=== PATIENT | female | born 1955 | race Caucasian/White ===

== ENCOUNTER 2017-10-12 14:17 | Emergency (ER) | payer MEDICAID ==
[~2017-10-12] VITALS: Ht 165.1 cm; Wt 101.4 kg
[~2017-10-12 14:17] MED LIST: ALBU18HF2 IH; ALLO100T PO; ASPI-611 PO; BUSP30TA2 PO; CLON0.5T23 PO; CLOP75TA33 PO; DULO-31 PO; GABA-532 PO; HYDR-565 PO; IPRA3AMP9 IH; LACT1CAP26 PO; LAMO200T PO; LANTUS SQ; LEVO750T46 PO; LISI10TA4 PO; METF1000 PO; NITR0.4T51 SL; PANT40TA4 PO; SITA50TA7 PO; TIOT18CA7 IH; TIZA-248 PO; TRIA15CR3 TOP; ZOLP10TA5 PO
[2017-10-12] MEDS ORDERED: methylPREDNISolone sod succ 125mg/2ml vial IV ONE (14:50)
[2017-10-12] MEDS ORDERED: ipratropium/albuterol 3ml nebule NEB ONE ×2 (14:50→18:45)
[2017-10-12 15:37] LABS: EOSINOPHILS % (AUTO) 4.8 % (0-6); HEMATOCRIT 38.3 % (35.0-45.0); HEMOGLOBIN 12.1 g/dl (12.0-16.0); LYMPHOCYTES % (AUTO) 27.1 % (21-51); MEAN CORPUSCULAR HEMOGLOBIN 25.1 PG (27.0-31.0); MEAN CORPUSCULAR HGB CONC 31.7 % (33.0-36.5); MEAN CORPUSCULAR VOLUME 79.4 FL (78-98); MEAN PLATELET VOLUME 6.9 FL (7.4-10.4); MONOCYTES % (AUTO) 7.4 % (2-12); NEUTROPHILS % (AUTO) 60.4 % (42-75); PLATELET COUNT 318 X10'3 (140-440); RED BLOOD COUNT 4.82 X10'6 (4.20-5.60); RED CELL DISTRIBUTION WIDTH 17.7 % (11.5-14.5); WHITE BLOOD COUNT 7.9 X10'3 (4.5-11.0)
[2017-10-12 15:38] LABS: BASOPHILS % (AUTO) 0.3 % (0-1); EOSINOPHILS # (AUTO) 0.4 X10'3 (0-0.9); LYMPHOCYTES # (AUTO) 2.1 X10'3 (1.1-4.8); MONOCYTES # (AUTO) 0.6 X10'3 (0-0.9); NEUTROPHILS # (AUTO) 4.8 X10'3 (1.8-7.7)
[2017-10-12 15:48] LABS: PARTIAL THROMBOPLASTIN TIME 25 SECONDS (22-32); PROTHROMBIN TIME 10.4 SECONDS (9.0-12.0)
[2017-10-12 15:54] LABS: ALANINE AMINOTRANSFERASE 218 U/L (12-78); ALBUMIN 3.3 G/DL (3.4-5.0); ALBUMIN/GLOBULIN RATIO 0.8 (1.1-1.5); ALKALINE PHOSPHATASE 119 IU/L (46-116); ANION GAP 9 (8-16); ASPARTATE AMINO TRANSFERASE 225 U/L (10-37); BILIRUBIN,TOTAL 0.3 MG/DL (0.1-1.0); BLOOD UREA NITROGEN 12 MG/DL (7-18); BUN/CREATININE RATIO 14.1 (6.6-38.0); CALCIUM 9.3 MG/DL (8.5-10.1); CHLORIDE 101 MMOL/L (99-107); CREATININE 0.85 MG/DL (0.40-0.90); GLUCOSE 129 MG/DL (70-104); POTASSIUM 4.2 MMOL/L (3.5-5.1); SODIUM 140 MMOL/L (135-145); TOTAL PROTEIN 7.2 G/DL (6.4-8.2); eGFR 68 ML/MIN
[2017-10-12 18:28] LABS: CLARITY,URINE Clear (Clear); COLOR,URINE Yellow (Yellow); GLUCOSE, URINE Negative (Neg); KETONES,URINE Negative (Neg); LEUKOCYTE ESTERASE ,URINE Negative (Neg); NITRITES, URINE Negative (Neg); OCCULT BLOOD,URINE Negative (Neg); PROTEIN,URINE Negative (Neg)
[2017-10-12 18:29] LABS: UA COLLECTION TYPE STRAIGHT CATH
[2017-10-12 19:09] VITALS: BP 132/63
[2017-10-22] MEDS ORDERED: PRED20TA PO (23:01)
[2017-10-22] MEDS ORDERED: AZIT250T2 PO (23:01)
== END 2017-10-12 19:11 | disposition home or self-care (01) ==
LOC: ER 14:18
DX: J44.1 Chronic obstructive pulmonary disease with (acute) exacerbation (principal); R74.0 Nonspecific elevation of levels of transaminase and lactic acid dehydrogenase [LDH]; I11.0 Hypertensive heart disease with heart failure; I50.9 Heart failure, unspecified; M19.90 Unspecified osteoarthritis, unspecified site; K21.9 Gastro-esophageal reflux disease without esophagitis; G89.29 Other chronic pain; G30.9 Alzheimer's disease, unspecified; F32.9 Major depressive disorder, single episode, unspecified; E78.00 Pure hypercholesterolemia, unspecified; E11.51 Type 2 diabetes mellitus with diabetic peripheral angiopathy without gangrene; F17.200 Nicotine dependence, unspecified, uncomplicated; F41.9 Anxiety disorder, unspecified; Z82.49 Family history of ischemic heart disease and other diseases of the circulatory system; Z95.1 Presence of aortocoronary bypass graft; Z90.710 Acquired absence of both cervix and uterus
CPT/HCPCS: 36415; 71010; 80053; 81003; 83880; 84484; 85025; 85610; 85730; 93005; 94640; 94760; 96374; 96375; 99285; A4353; J2930

== ENCOUNTER 2017-10-30 23:04 | Emergency (ER) | payer MEDICAID ==
[~2017-10-30] VITALS: Ht 165.1 cm; Wt 96.1 kg
[~2017-10-30 23:04] MED LIST changes: +AZIT250T2 PO; -LACT1CAP26 PO; -LEVO750T46 PO; +PRED20TA PO
[2017-10-31 00:11] LABS: CLARITY,URINE Clear (Clear); COLOR,URINE Yellow (Yellow); GLUCOSE, URINE >=1000 mg/dl (Neg); KETONES,URINE Negative (Neg); LEUKOCYTE ESTERASE ,URINE Negative (Neg); NITRITES, URINE Negative (Neg); OCCULT BLOOD,URINE Negative (Neg); PROTEIN,URINE Negative (Neg); UROBILINOGEN,URINE 0.2 E.U/dL (0.2-1.0)
[2017-10-31 00:47] LABS: UA COLLECTION TYPE VOIDED
[2017-10-31 01:12] LABS: BACTERIA,URINE FEW /HPF (Neg); MUCUS STRANDS NONE SEEN /LPF (Neg); RBC,URINE NONE SEEN /HPF (0-2); SQUAMOUS EPITHELIAL CELL,UR MODERATE /LPF (FEW); WBC,URINE NONE SEEN /HPF (0-4)
[2017-10-31 01:59] VITALS: BP 129/78
== END 2017-10-31 02:00 | disposition home or self-care (01) ==
LOC: ER 23:05
DX: E11.65 Type 2 diabetes mellitus with hyperglycemia (principal); G43.909 Migraine, unspecified, not intractable, without status migrainosus; I25.10 Atherosclerotic heart disease of native coronary artery without angina pectoris; I11.0 Hypertensive heart disease with heart failure; I50.9 Heart failure, unspecified; E78.00 Pure hypercholesterolemia, unspecified; J44.9 Chronic obstructive pulmonary disease, unspecified; K21.9 Gastro-esophageal reflux disease without esophagitis; M19.90 Unspecified osteoarthritis, unspecified site; G89.29 Other chronic pain; Z95.5 Presence of coronary angioplasty implant and graft; Z90.710 Acquired absence of both cervix and uterus; Z98.890 Other specified postprocedural states; Z88.7 Allergy status to serum and vaccine; Z88.6 Allergy status to analgesic agent; Z79.82 Long term (current) use of aspirin; Z79.899 Other long term (current) drug therapy; Z79.4 Long term (current) use of insulin
CPT/HCPCS: 81001; 81003; 82948; 99283; 99284

== ENCOUNTER 2017-12-24 17:31 | Inpatient (IN) | payer MEDICAID ==
[~2017-12-24] VITALS: Ht 165.1 cm; Wt 102.7 kg
[~2017-12-24 17:31] MED LIST changes: -AZIT250T2 PO; -PRED20TA PO
[2017-12-24] MEDS ORDERED: methylPREDNISolone sod succ 125mg/2ml vial IV ONE (18:50)
[2017-12-24] MEDS ORDERED: ipratropium/albuterol 3ml nebule NEB ONE (18:50)
[2017-12-24 19:15] LABS: BASOPHILS % (AUTO) 0.1 % (0-1); EOSINOPHILS # (AUTO) 0.1 X10'3 (0-0.9); EOSINOPHILS % (AUTO) 0.8 % (0-6); HEMATOCRIT 35.1 % (35.0-45.0); HEMOGLOBIN 11.6 g/dl (12.0-16.0); LYMPHOCYTES # (AUTO) 2.9 X10'3 (1.1-4.8); LYMPHOCYTES % (AUTO) 16.5 % (21-51); MEAN CORPUSCULAR HEMOGLOBIN 26.2 PG (27.0-31.0); MEAN CORPUSCULAR HGB CONC 33.1 % (33.0-36.5); MEAN CORPUSCULAR VOLUME 79.1 FL (78-98); MEAN PLATELET VOLUME 6.8 FL (7.4-10.4); MONOCYTES # (AUTO) 1.4 X10'3 (0-0.9); MONOCYTES % (AUTO) 7.8 % (2-12); NEUTROPHILS % (AUTO) 74.8 % (42-75); PLATELET COUNT 320 X10'3 (140-440); RED BLOOD COUNT 4.43 X10'6 (4.20-5.60); RED CELL DISTRIBUTION WIDTH 17.3 % (11.5-14.5); WHITE BLOOD COUNT 17.4 X10'3 (4.5-11.0)
[2017-12-24 19:49] LABS: CHLORIDE 94 MMOL/L (99-107); GLUCOSE 310 MG/DL (70-104); POTASSIUM 3.5 MMOL/L (3.5-5.1); SODIUM 134 MMOL/L (135-145)
[2017-12-24 19:50] LABS: ALANINE AMINOTRANSFERASE 22 U/L (12-78); ALBUMIN 2.9 G/DL (3.4-5.0); ALBUMIN/GLOBULIN RATIO 0.7 (1.1-1.5); ALKALINE PHOSPHATASE 103 IU/L (46-116); ANION GAP 13 (8-16); ASPARTATE AMINO TRANSFERASE 10 U/L (10-37); BILIRUBIN,TOTAL 0.5 MG/DL (0.1-1.0); BLOOD UREA NITROGEN 14 MG/DL (7-18); BUN/CREATININE RATIO 12.1 (6.6-38.0); CALCIUM 8.8 MG/DL (8.5-10.1); CREATININE 1.16 MG/DL (0.40-0.90); TOTAL CARBON DIOXIDE 26.6 MMOL/L (24-32); TOTAL PROTEIN 7.2 G/DL (6.4-8.2); eGFR 47 ML/MIN
[2017-12-24] MEDS ORDERED: levoFLOXACIN 750MG TABLET PO ONE (19:55)
[2017-12-24] MEDS ORDERED: ondansetron/PF 4mg/2ml inj IV ONE (20:00)
[2017-12-24] MEDS ORDERED: morphine 4 MG/ML inj SYRINge IV ONE ×2 (20:00→20:40)
[2017-12-24] MEDS ORDERED: LORazepam 2 mg/ml vial IV ONE (20:20)
[2017-12-24] MEDS ORDERED: albuterol 2.5 MG/3 ML nebule CONTNEB PRN (20:25)
[2017-12-24] MEDS ORDERED: normal saline 1000ml 1,000 ML IV ONE ×2 (20:25→21:00)
[2017-12-24] MEDS ORDERED: temazepam 15mg capsule PO PRN (21:00)
[2017-12-24] MEDS ORDERED: LIDOcaine 1.5% w/epinephrine 1:200,000 5ml ampul IJ ONE (21:05)
[2017-12-24] MEDS ORDERED: bisacodyl 10mg suppository rectal RC PRN (21:40)
[2017-12-24] MEDS ORDERED: HYDROcodone/acetaminophen 5mg/325mg tablet PO PRN (21:40)
[2017-12-24] MEDS ORDERED: non-formulary drug (Zolpidem Tartrate* (Ambien*) 1 TAB) PO PRN (21:40)
[2017-12-24] MEDS ORDERED: HYDROmorphone inj. 0.5 MG/0.5 ML DISP.SYRIN IV PRN (21:40)
[2017-12-24] MEDS ORDERED: HYDROcodone/acetaminophen 10/325mg tab PO PRN (21:40)
[2017-12-24] MEDS ORDERED: mag hydrox/Alum hydrox/simeth 30ml oral suspension PO PRN (21:40)
[2017-12-24] MEDS ORDERED: tizanidine 4mg tablet PO PRN (21:40)
[2017-12-24] MEDS ORDERED: acetaminophen 650mg rectal suppository RC PRN (21:40)
[2017-12-24] MEDS ORDERED: metoclopramide 5 mg/ml inj IV PRN (21:40)
[2017-12-24] MEDS ORDERED: ondansetron/PF 4mg/2ml inj IV PRN (21:40)
[2017-12-24] MEDS ORDERED: acetaminophen 325mg tablet PO PRN ×2 (21:40)
[2017-12-24] MEDS ORDERED: morphine 2 MG/ML inj. syringe IV PRN (21:40)
[2017-12-24] MEDS ORDERED: diphenhydrAMINE 50 mg/ml inj IV PRN (21:40)
[2017-12-24] MEDS ORDERED: zolpidem 5mg tablet PO PRN (21:45)
[2017-12-24] MEDS ORDERED: dextrose 50%-water 50ml dispensing syringe IV PRN ×2 (21:45)
[2017-12-24] MEDS ORDERED: dextrose ORAL solution 15 GM/59 ML bottle PO PRN ×2 (21:45)
[2017-12-24] MEDS ORDERED: glucagon, human recombinant 1mg kit SUBCUT PRN (21:45)
[2017-12-24] MEDS ORDERED: MESSAGE TO PHARMACY PO ONE (21:45)
[2017-12-24 22:10] LABS: HEMOGLOBIN A1C 9.8 % (4.5-6.2)
[2017-12-24 22:22] LABS: MAGNESIUM 1.8 MG/DL (1.5-2.4)
[2017-12-24 23:00] VITALS: BP 137/79
[2017-12-24] MEDS ORDERED: insulin Lispro (HumaLOG) vial - multi-dose SQ ONE (23:32)
[2017-12-24] MEDS: insulin Lispro (HumaLOG) vial - multi-dose SQ SCH (23:37)
[2017-12-24] MEDS: heparin, porcine 5000 units/ml vial SQ SCH (23:38)
[2017-12-24] MEDS: clonazePAM 0.5mg tablet PO SCH (23:38)
[2017-12-24] MEDS: morphine 2 MG/ML inj. syringe IV PRN (23:40)
[2017-12-24] MEDS: normal saline 1000ml 1,000 ML IV SCH (23:46)
[2017-12-25] MEDS ORDERED: non-formulary drug (Clonazepam 1 TAB) PO SCH
[2017-12-25] MEDS: HYDROcodone/acetaminophen 10/325mg tab PO PRN ×2 (02:48→08:28)
[2017-12-25] MEDS: morphine 2 MG/ML inj. syringe IV PRN (05:02)
[2017-12-25] MEDS: methylPREDNISolone sod succ 125mg/2ml vial IV SCH ×2 (07:16→19:08)
[2017-12-25] MEDS: HYDROmorphone inj. 0.5 MG/0.5 ML DISP.SYRIN IV PRN ×4 (07:16→23:30)
[2017-12-25] MEDS: levoFLOXACIN-Levaquin 500mg/D5 100 ML IV SCH (07:18)
[2017-12-25] MEDS: clopidogrel 75mg tablet PO SCH (07:18)
[2017-12-25] MEDS: busPIRone 15mg tablet PO SCH ×2 (07:18→19:10)
[2017-12-25] MEDS: lamoTRIgine 100mg tablet PO SCH (07:19)
[2017-12-25] MEDS: aspirin 81mg tablet.DR PO SCH (07:19)
[2017-12-25] MEDS: pantoprazole 40mg Tablet.DR PO SCH (07:19)
[2017-12-25] MEDS: allopurinol 100mg tablet PO SCH (07:19)
[2017-12-25] MEDS: docusate sod 100mg capsule PO SCH ×2 (07:19→19:09)
[2017-12-25] MEDS: heparin, porcine 5000 units/ml vial SQ SCH ×3 (07:20→23:29)
[2017-12-25] MEDS: gabapentin 300mg capsule PO SCH ×3 (07:20→21:45)
[2017-12-25] MEDS: duloxetine 30mg CAPSULE.DR PO SCH (07:20)
[2017-12-25] MEDS: clonazePAM 0.5mg tablet PO SCH ×3 (07:20→23:29)
[2017-12-25] MEDS: ipratropium/albuterol 3ml nebule NEB PRN ×2 (07:26→20:01)
[2017-12-25 07:30] LABS: BASOPHILS % (AUTO) 0 % (0-1); EOSINOPHILS # (AUTO) 0.2 X10'3 (0-0.9); EOSINOPHILS % (AUTO) 1.4 % (0-6); HEMATOCRIT 32.1 % (35.0-45.0); HEMOGLOBIN 10.4 g/dl (12.0-16.0); LYMPHOCYTES # (AUTO) 0.8 X10'3 (1.1-4.8); LYMPHOCYTES % (AUTO) 6.9 % (21-51); MEAN CORPUSCULAR HEMOGLOBIN 25.7 PG (27.0-31.0); MEAN CORPUSCULAR HGB CONC 32.5 % (33.0-36.5); MEAN CORPUSCULAR VOLUME 79.3 FL (78-98); MEAN PLATELET VOLUME 7.2 FL (7.4-10.4); MONOCYTES # (AUTO) 0.3 X10'3 (0-0.9); MONOCYTES % (AUTO) 2.3 % (2-12); NEUTROPHILS # (AUTO) 9.9 X10'3 (1.8-7.7); NEUTROPHILS % (AUTO) 89.4 % (42-75); PLATELET COUNT 284 X10'3 (140-440); RED BLOOD COUNT 4.05 X10'6 (4.20-5.60); WHITE BLOOD COUNT 11.1 X10'3 (4.5-11.0)
[2017-12-25 07:42] VITALS: BP 118/71
[2017-12-25 07:48] LABS: ALANINE AMINOTRANSFERASE 22 U/L (12-78); ALBUMIN 2.6 G/DL (3.4-5.0); ALBUMIN/GLOBULIN RATIO 0.6 (1.1-1.5); ALKALINE PHOSPHATASE 92 IU/L (46-116); ANION GAP 10 (8-16); ASPARTATE AMINO TRANSFERASE 9 U/L (10-37); BILIRUBIN,TOTAL 0.4 MG/DL (0.1-1.0); BLOOD UREA NITROGEN 16 MG/DL (7-18); BUN/CREATININE RATIO 20.8 (6.6-38.0); CALCIUM 8.4 MG/DL (8.5-10.1); CHLORIDE 100 MMOL/L (99-107); CREATININE 0.77 MG/DL (0.40-0.90); GLUCOSE 387 MG/DL (70-104); POTASSIUM 4.9 MMOL/L (3.5-5.1); SODIUM 136 MMOL/L (135-145); TOTAL CARBON DIOXIDE 25.6 MMOL/L (24-32); TOTAL PROTEIN 6.8 G/DL (6.4-8.2); eGFR 76 ML/MIN
[2017-12-25] MEDS ORDERED: non-formulary drug (Lamotrigine 1 TAB) PO SCH (08:00)
[2017-12-25] MEDS ORDERED: non-formulary drug (Aspirin (Aspir 81) 1 TAB) PO SCH (08:00)
[2017-12-25] MEDS ORDERED: non-formulary drug (Buspirone HCl 1 TAB) PO SCH (08:00)
[2017-12-25] MEDS: insulin Lispro (HumaLOG) vial - multi-dose SQ SCH ×3 (08:25→18:34)
[2017-12-25] MEDS ORDERED: HYDROmorphone 2mg/ml vial IV ONE (10:25)
[2017-12-25] MEDS ORDERED: HYDROmorphone inj. 0.5 MG/0.5 ML DISP.SYRIN IV ONE (10:35)
[2017-12-25] MEDS: normal saline 1000ml 1,000 ML IV SCH ×3 (10:42→23:30)
[2017-12-25 11:00] VITALS: BP 133/79
[2017-12-25] MEDS ORDERED: iohexol 350MG/ML 100ml bottle IV ONE (12:42)
[2017-12-25] MEDS: MESSAGE TO NURSING PO NR (13:21)
[2017-12-25] MEDS: metroNIDAZOLE-Flagyl 500mg/NS 100 ML IV SCH ×2 (19:08→23:29)
[2017-12-25] MEDS: diphenhydrAMINE 25mg capsule PO PRN (19:09)
[2017-12-25 19:30] VITALS: BP 113/77
[2017-12-25 23:41] VITALS: BP 117/75
[2017-12-26] MEDS: HYDROmorphone inj. 0.5 MG/0.5 ML DISP.SYRIN IV PRN ×5 (04:28→22:53)
[2017-12-26 06:00] LABS: BASOPHILS % (AUTO) 0.2 % (0-1); EOSINOPHILS # (AUTO) 0.1 X10'3 (0-0.9); EOSINOPHILS % (AUTO) 1.1 % (0-6); HEMATOCRIT 32.8 % (35.0-45.0); HEMOGLOBIN 10.5 g/dl (12.0-16.0); LYMPHOCYTES # (AUTO) 0.9 X10'3 (1.1-4.8); LYMPHOCYTES % (AUTO) 11.6 % (21-51); MEAN CORPUSCULAR HEMOGLOBIN 25.6 PG (27.0-31.0); MEAN PLATELET VOLUME 7.1 FL (7.4-10.4); MONOCYTES # (AUTO) 0.4 X10'3 (0-0.9); MONOCYTES % (AUTO) 4.4 % (2-12); NEUTROPHILS # (AUTO) 6.7 X10'3 (1.8-7.7); NEUTROPHILS % (AUTO) 82.7 % (42-75); PLATELET COUNT 330 X10'3 (140-440); RED CELL DISTRIBUTION WIDTH 16.9 % (11.5-14.5); WHITE BLOOD COUNT 8.1 X10'3 (4.5-11.0)
[2017-12-26 06:29] LABS: ALANINE AMINOTRANSFERASE 21 U/L (12-78); ALBUMIN 2.6 G/DL (3.4-5.0); ALBUMIN/GLOBULIN RATIO 0.6 (1.1-1.5); ALKALINE PHOSPHATASE 83 IU/L (46-116); ANION GAP 8 (8-16); ASPARTATE AMINO TRANSFERASE 11 U/L (10-37); BILIRUBIN,TOTAL 0.3 MG/DL (0.1-1.0); BLOOD UREA NITROGEN 19 MG/DL (7-18); BUN/CREATININE RATIO 25.7 (6.6-38.0); CALCIUM 8.9 MG/DL (8.5-10.1); CHLORIDE 103 MMOL/L (99-107); CREATININE 0.74 MG/DL (0.40-0.90); GLUCOSE 275 MG/DL (70-104); MAGNESIUM 2.4 MG/DL (1.5-2.4); PHOSPHORUS 4.1 MG/DL (2.3-4.5); POTASSIUM 4.7 MMOL/L (3.5-5.1); SODIUM 139 MMOL/L (135-145); TOTAL CARBON DIOXIDE 28.3 MMOL/L (24-32); TOTAL PROTEIN 6.7 G/DL (6.4-8.2); eGFR 80 ML/MIN
[2017-12-26] MEDS: levoFLOXACIN-Levaquin 500mg/D5 100 ML IV SCH (07:21)
[2017-12-26] MEDS: clopidogrel 75mg tablet PO SCH (07:22)
[2017-12-26] MEDS: pantoprazole 40mg Tablet.DR PO SCH (07:22)
[2017-12-26] MEDS: aspirin 81mg tablet.DR PO SCH (07:22)
[2017-12-26] MEDS: docusate sod 100mg capsule PO SCH ×2 (07:22→20:19)
[2017-12-26] MEDS: gabapentin 300mg capsule PO SCH ×3 (07:22→20:18)
[2017-12-26] MEDS: allopurinol 100mg tablet PO SCH (07:22)
[2017-12-26] MEDS: clonazePAM 0.5mg tablet PO SCH ×2 (07:23→17:17)
[2017-12-26] MEDS: duloxetine 30mg CAPSULE.DR PO SCH (07:23)
[2017-12-26] MEDS: lamoTRIgine 100mg tablet PO SCH (07:23)
[2017-12-26] MEDS: heparin, porcine 5000 units/ml vial SQ SCH ×2 (07:24→17:18)
[2017-12-26] MEDS: methylPREDNISolone sod succ 125mg/2ml vial IV SCH ×2 (07:32→20:19)
[2017-12-26] MEDS: busPIRone 15mg tablet PO SCH ×2 (07:35→20:18)
[2017-12-26 08:00] VITALS: BP 115/68
[2017-12-26] MEDS: insulin Lispro (HumaLOG) vial - multi-dose SQ SCH ×3 (08:15→20:18)
[2017-12-26] MEDS: metroNIDAZOLE-Flagyl 500mg/NS 100 ML IV SCH ×2 (09:35→17:17)
[2017-12-26] MEDS: MESSAGE TO NURSING PO NR (10:00)
[2017-12-26 12:00] VITALS: BP 126/76
[2017-12-26 18:00] VITALS: BP 126/76
[2017-12-26] MEDS: ipratropium/albuterol 3ml nebule NEB SCH ×2 (20:13→23:21)
[2017-12-26] MEDS: diphenhydrAMINE 25mg capsule PO PRN (20:19)
[2017-12-26] MEDS: magnesium hydroxide 30ml (MOM) UD suspension PO PRN (22:01)
[2017-12-27] VITALS: BP 126/72
[2017-12-27] MEDS: clonazePAM 0.5mg tablet PO SCH ×3 (00:19→15:51)
[2017-12-27] MEDS: metroNIDAZOLE-Flagyl 500mg/NS 100 ML IV SCH ×2 (00:19→08:32)
[2017-12-27] MEDS: heparin, porcine 5000 units/ml vial SQ SCH ×3 (00:19→15:51)
[2017-12-27] MEDS: HYDROmorphone inj. 0.5 MG/0.5 ML DISP.SYRIN IV PRN ×2 (02:53→06:59)
[2017-12-27] MEDS: ipratropium/albuterol 3ml nebule NEB SCH ×5 (03:20→19:19)
[2017-12-27 03:26] LABS: CLARITY,URINE CLEAR (Clear); COLOR,URINE YELLOW (Yellow); GLUCOSE, URINE >=1000 mg/dl (Neg); KETONES,URINE NEGATIVE (Neg); LEUKOCYTE ESTERASE ,URINE NEGATIVE (Neg); NITRITES, URINE NEGATIVE (Neg); OCCULT BLOOD,URINE NEGATIVE (Neg); PH,URINE 5.5 (4.8-8.0); PROTEIN,URINE NEGATIVE (Neg); UROBILINOGEN,URINE 0.2 E.U/dL (0.2-1.0)
[2017-12-27 03:28] LABS: UA COLLECTION TYPE CLN CATCH MIDSTREAM
[2017-12-27 03:32] LABS: BACTERIA,URINE FEW /HPF (Neg); RBC,URINE 0-2 /HPF (0-2); SQUAMOUS EPITHELIAL CELL,UR MODERATE /LPF (FEW); WBC,URINE 0-4 /HPF (0-4); YEAST FEW /HPF (NEGATIVE)
[2017-12-27 06:45] LABS: BASOPHILS % (AUTO) 0.3 % (0-1); EOSINOPHILS % (AUTO) 0 % (0-6); HEMATOCRIT 34.2 % (35.0-45.0); HEMOGLOBIN 11.3 g/dl (12.0-16.0); LYMPHOCYTES # (AUTO) 1.7 X10'3 (1.1-4.8); LYMPHOCYTES % (AUTO) 16.2 % (21-51); MEAN CORPUSCULAR HEMOGLOBIN 26.2 PG (27.0-31.0); MEAN CORPUSCULAR HGB CONC 32.9 % (33.0-36.5); MEAN CORPUSCULAR VOLUME 79.7 FL (78-98); MEAN PLATELET VOLUME 6.8 FL (7.4-10.4); MONOCYTES # (AUTO) 0.6 X10'3 (0-0.9); MONOCYTES % (AUTO) 5.8 % (2-12); NEUTROPHILS # (AUTO) 8.2 X10'3 (1.8-7.7); NEUTROPHILS % (AUTO) 77.7 % (42-75); PLATELET COUNT 382 X10'3 (140-440); RED BLOOD COUNT 4.29 X10'6 (4.20-5.60); RED CELL DISTRIBUTION WIDTH 17.1 % (11.5-14.5); WHITE BLOOD COUNT 10.5 X10'3 (4.5-11.0)
[2017-12-27 07:05] LABS: ALANINE AMINOTRANSFERASE 35 U/L (12-78); ALBUMIN 2.8 G/DL (3.4-5.0); ALBUMIN/GLOBULIN RATIO 0.7 (1.1-1.5); ALKALINE PHOSPHATASE 85 IU/L (46-116); ANION GAP 9 (8-16); ASPARTATE AMINO TRANSFERASE 32 U/L (10-37); BILIRUBIN,TOTAL 0.3 MG/DL (0.1-1.0); BLOOD UREA NITROGEN 22 MG/DL (7-18); BUN/CREATININE RATIO 23.9 (6.6-38.0); CALCIUM 8.6 MG/DL (8.5-10.1); CHLORIDE 98 MMOL/L (99-107); CREATININE 0.92 MG/DL (0.40-0.90); GLUCOSE 402 MG/DL (70-104); POTASSIUM 4.9 MMOL/L (3.5-5.1); SODIUM 135 MMOL/L (135-145); TOTAL CARBON DIOXIDE 28.3 MMOL/L (24-32); TOTAL PROTEIN 6.7 G/DL (6.4-8.2); eGFR 62 ML/MIN
[2017-12-27] MEDS: clopidogrel 75mg tablet PO SCH (07:22)
[2017-12-27] MEDS: aspirin 81mg tablet.DR PO SCH (07:23)
[2017-12-27] MEDS: pantoprazole 40mg Tablet.DR PO SCH (07:23)
[2017-12-27] MEDS: docusate sod 100mg capsule PO SCH (07:23)
[2017-12-27] MEDS: allopurinol 100mg tablet PO SCH (07:23)
[2017-12-27] MEDS: duloxetine 30mg CAPSULE.DR PO SCH (07:23)
[2017-12-27] MEDS: lamoTRIgine 100mg tablet PO SCH (07:23)
[2017-12-27] MEDS: gabapentin 300mg capsule PO SCH ×2 (07:23→13:48)
[2017-12-27] MEDS: methylPREDNISolone sod succ 125mg/2ml vial IV SCH ×2 (07:24→13:48)
[2017-12-27] MEDS: levoFLOXACIN-Levaquin 500mg/D5 100 ML IV SCH (07:29)
[2017-12-27 08:00] VITALS: BP 140/76
[2017-12-27] MEDS: busPIRone 15mg tablet PO SCH (08:25)
[2017-12-27] MEDS: insulin Lispro (HumaLOG) vial - multi-dose SQ SCH ×2 (08:25→12:45)
[2017-12-27] MEDS: diphenhydrAMINE 25mg capsule PO PRN (08:31)
[2017-12-27] MEDS: HYDROmorphone 2mg tablet PO PRN ×3 (10:15→15:51)
[2017-12-27 11:00] VITALS: BP 123/71
[2017-12-27] MEDS ORDERED: metroNIDAZOLE 500mg tablet PO SCH (16:00)
[2017-12-27] MEDS ORDERED: lactobacillus rhamnosus 10,000 MMU CELLS/CAPSULE PO SCH (17:30)
[2017-12-27] MEDS: magnesium hydroxide 30ml (MOM) UD suspension PO PRN (17:31)
[2017-12-27] MEDS ORDERED: AZIT500T PO (19:11)
[2017-12-28] MEDS ORDERED: levoFLOXACIN 500mg tablet PO SCH (11:00)
== END 2017-12-27 20:00 | disposition home or self-care (01) | DRG 139 ==
LOC: ER 17:32 → ED HOLD 21:39 → MED 3N 22:48
PROVIDERS: ADMIT Family Medicine; ATTEND Internal Medicine
PROC: 0H98XZZ Drainage of Buttock Skin, External Approach (ICD-10-PCS; 2017-12-24)
PROC: B32T1ZZ Computerized Tomography (CT Scan) of Left Pulmonary Artery using Low Osmolar Contrast (ICD-10-PCS; principal; 2017-12-25)
PROC: B3201ZZ Computerized Tomography (CT Scan) of Thoracic Aorta using Low Osmolar Contrast (ICD-10-PCS; 2017-12-25)
PROC: B32S1ZZ Computerized Tomography (CT Scan) of Right Pulmonary Artery using Low Osmolar Contrast (ICD-10-PCS; 2017-12-25)
DX: J18.9 Pneumonia, unspecified organism (principal); N17.9 Acute kidney failure, unspecified; E87.2 Acidosis; J44.0 Chronic obstructive pulmonary disease with (acute) lower respiratory infection; I50.9 Heart failure, unspecified; I11.0 Hypertensive heart disease with heart failure; L02.32 Furuncle of buttock; J44.1 Chronic obstructive pulmonary disease with (acute) exacerbation; L03.317 Cellulitis of buttock; E78.00 Pure hypercholesterolemia, unspecified; F15.11 Other stimulant abuse, in remission; F32.9 Major depressive disorder, single episode, unspecified; F41.9 Anxiety disorder, unspecified; G43.909 Migraine, unspecified, not intractable, without status migrainosus; M19.90 Unspecified osteoarthritis, unspecified site; M54.9 Dorsalgia, unspecified; F17.219 Nicotine dependence, cigarettes, with unspecified nicotine-induced disorders; G47.30 Sleep apnea, unspecified; E11.51 Type 2 diabetes mellitus with diabetic peripheral angiopathy without gangrene; E11.649 Type 2 diabetes mellitus with hypoglycemia without coma; G89.29 Other chronic pain; I25.10 Atherosclerotic heart disease of native coronary artery without angina pectoris; K21.9 Gastro-esophageal reflux disease without esophagitis; K31.9 Disease of stomach and duodenum, unspecified; K59.00 Constipation, unspecified; L02.31 Cutaneous abscess of buttock; R09.02 Hypoxemia; Z88.7 Allergy status to serum and vaccine; Z88.8 Allergy status to other drugs, medicaments and biological substances; Z79.02 Long term (current) use of antithrombotics/antiplatelets; Z79.4 Long term (current) use of insulin; Z79.82 Long term (current) use of aspirin; Z79.899 Other long term (current) drug therapy; Z82.49 Family history of ischemic heart disease and other diseases of the circulatory system; Z82.5 Family history of asthma and other chronic lower respiratory diseases; Z83.3 Family history of diabetes mellitus; Z86.73 Personal history of transient ischemic attack (TIA), and cerebral infarction without residual deficits; Z90.710 Acquired absence of both cervix and uterus; Z79.84 Long term (current) use of oral hypoglycemic drugs
CPT/HCPCS: 10060; 36415; 71045; 71275; 74021; 76775; 80053; 81001; 82948; 83036; 83605; 83735; 83880; 84100; 84484; 85025; 87040; 87070; 93005; 94640; 94667; 94668; 94760; 96361; 96374; 96375; 96376; 99285; A6212; A6449; J1170; J1644; J1956; J2060; J2270; J2405; J2930; J3490; J7030; Q0163; Q9967

== ENCOUNTER 2018-03-07 15:54 | Emergency (ER) | payer MEDICAID ==
[~2018-03-07] VITALS: Ht 165.1 cm; Wt 88.6 kg
[2018-03-07 16:41] LABS: BASOPHILS % (AUTO) 0.3 % (0-1); EOSINOPHILS # (AUTO) 0.7 X10'3 (0-0.9); EOSINOPHILS % (AUTO) 6.9 % (0-6); HEMOGLOBIN 11.9 g/dl (12.0-16.0); LYMPHOCYTES # (AUTO) 2.6 X10'3 (1.1-4.8); LYMPHOCYTES % (AUTO) 27.6 % (21-51); MEAN CORPUSCULAR HEMOGLOBIN 25.2 PG (27.0-31.0); MEAN CORPUSCULAR HGB CONC 32.2 % (33.0-36.5); MEAN CORPUSCULAR VOLUME 78.3 FL (78-98); MEAN PLATELET VOLUME 6.9 FL (7.4-10.4); MONOCYTES # (AUTO) 0.6 X10'3 (0-0.9); MONOCYTES % (AUTO) 6.1 % (2-12); NEUTROPHILS # (AUTO) 5.6 X10'3 (1.8-7.7); NEUTROPHILS % (AUTO) 59.1 % (42-75); PLATELET COUNT 355 X10'3 (140-440); RED BLOOD COUNT 4.73 X10'6 (4.20-5.60); RED CELL DISTRIBUTION WIDTH 17.3 % (11.5-14.5); WHITE BLOOD COUNT 9.4 X10'3 (4.5-11.0)
[2018-03-07 16:51] LABS: PARTIAL THROMBOPLASTIN TIME 25 SECONDS (22-32)
[2018-03-07 16:55] LABS: ALANINE AMINOTRANSFERASE 45 U/L (12-78); ALBUMIN 3.4 G/DL (3.4-5.0); ALBUMIN/GLOBULIN RATIO 0.9 (1.1-1.5); ALKALINE PHOSPHATASE 103 IU/L (46-116); ANION GAP 12 (8-16); ASPARTATE AMINO TRANSFERASE 35 U/L (10-37); BILIRUBIN,TOTAL 0.3 MG/DL (0.1-1.0); BLOOD UREA NITROGEN 8 MG/DL (7-18); CALCIUM 9.2 MG/DL (8.5-10.1); CHLORIDE 101 MMOL/L (99-107); CREATININE 0.73 MG/DL (0.40-0.90); GLUCOSE 234 MG/DL (70-104); POTASSIUM 4.1 MMOL/L (3.5-5.1); SODIUM 139 MMOL/L (135-145); TOTAL CARBON DIOXIDE 25.6 MMOL/L (24-32); TOTAL PROTEIN 7.3 G/DL (6.4-8.2); eGFR 81 ML/MIN
[2018-03-07] MEDS ORDERED: ondansetron 4mg rapidly disintigrating tab PO ONE (17:10)
[2018-03-07] MEDS ORDERED: ipratropium/albuterol 3ml nebule NEB ONE (17:10)
[2018-03-07] MEDS ORDERED: morphine 4 MG/ML inj SYRINge IV ONE (17:10)
[2018-03-07] MEDS ORDERED: methylPREDNISolone sod succ 125mg/2ml vial IV ONE (17:20)
[2018-03-07] MEDS ORDERED: nitroGLYCERIN 0.4mg/hour patch TD ONE (17:20)
[2018-03-07] MEDS ORDERED: azithromycin 250mg tablet PO ONE (17:55)
[2018-03-07] MEDS ORDERED: CefTRIAXone 2gm/D5W 50ml 50 ML IV ONE (17:55)
[2018-03-07] MEDS ORDERED: INSU100V9 SQ (18:40)
[2018-03-07] MEDS ORDERED: METF10002 PO (18:40)
[2018-03-07] MEDS ORDERED: CLON1TAB4 PO (18:40)
[2018-03-07] MEDS ORDERED: GABA-534 PO (18:40)
[2018-03-07] MEDS ORDERED: albuterol 2.5 MG/3 ML nebule NEB PRN (18:45)
[2018-03-07] MEDS ORDERED: HYDROcodone/acetaminophen 10/325mg tab PO PRN (18:45)
[2018-03-07] MEDS ORDERED: nitroGLYCERIN 0.4mg SUBLingual tab SL PRN (18:45)
[2018-03-07] MEDS ORDERED: zolpidem 5mg tablet PO PRN (19:00)
[2018-03-07] MEDS ORDERED: busPIRone 15mg tablet PO SCH (20:00)
[2018-03-07] MEDS ORDERED: clonazePAM 1mg tablet PO SCH (20:00)
[2018-03-07] MEDS ORDERED: ipratropium/albuterol 3ml nebule IH SCH (21:00)
[2018-03-07] MEDS ORDERED: gabapentin 400mg capsule PO SCH (21:00)
[2018-03-07] MEDS ORDERED: insulin glargine (Lantus) pen - multi-dose SQ SCH (21:00)
[2018-03-07 21:56] VITALS: BP 154/85
[2018-03-07] MEDS ORDERED: ipratropium 0.5 MG/2.5ML nebule IH SCH (23:00)
[2018-03-08] MEDS ORDERED: aspirin 81mg tablet.DR PO SCH (08:00)
[2018-03-08] MEDS ORDERED: lamoTRIgine 100mg tablet PO SCH (08:00)
[2018-03-08] MEDS ORDERED: allopurinol 100mg tablet PO SCH (08:00)
[2018-03-08] MEDS ORDERED: pantoprazole 40mg Tablet.DR PO SCH (08:00)
[2018-03-08] MEDS ORDERED: clopidogrel 75mg tablet PO SCH (08:00)
[2018-03-08] MEDS ORDERED: lisinopril 10 MG tablet PO SCH (08:00)
[2018-03-08] MEDS ORDERED: duloxetine 30mg CAPSULE.DR PO SCH (08:00)
== END 2018-03-07 23:15 | disposition home or self-care (01) ==
LOC: ER 15:55
DX: J44.1 Chronic obstructive pulmonary disease with (acute) exacerbation (principal); I11.0 Hypertensive heart disease with heart failure; I50.9 Heart failure, unspecified; I25.10 Atherosclerotic heart disease of native coronary artery without angina pectoris; K21.9 Gastro-esophageal reflux disease without esophagitis; M19.90 Unspecified osteoarthritis, unspecified site; G30.9 Alzheimer's disease, unspecified; E78.00 Pure hypercholesterolemia, unspecified; E11.9 Type 2 diabetes mellitus without complications; G43.909 Migraine, unspecified, not intractable, without status migrainosus; Z88.6 Allergy status to analgesic agent; Z88.7 Allergy status to serum and vaccine; Z79.82 Long term (current) use of aspirin; Z79.4 Long term (current) use of insulin; Z95.1 Presence of aortocoronary bypass graft
CPT/HCPCS: 36415; 71045; 80053; 82948; 83880; 84484; 85025; 85610; 85730; 94640; 94760; 96365; 96375; 99285; J0696; J1815; J2270; J2930

== ENCOUNTER 2018-03-20 16:16 | Inpatient (IN) | payer MEDICAID ==
[~2018-03-20] VITALS: Ht 165.1 cm; Wt 94.0 kg
[~2018-03-20 16:16] MED LIST changes: -CLON0.5T23 PO; +CLON1TAB4 PO; -GABA-532 PO; +GABA-534 PO; +INSU100V9 SQ; -LANTUS SQ; -METF1000 PO; +METF10004 PO; -SITA50TA7 PO
[2018-03-20] MEDS ORDERED: ondansetron/PF 4mg/2ml inj IV ONE ×2 (16:50→17:00)
[2018-03-20] MEDS ORDERED: CefTRIAXone 2gm/D5W 50ml 50 ML IV ONE (16:50)
[2018-03-20] MEDS ORDERED: levoFLOXACIN-Levaquin 750MG/D5 150 ML IV ONE (16:50)
[2018-03-20] MEDS ORDERED: morphine 4 MG/ML inj SYRINge IV ONE (16:50)
[2018-03-20] MEDS ORDERED: magnesium 2GM in 50ml NS 50 ML IV ONE (17:00)
[2018-03-20] MEDS ORDERED: normal saline 1000ML IV soln IVB ONE (17:00)
[2018-03-20 17:04] LABS: BASOPHILS % (AUTO) 0.1 % (0-1); EOSINOPHILS # (AUTO) 0.7 X10'3 (0-0.9); EOSINOPHILS % (AUTO) 7.4 % (0-6); HEMATOCRIT 36.4 % (35.0-45.0); HEMOGLOBIN 11.7 g/dl (12.0-16.0); LYMPHOCYTES # (AUTO) 2.9 X10'3 (1.1-4.8); LYMPHOCYTES % (AUTO) 30.8 % (21-51); MEAN CORPUSCULAR HEMOGLOBIN 25.6 PG (27.0-31.0); MEAN CORPUSCULAR HGB CONC 32.3 % (33.0-36.5); MEAN CORPUSCULAR VOLUME 79.2 FL (78-98); MEAN PLATELET VOLUME 6.9 FL (7.4-10.4); MONOCYTES # (AUTO) 0.5 X10'3 (0-0.9); NEUTROPHILS # (AUTO) 5.4 X10'3 (1.8-7.7); NEUTROPHILS % (AUTO) 56.7 % (42-75); PLATELET COUNT 312 X10'3 (140-440); RED BLOOD COUNT 4.59 X10'6 (4.20-5.60); WHITE BLOOD COUNT 9.5 X10'3 (4.5-11.0)
[2018-03-20 17:17] LABS: PARTIAL THROMBOPLASTIN TIME 25 SECONDS (22-32); PROTHROMBIN TIME 10.1 SECONDS (9.0-12.0)
[2018-03-20 17:23] LABS: ALANINE AMINOTRANSFERASE 40 U/L (12-78); ALBUMIN 3.4 G/DL (3.4-5.0); ALBUMIN/GLOBULIN RATIO 0.9 (1.1-1.5); ALKALINE PHOSPHATASE 111 IU/L (46-116); ANION GAP 9 (8-16); ASPARTATE AMINO TRANSFERASE 18 U/L (10-37); BILIRUBIN,TOTAL 0.4 MG/DL (0.1-1.0); BLOOD UREA NITROGEN 8 MG/DL (7-18); BUN/CREATININE RATIO 9.5 (6.6-38.0); CALCIUM 9.3 MG/DL (8.5-10.1); CHLORIDE 100 MMOL/L (99-107); CREATININE 0.84 MG/DL (0.40-0.90); GLUCOSE 273 MG/DL (70-104); SODIUM 137 MMOL/L (135-145); TOTAL CARBON DIOXIDE 27.8 MMOL/L (24-32); eGFR 69 ML/MIN
[2018-03-20] MEDS ORDERED: albuterol 2.5 MG/3 ML nebule NEB ONE (18:15)
[2018-03-20] MEDS: morphine 4 MG/ML inj SYRINge IV PRN ×2 (19:16→23:03)
[2018-03-20] MEDS ORDERED: mag hydrox/Alum hydrox/simeth 30ml oral suspension PO PRN (19:25)
[2018-03-20] MEDS ORDERED: acetaminophen 325mg tablet PO PRN (19:25)
[2018-03-20] MEDS ORDERED: magnesium hydroxide 30ml (MOM) UD suspension PO PRN (19:25)
[2018-03-20] MEDS ORDERED: ondansetron/PF 4mg/2ml inj IV PRN (19:25)
[2018-03-20] MEDS ORDERED: glucagon, human recombinant 1mg kit SUBCUT PRN (19:40)
[2018-03-20] MEDS ORDERED: albuterol 2.5 MG/3 ML nebule NEB PRN (19:40)
[2018-03-20] MEDS ORDERED: dextrose ORAL solution 15 GM/59 ML bottle PO PRN ×2 (19:40)
[2018-03-20] MEDS ORDERED: dextrose 50%-water 50ml dispensing syringe IV PRN ×2 (19:40)
[2018-03-20] MEDS ORDERED: MESSAGE TO PHARMACY PO ONE (19:40)
[2018-03-20] MEDS ORDERED: nitroGLYCERIN 0.4mg SUBLingual tab SL PRN (19:45)
[2018-03-20 20:05] LABS: HEMOGLOBIN A1C 9.1 % (4.5-6.2)
[2018-03-20] MEDS ORDERED: ipratropium 0.5 MG/2.5ML nebule IH PRN (20:25)
[2018-03-20 20:30] VITALS: BP 127/81
[2018-03-20] MEDS: clonazePAM 1mg tablet PO SCH (20:36)
[2018-03-20] MEDS ORDERED: busPIRone 15mg tablet PO SCH (21:00)
[2018-03-20] MEDS ORDERED: INSULIN GLARGINE HUM REC ANLOG 36 UNIT SQ SCH (21:00)
[2018-03-20] MEDS ORDERED: insulin glargine (Lantus) pen - multi-dose SQ SCH (21:00)
[2018-03-20] MEDS: gabapentin 400mg capsule PO SCH (21:17)
[2018-03-20] MEDS: methylPREDNISolone sod succ 125mg/2ml vial IV SCH (23:11)
[2018-03-20] MEDS ORDERED: zolpidem 5mg tablet PO PRN (23:35)
[2018-03-21] VITALS: BP 112/60
[2018-03-21] MEDS: morphine 4 MG/ML inj SYRINge IV PRN ×4 (03:08→21:48)
[2018-03-21 04:50] LABS: BASOPHILS % (AUTO) 0.1 % (0-1); EOSINOPHILS # (AUTO) 0.2 X10'3 (0-0.9); EOSINOPHILS % (AUTO) 2.8 % (0-6); HEMATOCRIT 35.6 % (35.0-45.0); HEMOGLOBIN 11.4 g/dl (12.0-16.0); LYMPHOCYTES # (AUTO) 0.9 X10'3 (1.1-4.8); LYMPHOCYTES % (AUTO) 13.7 % (21-51); MEAN CORPUSCULAR HEMOGLOBIN 25.6 PG (27.0-31.0); MEAN CORPUSCULAR VOLUME 79.8 FL (78-98); MEAN PLATELET VOLUME 7.5 FL (7.4-10.4); MONOCYTES # (AUTO) 0.1 X10'3 (0-0.9); MONOCYTES % (AUTO) 1.1 % (2-12); NEUTROPHILS # (AUTO) 5.6 X10'3 (1.8-7.7); NEUTROPHILS % (AUTO) 82.3 % (42-75); PLATELET COUNT 267 X10'3 (140-440); RED BLOOD COUNT 4.46 X10'6 (4.20-5.60); RED CELL DISTRIBUTION WIDTH 17.7 % (11.5-14.5); WHITE BLOOD COUNT 6.9 X10'3 (4.5-11.0)
[2018-03-21 05:20] LABS: ALANINE AMINOTRANSFERASE 34 U/L (12-78); ALBUMIN 3.1 G/DL (3.4-5.0); ALBUMIN/GLOBULIN RATIO 0.9 (1.1-1.5); ALKALINE PHOSPHATASE 102 IU/L (46-116); ANION GAP 9 (8-16); ASPARTATE AMINO TRANSFERASE 16 U/L (10-37); BILIRUBIN,TOTAL 0.3 MG/DL (0.1-1.0); BLOOD UREA NITROGEN 10 MG/DL (7-18); BUN/CREATININE RATIO 11.8 (6.6-38.0); CALCIUM 8.9 MG/DL (8.5-10.1); CHLORIDE 101 MMOL/L (99-107); CREATININE 0.85 MG/DL (0.40-0.90); GLUCOSE 319 MG/DL (70-104); POTASSIUM 4.6 MMOL/L (3.5-5.1); SODIUM 137 MMOL/L (135-145); TOTAL CARBON DIOXIDE 27.2 MMOL/L (24-32); TOTAL PROTEIN 6.7 G/DL (6.4-8.2); eGFR 68 ML/MIN
[2018-03-21] MEDS: lisinopril 10 MG tablet PO SCH (08:00)
[2018-03-21 08:12] VITALS: BP 97/61
[2018-03-21] MEDS: methylPREDNISolone sod succ 125mg/2ml vial IV SCH ×2 (08:44→15:53)
[2018-03-21] MEDS: clonazePAM 1mg tablet PO SCH ×2 (08:45→19:42)
[2018-03-21] MEDS: duloxetine 30mg CAPSULE.DR PO SCH (08:45)
[2018-03-21] MEDS: clopidogrel 75mg tablet PO SCH (08:47)
[2018-03-21] MEDS: lamoTRIgine 100mg tablet PO SCH (08:47)
[2018-03-21] MEDS: gabapentin 400mg capsule PO SCH ×3 (08:47→21:47)
[2018-03-21] MEDS: pantoprazole 40mg Tablet.DR PO SCH (08:48)
[2018-03-21] MEDS: allopurinol 100mg tablet PO SCH (08:49)
[2018-03-21] MEDS: enoxaparin 40mg/0.4ml syringe SUBCUT SCH (08:49)
[2018-03-21] MEDS: HYDROcodone/acetaminophen 10/325mg tab PO PRN (08:50)
[2018-03-21] MEDS: busPIRone 5mg tablet PO SCH ×2 (09:00→19:43)
[2018-03-21] MEDS: insulin Lispro (HumaLOG) vial - multi-dose SQ SCH ×4 (09:02→21:44)
[2018-03-21] MEDS: aspirin 81mg tab.chew PO SCH (09:05)
[2018-03-21 11:58] VITALS: BP 113/76
[2018-03-21] MEDS: ipratropium/albuterol 3ml nebule NEB SCH ×2 (16:35→22:13)
[2018-03-21 18:00] VITALS: BP 108/60
[2018-03-21] MEDS: insulin glargine (Lantus) pen - multi-dose SQ SCH (21:46)
[2018-03-21] MEDS: levoFLOXACIN-Levaquin 500mg/D5 100 ML IV SCH (22:06)
[2018-03-21] MEDS: methylPREDNISolone sod succ/PF 40mg inj. IV SCH (23:48)
[2018-03-22] VITALS: BP 107/55
[2018-03-22] MEDS: morphine 4 MG/ML inj SYRINge IV PRN ×6 (01:44→23:15)
[2018-03-22] MEDS: ipratropium/albuterol 3ml nebule NEB SCH ×4 (03:03→20:28)
[2018-03-22 06:00] LABS: BASOPHILS % (AUTO) 0.1 % (0-1); EOSINOPHILS # (AUTO) 0.1 X10'3 (0-0.9); EOSINOPHILS % (AUTO) 1.3 % (0-6); HEMATOCRIT 33.3 % (35.0-45.0); HEMOGLOBIN 10.6 g/dl (12.0-16.0); LYMPHOCYTES # (AUTO) 0.8 X10'3 (1.1-4.8); LYMPHOCYTES % (AUTO) 13.4 % (21-51); MEAN CORPUSCULAR HEMOGLOBIN 25.4 PG (27.0-31.0); MEAN CORPUSCULAR VOLUME 79.5 FL (78-98); MEAN PLATELET VOLUME 7.5 FL (7.4-10.4); MONOCYTES # (AUTO) 0.1 X10'3 (0-0.9); MONOCYTES % (AUTO) 2.1 % (2-12); NEUTROPHILS # (AUTO) 5.1 X10'3 (1.8-7.7); NEUTROPHILS % (AUTO) 83.1 % (42-75); PLATELET COUNT 271 X10'3 (140-440); RED BLOOD COUNT 4.19 X10'6 (4.20-5.60); RED CELL DISTRIBUTION WIDTH 17.9 % (11.5-14.5); WHITE BLOOD COUNT 6.2 X10'3 (4.5-11.0)
[2018-03-22 06:25] LABS: ALANINE AMINOTRANSFERASE 33 U/L (12-78); ALBUMIN 3.2 G/DL (3.4-5.0); ALBUMIN/GLOBULIN RATIO 0.9 (1.1-1.5); ALKALINE PHOSPHATASE 90 IU/L (46-116); ANION GAP 9 (8-16); ASPARTATE AMINO TRANSFERASE 13 U/L (10-37); BILIRUBIN,TOTAL 0.2 MG/DL (0.1-1.0); BLOOD UREA NITROGEN 13 MG/DL (7-18); BUN/CREATININE RATIO 15.1 (6.6-38.0); CALCIUM 9.5 MG/DL (8.5-10.1); CHLORIDE 100 MMOL/L (99-107); CREATININE 0.86 MG/DL (0.40-0.90); GLUCOSE 369 MG/DL (70-104); POTASSIUM 4.7 MMOL/L (3.5-5.1); SODIUM 139 MMOL/L (135-145); TOTAL CARBON DIOXIDE 29.9 MMOL/L (24-32); TOTAL PROTEIN 6.7 G/DL (6.4-8.2); eGFR 67 ML/MIN
[2018-03-22 07:30] VITALS: BP 107/53
[2018-03-22] MEDS: methylPREDNISolone sod succ/PF 40mg inj. IV SCH ×2 (08:00→16:00)
[2018-03-22] MEDS: gabapentin 400mg capsule PO SCH ×3 (08:00→21:17)
[2018-03-22] MEDS: clopidogrel 75mg tablet PO SCH (08:00)
[2018-03-22] MEDS: duloxetine 30mg CAPSULE.DR PO SCH (08:00)
[2018-03-22] MEDS: enoxaparin 40mg/0.4ml syringe SUBCUT SCH (08:00)
[2018-03-22] MEDS: busPIRone 5mg tablet PO SCH ×2 (08:00→19:02)
[2018-03-22] MEDS: levoFLOXACIN-Levaquin 500mg/D5 100 ML IV SCH (08:00)
[2018-03-22] MEDS: allopurinol 100mg tablet PO SCH (08:00)
[2018-03-22] MEDS: pantoprazole 40mg Tablet.DR PO SCH (08:00)
[2018-03-22] MEDS: lamoTRIgine 100mg tablet PO SCH (08:00)
[2018-03-22] MEDS: clonazePAM 1mg tablet PO SCH ×2 (08:00→19:03)
[2018-03-22] MEDS: aspirin 81mg tab.chew PO SCH (08:30)
[2018-03-22] MEDS: insulin Lispro (HumaLOG) vial - multi-dose SQ SCH ×3 (09:37→19:12)
[2018-03-22 12:23] VITALS: BP 125/77
[2018-03-22] MEDS: lisinopril 10 MG tablet PO SCH (12:38)
[2018-03-22 18:00] VITALS: BP 100/57
[2018-03-22] MEDS: lactobacillus rhamnosus 10,000 MMU CELLS/CAPSULE PO SCH (19:03)
[2018-03-22] MEDS: insulin glargine (Lantus) pen - multi-dose SQ SCH (21:23)
[2018-03-23] VITALS: BP 99/54
[2018-03-23] MEDS: ipratropium/albuterol 3ml nebule NEB SCH ×4 (02:49→20:22)
[2018-03-23] MEDS: morphine 4 MG/ML inj SYRINge IV PRN ×3 (03:05→11:47)
[2018-03-23 05:27] LABS: BASOPHILS % (AUTO) 0.2 % (0-1); EOSINOPHILS % (AUTO) 0.5 % (0-6); HEMATOCRIT 33.3 % (35.0-45.0); HEMOGLOBIN 10.6 g/dl (12.0-16.0); LYMPHOCYTES # (AUTO) 2.6 X10'3 (1.1-4.8); LYMPHOCYTES % (AUTO) 30.8 % (21-51); MEAN CORPUSCULAR HEMOGLOBIN 25.2 PG (27.0-31.0); MEAN CORPUSCULAR HGB CONC 31.7 % (33.0-36.5); MEAN CORPUSCULAR VOLUME 79.5 FL (78-98); MEAN PLATELET VOLUME 7.1 FL (7.4-10.4); MONOCYTES # (AUTO) 0.6 X10'3 (0-0.9); MONOCYTES % (AUTO) 6.5 % (2-12); NEUTROPHILS # (AUTO) 5.3 X10'3 (1.8-7.7); PLATELET COUNT 270 X10'3 (140-440); RED BLOOD COUNT 4.19 X10'6 (4.20-5.60); RED CELL DISTRIBUTION WIDTH 18.8 % (11.5-14.5); WHITE BLOOD COUNT 8.5 X10'3 (4.5-11.0)
[2018-03-23 05:47] LABS: ALANINE AMINOTRANSFERASE 38 U/L (12-78); ALBUMIN 3.2 G/DL (3.4-5.0); ALKALINE PHOSPHATASE 78 IU/L (46-116); ANION GAP 8 (8-16); ASPARTATE AMINO TRANSFERASE 32 U/L (10-37); BILIRUBIN,TOTAL 0.3 MG/DL (0.1-1.0); BLOOD UREA NITROGEN 19 MG/DL (7-18); BUN/CREATININE RATIO 22.4 (6.6-38.0); CHLORIDE 100 MMOL/L (99-107); CREATININE 0.85 MG/DL (0.40-0.90); GLUCOSE 230 MG/DL (70-104); POTASSIUM 3.7 MMOL/L (3.5-5.1); SODIUM 138 MMOL/L (135-145); TOTAL CARBON DIOXIDE 30.4 MMOL/L (24-32); TOTAL PROTEIN 6.4 G/DL (6.4-8.2); TROPONIN I < 0.04 NG/ML (0.0-0.05); eGFR 68 ML/MIN
[2018-03-23] MEDS: busPIRone 5mg tablet PO SCH ×2 (07:51→20:41)
[2018-03-23] MEDS: lamoTRIgine 100mg tablet PO SCH (07:52)
[2018-03-23] MEDS: predniSONE 20 mg tablet PO SCH (07:52)
[2018-03-23] MEDS: gabapentin 400mg capsule PO SCH ×3 (07:52→20:41)
[2018-03-23] MEDS: lactobacillus rhamnosus 10,000 MMU CELLS/CAPSULE PO SCH ×2 (07:53→20:41)
[2018-03-23] MEDS: duloxetine 30mg CAPSULE.DR PO SCH (07:53)
[2018-03-23] MEDS: lisinopril 10 MG tablet PO SCH (07:54)
[2018-03-23] MEDS: aspirin 81mg tab.chew PO SCH (07:54)
[2018-03-23] MEDS: allopurinol 100mg tablet PO SCH (07:54)
[2018-03-23] MEDS: clopidogrel 75mg tablet PO SCH (07:55)
[2018-03-23] MEDS: clonazePAM 1mg tablet PO SCH ×2 (07:55→20:41)
[2018-03-23] MEDS: pantoprazole 40mg Tablet.DR PO SCH (07:55)
[2018-03-23] MEDS: levoFLOXACIN-Levaquin 500mg/D5 100 ML IV SCH (07:56)
[2018-03-23] MEDS: enoxaparin 40mg/0.4ml syringe SUBCUT SCH (07:56)
[2018-03-23] MEDS: HYDROcodone/acetaminophen 10/325mg tab PO PRN ×3 (09:05→18:50)
[2018-03-23] MEDS: insulin Lispro (HumaLOG) vial - multi-dose SQ SCH ×3 (10:04→19:03)
[2018-03-23] MEDS ORDERED: HYDROcodone/acetaminophen 10/325mg tab PO PRN (13:55)
[2018-03-23] MEDS ORDERED: ipratropium/albuterol 3ml nebule NEB PRN (13:55)
[2018-03-23] MEDS: guaiFENesin/codeine phos 10ml UD oral syrup PO PRN ×2 (14:43→18:54)
[2018-03-23 20:00] VITALS: BP 95/58
[2018-03-23] MEDS: insulin glargine (Lantus) pen - multi-dose SQ SCH (22:05)
[2018-03-24] VITALS: BP 96/56
[2018-03-24] MEDS: guaiFENesin/codeine phos 10ml UD oral syrup PO PRN ×3 (00:19→10:00)
[2018-03-24] MEDS: HYDROcodone/acetaminophen 10/325mg tab PO PRN ×3 (00:19→09:00)
[2018-03-24] MEDS: ipratropium/albuterol 3ml nebule NEB SCH ×3 (02:49→15:58)
[2018-03-24] MEDS: pantoprazole 40mg Tablet.DR PO SCH (07:16)
[2018-03-24] MEDS: clopidogrel 75mg tablet PO SCH (07:16)
[2018-03-24] MEDS: lactobacillus rhamnosus 10,000 MMU CELLS/CAPSULE PO SCH (07:16)
[2018-03-24] MEDS: lisinopril 10 MG tablet PO SCH (07:16)
[2018-03-24] MEDS: clonazePAM 1mg tablet PO SCH (07:17)
[2018-03-24] MEDS: lamoTRIgine 100mg tablet PO SCH (07:18)
[2018-03-24] MEDS: busPIRone 5mg tablet PO SCH (07:18)
[2018-03-24] MEDS: gabapentin 400mg capsule PO SCH ×2 (07:20→13:06)
[2018-03-24] MEDS: duloxetine 30mg CAPSULE.DR PO SCH (07:20)
[2018-03-24] MEDS: predniSONE 20 mg tablet PO SCH (07:21)
[2018-03-24] MEDS: allopurinol 100mg tablet PO SCH (07:21)
[2018-03-24] MEDS: enoxaparin 40mg/0.4ml syringe SUBCUT SCH (07:21)
[2018-03-24 07:25] VITALS: BP 131/82
[2018-03-24] MEDS: insulin Lispro (HumaLOG) vial - multi-dose SQ SCH ×3 (08:58→19:50)
[2018-03-24] MEDS: aspirin 81mg tab.chew PO SCH (09:00)
[2018-03-24] MEDS ORDERED: levoFLOXACIN 500mg tablet PO SCH (11:00)
[2018-03-24 11:48] LABS: BASOPHILS % (AUTO) 0.3 % (0-1); EOSINOPHILS # (AUTO) 0.1 X10'3 (0-0.9); EOSINOPHILS % (AUTO) 1.3 % (0-6); HEMATOCRIT 35.2 % (35.0-45.0); HEMOGLOBIN 11.3 g/dl (12.0-16.0); LYMPHOCYTES # (AUTO) 1.3 X10'3 (1.1-4.8); LYMPHOCYTES % (AUTO) 19.8 % (21-51); MEAN CORPUSCULAR HEMOGLOBIN 25.4 PG (27.0-31.0); MEAN CORPUSCULAR VOLUME 79.3 FL (78-98); MEAN PLATELET VOLUME 7.1 FL (7.4-10.4); MONOCYTES # (AUTO) 0.3 X10'3 (0-0.9); MONOCYTES % (AUTO) 5.1 % (2-12); NEUTROPHILS # (AUTO) 4.7 X10'3 (1.8-7.7); NEUTROPHILS % (AUTO) 73.5 % (42-75); PLATELET COUNT 295 X10'3 (140-440); RED BLOOD COUNT 4.44 X10'6 (4.20-5.60); RED CELL DISTRIBUTION WIDTH 18.7 % (11.5-14.5); WHITE BLOOD COUNT 6.4 X10'3 (4.5-11.0)
[2018-03-24 12:00] VITALS: BP 106/70
[2018-03-24 12:04] LABS: ALANINE AMINOTRANSFERASE 84 U/L (12-78); ALBUMIN 3.4 G/DL (3.4-5.0); ALKALINE PHOSPHATASE 80 IU/L (46-116); ANION GAP 6 (8-16); ASPARTATE AMINO TRANSFERASE 75 U/L (10-37); BILIRUBIN,TOTAL 0.3 MG/DL (0.1-1.0); BLOOD UREA NITROGEN 16 MG/DL (7-18); BUN/CREATININE RATIO 19.5 (6.6-38.0); CALCIUM 9.1 MG/DL (8.5-10.1); CHLORIDE 101 MMOL/L (99-107); CREATININE 0.82 MG/DL (0.40-0.90); GLUCOSE 256 MG/DL (70-104); POTASSIUM 4.7 MMOL/L (3.5-5.1); SODIUM 139 MMOL/L (135-145); TOTAL CARBON DIOXIDE 31.9 MMOL/L (24-32); TOTAL PROTEIN 6.9 G/DL (6.4-8.2); eGFR 71 ML/MIN
[2018-03-24] MEDS: morphine 2 MG/ML inj. syringe IV PRN ×2 (13:06→19:56)
[2018-03-24] MEDS ORDERED: albuterol 2.5 MG/3 ML nebule NEB SCH (16:00)
[2018-03-24 20:00] VITALS: BP 131/62
[2018-03-24] MEDS ORDERED: predniSONE 20 mg tablet PO SCH (20:00)
== END 2018-03-24 20:45 | disposition left against medical advice (07) | DRG 140 ==
LOC: ER 16:16 → ED HOLD 19:22 → SUR 3N 20:40
PROVIDERS: ADMIT Internal Medicine; ATTEND Emergency Medicine
DX: J44.1 Chronic obstructive pulmonary disease with (acute) exacerbation (principal); J96.20 Acute and chronic respiratory failure, unspecified whether with hypoxia or hypercapnia; E11.51 Type 2 diabetes mellitus with diabetic peripheral angiopathy without gangrene; I11.0 Hypertensive heart disease with heart failure; E66.01 Morbid (severe) obesity due to excess calories; I50.9 Heart failure, unspecified; F17.200 Nicotine dependence, unspecified, uncomplicated; F32.9 Major depressive disorder, single episode, unspecified; F41.9 Anxiety disorder, unspecified; G43.909 Migraine, unspecified, not intractable, without status migrainosus; E11.65 Type 2 diabetes mellitus with hyperglycemia; G89.29 Other chronic pain; Z53.21 Procedure and treatment not carried out due to patient leaving prior to being seen by health care provider; M19.90 Unspecified osteoarthritis, unspecified site; M54.9 Dorsalgia, unspecified; E78.00 Pure hypercholesterolemia, unspecified; G47.30 Sleep apnea, unspecified; I25.10 Atherosclerotic heart disease of native coronary artery without angina pectoris; K21.9 Gastro-esophageal reflux disease without esophagitis; Z82.49 Family history of ischemic heart disease and other diseases of the circulatory system; Z82.5 Family history of asthma and other chronic lower respiratory diseases; Z90.710 Acquired absence of both cervix and uterus; Z88.7 Allergy status to serum and vaccine; Z88.8 Allergy status to other drugs, medicaments and biological substances; Z68.34 Body mass index [BMI] 34.0-34.9, adult; Z71.6 Tobacco abuse counseling
CPT/HCPCS: 36415; 71045; 80053; 82948; 83036; 83605; 83880; 84145; 84484; 85025; 85610; 85730; 87040; 87070; 93005; 94640; 94760; 96365; 96366; 96375; 96376; 99285; J0696; J1650; J1815; J1956; J2270; J2405; J2920; J2930; J3475; J7030; J7512

== ENCOUNTER 2018-05-29 11:17 | Inpatient (IN) | payer MEDICAID ==
[~2018-05-29 11:17] MED LIST changes: +CLON-514 PO; -CLON1TAB4 PO
[2018-05-29 11:45] LABS: BASOPHILS % (AUTO) 0.3 % (0-1); EOSINOPHILS # (AUTO) 0.6 X10'3 (0-0.9); EOSINOPHILS % (AUTO) 5.1 % (0-6); HEMATOCRIT 38.2 % (35.0-45.0); HEMOGLOBIN 12.4 g/dl (12.0-16.0); LYMPHOCYTES # (AUTO) 3.3 X10'3 (1.1-4.8); LYMPHOCYTES % (AUTO) 28.4 % (21-51); MEAN CORPUSCULAR HEMOGLOBIN 26.7 PG (27.0-31.0); MEAN CORPUSCULAR HGB CONC 32.4 % (33.0-36.5); MEAN CORPUSCULAR VOLUME 82.5 FL (78-98); MEAN PLATELET VOLUME 6.9 FL (7.4-10.4); MONOCYTES # (AUTO) 0.6 X10'3 (0-0.9); MONOCYTES % (AUTO) 5.4 % (2-12); NEUTROPHILS % (AUTO) 60.8 % (42-75); PLATELET COUNT 305 X10'3 (140-440); RED BLOOD COUNT 4.62 X10'6 (4.20-5.60); RED CELL DISTRIBUTION WIDTH 18.2 % (11.5-14.5); WHITE BLOOD COUNT 11.5 X10'3 (4.5-11.0)
[2018-05-29 11:56] LABS: PARTIAL THROMBOPLASTIN TIME 25 SECONDS (22-32); PROTHROMBIN TIME 10.3 SECONDS (9.0-12.0)
[2018-05-29 12:00] LABS: ALANINE AMINOTRANSFERASE 23 U/L (12-78); ALBUMIN 3.4 G/DL (3.4-5.0); ALBUMIN/GLOBULIN RATIO 0.9 (1.1-1.5); ALKALINE PHOSPHATASE 99 IU/L (46-116); ANION GAP 10 (8-16); ASPARTATE AMINO TRANSFERASE 22 U/L (10-37); BILIRUBIN,TOTAL 0.6 MG/DL (0.1-1.0); BLOOD UREA NITROGEN 8 MG/DL (7-18); BUN/CREATININE RATIO 9.4 (6.6-38.0); CALCIUM 9.1 MG/DL (8.5-10.1); CHLORIDE 102 MMOL/L (99-107); CREATININE 0.85 MG/DL (0.40-0.90); GLUCOSE 202 MG/DL (70-104); POTASSIUM 3.7 MMOL/L (3.5-5.1); SODIUM 140 MMOL/L (135-145); TOTAL CARBON DIOXIDE 28.4 MMOL/L (24-32); TOTAL PROTEIN 7.3 G/DL (6.4-8.2); eGFR 68 ML/MIN
[2018-05-29] MEDS ORDERED: nitroGLYCERIN 0.4mg/hour patch TD ONE (12:25)
[2018-05-29] MEDS ORDERED: aspirin 81mg tab.chew PO ONE (12:25)
[2018-05-29] MEDS ORDERED: normal saline 1000ML IV soln IVB ONE (12:35)
[2018-05-29] MEDS ORDERED: morphine 4 MG/ML inj SYRINge IV ONE (12:35)
[2018-05-29] MEDS ORDERED: LIRA0.6P2 SUBCUT (12:57)
[2018-05-29] MEDS ORDERED: HYDROcodone/acetaminophen 10/325mg tab PO PRN ×2 (13:10→13:35)
[2018-05-29] MEDS ORDERED: tizanidine 4mg tablet PO PRN (13:10)
[2018-05-29] MEDS ORDERED: nitroGLYCERIN 0.4mg SUBLingual tab SL PRN (13:10)
[2018-05-29] MEDS ORDERED: dextrose 50%-water 50ml dispensing syringe IV PRN ×2 (13:10)
[2018-05-29] MEDS ORDERED: non-formulary drug (Zolpidem Tartrate* (Ambien*) 1 TAB) PO PRN (13:10)
[2018-05-29] MEDS ORDERED: MESSAGE TO PHARMACY PO ONE (13:10)
[2018-05-29] MEDS ORDERED: non-formulary drug (Albuterol Sulfate (Ventolin Hfa) 2 PUFF) IH PRN (13:10)
[2018-05-29] MEDS ORDERED: dextrose ORAL solution 15 GM/59 ML bottle PO PRN ×2 (13:10)
[2018-05-29] MEDS ORDERED: insulin Lispro (HumaLOG) vial - multi-dose SQ SCH (13:10)
[2018-05-29] MEDS ORDERED: glucagon, human recombinant 1mg kit SUBCUT PRN (13:10)
[2018-05-29] MEDS ORDERED: methylPREDNISolone sod succ/PF 40mg inj. IV STA (13:21)
[2018-05-29] MEDS: furosemide 10 MG/1 ML 10ml inj IV ONE ×2 (13:25→14:13)
[2018-05-29] MEDS ORDERED: CefTRIAXone 2gm/D5W 50ml 50 ML IV ONE (13:25)
[2018-05-29] MEDS ORDERED: azithromycin/NS 500mg/250ml 250 ML IV ONE (13:25)
[2018-05-29] MEDS ORDERED: zolpidem 5mg tablet PO PRN (13:35)
[2018-05-29] MEDS ORDERED: diphenhydrAMINE 50 mg/ml inj IV PRN (13:35)
[2018-05-29] MEDS ORDERED: ondansetron/PF 4mg/2ml inj IV PRN (13:35)
[2018-05-29] MEDS ORDERED: magnesium hydroxide 30ml (MOM) UD suspension PO PRN (13:35)
[2018-05-29] MEDS ORDERED: acetaminophen 325mg tablet PO PRN ×2 (13:35)
[2018-05-29] MEDS ORDERED: bisacodyl 10mg suppository rectal RC PRN (13:35)
[2018-05-29] MEDS ORDERED: HYDROcodone/acetaminophen 5mg/325mg tablet PO PRN (13:35)
[2018-05-29] MEDS ORDERED: diphenhydrAMINE 25mg capsule PO PRN (13:35)
[2018-05-29] MEDS ORDERED: albuterol 2.5 MG/3 ML nebule NEB PRN (13:35)
[2018-05-29] MEDS ORDERED: mag hydrox/Alum hydrox/simeth 30ml oral suspension PO PRN (13:35)
[2018-05-29] MEDS ORDERED: metoclopramide 5 mg/ml inj IV PRN (13:35)
[2018-05-29] MEDS ORDERED: morphine 4 MG/ML inj SYRINge IV PRN ×2 (13:35)
[2018-05-29] MEDS ORDERED: nicotine 21mg patch - 24 hr TD SCH (13:40)
[2018-05-29] MEDS ORDERED: atorvastatin 10mg tablet PO SCH (13:40)
[2018-05-29 14:08] LABS: CLARITY,URINE SLIGHTLY CLOUDY (Clear); COLOR,URINE YELLOW (Yellow); GLUCOSE, URINE NEGATIVE (Neg); KETONES,URINE NEGATIVE (Neg); LEUKOCYTE ESTERASE ,URINE NEGATIVE (Neg); NITRITES, URINE NEGATIVE (Neg); OCCULT BLOOD,URINE NEGATIVE (Neg); PH,URINE 5.5 (4.8-8.0); PROTEIN,URINE NEGATIVE (Neg); URINE AMPHETAMINE SCREEN NEGATIVE (Neg); URINE BARBITUATE SCREEN NEGATIVE (Neg); URINE BENZODIAZEPINES SCREEN NEGATIVE (Neg); URINE CANNABINOID SCREEN NEGATIVE (Neg); URINE COCAINE SCREEN NEGATIVE (Neg); URINE METHADONE SCREEN NEGATIVE (Neg); URINE OPIATE SCREEN POSITIVE (Neg); URINE PHENCYCLIDINE SCREEN NEGATIVE (Neg); UROBILINOGEN,URINE 0.2 E.U/dL (0.2-1.0)
[2018-05-29 14:13] LABS: UA COLLECTION TYPE CLN CATCH MIDSTREAM
[2018-05-29 14:16] LABS: BACTERIA,URINE FEW /HPF (Neg); MUCUS STRANDS NONE SEEN /LPF (Neg); RBC,URINE NONE SEEN /HPF (0-2); SQUAMOUS EPITHELIAL CELL,UR MODERATE /LPF (FEW); WBC,URINE 0-4 /HPF (0-4)
[2018-05-29] MEDS ORDERED: ipratropium 0.5 MG/2.5ML nebule IH SCH (15:00)
[2018-05-29 15:47] LABS: HEMOGLOBIN A1C 8.3 % (4.5-6.2)
[2018-05-29 15:54] LABS: MAGNESIUM 1.6 MG/DL (1.5-2.4)
[2018-05-29 16:18] VITALS: BP 118/74
[2018-05-29] MEDS ORDERED: methylPREDNISolone sod succ 125mg/2ml vial IV SCH (20:00)
[2018-05-29] MEDS ORDERED: furosemide 10 MG/1 ML 10ml inj IV SCH (20:00)
[2018-05-29] MEDS ORDERED: non-formulary drug (Buspirone HCl 1 TAB) PO SCH (20:00)
[2018-05-29] MEDS ORDERED: clonazePAM 1mg tablet PO SCH (20:00)
[2018-05-29] MEDS ORDERED: busPIRone 15mg tablet PO SCH (20:00)
[2018-05-29] MEDS ORDERED: CefTRIAXone/D5W-Rocephin 1gm 50 ML IV SCH (20:00)
[2018-05-29] MEDS ORDERED: docusate sod 100mg capsule PO SCH (20:00)
[2018-05-29] MEDS ORDERED: temazepam 15mg capsule PO PRN (21:00)
[2018-05-29] MEDS ORDERED: gabapentin 400mg capsule PO SCH (21:00)
[2018-05-30] MEDS ORDERED: duloxetine 30mg CAPSULE.DR PO SCH (08:00)
[2018-05-30] MEDS ORDERED: non-formulary drug (Tiotropium Bromide* (Spiriva*) 18 MCG) IH SCH (08:00)
[2018-05-30] MEDS ORDERED: pantoprazole 40mg Tablet.DR PO SCH (08:00)
[2018-05-30] MEDS ORDERED: lamoTRIgine 100mg tablet PO SCH (08:00)
[2018-05-30] MEDS ORDERED: non-formulary drug (Lamotrigine 1 TAB) PO SCH (08:00)
[2018-05-30] MEDS ORDERED: clopidogrel 75mg tablet PO SCH (08:00)
[2018-05-30] MEDS ORDERED: allopurinol 100mg tablet PO SCH (08:00)
[2018-05-30] MEDS ORDERED: aspirin 81mg tablet.DR PO SCH (08:00)
[2018-05-30] MEDS ORDERED: azithromycin 250mg tablet PO SCH (08:00)
[2018-05-30] MEDS ORDERED: lisinopril 10 MG tablet PO SCH (08:00)
[2018-05-30] MEDS ORDERED: non-formulary drug (Aspirin (Aspir 81) 1 TAB) PO SCH (08:00)
== END 2018-05-29 16:18 | disposition left against medical advice (07) | DRG 140 ==
LOC: ER 11:17 → ED HOLD 13:32
PROVIDERS: ADMIT Family Medicine; ATTEND Family Medicine
DX: J44.1 Chronic obstructive pulmonary disease with (acute) exacerbation (principal); I50.33 Acute on chronic diastolic (congestive) heart failure; E11.51 Type 2 diabetes mellitus with diabetic peripheral angiopathy without gangrene; E11.65 Type 2 diabetes mellitus with hyperglycemia; Z99.81 Dependence on supplemental oxygen; I11.0 Hypertensive heart disease with heart failure; F17.210 Nicotine dependence, cigarettes, uncomplicated; G43.909 Migraine, unspecified, not intractable, without status migrainosus; I25.10 Atherosclerotic heart disease of native coronary artery without angina pectoris; E78.00 Pure hypercholesterolemia, unspecified; G47.30 Sleep apnea, unspecified; K21.9 Gastro-esophageal reflux disease without esophagitis; M19.90 Unspecified osteoarthritis, unspecified site; G89.29 Other chronic pain; M54.9 Dorsalgia, unspecified; F32.9 Major depressive disorder, single episode, unspecified; F41.9 Anxiety disorder, unspecified; R09.02 Hypoxemia; Z82.5 Family history of asthma and other chronic lower respiratory diseases; Z79.4 Long term (current) use of insulin; Z82.49 Family history of ischemic heart disease and other diseases of the circulatory system; Z88.7 Allergy status to serum and vaccine; Z88.8 Allergy status to other drugs, medicaments and biological substances; Z95.1 Presence of aortocoronary bypass graft; Z90.710 Acquired absence of both cervix and uterus; Z79.82 Long term (current) use of aspirin; Z79.899 Other long term (current) drug therapy; Z98.61 Coronary angioplasty status
CPT/HCPCS: 36415; 71045; 80053; 80305; 81001; 83036; 83735; 83880; 84484; 85025; 85610; 85730; 93005; 94640; 94760; 96361; 96374; 99285; J0456; J0696; J1940; J2270; J2405; J2920; J7030

== ENCOUNTER 2018-08-26 15:42 | Emergency (ER) | payer MEDICAID ==
[~2018-08-26] VITALS: Ht 167.6 cm; Wt 96.0 kg
[~2018-08-26 15:42] MED LIST changes: +HYDR-4353 PO; -HYDR-565 PO; +LIRA0.6P2 SUBCUT; +METF-438 PO; -METF10004 PO
[2018-08-26] MEDS ORDERED: albuterol 2.5 MG/3 ML nebule CONTNEB PRN (16:00)
[2018-08-26] MEDS ORDERED: prednisone 10mg tablet PO STA (16:00)
[2018-08-26 16:13] LABS: BASOPHILS % (AUTO) 0.4 % (0-1); EOSINOPHILS # (AUTO) 0.7 X10'3 (0-0.9); EOSINOPHILS % (AUTO) 8.1 % (0-6); HEMOGLOBIN 12.5 g/dl (12.0-16.0); LYMPHOCYTES # (AUTO) 2.5 X10'3 (1.1-4.8); LYMPHOCYTES % (AUTO) 27.6 % (21-51); MEAN CORPUSCULAR VOLUME 81.2 FL (78-98); MONOCYTES # (AUTO) 0.6 X10'3 (0-0.9); MONOCYTES % (AUTO) 6.7 % (2-12); NEUTROPHILS # (AUTO) 5.2 X10'3 (1.8-7.7); NEUTROPHILS % (AUTO) 57.2 % (42-75); PLATELET COUNT 334 X10'3 (140-440); RED BLOOD COUNT 4.79 X10'6 (4.20-5.60); RED CELL DISTRIBUTION WIDTH 17.4 % (11.5-14.5)
[2018-08-26 16:25] LABS: PROTHROMBIN TIME 10.2 SECONDS (9.0-12.0)
[2018-08-26 16:26] LABS: PARTIAL THROMBOPLASTIN TIME 29 SECONDS (22-32)
[2018-08-26 16:27] LABS: ALANINE AMINOTRANSFERASE 42 U/L (12-78); ALBUMIN 3.5 G/DL (3.4-5.0); ALBUMIN/GLOBULIN RATIO 0.9 (1.1-1.5); ALKALINE PHOSPHATASE 111 IU/L (46-116); ANION GAP 10 (8-16); ASPARTATE AMINO TRANSFERASE 35 U/L (10-37); BILIRUBIN,TOTAL 0.4 MG/DL (0.1-1.0); BLOOD UREA NITROGEN 9 MG/DL (7-18); BUN/CREATININE RATIO 10.5 (6.6-38.0); CHLORIDE 102 MMOL/L (99-107); CREATININE 0.86 MG/DL (0.40-0.90); GLUCOSE 183 MG/DL (70-104); POTASSIUM 4.2 MMOL/L (3.5-5.1); SODIUM 140 MMOL/L (135-145); TOTAL CARBON DIOXIDE 27.8 MMOL/L (24-32); TOTAL PROTEIN 7.4 G/DL (6.4-8.2); eGFR 67 ML/MIN
[2018-08-26] MEDS ORDERED: PRED20TA PO (17:01)
[2018-08-26 17:10] VITALS: BP 134/78
== END 2018-08-26 17:12 | disposition home or self-care (01) ==
LOC: ER 15:43
DX: J44.9 Chronic obstructive pulmonary disease, unspecified (principal); G43.909 Migraine, unspecified, not intractable, without status migrainosus; I25.10 Atherosclerotic heart disease of native coronary artery without angina pectoris; I11.0 Hypertensive heart disease with heart failure; I50.9 Heart failure, unspecified; E78.00 Pure hypercholesterolemia, unspecified; K21.9 Gastro-esophageal reflux disease without esophagitis; E11.9 Type 2 diabetes mellitus without complications; M19.90 Unspecified osteoarthritis, unspecified site; G89.29 Other chronic pain; F17.200 Nicotine dependence, unspecified, uncomplicated; Z95.5 Presence of coronary angioplasty implant and graft; Z90.710 Acquired absence of both cervix and uterus; Z98.890 Other specified postprocedural states; Z88.7 Allergy status to serum and vaccine; Z88.6 Allergy status to analgesic agent; Z79.82 Long term (current) use of aspirin; Z79.4 Long term (current) use of insulin; Z79.899 Other long term (current) drug therapy
CPT/HCPCS: 36415; 71045; 80053; 84484; 85025; 85610; 85730; 93005; 94644; 94760; 99285; J7512

== ENCOUNTER 2018-10-26 14:20 | Emergency (ER) | payer MEDICAID ==
[~2018-10-26] VITALS: Ht 165.1 cm; Wt 97.3 kg
[~2018-10-26 14:20] MED LIST changes: +ERTU5TAB PO; +INSU100I31 SQ; -LISI10TA4 PO; +MECL12.584 PO; -NITR0.4T51 SL; -PANT40TA4 PO; +PRED10TA23 PO; +SIMV20TA PO; -TIOT18CA7 IH; -TRIA15CR3 TOP
[2018-10-26 15:40] LABS: PARTIAL THROMBOPLASTIN TIME 25 SECONDS (22-32); PROTHROMBIN TIME 9.7 SECONDS (9.0-12.0)
[2018-10-26 15:41] LABS: ALANINE AMINOTRANSFERASE 52 U/L (12-78); ALBUMIN 3.4 G/DL (3.4-5.0); ALBUMIN/GLOBULIN RATIO 0.9 (1.1-1.5); ALKALINE PHOSPHATASE 112 IU/L (46-116); ANION GAP 14 (8-16); ASPARTATE AMINO TRANSFERASE 20 U/L (10-37); BILIRUBIN,TOTAL 0.3 MG/DL (0.1-1.0); BLOOD UREA NITROGEN 14 MG/DL (7-18); BUN/CREATININE RATIO 15.6 (6.6-38.0); CALCIUM 9.4 MG/DL (8.5-10.1); CHLORIDE 98 MMOL/L (99-107); GLUCOSE 359 MG/DL (70-104); SODIUM 135 MMOL/L (135-145); TOTAL CARBON DIOXIDE 22.6 MMOL/L (24-32); TOTAL PROTEIN 7.2 G/DL (6.4-8.2); eGFR 63 ML/MIN
[2018-10-26 15:42] LABS: POTASSIUM 4.9 MMOL/L (3.5-5.1)
[2018-10-26 16:45] LABS: BASOPHILS % (AUTO) 0.2 % (0-1); EOSINOPHILS # (AUTO) 0.3 X10'3 (0-0.9); EOSINOPHILS % (AUTO) 2.2 % (0-6); HEMATOCRIT 41.8 % (35.0-45.0); HEMOGLOBIN 13.1 g/dl (12.0-16.0); LYMPHOCYTES # (AUTO) 2.2 X10'3 (1.1-4.8); LYMPHOCYTES % (AUTO) 16.5 % (21-51); MEAN CORPUSCULAR HEMOGLOBIN 26.2 PG (27.0-31.0); MEAN CORPUSCULAR HGB CONC 31.5 % (33.0-36.5); MEAN CORPUSCULAR VOLUME 83.2 FL (78-98); MEAN PLATELET VOLUME 7.4 FL (7.4-10.4); MONOCYTES # (AUTO) 0.4 X10'3 (0-0.9); MONOCYTES % (AUTO) 2.8 % (2-12); NEUTROPHILS # (AUTO) 10.4 X10'3 (1.8-7.7); NEUTROPHILS % (AUTO) 78.3 % (42-75); PLATELET COUNT 346 X10'3 (140-440); RED BLOOD COUNT 5.02 X10'6 (4.20-5.60); RED CELL DISTRIBUTION WIDTH 17.1 % (11.5-14.5); WHITE BLOOD COUNT 13.3 X10'3 (4.5-11.0)
[2018-10-26] MEDS ORDERED: ipratropium/albuterol 3ml nebule NEB ONE (17:30)
[2018-10-26] MEDS ORDERED: normal saline 1000ML IV soln IVB ONE (17:30)
[2018-10-26] MEDS ORDERED: methylPREDNISolone sod succ 125mg/2ml vial IV ONE (17:30)
[2018-10-26] MEDS ORDERED: acetaminophen 325mg tablet PO ONE (17:30)
[2018-10-26] MEDS ORDERED: LORazepam 2 mg/ml vial IV ONE (17:30)
[2018-10-26 18:14] VITALS: BP 130/92
== END 2018-10-26 18:25 | disposition home or self-care (01) ==
LOC: ER 14:23
DX: R42 Dizziness and giddiness (principal); J44.1 Chronic obstructive pulmonary disease with (acute) exacerbation; G43.909 Migraine, unspecified, not intractable, without status migrainosus; I25.10 Atherosclerotic heart disease of native coronary artery without angina pectoris; I11.0 Hypertensive heart disease with heart failure; I50.9 Heart failure, unspecified; E78.00 Pure hypercholesterolemia, unspecified; K21.9 Gastro-esophageal reflux disease without esophagitis; E11.9 Type 2 diabetes mellitus without complications; M19.90 Unspecified osteoarthritis, unspecified site; G89.29 Other chronic pain; Z95.5 Presence of coronary angioplasty implant and graft; Z76.5 Malingerer [conscious simulation]; Z90.710 Acquired absence of both cervix and uterus; Z98.890 Other specified postprocedural states; Z88.7 Allergy status to serum and vaccine; Z88.6 Allergy status to analgesic agent; Z88.8 Allergy status to other drugs, medicaments and biological substances; Z79.82 Long term (current) use of aspirin; Z79.4 Long term (current) use of insulin; Z79.899 Other long term (current) drug therapy
CPT/HCPCS: 36415; 71045; 80053; 84484; 85025; 85610; 85730; 87502; 87503; 93005; 94640; 94760; 99284; J2060; J2930; J7030

== ENCOUNTER 2018-11-04 20:49 | Emergency (ER) | payer MEDICAID ==
[~2018-11-04] VITALS: Ht 165.1 cm; Wt 98.0 kg
[2018-11-04 20:53] VITALS: BP 147/90
[2018-11-04 21:46] LABS: CLARITY,URINE SLIGHTLY CLOUDY (Clear); COLOR,URINE RED (Yellow); GLUCOSE, URINE >=1000 mg/dl (Neg); KETONES,URINE NEGATIVE (Neg); LEUKOCYTE ESTERASE ,URINE NEGATIVE (Neg); NITRITES, URINE NEGATIVE (Neg); OCCULT BLOOD,URINE LARGE (Neg); PROTEIN,URINE NEGATIVE (Neg); UA COLLECTION TYPE CLN CATCH MIDSTREAM; UROBILINOGEN,URINE 0.2 E.U/dL (0.2-1.0)
[2018-11-04 21:53] LABS: BACTERIA,URINE NONE SEEN /HPF (Neg); MUCUS STRANDS NONE SEEN /LPF (Neg); RBC,URINE 50-100 /HPF (0-2); SQUAMOUS EPITHELIAL CELL,UR FEW /LPF (FEW); WBC,URINE NONE SEEN /HPF (0-4)
[2018-11-04] MEDS ORDERED: HYDROcodone/acetaminophen 10/325mg tab PO ONE (22:35)
== END 2018-11-04 22:47 | disposition home or self-care (01) ==
LOC: ER 20:49
DX: N93.8 Other specified abnormal uterine and vaginal bleeding (principal); I11.0 Hypertensive heart disease with heart failure; I50.9 Heart failure, unspecified; I25.810 Atherosclerosis of coronary artery bypass graft(s) without angina pectoris; G43.909 Migraine, unspecified, not intractable, without status migrainosus; K21.9 Gastro-esophageal reflux disease without esophagitis; Z95.1 Presence of aortocoronary bypass graft; Z88.6 Allergy status to analgesic agent
CPT/HCPCS: 81001; 99284

== ENCOUNTER 2019-03-29 14:14 | Inpatient (IN) | payer MEDICAID ==
[~2019-03-29] VITALS: Ht 165.1 cm; Wt 95.0 kg
[~2019-03-29 14:14] MED LIST changes: -PRED10TA23 PO
[2019-03-29] MEDS ORDERED: nitroGLYCERIN 1gm ointment UD TP ONE (15:10)
[2019-03-29] MEDS ORDERED: ipratropium/albuterol 3ml nebule NEB ONE ×2 (15:40→16:45)
[2019-03-29] MEDS ORDERED: albuterol 2.5 MG/3 ML nebule NEB ONE (15:40)
[2019-03-29] MEDS ORDERED: methylPREDNISolone sod succ 125mg/2ml vial IV ONE (15:40)
[2019-03-29] MEDS ORDERED: morphine 4 MG/ML inj SYRINge IV ONE (16:25)
[2019-03-29 16:34] LABS: BASOPHILS # (AUTO) 0.1 X10'3 (0-0.2); BASOPHILS % (AUTO) 0.4 % (0-1); EOSINOPHILS # (AUTO) 0.1 X10'3 (0-0.9); EOSINOPHILS % (AUTO) 0.5 % (0-6); HEMATOCRIT 39.9 % (35.0-45.0); HEMOGLOBIN 12.8 g/dl (12.0-16.0); LYMPHOCYTES # (AUTO) 2.7 X10'3 (1.1-4.8); LYMPHOCYTES % (AUTO) 20.3 % (21-51); MEAN CORPUSCULAR HEMOGLOBIN 26.6 PG (27.0-31.0); MEAN CORPUSCULAR VOLUME 83.1 FL (78-98); MONOCYTES # (AUTO) 0.3 X10'3 (0-0.9); MONOCYTES % (AUTO) 2.7 % (2-12); NEUTROPHILS # (AUTO) 9.9 X10'3 (1.8-7.7); NEUTROPHILS % (AUTO) 76.1 % (42-75); PLATELET COUNT 424 X10'3 (140-440); RED CELL DISTRIBUTION WIDTH 16.1 % (11.5-14.5); WHITE BLOOD COUNT 13.1 X10'3 (4.5-11.0)
[2019-03-29 16:44] LABS: ALANINE AMINOTRANSFERASE 68 U/L (12-78); ALBUMIN 3.4 G/DL (3.4-5.0); ALBUMIN/GLOBULIN RATIO 0.8 (1.1-1.5); ALKALINE PHOSPHATASE 106 IU/L (46-116); ANION GAP 7 (8-16); ASPARTATE AMINO TRANSFERASE 43 U/L (10-37); BILIRUBIN,TOTAL 0.4 MG/DL (0.1-1.0); BLOOD UREA NITROGEN 11 MG/DL (7-18); BUN/CREATININE RATIO 13.3 (6.6-38.0); CALCIUM 9.4 MG/DL (8.5-10.1); CHLORIDE 100 MMOL/L (99-107); CREATININE 0.83 MG/DL (0.40-0.90); GLUCOSE 207 MG/DL (70-104); POTASSIUM 4.7 MMOL/L (3.5-5.1); SODIUM 135 MMOL/L (135-145); TOTAL CARBON DIOXIDE 27.9 MMOL/L (24-32); TOTAL PROTEIN 7.5 G/DL (6.4-8.2); eGFR 70 ML/MIN
[2019-03-29 16:45] LABS: PARTIAL THROMBOPLASTIN TIME 27 SECONDS (22-32)
[2019-03-29] MEDS ORDERED: acetaminophen 325mg tablet PO PRN ×2 (17:00)
[2019-03-29] MEDS ORDERED: ondansetron/PF 4mg/2ml inj IV PRN (17:00)
[2019-03-29] MEDS ORDERED: HYDROcodone/acetaminophen 5mg/325mg tablet PO PRN (17:00)
[2019-03-29] MEDS: K and/or MAG REPLACEMENT MC SCH (17:00)
[2019-03-29] MEDS ORDERED: magnesium 2GM in 50ml NS 50 ML IV PRN (17:00)
[2019-03-29] MEDS ORDERED: potassium Cl 20 mEq SR tablet PO PRN ×2 (17:00)
[2019-03-29] MEDS ORDERED: mag hydrox/Alum hydrox/simeth 30ml oral suspension PO PRN (17:00)
[2019-03-29] MEDS ORDERED: magnesium Cl slow-release 64mg tablet PO PRN (17:00)
[2019-03-29] MEDS ORDERED: magnesium 4gm in 100ml NS 100 ML IV PRN (17:00)
[2019-03-29] MEDS ORDERED: magnesium hydroxide 30ml (MOM) UD suspension PO PRN (17:00)
[2019-03-29] MEDS ORDERED: potassium CL 10mEq/100ml bag 100 ML IV PRN (17:00)
[2019-03-29] MEDS ORDERED: potassium Cl 40MEQ/NS 500ml 500 ML IV PRN (17:00)
[2019-03-29] MEDS ORDERED: morphine 2 MG/ML inj. syringe IV PRN (17:00)
[2019-03-29] MEDS ORDERED: diphenhydrAMINE 25mg capsule PO PRN (17:00)
[2019-03-29] MEDS ORDERED: PANT40TA4 PO (17:19)
[2019-03-29] MEDS ORDERED: VARE1TAB22 PO (17:19)
[2019-03-29] MEDS ORDERED: IPRA3AMP31 NEB (17:19)
[2019-03-29] MEDS ORDERED: BUDE10.2 INH (17:19)
[2019-03-29] MEDS ORDERED: FLUT16SP20 (17:19)
[2019-03-29] MEDS ORDERED: ATOR40TA72 PO (17:19)
[2019-03-29] MEDS ORDERED: HUM100IN SQ (17:19)
[2019-03-29] MEDS ORDERED: non-formulary drug (Zolpidem Tartrate* (Ambien*) 1 TAB) PO PRN (17:25)
[2019-03-29] MEDS ORDERED: HYDROcodone/acetaminophen 10/325mg tab PO PRN (17:25)
[2019-03-29] MEDS ORDERED: dextrose ORAL solution 15 GM/59 ML bottle PO PRN ×2 (17:30)
[2019-03-29] MEDS ORDERED: glucagon, human recombinant 1mg kit SUBCUT PRN (17:30)
[2019-03-29] MEDS ORDERED: dextrose 50%-water 50ml dispensing syringe IV PRN ×2 (17:30)
[2019-03-29] MEDS ORDERED: MESSAGE TO PHARMACY PO ONE (17:30)
[2019-03-29] MEDS: morphine 2 MG/ML inj. syringe IV PRN ×2 (17:54→22:13)
[2019-03-29] MEDS ORDERED: albuterol 2.5 MG/3 ML nebule NEB PRN (17:55)
[2019-03-29] MEDS: levoFLOXACIN-Levaquin 750MG/D5 150 ML IV SCH (18:17)
[2019-03-29] MEDS: normal saline 1000ml 1,000 ML IV SCH (18:26)
--- NOTE | 2019-03-29 18:37 | NUR ---
PT CONSULTED WITH HOSPITALIST AND REPORTED THAT SHE DOES NOT WANT TO BE INTUBATED.
[2019-03-29] MEDS: budesonide 0.5mg/2ml UD nebule IH SCH (19:08)
[2019-03-29] MEDS: ipratropium/albuterol 3ml nebule NEB SCH ×2 (19:08→23:38)
[2019-03-29] MEDS: albuterol 2.5 MG/3 ML nebule NEB SCH (19:11)
[2019-03-29] MEDS: HYDROcodone/acetaminophen 10/325mg tab PO PRN (19:44)
[2019-03-29 20:15] VITALS: BP 150/99
--- NOTE | 2019-03-29 20:15 | NUR ---
Pt arrived to room 3012C from the ER via gurney and was able to ambulate to bed with a steady gait. Pt oriented to room, call light, plan of care and all questions answered. Tele monitor was put on. Will continue to monitor.
[2019-03-29] MEDS ORDERED: [UNRECOGNIZED DRUG - OTHER] SQ SCH (21:00)
[2019-03-29] MEDS ORDERED: VICTOZA SQ SCH (21:00)
[2019-03-29] MEDS ORDERED: insulin glargine (Lantus) pen - multi-dose SQ SCH (21:00)
[2019-03-29] MEDS ORDERED: temazepam 15mg capsule PO PRN (21:00)
[2019-03-29] MEDS: gabapentin 400mg capsule PO SCH (21:33)
[2019-03-29] MEDS: methylPREDNISolone sod succ 125mg/2ml vial IV SCH (21:33)
[2019-03-29] MEDS: clonazePAM 1mg tablet PO SCH (21:33)
[2019-03-29] MEDS: busPIRone 15mg tablet PO SCH (21:34)
[2019-03-29] MEDS: varenicline tartrate 0.5mg tablet PO SCH (22:13)
[2019-03-29] MEDS: insulin Lispro (HumaLOG) vial - multi-dose SQ SCH (22:23)
[2019-03-29 23:00] VITALS: BP 141/79
[2019-03-30] MEDS: HYDROcodone/acetaminophen 10/325mg tab PO PRN ×3 (00:01→10:13)
[2019-03-30] MEDS: methylPREDNISolone sod succ 125mg/2ml vial IV SCH ×2 (02:39→07:34)
[2019-03-30] MEDS: morphine 2 MG/ML inj. syringe IV PRN (02:40)
[2019-03-30 03:00] VITALS: BP 129/79
[2019-03-30 03:02] LABS: BASOPHILS % (AUTO) 0.4 % (0-1); EOSINOPHILS % (AUTO) 0 % (0-6); HEMATOCRIT 38.2 % (35.0-45.0); HEMOGLOBIN 12.3 g/dl (12.0-16.0); LYMPHOCYTES % (AUTO) 9.8 % (21-51); MEAN CORPUSCULAR HEMOGLOBIN 26.8 PG (27.0-31.0); MEAN CORPUSCULAR HGB CONC 32.3 g/dL (33.0-36.5); MEAN PLATELET VOLUME 6.9 FL (7.4-10.4); MONOCYTES # (AUTO) 0.1 X10'3 (0-0.9); MONOCYTES % (AUTO) 0.8 % (2-12); NEUTROPHILS # (AUTO) 9.4 X10'3 (1.8-7.7); PLATELET COUNT 356 X10'3 (140-440); RED CELL DISTRIBUTION WIDTH 16.2 % (11.5-14.5); WHITE BLOOD COUNT 10.6 X10'3 (4.5-11.0)
[2019-03-30 03:16] LABS: ALANINE AMINOTRANSFERASE 58 U/L (12-78); ALBUMIN 3.2 G/DL (3.4-5.0); ALBUMIN/GLOBULIN RATIO 0.8 (1.1-1.5); ALKALINE PHOSPHATASE 101 IU/L (46-116); ANION GAP 10 (8-16); ASPARTATE AMINO TRANSFERASE 23 U/L (10-37); BILIRUBIN,TOTAL 0.3 MG/DL (0.1-1.0); BLOOD UREA NITROGEN 19 MG/DL (7-18); BUN/CREATININE RATIO 21.6 (6.6-38.0); CHLORIDE 101 MMOL/L (99-107); CREATININE 0.88 MG/DL (0.40-0.90); GLUCOSE 253 MG/DL (70-104); POTASSIUM 4.5 MMOL/L (3.5-5.1); SODIUM 136 MMOL/L (135-145); TOTAL CARBON DIOXIDE 24.7 MMOL/L (24-32); TOTAL PROTEIN 7.2 G/DL (6.4-8.2); eGFR 65 ML/MIN
[2019-03-30 03:23] LABS: CHOL/HDL RATIO 3.7 (0.00-4.99); CHOLESTEROL 97 MG/DL (0-200); HDL CHOLESTEROL 26 MG/DL (35-60); LDL CHOLESTEROL 56 MG/DL (50-100); PHOSPHORUS 4.8 MG/DL (2.3-4.5); TRIGLYCERIDES 70 MG/DL (20-135)
[2019-03-30] MEDS: ipratropium/albuterol 3ml nebule NEB SCH ×3 (03:33→11:20)
[2019-03-30] MEDS: albuterol 2.5 MG/3 ML nebule NEB SCH ×2 (03:33→08:00)
--- NOTE | 2019-03-30 05:53 | NUR ---
Orientee documentation: I have reviewed and agree with all interventions, assessments performed and documented by Cecilia STAUFFER. Orientee Medication Administration: For this medication-pass time frame, all medication were reviewed, dispensed, administered and documented per hospital policy by Cecilia STAUFFER.
[2019-03-30 06:00] VITALS: BP_SYST 135; BP_SYST 99; BP_DIAS 58; BP_DIAS 87
--- NOTE | 2019-03-30 06:11 | NUR ---
Problems reprioritized. Patient report given, questions answered & plan of care reviewed with Katia STAUFFER & Kris STAUFFER.
--- NOTE | 2019-03-30 06:41 | NUR ---
Patient in room PCU 3012. I have received report from Che STAUFFER and had the opportunity to ask questions and assume patient care. Pt resting in no apparent distress, will continue to monitor.
[2019-03-30] MEDS: budesonide 0.5mg/2ml UD nebule IH SCH (07:23)
[2019-03-30] MEDS: clonazePAM 1mg tablet PO SCH (07:30)
[2019-03-30] MEDS: varenicline tartrate 0.5mg tablet PO SCH (07:30)
[2019-03-30] MEDS: busPIRone 15mg tablet PO SCH (07:31)
[2019-03-30] MEDS: heparin, porcine 5000 units/ml vial SQ SCH ×2 (07:36)
[2019-03-30] MEDS: levoFLOXACIN-Levaquin 750MG/D5 150 ML IV SCH (07:37)
[2019-03-30] MEDS: gabapentin 400mg capsule PO SCH (07:39)
[2019-03-30] MEDS: normal saline 1000ml 1,000 ML IV SCH (07:44)
[2019-03-30] MEDS ORDERED: duloxetine 30mg CAPSULE.DR PO SCH (08:00)
[2019-03-30] MEDS ORDERED: clopidogrel 75mg tablet PO SCH (08:00)
[2019-03-30] MEDS ORDERED: non-formulary drug (Simvastatin (Zocor) 1 TAB) PO SCH (08:00)
[2019-03-30] MEDS ORDERED: pantoprazole 40mg Tablet.DR PO SCH (08:00)
[2019-03-30] MEDS ORDERED: aspirin 81mg tablet.DR PO SCH (08:00)
[2019-03-30] MEDS ORDERED: lamoTRIgine 100mg tablet PO SCH (08:00)
[2019-03-30] MEDS ORDERED: ERTUGLIFLOZIN PO SCH (08:00)
[2019-03-30] MEDS ORDERED: allopurinol 100mg tablet PO SCH (08:00)
[2019-03-30] MEDS: K and/or MAG REPLACEMENT MC SCH (08:00)
[2019-03-30] MEDS: insulin Lispro (HumaLOG) vial - multi-dose SQ SCH (08:36)
[2019-03-30] MEDS ORDERED: PRED10TA23 PO (10:30)
[2019-03-30] MEDS ORDERED: LEVO500T89 PO (10:30)
[2019-03-30] MEDS ORDERED: morphine 2 MG/ML inj. syringe IV ONE (10:40)
[2019-03-30] MEDS ORDERED: METF-950 PO (10:45)
[2019-03-30] MEDS ORDERED: SAXA5TAB PO (10:45)
[2019-03-30] MEDS ORDERED: LIRA0.6P2 SUBCUT (10:45)
[2019-03-30 11:00] VITALS: BP 129/79
--- NOTE | 2019-03-30 15:19 | NUR ---
Reviewed discharge instruction and pt education with pt. Called in new prescriptions to the [facility] on [address] ([facility]) in [place]. IV discontinued with canula intact. Tele monitor removed. Pt has been stable on room air throughout night and entire day shift. Pt transported to [facility] via wheelchair. Pt alert and oriented X 4 and vital signs within normal limits. Pt picked up by [facility].
[2019-03-30] MEDS ORDERED: atorvastatin 20mg tablet PO SCH (21:00)
== END 2019-03-30 13:35 | disposition home or self-care (01) | DRG 140 ==
LOC: ER 14:14 → PCU 3S 20:06 → CMPBEDREQ 20:34
PROVIDERS: ADMIT Family Medicine; ATTEND Family Medicine
DX: J44.0 Chronic obstructive pulmonary disease with (acute) lower respiratory infection (principal); J96.90 Respiratory failure, unspecified, unspecified whether with hypoxia or hypercapnia; J44.1 Chronic obstructive pulmonary disease with (acute) exacerbation; I11.0 Hypertensive heart disease with heart failure; E11.65 Type 2 diabetes mellitus with hyperglycemia; I50.9 Heart failure, unspecified; Z99.81 Dependence on supplemental oxygen; D72.829 Elevated white blood cell count, unspecified; E66.01 Morbid (severe) obesity due to excess calories; E78.00 Pure hypercholesterolemia, unspecified; E78.5 Hyperlipidemia, unspecified; F32.9 Major depressive disorder, single episode, unspecified; J20.9 Acute bronchitis, unspecified; I25.10 Atherosclerotic heart disease of native coronary artery without angina pectoris; G43.909 Migraine, unspecified, not intractable, without status migrainosus; M19.90 Unspecified osteoarthritis, unspecified site; M54.9 Dorsalgia, unspecified; F41.9 Anxiety disorder, unspecified; F17.210 Nicotine dependence, cigarettes, uncomplicated; G47.30 Sleep apnea, unspecified; G89.4 Chronic pain syndrome; K21.9 Gastro-esophageal reflux disease without esophagitis; M10.9 Gout, unspecified; Z68.34 Body mass index [BMI] 34.0-34.9, adult; Z82.49 Family history of ischemic heart disease and other diseases of the circulatory system; Z82.5 Family history of asthma and other chronic lower respiratory diseases; Z90.710 Acquired absence of both cervix and uterus; Z88.7 Allergy status to serum and vaccine; Z88.8 Allergy status to other drugs, medicaments and biological substances; Z71.6 Tobacco abuse counseling
CPT/HCPCS: 36415; 71045; 80053; 80061; 82948; 83036; 83735; 84100; 84484; 85025; 85610; 85730; 87070; 93005; 94640; 94760; 96374; 96375; 99285; G0378; J1644; J1815; J1956; J2270; J2930; J7030; J7626

== ENCOUNTER 2019-05-22 22:39 | Emergency (ER) | payer MEDICAID ==
[~2019-05-22] VITALS: Ht 165.1 cm; Wt 100.0 kg
[~2019-05-22 22:39] MED LIST changes: +ATOR40TA72 PO; +BUDE10.2 INH; +FLUT16SP20; +HUM100IN SQ; -INSU100I31 SQ; -INSU100V9 SQ; +IPRA3AMP31 NEB; -IPRA3AMP9 IH; -MECL12.584 PO; -METF-438 PO; +PANT40TA4 PO; +SAXA5TAB PO; -SIMV20TA PO; -TIZA-248 PO; +VARE1TAB22 PO
[2019-05-22 23:10] VITALS: BP 137/77
[2019-05-23] MEDS ORDERED: HYDROcodone/acetaminophen 5mg/325mg tablet PO ONE (02:45)
== END 2019-05-23 04:32 | disposition home or self-care (01) ==
LOC: ER 22:40
DX: S60.212A Contusion of left wrist, initial encounter (principal); S60.211A Contusion of right wrist, initial encounter; S80.02XA Contusion of left knee, initial encounter; S80.01XA Contusion of right knee, initial encounter; G89.29 Other chronic pain; G43.909 Migraine, unspecified, not intractable, without status migrainosus; I25.10 Atherosclerotic heart disease of native coronary artery without angina pectoris; I11.0 Hypertensive heart disease with heart failure; I50.9 Heart failure, unspecified; E78.00 Pure hypercholesterolemia, unspecified; J44.9 Chronic obstructive pulmonary disease, unspecified; G47.30 Sleep apnea, unspecified; E11.9 Type 2 diabetes mellitus without complications; F41.9 Anxiety disorder, unspecified; F32.9 Major depressive disorder, single episode, unspecified; Z98.61 Coronary angioplasty status; Z90.710 Acquired absence of both cervix and uterus; Z98.890 Other specified postprocedural states; Z88.7 Allergy status to serum and vaccine; Z88.6 Allergy status to analgesic agent; Z88.8 Allergy status to other drugs, medicaments and biological substances; Z79.82 Long term (current) use of aspirin; Z79.4 Long term (current) use of insulin; Z79.899 Other long term (current) drug therapy; W18.39XA Other fall on same level, initial encounter; Y93.89 Activity, other specified; Y92.89 Other specified places as the place of occurrence of the external cause; Y99.8 Other external cause status
CPT/HCPCS: 73090; 73110; 73564; 99283

== ENCOUNTER 2019-09-10 17:51 | Emergency (ER) | payer MEDICAID ==
[~2019-09-10] VITALS: Ht 165.1 cm; Wt 97.0 kg
[~2019-09-10 17:51] MED LIST changes: -LAMO200T PO; +LAMO200T10 PO
[2019-09-10 18:20] LABS: BASOPHILS % (AUTO) 0.5 % (0-1); EOSINOPHILS # (AUTO) 0.3 X10'3 (0-0.9); EOSINOPHILS % (AUTO) 3.3 % (0-6); HEMATOCRIT 38.7 % (35.0-45.0); HEMOGLOBIN 12.4 g/dl (12.0-16.0); LYMPHOCYTES # (AUTO) 2.9 X10'3 (1.1-4.8); LYMPHOCYTES % (AUTO) 28.8 % (21-51); MEAN CORPUSCULAR HEMOGLOBIN 26.7 PG (27.0-31.0); MEAN CORPUSCULAR VOLUME 83.5 FL (78-98); MEAN PLATELET VOLUME 6.9 FL (7.4-10.4); MONOCYTES # (AUTO) 0.6 X10'3 (0-0.9); NEUTROPHILS # (AUTO) 6.3 X10'3 (1.8-7.7); NEUTROPHILS % (AUTO) 61.4 % (42-75); PLATELET COUNT 344 X10'3 (140-440); RED BLOOD COUNT 4.64 X10'6 (4.20-5.60); WHITE BLOOD COUNT 10.2 X10'3 (4.5-11.0)
[2019-09-10 18:30] LABS: ALANINE AMINOTRANSFERASE 16 U/L (12-78); ALBUMIN 3.5 G/DL (3.4-5.0); ALBUMIN/GLOBULIN RATIO 0.8 (1.1-1.5); ALKALINE PHOSPHATASE 119 IU/L (46-116); ANION GAP 8 (8-16); ASPARTATE AMINO TRANSFERASE 24 U/L (10-37); BILIRUBIN,TOTAL 0.2 MG/DL (0.1-1.0); BLOOD UREA NITROGEN 12 MG/DL (7-18); BUN/CREATININE RATIO 12.5 (6.6-38.0); CALCIUM 9.1 MG/DL (8.5-10.1); CHLORIDE 100 MMOL/L (99-107); CREATININE 0.96 MG/DL (0.40-0.90); GLUCOSE 232 MG/DL (70-104); SODIUM 137 MMOL/L (135-145); TOTAL CARBON DIOXIDE 28.7 MMOL/L (24-32); TOTAL PROTEIN 7.8 G/DL (6.4-8.2); eGFR 59 ML/MIN
[2019-09-10] MEDS ORDERED: albuterol 2.5 MG/3 ML nebule CONTNEB PRN (19:20)
[2019-09-10] MEDS ORDERED: predniSONE 20 mg tablet PO ONE (19:20)
[2019-09-10] MEDS ORDERED: morphine 4 MG/ML inj SYRINge IV ONE ×2 (19:20→21:30)
--- NOTE | 2019-09-10 20:58 | NUR ---
PT REPORTS "FEELS A LOT BETTER" AND "SHARP PAIN IN CHEST IS GONE" AFTER BREATHING TREATMENT
[2019-09-10] MEDS ORDERED: HYDR-4383 PO (21:35)
[2019-09-10 23:24] VITALS: BP 124/84
== END 2019-09-10 23:28 | disposition home or self-care (01) ==
LOC: ER 17:52
DX: J44.1 Chronic obstructive pulmonary disease with (acute) exacerbation (principal); G43.909 Migraine, unspecified, not intractable, without status migrainosus; I25.10 Atherosclerotic heart disease of native coronary artery without angina pectoris; I11.0 Hypertensive heart disease with heart failure; I50.9 Heart failure, unspecified; E78.00 Pure hypercholesterolemia, unspecified; K21.9 Gastro-esophageal reflux disease without esophagitis; E11.9 Type 2 diabetes mellitus without complications; M19.90 Unspecified osteoarthritis, unspecified site; G89.29 Other chronic pain; Z95.5 Presence of coronary angioplasty implant and graft; Z90.710 Acquired absence of both cervix and uterus; Z98.890 Other specified postprocedural states; Z88.7 Allergy status to serum and vaccine; Z88.6 Allergy status to analgesic agent; Z79.82 Long term (current) use of aspirin; Z79.899 Other long term (current) drug therapy; Z99.81 Dependence on supplemental oxygen
CPT/HCPCS: 36415; 71045; 80053; 84484; 85025; 93005; 94644; 94760; 96374; 96376; 99285; J2270; J7512; 94640

== ENCOUNTER 2019-09-16 11:04 | Emergency (ER) | payer MEDICAID ==
[~2019-09-16] VITALS: Ht 165.1 cm; Wt 99.5 kg
[~2019-09-16 11:04] MED LIST changes: +HYDR-4383 PO
[2019-09-16 12:04] LABS: BASOPHILS % (AUTO) 0.4 % (0-1); EOSINOPHILS # (AUTO) 0.1 X10'3 (0-0.9); EOSINOPHILS % (AUTO) 1.2 % (0-6); HEMATOCRIT 38.7 % (35.0-45.0); HEMOGLOBIN 12.5 g/dl (12.0-16.0); LYMPHOCYTES # (AUTO) 2.3 X10'3 (1.1-4.8); LYMPHOCYTES % (AUTO) 23.7 % (21-51); MEAN CORPUSCULAR HEMOGLOBIN 27.1 PG (27.0-31.0); MEAN CORPUSCULAR HGB CONC 32.2 g/dL (33.0-36.5); MEAN CORPUSCULAR VOLUME 83.9 FL (78-98); MEAN PLATELET VOLUME 6.9 FL (7.4-10.4); MONOCYTES # (AUTO) 0.5 X10'3 (0-0.9); NEUTROPHILS # (AUTO) 6.7 X10'3 (1.8-7.7); NEUTROPHILS % (AUTO) 69.7 % (42-75); PLATELET COUNT 307 X10'3 (140-440); RED BLOOD COUNT 4.61 X10'6 (4.20-5.60); WHITE BLOOD COUNT 9.7 X10'3 (4.5-11.0)
[2019-09-16 12:18] LABS: ALANINE AMINOTRANSFERASE 31 U/L (12-78); ALBUMIN 3.3 G/DL (3.4-5.0); ALBUMIN/GLOBULIN RATIO 0.8 (1.1-1.5); ALKALINE PHOSPHATASE 99 IU/L (46-116); ANION GAP 9 (8-16); ASPARTATE AMINO TRANSFERASE 22 U/L (10-37); BILIRUBIN,TOTAL 0.3 MG/DL (0.1-1.0); BLOOD UREA NITROGEN 12 MG/DL (7-18); BUN/CREATININE RATIO 17.6 (6.6-38.0); CALCIUM 8.5 MG/DL (8.5-10.1); CHLORIDE 106 MMOL/L (99-107); CREATININE 0.68 MG/DL (0.40-0.90); GLUCOSE 160 MG/DL (70-104); LIPASE 80 U/L (73-393); POTASSIUM 3.7 MMOL/L (3.5-5.1); SODIUM 143 MMOL/L (135-145); TOTAL CARBON DIOXIDE 27.6 MMOL/L (24-32); TOTAL PROTEIN 7.2 G/DL (6.4-8.2); eGFR 87 ML/MIN
[2019-09-16 12:49] LABS: CLARITY,URINE CLEAR (Clear); COLOR,URINE STRAW (Yellow); GLUCOSE, URINE >=1000 mg/dl (Neg); KETONES,URINE NEGATIVE (Neg); LEUKOCYTE ESTERASE ,URINE NEGATIVE (Neg); NITRITES, URINE NEGATIVE (Neg); OCCULT BLOOD,URINE NEGATIVE (Neg); PROTEIN,URINE NEGATIVE (Neg); UA COLLECTION TYPE CLN CATCH MIDSTREAM; UROBILINOGEN,URINE 0.2 E.U/dL (0.2-1.0)
[2019-09-16 12:54] LABS: BACTERIA,URINE 1+ /HPF (Neg); MUCUS STRANDS NONE SEEN /LPF (Neg); RBC,URINE NONE SEEN /HPF (0-2); SQUAMOUS EPITHELIAL CELL,UR FEW /LPF (FEW); WBC,URINE 0-4 /HPF (0-4)
[2019-09-16] MEDS ORDERED: ipratropium/albuterol 3ml nebule NEB ONE (13:00)
[2019-09-16] MEDS ORDERED: morphine 4 MG/ML inj SYRINge IV ONE ×2 (13:00→13:40)
[2019-09-16] MEDS ORDERED: ondansetron/PF 4mg/2ml inj IV ONE ×2 (13:00→13:40)
[2019-09-16] MEDS ORDERED: methylPREDNISolone sod succ 125mg/2ml vial IV ONE (13:00)
[2019-09-16 14:21] VITALS: BP 130/78
== END 2019-09-16 14:23 | disposition home or self-care (01) ==
LOC: ER 11:05
DX: M25.552 Pain in left hip (principal); M25.551 Pain in right hip; R06.02 Shortness of breath; G43.909 Migraine, unspecified, not intractable, without status migrainosus; I25.10 Atherosclerotic heart disease of native coronary artery without angina pectoris; E78.00 Pure hypercholesterolemia, unspecified; J44.9 Chronic obstructive pulmonary disease, unspecified; K21.9 Gastro-esophageal reflux disease without esophagitis; E11.9 Type 2 diabetes mellitus without complications; M19.90 Unspecified osteoarthritis, unspecified site; G89.29 Other chronic pain; I11.0 Hypertensive heart disease with heart failure; I50.9 Heart failure, unspecified; F17.210 Nicotine dependence, cigarettes, uncomplicated; Z95.5 Presence of coronary angioplasty implant and graft; Z90.710 Acquired absence of both cervix and uterus; Z98.890 Other specified postprocedural states; Z88.7 Allergy status to serum and vaccine; Z88.6 Allergy status to analgesic agent; Z79.82 Long term (current) use of aspirin; Z79.899 Other long term (current) drug therapy; Z99.81 Dependence on supplemental oxygen
CPT/HCPCS: 36415; 71045; 80053; 81001; 83690; 84484; 85025; 93005; 94640; 94760; 96374; 96375; 96376; 99284; J2270; J2405; J2930

== ENCOUNTER 2019-09-24 19:14 | Emergency (ER) | payer MEDICAID ==
[~2019-09-24] VITALS: Ht 195.6 cm; Wt 99.0 kg
[2019-09-24] MEDS ORDERED: methylPREDNISolone sod succ 125mg/2ml vial IV ONE (19:45)
[2019-09-24] MEDS ORDERED: morphine 4 MG/ML inj SYRINge IV ONE (19:45)
[2019-09-24] MEDS ORDERED: furosemide 40mg/4ml inj IV ONE (19:45)
[2019-09-24] MEDS ORDERED: ondansetron/PF 4mg/2ml inj IV ONE (19:45)
[2019-09-24] MEDS ORDERED: ipratropium/albuterol 3ml nebule NEB ONE (19:45)
[2019-09-24 19:55] LABS: BASOPHILS % (AUTO) 0.4 % (0-1); EOSINOPHILS # (AUTO) 0.2 X10'3 (0-0.9); EOSINOPHILS % (AUTO) 2.6 % (0-6); HEMATOCRIT 35.7 % (35.0-45.0); HEMOGLOBIN 11.6 g/dl (12.0-16.0); LYMPHOCYTES # (AUTO) 1.8 X10'3 (1.1-4.8); LYMPHOCYTES % (AUTO) 20.5 % (21-51); MEAN CORPUSCULAR HEMOGLOBIN 27.6 PG (27.0-31.0); MEAN CORPUSCULAR HGB CONC 32.5 g/dL (33.0-36.5); MEAN CORPUSCULAR VOLUME 84.9 FL (78-98); MONOCYTES # (AUTO) 0.7 X10'3 (0-0.9); MONOCYTES % (AUTO) 7.8 % (2-12); NEUTROPHILS # (AUTO) 6.1 X10'3 (1.8-7.7); NEUTROPHILS % (AUTO) 68.7 % (42-75); PLATELET COUNT 261 X10'3 (140-440); RED BLOOD COUNT 4.21 X10'6 (4.20-5.60); RED CELL DISTRIBUTION WIDTH 18.1 % (11.5-14.5); WHITE BLOOD COUNT 8.8 X10'3 (4.5-11.0)
[2019-09-24 20:03] LABS: ALANINE AMINOTRANSFERASE 26 U/L (12-78); ALBUMIN 2.8 G/DL (3.4-5.0); ALBUMIN/GLOBULIN RATIO 0.8 (1.1-1.5); ALKALINE PHOSPHATASE 100 IU/L (46-116); ANION GAP 9 (8-16); ASPARTATE AMINO TRANSFERASE 13 U/L (10-37); BILIRUBIN,TOTAL 0.2 MG/DL (0.1-1.0); BLOOD UREA NITROGEN 11 MG/DL (7-18); BUN/CREATININE RATIO 13.6 (6.6-38.0); CALCIUM 8.4 MG/DL (8.5-10.1); CHLORIDE 105 MMOL/L (99-107); CREATININE 0.81 MG/DL (0.40-0.90); GLUCOSE 147 MG/DL (70-104); LIPASE < 50 U/L (73-393); POTASSIUM 3.6 MMOL/L (3.5-5.1); SODIUM 143 MMOL/L (135-145); TOTAL CARBON DIOXIDE 29.3 MMOL/L (24-32); TOTAL PROTEIN 6.4 G/DL (6.4-8.2); eGFR 71 ML/MIN
[2019-09-24 20:22] LABS: PARTIAL THROMBOPLASTIN TIME 26 SECONDS (22-32)
[2019-09-24] MEDS ORDERED: fentaNYL/PF 50MCG/1 ML 2ML syringe IV ONE (20:40)
[2019-09-24] MEDS ORDERED: PRED20TA PO (20:41)
[2019-09-24 21:25] VITALS: BP 131/81
== END 2019-09-24 21:33 | disposition home or self-care (01) ==
LOC: ER 19:15
DX: J44.1 Chronic obstructive pulmonary disease with (acute) exacerbation (principal); R10.11 Right upper quadrant pain; R10.12 Left upper quadrant pain; G43.909 Migraine, unspecified, not intractable, without status migrainosus; I25.10 Atherosclerotic heart disease of native coronary artery without angina pectoris; I11.0 Hypertensive heart disease with heart failure; I50.9 Heart failure, unspecified; E78.00 Pure hypercholesterolemia, unspecified; G47.30 Sleep apnea, unspecified; K21.9 Gastro-esophageal reflux disease without esophagitis; E11.9 Type 2 diabetes mellitus without complications; M19.90 Unspecified osteoarthritis, unspecified site; G89.29 Other chronic pain; F41.9 Anxiety disorder, unspecified; Z90.710 Acquired absence of both cervix and uterus; Z98.61 Coronary angioplasty status; Z88.7 Allergy status to serum and vaccine; Z88.6 Allergy status to analgesic agent; Z79.82 Long term (current) use of aspirin; Z79.899 Other long term (current) drug therapy
CPT/HCPCS: 36415; 71045; 74176; 80053; 83605; 83690; 83880; 84484; 85025; 85610; 85730; 87040; 93005; 94640; 96374; 96375; 99284; J1940; J2270; J2405; J2930; J3010; 94760

== ENCOUNTER 2019-10-03 10:57 | Inpatient (IN) | payer MEDICAID ==
[~2019-10-03] VITALS: Ht 165.1 cm; Wt 102.3 kg
[2019-10-03] MEDS ORDERED: dexamethasone sod phosphate 10mg/ml inj IV STA (11:23)
[2019-10-03] MEDS ORDERED: magnesium 2GM in 50ml NS 50 ML IV ONE (11:25)
[2019-10-03] MEDS ORDERED: albuterol 2.5 MG/3 ML nebule CONTNEB PRN (11:25)
[2019-10-03] MEDS ORDERED: ipratropium 0.5 MG/2.5ML nebule IH ONE (11:25)
--- NOTE | 2019-10-03 11:39 | NUR ---
PT WAS BROUGHT IN BY EMS BY PREET R/T BEING SHORT OF BREATH
[2019-10-03 11:44] LABS: BASOPHILS % (AUTO) 0.1 % (0-1); EOSINOPHILS % (AUTO) 0.1 % (0-6); HEMATOCRIT 36.5 % (35.0-45.0); HEMOGLOBIN 11.8 g/dl (12.0-16.0); LYMPHOCYTES # (AUTO) 0.8 X10'3 (1.1-4.8); LYMPHOCYTES % (AUTO) 6.9 % (21-51); MEAN CORPUSCULAR HEMOGLOBIN 27.2 PG (27.0-31.0); MEAN CORPUSCULAR HGB CONC 32.3 g/dL (33.0-36.5); MEAN CORPUSCULAR VOLUME 84.1 FL (78-98); MEAN PLATELET VOLUME 6.6 FL (7.4-10.4); MONOCYTES # (AUTO) 0.3 X10'3 (0-0.9); MONOCYTES % (AUTO) 2.9 % (2-12); NEUTROPHILS # (AUTO) 10.9 X10'3 (1.8-7.7); PLATELET COUNT 327 X10'3 (140-440); RED BLOOD COUNT 4.35 X10'6 (4.20-5.60); RED CELL DISTRIBUTION WIDTH 18.1 % (11.5-14.5); WHITE BLOOD COUNT 12.1 X10'3 (4.5-11.0)
[2019-10-03 11:46] LABS: CLARITY,URINE SLIGHTLY CLOUDY (Clear); COLOR,URINE STRAW (Yellow); GLUCOSE, URINE >=1000 mg/dl (Neg); KETONES,URINE NEGATIVE (Neg); LEUKOCYTE ESTERASE ,URINE NEGATIVE (Neg); NITRITES, URINE NEGATIVE (Neg); OCCULT BLOOD,URINE NEGATIVE (Neg); PH,URINE 5.5 (4.8-8.0); PROTEIN,URINE NEGATIVE (Neg); UROBILINOGEN,URINE 0.2 E.U/dL (0.2-1.0)
[2019-10-03 11:56] LABS: UA COLLECTION TYPE CLN CATCH MIDSTREAM
[2019-10-03 11:57] LABS: PARTIAL THROMBOPLASTIN TIME 22 SECONDS (22-32)
[2019-10-03] MEDS ORDERED: CefTRIAXone inj 1,000 MG in normal saline 50ml IV soln 50 ML IV ONE (12:05)
[2019-10-03 12:07] LABS: ALANINE AMINOTRANSFERASE 73 U/L (12-78); ALBUMIN 3.2 G/DL (3.4-5.0); ALBUMIN/GLOBULIN RATIO 0.9 (1.1-1.5); ALKALINE PHOSPHATASE 97 IU/L (46-116); ANION GAP 10 (8-16); ASPARTATE AMINO TRANSFERASE 47 U/L (10-37); BILIRUBIN,TOTAL 0.5 MG/DL (0.1-1.0); BLOOD UREA NITROGEN 16 MG/DL (7-18); BUN/CREATININE RATIO 17.6 (6.6-38.0); CALCIUM 8.8 MG/DL (8.5-10.1); CHLORIDE 103 MMOL/L (99-107); CREATININE 0.91 MG/DL (0.40-0.90); GLUCOSE 255 MG/DL (70-104); POTASSIUM 4.1 MMOL/L (3.5-5.1); SODIUM 141 MMOL/L (135-145); TOTAL CARBON DIOXIDE 27.6 MMOL/L (24-32); TOTAL PROTEIN 6.8 G/DL (6.4-8.2); eGFR 62 ML/MIN
[2019-10-03 12:15] LABS: SQUAMOUS EPITHELIAL CELL,UR FEW /LPF (FEW)
[2019-10-03] MEDS ORDERED: CefTRIAXone/D5W-Rocephin 1gm 50 ML IV ONE (12:15)
[2019-10-03 12:16] LABS: BACTERIA,URINE FEW /HPF (Neg); RBC,URINE 0-2 /HPF (0-2); WBC,URINE 0-4 /HPF (0-4); YEAST MODERATE /HPF (NEGATIVE)
[2019-10-03] MEDS ORDERED: LORazepam 2 mg/ml vial IV ONE (12:25)
[2019-10-03] MEDS ORDERED: TIZA4TAB5 PO (12:35)
[2019-10-03] MEDS ORDERED: TIOT18CA3 INH (12:35)
[2019-10-03] MEDS ORDERED: SIMV-42 PO (12:35)
[2019-10-03] MEDS ORDERED: ISOS60TA4 PO (12:35)
[2019-10-03] MEDS ORDERED: LIRA0.6P2 SUBCUT (12:37)
--- NOTE | 2019-10-03 13:12 | NUR ---
PATIENT REPORTS "BAD PAIN" IN HER CHEST, UPPER LEFT. UNABLE TO FIND DR SALGUERO. DR ARSHAD STATED : WAIT TILL HE GETS BACK". NO ORDERS FROM DR ARSHAD RECEIVED
[2019-10-03] MEDS ORDERED: morphine 2 MG/ML inj. syringe IV ONE ×2 (13:25→14:20)
[2019-10-03] MEDS ORDERED: HUM100IN SQ (13:33)
[2019-10-03] MEDS ORDERED: NITR0.4T48 SL (13:34)
[2019-10-03] MEDS ORDERED: magnesium 4gm in 100ml NS 100 ML IV PRN (13:35)
[2019-10-03] MEDS ORDERED: magnesium 2GM in 50ml NS 50 ML IV PRN (13:35)
[2019-10-03] MEDS ORDERED: ondansetron/PF 4mg/2ml inj IV PRN (13:35)
[2019-10-03] MEDS ORDERED: acetaminophen 325mg tablet PO PRN (13:35)
[2019-10-03] MEDS ORDERED: potassium Cl 20 mEq SR tablet PO PRN ×2 (13:35)
[2019-10-03] MEDS ORDERED: magnesium Cl slow-release 64mg tablet PO PRN (13:35)
[2019-10-03] MEDS ORDERED: potassium CL 10mEq/100ml bag 100 ML IV PRN ×2 (13:35)
[2019-10-03] MEDS ORDERED: ipratropium/albuterol 3ml nebule NEB PRN (13:35)
[2019-10-03] MEDS ORDERED: HYDROcodone/acetaminophen 5mg/325mg tablet PO PRN (13:35)
[2019-10-03] MEDS: clopidogrel 75mg tablet PO SCH (15:05)
[2019-10-03] MEDS: allopurinol 100mg tablet PO SCH (15:05)
[2019-10-03] MEDS ORDERED: nitroGLYCERIN 0.4mg SUBLingual tab SL PRN (15:05)
[2019-10-03] MEDS ORDERED: tizanidine 4mg tablet PO PRN (15:05)
[2019-10-03] MEDS ORDERED: ipratropium 0.5 MG/2.5ML nebule IH PRN (15:30)
--- NOTE | 2019-10-03 15:46 | NUR ---
Patient in room ED 9. I have received report from EH Gomez and had the opportunity to ask questions and assume patient care.
--- NOTE | 2019-10-03 16:00 | NUR ---
Pt arrived on unit
[2019-10-03] MEDS: levoFLOXACIN-Levaquin 500mg/D5 100 ML IV SCH (16:06)
[2019-10-03 16:15] VITALS: BP 142/80
[2019-10-03] MEDS ORDERED: ipratropium/albuterol 3ml nebule NEB SCH (17:00)
[2019-10-03] MEDS ORDERED: ERTU15TA PO (17:17)
--- NOTE | 2019-10-03 18:43 | NUR ---
Problems reprioritized. Patient report given, questions answered & plan of care reviewed with EH Suarez.
[2019-10-03 19:00] VITALS: BP 127/76
--- NOTE | 2019-10-03 19:10 | NUR ---
Patient in room PCU 3010. I have received report from Jennifer STAUFFER and had the opportunity to ask questions and assume patient care. Pt laying in bed eating dinner. No signs of distress. Will continue to monitor.
--- NOTE | 2019-10-03 19:14 | NUR ---
Patient in room PCU 3010. I have received report from Jennifer STAUFFER and had the opportunity to ask questions and assume patient care.
[2019-10-03] MEDS: heparin, porcine 5000 units/ml vial SQ SCH (19:33)
[2019-10-03] MEDS: HYDROcodone/acetaminophen 10/325mg tab PO PRN (19:35)
[2019-10-03] MEDS: methylPREDNISolone sod succ 125mg/2ml vial IV SCH (19:38)
[2019-10-03] MEDS: ipratropium/albuterol 3ml nebule NEB PRN (20:06)
[2019-10-03] MEDS ORDERED: INSULIN LISPRO PROTAMINE SQ SCH (21:00)
[2019-10-03] MEDS ORDERED: INSULIN LISPRO SQ SCH (21:00)
[2019-10-03] MEDS ORDERED: [UNRECOGNIZED DRUG - OTHER] SQ SCH (21:00)
[2019-10-03] MEDS: gabapentin 400mg capsule PO SCH (22:01)
[2019-10-03] MEDS: morphine 2 MG/ML inj. syringe IV PRN (22:02)
[2019-10-03 23:00] VITALS: BP 148/83
[2019-10-03] MEDS ORDERED: glucagon, human recombinant 1mg kit SUBCUT PRN (23:00)
[2019-10-03] MEDS ORDERED: dextrose 50%-water 50ml dispensing syringe IV PRN ×2 (23:00)
[2019-10-03] MEDS ORDERED: dextrose ORAL solution 15 GM/59 ML bottle PO PRN ×2 (23:00)
[2019-10-03] MEDS ORDERED: MESSAGE TO PHARMACY PO ONE (23:00)
[2019-10-03] MEDS: duloxetine 30mg CAPSULE.DR PO SCH (23:33)
[2019-10-03] MEDS: clonazePAM 1mg tablet PO PRN (23:34)
[2019-10-03 23:47] LABS: HEMOGLOBIN A1C 7.7 % (4.5-6.2)
[2019-10-04] MEDS: HYDROcodone/acetaminophen 10/325mg tab PO PRN ×5 (00:45→22:17)
[2019-10-04] MEDS: ipratropium/albuterol 3ml nebule NEB PRN ×4 (00:55→20:28)
[2019-10-04 02:00] VITALS: BP 143/83
[2019-10-04] MEDS: morphine 2 MG/ML inj. syringe IV PRN ×5 (02:15→20:12)
[2019-10-04 06:00] VITALS: BP 151/89
[2019-10-04 06:05] LABS: BASOPHILS % (AUTO) 0.1 % (0-1); EOSINOPHILS % (AUTO) 0 % (0-6); HEMATOCRIT 37.9 % (35.0-45.0); HEMOGLOBIN 12.2 g/dl (12.0-16.0); LYMPHOCYTES # (AUTO) 1.5 X10'3 (1.1-4.8); LYMPHOCYTES % (AUTO) 12.5 % (21-51); MEAN CORPUSCULAR HEMOGLOBIN 27.2 PG (27.0-31.0); MEAN CORPUSCULAR HGB CONC 32.1 g/dL (33.0-36.5); MEAN CORPUSCULAR VOLUME 84.8 FL (78-98); MEAN PLATELET VOLUME 6.9 FL (7.4-10.4); MONOCYTES # (AUTO) 0.5 X10'3 (0-0.9); NEUTROPHILS # (AUTO) 10.1 X10'3 (1.8-7.7); NEUTROPHILS % (AUTO) 83.4 % (42-75); PLATELET COUNT 337 X10'3 (140-440); RED BLOOD COUNT 4.47 X10'6 (4.20-5.60); RED CELL DISTRIBUTION WIDTH 18.5 % (11.5-14.5); WHITE BLOOD COUNT 12.1 X10'3 (4.5-11.0)
--- NOTE | 2019-10-04 06:15 | NUR ---
Problems reprioritized. Patient report given, questions answered & plan of care reviewed with Odalys STAUFFER.
[2019-10-04 06:16] LABS: ALBUMIN 3.1 G/DL (3.4-5.0); ANION GAP 8 (8-16); BLOOD UREA NITROGEN 18 MG/DL (7-18); BUN/CREATININE RATIO 22.2 (6.6-38.0); CALCIUM 8.6 MG/DL (8.5-10.1); CHLORIDE 101 MMOL/L (99-107); CREATININE 0.81 MG/DL (0.40-0.90); GLUCOSE 236 MG/DL (70-104); MAGNESIUM 2.2 MG/DL (1.5-2.4); POTASSIUM 4.6 MMOL/L (3.5-5.1); SODIUM 138 MMOL/L (135-145); TOTAL CARBON DIOXIDE 29.1 MMOL/L (24-32); eGFR 71 ML/MIN
--- NOTE | 2019-10-04 06:17 | NUR ---
Problems reprioritized. Patient report given, questions answered & plan of care reviewed with Odalys STAUFFER.
--- NOTE | 2019-10-04 06:31 | NUR ---
Patient in room PCU 3010. I have received report from Daniela STAUFFER and had the opportunity to ask questions and assume patient care.
[2019-10-04] MEDS: CefTRIAXone/D5W-Rocephin 1gm 50 ML IV SCH (07:40)
[2019-10-04] MEDS: heparin, porcine 5000 units/ml vial SQ SCH ×2 (07:41→20:19)
[2019-10-04] MEDS: clopidogrel 75mg tablet PO SCH (07:41)
[2019-10-04] MEDS: methylPREDNISolone sod succ 125mg/2ml vial IV SCH ×2 (07:41→20:11)
[2019-10-04] MEDS: gabapentin 400mg capsule PO SCH ×3 (07:42→20:17)
[2019-10-04] MEDS: isosorbide mononitrate 30mg tab.SR.24H PO SCH (07:42)
[2019-10-04] MEDS: pantoprazole 40mg Tablet.DR PO SCH (07:43)
[2019-10-04] MEDS: atorvastatin 10mg tablet PO SCH (07:43)
[2019-10-04] MEDS: allopurinol 100mg tablet PO SCH (07:43)
[2019-10-04] MEDS: insulin Lispro (HumaLOG) vial - multi-dose SQ SCH ×3 (07:56→20:28)
[2019-10-04] MEDS ORDERED: aspirin 81mg tablet.DR PO SCH (08:00)
[2019-10-04] MEDS ORDERED: INSULIN LISPRO PROTAMINE SQ SCH (08:00)
[2019-10-04] MEDS: K and/or MAG REPLACEMENT MC SCH (08:00)
[2019-10-04] MEDS ORDERED: INSULIN LISPRO SQ SCH (08:00)
[2019-10-04] MEDS ORDERED: [UNRECOGNIZED DRUG - OTHER] SQ SCH (08:00)
[2019-10-04] MEDS ORDERED: duloxetine 30mg CAPSULE.DR PO SCH (08:00)
[2019-10-04] MEDS ORDERED: azithromycin/NS 500mg/250ml 250 ML IV SCH (08:00)
--- NOTE | 2019-10-04 09:49 | NUR ---
Page Dr. Quarles PAGER ID: [phone] MESSAGE: Room 3010 Tamie Kapoor: Patient's Aspirin shows 1mg, did you want that to be 81mg Aspirin instead? Thank you, ext [phone]
[2019-10-04 11:00] VITALS: BP 139/83
[2019-10-04] MEDS: levoFLOXACIN-Levaquin 500mg/D5 100 ML IV SCH (11:35)
[2019-10-04 15:00] VITALS: BP 125/78
[2019-10-04] MEDS: aspirin 81mg tablet.DR PO SCH (16:38)
--- NOTE | 2019-10-04 16:52 | NUR ---
DM consult A1c is 7.7, patient met at bedside and written DM education handout with verbal review and referral to outpatient DM education class on Wednesday. Addendum: 10/04/19 at [address] Amended: Links added.
[2019-10-04 18:00] VITALS: BP 144/86
--- NOTE | 2019-10-04 18:11 | NUR ---
Problems reprioritized. Patient report given, questions answered & plan of care reviewed with Shelby RN. Patient stable at time of transfer of care.
[2019-10-04] MEDS: duloxetine 30mg CAPSULE.DR PO SCH (20:18)
[2019-10-04] MEDS: lactobacillus rhamnosus 10,000 MMU CELLS/CAPSULE PO SCH (20:19)
[2019-10-04 22:00] VITALS: BP 160/90
[2019-10-04] MEDS: insulin glargine (Lantus) pen - multi-dose SQ SCH (22:24)
[2019-10-05] MEDS: morphine 2 MG/ML inj. syringe IV PRN ×5 (00:30→19:06)
[2019-10-05 02:00] VITALS: BP 144/87
[2019-10-05] MEDS: HYDROcodone/acetaminophen 10/325mg tab PO PRN ×5 (02:33→21:11)
--- NOTE | 2019-10-05 05:07 | NUR ---
Patient in room PCU 3010. I have received report from Minal Nayak RN and had the opportunity to ask questions and assume patient care.
[2019-10-05] MEDS: ipratropium/albuterol 3ml nebule NEB PRN ×3 (05:40→23:47)
[2019-10-05 06:00] VITALS: BP 168/93
[2019-10-05 06:19] LABS: BASOPHILS % (AUTO) 0.1 % (0-1); EOSINOPHILS % (AUTO) 0 % (0-6); HEMATOCRIT 37.8 % (35.0-45.0); HEMOGLOBIN 12.1 g/dl (12.0-16.0); LYMPHOCYTES # (AUTO) 1.6 X10'3 (1.1-4.8); LYMPHOCYTES % (AUTO) 15.8 % (21-51); MEAN CORPUSCULAR HEMOGLOBIN 27.1 PG (27.0-31.0); MEAN CORPUSCULAR HGB CONC 31.9 g/dL (33.0-36.5); MEAN CORPUSCULAR VOLUME 84.9 FL (78-98); MEAN PLATELET VOLUME 6.7 FL (7.4-10.4); MONOCYTES # (AUTO) 0.3 X10'3 (0-0.9); MONOCYTES % (AUTO) 3.3 % (2-12); NEUTROPHILS # (AUTO) 8.2 X10'3 (1.8-7.7); NEUTROPHILS % (AUTO) 80.8 % (42-75); PLATELET COUNT 343 X10'3 (140-440); RED BLOOD COUNT 4.46 X10'6 (4.20-5.60); RED CELL DISTRIBUTION WIDTH 17.7 % (11.5-14.5); WHITE BLOOD COUNT 10.2 X10'3 (4.5-11.0)
--- NOTE | 2019-10-05 06:21 | NUR ---
Patient in room PCU 3010. I have received report from Shelby STAUFFER and had the opportunity to ask questions and assume patient care.
--- NOTE | 2019-10-05 06:27 | NUR ---
Problems reprioritized. Patient report given, questions answered & plan of care reviewed with EH Fontaine.
[2019-10-05 06:37] LABS: ALBUMIN 3.1 G/DL (3.4-5.0); ANION GAP 9 (8-16); BLOOD UREA NITROGEN 23 MG/DL (7-18); BUN/CREATININE RATIO 28.8 (6.6-38.0); CALCIUM 8.9 MG/DL (8.5-10.1); CHLORIDE 99 MMOL/L (99-107); GLUCOSE 171 MG/DL (70-104); MAGNESIUM 2.2 MG/DL (1.5-2.4); POTASSIUM 4.7 MMOL/L (3.5-5.1); SODIUM 137 MMOL/L (135-145); TOTAL CARBON DIOXIDE 29.2 MMOL/L (24-32); eGFR 72 ML/MIN
[2019-10-05 07:33] LABS: ANISOCYTOSIS 1+; HYPOCHROMASIA 1+; PLATELET ESTIMATE NORMAL; POLYCHROMASIA FEW; STOMATOCYTES 2+
[2019-10-05] MEDS: insulin Lispro (HumaLOG) vial - multi-dose SQ SCH ×3 (07:47→19:31)
[2019-10-05] MEDS: heparin, porcine 5000 units/ml vial SQ SCH ×2 (07:49→19:10)
[2019-10-05] MEDS: lactobacillus rhamnosus 10,000 MMU CELLS/CAPSULE PO SCH ×2 (07:49→19:11)
[2019-10-05] MEDS: isosorbide mononitrate 30mg tab.SR.24H PO SCH (07:49)
[2019-10-05] MEDS: clopidogrel 75mg tablet PO SCH (07:50)
[2019-10-05] MEDS: aspirin 81mg tablet.DR PO SCH (07:50)
[2019-10-05] MEDS: allopurinol 100mg tablet PO SCH (07:50)
[2019-10-05] MEDS: azithromycin 250mg tablet PO SCH (07:50)
[2019-10-05] MEDS: atorvastatin 10mg tablet PO SCH (07:51)
[2019-10-05] MEDS: pantoprazole 40mg Tablet.DR PO SCH (07:51)
[2019-10-05] MEDS: methylPREDNISolone sod succ 125mg/2ml vial IV SCH ×2 (07:51→19:10)
[2019-10-05] MEDS: gabapentin 400mg capsule PO SCH ×3 (07:51→21:10)
[2019-10-05] MEDS: CefTRIAXone/D5W-Rocephin 1gm 50 ML IV SCH (07:56)
[2019-10-05] MEDS: K and/or MAG REPLACEMENT MC SCH (08:00)
[2019-10-05] MEDS: levoFLOXACIN 500mg tablet PO SCH (10:07)
[2019-10-05 11:00] VITALS: BP 142/90
[2019-10-05 15:00] VITALS: BP 120/75
[2019-10-05 18:00] VITALS: BP 138/79
--- NOTE | 2019-10-05 18:08 | NUR ---
Problems reprioritized. Patient report given, questions answered & plan of care reviewed with Shelby RN. Patient stable at time of transfer of care.
--- NOTE | 2019-10-05 18:31 | NUR ---
Patient in room PCU 3010. I have received report from EH Fontaine and had the opportunity to ask questions and assume patient care.
[2019-10-05] MEDS: duloxetine 30mg CAPSULE.DR PO SCH (21:10)
[2019-10-05] MEDS: insulin glargine (Lantus) pen - multi-dose SQ SCH (21:17)
[2019-10-05 22:45] VITALS: BP 161/90
[2019-10-06] MEDS: morphine 2 MG/ML inj. syringe IV PRN ×3 (01:04→13:04)
[2019-10-06] MEDS: HYDROcodone/acetaminophen 10/325mg tab PO PRN ×3 (01:05→09:34)
[2019-10-06 02:00] VITALS: BP 141/88
[2019-10-06 06:24] LABS: BASOPHILS % (AUTO) 0.2 % (0-1); EOSINOPHILS % (AUTO) 0 % (0-6); HEMOGLOBIN 13.6 g/dl (12.0-16.0); LYMPHOCYTES # (AUTO) 2.3 X10'3 (1.1-4.8); LYMPHOCYTES % (AUTO) 20.4 % (21-51); MEAN CORPUSCULAR HEMOGLOBIN 27.1 PG (27.0-31.0); MEAN CORPUSCULAR HGB CONC 32.3 g/dL (33.0-36.5); MEAN CORPUSCULAR VOLUME 83.7 FL (78-98); MONOCYTES # (AUTO) 0.5 X10'3 (0-0.9); MONOCYTES % (AUTO) 4.2 % (2-12); NEUTROPHILS # (AUTO) 8.5 X10'3 (1.8-7.7); NEUTROPHILS % (AUTO) 75.2 % (42-75); PLATELET COUNT 395 X10'3 (140-440); RED BLOOD COUNT 5.02 X10'6 (4.20-5.60); RED CELL DISTRIBUTION WIDTH 18.2 % (11.5-14.5); WHITE BLOOD COUNT 11.3 X10'3 (4.5-11.0)
--- NOTE | 2019-10-06 06:25 | NUR ---
Patient in room PCU 3010. I have received report from Shelby STAUFFER and had the opportunity to ask questions and assume patient care.
--- NOTE | 2019-10-06 06:25 | NUR ---
Problems reprioritized. Patient report given, questions answered & plan of care reviewed with Eulalio STAUFFER and Barbie student.
[2019-10-06 06:46] LABS: ALBUMIN 3.6 G/DL (3.4-5.0); ANION GAP 12 (8-16); BLOOD UREA NITROGEN 28 MG/DL (7-18); BUN/CREATININE RATIO 35.4 (6.6-38.0); CALCIUM 9.7 MG/DL (8.5-10.1); CHLORIDE 98 MMOL/L (99-107); CREATININE 0.79 MG/DL (0.40-0.90); GLUCOSE 176 MG/DL (70-104); MAGNESIUM 2.2 MG/DL (1.5-2.4); POTASSIUM 4.5 MMOL/L (3.5-5.1); SODIUM 137 MMOL/L (135-145); TOTAL CARBON DIOXIDE 27.1 MMOL/L (24-32); eGFR 74 ML/MIN
[2019-10-06 07:00] VITALS: BP 179/98
[2019-10-06] MEDS: clonazePAM 1mg tablet PO PRN (07:20)
[2019-10-06] MEDS: CefTRIAXone/D5W-Rocephin 1gm 50 ML IV SCH (07:21)
[2019-10-06] MEDS: methylPREDNISolone sod succ 125mg/2ml vial IV SCH (07:22)
[2019-10-06] MEDS: gabapentin 400mg capsule PO SCH ×2 (07:22→12:59)
[2019-10-06] MEDS: azithromycin 250mg tablet PO SCH (07:22)
[2019-10-06] MEDS: allopurinol 100mg tablet PO SCH (07:22)
[2019-10-06] MEDS: atorvastatin 10mg tablet PO SCH (07:22)
[2019-10-06] MEDS: isosorbide mononitrate 30mg tab.SR.24H PO SCH (07:22)
[2019-10-06] MEDS: lactobacillus rhamnosus 10,000 MMU CELLS/CAPSULE PO SCH (07:23)
[2019-10-06] MEDS: aspirin 81mg tablet.DR PO SCH (07:23)
[2019-10-06] MEDS: clopidogrel 75mg tablet PO SCH (07:23)
[2019-10-06] MEDS: pantoprazole 40mg Tablet.DR PO SCH (07:23)
[2019-10-06] MEDS: heparin, porcine 5000 units/ml vial SQ SCH (07:32)
[2019-10-06] MEDS: K and/or MAG REPLACEMENT MC SCH (08:00)
[2019-10-06] MEDS: ipratropium/albuterol 3ml nebule NEB PRN (08:36)
[2019-10-06] MEDS: insulin Lispro (HumaLOG) vial - multi-dose SQ SCH ×2 (09:33→13:03)
[2019-10-06 11:00] VITALS: BP 151/91
[2019-10-06] MEDS: levoFLOXACIN 500mg tablet PO SCH (11:48)
[2019-10-06] MEDS ORDERED: LEVO500T89 PO (12:09)
[2019-10-06] MEDS ORDERED: PRED10TA23 PO (12:09)
[2019-10-06] MEDS ORDERED: FURO-150 PO (12:15)
[2019-10-06] MEDS ORDERED: POTA10TA36 PO (12:16)
--- NOTE | 2019-10-06 12:40 | NUR ---
Orientee documentation: I have reviewed and agree with all interventions, assessments performed and documented by EH Coon.
--- NOTE | 2019-10-06 13:45 | NUR ---
Stable to discharge per MD, discharge packet reviewed w the pt and all questions answered, new prescriptions sent by Dr. Quarles to [facility], PIV discontinued, tele monitor discontinued, pt home medications picked up from [facility] pharmacy and in the pts possession, belongings collected and sent with the patient, left the unit in a wheelchair w/ nurses aide.
[2019-10-06 13:46] LABS: ABG BASE EXCESS 3.3 mmol/L (-2.0-3.0); ABG HCO3 28.5 mmol/L (22.0-26.0); ABG OXYGEN SATURATION 92.4 % (95-98); ABG PCO2 (T) 45.4 mmHg (35.0-45.0); ABG PH (T) 7.416 (7.350-7.450); ABG PO2 (T) 66.7 mmHg (83-108); ALLEN'S TEST Positive; FCOHb 1.4 % (0.5-1.5); FMetHb 0.1 % (0.3-1.12); RESPIRATORY RATE (OBSERVED) 18 b/min; TOTAL HEMOGLOBIN 14.3 G/dl (12.0-16.0)
--- NOTE | 2019-10-06 14:50 | NUR ---
Orientee Medication Administration: For this medication-pass time frame, all medication were reviewed, dispensed, administered and documented per hospital policy by EH Coon.
== END 2019-10-06 15:04 | disposition home or self-care (01) | DRG 140 ==
LOC: ER 10:57 → ED HOLD 14:01 → EDBEDREQ 15:11 → PCU 3S 16:00
PROVIDERS: ADMIT Internal Medicine; ATTEND Internal Medicine
DX: J44.1 Chronic obstructive pulmonary disease with (acute) exacerbation (principal); J96.20 Acute and chronic respiratory failure, unspecified whether with hypoxia or hypercapnia; E11.42 Type 2 diabetes mellitus with diabetic polyneuropathy; I11.0 Hypertensive heart disease with heart failure; I50.9 Heart failure, unspecified; Z99.81 Dependence on supplemental oxygen; E78.00 Pure hypercholesterolemia, unspecified; E78.5 Hyperlipidemia, unspecified; F40.240 Claustrophobia; I25.10 Atherosclerotic heart disease of native coronary artery without angina pectoris; F32.9 Major depressive disorder, single episode, unspecified; G43.909 Migraine, unspecified, not intractable, without status migrainosus; G47.30 Sleep apnea, unspecified; E66.01 Morbid (severe) obesity due to excess calories; G89.29 Other chronic pain; K21.9 Gastro-esophageal reflux disease without esophagitis; M10.9 Gout, unspecified; M19.90 Unspecified osteoarthritis, unspecified site; M54.9 Dorsalgia, unspecified; F17.200 Nicotine dependence, unspecified, uncomplicated; Z79.02 Long term (current) use of antithrombotics/antiplatelets; Z79.4 Long term (current) use of insulin; Z79.51 Long term (current) use of inhaled steroids; Z79.82 Long term (current) use of aspirin; Z79.899 Other long term (current) drug therapy; Z82.49 Family history of ischemic heart disease and other diseases of the circulatory system; Z83.3 Family history of diabetes mellitus; Z90.710 Acquired absence of both cervix and uterus; Z95.5 Presence of coronary angioplasty implant and graft; Z88.8 Allergy status to other drugs, medicaments and biological substances; Z68.37 Body mass index [BMI] 37.0-37.9, adult
CPT/HCPCS: 36415; 36600; 71045; 80048; 80053; 81001; 82803; 82948; 83036; 83605; 83735; 83880; 84145; 84484; 85018; 85025; 85610; 85730; 87040; 87081; 93005; 93306; 94640; 94760; 96365; 96368; 96375; 97110; 97116; 97161; 97530; 99285; G0378; J0456; J0696; J1100; J1644; J1815; J1956; J2060; J2270; J2930; J3475

== ENCOUNTER 2020-01-05 19:15 | Emergency (ER) | payer MEDICAID ==
[~2020-01-05] VITALS: Ht 165.1 cm; Wt 96.8 kg
[~2020-01-05 19:15] MED LIST changes: -ATOR40TA72 PO; -BUSP30TA2 PO; +ERTU15TA PO; -ERTU5TAB PO; +FURO-150 PO; -HYDR-4383 PO; +ISOS60TA4 PO; -LAMO200T10 PO; +LEVO500T89 PO; +NITR0.4T48 SL; +POTA10TA36 PO; -SAXA5TAB PO; +SIMV-42 PO; +TIOT18CA3 INH; +TIZA4TAB5 PO; -VARE1TAB22 PO; -ZOLP10TA5 PO
[2020-01-05 19:32] VITALS: BP 126/71
--- NOTE | 2020-01-05 20:18 | NUR ---
DERIK Montgomery at bedside.
[2020-01-05] MEDS ORDERED: ibuprofen 200mg tablet PO ONE (20:40)
[2020-01-05] MEDS ORDERED: ipratropium/albuterol 3ml nebule NEB ONE (20:40)
[2020-01-05] MEDS ORDERED: IBUP-1985 PO (21:34)
[2020-01-05] MEDS ORDERED: PRED20TA PO (21:34)
== END 2020-01-05 22:15 | disposition home or self-care (01) ==
LOC: ER 19:15
DX: J44.1 Chronic obstructive pulmonary disease with (acute) exacerbation (principal); M25.562 Pain in left knee; G43.909 Migraine, unspecified, not intractable, without status migrainosus; I25.10 Atherosclerotic heart disease of native coronary artery without angina pectoris; I11.0 Hypertensive heart disease with heart failure; I50.9 Heart failure, unspecified; G47.30 Sleep apnea, unspecified; E11.9 Type 2 diabetes mellitus without complications; K21.9 Gastro-esophageal reflux disease without esophagitis; G89.29 Other chronic pain; M19.90 Unspecified osteoarthritis, unspecified site; F41.9 Anxiety disorder, unspecified; F32.9 Major depressive disorder, single episode, unspecified; Z90.710 Acquired absence of both cervix and uterus; Z98.890 Other specified postprocedural states; Z98.61 Coronary angioplasty status; Z88.7 Allergy status to serum and vaccine; Z88.6 Allergy status to analgesic agent; Z88.8 Allergy status to other drugs, medicaments and biological substances; Z79.82 Long term (current) use of aspirin; Z79.899 Other long term (current) drug therapy; Z79.4 Long term (current) use of insulin; W18.39XA Other fall on same level, initial encounter; Y93.89 Activity, other specified; Y92.89 Other specified places as the place of occurrence of the external cause; Y99.8 Other external cause status
CPT/HCPCS: 73564; 94640; 94760; 99284

== ENCOUNTER 2020-01-11 20:08 | Emergency (ER) | payer MEDICAID ==
[~2020-01-11] VITALS: Ht 165.1 cm; Wt 100.0 kg
[~2020-01-11 20:08] MED LIST changes: +IBUP-1985 PO; +PRED20TA PO
[2020-01-11] MEDS ORDERED: aspirin 81mg tab.chew PO ONE ×2 (20:20→21:00)
[2020-01-11] MEDS ORDERED: ondansetron 4mg rapidly disintigrating tab PO ONE (20:20)
[2020-01-11] MEDS ORDERED: morphine 4 MG/ML inj SYRINge IM ONE (20:20)
[2020-01-11] MEDS ORDERED: morphine 4 MG/ML inj SYRINge IV ONE (20:30)
[2020-01-11] MEDS ORDERED: ondansetron/PF 4mg/2ml inj IV ONE (20:30)
[2020-01-11 20:34] LABS: BASOPHILS # (AUTO) 0.1 X10'3 (0-0.2); BASOPHILS % (AUTO) 0.9 % (0-1); EOSINOPHILS # (AUTO) 0.2 X10'3 (0-0.9); EOSINOPHILS % (AUTO) 1.9 % (0-6); HEMATOCRIT 41.1 % (35.0-45.0); HEMOGLOBIN 13.4 g/dl (12.0-16.0); LYMPHOCYTES # (AUTO) 3.3 X10'3 (1.1-4.8); LYMPHOCYTES % (AUTO) 31.8 % (21-51); MEAN CORPUSCULAR HEMOGLOBIN 28.2 PG (27.0-31.0); MEAN CORPUSCULAR HGB CONC 32.6 g/dL (33.0-36.5); MEAN CORPUSCULAR VOLUME 86.3 FL (78-98); MEAN PLATELET VOLUME 6.8 FL (7.4-10.4); MONOCYTES # (AUTO) 0.6 X10'3 (0-0.9); MONOCYTES % (AUTO) 5.4 % (2-12); NEUTROPHILS # (AUTO) 6.3 X10'3 (1.8-7.7); PLATELET COUNT 348 X10'3 (140-440); RED BLOOD COUNT 4.76 X10'6 (4.20-5.60); RED CELL DISTRIBUTION WIDTH 16.9 % (11.5-14.5); WHITE BLOOD COUNT 10.5 X10'3 (4.5-11.0)
[2020-01-11 20:44] LABS: PARTIAL THROMBOPLASTIN TIME 25 SECONDS (22-32)
[2020-01-11] MEDS ORDERED: aspirin 325mg tablet PO ONE (20:50)
[2020-01-11 20:52] LABS: ALANINE AMINOTRANSFERASE 13 U/L (12-78); ALBUMIN 3.6 G/DL (3.4-5.0); ALBUMIN/GLOBULIN RATIO 0.9 (1.1-1.5); ALKALINE PHOSPHATASE 109 IU/L (46-116); ANION GAP 8 (8-16); ASPARTATE AMINO TRANSFERASE 15 U/L (10-37); BILIRUBIN,TOTAL 0.4 MG/DL (0.1-1.0); BLOOD UREA NITROGEN 10 MG/DL (7-18); CALCIUM 9.1 MG/DL (8.5-10.1); CHLORIDE 102 MMOL/L (99-107); CREATININE 0.77 MG/DL (0.40-0.90); GLUCOSE 191 MG/DL (70-104); POTASSIUM 3.2 MMOL/L (3.5-5.1); SODIUM 140 MMOL/L (135-145); TOTAL CARBON DIOXIDE 30.4 MMOL/L (24-32); TOTAL PROTEIN 7.6 G/DL (6.4-8.2); eGFR 76 ML/MIN
[2020-01-11 20:53] LABS: MAGNESIUM 2.3 MG/DL (1.5-2.4)
[2020-01-11] MEDS ORDERED: dexamethasone sod phosphate 10mg/ml inj IV STA (21:18)
[2020-01-11] MEDS ORDERED: ipratropium/albuterol 3ml nebule NEB ONE (21:20)
[2020-01-11] MEDS ORDERED: HYDROcodone/acetaminophen 5mg/325mg tablet PO ONE (21:40)
[2020-01-11] MEDS ORDERED: DOXY100C43 PO (21:42)
[2020-01-11] MEDS ORDERED: ALBU8HFA PO (21:42)
[2020-01-11] MEDS ORDERED: HYDR-3965 PO (21:42)
[2020-01-11] MEDS ORDERED: ONDA4TAB6 PO (21:42)
[2020-01-11] MEDS ORDERED: PRED20TA PO (21:42)
[2020-01-11 22:53] VITALS: BP 148/98
[2020-01-13] MEDS ORDERED: FLUO15OI2 TOP (21:00)
[2020-01-13] MEDS ORDERED: PRED20TA PO (21:00)
[2020-01-13] MEDS ORDERED: DOXY100C76 PO (21:00)
[2020-01-13] MEDS ORDERED: ONDA4TAB6 PO (21:00)
[2020-01-14] MEDS ORDERED: PRED10TA23 PO (12:28)
[2020-01-14] MEDS ORDERED: LEVO750T46 PO (12:28)
== END 2020-01-11 22:50 | disposition home or self-care (01) ==
LOC: ER 20:08
DX: J44.1 Chronic obstructive pulmonary disease with (acute) exacerbation (principal); R07.89 Other chest pain; I25.10 Atherosclerotic heart disease of native coronary artery without angina pectoris; I50.9 Heart failure, unspecified; E78.00 Pure hypercholesterolemia, unspecified; I11.0 Hypertensive heart disease with heart failure; G47.30 Sleep apnea, unspecified; K21.9 Gastro-esophageal reflux disease without esophagitis; E11.9 Type 2 diabetes mellitus without complications; M19.90 Unspecified osteoarthritis, unspecified site; G89.29 Other chronic pain; F41.9 Anxiety disorder, unspecified; F32.9 Major depressive disorder, single episode, unspecified; Z98.61 Coronary angioplasty status; Z90.710 Acquired absence of both cervix and uterus; Z98.890 Other specified postprocedural states; Z88.5 Allergy status to narcotic agent; Z88.8 Allergy status to other drugs, medicaments and biological substances; Z88.7 Allergy status to serum and vaccine; Z79.82 Long term (current) use of aspirin; Z79.4 Long term (current) use of insulin; Z79.899 Other long term (current) drug therapy
CPT/HCPCS: 36415; 71045; 80053; 83735; 83880; 84484; 85025; 85379; 85610; 85730; 93005; 94640; 96374; 96375; 99285; J1100; J2270; J2405; 94760

== ENCOUNTER 2020-02-17 15:04 | Emergency (ER) | payer MEDICAID ==
[~2020-02-17] VITALS: Ht 165.1 cm; Wt 112.3 kg
[~2020-02-17 15:04] MED LIST changes: +FLUO15OI2 TOP; -FLUT16SP20; -FURO-150 PO; -HYDR-4353 PO; -IBUP-1985 PO; -IPRA3AMP31 NEB; -LEVO500T89 PO; +LEVO750T46 PO; -NITR0.4T48 SL; +ONDA4TAB6 PO; -POTA10TA36 PO; -PRED20TA PO; -TIZA4TAB5 PO
[2020-02-17] MEDS ORDERED: ipratropium/albuterol 3ml nebule NEB ONE (15:30)
[2020-02-17] MEDS ORDERED: morphine 4 MG/ML inj SYRINge IV ONE ×2 (15:30→16:35)
[2020-02-17] MEDS ORDERED: LORazepam 2 mg/ml vial IV ONE ×2 (15:30→16:40)
[2020-02-17 15:45] LABS: BASOPHILS % (AUTO) 0.4 % (0-1); EOSINOPHILS # (AUTO) 0.1 X10'3 (0-0.9); EOSINOPHILS % (AUTO) 1.2 % (0-6); HEMATOCRIT 38.3 % (35.0-45.0); HEMOGLOBIN 12.1 g/dl (12.0-16.0); LYMPHOCYTES % (AUTO) 27.1 % (21-51); MEAN CORPUSCULAR HEMOGLOBIN 26.2 PG (27.0-31.0); MEAN CORPUSCULAR HGB CONC 31.7 g/dL (33.0-36.5); MEAN CORPUSCULAR VOLUME 82.9 FL (78-98); MEAN PLATELET VOLUME 6.6 FL (7.4-10.4); MONOCYTES # (AUTO) 0.7 X10'3 (0-0.9); MONOCYTES % (AUTO) 6.1 % (2-12); NEUTROPHILS # (AUTO) 7.1 X10'3 (1.8-7.7); NEUTROPHILS % (AUTO) 65.2 % (42-75); PLATELET COUNT 353 X10'3 (140-440); RED BLOOD COUNT 4.62 X10'6 (4.20-5.60); RED CELL DISTRIBUTION WIDTH 15.8 % (11.5-14.5); WHITE BLOOD COUNT 10.9 X10'3 (4.5-11.0)
[2020-02-17 15:50] LABS: D-DIMER 0.39 MG/L FEU (0-0.50)
[2020-02-17 15:51] LABS: ALANINE AMINOTRANSFERASE 16 U/L (12-78); ALBUMIN 3.1 G/DL (3.4-5.0); ALBUMIN/GLOBULIN RATIO 0.9 (1.1-1.5); ALKALINE PHOSPHATASE 91 IU/L (46-116); ANION GAP 8 (8-16); ASPARTATE AMINO TRANSFERASE 14 U/L (10-37); BILIRUBIN,TOTAL 0.2 MG/DL (0.1-1.0); BLOOD UREA NITROGEN 7 MG/DL (7-18); BUN/CREATININE RATIO 8.5 (6.6-38.0); CALCIUM 8.7 MG/DL (8.5-10.1); CHLORIDE 104 MMOL/L (99-107); CREATININE 0.82 MG/DL (0.40-0.90); GLUCOSE 244 MG/DL (70-104); POTASSIUM 3.6 MMOL/L (3.5-5.1); SODIUM 140 MMOL/L (135-145); TOTAL CARBON DIOXIDE 28.3 MMOL/L (24-32); TOTAL PROTEIN 6.5 G/DL (6.4-8.2); eGFR 70 ML/MIN
[2020-02-17 15:59] LABS: MAGNESIUM 2.1 MG/DL (1.5-2.4)
[2020-02-17] MEDS ORDERED: ondansetron/PF 4mg/2ml inj IV ONE (16:40)
[2020-02-17 17:52] VITALS: BP 148/80
== END 2020-02-17 17:53 | disposition home or self-care (01) ==
LOC: ER 15:04
DX: R07.89 Other chest pain (principal); J20.9 Acute bronchitis, unspecified; R06.02 Shortness of breath; R05 Cough; G43.909 Migraine, unspecified, not intractable, without status migrainosus; I25.10 Atherosclerotic heart disease of native coronary artery without angina pectoris; I50.9 Heart failure, unspecified; I11.0 Hypertensive heart disease with heart failure; E78.00 Pure hypercholesterolemia, unspecified; J44.9 Chronic obstructive pulmonary disease, unspecified; K21.9 Gastro-esophageal reflux disease without esophagitis; E11.9 Type 2 diabetes mellitus without complications; M19.90 Unspecified osteoarthritis, unspecified site; G89.29 Other chronic pain; F41.9 Anxiety disorder, unspecified; F32.9 Major depressive disorder, single episode, unspecified; F17.210 Nicotine dependence, cigarettes, uncomplicated; Z87.01 Personal history of pneumonia (recurrent); Z88.6 Allergy status to analgesic agent; Z88.7 Allergy status to serum and vaccine; Z88.8 Allergy status to other drugs, medicaments and biological substances; Z79.2 Long term (current) use of antibiotics; Z79.82 Long term (current) use of aspirin; Z79.4 Long term (current) use of insulin
CPT/HCPCS: 36415; 71045; 80053; 83735; 83880; 84484; 85025; 85379; 93005; 94640; 96374; 96375; 96376; 99285; J2060; J2270; J2405; 94760

== ENCOUNTER 2020-03-31 12:46 | Emergency (ER) | payer MEDICAID ==
[~2020-03-31] VITALS: Ht 160 cm; Wt 99.1 kg
[2020-03-31 13:09] LABS: BASOPHILS % (AUTO) 0.3 % (0-1); EOSINOPHILS # (AUTO) 0.3 X10'3 (0-0.9); EOSINOPHILS % (AUTO) 3.9 % (0-6); HEMATOCRIT 36.7 % (35.0-45.0); HEMOGLOBIN 11.3 g/dl (12.0-16.0); LYMPHOCYTES # (AUTO) 2.1 X10'3 (1.1-4.8); LYMPHOCYTES % (AUTO) 26.6 % (21-51); MEAN CORPUSCULAR HGB CONC 30.8 g/dL (33.0-36.5); MEAN CORPUSCULAR VOLUME 81.1 FL (78-98); MONOCYTES # (AUTO) 0.5 X10'3 (0-0.9); MONOCYTES % (AUTO) 6.3 % (2-12); NEUTROPHILS # (AUTO) 4.9 X10'3 (1.8-7.7); NEUTROPHILS % (AUTO) 62.9 % (42-75); PLATELET COUNT 296 X10'3 (140-440); RED BLOOD COUNT 4.52 X10'6 (4.20-5.60); RED CELL DISTRIBUTION WIDTH 17.6 % (11.5-14.5); WHITE BLOOD COUNT 7.8 X10'3 (4.5-11.0)
[2020-03-31 13:20] LABS: ALANINE AMINOTRANSFERASE 17 U/L (12-78); ALBUMIN 2.8 G/DL (3.4-5.0); ALBUMIN/GLOBULIN RATIO 0.8 (1.1-1.5); ALKALINE PHOSPHATASE 98 IU/L (46-116); ANION GAP 6 (8-16); ASPARTATE AMINO TRANSFERASE 14 U/L (10-37); BILIRUBIN,TOTAL 0.4 MG/DL (0.1-1.0); BLOOD UREA NITROGEN 5 MG/DL (7-18); CALCIUM 8.2 MG/DL (8.5-10.1); CHLORIDE 106 MMOL/L (99-107); CREATININE 0.84 MG/DL (0.40-0.90); GLUCOSE 207 MG/DL (70-104); POTASSIUM 3.9 MMOL/L (3.5-5.1); SODIUM 139 MMOL/L (135-145); TOTAL PROTEIN 6.3 G/DL (6.4-8.2); eGFR 68 ML/MIN
[2020-03-31] MEDS ORDERED: ipratropium/albuterol 3ml nebule NEB ONE (13:45)
[2020-03-31] MEDS ORDERED: morphine 4 MG/ML inj SYRINge IV ONE ×2 (13:45→14:45)
[2020-03-31] MEDS ORDERED: ondansetron/PF 4mg/2ml inj IV ONE (14:40)
[2020-03-31] MEDS ORDERED: LORazepam 2 mg/ml vial IV ONE (14:45)
--- NOTE | 2020-03-31 15:36 | NUR ---
when i walked in to room pt was breathing even and calm with no wheezing asked how she was donig she stated only a little bit better and she incressed her breathing and started to have wheezing sound when she is breathing
[2020-03-31 16:27] VITALS: BP 113/58
== END 2020-03-31 16:39 | disposition home or self-care (01) ==
LOC: ER 12:47
DX: J44.1 Chronic obstructive pulmonary disease with (acute) exacerbation (principal); G43.909 Migraine, unspecified, not intractable, without status migrainosus; I25.10 Atherosclerotic heart disease of native coronary artery without angina pectoris; I11.0 Hypertensive heart disease with heart failure; I50.9 Heart failure, unspecified; G47.30 Sleep apnea, unspecified; K21.9 Gastro-esophageal reflux disease without esophagitis; E11.9 Type 2 diabetes mellitus without complications; M19.90 Unspecified osteoarthritis, unspecified site; F17.210 Nicotine dependence, cigarettes, uncomplicated; G89.29 Other chronic pain; Z90.710 Acquired absence of both cervix and uterus; Z98.61 Coronary angioplasty status; Z88.7 Allergy status to serum and vaccine; Z88.8 Allergy status to other drugs, medicaments and biological substances; Z79.82 Long term (current) use of aspirin; Z79.899 Other long term (current) drug therapy
CPT/HCPCS: 36415; 71045; 80053; 84484; 85025; 93005; 94640; 96374; 96375; 96376; 99285; J2060; J2270; J2405; 94760

== ENCOUNTER 2020-04-17 15:31 | Emergency (ER) | payer MEDICAID ==
[~2020-04-17] VITALS: Ht 160 cm; Wt 102.0 kg
[2020-04-17] MEDS ORDERED: albuterol 2.5 MG/3 ML nebule CONTNEB PRN (15:40)
[2020-04-17] MEDS ORDERED: morphine 4 MG/ML inj SYRINge IV ONE ×2 (15:40→17:30)
[2020-04-17] MEDS ORDERED: methylPREDNISolone sod succ 125mg/2ml vial IV ONE (15:40)
[2020-04-17 16:18] LABS: ALANINE AMINOTRANSFERASE 24 U/L (12-78); ALBUMIN 3.4 G/DL (3.4-5.0); ALBUMIN/GLOBULIN RATIO 0.9 (1.1-1.5); ALKALINE PHOSPHATASE 113 IU/L (46-116); ANION GAP 5 (8-16); ASPARTATE AMINO TRANSFERASE 17 U/L (10-37); BILIRUBIN,TOTAL 0.2 MG/DL (0.1-1.0); BLOOD UREA NITROGEN 8 MG/DL (7-18); BUN/CREATININE RATIO 9.9 (6.6-38.0); CALCIUM 8.9 MG/DL (8.5-10.1); CHLORIDE 104 MMOL/L (99-107); CREATININE 0.81 MG/DL (0.40-0.90); GLUCOSE 140 MG/DL (70-104); POTASSIUM 4.3 MMOL/L (3.5-5.1); SODIUM 141 MMOL/L (135-145); TOTAL CARBON DIOXIDE 32.4 MMOL/L (24-32); TOTAL PROTEIN 7.1 G/DL (6.4-8.2); eGFR 71 ML/MIN
[2020-04-17 16:32] LABS: BASOPHILS % (AUTO) 0.4 % (0-1); EOSINOPHILS # (AUTO) 0.3 X10'3 (0-0.9); EOSINOPHILS % (AUTO) 3.3 % (0-6); HEMATOCRIT 40.9 % (35.0-45.0); HEMOGLOBIN 12.6 g/dl (12.0-16.0); LYMPHOCYTES # (AUTO) 3.1 X10'3 (1.1-4.8); LYMPHOCYTES % (AUTO) 32.8 % (21-51); MEAN CORPUSCULAR HEMOGLOBIN 24.9 PG (27.0-31.0); MEAN CORPUSCULAR HGB CONC 30.9 g/dL (33.0-36.5); MEAN CORPUSCULAR VOLUME 80.5 FL (78-98); MEAN PLATELET VOLUME 7.6 FL (7.4-10.4); MONOCYTES # (AUTO) 0.6 X10'3 (0-0.9); MONOCYTES % (AUTO) 6.6 % (2-12); NEUTROPHILS # (AUTO) 5.3 X10'3 (1.8-7.7); NEUTROPHILS % (AUTO) 56.9 % (42-75); PLATELET COUNT 275 X10'3 (140-440); RED BLOOD COUNT 5.08 X10'6 (4.20-5.60); RED CELL DISTRIBUTION WIDTH 17.5 % (11.5-14.5); WHITE BLOOD COUNT 9.4 X10'3 (4.5-11.0)
[2020-04-17] MEDS ORDERED: CefTRIAXone 2gm/D5W 50ml 50 ML IV ONE (16:45)
[2020-04-17] MEDS ORDERED: ipratropium/albuterol 3ml nebule NEB ONE (17:30)
[2020-04-17] MEDS ORDERED: AMOX-422 PO (18:24)
[2020-04-17] MEDS ORDERED: PRED20TA PO (18:24)
[2020-04-17 19:08] VITALS: BP 101/64
[2020-04-18] MEDS ORDERED: HYDR-3972 PO (17:04)
[2020-04-18] MEDS ORDERED: FLUT16SP20 NAS (17:04)
[2020-04-18] MEDS ORDERED: NYST60PO2 TP (17:04)
[2020-04-18] MEDS ORDERED: TIZA4TAB5 PO (17:04)
== END 2020-04-17 19:11 | disposition home or self-care (01) ==
LOC: ER 15:32
DX: J44.1 Chronic obstructive pulmonary disease with (acute) exacerbation (principal); J40 Bronchitis, not specified as acute or chronic; R07.9 Chest pain, unspecified; R06.02 Shortness of breath; R05 Cough; G43.909 Migraine, unspecified, not intractable, without status migrainosus; I25.10 Atherosclerotic heart disease of native coronary artery without angina pectoris; I11.0 Hypertensive heart disease with heart failure; I50.9 Heart failure, unspecified; E78.00 Pure hypercholesterolemia, unspecified; E11.9 Type 2 diabetes mellitus without complications; M19.90 Unspecified osteoarthritis, unspecified site; G89.29 Other chronic pain; F41.9 Anxiety disorder, unspecified; F32.9 Major depressive disorder, single episode, unspecified; Z87.01 Personal history of pneumonia (recurrent); Z90.710 Acquired absence of both cervix and uterus; Z98.890 Other specified postprocedural states; Z88.6 Allergy status to analgesic agent; Z88.7 Allergy status to serum and vaccine; Z88.8 Allergy status to other drugs, medicaments and biological substances; Z79.2 Long term (current) use of antibiotics; Z79.82 Long term (current) use of aspirin; Z79.4 Long term (current) use of insulin; Z79.899 Other long term (current) drug therapy
CPT/HCPCS: 36415; 71045; 80053; 83880; 84484; 85025; 85610; 93005; 94640; 96365; 96375; 96376; 99285; J0696; J2270; J2930; 94760

== ENCOUNTER 2020-04-18 12:07 | Inpatient (IN) | payer MEDICAID ==
[~2020-04-18] VITALS: Ht 160 cm; Wt 98.6 kg
[~2020-04-18 12:07] MED LIST changes: +AMOX-422 PO; +PRED20TA PO
[2020-04-18] MEDS ORDERED: methylPREDNISolone sod succ 125mg/2ml vial IV ONE (12:45)
[2020-04-18] MEDS ORDERED: albuterol 2.5 MG/3 ML nebule CONTNEB PRN (12:45)
[2020-04-18] MEDS ORDERED: ondansetron/PF 4mg/2ml inj IV ONE (13:25)
[2020-04-18] MEDS ORDERED: benzonatate 100mg capsule PO ONE (13:25)
[2020-04-18 13:32] LABS: ALANINE AMINOTRANSFERASE 26 U/L (12-78); ALBUMIN 3.9 G/DL (3.4-5.0); ALBUMIN/GLOBULIN RATIO 0.9 (1.1-1.5); ALKALINE PHOSPHATASE 121 IU/L (46-116); ANION GAP 10 (8-16); ASPARTATE AMINO TRANSFERASE 21 U/L (10-37); BILIRUBIN,TOTAL 0.3 MG/DL (0.1-1.0); BLOOD UREA NITROGEN 17 MG/DL (7-18); BUN/CREATININE RATIO 18.7 (6.6-38.0); CALCIUM 10.1 MG/DL (8.5-10.1); CHLORIDE 102 MMOL/L (99-107); CREATININE 0.91 MG/DL (0.40-0.90); GLUCOSE 126 MG/DL (70-104); POTASSIUM 4.3 MMOL/L (3.5-5.1); SODIUM 140 MMOL/L (135-145); TOTAL CARBON DIOXIDE 27.6 MMOL/L (24-32); TOTAL PROTEIN 8.4 G/DL (6.4-8.2); eGFR 62 ML/MIN
[2020-04-18] MEDS ORDERED: morphine 4 MG/ML inj SYRINge IV ONE ×2 (14:00→15:25)
[2020-04-18 14:27] LABS: BASOPHILS % (AUTO) 0.2 % (0-1); EOSINOPHILS % (AUTO) 0.1 % (0-6); HEMOGLOBIN 14.1 g/dl (12.0-16.0); LYMPHOCYTES # (AUTO) 2.2 X10'3 (1.1-4.8); LYMPHOCYTES % (AUTO) 9.9 % (21-51); MEAN CORPUSCULAR HEMOGLOBIN 25.2 PG (27.0-31.0); MEAN CORPUSCULAR HGB CONC 31.3 g/dL (33.0-36.5); MEAN CORPUSCULAR VOLUME 80.6 FL (78-98); MEAN PLATELET VOLUME 7.6 FL (7.4-10.4); MONOCYTES # (AUTO) 1.4 X10'3 (0-0.9); MONOCYTES % (AUTO) 6.3 % (2-12); NEUTROPHILS # (AUTO) 18.4 X10'3 (1.8-7.7); NEUTROPHILS % (AUTO) 83.5 % (42-75); PLATELET COUNT 378 X10'3 (140-440); RED BLOOD COUNT 5.58 X10'6 (4.20-5.60); RED CELL DISTRIBUTION WIDTH 17.3 % (11.5-14.5)
[2020-04-18 14:33] LABS: PARTIAL THROMBOPLASTIN TIME 26 SECONDS (22-32)
[2020-04-18] MEDS ORDERED: azithromycin/NS 500mg/250ml 250 ML IV ONE (14:45)
[2020-04-18] MEDS ORDERED: CefTRIAXone/D5W-Rocephin 1gm 50 ML IV ONE (14:45)
[2020-04-18] MEDS ORDERED: normal saline 1000ML IV soln IVB ONE (16:45)
[2020-04-18] MEDS ORDERED: NYST60PO2 TP (17:04)
[2020-04-18] MEDS ORDERED: HYDR-3972 PO (17:04)
[2020-04-18] MEDS ORDERED: TIZA4TAB5 PO (17:04)
[2020-04-18] MEDS ORDERED: FLUT16SP20 NAS (17:04)
[2020-04-18] MEDS ORDERED: iohexol 350MG/ML 100ml bottle IV ONE (17:33)
--- NOTE | 2020-04-18 17:43 | NUR ---
pt out to ct via ana with machine tool electrician
[2020-04-18] MEDS ORDERED: tizanidine 4mg tablet PO PRN (18:15)
[2020-04-18] MEDS: normal saline 1000ml 1,000 ML IV SCH (18:16)
[2020-04-18] MEDS ORDERED: acetaminophen 650mg rectal suppository RC PRN (18:20)
[2020-04-18] MEDS ORDERED: magnesium hydroxide 30ml (MOM) UD suspension PO PRN (18:20)
[2020-04-18] MEDS ORDERED: bisacodyl 10mg suppository rectal RC PRN (18:20)
[2020-04-18] MEDS ORDERED: ondansetron/PF 4mg/2ml inj IV PRN (18:20)
[2020-04-18] MEDS ORDERED: mag hydrox/Alum hydrox/simeth 30ml oral suspension PO PRN (18:20)
[2020-04-18] MEDS ORDERED: MESSAGE TO PHARMACY PO ONE (18:20)
[2020-04-18] MEDS ORDERED: dextrose ORAL solution 15 GM/59 ML bottle PO PRN ×2 (18:20)
[2020-04-18] MEDS ORDERED: potassium Cl 20 mEq SR tablet PO PRN ×2 (18:20)
[2020-04-18] MEDS ORDERED: diphenhydrAMINE 25mg capsule PO PRN (18:20)
[2020-04-18] MEDS ORDERED: magnesium 4gm in 100ml NS 100 ML IV PRN (18:20)
[2020-04-18] MEDS ORDERED: glucagon, human recombinant 1mg kit SUBCUT PRN (18:20)
[2020-04-18] MEDS ORDERED: magnesium Cl slow-release 64mg tablet PO PRN (18:20)
[2020-04-18] MEDS ORDERED: potassium CL 10mEq/100ml bag 100 ML IV PRN ×2 (18:20)
[2020-04-18] MEDS ORDERED: dextrose 50%-water 50ml dispensing syringe IV PRN ×2 (18:20)
[2020-04-18] MEDS ORDERED: acetaminophen 325mg tablet PO PRN ×2 (18:20)
[2020-04-18] MEDS ORDERED: HYDROcodone/acetaminophen 5mg/325mg tablet PO PRN (18:20)
[2020-04-18] MEDS ORDERED: magnesium 2GM in 50ml NS 50 ML IV PRN (18:20)
[2020-04-18] MEDS ORDERED: ipratropium 0.5 MG/2.5ML nebule IH PRN (18:35)
[2020-04-18] MEDS: morphine 2 MG/ML inj. syringe IV PRN ×2 (18:57→23:10)
[2020-04-18] MEDS: levoFLOXACIN-Levaquin 750MG/D5 150 ML IV SCH (18:57)
--- NOTE | 2020-04-18 19:29 | NUR ---
Dr. Ojeda made aware of lactic acid. V/s stable. Pt afebrile. No new orders at this time.
[2020-04-18] MEDS: ipratropium/albuterol 3ml nebule NEB SCH ×2 (19:40→23:25)
[2020-04-18] MEDS: FLUOCINOLONE ACETONIDE TP SCH (20:00)
[2020-04-18] MEDS: K and/or MAG REPLACEMENT MC SCH (20:00)
--- NOTE | 2020-04-18 20:24 | NUR ---
Attempted to give report for pt who will be going to room 3020P. Nurse unavailable at this time.
[2020-04-18 21:10] VITALS: BP 121/69
[2020-04-18] MEDS: atorvastatin 10mg tablet PO SCH (21:31)
[2020-04-18] MEDS: gabapentin 400mg capsule PO SCH (21:31)
[2020-04-18] MEDS: heparin, porcine 5000 units/ml vial SQ SCH (21:32)
[2020-04-18] MEDS: methylPREDNISolone sod succ 125mg/2ml vial IV SCH (21:32)
[2020-04-18] MEDS: nystatin 15 GM powder TP SCH (21:32)
[2020-04-18] MEDS: clonazePAM 0.5mg tablet PO PRN (21:40)
[2020-04-18] MEDS: HYDROcodone/acetaminophen 10/325mg tab PO PRN (22:07)
[2020-04-18] MEDS: insulin glargine (Lantus) pen - multi-dose SQ SCH (22:31)
[2020-04-19] MEDS: methylPREDNISolone sod succ 125mg/2ml vial IV SCH ×4 (01:26→19:33)
[2020-04-19 02:00] VITALS: BP 120/67
[2020-04-19] MEDS: ipratropium/albuterol 3ml nebule NEB SCH ×6 (03:12→23:12)
[2020-04-19] MEDS: morphine 2 MG/ML inj. syringe IV PRN ×5 (03:55→21:09)
[2020-04-19 05:47] LABS: BASOPHILS % (AUTO) 0 % (0-1); EOSINOPHILS % (AUTO) 0 % (0-6); HEMATOCRIT 37.5 % (35.0-45.0); HEMOGLOBIN 11.6 g/dl (12.0-16.0); LYMPHOCYTES # (AUTO) 0.7 X10'3 (1.1-4.8); LYMPHOCYTES % (AUTO) 8.1 % (21-51); MEAN CORPUSCULAR HEMOGLOBIN 25.1 PG (27.0-31.0); MEAN CORPUSCULAR HGB CONC 30.8 g/dL (33.0-36.5); MEAN CORPUSCULAR VOLUME 81.4 FL (78-98); MEAN PLATELET VOLUME 7.5 FL (7.4-10.4); MONOCYTES # (AUTO) 0.1 X10'3 (0-0.9); MONOCYTES % (AUTO) 1.1 % (2-12); NEUTROPHILS # (AUTO) 8.3 X10'3 (1.8-7.7); NEUTROPHILS % (AUTO) 90.8 % (42-75); PLATELET COUNT 277 X10'3 (140-440); RED CELL DISTRIBUTION WIDTH 17.3 % (11.5-14.5); WHITE BLOOD COUNT 9.2 X10'3 (4.5-11.0)
[2020-04-19 06:00] VITALS: BP 121/73
[2020-04-19 06:04] LABS: ALANINE AMINOTRANSFERASE 23 U/L (12-78); ALBUMIN 3.3 G/DL (3.4-5.0); ALBUMIN/GLOBULIN RATIO 0.9 (1.1-1.5); ALKALINE PHOSPHATASE 93 IU/L (46-116); ANION GAP 8 (8-16); ASPARTATE AMINO TRANSFERASE 11 U/L (10-37); BILIRUBIN,TOTAL 0.2 MG/DL (0.1-1.0); BLOOD UREA NITROGEN 18 MG/DL (7-18); BUN/CREATININE RATIO 18.4 (6.6-38.0); CALCIUM 8.9 MG/DL (8.5-10.1); CHLORIDE 105 MMOL/L (99-107); CHOL/HDL RATIO 4.8 (0.00-4.99); CHOLESTEROL 135 MG/DL (0-200); CREATININE 0.98 MG/DL (0.40-0.90); GLUCOSE 191 MG/DL (70-104); HDL CHOLESTEROL 28 MG/DL (35-60); LDL CHOLESTEROL 74 MG/DL (50-100); PHOSPHORUS 4.2 MG/DL (2.3-4.5); POTASSIUM 4.5 MMOL/L (3.5-5.1); SODIUM 140 MMOL/L (135-145); TOTAL CARBON DIOXIDE 27.1 MMOL/L (24-32); TOTAL PROTEIN 6.9 G/DL (6.4-8.2); TRIGLYCERIDES 143 MG/DL (20-135); eGFR 57 ML/MIN
--- NOTE | 2020-04-19 06:15 | NUR ---
Problems reprioritized. Patient report given, questions answered & plan of care reviewed with Mavis STAUFFER.
[2020-04-19] MEDS: K and/or MAG REPLACEMENT MC SCH ×2 (07:06→20:00)
[2020-04-19] MEDS: heparin, porcine 5000 units/ml vial SQ SCH ×2 (07:31→19:34)
[2020-04-19] MEDS: levoFLOXACIN-Levaquin 750MG/D5 150 ML IV SCH (07:31)
[2020-04-19] MEDS: nystatin 15 GM powder TP SCH ×2 (07:31→21:07)
[2020-04-19] MEDS: allopurinol 100mg tablet PO SCH (07:32)
[2020-04-19] MEDS: pantoprazole 40mg Tablet.DR PO SCH (07:32)
[2020-04-19] MEDS: duloxetine 30mg CAPSULE.DR PO SCH (07:32)
[2020-04-19] MEDS: aspirin 81mg tablet.DR PO SCH (07:32)
[2020-04-19] MEDS: gabapentin 400mg capsule PO SCH ×2 (07:33→19:34)
[2020-04-19] MEDS: isosorbide mononitrate 30mg tab.SR.24H PO SCH (07:33)
[2020-04-19] MEDS: clopidogrel 75mg tablet PO SCH (07:34)
[2020-04-19] MEDS: normal saline 1000ml 1,000 ML IV SCH (07:36)
[2020-04-19] MEDS: FLUOCINOLONE ACETONIDE TP SCH ×2 (08:02→20:00)
[2020-04-19] MEDS: insulin Lispro (HumaLOG) vial - multi-dose SQ SCH ×3 (09:01→19:25)
--- NOTE | 2020-04-19 10:24 | NUR ---
DM consult, A1c 6.8, was 7.7 last october. DM education not needed at this time. Will follow. Addendum: 04/19/20 at [address] Amended: Links added.
[2020-04-19 11:00] VITALS: BP 114/68
[2020-04-19] MEDS: HYDROcodone/acetaminophen 10/325mg tab PO PRN ×3 (12:11→23:37)
--- NOTE | 2020-04-19 14:05 | NUR ---
Patient in room PCU 3023. I have received report from EH Gamble and had the opportunity to ask questions and assume patient care.
[2020-04-19 15:00] VITALS: BP 119/62
[2020-04-19 18:00] VITALS: BP 110/56
--- NOTE | 2020-04-19 18:15 | NUR ---
Problems reprioritized. Patient report given, questions answered & plan of care reviewed with EH Villalpando.
--- NOTE | 2020-04-19 18:42 | NUR ---
Patient in room PCU 3023. I have received report from Valeria STAUFFER and had the opportunity to ask questions and assume patient care.
[2020-04-19] MEDS: clonazePAM 0.5mg tablet PO PRN (19:33)
[2020-04-19] MEDS: lactobacillus rhamnosus 10,000 MMU CELLS/CAPSULE PO SCH (19:35)
[2020-04-19] MEDS: atorvastatin 10mg tablet PO SCH (21:07)
[2020-04-19] MEDS: insulin glargine (Lantus) pen - multi-dose SQ SCH (21:26)
[2020-04-19 22:00] VITALS: BP 119/71
[2020-04-20] MEDS: methylPREDNISolone sod succ 125mg/2ml vial IV SCH ×3 (01:23→13:10)
[2020-04-20] MEDS: morphine 2 MG/ML inj. syringe IV PRN ×3 (01:24→09:41)
[2020-04-20] MEDS: normal saline 1000ml 1,000 ML IV SCH (01:25)
[2020-04-20 02:00] VITALS: BP 128/74
[2020-04-20] MEDS: ipratropium/albuterol 3ml nebule NEB SCH ×3 (03:23→10:47)
[2020-04-20] MEDS: HYDROcodone/acetaminophen 10/325mg tab PO PRN ×3 (03:40→12:54)
[2020-04-20 06:10] LABS: ALANINE AMINOTRANSFERASE 17 U/L (12-78); ALBUMIN 3.1 G/DL (3.4-5.0); ALBUMIN/GLOBULIN RATIO 0.9 (1.1-1.5); ALKALINE PHOSPHATASE 79 IU/L (46-116); ANION GAP 5 (8-16); ASPARTATE AMINO TRANSFERASE 9 U/L (10-37); BILIRUBIN,TOTAL 0.2 MG/DL (0.1-1.0); BLOOD UREA NITROGEN 21 MG/DL (7-18); BUN/CREATININE RATIO 26.3 (6.6-38.0); CALCIUM 8.9 MG/DL (8.5-10.1); CHLORIDE 107 MMOL/L (99-107); GLUCOSE 192 MG/DL (70-104); MAGNESIUM 2.3 MG/DL (1.5-2.4); POTASSIUM 4.4 MMOL/L (3.5-5.1); SODIUM 142 MMOL/L (135-145); TOTAL CARBON DIOXIDE 30.5 MMOL/L (24-32); TOTAL PROTEIN 6.5 G/DL (6.4-8.2); eGFR 72 ML/MIN
--- NOTE | 2020-04-20 06:11 | NUR ---
Patient in room PCU 3023. I have received report from EH Villalpando and had the opportunity to ask questions and assume patient care.
[2020-04-20 06:12] LABS: BASOPHILS % (AUTO) 0 % (0-1); EOSINOPHILS % (AUTO) 0 % (0-6); HEMATOCRIT 37.6 % (35.0-45.0); HEMOGLOBIN 11.5 g/dl (12.0-16.0); LYMPHOCYTES # (AUTO) 0.7 X10'3 (1.1-4.8); LYMPHOCYTES % (AUTO) 12.3 % (21-51); MEAN CORPUSCULAR HEMOGLOBIN 25.1 PG (27.0-31.0); MEAN CORPUSCULAR HGB CONC 30.7 g/dL (33.0-36.5); MEAN CORPUSCULAR VOLUME 81.8 FL (78-98); MEAN PLATELET VOLUME 7.5 FL (7.4-10.4); MONOCYTES # (AUTO) 0.1 X10'3 (0-0.9); MONOCYTES % (AUTO) 1.7 % (2-12); NEUTROPHILS # (AUTO) 5.2 X10'3 (1.8-7.7); PLATELET COUNT 273 X10'3 (140-440); RED BLOOD COUNT 4.59 X10'6 (4.20-5.60); RED CELL DISTRIBUTION WIDTH 17.4 % (11.5-14.5)
[2020-04-20 07:00] VITALS: BP 148/85
--- NOTE | 2020-04-20 07:43 | NUR ---
Problems reprioritized. Patient report given, questions answered & plan of care reviewed with Valeria STAUFFER.
[2020-04-20] MEDS: FLUOCINOLONE ACETONIDE TP SCH (08:00)
[2020-04-20] MEDS: isosorbide mononitrate 30mg tab.SR.24H PO SCH (08:17)
[2020-04-20] MEDS: aspirin 81mg tablet.DR PO SCH (08:17)
[2020-04-20] MEDS: duloxetine 30mg CAPSULE.DR PO SCH (08:17)
[2020-04-20] MEDS: lactobacillus rhamnosus 10,000 MMU CELLS/CAPSULE PO SCH (08:17)
[2020-04-20] MEDS: gabapentin 400mg capsule PO SCH (08:18)
[2020-04-20] MEDS: clopidogrel 75mg tablet PO SCH (08:18)
[2020-04-20] MEDS: pantoprazole 40mg Tablet.DR PO SCH (08:18)
[2020-04-20] MEDS: allopurinol 100mg tablet PO SCH (08:18)
[2020-04-20] MEDS: heparin, porcine 5000 units/ml vial SQ SCH (08:19)
[2020-04-20] MEDS: K and/or MAG REPLACEMENT MC SCH (08:20)
[2020-04-20] MEDS: insulin Lispro (HumaLOG) vial - multi-dose SQ SCH ×2 (08:22→12:53)
[2020-04-20] MEDS: nystatin 15 GM powder TP SCH (08:28)
[2020-04-20 11:00] VITALS: BP 131/80
[2020-04-20] MEDS ORDERED: levoFLOXACIN 750MG TABLET PO SCH (11:00)
[2020-04-20] MEDS ORDERED: morphine 2 MG/ML inj. syringe IV ONE (14:00)
--- NOTE | 2020-04-20 14:42 | NUR ---
Maried Troy PAGER ID: [phone] MESSAGE: [id number] Milady Parks Pt is leaving AMA and signed formed -dalia [phone]
--- NOTE | 2020-04-20 15:04 | NUR ---
Pt left AMA, signed paperwork. Explained the risk and benefits of leaving against medical advice. Chelita notified. Tele monitor removed. PIV removed, cannula intact. Belongings sent with patient. Pt walked downstairs to wait for cab with aide.
== END 2020-04-20 15:04 | disposition left against medical advice (07) | DRG 139 ==
LOC: ER 12:08 → ED HOLD 18:16 → UNDOADMIN 18:22 → ED HOLD 18:22 → PCU 3S 20:52
PROVIDERS: ADMIT Family Medicine; ATTEND Family Medicine
DX: J18.9 Pneumonia, unspecified organism (principal); J96.20 Acute and chronic respiratory failure, unspecified whether with hypoxia or hypercapnia; E87.2 Acidosis; I50.9 Heart failure, unspecified; I11.0 Hypertensive heart disease with heart failure; J44.0 Chronic obstructive pulmonary disease with (acute) lower respiratory infection; J44.1 Chronic obstructive pulmonary disease with (acute) exacerbation; I10 Essential (primary) hypertension; E78.00 Pure hypercholesterolemia, unspecified; E78.5 Hyperlipidemia, unspecified; F32.9 Major depressive disorder, single episode, unspecified; Z53.29 Procedure and treatment not carried out because of patient's decision for other reasons; F41.9 Anxiety disorder, unspecified; K21.9 Gastro-esophageal reflux disease without esophagitis; I25.10 Atherosclerotic heart disease of native coronary artery without angina pectoris; I25.2 Old myocardial infarction; Z79.4 Long term (current) use of insulin; Z79.82 Long term (current) use of aspirin; Z79.899 Other long term (current) drug therapy; Z82.49 Family history of ischemic heart disease and other diseases of the circulatory system; Z82.5 Family history of asthma and other chronic lower respiratory diseases; Z86.73 Personal history of transient ischemic attack (TIA), and cerebral infarction without residual deficits; Z90.710 Acquired absence of both cervix and uterus; Z95.1 Presence of aortocoronary bypass graft; Z95.5 Presence of coronary angioplasty implant and graft
CPT/HCPCS: 36415; 71045; 71275; 80053; 80061; 82948; 83036; 83605; 83735; 84100; 84145; 85025; 85610; 85730; 87040; 87081; 87635; 93005; 93306; 94640; 94760; 99285; G0378; J0456; J0696; J1644; J1815; J1956; J2270; J2405; J2930; J7030; Q9967

== ENCOUNTER 2020-05-30 14:55 | Emergency (ER) | payer MEDICAID ==
[~2020-05-30] VITALS: Ht 160 cm; Wt 99.0 kg
[~2020-05-30 14:55] MED LIST changes: -AMOX-422 PO; +FLUT16SP20 NAS; +HYDR-3972 PO; -LEVO750T46 PO; +NYST60PO2 TP; -PRED20TA PO; +TIZA4TAB5 PO
[2020-05-30 15:07] VITALS: BP 117/80
[2020-05-30] MEDS ORDERED: morphine 4 MG/ML inj SYRINge IM ONE ×2 (17:20→18:25)
--- NOTE | 2020-05-30 17:56 | NUR ---
ASKED THE PA IS SHE WANTS ANY TESTS TO BE DONE STILL AND OVI STATES SHE SAID WE ONLY NEED A URINE SAMPLE. THIS HAS BEEN RECEIVED AND SENT TO THE LAB. BLOOD WORK IS NOT GOING TO BE RUN AT THIS TIME SINCE SHE STATES SHE ONLY WANTS A URINE SAMPLE. PT AWARE.
[2020-05-30 18:01] LABS: CLARITY,URINE SLIGHTLY CLOUDY (Clear); COLOR,URINE YELLOW (Yellow); GLUCOSE, URINE >=1000 mg/dl (Neg); KETONES,URINE NEGATIVE (Neg); LEUKOCYTE ESTERASE ,URINE NEGATIVE (Neg); NITRITES, URINE NEGATIVE (Neg); OCCULT BLOOD,URINE NEGATIVE (Neg); PH,URINE 5.5 (4.8-8.0); PROTEIN,URINE NEGATIVE (Neg); UROBILINOGEN,URINE 0.2 E.U/dL (0.2-1.0)
[2020-05-30 18:12] LABS: UA COLLECTION TYPE CLN CATCH MIDSTREAM
[2020-05-30 18:13] LABS: BACTERIA,URINE 3+ /HPF (Neg); RBC,URINE NONE SEEN /HPF (0-2); SQUAMOUS EPITHELIAL CELL,UR MODERATE /LPF (FEW); WBC CLUMPS,URINE MODERATE /HPF (NEGATIVE)
== END 2020-05-30 19:00 | disposition home or self-care (01) ==
LOC: ER 14:56
DX: G89.29 Other chronic pain (principal); M54.5 Low back pain; G43.909 Migraine, unspecified, not intractable, without status migrainosus; I25.10 Atherosclerotic heart disease of native coronary artery without angina pectoris; I11.0 Hypertensive heart disease with heart failure; I50.9 Heart failure, unspecified; E78.00 Pure hypercholesterolemia, unspecified; I25.2 Old myocardial infarction; J44.9 Chronic obstructive pulmonary disease, unspecified; K21.9 Gastro-esophageal reflux disease without esophagitis; E11.9 Type 2 diabetes mellitus without complications; M19.90 Unspecified osteoarthritis, unspecified site; F41.9 Anxiety disorder, unspecified; F32.9 Major depressive disorder, single episode, unspecified; Z87.01 Personal history of pneumonia (recurrent); Z90.710 Acquired absence of both cervix and uterus; Z98.890 Other specified postprocedural states; Z88.6 Allergy status to analgesic agent; Z88.8 Allergy status to other drugs, medicaments and biological substances; Z88.7 Allergy status to serum and vaccine; Z79.82 Long term (current) use of aspirin; Z79.4 Long term (current) use of insulin; Z79.899 Other long term (current) drug therapy
CPT/HCPCS: 81001; 96372; 99284; J2270

== ENCOUNTER 2020-06-04 11:21 | Inpatient (IN) | payer MEDICAID ==
[~2020-06-04] VITALS: Ht 167.6 cm; Wt 90.0 kg
[2020-06-04] MEDS ORDERED: morphine 4 MG/ML inj SYRINge IV ONE ×2 (11:30→15:20)
[2020-06-04 12:02] LABS: BASOPHILS # (AUTO) 0.1 X10'3 (0-0.2); BASOPHILS % (AUTO) 0.6 % (0-1); EOSINOPHILS # (AUTO) 0.3 X10'3 (0-0.9); HEMATOCRIT 38.6 % (35.0-45.0); HEMOGLOBIN 12.1 g/dl (12.0-16.0); LYMPHOCYTES # (AUTO) 2.1 X10'3 (1.1-4.8); LYMPHOCYTES % (AUTO) 22.3 % (21-51); MEAN CORPUSCULAR HEMOGLOBIN 25.3 PG (27.0-31.0); MEAN CORPUSCULAR HGB CONC 31.4 g/dL (33.0-36.5); MEAN CORPUSCULAR VOLUME 80.6 FL (78-98); MEAN PLATELET VOLUME 7.3 FL (7.4-10.4); MONOCYTES # (AUTO) 0.6 X10'3 (0-0.9); MONOCYTES % (AUTO) 5.9 % (2-12); NEUTROPHILS # (AUTO) 6.4 X10'3 (1.8-7.7); NEUTROPHILS % (AUTO) 68.2 % (42-75); PLATELET COUNT 300 X10'3 (140-440); RED BLOOD COUNT 4.78 X10'6 (4.20-5.60); RED CELL DISTRIBUTION WIDTH 19.3 % (11.5-14.5); WHITE BLOOD COUNT 9.3 X10'3 (4.5-11.0)
[2020-06-04] MEDS ORDERED: ondansetron/PF 4mg/2ml inj IV ONE (12:10)
[2020-06-04 12:18] LABS: ALANINE AMINOTRANSFERASE 20 U/L (12-78); ALBUMIN 3.2 G/DL (3.4-5.0); ALBUMIN/GLOBULIN RATIO 0.9 (1.1-1.5); ALKALINE PHOSPHATASE 91 IU/L (46-116); ANION GAP 8 (8-16); ASPARTATE AMINO TRANSFERASE 13 U/L (10-37); BILIRUBIN,TOTAL 0.4 MG/DL (0.1-1.0); BLOOD UREA NITROGEN 9 MG/DL (7-18); BUN/CREATININE RATIO 11.5 (6.6-38.0); CALCIUM 8.4 MG/DL (8.5-10.1); CHLORIDE 106 MMOL/L (99-107); CREATININE 0.78 MG/DL (0.40-0.90); GLUCOSE 174 MG/DL (70-104); POTASSIUM 4.2 MMOL/L (3.5-5.1); SODIUM 141 MMOL/L (135-145); TOTAL CARBON DIOXIDE 26.8 MMOL/L (24-32); TOTAL PROTEIN 6.8 G/DL (6.4-8.2); eGFR 74 ML/MIN
[2020-06-04 12:21] LABS: ANISOCYTOSIS 1+; PLATELET ESTIMATE NORMAL
[2020-06-04] MEDS ORDERED: glucagon, human recombinant 1mg kit SUBCUT PRN (13:20)
[2020-06-04] MEDS ORDERED: acetaminophen 325mg tablet PO PRN ×2 (13:20)
[2020-06-04] MEDS ORDERED: insulin Lispro (HumaLOG) vial - multi-dose SQ SCH (13:20)
[2020-06-04] MEDS ORDERED: morphine 2 MG/ML inj. syringe IV PRN ×2 (13:20)
[2020-06-04] MEDS ORDERED: nitroGLYCERIN 0.4mg SUBLingual tab SL PRN (13:20)
[2020-06-04] MEDS ORDERED: mag hydrox/Alum hydrox/simeth 30ml oral suspension PO PRN (13:20)
[2020-06-04] MEDS ORDERED: MESSAGE TO PHARMACY PO ONE (13:20)
[2020-06-04] MEDS ORDERED: magnesium hydroxide 30ml (MOM) UD suspension PO PRN (13:20)
[2020-06-04] MEDS ORDERED: ondansetron/PF 4mg/2ml inj IV PRN (13:20)
[2020-06-04] MEDS ORDERED: dextrose ORAL solution 15 GM/59 ML bottle PO PRN ×2 (13:20)
[2020-06-04] MEDS ORDERED: dextrose 50%-water 50ml dispensing syringe IV PRN ×2 (13:20)
[2020-06-04] MEDS ORDERED: methylPREDNISolone sod succ 125mg/2ml vial IV ONE (13:20)
[2020-06-04] MEDS ORDERED: HYDROcodone/acetaminophen 10/325mg tab PO PRN (13:20)
[2020-06-04] MEDS ORDERED: HYDROcodone/acetaminophen 5mg/325mg tablet PO PRN (13:20)
[2020-06-04] MEDS ORDERED: BUDE10.26 PO (13:37)
[2020-06-04] MEDS ORDERED: METO25TA6 PO (13:38)
[2020-06-04] MEDS ORDERED: ASPI-611 PO (13:38)
--- NOTE | 2020-06-04 15:00 | NUR ---
Patient in room ED 14. I have received report from Zachariah and had the opportunity to ask questions and assume patient care.
[2020-06-04 15:53] VITALS: BP 139/82
[2020-06-04 18:00] VITALS: BP 129/86
--- NOTE | 2020-06-04 18:22 | NUR ---
Problems reprioritized. Patient report given, questions answered & plan of care reviewed with alyse STAUFFER.
--- NOTE | 2020-06-04 18:33 | NUR ---
Patient in room PCU 3016. I have received report from Sabrina STAUFFER and had the opportunity to ask questions and assume patient care.
--- NOTE | 2020-06-04 19:05 | NUR ---
Day shift missed 1700 blood sugar. Patient has not yet met protocol. Will monitor closely and check nighttime blood sugar. Discussed plan with patient and patient in agreement and is aware of signs and symptoms of hyper and hypoglycemia.
--- NOTE | 2020-06-04 20:14 | NUR ---
Patient has chosen to leave AMA. Dr Mcdonald notified and aware. Patient unhappy with not receiving the medications that she had thought she was supposed to get. Stated ' I just want to be home in my bed where i can take my medications when i need to and want to."
--- NOTE | 2020-06-04 20:16 | NUR ---
PAGER ID: [phone] MESSAGE: [id number] Milady Kapoor patient wants to leave AMA. Frieda STAUFFER ext [phone]
[2020-06-04] MEDS ORDERED: insulin glargine (Lantus) pen - multi-dose SQ SCH (21:00)
[2020-06-05] MEDS ORDERED: aspirin 81mg tablet.DR PO SCH (08:00)
== END 2020-06-04 20:15 | disposition left against medical advice (07) | DRG 198 ==
LOC: ER 11:22 → ED HOLD 13:19 → PCU 3S 13:30 → OBSVTOIN 15:50
PROVIDERS: ADMIT Internal Medicine; ATTEND Internal Medicine
DX: R07.89 Other chest pain (principal); J44.9 Chronic obstructive pulmonary disease, unspecified; I25.10 Atherosclerotic heart disease of native coronary artery without angina pectoris; E78.00 Pure hypercholesterolemia, unspecified; E78.5 Hyperlipidemia, unspecified; I11.0 Hypertensive heart disease with heart failure; I25.2 Old myocardial infarction; I50.9 Heart failure, unspecified; Z79.4 Long term (current) use of insulin; Z82.49 Family history of ischemic heart disease and other diseases of the circulatory system; Z82.5 Family history of asthma and other chronic lower respiratory diseases; Z86.73 Personal history of transient ischemic attack (TIA), and cerebral infarction without residual deficits; Z90.710 Acquired absence of both cervix and uterus; Z95.1 Presence of aortocoronary bypass graft; Z95.5 Presence of coronary angioplasty implant and graft
CPT/HCPCS: 36415; 71045; 80053; 83735; 83880; 84484; 85025; 87081; 93005; 96374; 96375; 96376; 99285; G0378; J1815; J2270; J2405; J2930

== ENCOUNTER 2020-06-13 13:36 | Emergency (ER) | payer MEDICAID ==
[~2020-06-13] VITALS: Ht 160 cm; Wt 98.2 kg
[~2020-06-13 13:36] MED LIST changes: -BUDE10.2 INH; +BUDE10.26 PO; -FLUO15OI2 TOP; -GABA-534 PO; +METO25TA6 PO; -NYST60PO2 TP; -TIOT18CA3 INH
[2020-06-13 13:39] VITALS: BP 127/78
[2020-06-13 14:16] LABS: BASOPHILS % (AUTO) 0.4 % (0-1); EOSINOPHILS # (AUTO) 0.3 X10'3 (0-0.9); EOSINOPHILS % (AUTO) 3.9 % (0-6); HEMATOCRIT 38.3 % (35.0-45.0); LYMPHOCYTES # (AUTO) 2.2 X10'3 (1.1-4.8); LYMPHOCYTES % (AUTO) 29.2 % (21-51); MEAN CORPUSCULAR HEMOGLOBIN 25.2 PG (27.0-31.0); MEAN CORPUSCULAR HGB CONC 31.4 g/dL (33.0-36.5); MEAN CORPUSCULAR VOLUME 80.4 FL (78-98); MEAN PLATELET VOLUME 7.1 FL (7.4-10.4); MONOCYTES # (AUTO) 0.6 X10'3 (0-0.9); MONOCYTES % (AUTO) 7.6 % (2-12); NEUTROPHILS # (AUTO) 4.5 X10'3 (1.8-7.7); NEUTROPHILS % (AUTO) 58.9 % (42-75); PLATELET COUNT 288 X10'3 (140-440); RED BLOOD COUNT 4.76 X10'6 (4.20-5.60); RED CELL DISTRIBUTION WIDTH 18.8 % (11.5-14.5); WHITE BLOOD COUNT 7.7 X10'3 (4.5-11.0)
[2020-06-13 14:30] LABS: ALANINE AMINOTRANSFERASE 19 U/L (12-78); ALBUMIN 3.4 G/DL (3.4-5.0); ALBUMIN/GLOBULIN RATIO 0.9 (1.1-1.5); ALKALINE PHOSPHATASE 81 IU/L (46-116); ANION GAP 7 (8-16); ASPARTATE AMINO TRANSFERASE 18 U/L (10-37); BILIRUBIN,TOTAL 0.4 MG/DL (0.1-1.0); BLOOD UREA NITROGEN 12 MG/DL (7-18); BUN/CREATININE RATIO 13.5 (6.6-38.0); CALCIUM 8.9 MG/DL (8.5-10.1); CHLORIDE 103 MMOL/L (99-107); CREATININE 0.89 MG/DL (0.40-0.90); GLUCOSE 211 MG/DL (70-104); POTASSIUM 3.9 MMOL/L (3.5-5.1); SODIUM 138 MMOL/L (135-145); TOTAL CARBON DIOXIDE 27.7 MMOL/L (24-32); eGFR 64 ML/MIN
[2020-06-13 15:01] LABS: PLATELET ESTIMATE NORMAL
[2020-06-13 15:02] LABS: ANISOCYTOSIS 2+
[2020-06-13 15:03] LABS: HYPOCHROMASIA 1+; STOMATOCYTES FEW
== END 2020-06-13 16:58 | disposition left against medical advice (07) ==
LOC: ER 13:36
DX: R07.9 Chest pain, unspecified (principal); Z53.21 Procedure and treatment not carried out due to patient leaving prior to being seen by health care provider
CPT/HCPCS: 36415; 71045; 80053; 84484; 85025; 93005

== ENCOUNTER 2020-06-13 22:27 | Emergency (ER) | payer MEDICAID ==
[~2020-06-13] VITALS: Ht 160 cm; Wt 100.0 kg
[2020-06-13 22:46] LABS: BASOPHILS # (AUTO) 0.1 X10'3 (0-0.2); BASOPHILS % (AUTO) 0.8 % (0-1); EOSINOPHILS # (AUTO) 0.3 X10'3 (0-0.9); EOSINOPHILS % (AUTO) 3.2 % (0-6); HEMATOCRIT 38.7 % (35.0-45.0); HEMOGLOBIN 12.1 g/dl (12.0-16.0); LYMPHOCYTES # (AUTO) 2.3 X10'3 (1.1-4.8); LYMPHOCYTES % (AUTO) 23.4 % (21-51); MEAN CORPUSCULAR HEMOGLOBIN 24.9 PG (27.0-31.0); MEAN CORPUSCULAR HGB CONC 31.3 g/dL (33.0-36.5); MEAN CORPUSCULAR VOLUME 79.4 FL (78-98); MEAN PLATELET VOLUME 7.1 FL (7.4-10.4); MONOCYTES # (AUTO) 0.7 X10'3 (0-0.9); MONOCYTES % (AUTO) 6.9 % (2-12); NEUTROPHILS # (AUTO) 6.4 X10'3 (1.8-7.7); NEUTROPHILS % (AUTO) 65.7 % (42-75); PLATELET COUNT 312 X10'3 (140-440); RED BLOOD COUNT 4.88 X10'6 (4.20-5.60); RED CELL DISTRIBUTION WIDTH 18.7 % (11.5-14.5); WHITE BLOOD COUNT 9.7 X10'3 (4.5-11.0)
[2020-06-13 22:58] LABS: ALANINE AMINOTRANSFERASE 17 U/L (12-78); ALBUMIN 3.6 G/DL (3.4-5.0); ALKALINE PHOSPHATASE 82 IU/L (46-116); ANION GAP 12 (8-16); ASPARTATE AMINO TRANSFERASE 13 U/L (10-37); BILIRUBIN,TOTAL 0.4 MG/DL (0.1-1.0); BLOOD UREA NITROGEN 12 MG/DL (7-18); BUN/CREATININE RATIO 12.2 (6.6-38.0); CALCIUM 9.3 MG/DL (8.5-10.1); CHLORIDE 102 MMOL/L (99-107); CREATININE 0.98 MG/DL (0.40-0.90); GLUCOSE 185 MG/DL (70-104); POTASSIUM 3.9 MMOL/L (3.5-5.1); SODIUM 140 MMOL/L (135-145); TOTAL CARBON DIOXIDE 26.4 MMOL/L (24-32); TOTAL PROTEIN 7.3 G/DL (6.4-8.2); eGFR 57 ML/MIN
[2020-06-13] MEDS ORDERED: dexamethasone sod phosphate 10mg/ml inj IV STA (22:58)
[2020-06-13] MEDS ORDERED: morphine 4 MG/ML inj SYRINge IV ONE (23:00)
[2020-06-13] MEDS ORDERED: nitroGLYCERIN 0.4mg SUBLingual tab SL PRN (23:00)
[2020-06-13] MEDS ORDERED: ondansetron/PF 4mg/2ml inj IV ONE (23:00)
[2020-06-13] MEDS ORDERED: ipratropium/albuterol 3ml nebule NEB ONE (23:00)
[2020-06-14 00:11] LABS: ABG BASE EXCESS 1.6 mmol/L (-2.0-2.0); ABG HCO3 25.9 mmol/L (22.0-26.0); ABG OXYGEN SATURATION 95.9 % (94-97); ABG PCO2 (T) 39.3 mmHg (32.0-45.0); ABG PO2 (T) 78.1 mmHg (75.0-100.0); ALLEN'S TEST POSITIVE; FCOHb 7.7 % (0.0-3.9); FMetHb 0.1 % (0.0-1.5); FO2Hb 88.4 % (94-97); PATIENT TEMPERATURE 36.9; TOTAL HEMOGLOBIN 13.1 G/dl (12.0-16.0)
[2020-06-14 01:58] VITALS: BP 128/80
== END 2020-06-14 01:59 | disposition home or self-care (01) ==
LOC: ER 22:28
DX: I24.9 Acute ischemic heart disease, unspecified (principal); J44.1 Chronic obstructive pulmonary disease with (acute) exacerbation; I25.10 Atherosclerotic heart disease of native coronary artery without angina pectoris; E11.65 Type 2 diabetes mellitus with hyperglycemia; E11.22 Type 2 diabetes mellitus with diabetic chronic kidney disease; N18.9 Chronic kidney disease, unspecified; I13.0 Hypertensive heart and chronic kidney disease with heart failure and stage 1 through stage 4 chronic kidney disease, or unspecified chronic kidney disease; I50.9 Heart failure, unspecified; E78.00 Pure hypercholesterolemia, unspecified; I25.2 Old myocardial infarction; G47.30 Sleep apnea, unspecified; K21.9 Gastro-esophageal reflux disease without esophagitis; G89.29 Other chronic pain; F41.9 Anxiety disorder, unspecified; F32.9 Major depressive disorder, single episode, unspecified; F17.200 Nicotine dependence, unspecified, uncomplicated; Z90.49 Acquired absence of other specified parts of digestive tract; Z98.61 Coronary angioplasty status; Z98.890 Other specified postprocedural states; Z88.8 Allergy status to other drugs, medicaments and biological substances; Z79.82 Long term (current) use of aspirin; Z79.4 Long term (current) use of insulin; Z79.899 Other long term (current) drug therapy
CPT/HCPCS: 36415; 36600; 80053; 82803; 83880; 84484; 85018; 85025; 85379; 93005; 94640; 96374; 96375; 99284; J1100; J2270; J2405; 94760

== ENCOUNTER 2020-06-17 11:30 | Emergency (ER) | payer MEDICAID ==
[~2020-06-17] VITALS: Ht 160 cm; Wt 98.2 kg
[~2020-06-17 11:30] MED LIST changes: -ONDA4TAB6 PO
[2020-06-17 12:14] LABS: BASOPHILS % (AUTO) 0.4 % (0-1); EOSINOPHILS # (AUTO) 0.2 X10'3 (0-0.9); HEMOGLOBIN 12.2 g/dl (12.0-16.0); LYMPHOCYTES # (AUTO) 2.5 X10'3 (1.1-4.8); LYMPHOCYTES % (AUTO) 25.5 % (21-51); MEAN CORPUSCULAR HGB CONC 31.4 g/dL (33.0-36.5); MEAN CORPUSCULAR VOLUME 79.8 FL (78-98); MONOCYTES # (AUTO) 0.7 X10'3 (0-0.9); MONOCYTES % (AUTO) 6.6 % (2-12); NEUTROPHILS # (AUTO) 6.5 X10'3 (1.8-7.7); NEUTROPHILS % (AUTO) 65.5 % (42-75); PLATELET COUNT 313 X10'3 (140-440); RED BLOOD COUNT 4.89 X10'6 (4.20-5.60); RED CELL DISTRIBUTION WIDTH 18.8 % (11.5-14.5); WHITE BLOOD COUNT 9.9 X10'3 (4.5-11.0)
[2020-06-17 12:30] LABS: ALANINE AMINOTRANSFERASE 19 U/L (12-78); ALBUMIN 3.3 G/DL (3.4-5.0); ALBUMIN/GLOBULIN RATIO 0.9 (1.1-1.5); ALKALINE PHOSPHATASE 88 IU/L (46-116); ANION GAP 8 (8-16); ASPARTATE AMINO TRANSFERASE 12 U/L (10-37); BILIRUBIN,TOTAL 0.4 MG/DL (0.1-1.0); BLOOD UREA NITROGEN 11 MG/DL (7-18); BUN/CREATININE RATIO 15.1 (6.6-38.0); CALCIUM 8.8 MG/DL (8.5-10.1); CHLORIDE 103 MMOL/L (99-107); CREATININE 0.73 MG/DL (0.40-0.90); GLUCOSE 157 MG/DL (70-104); POTASSIUM 4.3 MMOL/L (3.5-5.1); SODIUM 138 MMOL/L (135-145); TOTAL CARBON DIOXIDE 26.8 MMOL/L (24-32); TOTAL PROTEIN 6.9 G/DL (6.4-8.2); eGFR 80 ML/MIN
[2020-06-17 12:53] LABS: ANISOCYTOSIS 2+; MICROCYTOSIS 1+; PLATELET ESTIMATE NORMAL
[2020-06-17] MEDS ORDERED: ipratropium/albuterol 3ml nebule NEB ONE (12:55)
[2020-06-17] MEDS ORDERED: albuterol 2.5 MG/3 ML nebule NEB ONE (12:55)
[2020-06-17] MEDS ORDERED: methylPREDNISolone sod succ 125mg/2ml vial IV ONE (12:55)
[2020-06-17] MEDS ORDERED: oxyCODONE/APAP 5-325mg tablet PO ONE (13:30)
[2020-06-17] MEDS ORDERED: azithromycin 250mg tablet PO ONE (14:15)
[2020-06-17] MEDS ORDERED: AZIT-31 PO (14:16)
[2020-06-17] MEDS ORDERED: PRED20TA PO (14:16)
[2020-06-17 15:30] VITALS: BP 123/76
== END 2020-06-17 14:55 | disposition home or self-care (01) ==
LOC: ER 11:30
DX: J44.1 Chronic obstructive pulmonary disease with (acute) exacerbation (principal); G43.909 Migraine, unspecified, not intractable, without status migrainosus; I25.10 Atherosclerotic heart disease of native coronary artery without angina pectoris; I11.0 Hypertensive heart disease with heart failure; I50.9 Heart failure, unspecified; E78.00 Pure hypercholesterolemia, unspecified; I25.2 Old myocardial infarction; K21.9 Gastro-esophageal reflux disease without esophagitis; E11.9 Type 2 diabetes mellitus without complications; M19.90 Unspecified osteoarthritis, unspecified site; G47.30 Sleep apnea, unspecified; Z90.710 Acquired absence of both cervix and uterus; Z98.890 Other specified postprocedural states; Z95.5 Presence of coronary angioplasty implant and graft; Z88.7 Allergy status to serum and vaccine; Z88.8 Allergy status to other drugs, medicaments and biological substances; Z79.82 Long term (current) use of aspirin; Z79.4 Long term (current) use of insulin; Z79.899 Other long term (current) drug therapy
CPT/HCPCS: 36415; 71045; 80053; 83605; 83880; 84484; 85025; 87040; 93005; 94640; 96374; 99285; J2930; 94760

== ENCOUNTER 2020-07-14 12:14 | Inpatient (IN) | payer MEDICAID ==
[~2020-07-14] VITALS: Ht 160 cm; Wt 98.2 kg
[~2020-07-14 12:14] MED LIST changes: -PANT40TA4 PO; +PANT40TA54 PO
[2020-07-14] MEDS ORDERED: methylPREDNISolone sod succ 125mg/2ml vial IV ONE (12:30)
[2020-07-14] MEDS ORDERED: albuterol 2.5 MG/3 ML nebule NEB ONE (12:30)
[2020-07-14] MEDS ORDERED: ipratropium/albuterol 3ml nebule NEB ONE (12:30)
[2020-07-14 12:59] LABS: BASOPHILS % (AUTO) 0.4 % (0-1); EOSINOPHILS # (AUTO) 0.2 X10'3 (0-0.9); EOSINOPHILS % (AUTO) 1.5 % (0-6); HEMATOCRIT 37.4 % (35.0-45.0); HEMOGLOBIN 11.6 g/dl (12.0-16.0); LYMPHOCYTES # (AUTO) 1.8 X10'3 (1.1-4.8); LYMPHOCYTES % (AUTO) 16.2 % (21-51); MEAN CORPUSCULAR HEMOGLOBIN 25.2 PG (27.0-31.0); MEAN CORPUSCULAR HGB CONC 30.9 g/dL (33.0-36.5); MEAN CORPUSCULAR VOLUME 81.6 FL (78-98); MONOCYTES # (AUTO) 0.8 X10'3 (0-0.9); MONOCYTES % (AUTO) 7.5 % (2-12); NEUTROPHILS # (AUTO) 8.1 X10'3 (1.8-7.7); NEUTROPHILS % (AUTO) 74.4 % (42-75); PLATELET COUNT 292 X10'3 (140-440); RED BLOOD COUNT 4.58 X10'6 (4.20-5.60); RED CELL DISTRIBUTION WIDTH 19.1 % (11.5-14.5); WHITE BLOOD COUNT 10.9 X10'3 (4.5-11.0)
[2020-07-14 13:25] LABS: ALANINE AMINOTRANSFERASE 23 U/L (12-78); ALBUMIN 3.1 G/DL (3.4-5.0); ALBUMIN/GLOBULIN RATIO 0.9 (1.1-1.5); ALKALINE PHOSPHATASE 91 IU/L (46-116); ANION GAP 7 (8-16); ASPARTATE AMINO TRANSFERASE 13 U/L (10-37); BILIRUBIN,TOTAL 0.4 MG/DL (0.1-1.0); BLOOD UREA NITROGEN 9 MG/DL (7-18); CALCIUM 8.8 MG/DL (8.5-10.1); CHLORIDE 106 MMOL/L (99-107); CREATININE 0.75 MG/DL (0.40-0.90); GLUCOSE 204 MG/DL (70-104); POTASSIUM 4.4 MMOL/L (3.5-5.1); SODIUM 140 MMOL/L (135-145); TOTAL CARBON DIOXIDE 27.1 MMOL/L (24-32); TOTAL PROTEIN 6.7 G/DL (6.4-8.2); eGFR 78 ML/MIN
[2020-07-14] MEDS ORDERED: ondansetron/PF 4mg/2ml inj IV ONE (13:25)
[2020-07-14] MEDS: morphine 4 MG/ML inj SYRINge IV PRN ×4 (13:32→23:16)
[2020-07-14 13:38] LABS: PLATELET ESTIMATE NORMAL
[2020-07-14 13:39] LABS: ANISOCYTOSIS 2+; POLYCHROMASIA 1+; STOMATOCYTES 1+
[2020-07-14] MEDS ORDERED: levoFLOXACIN-Levaquin 500mg/D5 100 ML IV ONE (13:40)
[2020-07-14] MEDS ORDERED: NITR1PAT68 TD (14:04)
[2020-07-14] MEDS ORDERED: GABA-534 PO (14:04)
[2020-07-14] MEDS ORDERED: normal saline 1000ml 1,000 ML IV SCH (14:48)
[2020-07-14] MEDS ORDERED: acetaminophen 325mg tablet PO PRN (14:50)
[2020-07-14] MEDS ORDERED: ondansetron/PF 4mg/2ml inj IV PRN (14:50)
[2020-07-14] MEDS ORDERED: levoFLOXACIN-Levaquin 500mg/D5 100 ML IV SCH (14:50)
[2020-07-14] MEDS ORDERED: magnesium 2GM in 50ml NS 50 ML IV PRN (14:50)
[2020-07-14] MEDS ORDERED: magnesium Cl slow-release 64mg tablet PO PRN (14:50)
[2020-07-14] MEDS ORDERED: magnesium 4gm in 100ml NS 100 ML IV PRN (14:50)
[2020-07-14] MEDS ORDERED: potassium Cl 20 mEq SR tablet PO PRN ×2 (14:50)
[2020-07-14] MEDS ORDERED: potassium CL 10mEq/100ml bag 100 ML IV PRN ×2 (14:50)
--- NOTE | 2020-07-14 16:46 | NUR ---
TRIED TO CALL REPORT AND RN WAS UNAVALIABLE
--- NOTE | 2020-07-14 17:57 | NUR ---
promotional table spacer PAGER ID: [phone] MESSAGE: Emelia Ibrahim. Could you please clarify that you want the patient on hyperglycemic protocol. Martha [phone]
[2020-07-14 18:00] VITALS: BP 118/57
--- NOTE | 2020-07-14 18:28 | NUR ---
Problems reprioritized. Patient report given, questions answered & plan of care reviewed with Farnaz STAUFFER.
--- NOTE | 2020-07-14 18:30 | NUR ---
Patient wishes to be a full code and will discuss further options with MD and family tomorrow.
--- NOTE | 2020-07-14 18:39 | NUR ---
Patient in room PCU 3012. I have received report from Martha STAUFFER and had the opportunity to ask questions and assume patient care. Patient had just arrived from the ER and was resting comfortably during report.
--- NOTE | 2020-07-14 19:39 | NUR ---
Sent page to Dr. Cavazos- [id number] Milady Kapoor. Patient is asking for pain medication. Morphine isn't lasting long enough. She takes [place] 10 at home normally. Thank you. Nataliia STAUFFER ext. [phone]
[2020-07-14] MEDS: docusate sod 100mg capsule PO SCH (19:57)
[2020-07-14] MEDS: heparin, porcine 5000 units/ml vial SQ SCH (19:58)
[2020-07-14] MEDS: K and/or MAG REPLACEMENT MC SCH (20:00)
--- NOTE | 2020-07-14 21:56 | NUR ---
Page to Dr Cavazos- [id number] Milady Kapoor. Patient is experiencing SOB. No RT treatments are active. Nataliia STAUFFER ext. [phone]
[2020-07-14 22:00] VITALS: BP 133/84
[2020-07-14] MEDS ORDERED: LORazepam 0.5 MG tablet PO PRN (22:45)
[2020-07-14] MEDS ORDERED: LORazepam 2 mg/ml vial IV PRN (22:45)
[2020-07-14] MEDS: albuterol 2.5 MG/3 ML nebule NEB SCH (23:05)
[2020-07-14] MEDS: pantoprazole 40mg Tablet.DR PO SCH (23:15)
[2020-07-15 02:00] VITALS: BP 112/62
[2020-07-15] MEDS: morphine 4 MG/ML inj SYRINge IV PRN ×3 (02:11→08:29)
[2020-07-15] MEDS: albuterol 2.5 MG/3 ML nebule NEB SCH ×2 (03:23→07:02)
[2020-07-15 05:19] LABS: ALBUMIN 3.3 G/DL (3.4-5.0); ANION GAP 9 (8-16); BLOOD UREA NITROGEN 15 MG/DL (7-18); BUN/CREATININE RATIO 14.9 (6.6-38.0); CALCIUM 9.5 MG/DL (8.5-10.1); CHLORIDE 100 MMOL/L (99-107); CREATININE 1.01 MG/DL (0.40-0.90); GLUCOSE 149 MG/DL (70-104); MAGNESIUM 2.4 MG/DL (1.5-2.4); POTASSIUM 4.6 MMOL/L (3.5-5.1); SODIUM 139 MMOL/L (135-145); TOTAL CARBON DIOXIDE 30.2 MMOL/L (24-32); eGFR 55 ML/MIN
--- NOTE | 2020-07-15 05:25 | NUR ---
Sent page to Dr Cavazos- [id number] Milady Kapoor. Patient was asleep for 0400 RT treatment but would like one now because she is SOB. Can she have a PRN RT treatment? Nataliia STAUFFER ext. [phone]
[2020-07-15] MEDS ORDERED: albuterol 2.5 MG/3 ML nebule NEB ONE (05:30)
[2020-07-15 05:46] LABS: HEMOGLOBIN 12.3 g/dl (12.0-16.0); MONOCYTES # (AUTO) 0.3 X10'3 (0-0.9)
[2020-07-15 05:47] LABS: BASOPHILS % (AUTO) 0.3 % (0-1); EOSINOPHILS % (AUTO) 0 % (0-6); HEMATOCRIT 39.8 % (35.0-45.0); LYMPHOCYTES # (AUTO) 1.4 X10'3 (1.1-4.8); MEAN CORPUSCULAR HEMOGLOBIN 25.7 PG (27.0-31.0); MEAN CORPUSCULAR HGB CONC 30.9 g/dL (33.0-36.5); MEAN PLATELET VOLUME 7.4 FL (7.4-10.4); NEUTROPHILS # (AUTO) 8.3 X10'3 (1.8-7.7); NEUTROPHILS % (AUTO) 82.7 % (42-75); PLATELET COUNT 318 X10'3 (140-440); RED CELL DISTRIBUTION WIDTH 19.2 % (11.5-14.5); WHITE BLOOD COUNT 10.1 X10'3 (4.5-11.0)
[2020-07-15] MEDS ORDERED: insulin Lispro (HumaLOG) vial - multi-dose SQ SCH (05:50)
[2020-07-15] MEDS ORDERED: dextrose ORAL solution 15 GM/59 ML bottle PO PRN ×2 (05:50)
[2020-07-15] MEDS ORDERED: glucagon, human recombinant 1mg kit SUBCUT PRN (05:50)
[2020-07-15] MEDS ORDERED: MESSAGE TO PHARMACY PO ONE (05:50)
[2020-07-15] MEDS ORDERED: dextrose 50%-water 50ml dispensing syringe IV PRN ×2 (05:50)
--- NOTE | 2020-07-15 06:00 | NUR ---
Patient in room PCU 3012. I have received report from Farnaz STAUFFER and had the opportunity to ask questions and assume patient care.
[2020-07-15 07:00] VITALS: BP 145/79
[2020-07-15 07:47] LABS: ANISOCYTOSIS 2+; PLATELET ESTIMATE NORMAL
[2020-07-15 07:48] LABS: LARGE PLATELETS FEW
[2020-07-15] MEDS: K and/or MAG REPLACEMENT MC SCH (08:00)
[2020-07-15] MEDS ORDERED: levoFLOXACIN-Levaquin 500mg/D5 100 ML IV SCH (08:00)
[2020-07-15] MEDS: pantoprazole 40mg Tablet.DR PO SCH (08:28)
[2020-07-15] MEDS: heparin, porcine 5000 units/ml vial SQ SCH (08:28)
[2020-07-15] MEDS: docusate sod 100mg capsule PO SCH (08:28)
--- NOTE | 2020-07-15 08:43 | NUR ---
Page Sent promotional table spacer PAGER ID: [phone] MESSAGE: [id number] Emelia. Patient leaving AMA States she is done being here. She cannot take it anymore
--- NOTE | 2020-07-15 08:57 | NUR ---
Patient is leaving AMA. She did not really give me a good excuse. She said she just didn't want to be here anymore. Dr. Quarles was notified via page.
[2020-07-15] MEDS ORDERED: insulin glargine (Lantus) pen - multi-dose SQ SCH (21:00)
== END 2020-07-15 09:00 | disposition left against medical advice (07) | DRG 140 ==
LOC: ER 12:14 → ED HOLD 14:48 → EDBEDREQ 16:13 → PCU 3S 18:09
PROVIDERS: ADMIT Internal Medicine; ATTEND Internal Medicine
DX: J44.1 Chronic obstructive pulmonary disease with (acute) exacerbation (principal); E78.00 Pure hypercholesterolemia, unspecified; E78.5 Hyperlipidemia, unspecified; F17.210 Nicotine dependence, cigarettes, uncomplicated; G89.29 Other chronic pain; J96.01 Acute respiratory failure with hypoxia; F41.8 Other specified anxiety disorders; G43.909 Migraine, unspecified, not intractable, without status migrainosus; G47.30 Sleep apnea, unspecified; K21.9 Gastro-esophageal reflux disease without esophagitis; M10.9 Gout, unspecified; M19.90 Unspecified osteoarthritis, unspecified site; M54.9 Dorsalgia, unspecified; I11.0 Hypertensive heart disease with heart failure; I25.10 Atherosclerotic heart disease of native coronary artery without angina pectoris; I50.9 Heart failure, unspecified; E11.9 Type 2 diabetes mellitus without complications; Z53.29 Procedure and treatment not carried out because of patient's decision for other reasons; Z66 Do not resuscitate; Z79.02 Long term (current) use of antithrombotics/antiplatelets; Z79.4 Long term (current) use of insulin; Z79.82 Long term (current) use of aspirin; Z82.49 Family history of ischemic heart disease and other diseases of the circulatory system; I25.2 Old myocardial infarction; Z82.5 Family history of asthma and other chronic lower respiratory diseases; Z90.710 Acquired absence of both cervix and uterus; Z95.5 Presence of coronary angioplasty implant and graft; Z88.7 Allergy status to serum and vaccine; Z79.899 Other long term (current) drug therapy
CPT/HCPCS: 36415; 71045; 80048; 80053; 82948; 83036; 83735; 83880; 84484; 85008; 85025; 87070; 87081; 93005; 94640; 94760; 96361; 96374; 96375; 99285; G0378; J1644; J1815; J1956; J2270; J2405; J2930; J7030

== ENCOUNTER 2021-03-16 14:16 | Emergency (ER) | payer MEDICAID ==
[~2021-03-16] VITALS: Ht 162.6 cm; Wt 100.0 kg
[~2021-03-16 14:16] MED LIST changes: -CLON-514 PO; +CLON1TAB96 PO; +GABA-534 PO; -ISOS60TA4 PO; +ISOS60TA71 PO; +LOP25T PO; -METO25TA6 PO; +NITR1PAT68 TD
[2021-03-16 14:46] LABS: BASOPHILS # (AUTO) 0.1 X10'3 (0-0.2); BASOPHILS % (AUTO) 0.6 % (0-1); EOSINOPHILS # (AUTO) 0.2 X10'3 (0-0.9); EOSINOPHILS % (AUTO) 1.5 % (0-6); HEMATOCRIT 38.9 % (35.0-45.0); HEMOGLOBIN 12.3 g/dl (12.0-16.0); LYMPHOCYTES # (AUTO) 1.7 X10'3 (1.1-4.8); LYMPHOCYTES % (AUTO) 15.8 % (21-51); MEAN CORPUSCULAR HEMOGLOBIN 26.1 PG (27.0-31.0); MEAN CORPUSCULAR HGB CONC 31.5 g/dL (33.0-36.5); MEAN CORPUSCULAR VOLUME 82.7 FL (78-98); MEAN PLATELET VOLUME 6.8 FL (7.4-10.4); MONOCYTES # (AUTO) 0.6 X10'3 (0-0.9); MONOCYTES % (AUTO) 5.4 % (2-12); NEUTROPHILS # (AUTO) 8.1 X10'3 (1.8-7.7); NEUTROPHILS % (AUTO) 76.7 % (42-75); PLATELET COUNT 311 X10'3 (140-440); RED BLOOD COUNT 4.71 X10'6 (4.20-5.60); RED CELL DISTRIBUTION WIDTH 18.8 % (11.5-14.5); WHITE BLOOD COUNT 10.6 X10'3 (4.5-11.0)
[2021-03-16] MEDS ORDERED: HYDROcodone/acetaminophen 10/325mg tab PO ONE (14:50)
[2021-03-16 14:54] LABS: ALANINE AMINOTRANSFERASE 18 U/L (12-78); ALBUMIN 3.1 G/DL (3.4-5.0); ALBUMIN/GLOBULIN RATIO 0.8 (1.1-1.5); ALKALINE PHOSPHATASE 92 IU/L (46-116); ANION GAP 8 (8-16); ASPARTATE AMINO TRANSFERASE 16 U/L (10-37); BILIRUBIN,TOTAL 0.4 MG/DL (0.1-1.0); BLOOD UREA NITROGEN 7 MG/DL (7-18); BUN/CREATININE RATIO 10.6 (6.6-38.0); CALCIUM 8.6 MG/DL (8.5-10.1); CHLORIDE 103 MMOL/L (99-107); CREATININE 0.66 MG/DL (0.40-0.90); GLUCOSE 159 MG/DL (70-104); POTASSIUM 3.8 MMOL/L (3.5-5.1); SODIUM 141 MMOL/L (135-145); TOTAL CARBON DIOXIDE 30.5 MMOL/L (24-32); TOTAL PROTEIN 7.1 G/DL (6.4-8.2); eGFR 90 ML/MIN
[2021-03-16 15:37] LABS: ANISOCYTOSIS 2+; MICROCYTOSIS 1+; PLATELET ESTIMATE NORMAL; POLYCHROMASIA 1+
[2021-03-16 15:38] LABS: D-DIMER 0.64 MG/L FEU (0-0.50)
[2021-03-16] MEDS ORDERED: morphine 4 MG/ML inj SYRINge IM ONE (16:40)
[2021-03-16 18:21] VITALS: BP 113/79
== END 2021-03-16 18:23 | disposition home or self-care (01) ==
LOC: ER 14:17
DX: R07.89 Other chest pain (principal); R05 Cough; R22.41 Localized swelling, mass and lump, right lower limb; G43.909 Migraine, unspecified, not intractable, without status migrainosus; I25.10 Atherosclerotic heart disease of native coronary artery without angina pectoris; E78.00 Pure hypercholesterolemia, unspecified; I11.0 Hypertensive heart disease with heart failure; I50.9 Heart failure, unspecified; I25.2 Old myocardial infarction; J44.9 Chronic obstructive pulmonary disease, unspecified; G47.30 Sleep apnea, unspecified; K21.9 Gastro-esophageal reflux disease without esophagitis; E11.9 Type 2 diabetes mellitus without complications; M19.90 Unspecified osteoarthritis, unspecified site; G89.29 Other chronic pain; F41.9 Anxiety disorder, unspecified; F32.9 Major depressive disorder, single episode, unspecified; Z90.710 Acquired absence of both cervix and uterus; Z98.61 Coronary angioplasty status; Z98.890 Other specified postprocedural states; Z87.891 Personal history of nicotine dependence; Z88.7 Allergy status to serum and vaccine; Z88.6 Allergy status to analgesic agent; Z79.899 Other long term (current) drug therapy
CPT/HCPCS: 36415; 71046; 80053; 83880; 84484; 85008; 85025; 85379; 93005; 96372; 99285; J2270

== ENCOUNTER 2021-04-09 13:34 | Inpatient (IN) | payer MEDICAID ==
[~2021-04-09] VITALS: Ht 162.6 cm; Wt 100.0 kg
[2021-04-09] MEDS ORDERED: normal saline 1000ML IV soln IVB ONE (14:10)
[2021-04-09 14:15] LABS: BASOPHILS % (AUTO) 0.5 % (0-1); EOSINOPHILS # (AUTO) 0.1 X10'3 (0-0.9); EOSINOPHILS % (AUTO) 0.7 % (0-6); HEMATOCRIT 38.3 % (35.0-45.0); HEMOGLOBIN 11.9 g/dl (12.0-16.0); MEAN CORPUSCULAR HEMOGLOBIN 25.7 PG (27.0-31.0); MEAN CORPUSCULAR VOLUME 82.9 FL (78-98); MEAN PLATELET VOLUME 6.6 FL (7.4-10.4); MONOCYTES # (AUTO) 0.5 X10'3 (0-0.9); MONOCYTES % (AUTO) 5.8 % (2-12); NEUTROPHILS # (AUTO) 6.8 X10'3 (1.8-7.7); PLATELET COUNT 318 X10'3 (140-440); RED BLOOD COUNT 4.63 X10'6 (4.20-5.60); RED CELL DISTRIBUTION WIDTH 18.1 % (11.5-14.5); WHITE BLOOD COUNT 8.3 X10'3 (4.5-11.0)
[2021-04-09 14:32] LABS: ALANINE AMINOTRANSFERASE 15 U/L (12-78); ALBUMIN 2.9 G/DL (3.4-5.0); ALBUMIN/GLOBULIN RATIO 0.7 (1.1-1.5); ALKALINE PHOSPHATASE 82 IU/L (46-116); ANION GAP 9 (8-16); ASPARTATE AMINO TRANSFERASE 12 U/L (10-37); BILIRUBIN,TOTAL 0.4 MG/DL (0.1-1.0); BLOOD UREA NITROGEN 9 MG/DL (7-18); BUN/CREATININE RATIO 11.1 (6.6-38.0); CALCIUM 8.5 MG/DL (8.5-10.1); CHLORIDE 105 MMOL/L (99-107); CREATININE 0.81 MG/DL (0.40-0.90); GLUCOSE 180 MG/DL (70-104); SODIUM 141 MMOL/L (135-145); TOTAL CARBON DIOXIDE 26.8 MMOL/L (24-32); eGFR 71 ML/MIN
[2021-04-09] MEDS ORDERED: ipratropium/albuterol 3ml nebule NEB ONE (14:45)
[2021-04-09] MEDS ORDERED: albuterol 2.5 MG/3 ML nebule CONTNEB PRN (15:15)
[2021-04-09] MEDS ORDERED: HYDROcodone/acetaminophen 5mg/325mg tablet PO ONE ×2 (15:15→17:20)
[2021-04-09 15:22] LABS: PARTIAL THROMBOPLASTIN TIME 28 SECONDS (22-32)
--- NOTE | 2021-04-09 16:50 | NUR ---
breaking primary nurse at this time.rt at bedside.
[2021-04-09 16:59] LABS: ABG BASE EXCESS 2.3 mmol/L (-2.0-2.0); ABG HCO3 27.2 mmol/L (22.0-26.0); ABG OXYGEN SATURATION 94.6 % (94-97); ABG PCO2 (T) 43.5 mmHg (32.0-45.0); ABG PO2 (T) 76.2 mmHg (75.0-100.0); ALLEN'S TEST POSITIVE; FCOHb 4.1 % (0.0-3.9); FLOW 3 L/min; FMetHb 0.1 % (0.0-1.5); FO2Hb 90.6 % (94-97); TOTAL HEMOGLOBIN 12.1 G/dl (12.0-16.0)
--- NOTE | 2021-04-09 16:59 | NUR ---
pt c/o chest pressure,pt stated that she has recevied norco 5 mg 90 mins ago. " It doesn't work for me i usually take 10 mg of norco but rgt now i need something stronger than norco".as per aileen donohue whe will ask jeremy chinchilla to talk to the pt.
--- NOTE | 2021-04-09 17:02 | NUR ---
dr chinchilla at bedside.
[2021-04-09] MEDS ORDERED: LORazepam 2 mg/ml vial IV ONE (17:45)
[2021-04-09] MEDS ORDERED: GABA600T13 PO (17:49)
[2021-04-09] MEDS ORDERED: TIOT18CA3 INH (17:49)
[2021-04-09] MEDS ORDERED: MELO-102 PO (17:49)
[2021-04-09] MEDS ORDERED: CARB-226 EACHEYE (17:49)
[2021-04-09] MEDS ORDERED: BUDE10.7 PO (17:49)
[2021-04-09] MEDS ORDERED: CLON-369 PO (17:49)
[2021-04-09] MEDS ORDERED: IPRA3AMP31 (17:49)
--- NOTE | 2021-04-09 17:53 | NUR ---
PT REFUSED BIPAP
[2021-04-09] MEDS ORDERED: MESSAGE TO PHARMACY PO ONE (20:35)
[2021-04-09] MEDS ORDERED: dextrose ORAL solution 15 GM/59 ML bottle PO PRN ×2 (20:35)
[2021-04-09] MEDS ORDERED: glucagon, human recombinant 1mg kit SUBCUT PRN (20:35)
[2021-04-09] MEDS ORDERED: dextrose 50%-water 50ml dispensing syringe IV PRN ×2 (20:35)
[2021-04-09] MEDS ORDERED: CefTRIAXone/D5W-Rocephin 1gm 50 ML IV SCH (20:50)
[2021-04-09] MEDS: insulin glargine (Lantus) pen - multi-dose SQ SCH (21:00)
[2021-04-09] MEDS ORDERED: temazepam 15mg capsule PO PRN (21:00)
[2021-04-09] MEDS: gabapentin 300mg capsule PO SCH (21:04)
[2021-04-09] MEDS: azithromycin/NS 500mg/250ml 250 ML IV SCH (21:04)
[2021-04-09] MEDS ORDERED: bisacodyl 10mg suppository rectal RC PRN (21:10)
[2021-04-09] MEDS ORDERED: mag hydrox/Alum hydrox/simeth 30ml oral suspension PO PRN (21:10)
[2021-04-09] MEDS ORDERED: magnesium hydroxide 30ml (MOM) UD suspension PO PRN (21:10)
[2021-04-09] MEDS ORDERED: ondansetron/PF 4mg/2ml inj IV PRN (21:10)
[2021-04-09] MEDS ORDERED: HYDROcodone/acetaminophen 5mg/325mg tablet PO PRN (21:10)
[2021-04-09] MEDS ORDERED: diphenhydrAMINE 50 mg/ml inj IV PRN (21:10)
[2021-04-09] MEDS ORDERED: acetaminophen 325mg tablet PO PRN ×2 (21:10)
[2021-04-09] MEDS ORDERED: acetaminophen 650mg rectal suppository RC PRN (21:10)
[2021-04-09] MEDS ORDERED: HYDROcodone/acetaminophen 10/325mg tab PO PRN (21:10)
[2021-04-09] MEDS ORDERED: HYDROmorphone inj. 0.5 MG/0.5 ML DISP.SYRIN IV PRN (21:10)
[2021-04-09] MEDS ORDERED: diphenhydrAMINE 25mg capsule PO PRN (21:10)
[2021-04-09] MEDS ORDERED: morphine 2 MG/ML inj. syringe IV PRN (21:10)
[2021-04-09 21:31] LABS: LIPASE < 50 U/L (73-393); MAGNESIUM 2.1 MG/DL (1.5-2.4); PHOSPHORUS 3.8 MG/DL (2.3-4.5)
[2021-04-09 22:09] LABS: D-DIMER 0.79 MG/L FEU (0-0.50)
--- NOTE | 2021-04-09 22:10 | NUR ---
Pt arrrived in the unit via ana. Pt is SOB and is wheezing. Respiratory therapist notified for breathing tx. Pt oriented in the room, call rollins & water pitcher within reach. Placed Tele monitor. Nasal swab for MRSA collected & blood sugar checked. Snacks given to pt.
[2021-04-09 22:20] VITALS: BP 144/63
--- NOTE | 2021-04-09 22:29 | NUR ---
Paged RT. Pt in 1126G [place] 65 F is having SOB and is wheezing. O2 sat is 92% at 4 L of O2 via NC. Can she have a breathing tx? Thanks!..Luz Maria x [phone]
[2021-04-09] MEDS: HYDROcodone/acetaminophen 10/325mg tab PO PRN (22:38)
[2021-04-09] MEDS: ipratropium/albuterol 3ml nebule NEB SCH (23:10)
[2021-04-09] MEDS: albuterol 2.5 MG/3 ML nebule NEB SCH (23:10)
[2021-04-10] MEDS: heparin, porcine 5000 units/ml vial SQ SCH ×4 (00:31→23:47)
[2021-04-10] MEDS: morphine 2 MG/ML inj. syringe IV PRN ×5 (01:48→20:35)
[2021-04-10 02:00] VITALS: BP 138/62
--- NOTE | 2021-04-10 02:07 | NUR ---
Paged RT. Pt in 0869H Milady Kapoor 65 F is requesting for breathing tx. Thanks ! Luz Maria x [phone]
[2021-04-10] MEDS: ipratropium/albuterol 3ml nebule NEB SCH ×6 (02:26→23:09)
[2021-04-10] MEDS: albuterol 2.5 MG/3 ML nebule NEB SCH ×2 (03:10→07:20)
[2021-04-10 04:56] LABS: BASOPHILS % (AUTO) 0.4 % (0-1); EOSINOPHILS # (AUTO) 0.2 X10'3 (0-0.9); EOSINOPHILS % (AUTO) 2.9 % (0-6); HEMOGLOBIN 11.1 g/dl (12.0-16.0); LYMPHOCYTES # (AUTO) 1.6 X10'3 (1.1-4.8); LYMPHOCYTES % (AUTO) 19.9 % (21-51); MEAN CORPUSCULAR HEMOGLOBIN 25.7 PG (27.0-31.0); MEAN CORPUSCULAR VOLUME 82.9 FL (78-98); MEAN PLATELET VOLUME 6.8 FL (7.4-10.4); MONOCYTES # (AUTO) 0.7 X10'3 (0-0.9); NEUTROPHILS # (AUTO) 5.7 X10'3 (1.8-7.7); NEUTROPHILS % (AUTO) 68.8 % (42-75); PLATELET COUNT 290 X10'3 (140-440); RED BLOOD COUNT 4.34 X10'6 (4.20-5.60); RED CELL DISTRIBUTION WIDTH 17.9 % (11.5-14.5); WHITE BLOOD COUNT 8.3 X10'3 (4.5-11.0)
[2021-04-10 05:12] LABS: ALANINE AMINOTRANSFERASE 18 U/L (12-78); ALBUMIN 2.7 G/DL (3.4-5.0); ALBUMIN/GLOBULIN RATIO 0.7 (1.1-1.5); ALKALINE PHOSPHATASE 69 IU/L (46-116); ANION GAP 5 (8-16); ASPARTATE AMINO TRANSFERASE 12 U/L (10-37); BILIRUBIN,TOTAL 0.3 MG/DL (0.1-1.0); BLOOD UREA NITROGEN 10 MG/DL (7-18); BUN/CREATININE RATIO 15.9 (6.6-38.0); CALCIUM 8.3 MG/DL (8.5-10.1); CHLORIDE 107 MMOL/L (99-107); CREATININE 0.63 MG/DL (0.40-0.90); GLUCOSE 121 MG/DL (70-104); SODIUM 142 MMOL/L (135-145); TOTAL PROTEIN 6.5 G/DL (6.4-8.2); eGFR > 90 ML/MIN
[2021-04-10 05:14] LABS: CHOL/HDL RATIO 4.8 (0.00-4.99); CHOLESTEROL 114 MG/DL (0-200); HDL CHOLESTEROL 24 MG/DL (35-60); LDL CHOLESTEROL 65 MG/DL (50-100); TRIGLYCERIDES 114 MG/DL (20-135)
[2021-04-10 06:00] VITALS: BP 134/66
--- NOTE | 2021-04-10 06:18 | NUR ---
Problems reprioritized. Patient report given, questions answered & plan of care reviewed with EH Flanagan.
[2021-04-10] MEDS: gabapentin 300mg capsule PO SCH ×3 (07:48→20:35)
[2021-04-10] MEDS: docusate sod 100mg capsule PO SCH ×2 (07:49→08:00)
[2021-04-10] MEDS: metoprolol tartrate 25mg tablet PO SCH ×2 (07:49→19:20)
[2021-04-10] MEDS: allopurinol 100mg tablet PO SCH (07:53)
[2021-04-10] MEDS: aspirin 81mg tablet.DR PO SCH (07:54)
[2021-04-10] MEDS: lisinopril 10 MG tablet PO SCH (07:54)
[2021-04-10] MEDS: pantoprazole 40mg Tablet.DR PO SCH (07:54)
[2021-04-10] MEDS: isosorbide mononitrate 30mg tab.SR.24H PO SCH (07:55)
[2021-04-10] MEDS: nicotine 21mg patch - 24 hr TD SCH (07:55)
[2021-04-10] MEDS: atorvastatin 10mg tablet PO SCH (07:55)
[2021-04-10] MEDS: clopidogrel 75mg tablet PO SCH (07:55)
[2021-04-10] MEDS: methylPREDNISolone sod succ 125mg/2ml vial IV SCH ×2 (08:00→19:20)
[2021-04-10] MEDS ORDERED: furosemide 20 MG/2 ML vial IV SCH (08:00)
[2021-04-10] MEDS ORDERED: duloxetine 30mg CAPSULE.DR PO SCH (08:00)
[2021-04-10] MEDS ORDERED: nitroGLYCERIN 0.4mg SUBLingual tab SL PRN (09:15)
[2021-04-10] MEDS ORDERED: aminophylline 250mg/10ml inj. IV PRN (09:15)
[2021-04-10] MEDS ORDERED: metoprolol tartrate 1mg/ml inj IV PRN (09:15)
[2021-04-10] MEDS ORDERED: regadenoson 0.4mg/5ml syringe IV ONE (09:15)
[2021-04-10] MEDS: nitroGLYCERIN 0.2mg/hour patch TD SCH (10:11)
[2021-04-10 11:00] VITALS: BP 133/77
--- NOTE | 2021-04-10 12:00 | NUR ---
DM consult: Pt with A1c 7.0%, down from 7.5% in July of last year per records. DM education with RD contact information placed in patient's chart. Will continue to follow. Addendum: 04/10/21 at [address] Amended: Links added.
[2021-04-10] MEDS: clonazePAM 0.5mg tablet PO PRN (14:23)
[2021-04-10 15:00] VITALS: BP 97/58
[2021-04-10 18:00] VITALS: BP 107/64
--- NOTE | 2021-04-10 18:23 | NUR ---
Problems reprioritized. Patient report given, questions answered & plan of care reviewed with EH Loera.
[2021-04-10] MEDS: lactobacillus rhamnosus 10,000 MMU CELLS/CAPSULE PO SCH (19:20)
[2021-04-10] MEDS: insulin Lispro (HumaLOG) vial - multi-dose SQ SCH (19:30)
[2021-04-10] MEDS: azithromycin/NS 500mg/250ml 250 ML IV SCH (20:34)
[2021-04-10] MEDS: insulin glargine (Lantus) pen - multi-dose SQ SCH (21:54)
[2021-04-10 22:00] VITALS: BP 123/55
[2021-04-11] VITALS (16 sets, daily range): BP systolic 114–147; BP diastolic 65–96
[2021-04-11] MEDS: morphine 2 MG/ML inj. syringe IV PRN ×5 (00:50→19:56)
[2021-04-11] MEDS: ipratropium/albuterol 3ml nebule NEB SCH ×6 (02:55→23:16)
--- NOTE | 2021-04-11 06:16 | NUR ---
Problems reprioritized. Patient report given, questions answered & plan of care reviewed with EH Flanagan.
--- NOTE | 2021-04-11 06:38 | NUR ---
Patient in room PCU 3023. I have received report from EH Loera and had the opportunity to ask questions and assume patient care.
[2021-04-11 06:50] LABS: BASOPHILS % (AUTO) 0.1 % (0-1); EOSINOPHILS % (AUTO) 0 % (0-6); HEMATOCRIT 38.3 % (35.0-45.0); LYMPHOCYTES # (AUTO) 0.8 X10'3 (1.1-4.8); LYMPHOCYTES % (AUTO) 11.9 % (21-51); MEAN CORPUSCULAR HEMOGLOBIN 25.8 PG (27.0-31.0); MEAN CORPUSCULAR HGB CONC 31.3 g/dL (33.0-36.5); MEAN CORPUSCULAR VOLUME 82.2 FL (78-98); MONOCYTES # (AUTO) 0.1 X10'3 (0-0.9); MONOCYTES % (AUTO) 1.9 % (2-12); NEUTROPHILS # (AUTO) 5.4 X10'3 (1.8-7.7); NEUTROPHILS % (AUTO) 86.1 % (42-75); PLATELET COUNT 313 X10'3 (140-440); RED BLOOD COUNT 4.65 X10'6 (4.20-5.60); RED CELL DISTRIBUTION WIDTH 17.5 % (11.5-14.5); WHITE BLOOD COUNT 6.3 X10'3 (4.5-11.0)
[2021-04-11 07:17] LABS: ALANINE AMINOTRANSFERASE 17 U/L (12-78); ALBUMIN/GLOBULIN RATIO 0.7 (1.1-1.5); ALKALINE PHOSPHATASE 72 IU/L (46-116); ANION GAP 6 (8-16); ASPARTATE AMINO TRANSFERASE 11 U/L (10-37); BILIRUBIN,TOTAL 0.4 MG/DL (0.1-1.0); BLOOD UREA NITROGEN 24 MG/DL (7-18); BUN/CREATININE RATIO 34.8 (6.6-38.0); CALCIUM 9.3 MG/DL (8.5-10.1); CHLORIDE 105 MMOL/L (99-107); CREATININE 0.69 MG/DL (0.40-0.90); GLUCOSE 162 MG/DL (70-104); POTASSIUM 4.5 MMOL/L (3.5-5.1); SODIUM 141 MMOL/L (135-145); TOTAL CARBON DIOXIDE 29.9 MMOL/L (24-32); TOTAL PROTEIN 7.3 G/DL (6.4-8.2); eGFR 86 ML/MIN
[2021-04-11] MEDS: isosorbide mononitrate 30mg tab.SR.24H PO SCH (08:31)
[2021-04-11] MEDS: heparin, porcine 5000 units/ml vial SQ SCH ×2 (08:31→16:00)
[2021-04-11] MEDS: metoprolol tartrate 25mg tablet PO SCH ×2 (08:31→20:56)
[2021-04-11] MEDS: pantoprazole 40mg Tablet.DR PO SCH (11:01)
[2021-04-11] MEDS: allopurinol 100mg tablet PO SCH (11:02)
[2021-04-11] MEDS: clopidogrel 75mg tablet PO SCH (11:02)
[2021-04-11] MEDS: lisinopril 10 MG tablet PO SCH (11:02)
[2021-04-11] MEDS: gabapentin 300mg capsule PO SCH ×3 (11:02→20:56)
[2021-04-11] MEDS: duloxetine 30mg CAPSULE.DR PO SCH (11:02)
[2021-04-11] MEDS: atorvastatin 10mg tablet PO SCH (11:03)
[2021-04-11] MEDS: aspirin 81mg tablet.DR PO SCH (11:03)
[2021-04-11] MEDS: lactobacillus rhamnosus 10,000 MMU CELLS/CAPSULE PO SCH ×2 (11:03→20:56)
[2021-04-11] MEDS: methylPREDNISolone sod succ 125mg/2ml vial IV SCH ×2 (11:04→20:56)
[2021-04-11] MEDS: nicotine 21mg patch - 24 hr TD SCH (11:18)
[2021-04-11] MEDS: nitroGLYCERIN 0.2mg/hour patch TD SCH (11:18)
--- NOTE | 2021-04-11 11:21 | NUR ---
notified. PAGER ID: [phone] MESSAGE: Re: Milady Kapoor. [id number]. Abnormal stress test resulted. Thanks. Masha. [phone].
--- NOTE | 2021-04-11 16:24 | NUR ---
2MG OF MORPHINE IV ADMINISTERED BY MILAN HENNESSY TO PT AT 1100. MEDICATION WAS SCANNED BUT NOT SAVED BY THE COMPUTER. ADMINISTRATION HAS BEEN REVIEWED BY MYSELF, MONTY MA CHARGE NURSE, AND I AGREE WITH MILAN HENNESSY'S ADMINISTRATION NOTE/PROCESS.
--- NOTE | 2021-04-11 16:24 | NUR ---
Morphine 2mg was given by RN at 1100. Scanned but did not save. Reviewed by Yang Plunkett RN.
--- NOTE | 2021-04-11 17:40 | NUR ---
notified. PAGER ID: [phone] MESSAGE: Re: Milady Kapoor. [phone]. Patient feels and wants to be DC'd tonight. Cardiology has already consulted. Pt. requests steroids and abx's. Thanks. Masha. [phone].
[2021-04-11] MEDS: clonazePAM 0.5mg tablet PO PRN (17:51)
--- NOTE | 2021-04-11 18:11 | NUR ---
Problems reprioritized. Patient report given, questions answered & plan of care reviewed with EH Roberts.
--- NOTE | 2021-04-11 18:15 | NUR ---
Patient in room PCU 3023. I have received report from Masha STAUFFER and had the opportunity to ask questions and assume patient care.
[2021-04-11] MEDS: insulin Lispro (HumaLOG) vial - multi-dose SQ SCH ×2 (19:55→23:18)
[2021-04-11] MEDS: azithromycin/NS 500mg/250ml 250 ML IV SCH (20:55)
[2021-04-11] MEDS: insulin glargine (Lantus) pen - multi-dose SQ SCH (23:20)
[2021-04-12] MEDS: morphine 2 MG/ML inj. syringe IV PRN (00:03)
[2021-04-12 02:00] VITALS: BP 128/87
[2021-04-12] MEDS: ipratropium/albuterol 3ml nebule NEB SCH (02:51)
--- NOTE | 2021-04-12 04:54 | NUR ---
Orientee Medication Administration: For this medication-pass time frame, all medication were reviewed, dispensed, administered and documented per hospital policy by Michell STAUFFER under my supervision.
--- NOTE | 2021-04-12 04:54 | NUR ---
Student documentation: I have reviewed and agree with all interventions, assessments performed and documented by Michell STAUFFER.
[2021-04-12] MEDS: HYDROcodone/acetaminophen 10/325mg tab PO PRN ×2 (05:03→09:23)
[2021-04-12 06:00] VITALS: BP 139/79
--- NOTE | 2021-04-12 06:36 | NUR ---
Problems reprioritized. Patient report given, questions answered & plan of care reviewed with Masha STAUFFER.
[2021-04-12 07:12] LABS: BASOPHILS % (AUTO) 0.1 % (0-1); EOSINOPHILS % (AUTO) 0.1 % (0-6); HEMATOCRIT 36.8 % (35.0-45.0); HEMOGLOBIN 11.5 g/dl (12.0-16.0); LYMPHOCYTES # (AUTO) 0.7 X10'3 (1.1-4.8); LYMPHOCYTES % (AUTO) 14.2 % (21-51); MEAN CORPUSCULAR HEMOGLOBIN 25.5 PG (27.0-31.0); MEAN CORPUSCULAR HGB CONC 31.2 g/dL (33.0-36.5); MEAN CORPUSCULAR VOLUME 81.7 FL (78-98); MONOCYTES # (AUTO) 0.1 X10'3 (0-0.9); MONOCYTES % (AUTO) 2.4 % (2-12); NEUTROPHILS # (AUTO) 4.2 X10'3 (1.8-7.7); NEUTROPHILS % (AUTO) 83.2 % (42-75); PLATELET COUNT 325 X10'3 (140-440); RED CELL DISTRIBUTION WIDTH 17.6 % (11.5-14.5)
[2021-04-12 07:20] LABS: ALANINE AMINOTRANSFERASE 18 U/L (12-78); ALBUMIN/GLOBULIN RATIO 0.8 (1.1-1.5); ALKALINE PHOSPHATASE 64 IU/L (46-116); ANION GAP 7 (8-16); ASPARTATE AMINO TRANSFERASE 11 U/L (10-37); BILIRUBIN,TOTAL 0.3 MG/DL (0.1-1.0); BLOOD UREA NITROGEN 25 MG/DL (7-18); CHLORIDE 103 MMOL/L (99-107); CREATININE 0.61 MG/DL (0.40-0.90); GLUCOSE 173 MG/DL (70-104); POTASSIUM 4.2 MMOL/L (3.5-5.1); SODIUM 139 MMOL/L (135-145); TOTAL CARBON DIOXIDE 29.4 MMOL/L (24-32); eGFR > 90 ML/MIN
[2021-04-12] MEDS: lactobacillus rhamnosus 10,000 MMU CELLS/CAPSULE PO SCH (07:42)
[2021-04-12] MEDS: isosorbide mononitrate 30mg tab.SR.24H PO SCH (07:42)
[2021-04-12] MEDS: metoprolol tartrate 25mg tablet PO SCH (07:42)
[2021-04-12] MEDS: clopidogrel 75mg tablet PO SCH (07:42)
[2021-04-12 07:43] VITALS: BP_SYST 139
[2021-04-12] MEDS: duloxetine 30mg CAPSULE.DR PO SCH (07:43)
[2021-04-12] MEDS: lisinopril 10 MG tablet PO SCH (07:43)
[2021-04-12] MEDS: gabapentin 300mg capsule PO SCH (07:43)
[2021-04-12] MEDS: pantoprazole 40mg Tablet.DR PO SCH (07:43)
[2021-04-12] MEDS: allopurinol 100mg tablet PO SCH (07:44)
[2021-04-12] MEDS: atorvastatin 10mg tablet PO SCH (07:44)
[2021-04-12] MEDS: aspirin 81mg tablet.DR PO SCH (07:44)
[2021-04-12] MEDS: nitroGLYCERIN 0.2mg/hour patch TD SCH (07:45)
[2021-04-12] MEDS: nicotine 21mg patch - 24 hr TD SCH (07:45)
[2021-04-12] MEDS: heparin, porcine 5000 units/ml vial SQ SCH ×2 (07:50)
[2021-04-12] MEDS: methylPREDNISolone sod succ 125mg/2ml vial IV SCH (08:00)
[2021-04-12] MEDS ORDERED: NICO-687 TD (08:44)
[2021-04-12] MEDS ORDERED: ATOR10TA PO (08:44)
--- NOTE | 2021-04-12 10:00 | NUR ---
Patient stable for discharge per md orders. NO iv access. Personal belongings gathered up and given to patient. Patient dressed self. Strict return precautions, education, and follow up given. Prescriptions called in [facility] [address]. Patient assisted into wheelchair and taken down to lobby by Jeremy FAJARDO. Patient seen leaving premises in private vehicle.
== END 2021-04-12 10:15 | disposition home or self-care (01) | DRG 140 ==
LOC: ER 13:34 → ED HOLD 21:10 → PCU 3S 22:10
PROVIDERS: ADMIT Family Medicine; ATTEND Internal Medicine
PROC: 4A02XM4 Measurement of Cardiac Total Activity, External Approach (ICD-10-PCS; principal; 2021-04-11)
PROC: 3E073KZ Introduction of Other Diagnostic Substance into Coronary Artery, Percutaneous Approach (ICD-10-PCS; 2021-04-11)
DX: J44.1 Chronic obstructive pulmonary disease with (acute) exacerbation (principal); I50.33 Acute on chronic diastolic (congestive) heart failure; E11.51 Type 2 diabetes mellitus with diabetic peripheral angiopathy without gangrene; E11.65 Type 2 diabetes mellitus with hyperglycemia; I11.0 Hypertensive heart disease with heart failure; E78.00 Pure hypercholesterolemia, unspecified; E78.5 Hyperlipidemia, unspecified; L02.92 Furuncle, unspecified; F17.210 Nicotine dependence, cigarettes, uncomplicated; G89.4 Chronic pain syndrome; I25.10 Atherosclerotic heart disease of native coronary artery without angina pectoris; K21.9 Gastro-esophageal reflux disease without esophagitis; L03.317 Cellulitis of buttock; M1A.9XX0 Chronic gout, unspecified, without tophus (tophi); G43.909 Migraine, unspecified, not intractable, without status migrainosus; M94.0 Chondrocostal junction syndrome [Tietze]; F32.9 Major depressive disorder, single episode, unspecified; F41.9 Anxiety disorder, unspecified; L02.31 Cutaneous abscess of buttock; G47.33 Obstructive sleep apnea (adult) (pediatric); M19.90 Unspecified osteoarthritis, unspecified site; R94.39 Abnormal result of other cardiovascular function study; M54.9 Dorsalgia, unspecified; R06.03 Acute respiratory distress; I25.2 Old myocardial infarction; Z79.891 Long term (current) use of opiate analgesic; Z79.899 Other long term (current) drug therapy; Z82.49 Family history of ischemic heart disease and other diseases of the circulatory system; Z82.5 Family history of asthma and other chronic lower respiratory diseases; Z83.3 Family history of diabetes mellitus; Z90.710 Acquired absence of both cervix and uterus; Z95.5 Presence of coronary angioplasty implant and graft; Z88.8 Allergy status to other drugs, medicaments and biological substances; Z71.6 Tobacco abuse counseling
CPT/HCPCS: 36415; 36600; 71046; 78452; 80053; 80061; 82803; 82948; 83036; 83605; 83690; 83735; 83880; 84100; 84145; 84443; 84484; 85018; 85025; 85379; 85610; 85730; 87040; 87081; 93005; 93017; 93306; 93971; 94640; 94760; 96361; 96365; 96375; 99285; A7015; A9500; G0378; J0280; J0456; J0696; J1644; J1815; J1940; J2060; J2270; J2785; J2930; J7030

== ENCOUNTER 2021-06-04 16:13 | Emergency (ER) | payer MEDICAID ==
[~2021-06-04] VITALS: Ht 160 cm; Wt 100.0 kg
[~2021-06-04 16:13] MED LIST changes: +ATOR10TA PO; -BUDE10.26 PO; +BUDE10.7 PO; +CARB-226 EACHEYE; +CLON-369 PO; -CLON1TAB96 PO; -GABA-534 PO; +GABA600T13 PO; +IPRA3AMP31; +LIDOcaine 1% W/epiNEPHrine 1:100,000 20ml vial ONE; +NICO-687 TD; -NITR1PAT68 TD; -SIMV-42 PO; +TIOT18CA3 INH; -TIZA4TAB5 PO
[2021-06-04 16:20] VITALS: BP 131/91
[2021-06-04] MEDS ORDERED: LIDOcaine 1% W/epiNEPHrine 1:200,000 10ml vial IJ ONE (17:20)
[2021-06-04] MEDS ORDERED: HYDROcodone/acetaminophen 5mg/325mg tablet PO ONE (18:30)
[2021-06-04] MEDS ORDERED: ondansetron 4mg rapidly disintigrating tab PO ONE (18:30)
[2021-06-04] MEDS ORDERED: CEPH250T PO (18:30)
[2021-06-04] MEDS ORDERED: SULF1TAB45 PO (18:30)
== END 2021-06-04 18:43 | disposition home or self-care (01) ==
LOC: ER 16:14
DX: L02.214 Cutaneous abscess of groin (principal); R10.31 Right lower quadrant pain; G89.29 Other chronic pain; G43.909 Migraine, unspecified, not intractable, without status migrainosus; I25.10 Atherosclerotic heart disease of native coronary artery without angina pectoris; I11.0 Hypertensive heart disease with heart failure; I50.9 Heart failure, unspecified; I25.2 Old myocardial infarction; J44.9 Chronic obstructive pulmonary disease, unspecified; K21.9 Gastro-esophageal reflux disease without esophagitis; M19.90 Unspecified osteoarthritis, unspecified site; F41.9 Anxiety disorder, unspecified; F32.9 Major depressive disorder, single episode, unspecified; Z87.01 Personal history of pneumonia (recurrent); Z90.710 Acquired absence of both cervix and uterus; Z98.890 Other specified postprocedural states; Z95.1 Presence of aortocoronary bypass graft; Z88.7 Allergy status to serum and vaccine; Z88.6 Allergy status to analgesic agent; Z88.8 Allergy status to other drugs, medicaments and biological substances; Z79.82 Long term (current) use of aspirin; Z79.2 Long term (current) use of antibiotics; Z79.4 Long term (current) use of insulin; Z79.899 Other long term (current) drug therapy
CPT/HCPCS: 10060; 99283

== ENCOUNTER 2021-07-10 13:56 | Emergency (ER) | payer MEDICAID ==
[~2021-07-10] VITALS: Ht 162.6 cm; Wt 97.7 kg
[~2021-07-10 13:56] MED LIST changes: -LIDOcaine 1% W/epiNEPHrine 1:100,000 20ml vial ONE
[2021-07-10] MEDS ORDERED: HYDROcodone/acetaminophen 10/325mg tab PO ONE (15:50)
[2021-07-10] MEDS ORDERED: proCHLORperazine 10mg tablet PO ONE (15:50)
[2021-07-10] MEDS ORDERED: diphenhydrAMINE 25mg capsule PO ONE (15:50)
[2021-07-10 16:19] LABS: BASOPHILS % (AUTO) 0.6 % (0-1); EOSINOPHILS # (AUTO) 0.2 X10'3 (0-0.9); EOSINOPHILS % (AUTO) 3.1 % (0-6); HEMATOCRIT 43.6 % (35.0-45.0); HEMOGLOBIN 13.8 g/dl (12.0-16.0); LYMPHOCYTES # (AUTO) 1.7 X10'3 (1.1-4.8); LYMPHOCYTES % (AUTO) 24.9 % (21-51); MEAN CORPUSCULAR HEMOGLOBIN 27.7 PG (27.0-31.0); MEAN CORPUSCULAR HGB CONC 31.6 g/dL (33.0-36.5); MEAN CORPUSCULAR VOLUME 87.4 FL (78-98); MONOCYTES # (AUTO) 0.5 X10'3 (0-0.9); MONOCYTES % (AUTO) 7.9 % (2-12); NEUTROPHILS # (AUTO) 4.3 X10'3 (1.8-7.7); NEUTROPHILS % (AUTO) 63.5 % (42-75); PLATELET COUNT 266 X10'3 (140-440); RED BLOOD COUNT 4.98 X10'6 (4.20-5.60); RED CELL DISTRIBUTION WIDTH 19.6 % (11.5-14.5); WHITE BLOOD COUNT 6.7 X10'3 (4.5-11.0)
--- NOTE | 2021-07-10 16:29 | NUR ---
dr Lim notified of decreased oxygen saturation, orders received
[2021-07-10] MEDS ORDERED: ipratropium/albuterol 3ml nebule NEB ONE (16:30)
[2021-07-10] MEDS ORDERED: predniSONE 20 mg tablet PO ONE (16:30)
[2021-07-10 16:37] LABS: ALANINE AMINOTRANSFERASE 18 U/L (12-78); ALBUMIN 3.2 G/DL (3.4-5.0); ALBUMIN/GLOBULIN RATIO 0.8 (1.1-1.5); ALKALINE PHOSPHATASE 104 IU/L (46-116); ANION GAP 9 (8-16); ASPARTATE AMINO TRANSFERASE 13 U/L (10-37); BILIRUBIN,TOTAL 0.5 MG/DL (0.1-1.0); BLOOD UREA NITROGEN 16 MG/DL (7-18); BUN/CREATININE RATIO 19.8 (6.6-38.0); CALCIUM 8.5 MG/DL (8.5-10.1); CHLORIDE 105 MMOL/L (99-107); CREATININE 0.81 MG/DL (0.40-0.90); GLUCOSE 86 MG/DL (70-104); POTASSIUM 4.2 MMOL/L (3.5-5.1); SODIUM 141 MMOL/L (135-145); TOTAL PROTEIN 7.3 G/DL (6.4-8.2); eGFR 71 ML/MIN
[2021-07-10 16:40] LABS: TROPONIN I < 0.04 NG/ML (0.0-0.05)
[2021-07-10 16:51] LABS: ANISOCYTOSIS 2+; PLATELET ESTIMATE NORMAL
[2021-07-10] MEDS ORDERED: PRED20TA PO (17:07)
[2021-07-10 17:23] VITALS: BP 115/84
== END 2021-07-10 17:32 | disposition home or self-care (01) ==
LOC: ER 13:56
DX: J44.1 Chronic obstructive pulmonary disease with (acute) exacerbation (principal); R07.89 Other chest pain; R11.0 Nausea; G43.909 Migraine, unspecified, not intractable, without status migrainosus; I25.10 Atherosclerotic heart disease of native coronary artery without angina pectoris; I11.0 Hypertensive heart disease with heart failure; I50.9 Heart failure, unspecified; E78.00 Pure hypercholesterolemia, unspecified; I25.2 Old myocardial infarction; J44.9 Chronic obstructive pulmonary disease, unspecified; K21.9 Gastro-esophageal reflux disease without esophagitis; M19.90 Unspecified osteoarthritis, unspecified site; E11.9 Type 2 diabetes mellitus without complications; G89.29 Other chronic pain; F41.9 Anxiety disorder, unspecified; F32.9 Major depressive disorder, single episode, unspecified; Z87.01 Personal history of pneumonia (recurrent); Z90.710 Acquired absence of both cervix and uterus; Z98.890 Other specified postprocedural states; Z88.7 Allergy status to serum and vaccine; Z88.6 Allergy status to analgesic agent; Z88.8 Allergy status to other drugs, medicaments and biological substances; Z79.82 Long term (current) use of aspirin; Z79.899 Other long term (current) drug therapy
CPT/HCPCS: 36415; 70450; 71045; 72125; 80053; 84484; 85008; 85025; 85610; 85651; 93005; 94640; 99285; J7512; Q0163; 94760; Q0164

== ENCOUNTER 2021-08-21 18:26 | Inpatient (IN) | payer MEDICAID ==
[~2021-08-21] VITALS: Ht 160 cm; Wt 102.3 kg
[2021-08-21] MEDS ORDERED: methylPREDNISolone sod succ 125mg/2ml vial IV ONE (20:10)
[2021-08-21] MEDS ORDERED: normal saline 1000ml 1,000 ML IV ONE (20:10)
[2021-08-21 20:56] LABS: BASOPHILS % (AUTO) 0.4 % (0-1); EOSINOPHILS % (AUTO) 0.1 % (0-6); HEMATOCRIT 43.7 % (35.0-45.0); LYMPHOCYTES # (AUTO) 0.7 X10'3 (1.1-4.8); LYMPHOCYTES % (AUTO) 8.9 % (21-51); MEAN CORPUSCULAR HEMOGLOBIN 28.7 PG (27.0-31.0); MEAN CORPUSCULAR HGB CONC 32.2 g/dL (33.0-36.5); MEAN CORPUSCULAR VOLUME 89.4 FL (78-98); MEAN PLATELET VOLUME 6.7 FL (7.4-10.4); MONOCYTES # (AUTO) 0.8 X10'3 (0-0.9); NEUTROPHILS # (AUTO) 6.8 X10'3 (1.8-7.7); NEUTROPHILS % (AUTO) 80.6 % (42-75); PLATELET COUNT 252 X10'3 (140-440); RED BLOOD COUNT 4.89 X10'6 (4.20-5.60); RED CELL DISTRIBUTION WIDTH 18.5 % (11.5-14.5); WHITE BLOOD COUNT 8.4 X10'3 (4.5-11.0)
[2021-08-21 21:22] LABS: ALBUMIN 3.2 G/DL (3.4-5.0); ANION GAP 13 (8-16); BLOOD UREA NITROGEN 18 MG/DL (7-18); BUN/CREATININE RATIO 16.7 (6.6-38.0); CALCIUM 8.9 MG/DL (8.5-10.1); CHLORIDE 98 MMOL/L (99-107); CREATININE 1.08 MG/DL (0.40-0.90); GLUCOSE 139 MG/DL (70-104); POTASSIUM 4.1 MMOL/L (3.5-5.1); SODIUM 137 MMOL/L (135-145); TOTAL CARBON DIOXIDE 26.1 MMOL/L (24-32); eGFR 51 ML/MIN
[2021-08-21] MEDS ORDERED: aspirin 81mg tab.chew PO ONE (21:35)
[2021-08-21] MEDS ORDERED: heparin 10,000 units/1 ML INJ IV PRN ×2 (21:35→22:35)
[2021-08-21] MEDS ORDERED: heparin 25,000 UNIT/250ml bag 250 ML IV SCH ×2 (21:35→22:35)
[2021-08-21] MEDS ORDERED: nitroGLYCERIN 0.4mg SUBLingual tab SL PRN (21:35)
[2021-08-21] MEDS ORDERED: heparin 10,000 units/1 ML INJ IV ONE ×3 (21:35→22:35)
[2021-08-21] MEDS ORDERED: albuterol 2.5 MG/3 ML nebule CONTNEB PRN (21:40)
[2021-08-21] MEDS ORDERED: iohexol 350MG/ML 100ml bottle IV ONE (21:42)
[2021-08-21] MEDS ORDERED: CefTRIAXone/D5W-Rocephin 1gm 50 ML IV ONE (22:20)
[2021-08-21] MEDS ORDERED: azithromycin/NS 500mg/250ml 250 ML IV ONE (22:20)
[2021-08-21] MEDS ORDERED: GABA800T11 PO (23:32)
[2021-08-21] MEDS ORDERED: SIMV-42 PO (23:40)
[2021-08-21] MEDS ORDERED: HYDROcodone/acetaminophen 10/325mg tab PO ONE (23:50)
[2021-08-22] MEDS ORDERED: furosemide 10 MG/1 ML 10ml inj IV ONE
--- NOTE | 2021-08-22 00:45 | NUR ---
ASSUMED CARE OF PT. PT RESTING COMFORTABLY IN BED. FAN IS ON PER PT PREFERENCE
--- NOTE | 2021-08-22 00:54 | NUR ---
SPOKE TO ROOMMATE, PT'S CLOSE CONTACT, OVER THE PHONE.
[2021-08-22 00:58] LABS: BASOPHILS % (AUTO) 0.2 % (0-1); EOSINOPHILS % (AUTO) 0 % (0-6); HEMATOCRIT 42.4 % (35.0-45.0); HEMOGLOBIN 13.7 g/dl (12.0-16.0); LYMPHOCYTES # (AUTO) 0.5 X10'3 (1.1-4.8); LYMPHOCYTES % (AUTO) 5.3 % (21-51); MEAN CORPUSCULAR HEMOGLOBIN 28.9 PG (27.0-31.0); MEAN CORPUSCULAR HGB CONC 32.4 g/dL (33.0-36.5); MEAN CORPUSCULAR VOLUME 89.1 FL (78-98); MEAN PLATELET VOLUME 6.7 FL (7.4-10.4); MONOCYTES # (AUTO) 0.3 X10'3 (0-0.9); MONOCYTES % (AUTO) 3.1 % (2-12); NEUTROPHILS # (AUTO) 8.4 X10'3 (1.8-7.7); NEUTROPHILS % (AUTO) 91.4 % (42-75); PLATELET COUNT 227 X10'3 (140-440); RED BLOOD COUNT 4.76 X10'6 (4.20-5.60); RED CELL DISTRIBUTION WIDTH 18.8 % (11.5-14.5); WHITE BLOOD COUNT 9.2 X10'3 (4.5-11.0)
[2021-08-22] MEDS ORDERED: magnesium hydroxide 30ml (MOM) UD suspension PO PRN (01:30)
[2021-08-22] MEDS ORDERED: diphenhydrAMINE 50 mg/ml inj IV PRN (01:30)
[2021-08-22] MEDS ORDERED: diphenhydrAMINE 25mg capsule PO PRN (01:30)
[2021-08-22] MEDS ORDERED: ondansetron/PF 4mg/2ml inj IV PRN (01:30)
[2021-08-22] MEDS ORDERED: ondansetron 4mg rapidly disintigrating tab PO PRN (01:30)
[2021-08-22] MEDS ORDERED: HYDROcodone/acetaminophen 5mg/325mg tablet PO PRN (01:30)
[2021-08-22] MEDS ORDERED: mag hydrox/Alum hydrox/simeth 30ml oral suspension PO PRN (01:30)
[2021-08-22] MEDS ORDERED: acetaminophen 325mg tablet PO PRN ×2 (01:30)
[2021-08-22] MEDS ORDERED: acetaminophen 650mg rectal suppository RC PRN (01:30)
[2021-08-22] MEDS ORDERED: bisacodyl 10mg suppository rectal RC PRN (01:30)
[2021-08-22] MEDS ORDERED: dextrose 50%-water 50ml dispensing syringe IV PRN ×2 (01:35)
[2021-08-22] MEDS ORDERED: dextrose ORAL solution 15 GM/59 ML bottle PO PRN ×2 (01:35)
[2021-08-22] MEDS ORDERED: glucagon, human recombinant 1mg kit SUBCUT PRN (01:35)
[2021-08-22] MEDS ORDERED: MESSAGE TO PHARMACY PO ONE (01:35)
[2021-08-22 01:47] LABS: ANISOCYTOSIS 2+; PLATELET ESTIMATE NORMAL
[2021-08-22 01:52] LABS: TEAR DROP CELLS FEW
[2021-08-22] MEDS: normal saline 1000ml 1,000 ML IV SCH (02:18)
[2021-08-22 03:40] LABS: HEMOGLOBIN A1C 7.7 % (4.5-6.2)
[2021-08-22 03:47] LABS: MAGNESIUM 2.5 MG/DL (1.5-2.4); PHOSPHORUS 4.2 MG/DL (2.3-4.5)
--- NOTE | 2021-08-22 06:30 | NUR ---
ASSUMED PT CARE. PT SHOWS NO S/S OF ACUTE DISTRESS. AUDILBE WHEEZING NOTED.
[2021-08-22] MEDS ORDERED: methylPREDNISolone sod succ/PF 40mg inj. IV SCH (08:00)
[2021-08-22] MEDS: ipratropium/albuterol 3ml nebule IH SCH ×4 (08:16→20:01)
--- NOTE | 2021-08-22 08:27 | NUR ---
IV INFILTRATED WHILE HEPARIN WAS RUNNING. DRIP TEMP DC'D. NEW IV PLACED.
[2021-08-22] MEDS: duloxetine 30mg CAPSULE.DR PO SCH (08:39)
[2021-08-22] MEDS: clopidogrel 75mg tablet PO SCH (08:39)
[2021-08-22] MEDS: gabapentin 400mg capsule PO SCH ×3 (08:39→21:46)
[2021-08-22] MEDS: allopurinol 100mg tablet PO SCH (08:40)
[2021-08-22] MEDS: aspirin 81mg, enteric-coated 1 TAB TABLET.DR PO SCH (08:40)
[2021-08-22] MEDS: HYDROcodone/acetaminophen 10/325mg tab PO PRN ×2 (08:41→19:22)
[2021-08-22] MEDS: isosorbide mononitrate 30mg tab.SR.24H PO SCH (08:52)
--- NOTE | 2021-08-22 08:53 | NUR ---
Rebecca from GI lab called regarding if patient has started a GI prep of Golytely. Patient had not started at this time. I stated that I would page and notify and get an order for it from Dr. Cavazos. Spoke with Dr. Cavazos regarding order for golytely at which she gave verbal order for standard Golytely prep to start now once. Maryjane STAUFFER aware of new order.
[2021-08-22] MEDS: metoprolol tartrate 25mg tablet PO SCH ×2 (08:55→20:21)
[2021-08-22] MEDS: pantoprazole 40mg Tablet.DR PO SCH (08:55)
[2021-08-22] MEDS: docusate sod 100mg capsule PO SCH ×3 (08:56→19:28)
[2021-08-22] MEDS: heparin, porcine 5000 units/ml vial SQ SCH (08:56)
--- NOTE | 2021-08-22 08:56 | NUR ---
Paged and spoke with Dr. Quinn regarding diet order for patient. Dr. Quinn gave verbal order for carb control/heart healthy. No procedures pending at this time.
--- NOTE | 2021-08-22 09:00 | NUR ---
ultrasound guided iv placed in right forearm
--- NOTE | 2021-08-22 09:10 | NUR ---
FOREARM IV INFILTRATED. HEPARIN DC'D UNTIL NEW IV PLACEMENT
[2021-08-22] MEDS: methylPREDNISolone sod succ/PF 40mg inj. IV SCH ×3 (09:30→20:19)
[2021-08-22] MEDS: CefTRIAXone/D5W-Rocephin 1gm 50 ML IV SCH (09:30)
--- NOTE | 2021-08-22 10:04 | NUR ---
ULTRASOUND GUIDED IV PLACED IN LEFT AC BY PROVIDER WOOD.
--- NOTE | 2021-08-22 11:00 | NUR ---
Pt has audible wheezes. On 2L NC.
[2021-08-22] MEDS: azithromycin/NS 500mg/250ml 250 ML IV SCH (11:25)
[2021-08-22] MEDS: morphine 2 MG/ML inj. syringe IV PRN ×2 (13:58→20:39)
--- NOTE | 2021-08-22 14:45 | NUR ---
Pt requested a breathing treatment. Given medication for pain relief. Pain is in her chest and is constant.
--- NOTE | 2021-08-22 17:37 | NUR ---
Report given to EH Almanzar in PCU.
[2021-08-22 18:00] VITALS: BP 121/79
--- NOTE | 2021-08-22 19:04 | NUR ---
Notified MD of D/C heparin drip orders. MD states to follow orders and administer subQ heparin per order. D/C infusing heparin drip. will continue to monitor.
[2021-08-22] MEDS: lactobacillus rhamnosus 10,000 MMU CELLS/CAPSULE PO SCH (20:20)
[2021-08-22] MEDS ORDERED: temazepam 15mg capsule PO PRN (21:00)
[2021-08-22] MEDS: insulin glargine (Lantus) pen - multi-dose SQ SCH (21:00)
[2021-08-22] MEDS: atorvastatin 10mg tablet PO SCH (21:46)
[2021-08-22 22:00] VITALS: BP 138/89
--- NOTE | 2021-08-22 22:01 | NUR ---
Patient AM blood glucose check documented at 139. Evening blood glucose documented as 199. Patient has not yet met parameters for insulin per protocol. Will hold evening dose of Lantus.
[2021-08-23] MEDS: heparin, porcine 5000 units/ml vial SQ SCH ×3 (00:35→16:59)
[2021-08-23 02:00] VITALS: BP 117/71
[2021-08-23] MEDS: methylPREDNISolone sod succ/PF 40mg inj. IV SCH ×4 (03:15→19:51)
[2021-08-23] MEDS: HYDROcodone/acetaminophen 10/325mg tab PO PRN ×2 (03:33→07:56)
[2021-08-23 06:00] VITALS: BP 138/76
--- NOTE | 2021-08-23 06:31 | NUR ---
Patient in room resting at this time. No signs of distress noted. call light placed within reach. Patient aware of plan of care. patient C/O intermittent pain throughout night. pain medication administered per order. instructed patient to call for assistance.
[2021-08-23 06:50] LABS: BASOPHILS % (AUTO) 0.1 % (0-1); EOSINOPHILS % (AUTO) 0 % (0-6); HEMATOCRIT 40.5 % (35.0-45.0); HEMOGLOBIN 13.2 g/dl (12.0-16.0); LYMPHOCYTES # (AUTO) 0.7 X10'3 (1.1-4.8); LYMPHOCYTES % (AUTO) 9.9 % (21-51); MEAN CORPUSCULAR HEMOGLOBIN 28.9 PG (27.0-31.0); MEAN CORPUSCULAR HGB CONC 32.7 g/dL (33.0-36.5); MEAN CORPUSCULAR VOLUME 88.5 FL (78-98); MEAN PLATELET VOLUME 6.7 FL (7.4-10.4); MONOCYTES # (AUTO) 0.4 X10'3 (0-0.9); MONOCYTES % (AUTO) 6.1 % (2-12); NEUTROPHILS # (AUTO) 5.9 X10'3 (1.8-7.7); NEUTROPHILS % (AUTO) 83.9 % (42-75); PLATELET COUNT 269 X10'3 (140-440); RED BLOOD COUNT 4.57 X10'6 (4.20-5.60); RED CELL DISTRIBUTION WIDTH 18.4 % (11.5-14.5)
[2021-08-23 07:15] LABS: ALANINE AMINOTRANSFERASE 23 U/L (12-78); ALBUMIN 2.8 G/DL (3.4-5.0); ALBUMIN/GLOBULIN RATIO 0.7 (1.1-1.5); ALKALINE PHOSPHATASE 60 IU/L (46-116); ANION GAP 10 (8-16); ASPARTATE AMINO TRANSFERASE 28 U/L (10-37); BILIRUBIN,TOTAL 0.3 MG/DL (0.1-1.0); BLOOD UREA NITROGEN 31 MG/DL (7-18); BUN/CREATININE RATIO 41.3 (6.6-38.0); CALCIUM 8.4 MG/DL (8.5-10.1); CHLORIDE 101 MMOL/L (99-107); CHOL/HDL RATIO 8.2 (0.00-4.99); CHOLESTEROL 139 MG/DL (0-200); CREATININE 0.75 MG/DL (0.40-0.90); GLUCOSE 151 MG/DL (70-104); HDL CHOLESTEROL 17 MG/DL (35-60); LDL CHOLESTEROL 90 MG/DL (50-100); POTASSIUM 4.8 MMOL/L (3.5-5.1); SODIUM 141 MMOL/L (135-145); TOTAL CARBON DIOXIDE 30.3 MMOL/L (24-32); TOTAL PROTEIN 6.9 G/DL (6.4-8.2); TRIGLYCERIDES 189 MG/DL (20-135); eGFR 78 ML/MIN
[2021-08-23] MEDS: ipratropium/albuterol 3ml nebule IH SCH ×4 (07:24→20:02)
[2021-08-23] MEDS: CefTRIAXone/D5W-Rocephin 1gm 50 ML IV SCH (08:22)
[2021-08-23] MEDS: azithromycin/NS 500mg/250ml 250 ML IV SCH (08:22)
[2021-08-23] MEDS: morphine 2 MG/ML inj. syringe IV PRN ×4 (08:23→22:19)
[2021-08-23] MEDS: gabapentin 400mg capsule PO SCH ×3 (08:24→21:10)
[2021-08-23] MEDS: aspirin 81mg, enteric-coated 1 TAB TABLET.DR PO SCH (08:24)
[2021-08-23] MEDS: lactobacillus rhamnosus 10,000 MMU CELLS/CAPSULE PO SCH ×2 (08:24→19:50)
[2021-08-23] MEDS: docusate sod 100mg capsule PO SCH ×2 (08:24→19:51)
[2021-08-23] MEDS: duloxetine 30mg CAPSULE.DR PO SCH (08:25)
[2021-08-23] MEDS: pantoprazole 40mg Tablet.DR PO SCH (08:25)
[2021-08-23] MEDS: isosorbide mononitrate 30mg tab.SR.24H PO SCH (08:25)
[2021-08-23] MEDS: clopidogrel 75mg tablet PO SCH (08:25)
[2021-08-23] MEDS: metoprolol tartrate 25mg tablet PO SCH ×2 (08:26→19:51)
[2021-08-23] MEDS: allopurinol 100mg tablet PO SCH (08:26)
[2021-08-23 11:00] VITALS: BP 122/77
--- NOTE | 2021-08-23 14:34 | NUR ---
Calorie count consult: Pt denied wt loss or decreased appetite per malnutrition risk screen with RN. Currently on a heart healthy CHO controlled diet and eating well, documented with 75-100% PO intake. No documented edema or decrease in muscle strength. Calorie count not indicated at this time. Noted pt with T2DM, fairly well controlled with A1c 7.7%. Written DM education with RD contact information placed in patient's chart. Will remain available. Addendum: 08/23/21 at [address] Amended: Links added.
[2021-08-23 15:00] VITALS: BP 130/70
[2021-08-23 18:00] VITALS: BP 119/69
[2021-08-23] MEDS: atorvastatin 10mg tablet PO SCH (21:11)
[2021-08-23] MEDS: insulin glargine (Lantus) pen - multi-dose SQ SCH (21:14)
[2021-08-23 22:00] VITALS: BP 127/80
--- NOTE | 2021-08-23 23:16 | NUR ---
IV medication administered for pain over PO first. Patient states oral medication is not as effective and IV works better. Refused to take oral pain medication first. Will continue to monitor.
[2021-08-24] MEDS: ipratropium/albuterol 3ml nebule NEB PRN ×2 (00:14→07:01)
[2021-08-24] MEDS: heparin, porcine 5000 units/ml vial SQ SCH ×3 (00:24→15:43)
[2021-08-24] MEDS: normal saline 1000ml 1,000 ML IV SCH (01:54)
[2021-08-24] MEDS: methylPREDNISolone sod succ/PF 40mg inj. IV SCH ×4 (01:54→20:01)
[2021-08-24 02:00] VITALS: BP 124/81
[2021-08-24] MEDS: ipratropium/albuterol 3ml nebule IH SCH ×4 (04:03→19:41)
[2021-08-24] MEDS: HYDROcodone/acetaminophen 10/325mg tab PO PRN (04:10)
--- NOTE | 2021-08-24 05:24 | NUR ---
Patient in bed resting at this time. No signs of distress. VSS throughout shift. Slight intermittent pain noted. Pain medication administered per order. Patient aware of plan of care. Call light and personal belongings placed within reach of patient. Instructed to call for assistance.
[2021-08-24 07:13] LABS: BASOPHILS % (AUTO) 0.1 % (0-1); EOSINOPHILS % (AUTO) 0 % (0-6); HEMATOCRIT 41.5 % (35.0-45.0); HEMOGLOBIN 13.1 g/dl (12.0-16.0); LYMPHOCYTES % (AUTO) 21.5 % (21-51); MEAN CORPUSCULAR HEMOGLOBIN 28.3 PG (27.0-31.0); MEAN CORPUSCULAR HGB CONC 31.6 g/dL (33.0-36.5); MEAN CORPUSCULAR VOLUME 89.7 FL (78-98); MEAN PLATELET VOLUME 6.8 FL (7.4-10.4); MONOCYTES # (AUTO) 0.5 X10'3 (0-0.9); MONOCYTES % (AUTO) 10.1 % (2-12); NEUTROPHILS # (AUTO) 3.2 X10'3 (1.8-7.7); NEUTROPHILS % (AUTO) 68.3 % (42-75); PLATELET COUNT 254 X10'3 (140-440); RED BLOOD COUNT 4.62 X10'6 (4.20-5.60); RED CELL DISTRIBUTION WIDTH 18.2 % (11.5-14.5); WHITE BLOOD COUNT 4.7 X10'3 (4.5-11.0)
[2021-08-24] MEDS: aspirin 81mg, enteric-coated 1 TAB TABLET.DR PO SCH (07:15)
[2021-08-24] MEDS: morphine 2 MG/ML inj. syringe IV PRN ×4 (07:15→20:07)
[2021-08-24] MEDS: metoprolol tartrate 25mg tablet PO SCH ×2 (07:16→20:05)
[2021-08-24] MEDS: clopidogrel 75mg tablet PO SCH (07:16)
[2021-08-24] MEDS: lactobacillus rhamnosus 10,000 MMU CELLS/CAPSULE PO SCH ×2 (07:17→20:05)
[2021-08-24] MEDS: docusate sod 100mg capsule PO SCH ×2 (07:17→20:00)
[2021-08-24] MEDS: gabapentin 400mg capsule PO SCH ×3 (07:18→21:38)
[2021-08-24] MEDS: pantoprazole 40mg Tablet.DR PO SCH (07:18)
[2021-08-24] MEDS: duloxetine 30mg CAPSULE.DR PO SCH (07:18)
[2021-08-24] MEDS: isosorbide mononitrate 30mg tab.SR.24H PO SCH (07:18)
[2021-08-24] MEDS: allopurinol 100mg tablet PO SCH (07:23)
[2021-08-24 07:31] LABS: ALANINE AMINOTRANSFERASE 24 U/L (12-78); ALBUMIN/GLOBULIN RATIO 0.7 (1.1-1.5); ALKALINE PHOSPHATASE 57 IU/L (46-116); ANION GAP 9 (8-16); ASPARTATE AMINO TRANSFERASE 23 U/L (10-37); BILIRUBIN,TOTAL 0.5 MG/DL (0.1-1.0); BLOOD UREA NITROGEN 29 MG/DL (7-18); BUN/CREATININE RATIO 34.9 (6.6-38.0); CHLORIDE 100 MMOL/L (99-107); CREATININE 0.83 MG/DL (0.40-0.90); GLUCOSE 165 MG/DL (70-104); SODIUM 141 MMOL/L (135-145); TOTAL CARBON DIOXIDE 32.3 MMOL/L (24-32); TOTAL PROTEIN 7.3 G/DL (6.4-8.2); eGFR 69 ML/MIN
[2021-08-24] MEDS: azithromycin/NS 500mg/250ml 250 ML IV SCH (08:43)
[2021-08-24] MEDS: CefTRIAXone/D5W-Rocephin 1gm 50 ML IV SCH (08:44)
[2021-08-24] MEDS: insulin Lispro (HumaLOG) vial - multi-dose SQ SCH ×2 (08:47→13:28)
[2021-08-24 09:04] VITALS: BP 156/86
[2021-08-24 11:24] VITALS: BP 134/67
[2021-08-24 18:00] VITALS: BP 120/61
[2021-08-24] MEDS: atorvastatin 10mg tablet PO SCH (21:38)
[2021-08-24] MEDS: insulin glargine (Lantus) pen - multi-dose SQ SCH (21:49)
[2021-08-24 22:00] VITALS: BP 158/90
[2021-08-24] MEDS: clonazePAM 0.5mg tablet PO PRN (23:00)
[2021-08-25] MEDS: heparin, porcine 5000 units/ml vial SQ SCH ×3 (00:37→15:41)
[2021-08-25 02:00] VITALS: BP 156/84
[2021-08-25] MEDS: ipratropium/albuterol 3ml nebule NEB PRN (02:14)
[2021-08-25] MEDS: methylPREDNISolone sod succ/PF 40mg inj. IV SCH ×4 (02:46→19:39)
[2021-08-25] MEDS: morphine 2 MG/ML inj. syringe IV PRN ×5 (02:47→20:50)
[2021-08-25 06:00] VITALS: BP 175/96
--- NOTE | 2021-08-25 06:12 | NUR ---
No signs of distress noted at this time. patient has intermittent pain throughout night. Pain medication administered per order. patient aware of plan of care. VSS throughout shift. call light and personal belongings placed within reach. instructed to call for assistance.
[2021-08-25 06:23] LABS: BASOPHILS % (AUTO) 0.1 % (0-1); EOSINOPHILS % (AUTO) 0 % (0-6); HEMATOCRIT 39.6 % (35.0-45.0); HEMOGLOBIN 12.8 g/dl (12.0-16.0); LYMPHOCYTES # (AUTO) 0.9 X10'3 (1.1-4.8); LYMPHOCYTES % (AUTO) 21.4 % (21-51); MEAN CORPUSCULAR HEMOGLOBIN 28.9 PG (27.0-31.0); MEAN CORPUSCULAR HGB CONC 32.4 g/dL (33.0-36.5); MEAN PLATELET VOLUME 6.8 FL (7.4-10.4); MONOCYTES # (AUTO) 0.5 X10'3 (0-0.9); NEUTROPHILS # (AUTO) 2.9 X10'3 (1.8-7.7); NEUTROPHILS % (AUTO) 66.5 % (42-75); PLATELET COUNT 252 X10'3 (140-440); RED BLOOD COUNT 4.44 X10'6 (4.20-5.60); RED CELL DISTRIBUTION WIDTH 18.1 % (11.5-14.5); WHITE BLOOD COUNT 4.4 X10'3 (4.5-11.0)
--- NOTE | 2021-08-25 06:28 | NUR ---
Report given toAleyda.
[2021-08-25 06:54] LABS: ALANINE AMINOTRANSFERASE 26 U/L (12-78); ALBUMIN 3.1 G/DL (3.4-5.0); ALBUMIN/GLOBULIN RATIO 0.8 (1.1-1.5); ALKALINE PHOSPHATASE 55 IU/L (46-116); ANION GAP 6 (8-16); ASPARTATE AMINO TRANSFERASE 18 U/L (10-37); BILIRUBIN,TOTAL 0.4 MG/DL (0.1-1.0); BLOOD UREA NITROGEN 26 MG/DL (7-18); BUN/CREATININE RATIO 33.3 (6.6-38.0); CHLORIDE 103 MMOL/L (99-107); CREATININE 0.78 MG/DL (0.40-0.90); GLUCOSE 162 MG/DL (70-104); POTASSIUM 4.6 MMOL/L (3.5-5.1); SODIUM 141 MMOL/L (135-145); TOTAL CARBON DIOXIDE 32.1 MMOL/L (24-32); TOTAL PROTEIN 7.1 G/DL (6.4-8.2); eGFR 74 ML/MIN
[2021-08-25] MEDS: ipratropium/albuterol 3ml nebule IH SCH ×4 (07:16→19:49)
[2021-08-25] MEDS: lactobacillus rhamnosus 10,000 MMU CELLS/CAPSULE PO SCH ×2 (07:53→19:39)
[2021-08-25] MEDS: aspirin 81mg, enteric-coated 1 TAB TABLET.DR PO SCH (07:53)
[2021-08-25] MEDS: docusate sod 100mg capsule PO SCH ×2 (07:53→19:38)
[2021-08-25] MEDS: gabapentin 400mg capsule PO SCH ×3 (07:54→22:13)
[2021-08-25] MEDS: clopidogrel 75mg tablet PO SCH (07:54)
[2021-08-25] MEDS: duloxetine 30mg CAPSULE.DR PO SCH (07:54)
[2021-08-25] MEDS: pantoprazole 40mg Tablet.DR PO SCH (07:54)
[2021-08-25] MEDS: isosorbide mononitrate 30mg tab.SR.24H PO SCH (07:54)
[2021-08-25] MEDS: CefTRIAXone/D5W-Rocephin 1gm 50 ML IV SCH (07:55)
[2021-08-25] MEDS: allopurinol 100mg tablet PO SCH (07:55)
[2021-08-25] MEDS: metoprolol tartrate 25mg tablet PO SCH ×2 (07:55→19:39)
[2021-08-25] MEDS: azithromycin/NS 500mg/250ml 250 ML IV SCH (07:56)
[2021-08-25] MEDS: insulin Lispro (HumaLOG) vial - multi-dose SQ SCH ×2 (09:54→14:19)
[2021-08-25] MEDS: clonazePAM 0.5mg tablet PO PRN (09:56)
[2021-08-25 11:00] VITALS: BP 144/74
[2021-08-25 18:00] VITALS: BP 119/70
--- NOTE | 2021-08-25 20:00 | NUR ---
Patient still refusing oral pain medication. States that IV medication works better for her. Educated patient on the side effects of pain medication. patient verbalized understanding.
[2021-08-25] MEDS: atorvastatin 10mg tablet PO SCH (20:49)
[2021-08-25 22:00] VITALS: BP 144/85
[2021-08-25] MEDS: insulin glargine (Lantus) pen - multi-dose SQ SCH (22:04)
[2021-08-26] MEDS: heparin, porcine 5000 units/ml vial SQ SCH ×2 (01:11→07:54)
[2021-08-26] MEDS: morphine 2 MG/ML inj. syringe IV PRN ×3 (01:12→09:38)
[2021-08-26] MEDS: normal saline 1000ml 1,000 ML IV SCH (02:45)
[2021-08-26] MEDS: methylPREDNISolone sod succ/PF 40mg inj. IV SCH ×2 (02:45→07:54)
[2021-08-26] MEDS: ipratropium/albuterol 3ml nebule NEB PRN (03:27)
--- NOTE | 2021-08-26 05:19 | NUR ---
Patient in room resting at this time. No signs of distress noted. C/O intermittent pain. Pain medication administered per order. Call light and personal belongings placed within reach. Assessment and vital signs charted in interventions.
[2021-08-26 06:00] VITALS: BP 180/98
[2021-08-26 06:02] LABS: BASOPHILS % (AUTO) 0.7 % (0-1); EOSINOPHILS % (AUTO) 0 % (0-6); HEMATOCRIT 42.3 % (35.0-45.0); HEMOGLOBIN 13.5 g/dl (12.0-16.0); LYMPHOCYTES # (AUTO) 0.9 X10'3 (1.1-4.8); LYMPHOCYTES % (AUTO) 17.9 % (21-51); MEAN CORPUSCULAR HEMOGLOBIN 28.6 PG (27.0-31.0); MEAN CORPUSCULAR HGB CONC 31.9 g/dL (33.0-36.5); MEAN CORPUSCULAR VOLUME 89.6 FL (78-98); MEAN PLATELET VOLUME 6.5 FL (7.4-10.4); MONOCYTES # (AUTO) 0.6 X10'3 (0-0.9); MONOCYTES % (AUTO) 11.6 % (2-12); NEUTROPHILS # (AUTO) 3.3 X10'3 (1.8-7.7); NEUTROPHILS % (AUTO) 69.8 % (42-75); PLATELET COUNT 221 X10'3 (140-440); RED BLOOD COUNT 4.72 X10'6 (4.20-5.60); RED CELL DISTRIBUTION WIDTH 17.8 % (11.5-14.5); WHITE BLOOD COUNT 4.7 X10'3 (4.5-11.0)
[2021-08-26 06:20] LABS: ALANINE AMINOTRANSFERASE 26 U/L (12-78); ALBUMIN/GLOBULIN RATIO 0.8 (1.1-1.5); ALKALINE PHOSPHATASE 52 IU/L (46-116); ANION GAP 1 (8-16); ASPARTATE AMINO TRANSFERASE 22 U/L (10-37); BILIRUBIN,TOTAL 0.5 MG/DL (0.1-1.0); BLOOD UREA NITROGEN 22 MG/DL (7-18); BUN/CREATININE RATIO 28.6 (6.6-38.0); CALCIUM 9.2 MG/DL (8.5-10.1); CHLORIDE 102 MMOL/L (99-107); CREATININE 0.77 MG/DL (0.40-0.90); GLUCOSE 168 MG/DL (70-104); SODIUM 136 MMOL/L (135-145); TOTAL CARBON DIOXIDE 32.6 MMOL/L (24-32); eGFR 75 ML/MIN
[2021-08-26 06:25] LABS: POTASSIUM 4.9 MMOL/L (3.5-5.1)
[2021-08-26] MEDS: ipratropium/albuterol 3ml nebule IH SCH ×2 (07:30→12:21)
[2021-08-26] MEDS: gabapentin 400mg capsule PO SCH (07:51)
[2021-08-26] MEDS: lactobacillus rhamnosus 10,000 MMU CELLS/CAPSULE PO SCH (07:51)
[2021-08-26] MEDS: duloxetine 30mg CAPSULE.DR PO SCH (07:51)
[2021-08-26] MEDS: isosorbide mononitrate 30mg tab.SR.24H PO SCH (07:52)
[2021-08-26] MEDS: pantoprazole 40mg Tablet.DR PO SCH (07:52)
[2021-08-26] MEDS: aspirin 81mg, enteric-coated 1 TAB TABLET.DR PO SCH (07:52)
[2021-08-26] MEDS: docusate sod 100mg capsule PO SCH (07:52)
[2021-08-26] MEDS: allopurinol 100mg tablet PO SCH (07:52)
[2021-08-26] MEDS: clopidogrel 75mg tablet PO SCH (07:53)
[2021-08-26] MEDS: metoprolol tartrate 25mg tablet PO SCH (07:53)
[2021-08-26] MEDS: CefTRIAXone/D5W-Rocephin 1gm 50 ML IV SCH (07:55)
[2021-08-26] MEDS: azithromycin/NS 500mg/250ml 250 ML IV SCH (07:55)
[2021-08-26] MEDS: clonazePAM 0.5mg tablet PO PRN (08:47)
--- NOTE | 2021-08-26 09:46 | NUR ---
Initial: Pt admit for acute on chronic respiratory failure, COPD exacerbation, and PNA. Pt overall eating well documented with mostly 75-100% PO intake on a heart healthy CHO controlled diet. Noted pt documented to have refused meals starting dinner 08/24 to lunch 08/25, though back up to 100% PO intake at dinner 08/25. Documentation of PO intake for today pending. LBM 08/24 per I&O, receiving routine bowel care with PRN bowel care available. No nutrition intervention implemented at this time. Will continue to follow. Recommendations: 1) Continue heart healthy CHO controlled diet 2) Monitor need for additional protein for satiety 3) Routine bowel care 4) Scaled weight this admit; weekly scaled weights thereafter Addendum: 08/26/21 at [address] Amended: Links added.
[2021-08-26] MEDS: insulin Lispro (HumaLOG) vial - multi-dose SQ SCH (09:47)
--- NOTE | 2021-08-26 11:38 | NUR ---
O2 Sat at rest on room air:88% If below 89%: Recovery O2 Sat at rest on 3LPM at 96% via nasal cannula No further documentation is necessary.
[2021-08-26] MEDS ORDERED: METH4TAB81 PO (11:51)
[2021-08-26] MEDS ORDERED: AZIT500T9 PO (11:51)
[2021-08-26 13:00] VITALS: BP 143/70
--- NOTE | 2021-08-26 14:27 | NUR ---
patient discharged home with family member on a private vehicle. pt escorted off the unit accompanied by staff member. pt was alert and oriented with stable vital signs. patient's PIV on left hand discontinued with catheter tip intact , patient was on oxygen 3L upon discharge. patient given discharge instruction . e- prescription sent to pt preferred pharmacy. patient mention reportable symptom and when to see a doctor . pt is aware of making her own appointment.
== END 2021-08-26 13:30 | disposition home or self-care (01) | DRG 139 ==
LOC: ER 18:26 → UNDOADMIN 08-22 01:28 → ED HOLD 08-22 01:28 → PCU 3S 08-22 18:09
PROVIDERS: ADMIT Family Medicine; ATTEND Family Medicine
PROC: B32T1ZZ Computerized Tomography (CT Scan) of Left Pulmonary Artery using Low Osmolar Contrast (ICD-10-PCS; principal; 2021-08-21)
PROC: B3201ZZ Computerized Tomography (CT Scan) of Thoracic Aorta using Low Osmolar Contrast (ICD-10-PCS; 2021-08-21)
PROC: B32S1ZZ Computerized Tomography (CT Scan) of Right Pulmonary Artery using Low Osmolar Contrast (ICD-10-PCS; 2021-08-21)
DX: J18.9 Pneumonia, unspecified organism (principal); J96.21 Acute and chronic respiratory failure with hypoxia; I21.A1 Myocardial infarction type 2; E66.01 Morbid (severe) obesity due to excess calories; I11.0 Hypertensive heart disease with heart failure; I50.32 Chronic diastolic (congestive) heart failure; E78.00 Pure hypercholesterolemia, unspecified; E78.5 Hyperlipidemia, unspecified; F17.210 Nicotine dependence, cigarettes, uncomplicated; G47.33 Obstructive sleep apnea (adult) (pediatric); I25.10 Atherosclerotic heart disease of native coronary artery without angina pectoris; K21.9 Gastro-esophageal reflux disease without esophagitis; F41.9 Anxiety disorder, unspecified; Z20.822 Contact with and (suspected) exposure to COVID-19; F32.A Depression, unspecified; J44.1 Chronic obstructive pulmonary disease with (acute) exacerbation; E11.51 Type 2 diabetes mellitus with diabetic peripheral angiopathy without gangrene; E11.65 Type 2 diabetes mellitus with hyperglycemia; J44.0 Chronic obstructive pulmonary disease with (acute) lower respiratory infection; G43.909 Migraine, unspecified, not intractable, without status migrainosus; M19.90 Unspecified osteoarthritis, unspecified site; M10.9 Gout, unspecified; Z82.49 Family history of ischemic heart disease and other diseases of the circulatory system; Z83.3 Family history of diabetes mellitus; I25.2 Old myocardial infarction; Z82.61 Family history of arthritis; Z82.5 Family history of asthma and other chronic lower respiratory diseases; Z95.5 Presence of coronary angioplasty implant and graft; Z68.39 Body mass index [BMI] 39.0-39.9, adult; Z90.710 Acquired absence of both cervix and uterus; Z88.6 Allergy status to analgesic agent; Z88.7 Allergy status to serum and vaccine; Z79.899 Other long term (current) drug therapy; Z87.01 Personal history of pneumonia (recurrent); Z99.81 Dependence on supplemental oxygen
CPT/HCPCS: 36415; 71045; 71275; 80048; 80053; 80061; 82948; 83036; 83735; 83880; 84100; 84484; 85008; 85025; 85610; 85730; 87635; 93005; 94640; 94760; 96365; 96366; 96368; 96375; 99285; A7015; C9803; G0378; J0456; J0696; J1644; J1815; J1940; J2270; J2405; J2920; J2930; J7030; Q9967

== ENCOUNTER 2021-11-22 15:01 | Emergency (ER) | payer MEDICAID ==
[~2021-11-22] VITALS: Ht 162.6 cm; Wt 220.0 kg
[~2021-11-22 15:01] MED LIST changes: -ATOR10TA PO; +AZIT500T9 PO; -CARB-226 EACHEYE; -GABA600T13 PO; +GABA800T11 PO; +METH4TAB81 PO; -NICO-687 TD; +SIMV-42 PO
[2021-11-22 15:34] VITALS: BP 121/80
[2021-11-23] MEDS ORDERED: CEPH250T PO (14:59)
== END 2021-11-23 02:40 | disposition left against medical advice (07) ==
LOC: ER 15:02
DX: N76.4 Abscess of vulva (principal); G43.909 Migraine, unspecified, not intractable, without status migrainosus; I25.10 Atherosclerotic heart disease of native coronary artery without angina pectoris; E78.00 Pure hypercholesterolemia, unspecified; I11.0 Hypertensive heart disease with heart failure; I50.9 Heart failure, unspecified; I25.2 Old myocardial infarction; J44.9 Chronic obstructive pulmonary disease, unspecified; G47.30 Sleep apnea, unspecified; K21.9 Gastro-esophageal reflux disease without esophagitis; E11.9 Type 2 diabetes mellitus without complications; M19.90 Unspecified osteoarthritis, unspecified site; G89.29 Other chronic pain; Z87.01 Personal history of pneumonia (recurrent); Z86.718 Personal history of other venous thrombosis and embolism; Z88.6 Allergy status to analgesic agent; Z88.7 Allergy status to serum and vaccine; Z79.82 Long term (current) use of aspirin; Z79.2 Long term (current) use of antibiotics; Z79.4 Long term (current) use of insulin; Z79.899 Other long term (current) drug therapy
CPT/HCPCS: 99281

== ENCOUNTER 2021-11-23 12:03 | Emergency (ER) | payer MEDICAID ==
[~2021-11-23] VITALS: Ht 167.6 cm; Wt 110.0 kg
[2021-11-23 12:10] VITALS: BP 166/84
[2021-11-23] MEDS ORDERED: LIDOcaine 1% W/epiNEPHrine 1:200,000 10ml vial IJ ONE (13:55)
[2021-11-23] MEDS ORDERED: LIDOcaine 1% W/epiNEPHrine 1:100,000 20ml vial IJ ONE (14:05)
[2021-11-23] MEDS ORDERED: CEPH250T PO (14:59)
--- NOTE | 2021-11-23 15:04 | NUR ---
PT SEEN, TREATED AND DC FROM TRIAGE
== END 2021-11-23 15:05 | disposition home or self-care (01) ==
LOC: ER 12:04
DX: N76.4 Abscess of vulva (principal); G43.909 Migraine, unspecified, not intractable, without status migrainosus; I25.10 Atherosclerotic heart disease of native coronary artery without angina pectoris; I11.0 Hypertensive heart disease with heart failure; I50.9 Heart failure, unspecified; E78.00 Pure hypercholesterolemia, unspecified; I25.2 Old myocardial infarction; J44.9 Chronic obstructive pulmonary disease, unspecified; K21.9 Gastro-esophageal reflux disease without esophagitis; G89.29 Other chronic pain; M19.90 Unspecified osteoarthritis, unspecified site; Z86.61 Personal history of infections of the central nervous system; Z87.01 Personal history of pneumonia (recurrent); Z87.891 Personal history of nicotine dependence; Z88.7 Allergy status to serum and vaccine; Z88.6 Allergy status to analgesic agent; Z79.82 Long term (current) use of aspirin; Z79.899 Other long term (current) drug therapy; Z79.2 Long term (current) use of antibiotics; Z79.4 Long term (current) use of insulin
CPT/HCPCS: 56405; 99284

== ENCOUNTER 2021-12-13 14:33 | Emergency (ER) | payer MEDICAID ==
[~2021-12-13] VITALS: Ht 162.6 cm; Wt 99.1 kg
[2021-12-13 14:35] VITALS: BP 149/96
--- NOTE | 2021-12-13 15:45 | NUR ---
Pt left before formal d/c.
== END 2021-12-13 15:45 | disposition home or self-care (01) ==
LOC: ER 14:34
DX: J96.11 Chronic respiratory failure with hypoxia (principal); R42 Dizziness and giddiness; R53.83 Other fatigue; G43.909 Migraine, unspecified, not intractable, without status migrainosus; I11.0 Hypertensive heart disease with heart failure; E78.00 Pure hypercholesterolemia, unspecified; E11.9 Type 2 diabetes mellitus without complications; F41.9 Anxiety disorder, unspecified; G89.29 Other chronic pain; F32.9 Major depressive disorder, single episode, unspecified; Z88.6 Allergy status to analgesic agent; Z91.09 Other allergy status, other than to drugs and biological substances; Z20.822 Contact with and (suspected) exposure to COVID-19
CPT/HCPCS: 71045; 87635; 99284; C9803

== ENCOUNTER 2022-08-18 11:59 | Inpatient (IN) | payer MEDICAID ==
[~2022-08-18] VITALS: Ht 165.1 cm; Wt 81.0 kg
[~2022-08-18 11:59] MED LIST changes: +BUDE10.7 IH; -BUDE10.7 PO
[2022-08-18 13:49] LABS: BASOPHILS % (AUTO) 0.1 % (0-1); EOSINOPHILS % (AUTO) 0 % (0-6); HEMATOCRIT 45.4 % (35.0-45.0); HEMOGLOBIN 14.3 g/dl (12.0-16.0); LYMPHOCYTES # (AUTO) 0.8 X10'3 (1.1-4.8); LYMPHOCYTES % (AUTO) 5.7 % (21-51); MEAN CORPUSCULAR HEMOGLOBIN 29.7 PG (27.0-31.0); MEAN CORPUSCULAR HGB CONC 31.5 g/dL (33.0-36.5); MEAN CORPUSCULAR VOLUME 94.5 FL (78-98); MEAN PLATELET VOLUME 6.5 FL (7.4-10.4); MONOCYTES # (AUTO) 1.1 X10'3 (0-0.9); MONOCYTES % (AUTO) 7.1 % (2-12); NEUTROPHILS % (AUTO) 87.1 % (42-75); PLATELET COUNT 254 X10'3 (140-440); RED BLOOD COUNT 4.81 X10'6 (4.20-5.60); RED CELL DISTRIBUTION WIDTH 15.8 % (11.5-14.5); WHITE BLOOD COUNT 14.9 X10'3 (4.5-11.0)
[2022-08-18 13:57] LABS: ALANINE AMINOTRANSFERASE 12 U/L (12-78); ALBUMIN 2.9 G/DL (3.4-5.0); ALBUMIN/GLOBULIN RATIO 0.8 (1.1-1.5); ALKALINE PHOSPHATASE 90 IU/L (46-116); ANION GAP 11 (8-16); ASPARTATE AMINO TRANSFERASE 11 U/L (10-37); BILIRUBIN,TOTAL 0.4 MG/DL (0.1-1.0); BLOOD UREA NITROGEN 9 MG/DL (7-18); BUN/CREATININE RATIO 11.4 (6.6-38.0); CHLORIDE 102 MMOL/L (99-107); CREATININE 0.79 MG/DL (0.40-0.90); GLUCOSE 177 MG/DL (70-104); POTASSIUM 4.6 MMOL/L (3.5-5.1); SODIUM 137 MMOL/L (135-145); TOTAL CARBON DIOXIDE 24.3 MMOL/L (24-32); TOTAL PROTEIN 6.5 G/DL (6.4-8.2); eGFR 73 ML/MIN
[2022-08-18] MEDS ORDERED: azithromycin/NS 500mg/250ml 250 ML IV ONE (14:20)
[2022-08-18] MEDS ORDERED: magnesium 2GM in 50ml NS 50 ML IV ONE (14:20)
[2022-08-18] MEDS ORDERED: albuterol 2.5 MG/3 ML nebule CONTNEB PRN (14:20)
[2022-08-18] MEDS ORDERED: methylPREDNISolone sod succ 125mg/2ml vial IV ONE (14:20)
[2022-08-18] MEDS ORDERED: CefTRIAXone 2gm/D5W 50ml BAG 50 ML IV ONE (14:20)
[2022-08-18] MEDS ORDERED: normal saline 1000ML IV soln IV ONE (14:20)
[2022-08-18] MEDS ORDERED: ondansetron/PF 4mg/2ml inj IV ONE (15:05)
[2022-08-18] MEDS: morphine 4 MG/ML inj SYRINge IV PRN ×2 (15:11→19:09)
[2022-08-18] MEDS ORDERED: iohexol 350MG/ML 100ml bottle IV ONE (16:13)
[2022-08-18] MEDS ORDERED: magnesium Cl slow-release 64mg tablet PO PRN (16:25)
[2022-08-18] MEDS ORDERED: ASPI-1397 PO (16:25)
[2022-08-18] MEDS ORDERED: acetaminophen 325mg tablet PO PRN ×2 (16:25)
[2022-08-18] MEDS ORDERED: PRIM50TA5 PO (16:25)
[2022-08-18] MEDS ORDERED: ROFL500T7 PO (16:25)
[2022-08-18] MEDS ORDERED: FLUT16SP11 NS (16:25)
[2022-08-18] MEDS ORDERED: potassium CL 10mEq/100ml bag 100 ML IV PRN (16:25)
[2022-08-18] MEDS ORDERED: HYDROcodone/acetaminophen 5mg/325mg tablet PO PRN (16:25)
[2022-08-18] MEDS ORDERED: POTASSIUM BICARB 20meq eff tab 20 MEQ TABLET.EFF PO PRN ×2 (16:25)
[2022-08-18] MEDS ORDERED: ondansetron/PF 4mg/2ml inj IV PRN (16:25)
[2022-08-18] MEDS ORDERED: FLUO15OI2 (16:25)
[2022-08-18] MEDS ORDERED: CLOP75TA34 PO (16:25)
[2022-08-18] MEDS ORDERED: TIOT4MIS2 INH (16:25)
[2022-08-18] MEDS ORDERED: PRED20TA (16:25)
[2022-08-18] MEDS ORDERED: magnesium 4gm in 100ml NS 100 ML IV PRN (16:25)
[2022-08-18] MEDS ORDERED: magnesium 2GM in 50ml NS 50 ML IV PRN (16:25)
[2022-08-18] MEDS ORDERED: METO25TA6 PO (16:25)
[2022-08-18] MEDS ORDERED: BUDE10.26 IH (16:25)
[2022-08-18] MEDS ORDERED: HYDR-3686 PO (16:25)
[2022-08-18] MEDS ORDERED: DULO60CA65 PO (16:25)
[2022-08-18] MEDS ORDERED: morphine 2 MG/ML inj. syringe IV PRN (16:25)
[2022-08-18] MEDS ORDERED: NITR0.4T48 SL (16:25)
[2022-08-18] MEDS ORDERED: LORA10TA7 PO (16:25)
[2022-08-18] MEDS ORDERED: TOPI50TA24 PO (16:25)
[2022-08-18 16:56] LABS: ABG HCO3 22.5 mmol/L (22.0-26.0); ABG PCO2 (T) 37.8 mmHg (32.0-45.0); ABG PO2 (T) 77.2 mmHg (75.0-100.0); ALLEN'S TEST POSITIVE; FCOHb 0.6 % (0.0-3.9); FLOW 3 L/min; FMetHb 0.3 % (0.0-1.5); FO2Hb 95.1 % (94-97); TOTAL HEMOGLOBIN 14.7 G/dl (12.0-16.0)
[2022-08-18 19:17] VITALS: BP 104/68
--- NOTE | 2022-08-18 19:17 | NUR ---
assisting RN with pt care, pt is resting quietly on gurney, eating dinner, no n/v, medicated for chest pain with prn pain med,
[2022-08-18 19:53] LABS: HEMOGLOBIN A1C 5.7 % (4.5-6.2)
[2022-08-18] MEDS ORDERED: K and/or MAG REPLACEMENT MC SCH (20:00)
[2022-08-18] MEDS ORDERED: albuterol 2.5 MG/3 ML nebule NEB SCH (20:00)
[2022-08-18] MEDS ORDERED: heparin, porcine 5000 units/ml vial SQ SCH (20:00)
[2022-08-18] MEDS ORDERED: methylPREDNISolone sod succ 125mg/2ml vial IV SCH (20:00)
[2022-08-18] MEDS ORDERED: temazepam 15mg capsule PO PRN (21:00)
--- NOTE | 2022-08-18 21:28 | NUR ---
PT EDUCATED ON NEED FOR OXYGEN USE. PT VERBALIZED UNDERSTANDING BEFORE LEAVING AMA
[2022-08-19] MEDS ORDERED: CefTRIAXone 2gm/D5W 50ml BAG 50 ML IV SCH (08:00)
[2022-08-19] MEDS ORDERED: azithromycin/NS 500mg/250ml 250 ML IV SCH (08:00)
== END 2022-08-18 21:34 | disposition left against medical advice (07) | DRG 139 ==
LOC: ER 12:00 → ED HOLD 16:29
PROVIDERS: ADMIT Internal Medicine; ATTEND Internal Medicine
PROC: B32T1ZZ Computerized Tomography (CT Scan) of Left Pulmonary Artery using Low Osmolar Contrast (ICD-10-PCS; principal; 2022-08-18)
PROC: B3201ZZ Computerized Tomography (CT Scan) of Thoracic Aorta using Low Osmolar Contrast (ICD-10-PCS; 2022-08-18)
PROC: B32S1ZZ Computerized Tomography (CT Scan) of Right Pulmonary Artery using Low Osmolar Contrast (ICD-10-PCS; 2022-08-18)
DX: J18.9 Pneumonia, unspecified organism (principal); J96.20 Acute and chronic respiratory failure, unspecified whether with hypoxia or hypercapnia; I50.43 Acute on chronic combined systolic (congestive) and diastolic (congestive) heart failure; E78.00 Pure hypercholesterolemia, unspecified; I11.0 Hypertensive heart disease with heart failure; J44.0 Chronic obstructive pulmonary disease with (acute) lower respiratory infection; F17.200 Nicotine dependence, unspecified, uncomplicated; G43.909 Migraine, unspecified, not intractable, without status migrainosus; Z20.822 Contact with and (suspected) exposure to COVID-19; G47.30 Sleep apnea, unspecified; K21.9 Gastro-esophageal reflux disease without esophagitis; Z53.29 Procedure and treatment not carried out because of patient's decision for other reasons; M19.90 Unspecified osteoarthritis, unspecified site; M54.9 Dorsalgia, unspecified; F32.A Depression, unspecified; G89.29 Other chronic pain; E11.51 Type 2 diabetes mellitus with diabetic peripheral angiopathy without gangrene; J44.1 Chronic obstructive pulmonary disease with (acute) exacerbation; I25.10 Atherosclerotic heart disease of native coronary artery without angina pectoris; I25.2 Old myocardial infarction; Z82.49 Family history of ischemic heart disease and other diseases of the circulatory system; Z82.5 Family history of asthma and other chronic lower respiratory diseases; Z90.710 Acquired absence of both cervix and uterus; Z95.5 Presence of coronary angioplasty implant and graft; Z79.52 Long term (current) use of systemic steroids; Z88.7 Allergy status to serum and vaccine; Z88.8 Allergy status to other drugs, medicaments and biological substances; Z71.6 Tobacco abuse counseling
CPT/HCPCS: 36415; 36600; 71046; 71275; 80053; 82803; 83036; 83605; 83880; 84145; 84484; 85018; 85025; 87040; 87081; 87502; 87503; 87635; 94640; 94760; 96361; 96365; 96368; 96375; 99285; G0378; J0456; J0696; J2270; J2405; J2930; J3475; J3490; J7030; Q9967

== ENCOUNTER 2022-08-24 04:05 | Inpatient (IN) | payer MEDICAID ==
[~2022-08-24] VITALS: Ht 165.1 cm; Wt 81.0 kg
[~2022-08-24 04:05] MED LIST changes: -AZIT500T9 PO; +BUDE10.26 IH; -CLOP75TA33 PO; +CLOP75TA34 PO; -DULO-31 PO; +DULO60CA65 PO; +FLUT16SP11 NS; -FLUT16SP20 NAS; +HYDR-3686 PO; -ISOS60TA71 PO; -LOP25T PO; +LORA10TA7 PO; -METH4TAB81 PO; +METO25TA6 PO; +NITR0.4T48 SL; -SIMV-42 PO; -TIOT18CA3 INH; +TIOT4MIS2 INH; +TOPI50TA24 PO
[2022-08-24] MEDS ORDERED: ipratropium 0.5 MG/2.5ML nebule IH ONE (04:15)
[2022-08-24] MEDS ORDERED: albuterol 2.5 MG/3 ML nebule CONTNEB PRN (04:15)
[2022-08-24] MEDS ORDERED: methylPREDNISolone sod succ 125mg/2ml vial IV ONE (04:15)
[2022-08-24 04:23] LABS: ABG HCO3 28.8 mmol/L (22.0-26.0); ABG PCO2 (T) 64.8 mmHg (32.0-45.0); ABG PO2 (T) 90.5 mmHg (75.0-100.0); ALLEN'S TEST POSITIVE; FCOHb 1.4 % (0.0-3.9); FLOW 15 L/min; FMetHb 0.4 % (0.0-1.5); FO2Hb 94.3 % (94-97); TOTAL HEMOGLOBIN 15.3 G/dl (12.0-16.0)
[2022-08-24] MEDS ORDERED: diazepam inj 5 MG/ML inj. IV ONE (04:25)
[2022-08-24 04:54] LABS: ALANINE AMINOTRANSFERASE 21 U/L (12-78); ALBUMIN 3.2 G/DL (3.4-5.0); ALBUMIN/GLOBULIN RATIO 0.7 (1.1-1.5); ALKALINE PHOSPHATASE 98 IU/L (46-116); ANION GAP 8 (8-16); ASPARTATE AMINO TRANSFERASE 17 U/L (10-37); BILIRUBIN,TOTAL 0.4 MG/DL (0.1-1.0); BLOOD UREA NITROGEN 13 MG/DL (7-18); BUN/CREATININE RATIO 14.1 (6.6-38.0); CALCIUM 9.4 MG/DL (8.5-10.1); CHLORIDE 100 MMOL/L (99-107); CREATININE 0.92 MG/DL (0.40-0.90); GLUCOSE 109 MG/DL (70-104); POTASSIUM 3.7 MMOL/L (3.5-5.1); SODIUM 137 MMOL/L (135-145); TOTAL CARBON DIOXIDE 28.7 MMOL/L (24-32); TOTAL PROTEIN 7.7 G/DL (6.4-8.2); eGFR 61 ML/MIN
[2022-08-24 04:56] LABS: MAGNESIUM 2.5 MG/DL (1.5-2.4)
[2022-08-24 05:00] LABS: BASOPHILS # (AUTO) 0.1 X10'3 (0-0.2); BASOPHILS % (AUTO) 0.7 % (0-1); EOSINOPHILS % (AUTO) 0.1 % (0-6); HEMOGLOBIN 14.9 g/dl (12.0-16.0); LYMPHOCYTES # (AUTO) 1.9 X10'3 (1.1-4.8); LYMPHOCYTES % (AUTO) 9.2 % (21-51); MEAN CORPUSCULAR HEMOGLOBIN 30.3 PG (27.0-31.0); MEAN CORPUSCULAR HGB CONC 31.8 g/dL (33.0-36.5); MEAN CORPUSCULAR VOLUME 95.3 FL (78-98); MEAN PLATELET VOLUME 6.7 FL (7.4-10.4); MONOCYTES # (AUTO) 0.9 X10'3 (0-0.9); MONOCYTES % (AUTO) 4.6 % (2-12); NEUTROPHILS # (AUTO) 17.7 X10'3 (1.8-7.7); NEUTROPHILS % (AUTO) 85.4 % (42-75); PLATELET COUNT 317 X10'3 (140-440); RED BLOOD COUNT 4.93 X10'6 (4.20-5.60); RED CELL DISTRIBUTION WIDTH 15.7 % (11.5-14.5); WHITE BLOOD COUNT 20.7 X10'3 (4.5-11.0)
[2022-08-24] MEDS ORDERED: levoFLOXACIN-Levaquin 750MG/D5 150 ML IV ONE (05:10)
[2022-08-24 05:50] LABS: ABG BASE EXCESS -3.1 mmol/L (-2.0-2.0); ABG HCO3 23.9 mmol/L (22.0-26.0); ABG OXYGEN SATURATION 99.6 % (94-97); ABG PCO2 (T) 50.9 mmHg (32.0-45.0); ABG PO2 (T) 253.8 mmHg (75.0-100.0); ALLEN'S TEST POSITIVE; FCOHb 1.2 % (0.0-3.9); FMetHb 0.4 % (0.0-1.5); PATIENT TEMPERATURE 37.3; RESPIRATORY RATE 12 b/min; TOTAL HEMOGLOBIN 14.8 G/dl (12.0-16.0)
--- NOTE | 2022-08-24 06:53 | NUR ---
Patient is pulling off CPAP stating that she can't breathe. Patient was saturating fine before she started to pull off the mask. Educated patient to keep the mask on and she refused. Paged respiratory to troubleshoot respiratory settings.
[2022-08-24] MEDS ORDERED: magnesium 2GM in 50ml NS 50 ML IV PRN (07:40)
[2022-08-24] MEDS ORDERED: acetaminophen 325mg tablet PO PRN (07:40)
[2022-08-24] MEDS ORDERED: PERFLUTREN PROTEIN-A MICROSPHR (Optison) 0.22 MG/ML 3ML VIAL IV PRN (07:40)
[2022-08-24] MEDS ORDERED: ondansetron/PF 4mg/2ml inj IV PRN (07:40)
[2022-08-24] MEDS ORDERED: magnesium 4gm in 100ml NS 100 ML IV PRN (07:40)
[2022-08-24] MEDS ORDERED: ipratropium/albuterol 3ml nebule NEB PRN (07:40)
[2022-08-24] MEDS ORDERED: potassium Cl 40MEQ/1/2NS 520ml 520 ML IV PRN (07:40)
[2022-08-24] MEDS ORDERED: magnesium Cl slow-release 64mg tablet PO PRN ×2 (07:40)
[2022-08-24] MEDS ORDERED: potassium Cl 20 mEq SR tablet PO PRN ×2 (07:40)
[2022-08-24 07:52] LABS: CLARITY,URINE CLOUDY (Clear); COLOR,URINE YELLOW (Yellow); GLUCOSE, URINE >=1000 mg/dl (Neg); KETONES,URINE NEGATIVE (Neg); LEUKOCYTE ESTERASE ,URINE NEGATIVE (Neg); NITRITES, URINE NEGATIVE (Neg); OCCULT BLOOD,URINE TRACE-INTACT (Neg); PROTEIN,URINE TRACE mg/dl (Neg); UROBILINOGEN,URINE 0.2 E.U/dL (0.2-1.0)
[2022-08-24 08:00] LABS: UA COLLECTION TYPE CLN CATCH MIDSTREAM
[2022-08-24] MEDS ORDERED: K and/or MAG REPLACEMENT MC SCH (08:00)
[2022-08-24] MEDS ORDERED: CefTRIAXone/D5W-Rocephin 1gm 50 ML IV SCH (08:00)
[2022-08-24] MEDS ORDERED: morphine 4 MG/ML inj SYRINge IV ONE (08:00)
[2022-08-24] MEDS ORDERED: heparin, porcine 5000 units/ml vial SQ SCH (08:00)
[2022-08-24] MEDS ORDERED: azithromycin/NS 500mg/250ml 250 ML IV SCH (08:00)
[2022-08-24 08:13] LABS: MUCUS STRANDS FEW /LPF (Neg); SQUAMOUS EPITHELIAL CELL,UR MANY /LPF (FEW)
[2022-08-24 08:15] LABS: HYALINE CASTS 0-3 /LPF (NEGATIVE)
[2022-08-24 08:17] LABS: YEAST MANY /HPF (NEGATIVE)
[2022-08-24 08:18] LABS: BACTERIA,URINE FEW /HPF (Neg); RBC,URINE 0-2 /HPF (0-2); WBC,URINE 0-4 /HPF (0-4)
[2022-08-24] MEDS: ipratropium/albuterol 3ml nebule NEB PRN ×2 (08:18→12:37)
[2022-08-24] MEDS ORDERED: ROFL500T7 PO (10:19)
[2022-08-24] MEDS ORDERED: PRIM50TA27 PO (10:19)
[2022-08-24] MEDS ORDERED: CLOT12CR TOP (10:19)
[2022-08-24] MEDS ORDERED: HYDROcodone/acetaminophen 5mg/325mg tablet PO ONE (12:50)
[2022-08-24 14:00] VITALS: BP_DIAS 75
[2022-08-24] MEDS ORDERED: loratadine 10mg tablet PO SCH (15:35)
[2022-08-24] MEDS ORDERED: HYDROcodone/acetaminophen 10/325mg tab PO PRN (15:35)
[2022-08-24] MEDS ORDERED: clonazePAM 0.5mg tablet PO PRN (15:35)
[2022-08-24] MEDS ORDERED: clopidogrel 75mg tablet PO SCH (15:35)
[2022-08-24] MEDS ORDERED: morphine 4 MG/ML inj SYRINge IV PRN (15:35)
[2022-08-24] MEDS ORDERED: nitroGLYCERIN 0.4mg SUBLingual tab SL PRN (15:35)
[2022-08-24] MEDS ORDERED: hydrOXYzine 25 MG tablet PO PRN (15:35)
--- NOTE | 2022-08-24 16:07 | NUR ---
Patient was agitated and stated that she didnt want the norco because "it only took the pain away for little while." She stated "she needs something that helps her back pain alot more than norco" . She also stated that she was gonna leave AMA if it didnt get resolved. Hospitalist was paged with concerns attached.
[2022-08-24] MEDS ORDERED: allopurinol 100mg tablet PO SCH (16:39)
[2022-08-24] MEDS: ipratropium/albuterol 3ml nebule NEB SCH ×2 (17:16→19:43)
[2022-08-24] MEDS ORDERED: metoprolol tartrate 25mg tablet PO SCH (17:30)
[2022-08-24 17:34] VITALS: BP_SYST 108
--- NOTE | 2022-08-24 18:30 | NUR ---
PT STATED SHE WANTS TO GO HOME, AND THAT SHE DOES NOT LIKE BEING IN THE HOSPITAL. STAFF TOLD HER THEY WOULD MAKE HER MORE COMFORTABLE WITH A HOSPITAL BED AND SHE SEEMED TO CALM DOWN AND REMAINED SITTING AT THE BEDSIDE. PT WAS GIVEN DINNER TRAY
[2022-08-24] MEDS ORDERED: topiramate 25mg tablet PO SCH (20:00)
[2022-08-24] MEDS ORDERED: clotrimazole topical cream 15gm tube TP SCH (20:00)
[2022-08-24] MEDS ORDERED: ipratropium 0.5 MG/2.5ML nebule IH SCH (21:00)
[2022-08-24] MEDS ORDERED: temazepam 15mg capsule PO PRN (21:00)
[2022-08-24] MEDS ORDERED: primidone 50mg tablet PO SCH (21:00)
[2022-08-24] MEDS ORDERED: gabapentin 400mg capsule PO SCH (21:00)
--- NOTE | 2022-08-24 22:08 | NUR ---
PT REFUSED BIPAP AND CONTINUALLY REQUESTED TO LEAVE AMA. SHE WAS AWARE THAT IT WAS NOT SAFE TO LEAVE THE HOSPITAL AND SIGNED THE AMA DOCUMENT. SHE REQUESTED A TAXI TO TAKE HER BACK TO HER HOME ADDRESS. NOTIFIED THAT PT WAS LEAVING AMA
[2022-08-25] MEDS ORDERED: ROFLUMILAST 500 MCG PO SCH (08:00)
[2022-08-25] MEDS ORDERED: aspirin 81mg, enteric-coated 1 TAB TABLET.DR PO SCH (08:00)
[2022-08-25] MEDS ORDERED: duloxetine 30mg CAPSULE.DR PO SCH (08:00)
[2022-08-25] MEDS ORDERED: STEGLATRO 15 MG PO SCH (08:00)
== END 2022-08-24 22:12 | disposition left against medical advice (07) | DRG 139 ==
LOC: ER 04:06 → ED HOLD 07:49
PROVIDERS: ADMIT Internal Medicine; ATTEND Internal Medicine
PROC: 5A09357 Assistance with Respiratory Ventilation, Less than 24 Consecutive Hours, Continuous Positive Airway Pressure (ICD-10-PCS; principal; 2022-08-24)
DX: J18.9 Pneumonia, unspecified organism (principal); J96.21 Acute and chronic respiratory failure with hypoxia; I50.9 Heart failure, unspecified; I11.0 Hypertensive heart disease with heart failure; E78.00 Pure hypercholesterolemia, unspecified; F17.200 Nicotine dependence, unspecified, uncomplicated; Z20.822 Contact with and (suspected) exposure to COVID-19; I25.10 Atherosclerotic heart disease of native coronary artery without angina pectoris; F32.A Depression, unspecified; F41.9 Anxiety disorder, unspecified; G43.909 Migraine, unspecified, not intractable, without status migrainosus; G47.30 Sleep apnea, unspecified; Z53.29 Procedure and treatment not carried out because of patient's decision for other reasons; G89.29 Other chronic pain; K21.9 Gastro-esophageal reflux disease without esophagitis; M10.9 Gout, unspecified; M19.90 Unspecified osteoarthritis, unspecified site; M54.9 Dorsalgia, unspecified; J44.0 Chronic obstructive pulmonary disease with (acute) lower respiratory infection; J44.1 Chronic obstructive pulmonary disease with (acute) exacerbation; I25.2 Old myocardial infarction; Z79.52 Long term (current) use of systemic steroids; Z82.49 Family history of ischemic heart disease and other diseases of the circulatory system; Z82.5 Family history of asthma and other chronic lower respiratory diseases; Z83.3 Family history of diabetes mellitus; Z90.710 Acquired absence of both cervix and uterus; Z95.5 Presence of coronary angioplasty implant and graft; Z79.84 Long term (current) use of oral hypoglycemic drugs; Z88.7 Allergy status to serum and vaccine; Z88.8 Allergy status to other drugs, medicaments and biological substances; Z79.899 Other long term (current) drug therapy
CPT/HCPCS: 36415; 36600; 71045; 80053; 81001; 82803; 83605; 83735; 84484; 85018; 85025; 87040; 87502; 87503; 87635; 93005; 93306; 94640; 94660; 94760; 96374; 96375; 99291; A7015; C9803; G0378; J0456; J0696; J1644; J1956; J2270; J2930; J3360; J7040

== ENCOUNTER 2022-09-06 09:14 | Emergency (ER) | payer MEDICAID ==
[~2022-09-06] VITALS: Ht 162.6 cm; Wt 83.6 kg
[~2022-09-06 09:14] MED LIST changes: +CLOT12CR TOP; -FLUT16SP11 NS; -PANT40TA54 PO; +PRIM50TA27 PO; +ROFL500T7 PO
[2022-09-06] MEDS ORDERED: oxyCODONE/APAP 10/325mg tablet PO ONE (09:55)
[2022-09-06] MEDS ORDERED: ipratropium/albuterol 3ml nebule NEB ONE (09:55)
[2022-09-06 10:26] LABS: BASOPHILS % (AUTO) 0.3 % (0-1); EOSINOPHILS % (AUTO) 0.5 % (0-6); HEMATOCRIT 40.5 % (35.0-45.0); HEMOGLOBIN 13.3 g/dl (12.0-16.0); LYMPHOCYTES % (AUTO) 11.3 % (21-51); MEAN CORPUSCULAR HGB CONC 32.7 g/dL (33.0-36.5); MEAN CORPUSCULAR VOLUME 94.7 FL (78-98); MONOCYTES # (AUTO) 0.3 X10'3 (0-0.9); MONOCYTES % (AUTO) 3.8 % (2-12); NEUTROPHILS # (AUTO) 7.6 X10'3 (1.8-7.7); NEUTROPHILS % (AUTO) 84.1 % (42-75); PLATELET COUNT 333 X10'3 (140-440); RED BLOOD COUNT 4.28 X10'6 (4.20-5.60); RED CELL DISTRIBUTION WIDTH 15.6 % (11.5-14.5)
[2022-09-06 10:42] LABS: ALANINE AMINOTRANSFERASE 21 U/L (12-78); ALBUMIN 2.7 G/DL (3.4-5.0); ALBUMIN/GLOBULIN RATIO 0.8 (1.1-1.5); ALKALINE PHOSPHATASE 101 IU/L (46-116); ANION GAP 8 (8-16); ASPARTATE AMINO TRANSFERASE 16 U/L (10-37); BILIRUBIN,TOTAL 0.4 MG/DL (0.1-1.0); BLOOD UREA NITROGEN 8 MG/DL (7-18); BUN/CREATININE RATIO 11.1 (6.6-38.0); CALCIUM 8.7 MG/DL (8.5-10.1); CHLORIDE 107 MMOL/L (99-107); CREATININE 0.72 MG/DL (0.40-0.90); GLUCOSE 105 MG/DL (70-104); POTASSIUM 3.9 MMOL/L (3.5-5.1); SODIUM 141 MMOL/L (135-145); TOTAL PROTEIN 6.2 G/DL (6.4-8.2); eGFR 81 ML/MIN
[2022-09-06] MEDS ORDERED: furosemide 20MG tablet PO ONE (11:00)
[2022-09-06] MEDS ORDERED: HYDROcodone/acetaminophen 10/325mg tab PO ONE (11:00)
[2022-09-06] MEDS ORDERED: PRED20TA PO (11:01)
[2022-09-06] MEDS ORDERED: FURO-150 PO (11:01)
[2022-09-06 11:18] VITALS: BP 127/85
== END 2022-09-06 11:19 | disposition home or self-care (01) ==
LOC: ER 09:14
DX: I11.0 Hypertensive heart disease with heart failure (principal); I50.9 Heart failure, unspecified; J44.9 Chronic obstructive pulmonary disease, unspecified; G43.909 Migraine, unspecified, not intractable, without status migrainosus; K21.9 Gastro-esophageal reflux disease without esophagitis; M19.90 Unspecified osteoarthritis, unspecified site; G89.29 Other chronic pain; M54.50 Low back pain, unspecified; Z88.7 Allergy status to serum and vaccine; Z88.5 Allergy status to narcotic agent; Z88.6 Allergy status to analgesic agent; Z90.710 Acquired absence of both cervix and uterus
CPT/HCPCS: 36415; 71045; 80053; 83880; 84145; 84484; 85025; 93005; 94640; 94760; 99285

== ENCOUNTER 2022-09-06 17:10 | Emergency (ER) | payer MEDICAID ==
[~2022-09-06] VITALS: Ht 162.6 cm; Wt 83.6 kg
[~2022-09-06 17:10] MED LIST changes: +FURO-150 PO; +PRED20TA PO
[2022-09-06 17:21] VITALS: BP 104/66
[2022-09-06] MEDS ORDERED: orphenadrine citrate 60mg/2ml inj. IM ONE (17:45)
[2022-09-06] MEDS ORDERED: oxyCODONE/APAP 10/325mg tablet PO ONE (17:50)
--- NOTE | 2022-09-06 17:56 | NUR ---
im given po refused
== END 2022-09-06 18:13 | disposition home or self-care (01) ==
LOC: ER 17:11
DX: M54.9 Dorsalgia, unspecified (principal); I11.0 Hypertensive heart disease with heart failure; E78.00 Pure hypercholesterolemia, unspecified; J44.9 Chronic obstructive pulmonary disease, unspecified; K21.9 Gastro-esophageal reflux disease without esophagitis; E11.9 Type 2 diabetes mellitus without complications; G89.29 Other chronic pain; Z88.6 Allergy status to analgesic agent; Z79.899 Other long term (current) drug therapy; Z79.82 Long term (current) use of aspirin; Z79.1 Long term (current) use of non-steroidal anti-inflammatories (NSAID); Z79.2 Long term (current) use of antibiotics
CPT/HCPCS: 96372; 99283; J2360

== ENCOUNTER 2022-09-20 16:12 | Emergency (ER) | payer MEDICAID ==
[~2022-09-20] VITALS: Ht 152.4 cm; Wt 79.5 kg
[~2022-09-20 16:12] MED LIST changes: -FURO-150 PO
[2022-09-20 16:19] VITALS: BP 172/107
[2022-09-20] MEDS ORDERED: cyclobenzaprine 10mg tablet PO ONE (17:45)
[2022-09-20] MEDS ORDERED: ketorolac tromethamine 15mg/ml inj. IM ONE (17:45)
== END 2022-09-20 18:02 | disposition home or self-care (01) ==
LOC: ER 16:12
DX: Z00.00 Encounter for general adult medical examination without abnormal findings (principal); G89.29 Other chronic pain; M54.50 Low back pain, unspecified; G43.909 Migraine, unspecified, not intractable, without status migrainosus; I11.0 Hypertensive heart disease with heart failure; I50.9 Heart failure, unspecified; E78.00 Pure hypercholesterolemia, unspecified; J44.9 Chronic obstructive pulmonary disease, unspecified; K21.9 Gastro-esophageal reflux disease without esophagitis; Z88.7 Allergy status to serum and vaccine; Z88.5 Allergy status to narcotic agent; Z90.710 Acquired absence of both cervix and uterus
CPT/HCPCS: 99283

== ENCOUNTER 2022-09-25 20:50 | Inpatient (IN) | payer MEDICAID ==
[~2022-09-25] VITALS: Ht 167.6 cm; Wt 88.3 kg
[~2022-09-25 20:50] MED LIST changes: +etomidate 2mg/ml inj. ONE; +rocuronium 10mg/ml inj IV ONE
[2022-09-25 21:20] LABS: ABG BASE EXCESS 0.6 mmol/L (-2.0-2.0); ABG HCO3 24.6 mmol/L (22.0-26.0); ABG OXYGEN SATURATION 97.1 % (94-97); ABG PCO2 (T) 37.9 mmHg (32.0-45.0); ABG PO2 (T) 90.7 mmHg (75.0-100.0); ALLEN'S TEST POSITIVE; FCOHb 1.1 % (0.0-3.9); FMetHb 0.3 % (0.0-1.5); FO2Hb 95.7 % (94-97)
[2022-09-25] MEDS ORDERED: methylPREDNISolone sod succ 125mg/2ml vial IV ONE (21:40)
[2022-09-25 21:42] LABS: EOSINOPHILS % (AUTO) 0 % (0-6); HEMATOCRIT 39.6 % (35.0-45.0); HEMOGLOBIN 12.9 g/dl (12.0-16.0); LYMPHOCYTES # (AUTO) 1.4 X10'3 (1.1-4.8); MONOCYTES # (AUTO) 1.1 X10'3 (0-0.9)
[2022-09-25 21:46] LABS: BASOPHILS % (AUTO) 0.2 % (0-1); LYMPHOCYTES % (AUTO) 8.2 % (21-51); MEAN CORPUSCULAR HEMOGLOBIN 31.2 PG (27.0-31.0); MEAN CORPUSCULAR HGB CONC 32.6 g/dL (33.0-36.5); MEAN CORPUSCULAR VOLUME 95.8 FL (78-98); MEAN PLATELET VOLUME 7.4 FL (7.4-10.4); MONOCYTES % (AUTO) 6.9 % (2-12); NEUTROPHILS % (AUTO) 84.7 % (42-75); PLATELET COUNT 205 X10'3 (140-440); RED BLOOD COUNT 4.13 X10'6 (4.20-5.60); RED CELL DISTRIBUTION WIDTH 16.5 % (11.5-14.5); WHITE BLOOD COUNT 16.6 X10'3 (4.5-11.0)
[2022-09-25 22:00] LABS: ALANINE AMINOTRANSFERASE 17 U/L (12-78); ALBUMIN 2.8 G/DL (3.4-5.0); ALBUMIN/GLOBULIN RATIO 0.7 (1.1-1.5); ALKALINE PHOSPHATASE 128 IU/L (46-116); ANION GAP 9 (8-16); ASPARTATE AMINO TRANSFERASE 22 U/L (10-37); BILIRUBIN,TOTAL 0.8 MG/DL (0.1-1.0); BLOOD UREA NITROGEN 16 MG/DL (7-18); BUN/CREATININE RATIO 25.4 (6.6-38.0); CALCIUM 8.8 MG/DL (8.5-10.1); CHLORIDE 104 MMOL/L (99-107); CREATININE 0.63 MG/DL (0.40-0.90); GLUCOSE 206 MG/DL (70-104); POTASSIUM 3.7 MMOL/L (3.5-5.1); SODIUM 138 MMOL/L (135-145); TOTAL CARBON DIOXIDE 24.9 MMOL/L (24-32); TOTAL PROTEIN 6.6 G/DL (6.4-8.2); eGFR > 90 ML/MIN
[2022-09-25 22:01] LABS: D-DIMER 2.94 MG/L FEU (0-0.50)
[2022-09-25] MEDS ORDERED: LORazepam 2 mg/ml vial IV ONE (22:10)
[2022-09-25] MEDS ORDERED: succinylcholine 20mg/ml inj IV ONE (22:19)
[2022-09-25] MEDS ORDERED: midazolam 100mg in NS 100ml 100 ML IV PRN (22:35)
--- NOTE | 2022-09-25 22:35 | NUR ---
2230 pt given 30mg of Etomdate and 100mg Succ via IVP, pt intubated with 7.5 ETT at 24 cm at lips on 1st attempt w/o difficulty, good color change, bilat. breathsounds noted and no air aucultated in epigastic area, RT x2, RN x2 and MD at bedside during intubation.
[2022-09-25] MEDS ORDERED: midazolam 1 mg/ML 2ml injection ONE (22:45)
[2022-09-25] MEDS ORDERED: LIDOcaine 2% 10ml TOPICAL JELLY (Urojet) TP ONE (22:45)
[2022-09-25] MEDS ORDERED: POTASSIUM BICARB 20meq eff tab 20 MEQ TABLET.EFF PO PRN ×2 (22:45)
[2022-09-25] MEDS ORDERED: morphine 2 MG/ML inj. syringe IV PRN (22:45)
[2022-09-25] MEDS ORDERED: MIDAZolam 5mg/ml 2ml vial IV ONE (22:45)
[2022-09-25] MEDS ORDERED: morphine 4 MG/ML inj SYRINge IV PRN (22:45)
[2022-09-25] MEDS ORDERED: acetaminophen 325mg tablet PO PRN (22:45)
[2022-09-25] MEDS ORDERED: magnesium hydroxide 30ml (MOM) UD suspension PO PRN (22:45)
[2022-09-25] MEDS ORDERED: midazolam 1 mg/ML 2ml injection IV ONE (22:55)
[2022-09-25 22:59] VITALS: BP 100/69
[2022-09-25] MEDS ORDERED: FENTANYL-0.9 % NACL/PF 100 ML IV SCH (23:00)
[2022-09-25] MEDS: FENTANYL-0.9 % NACL/PF 100 ML IV PRN (23:03)
[2022-09-25] MEDS: normal saline 1000ml 1,000 ML IV SCH (23:35)
[2022-09-25 23:46] LABS: ABG BASE EXCESS 0.5 mmol/L (-2.0-2.0); ABG HCO3 24.6 mmol/L (22.0-26.0); ABG OXYGEN SATURATION 97.6 % (94-97); ABG PCO2 (T) 42.2 mmHg (32.0-45.0); ABG PO2 (T) 115.2 mmHg (75.0-100.0); FMetHb 0.4 % (0.0-1.5); FO2Hb 96.2 % (94-97); PATIENT TEMPERATURE 39.7; PEEP 5 cm H2O; RESPIRATORY RATE 24 b/min; TIDAL VOLUME 350 mL; TOTAL HEMOGLOBIN 12.9 G/dl (12.0-16.0)
[2022-09-26] VITALS (30 sets, daily range): BP systolic 78–134; BP diastolic 48–95
[2022-09-26] MEDS: piperacillin/tazo 3.375gm/50ml 50 ML IV SCH ×3 (00:13→16:49)
[2022-09-26] MEDS: acetaminophen 325mg tablet PO PRN ×4 (00:14→19:25)
[2022-09-26 01:00] LABS: HEMOGLOBIN 11.8 g/dl (12.0-16.0)
[2022-09-26 01:05] LABS: BASOPHILS % (AUTO) 0.1 % (0-1); EOSINOPHILS % (AUTO) 0 % (0-6); HEMATOCRIT 36.4 % (35.0-45.0); LYMPHOCYTES # (AUTO) 0.9 X10'3 (1.1-4.8); LYMPHOCYTES % (AUTO) 6.3 % (21-51); MEAN CORPUSCULAR HEMOGLOBIN 30.7 PG (27.0-31.0); MEAN CORPUSCULAR HGB CONC 32.5 g/dL (33.0-36.5); MEAN CORPUSCULAR VOLUME 94.6 FL (78-98); MEAN PLATELET VOLUME 7.2 FL (7.4-10.4); MONOCYTES # (AUTO) 0.8 X10'3 (0-0.9); MONOCYTES % (AUTO) 5.6 % (2-12); NEUTROPHILS # (AUTO) 13.1 X10'3 (1.8-7.7); PLATELET COUNT 196 X10'3 (140-440); RED BLOOD COUNT 3.85 X10'6 (4.20-5.60); RED CELL DISTRIBUTION WIDTH 16.3 % (11.5-14.5); WHITE BLOOD COUNT 14.9 X10'3 (4.5-11.0)
[2022-09-26] MEDS ORDERED: NORepinephrine inj. 32 MG in normal saline 250ml IV soln 218 ML IV SCH (01:35)
[2022-09-26 02:11] LABS: ALBUMIN 2.5 G/DL (3.4-5.0); ANION GAP 11 (8-16); BLOOD UREA NITROGEN 19 MG/DL (7-18); BUN/CREATININE RATIO 25.7 (6.6-38.0); CALCIUM 8.6 MG/DL (8.5-10.1); CHLORIDE 103 MMOL/L (99-107); CREATININE 0.74 MG/DL (0.40-0.90); GLUCOSE 244 MG/DL (70-104); MAGNESIUM 1.6 MG/DL (1.5-2.4); PHOSPHORUS 2.3 MG/DL (2.3-4.5); POTASSIUM 3.4 MMOL/L (3.5-5.1); SODIUM 138 MMOL/L (135-145); TOTAL CARBON DIOXIDE 23.7 MMOL/L (24-32); eGFR 79 ML/MIN
--- NOTE | 2022-09-26 03:10 | NUR ---
Report called to ICU Addendum: 09/26/22 at 0427 by ISMAEL 0330 report called to ICU Addendum: 09/26/22 at 0428 by ISMAEL report called to ICU at 0330
--- NOTE | 2022-09-26 03:15 | NUR ---
pt started on Levo gtt at this time Addendum: 09/26/22 at 0426 by ISMAEL [id number] pt started on Levo gtt at this time
--- NOTE | 2022-09-26 03:25 | NUR ---
0300 Central line ok to use per Dr Marr after she reviewed chest xay.
[2022-09-26] MEDS ORDERED: iohexol 350MG/ML 100ml bottle IV ONE (03:26)
--- NOTE | 2022-09-26 04:20 | NUR ---
[address] scan then ICU with RT x1, RN x1 Addendum: 09/26/22 at 2010 by ISMAEL pt transported to CT scan and then ICU at [id number]
[2022-09-26] MEDS ORDERED: DULO30CA52 PO (04:37)
[2022-09-26] MEDS ORDERED: CYCL-1 PO (04:37)
[2022-09-26 04:39] LABS: OXYGEN SATURATION (MIXED VEN) 85.4 % (60-80)
[2022-09-26 04:39] LABS: ABG BASE EXCESS -1.6 mmol/L (-2.0-2.0); ABG HCO3 23.7 mmol/L (22.0-26.0); ABG OXYGEN SATURATION 97.3 % (94-97); ABG PCO2 (T) 43.7 mmHg (32.0-45.0); ABG PO2 (T) 103.6 mmHg (75.0-100.0); ALLEN'S TEST Modified; FCOHb 0.7 % (0.0-3.9); FMetHb 0.4 % (0.0-1.5); FO2Hb 96.2 % (94-97); PATIENT TEMPERATURE 37.8; PEEP 5 cm H2O; RESPIRATORY RATE 24 b/min; TIDAL VOLUME 350 mL; TOTAL HEMOGLOBIN 13.1 G/dl (12.0-16.0)
--- NOTE | 2022-09-26 05:01 | NUR ---
Patient admitted to room 2007 on ventilator. Patient on levophed, fentanyl, and versed. HR in sinus tachycardia with HR in 110s. Patient home medications listed and sent down to pharmacy, $420 dollars in purse and will be sent down to [facility].
[2022-09-26] MEDS ORDERED: magnesium 4gm in 100ml NS 100 ML IV PRN (05:45)
[2022-09-26] MEDS ORDERED: sodium phosphate inj. 15 MMOL in dextrose 5%-water 250 ML IV PRN (05:45)
[2022-09-26] MEDS ORDERED: magnesium 2GM in 50ml NS 50 ML IV PRN (05:45)
[2022-09-26] MEDS ORDERED: sodium phosphate inj. 30 MMOL in dextrose 5%-water 250 ML IV PRN (05:45)
--- NOTE | 2022-09-26 06:20 | NUR ---
Problems reprioritized. Patient report given, questions answered & plan of care reviewed with Casey.
[2022-09-26] MEDS ORDERED: glucagon, human recombinant 1mg kit SUBCUT PRN (06:30)
[2022-09-26] MEDS ORDERED: MESSAGE TO PHARMACY PO ONE (06:30)
[2022-09-26] MEDS ORDERED: dextrose 50%-water 50ml dispensing syringe IV PRN ×2 (06:30)
[2022-09-26] MEDS ORDERED: DEXTROSE 15 GM of carb/4 tabs (each vial/BOTTLE has 4 tablets) PO PRN ×2 (06:30)
[2022-09-26 06:31] LABS: BASOPHILS % (AUTO) 0.1 % (0-1); EOSINOPHILS % (AUTO) 0 % (0-6); HEMATOCRIT 35.4 % (35.0-45.0); HEMOGLOBIN 11.5 g/dl (12.0-16.0); LYMPHOCYTES # (AUTO) 1.2 X10'3 (1.1-4.8); LYMPHOCYTES % (AUTO) 7.1 % (21-51); MEAN CORPUSCULAR HGB CONC 32.5 g/dL (33.0-36.5); MEAN CORPUSCULAR VOLUME 95.3 FL (78-98); MEAN PLATELET VOLUME 7.1 FL (7.4-10.4); MONOCYTES # (AUTO) 0.9 X10'3 (0-0.9); MONOCYTES % (AUTO) 5.1 % (2-12); NEUTROPHILS # (AUTO) 15.1 X10'3 (1.8-7.7); NEUTROPHILS % (AUTO) 87.7 % (42-75); PLATELET COUNT 206 X10'3 (140-440); RED BLOOD COUNT 3.72 X10'6 (4.20-5.60); RED CELL DISTRIBUTION WIDTH 16.5 % (11.5-14.5); WHITE BLOOD COUNT 17.3 X10'3 (4.5-11.0)
[2022-09-26 06:38] LABS: ALBUMIN 2.3 G/DL (3.4-5.0); BLOOD UREA NITROGEN 19 MG/DL (7-18); BUN/CREATININE RATIO 27.1 (6.6-38.0); CALCIUM 8.2 MG/DL (8.5-10.1); GLUCOSE 226 MG/DL (70-104); MAGNESIUM 1.8 MG/DL (1.5-2.4); PHOSPHORUS 2.8 MG/DL (2.3-4.5); TOTAL CARBON DIOXIDE 27.3 MMOL/L (24-32); eGFR 84 ML/MIN
[2022-09-26 06:44] LABS: ANION GAP 9 (8-16); CHLORIDE 105 MMOL/L (99-107); POTASSIUM 3.3 MMOL/L (3.5-5.1); SODIUM 141 MMOL/L (135-145)
[2022-09-26] MEDS: enoxaparin 40mg/0.4ml syringe SUBCUT SCH (07:10)
[2022-09-26] MEDS: famotidine/PF 10 mg/ml inj IV SCH ×2 (07:11→20:28)
[2022-09-26] MEDS: insulin Lispro (HumaLOG) vial - multi-dose SQ SCH ×2 (07:45→15:18)
[2022-09-26] MEDS: K and/or MAG REPLACEMENT MC SCH (08:00)
[2022-09-26] MEDS ORDERED: K and/or MAG REPLACEMENT MC SCH (08:00)
[2022-09-26 08:22] LABS: HEMOGLOBIN A1C 5.6 % (4.5-6.2)
[2022-09-26] MEDS: potassium Cl 20mEq/100mL bag 100 ML IV PRN ×2 (09:53→11:12)
[2022-09-26] MEDS: vancomycin/NS 1 GM ADD-VANTAGE 250 ML X 1 DOSE IV SCH ×3 (11:00→22:01)
[2022-09-26] MEDS: propofol 1000mg/100ml bottle 100 ML IV SCH (11:52)
--- NOTE | 2022-09-26 12:06 | NUR ---
TF/Yordy Consults: Pt intubated admit DX septic shock and acute respiratory failure related to HCAP, T2DM A1C 5.6%, and PAD per EMR. Pt hx T2DM though recent A1C's remain in 5's down from 7's last year per EMR. Yordy 12 w/ skin intact per EMR. Pt NPO MAP 78 this AM w/ OG in place and bed scaled wt 85.4kg visualized during RD rounds this AM. Current bed scaled wt first scaled wt this admit making BMI 30.4. LBM 09/25. TF to start today per mechanical maintenance technician; recs below will monitor for TF tolerance and wt changes for further EN adjustment needs this admit. Rec: 1. Continuous TF per MD using Vital HP at 65ml/hr goal; to provide 1560ml volume/day, 1560 kcals, 1304ml water, and 136g protein 2. additional water flush 100ml Q4H; monitor serum Na 3. PALB Q /; daily scaled wts 4. routine bowel care 5. upon extubation; advance diet as medically indicated to heart healthy Addendum: 09/26/22 at [address] Amended: Links added.
[2022-09-26] MEDS: FENTANYL-0.9 % NACL/PF 100 ML IV PRN ×2 (12:13→19:25)
[2022-09-26 16:34] LABS: ABG HCO3 26.2 mmol/L (22.0-26.0); ABG OXYGEN SATURATION 93.6 % (94-97); ABG PCO2 (T) 46.6 mmHg (32.0-45.0); ABG PO2 (T) 75.5 mmHg (75.0-100.0); ALLEN'S TEST POSITIVE; FCOHb 0.5 % (0.0-3.9); FMetHb 0.3 % (0.0-1.5); FO2Hb 92.9 % (94-97); PATIENT TEMPERATURE 38.2; PEEP 5 cm H2O; RESPIRATORY RATE 24 b/min; TIDAL VOLUME 350 mL
--- NOTE | 2022-09-26 18:15 | NUR ---
Patient in room CICU 2007. I have received report from Casey STAUFFER and had the opportunity to ask questions and assume patient care.
[2022-09-26] MEDS: ipratropium/albuterol 3ml nebule NEB PRN (19:23)
[2022-09-26] MEDS: normal saline 1000ml 1,000 ML IV SCH (19:26)
[2022-09-26] MEDS: methylPREDNISolone sod succ 125mg/2ml vial IV SCH (20:28)
[2022-09-26] MEDS ORDERED: sennosides/docusate sodium tablet PO SCH (21:00)
[2022-09-26] MEDS: insulin regular, human U-100 3ml vial - multi-dose SQ SCH (21:54)
[2022-09-26] MEDS: insulin glargine (Lantus) pen - multi-dose SQ SCH (21:55)
[2022-09-26] MEDS: fentaNYL 50mcg/ml PF inj. 2,500 MCG in normal saline 250ml IV soln 200 ML IV PRN (22:38)
[2022-09-26 22:47] LABS: CLARITY,URINE SLIGHTLY CLOUDY (Clear); COLOR,URINE YELLOW (Yellow); GLUCOSE, URINE NEGATIVE (Neg); KETONES,URINE TRACE mg/dl (Neg); LEUKOCYTE ESTERASE ,URINE NEGATIVE (Neg); NITRITES, URINE NEGATIVE (Neg); OCCULT BLOOD,URINE MODERATE (Neg); PROTEIN,URINE 30 mg/dl (Neg); UROBILINOGEN,URINE 0.2 E.U/dL (0.2-1.0)
[2022-09-26 22:49] LABS: UA COLLECTION TYPE FOLEY CATH
[2022-09-26 23:17] LABS: BACTERIA,URINE NONE SEEN /HPF (Neg); MUCUS STRANDS NONE SEEN /LPF (Neg); SQUAMOUS EPITHELIAL CELL,UR MODERATE /LPF (FEW); WBC,URINE 0-4 /HPF (0-4)
[2022-09-27] VITALS (30 sets, daily range): BP systolic 66–133; BP diastolic 57–87
[2022-09-27] MEDS: piperacillin/tazo 3.375gm/50ml 50 ML IV SCH ×3 (00:08→16:07)
[2022-09-27] MEDS: normal saline 1000ml 1,000 ML IV SCH (01:16)
[2022-09-27] MEDS: mineral oil/petrolatum ophthal oint EACHEYE SCH ×4 (01:17→20:31)
[2022-09-27] MEDS: insulin regular, human U-100 3ml vial - multi-dose SQ SCH ×4 (01:20→20:44)
[2022-09-27 01:53] LABS: BASOPHILS % (AUTO) 0.1 % (0-1); EOSINOPHILS % (AUTO) 0 % (0-6); HEMATOCRIT 36.1 % (35.0-45.0); HEMOGLOBIN 11.6 g/dl (12.0-16.0); LYMPHOCYTES # (AUTO) 0.7 X10'3 (1.1-4.8); LYMPHOCYTES % (AUTO) 5.8 % (21-51); MEAN CORPUSCULAR HEMOGLOBIN 30.7 PG (27.0-31.0); MEAN CORPUSCULAR HGB CONC 32.2 g/dL (33.0-36.5); MEAN CORPUSCULAR VOLUME 95.3 FL (78-98); MEAN PLATELET VOLUME 7.6 FL (7.4-10.4); MONOCYTES # (AUTO) 0.5 X10'3 (0-0.9); MONOCYTES % (AUTO) 3.9 % (2-12); NEUTROPHILS # (AUTO) 11.2 X10'3 (1.8-7.7); NEUTROPHILS % (AUTO) 90.2 % (42-75); PLATELET COUNT 179 X10'3 (140-440); RED BLOOD COUNT 3.79 X10'6 (4.20-5.60); RED CELL DISTRIBUTION WIDTH 16.6 % (11.5-14.5); WHITE BLOOD COUNT 12.4 X10'3 (4.5-11.0)
[2022-09-27 01:55] LABS: ALBUMIN 2.1 G/DL (3.4-5.0); ANION GAP 9 (8-16); BLOOD UREA NITROGEN 14 MG/DL (7-18); BUN/CREATININE RATIO 24.6 (6.6-38.0); CALCIUM 8.8 MG/DL (8.5-10.1); CHLORIDE 104 MMOL/L (99-107); CREATININE 0.57 MG/DL (0.40-0.90); GLUCOSE 229 MG/DL (70-104); MAGNESIUM 1.9 MG/DL (1.5-2.4); PHOSPHORUS 2.5 MG/DL (2.3-4.5); POTASSIUM 3.9 MMOL/L (3.5-5.1); SODIUM 139 MMOL/L (135-145); TOTAL CARBON DIOXIDE 26.4 MMOL/L (24-32); eGFR > 90 ML/MIN
[2022-09-27] MEDS: ipratropium/albuterol 3ml nebule NEB PRN ×3 (02:50→11:07)
[2022-09-27] MEDS: propofol 1000mg/100ml bottle 100 ML IV SCH ×2 (03:06→11:37)
[2022-09-27 03:23] LABS: ABG BASE EXCESS 0.6 mmol/L (-2.0-2.0); ABG HCO3 26.1 mmol/L (22.0-26.0); ABG OXYGEN SATURATION 91.4 % (94-97); ABG PCO2 (T) 45.9 mmHg (32.0-45.0); ABG PO2 (T) 61.3 mmHg (75.0-100.0); FCOHb 0.5 % (0.0-3.9); FMetHb 0.2 % (0.0-1.5); FO2Hb 90.8 % (94-97); PATIENT TEMPERATURE 37.3; PEEP 5 cm H2O; RESPIRATORY RATE 24 b/min; TIDAL VOLUME 350 mL; TOTAL HEMOGLOBIN 12.8 G/dl (12.0-16.0)
--- NOTE | 2022-09-27 06:16 | NUR ---
Problems reprioritized. Patient report given, questions answered & plan of care reviewed with Xin STAUFFER.
[2022-09-27] MEDS ORDERED: acetaminophen 325mg tablet OGT PRN (07:32)
[2022-09-27] MEDS ORDERED: DEXTROSE 15 GM of carb/4 tabs (each vial/BOTTLE has 4 tablets) OGT PRN (07:32)
[2022-09-27] MEDS ORDERED: POTASSIUM BICARB 20meq eff tab 20 MEQ TABLET.EFF OGT PRN (07:34)
[2022-09-27] MEDS: K and/or MAG REPLACEMENT MC SCH (08:00)
[2022-09-27] MEDS: magnesium hydroxide 30ml (MOM) UD suspension OGT PRN (09:14)
[2022-09-27] MEDS: methylPREDNISolone sod succ 125mg/2ml vial IV SCH ×3 (09:14→20:31)
[2022-09-27] MEDS: famotidine/PF 10 mg/ml inj IV SCH ×2 (09:15→20:31)
[2022-09-27] MEDS: enoxaparin 40mg/0.4ml syringe SUBCUT SCH (09:16)
[2022-09-27] MEDS ORDERED: FENTANYL-0.9 % NACL/PF 250 ML IV PRN (09:45)
[2022-09-27] MEDS: vancomycin/NS 1 GM ADD-VANTAGE 250 ML X 1 DOSE IV SCH ×2 (11:37→22:26)
[2022-09-27] MEDS: fentaNYL 50mcg/ml PF inj. 2,500 MCG in normal saline 250ml IV soln 200 ML IV PRN (11:38)
[2022-09-27] MEDS: acetaminophen 325mg tablet OGT PRN ×2 (12:00→22:26)
[2022-09-27] MEDS ORDERED: HYDR-3973 PO (12:35)
[2022-09-27] MEDS ORDERED: TIOT4MIS2 INH (12:50)
[2022-09-27] MEDS ORDERED: ALBU18HF2 IH (12:50)
[2022-09-27] MEDS ORDERED: BUDE10.2 INH (12:54)
[2022-09-27] MEDS ORDERED: LIRA0.6P2 SUBCUT (12:54)
[2022-09-27] MEDS ORDERED: BUDE10.7 IH (12:54)
[2022-09-27] MEDS ORDERED: HUM100IN SQ (12:56)
[2022-09-27] MEDS ORDERED: NITR0.4T48 SL (12:56)
[2022-09-27] MEDS: NORepinephrine 8mg/ 250ml NS 250 ML IV SCH (13:00)
--- NOTE | 2022-09-27 16:26 | NUR ---
0700- pt wakes easily, very anxious, follows commands, HR up to the 150'2 with stimulation. decreased sedation. attempting to titrate down levo 1000- Dr Canales rounds, up fentanyl to 200, not a candidate for extubation today, increase solumedrol dose to 60 q 6, albuterol tx q 4 ATC, d/c IVF. Echo completed, no official report, tech stated EF of 70 %
[2022-09-27] MEDS: ipratropium/albuterol 3ml nebule NEB SCH ×3 (16:52→23:18)
--- NOTE | 2022-09-27 18:05 | NUR ---
Problems reprioritized. Patient report given, questions answered & plan of care reviewed with Xin STAUFFER.
[2022-09-27] MEDS: sennosides/docusate sodium tablet OGT SCH (20:31)
[2022-09-27] MEDS: insulin glargine (Lantus) pen - multi-dose SQ SCH (20:45)
[2022-09-27] MEDS ORDERED: VANCOMYCIN LEVEL IV ONE (22:30)
[2022-09-28] VITALS (32 sets, daily range): BP systolic 83–129; BP diastolic 52–83
[2022-09-28] MEDS: fentaNYL 50mcg/ml PF inj. 2,500 MCG in normal saline 250ml IV soln 200 ML IV PRN ×3 (00:10→23:13)
[2022-09-28] MEDS: piperacillin/tazo 3.375gm/50ml 50 ML IV SCH ×3 (00:10→16:33)
[2022-09-28] MEDS: methylPREDNISolone sod succ 125mg/2ml vial IV SCH ×4 (02:15→20:04)
[2022-09-28] MEDS: insulin regular, human U-100 3ml vial - multi-dose SQ SCH ×4 (02:16→20:08)
[2022-09-28] MEDS: mineral oil/petrolatum ophthal oint EACHEYE SCH ×4 (02:18→20:06)
[2022-09-28 03:07] LABS: ALBUMIN 1.8 G/DL (3.4-5.0); ANION GAP 10 (8-16); BASOPHILS % (AUTO) 0.1 % (0-1); BLOOD UREA NITROGEN 16 MG/DL (7-18); BUN/CREATININE RATIO 28.6 (6.6-38.0); CALCIUM 8.9 MG/DL (8.5-10.1); CHLORIDE 105 MMOL/L (99-107); CREATININE 0.56 MG/DL (0.40-0.90); EOSINOPHILS % (AUTO) 0 % (0-6); GLUCOSE 245 MG/DL (70-104); HEMATOCRIT 32.6 % (35.0-45.0); HEMOGLOBIN 10.7 g/dl (12.0-16.0); LYMPHOCYTES # (AUTO) 0.4 X10'3 (1.1-4.8); LYMPHOCYTES % (AUTO) 4.2 % (21-51); MAGNESIUM 2.3 MG/DL (1.5-2.4); MEAN CORPUSCULAR HEMOGLOBIN 31.1 PG (27.0-31.0); MEAN CORPUSCULAR HGB CONC 32.7 g/dL (33.0-36.5); MEAN CORPUSCULAR VOLUME 95.3 FL (78-98); MEAN PLATELET VOLUME 7.5 FL (7.4-10.4); MONOCYTES # (AUTO) 0.4 X10'3 (0-0.9); MONOCYTES % (AUTO) 3.7 % (2-12); NEUTROPHILS # (AUTO) 9.3 X10'3 (1.8-7.7); PHOSPHORUS 2.5 MG/DL (2.3-4.5); PLATELET COUNT 214 X10'3 (140-440); POTASSIUM 3.9 MMOL/L (3.5-5.1); PREALBUMIN 7.1 MG/DL (19-36); RED BLOOD COUNT 3.42 X10'6 (4.20-5.60); RED CELL DISTRIBUTION WIDTH 16.4 % (11.5-14.5); SODIUM 144 MMOL/L (135-145); TOTAL CARBON DIOXIDE 28.8 MMOL/L (24-32); WHITE BLOOD COUNT 10.1 X10'3 (4.5-11.0); eGFR > 90 ML/MIN
[2022-09-28] MEDS: ipratropium/albuterol 3ml nebule NEB SCH ×6 (03:13→23:18)
[2022-09-28 03:54] LABS: ABG BASE EXCESS 3.6 mmol/L (-2.0-2.0); ABG HCO3 28.9 mmol/L (22.0-26.0); ABG OXYGEN SATURATION 95.5 % (94-97); ABG PCO2 (T) 46.1 mmHg (32.0-45.0); ABG PO2 (T) 73.8 mmHg (75.0-100.0); ALLEN'S TEST Modified; FCOHb 0.3 % (0.0-3.9); FMetHb 0.1 % (0.0-1.5); FO2Hb 95.1 % (94-97); PATIENT TEMPERATURE 36.7; PEEP 5 cm H2O; RESPIRATORY RATE 24 b/min; TIDAL VOLUME 350 mL
[2022-09-28] MEDS: propofol 1000mg/100ml bottle 100 ML IV SCH ×2 (04:04→14:43)
[2022-09-28] MEDS: normal saline 1000ml 1,000 ML IV SCH (06:14)
--- NOTE | 2022-09-28 06:14 | NUR ---
Problems reprioritized. Patient report given, questions answered & plan of care reviewed with Xin STAUFFER.
[2022-09-28] MEDS: K and/or MAG REPLACEMENT MC SCH (08:00)
[2022-09-28] MEDS: enoxaparin 40mg/0.4ml syringe SUBCUT SCH (08:12)
[2022-09-28] MEDS: famotidine/PF 10 mg/ml inj IV SCH ×2 (08:13→20:04)
[2022-09-28] MEDS: polyethylene glycol 3350 17gm powd pack OGT PRN (08:13)
[2022-09-28] MEDS: NORepinephrine 8mg/ 250ml NS 250 ML IV SCH (11:49)
[2022-09-28] MEDS ORDERED: ringers solution, lacted 1,000 ML IV ONE (12:50)
[2022-09-28] MEDS: VANCOmycin 1250MG/NS 250ml Bag 250 ML IV SCH ×2 (12:52→22:08)
[2022-09-28] MEDS ORDERED: metoprolol tartrate 1mg/ml inj IV STA (13:02)
[2022-09-28] MEDS: gabapentin 400mg capsule PO SCH ×2 (13:11→20:04)
[2022-09-28] MEDS: cyclobenzaprine 10mg tablet PO SCH ×2 (13:12→20:04)
[2022-09-28] MEDS ORDERED: metoprolol tartrate 1mg/ml inj IV ONE (14:25)
--- NOTE | 2022-09-28 14:33 | NUR ---
0700- Levo off, patient wakes, anxious with any interaction/ care provided, nods appropriately. 1000- critical care rounds- no new orders 1242- Pt in SVT highest rate noted 190, SBP as low as 82, Dr Olsen notified, 1 lt LR. 1350- Liter infused, HR 140-160, SBP > 100, push 2.5 mg of metoprolol. 1415- Notified MD, repeat 2.5 mg metoprolol when SBP >100 and still in SVT. Son aware of changes in patient HR, he was at bedside to visit.
--- NOTE | 2022-09-28 14:59 | NUR ---
1500- 12 lead EKG revealed rapid afib, confirmed by Dr Olsen, Amiodarone gtt set ordered.
[2022-09-28] MEDS ORDERED: albuterol 2.5 MG/3 ML nebule NEB SCH (15:00)
[2022-09-28] MEDS ORDERED: amiodarone 150mg/dext, iso-os 100 ML IV ONE (15:00)
[2022-09-28] MEDS: amiodarone/D5 360MG/200ML BAG 200 ML IV SCH ×2 (15:17→21:18)
[2022-09-28] MEDS: metoprolol tartrate 25mg tablet PO SCH (16:33)
--- NOTE | 2022-09-28 18:16 | NUR ---
Patient in room CICU 2007. I have received report from Xin STAUFFER and had the opportunity to ask questions and assume patient care.
[2022-09-28] MEDS: budesonide 0.5mg/2ml UD nebule IH SCH (19:48)
[2022-09-28] MEDS: topiramate 25mg tablet PO SCH (20:04)
[2022-09-28] MEDS: primidone 50mg tablet PO SCH (20:04)
[2022-09-28] MEDS: sennosides/docusate sodium tablet OGT SCH (20:05)
[2022-09-28] MEDS: acetaminophen 325mg tablet OGT PRN (20:05)
[2022-09-28] MEDS: insulin glargine (Lantus) pen - multi-dose SQ SCH (20:09)
[2022-09-28] MEDS: clotrimazole topical cream 15gm tube TP SCH (21:02)
[2022-09-29] VITALS (35 sets, daily range): BP systolic 86–118; BP diastolic 56–85
[2022-09-29] MEDS: piperacillin/tazo 3.375gm/50ml 50 ML IV SCH ×4 (00:05→23:57)
[2022-09-29] MEDS: fentaNYL 50mcg/ml PF inj. 2,500 MCG in normal saline 250ml IV soln 200 ML IV PRN ×2 (00:06→11:16)
[2022-09-29] MEDS: insulin regular, human U-100 3ml vial - multi-dose SQ SCH ×4 (02:08→21:10)
[2022-09-29] MEDS: methylPREDNISolone sod succ 125mg/2ml vial IV SCH ×4 (02:09→20:18)
[2022-09-29] MEDS: mineral oil/petrolatum ophthal oint EACHEYE SCH ×4 (02:10→20:08)
[2022-09-29 02:32] LABS: BASOPHILS % (AUTO) 0.1 % (0-1); EOSINOPHILS % (AUTO) 0 % (0-6); HEMATOCRIT 30.3 % (35.0-45.0); HEMOGLOBIN 9.9 g/dl (12.0-16.0); LYMPHOCYTES # (AUTO) 0.5 X10'3 (1.1-4.8); LYMPHOCYTES % (AUTO) 9.7 % (21-51); MEAN CORPUSCULAR HEMOGLOBIN 31.3 PG (27.0-31.0); MEAN CORPUSCULAR HGB CONC 32.6 g/dL (33.0-36.5); MEAN CORPUSCULAR VOLUME 95.9 FL (78-98); MEAN PLATELET VOLUME 7.5 FL (7.4-10.4); MONOCYTES # (AUTO) 0.3 X10'3 (0-0.9); MONOCYTES % (AUTO) 5.7 % (2-12); NEUTROPHILS # (AUTO) 4.6 X10'3 (1.8-7.7); NEUTROPHILS % (AUTO) 84.5 % (42-75); PLATELET COUNT 209 X10'3 (140-440); RED BLOOD COUNT 3.16 X10'6 (4.20-5.60); RED CELL DISTRIBUTION WIDTH 16.4 % (11.5-14.5); WHITE BLOOD COUNT 5.4 X10'3 (4.5-11.0)
[2022-09-29 02:46] LABS: ALBUMIN 1.7 G/DL (3.4-5.0); ANION GAP 5 (8-16); BLOOD UREA NITROGEN 21 MG/DL (7-18); BUN/CREATININE RATIO 40.4 (6.6-38.0); CALCIUM 8.9 MG/DL (8.5-10.1); CHLORIDE 104 MMOL/L (99-107); CREATININE 0.52 MG/DL (0.40-0.90); GLUCOSE 232 MG/DL (70-104); MAGNESIUM 2.2 MG/DL (1.5-2.4); SODIUM 141 MMOL/L (135-145); TOTAL CARBON DIOXIDE 32.4 MMOL/L (24-32); eGFR > 90 ML/MIN
[2022-09-29] MEDS: ipratropium/albuterol 3ml nebule NEB SCH ×6 (03:11→22:40)
[2022-09-29 04:16] LABS: ABG BASE EXCESS 5.5 mmol/L (-2.0-2.0); ABG HCO3 30.6 mmol/L (22.0-26.0); ABG PCO2 (T) 47.4 mmHg (32.0-45.0); FCOHb 0.3 % (0.0-3.9); FMetHb 0.2 % (0.0-1.5); FO2Hb 95.5 % (94-97); PATIENT TEMPERATURE 37.2; PEEP 5 cm H2O; RESPIRATORY RATE 24 b/min; TIDAL VOLUME 350 mL; TOTAL HEMOGLOBIN 11.2 G/dl (12.0-16.0)
[2022-09-29] MEDS: propofol 1000mg/100ml bottle 100 ML IV SCH (05:17)
--- NOTE | 2022-09-29 06:00 | NUR ---
Patient in room CICU 2007. I have received report from Effie STAUFFER and had the opportunity to ask questions and assume patient care.
--- NOTE | 2022-09-29 06:19 | NUR ---
Problems reprioritized. Patient report given, questions answered & plan of care reviewed with Herlinda and John RNs.
[2022-09-29] MEDS: amiodarone/D5 360MG/200ML BAG 200 ML IV SCH ×4 (06:56→20:22)
[2022-09-29] MEDS: metoprolol tartrate 25mg tablet PO SCH ×2 (07:30→16:42)
[2022-09-29] MEDS: LIRAGLUTIDE 0.6 MG/0.1 ML PEN.INJCTR SQ SCH (07:39)
[2022-09-29] MEDS: aspirin 81mg, enteric-coated 1 TAB TABLET.DR PO SCH (07:39)
[2022-09-29] MEDS: ERTUGLIFLOZIN PIDOLATE 15 MG PO SCH (07:41)
[2022-09-29] MEDS: ROFLUMILAST 500 MCG PO SCH (07:42)
[2022-09-29] MEDS: enoxaparin 40mg/0.4ml syringe SUBCUT SCH (07:54)
[2022-09-29] MEDS: duloxetine 30mg CAPSULE.DR PO SCH ×3 (07:56→20:16)
[2022-09-29] MEDS: topiramate 25mg tablet PO SCH ×2 (07:57→20:17)
[2022-09-29] MEDS: cyclobenzaprine 10mg tablet PO SCH ×3 (07:57→20:16)
[2022-09-29] MEDS: clopidogrel 75mg tablet PO SCH (07:57)
[2022-09-29] MEDS: gabapentin 400mg capsule PO SCH ×3 (07:57→20:16)
[2022-09-29] MEDS: allopurinol 100mg tablet PO SCH (07:58)
[2022-09-29] MEDS: famotidine/PF 10 mg/ml inj IV SCH ×2 (07:58→20:17)
[2022-09-29] MEDS: loratadine 10mg tablet PO SCH (07:58)
[2022-09-29] MEDS: clotrimazole topical cream 15gm tube TP SCH ×2 (08:00→20:19)
[2022-09-29] MEDS: budesonide 0.5mg/2ml UD nebule IH SCH ×2 (09:00→19:18)
--- NOTE | 2022-09-29 11:01 | NUR ---
Daughter Lilliam taking purse with 2 phones inside home, stating needs to pay patients bills. Confirmed that daughter is on list, informed charge nurse as well.
--- NOTE | 2022-09-29 11:05 | NUR ---
Reassessment: Pt remains intubated and tolerating TF at goal rate with GRV WNL. Propofol visualized at bedside to be running at 4.74 mL/hr providing 125 kcal/day. Current Propofol and TF rate combined is providing an additional 60 kcal/day (103% of patient's maximum estimated energy needs). MD nicholas NEELY adjusting TF goal rate based on Propofol rate however states Propofol likely to be tapered at this time. Recommend continuing with current TF recs and RD will adjust as appropriate/needed. LBM 09/25, receiving routine and PRN bowel care. Noted MST screen was completed with reports of wt loss and decreased appetite. Unable to interview pt d/t intubation with sedation. Current scaled wt is higher than documented wt hx in EMR from August-September of this year. Pt visualized at bedside with no fat or muscle wasting appreciated. Estimated nutrient needs are being met with TF and pt with minimal edema at this time. Pt currently lacks a minimum of two criteria for malnutrition. Will continue to follow closely. Recommendations: 1. Continuous TF via OGT using Vital HP at 65 ml/hr; to provide 1560 ml volume/day, 1560 kcal, 1304 ml water, and 136 g protein 2. Monitor Propofol rate and adjust TF recs as appropriate; TF rate will need to be adjusted if Propofol rate increases from 4.74 mL/hr 3. Additional 100 mL water flush Q4H; monitor serum Na 4. PALB q Wednesday/ 5. Daily scaled wts 6. Routine bowel care, utilize PRN bowel care given no BM x 4 days 7. Upon extubation advance diet as medically indicated to heart healthy with BSS with ST Addendum: 09/29/22 at [address] Amended: Links added.
[2022-09-29] MEDS: dexmedetomidin/NS 400mcg/100ml 100 ML IV SCH ×2 (11:17→20:19)
[2022-09-29] MEDS: VANCOmycin 1250MG/NS 250ml Bag 250 ML IV SCH (11:20)
--- NOTE | 2022-09-29 18:18 | NUR ---
Problems reprioritized. Patient report given, questions answered & plan of care reviewed with Maryjane STAUFFER.
[2022-09-29] MEDS: sennosides/docusate sodium tablet OGT SCH (20:17)
[2022-09-29] MEDS: primidone 50mg tablet PO SCH (20:17)
[2022-09-29] MEDS: insulin glargine (Lantus) pen - multi-dose SQ SCH (21:12)
[2022-09-29] MEDS ORDERED: VANCOMYCIN LEVEL IV ONE (22:30)
[2022-09-30] VITALS (35 sets, daily range): BP systolic 87–131; BP diastolic 52–91
[2022-09-30] MEDS: mineral oil/petrolatum ophthal oint EACHEYE SCH ×4 (02:03→20:00)
[2022-09-30] MEDS: fentaNYL 50mcg/ml PF inj. 2,500 MCG in normal saline 250ml IV soln 200 ML IV PRN (02:05)
[2022-09-30] MEDS: insulin regular, human U-100 3ml vial - multi-dose SQ SCH ×4 (02:07→21:17)
[2022-09-30] MEDS: methylPREDNISolone sod succ 125mg/2ml vial IV SCH ×4 (02:10→21:00)
[2022-09-30 02:44] LABS: BASOPHILS % (AUTO) 0.1 % (0-1); EOSINOPHILS % (AUTO) 0 % (0-6); HEMATOCRIT 31.5 % (35.0-45.0); HEMOGLOBIN 10.1 g/dl (12.0-16.0); LYMPHOCYTES # (AUTO) 0.5 X10'3 (1.1-4.8); LYMPHOCYTES % (AUTO) 9.6 % (21-51); MEAN CORPUSCULAR HEMOGLOBIN 30.5 PG (27.0-31.0); MEAN CORPUSCULAR HGB CONC 31.9 g/dL (33.0-36.5); MEAN CORPUSCULAR VOLUME 95.5 FL (78-98); MEAN PLATELET VOLUME 7.8 FL (7.4-10.4); MONOCYTES # (AUTO) 0.5 X10'3 (0-0.9); MONOCYTES % (AUTO) 9.4 % (2-12); NEUTROPHILS # (AUTO) 4.1 X10'3 (1.8-7.7); NEUTROPHILS % (AUTO) 80.9 % (42-75); PLATELET COUNT 245 X10'3 (140-440); RED CELL DISTRIBUTION WIDTH 16.6 % (11.5-14.5)
[2022-09-30] MEDS: ipratropium/albuterol 3ml nebule NEB SCH ×6 (03:08→23:39)
[2022-09-30 03:09] LABS: ALBUMIN 1.8 G/DL (3.4-5.0); ANION GAP 8 (8-16); BLOOD UREA NITROGEN 22 MG/DL (7-18); BUN/CREATININE RATIO 36.7 (6.6-38.0); CHLORIDE 103 MMOL/L (99-107); GLUCOSE 200 MG/DL (70-104); MAGNESIUM 2.3 MG/DL (1.5-2.4); SODIUM 143 MMOL/L (135-145); TOTAL CARBON DIOXIDE 31.7 MMOL/L (24-32); eGFR > 90 ML/MIN
[2022-09-30 03:38] LABS: ANISOCYTOSIS 1+; GIANT PLATELET FEW; LARGE PLATELETS FEW; PLATELET ESTIMATE NORMAL; STOMATOCYTES FEW; TOTAL CELLS COUNTED 100
[2022-09-30 03:51] LABS: ABG BASE EXCESS 4.8 mmol/L (-2.0-2.0); ABG OXYGEN SATURATION 95.2 % (94-97); ABG PCO2 (T) 47.8 mmHg (32.0-45.0); FCOHb 0.3 % (0.0-3.9); FMetHb 0.2 % (0.0-1.5); FO2Hb 94.7 % (94-97); PATIENT TEMPERATURE 37.3; PEEP 5 cm H2O; TOTAL HEMOGLOBIN 11.2 G/dl (12.0-16.0)
[2022-09-30] MEDS: dexmedetomidin/NS 400mcg/100ml 100 ML IV SCH ×4 (05:11→22:55)
[2022-09-30] MEDS: amiodarone/D5 360MG/200ML BAG 200 ML IV SCH ×4 (06:31→20:06)
[2022-09-30] MEDS: budesonide 0.5mg/2ml UD nebule IH SCH ×2 (07:12→19:15)
[2022-09-30] MEDS: metoprolol tartrate 25mg tablet PO SCH ×2 (07:30→16:21)
[2022-09-30] MEDS: normal saline 1000ml 1,000 ML IV SCH (07:32)
[2022-09-30] MEDS: gabapentin 400mg capsule PO SCH ×3 (07:53→21:03)
[2022-09-30] MEDS: enoxaparin 40mg/0.4ml syringe SUBCUT SCH (07:53)
[2022-09-30] MEDS: famotidine/PF 10 mg/ml inj IV SCH ×2 (07:54→20:59)
[2022-09-30] MEDS: aspirin 81mg, enteric-coated 1 TAB TABLET.DR PO SCH (07:54)
[2022-09-30] MEDS: loratadine 10mg tablet PO SCH (07:54)
[2022-09-30] MEDS: duloxetine 30mg CAPSULE.DR PO SCH ×2 (07:54→21:00)
[2022-09-30] MEDS: allopurinol 100mg tablet PO SCH (07:54)
[2022-09-30] MEDS: clopidogrel 75mg tablet PO SCH (07:57)
[2022-09-30] MEDS: cyclobenzaprine 10mg tablet PO SCH ×3 (07:57→21:07)
[2022-09-30] MEDS: piperacillin/tazo 3.375gm/50ml 50 ML IV SCH ×2 (07:58→16:19)
[2022-09-30] MEDS: ROFLUMILAST 500 MCG PO SCH (07:59)
[2022-09-30] MEDS: ERTUGLIFLOZIN PIDOLATE 15 MG PO SCH (07:59)
[2022-09-30] MEDS: LIRAGLUTIDE 0.6 MG/0.1 ML PEN.INJCTR SQ SCH (08:00)
[2022-09-30] MEDS: clotrimazole topical cream 15gm tube TP SCH ×2 (08:01→20:00)
[2022-09-30] MEDS: topiramate 25mg tablet PO SCH ×2 (08:07→21:01)
[2022-09-30] MEDS ORDERED: bisacodyl 10mg suppository rectal RC PRN (11:00)
[2022-09-30] MEDS ORDERED: bisacodyl 10mg suppository rectal RC ONE (11:00)
[2022-09-30] MEDS: furosemide 20 MG/2 ML vial IV SCH ×2 (11:53→20:59)
--- NOTE | 2022-09-30 17:47 | NUR ---
Neuro:Lightly sedated. Able to follow commands. intermittently agitated. Remains on Dex and Fent Resp: On 30/03 most of shift. continues to have low RR and large volumes Cardiac: NS/ST. Metoprolol held for low BP. Remains on amino gtt. GI/:TF set to goal. FWF q4hr. Lasix given x1 with great UOP. Suppository given. No BM this shift. Skin:Some bruising on UE. LE in boots protection. Turn q2hr.
[2022-09-30] MEDS: primidone 50mg tablet PO SCH (21:02)
[2022-09-30] MEDS: sennosides/docusate sodium tablet OGT SCH (21:02)
[2022-09-30] MEDS: insulin glargine (Lantus) pen - multi-dose SQ SCH (21:19)
[2022-10-01] VITALS (31 sets, daily range): BP systolic 93–136; BP diastolic 46–81
[2022-10-01] MEDS: piperacillin/tazo 3.375gm/50ml 50 ML IV SCH ×3 (00:10→16:22)
[2022-10-01] MEDS: mineral oil/petrolatum ophthal oint EACHEYE SCH ×4 (01:45→20:00)
[2022-10-01] MEDS: dexmedetomidin/NS 400mcg/100ml 100 ML IV SCH ×7 (01:45→23:06)
[2022-10-01] MEDS: methylPREDNISolone sod succ 125mg/2ml vial IV SCH ×4 (01:51→19:42)
[2022-10-01] MEDS: insulin regular, human U-100 3ml vial - multi-dose SQ SCH ×2 (02:29→08:26)
[2022-10-01 02:38] LABS: BASOPHILS % (AUTO) 0.1 % (0-1); EOSINOPHILS % (AUTO) 0 % (0-6); HEMATOCRIT 33.3 % (35.0-45.0); HEMOGLOBIN 10.5 g/dl (12.0-16.0); LYMPHOCYTES # (AUTO) 0.6 X10'3 (1.1-4.8); LYMPHOCYTES % (AUTO) 7.7 % (21-51); MEAN CORPUSCULAR HEMOGLOBIN 30.1 PG (27.0-31.0); MEAN CORPUSCULAR HGB CONC 31.5 g/dL (33.0-36.5); MEAN CORPUSCULAR VOLUME 95.8 FL (78-98); MEAN PLATELET VOLUME 7.9 FL (7.4-10.4); MONOCYTES # (AUTO) 0.8 X10'3 (0-0.9); MONOCYTES % (AUTO) 9.6 % (2-12); NEUTROPHILS # (AUTO) 6.5 X10'3 (1.8-7.7); NEUTROPHILS % (AUTO) 82.6 % (42-75); PLATELET COUNT 295 X10'3 (140-440); RED BLOOD COUNT 3.47 X10'6 (4.20-5.60); RED CELL DISTRIBUTION WIDTH 16.6 % (11.5-14.5); WHITE BLOOD COUNT 7.9 X10'3 (4.5-11.0)
[2022-10-01 02:53] LABS: ALBUMIN 1.9 G/DL (3.4-5.0); ANION GAP 9 (8-16); BLOOD UREA NITROGEN 30 MG/DL (7-18); BUN/CREATININE RATIO 44.8 (6.6-38.0); CALCIUM 8.7 MG/DL (8.5-10.1); CHLORIDE 100 MMOL/L (99-107); CREATININE 0.67 MG/DL (0.40-0.90); GLUCOSE 260 MG/DL (70-104); MAGNESIUM 2.2 MG/DL (1.5-2.4); PHOSPHORUS 3.5 MG/DL (2.3-4.5); SODIUM 142 MMOL/L (135-145); TOTAL CARBON DIOXIDE 33.2 MMOL/L (24-32); eGFR 88 ML/MIN
[2022-10-01] MEDS: ipratropium/albuterol 3ml nebule NEB SCH ×6 (03:07→23:12)
[2022-10-01 03:20] LABS: ABG BASE EXCESS 7.5 mmol/L (-2.0-2.0); ABG HCO3 32.4 mmol/L (22.0-26.0); ABG OXYGEN SATURATION 93.7 % (94-97); ABG PCO2 (T) 48.2 mmHg (32.0-45.0); ABG PO2 (T) 72.4 mmHg (75.0-100.0); ALLEN'S TEST POSITIVE; FCOHb 0.3 % (0.0-3.9); FMetHb 0.2 % (0.0-1.5); FO2Hb 93.2 % (94-97); PATIENT TEMPERATURE 37.7; PEEP 5 cm H2O; RESPIRATORY RATE 24 b/min; TIDAL VOLUME 350 mL; TOTAL HEMOGLOBIN 11.9 G/dl (12.0-16.0)
[2022-10-01] MEDS: amiodarone/D5 360MG/200ML BAG 200 ML IV SCH ×2 (06:31→08:14)
[2022-10-01] MEDS: propofol 1000mg/100ml bottle 100 ML IV SCH (06:32)
[2022-10-01] MEDS: LIRAGLUTIDE 0.6 MG/0.1 ML PEN.INJCTR SQ SCH (06:33)
[2022-10-01] MEDS: budesonide 0.5mg/2ml UD nebule IH SCH ×2 (07:16→20:07)
[2022-10-01] MEDS: metoprolol tartrate 25mg tablet PO SCH ×2 (07:30→17:30)
[2022-10-01] MEDS: ROFLUMILAST 500 MCG PO SCH (08:00)
[2022-10-01] MEDS: ERTUGLIFLOZIN PIDOLATE 15 MG PO SCH (08:00)
[2022-10-01] MEDS: famotidine/PF 10 mg/ml inj IV SCH ×2 (08:07→19:42)
[2022-10-01] MEDS: enoxaparin 40mg/0.4ml syringe SUBCUT SCH (08:07)
[2022-10-01] MEDS: furosemide 20 MG/2 ML vial IV SCH ×2 (08:08→19:42)
[2022-10-01] MEDS: gabapentin 400mg capsule PO SCH ×3 (08:08→14:25)
[2022-10-01] MEDS: cyclobenzaprine 10mg tablet PO SCH ×3 (08:09→21:00)
[2022-10-01] MEDS: clopidogrel 75mg tablet PO SCH (08:09)
[2022-10-01] MEDS: loratadine 10mg tablet PO SCH (08:09)
[2022-10-01] MEDS: aspirin 81mg, enteric-coated 1 TAB TABLET.DR PO SCH (08:09)
[2022-10-01] MEDS: duloxetine 30mg CAPSULE.DR PO SCH ×2 (08:10→21:00)
[2022-10-01] MEDS: clotrimazole topical cream 15gm tube TP SCH ×2 (08:11→22:17)
[2022-10-01] MEDS: topiramate 25mg tablet PO SCH ×2 (08:13→20:00)
[2022-10-01] MEDS: allopurinol 100mg tablet PO SCH (08:14)
[2022-10-01] MEDS: albuterol 2.5 MG/3 ML nebule NEB PRN (10:47)
[2022-10-01] MEDS ORDERED: amiodarone 200mg tablet PO SCH (11:08)
[2022-10-01] MEDS ORDERED: furosemide 40mg/4ml inj IV ONE (11:15)
[2022-10-01] MEDS: amiodarone 200mg tablet OGT SCH ×2 (12:05→22:01)
[2022-10-01] MEDS: acetaminophen 325mg tablet OGT PRN (12:17)
[2022-10-01] MEDS ORDERED: dextrose 50%-water 50ml dispensing syringe IV PRN ×2 (14:20)
[2022-10-01] MEDS ORDERED: DEXTROSE 15 GM of carb/4 tabs (each vial/BOTTLE has 4 tablets) PO PRN ×2 (14:20)
[2022-10-01] MEDS ORDERED: glucagon, human recombinant 1mg kit SUBCUT PRN (14:20)
[2022-10-01] MEDS: insulin Lispro (HumaLOG) vial - multi-dose SQ SCH (14:33)
[2022-10-01 15:43] LABS: PREALBUMIN 23.6 MG/DL (19-36)
[2022-10-01 17:39] LABS: ABG BASE EXCESS 8.6 mmol/L (-2.0-2.0); ABG HCO3 32.8 mmol/L (22.0-26.0); ABG OXYGEN SATURATION 96.1 % (94-97); ABG PCO2 (T) 45.7 mmHg (32.0-45.0); ABG PO2 (T) 83.8 mmHg (75.0-100.0); ALLEN'S TEST POSITIVE; FCOHb 0.3 % (0.0-3.9); FLOW 5 L/min; FMetHb 0.2 % (0.0-1.5); FO2Hb 95.6 % (94-97); PATIENT TEMPERATURE 38.2; TOTAL HEMOGLOBIN 12.6 G/dl (12.0-16.0)
[2022-10-01] MEDS: sennosides/docusate sodium tablet OGT SCH (21:00)
[2022-10-01] MEDS: insulin glargine (Lantus) pen - multi-dose SQ SCH ×2 (21:00→22:16)
--- NOTE | 2022-10-01 22:00 | NUR ---
Pt. is mildly sedated drowsy on Precedex 1.4, opens eyes follows commands answers yes to being in the hospital confused as to purpose. Pt. has bilateral soft wrist restraints attempts to pull on gown and equipment when fully awake. Pt. is on 02 5L NC and mouth breathing. able to take ice chips swallow without coughing. Meds given crushed in thickened juice. C-line and peripheral Sl intact. Both arms with old purple ecchymosis. Rosales with large amt yellow clear urine on diuretic. bilateral SCD intact. Spoke with family member Clarice updated as needed.
[2022-10-01] MEDS: primidone 50mg tablet PO SCH (22:02)
[2022-10-02] VITALS (24 sets, daily range): BP systolic 99–149; BP diastolic 65–95
[2022-10-02] MEDS: methylPREDNISolone sod succ 125mg/2ml vial IV SCH ×3 (01:40→20:06)
[2022-10-02] MEDS: piperacillin/tazo 3.375gm/50ml 50 ML IV SCH ×4 (01:41→23:56)
[2022-10-02] MEDS: mineral oil/petrolatum ophthal oint EACHEYE SCH ×2 (01:46→08:00)
[2022-10-02] MEDS: dexmedetomidin/NS 400mcg/100ml 100 ML IV SCH ×2 (02:22→06:03)
[2022-10-02] MEDS: ipratropium/albuterol 3ml nebule NEB SCH ×6 (03:07→23:26)
[2022-10-02 03:21] LABS: BASOPHILS % (AUTO) 0.1 % (0-1); EOSINOPHILS % (AUTO) 0.2 % (0-6); HEMATOCRIT 35.5 % (35.0-45.0); HEMOGLOBIN 11.7 g/dl (12.0-16.0); LYMPHOCYTES # (AUTO) 0.9 X10'3 (1.1-4.8); LYMPHOCYTES % (AUTO) 11.2 % (21-51); MEAN CORPUSCULAR HEMOGLOBIN 31.3 PG (27.0-31.0); MEAN CORPUSCULAR VOLUME 94.8 FL (78-98); MEAN PLATELET VOLUME 7.6 FL (7.4-10.4); MONOCYTES # (AUTO) 0.7 X10'3 (0-0.9); MONOCYTES % (AUTO) 8.5 % (2-12); NEUTROPHILS # (AUTO) 6.5 X10'3 (1.8-7.7); PLATELET COUNT 320 X10'3 (140-440); RED BLOOD COUNT 3.74 X10'6 (4.20-5.60); RED CELL DISTRIBUTION WIDTH 16.2 % (11.5-14.5); WHITE BLOOD COUNT 8.1 X10'3 (4.5-11.0)
[2022-10-02 03:34] LABS: ALBUMIN 1.9 G/DL (3.4-5.0); ANION GAP 8 (8-16); BLOOD UREA NITROGEN 30 MG/DL (7-18); BUN/CREATININE RATIO 47.6 (6.6-38.0); CALCIUM 8.8 MG/DL (8.5-10.1); CHLORIDE 100 MMOL/L (99-107); CREATININE 0.63 MG/DL (0.40-0.90); GLUCOSE 200 MG/DL (70-104); MAGNESIUM 2.4 MG/DL (1.5-2.4); PHOSPHORUS 3.5 MG/DL (2.3-4.5); POTASSIUM 3.5 MMOL/L (3.5-5.1); SODIUM 141 MMOL/L (135-145); eGFR > 90 ML/MIN
[2022-10-02 04:41] LABS: NUCLEATED RED BLOOD CELLS 1 /100WBC (0-0); TOTAL CELLS COUNTED 100
[2022-10-02 04:42] LABS: ANISOCYTOSIS 1+; PLATELET ESTIMATE NORMAL; SMUDGE CELLS 1+
[2022-10-02 04:43] LABS: LARGE PLATELETS FEW; POLYCHROMASIA FEW; STOMATOCYTES FEW
--- NOTE | 2022-10-02 05:00 | NUR ---
Pt. has been on Precedex all night on02 5L NC.weaned off Precedex for po meds pt. became belligerent using profane language and pulling on devices. Bilateral soft restraints intact. Will slowly wean off Precedex and restraints if cooperative. Plan for SP therapy for swallow exam.
[2022-10-02] MEDS: budesonide 0.5mg/2ml UD nebule IH SCH ×2 (07:29→19:09)
[2022-10-02] MEDS: clotrimazole topical cream 15gm tube TP SCH ×2 (08:00→20:08)
[2022-10-02] MEDS: topiramate 25mg tablet PO SCH ×2 (08:00→20:07)
[2022-10-02] MEDS: ERTUGLIFLOZIN PIDOLATE 15 MG PO SCH (08:00)
[2022-10-02] MEDS: LIRAGLUTIDE 0.6 MG/0.1 ML PEN.INJCTR SQ SCH (08:00)
[2022-10-02] MEDS: enoxaparin 40mg/0.4ml syringe SUBCUT SCH (08:53)
[2022-10-02] MEDS: ROFLUMILAST 500 MCG PO SCH (08:54)
[2022-10-02] MEDS: duloxetine 30mg CAPSULE.DR PO SCH ×2 (08:54→20:07)
[2022-10-02] MEDS: amiodarone 200mg tablet OGT SCH ×2 (08:55→20:07)
[2022-10-02] MEDS: metoprolol tartrate 25mg tablet PO SCH ×2 (08:55→09:13)
[2022-10-02] MEDS: cyclobenzaprine 10mg tablet PO SCH ×3 (08:58→20:05)
[2022-10-02] MEDS: gabapentin 400mg capsule PO SCH ×2 (08:58→13:11)
[2022-10-02] MEDS: clopidogrel 75mg tablet OGT SCH (08:59)
[2022-10-02] MEDS: furosemide 20 MG/2 ML vial IV SCH ×2 (08:59→20:05)
[2022-10-02] MEDS: allopurinol 100mg tablet OGT SCH (08:59)
[2022-10-02] MEDS: aspirin 81mg tab.chew OGT SCH (09:00)
[2022-10-02] MEDS: loratadine 10mg tablet PO SCH (09:00)
[2022-10-02] MEDS: insulin Lispro (HumaLOG) vial - multi-dose SQ SCH ×3 (09:30→18:42)
--- NOTE | 2022-10-02 10:43 | NUR ---
Reassessment: Pt extubated 10/01, no longer receiving nutrition support. Per RN pt tolerated ice chips, sips, and applesauce however choked when chugging liquids. Recommend BSS with ST to assess need for texture modification, d/w multidisciplinary team at [facility]. LBM 09/25, receiving routine bowel care with PRN bowel care available, last given 09/30. Will continue to follow closely and monitor need for nutrition intervention pending diet advancement from NPO. Recommendations: 1. Advance to heart healthy diet as medically indicated pending BSS with ST 2. Monitor need for ONS/additional protein with diet advancement 3. Routine bowel care, utilize PRN bowel care given no BM x 7 days Addendum: 10/02/22 at [address] Amended: Links added.
[2022-10-02] MEDS ORDERED: metoprolol tartrate 1mg/ml inj IV ONE (14:35)
[2022-10-02] MEDS ORDERED: metoprolol tartrate 25mg tablet PO SCH (17:30)
--- NOTE | 2022-10-02 18:30 | NUR ---
Patient in room CICU 2007. I have received report from Casey STAUFFER and had the opportunity to ask questions and assume patient care.
[2022-10-02] MEDS: sennosides/docusate sodium tablet OGT SCH (20:07)
[2022-10-02] MEDS: primidone 50mg tablet PO SCH (20:07)
[2022-10-02] MEDS: insulin glargine (Lantus) pen - multi-dose SQ SCH (20:21)
[2022-10-02] MEDS ORDERED: LIDOcaine 2% 10ml TOPICAL JELLY (Urojet) TP ONE (23:45)
[2022-10-03] VITALS (14 sets, daily range): BP systolic 111–145; BP diastolic 67–97
--- NOTE | 2022-10-03 02:30 | NUR ---
pt heart rate between 130-160. Called MD , new orders received.
[2022-10-03] MEDS: metoprolol tartrate 1mg/ml inj IV PRN ×3 (02:51→14:49)
--- NOTE | 2022-10-03 03:04 | NUR ---
patient refusing to be turned.
[2022-10-03] MEDS: ipratropium/albuterol 3ml nebule NEB SCH ×6 (03:32→23:56)
--- NOTE | 2022-10-03 06:10 | NUR ---
Problems reprioritized. Patient report given, questions answered & plan of care reviewed with Herlinda STAUFFER.
[2022-10-03 06:36] LABS: BASOPHILS % (AUTO) 0.2 % (0-1); EOSINOPHILS % (AUTO) 0 % (0-6); HEMOGLOBIN 12.8 g/dl (12.0-16.0); LYMPHOCYTES # (AUTO) 1.3 X10'3 (1.1-4.8); LYMPHOCYTES % (AUTO) 11.8 % (21-51); MEAN CORPUSCULAR HGB CONC 32.9 g/dL (33.0-36.5); MEAN CORPUSCULAR VOLUME 94.3 FL (78-98); MEAN PLATELET VOLUME 7.6 FL (7.4-10.4); MONOCYTES # (AUTO) 0.9 X10'3 (0-0.9); MONOCYTES % (AUTO) 8.5 % (2-12); NEUTROPHILS # (AUTO) 8.5 X10'3 (1.8-7.7); NEUTROPHILS % (AUTO) 79.5 % (42-75); PLATELET COUNT 404 X10'3 (140-440); RED BLOOD COUNT 4.14 X10'6 (4.20-5.60); RED CELL DISTRIBUTION WIDTH 16.4 % (11.5-14.5); WHITE BLOOD COUNT 10.7 X10'3 (4.5-11.0)
[2022-10-03 06:45] LABS: ANION GAP 9 (8-16); BLOOD UREA NITROGEN 36 MG/DL (7-18); BUN/CREATININE RATIO 56.3 (6.6-38.0); CALCIUM 8.9 MG/DL (8.5-10.1); CHLORIDE 100 MMOL/L (99-107); CREATININE 0.64 MG/DL (0.40-0.90); GLUCOSE 121 MG/DL (70-104); MAGNESIUM 2.5 MG/DL (1.5-2.4); PHOSPHORUS 3.3 MG/DL (2.3-4.5); POTASSIUM 3.1 MMOL/L (3.5-5.1); SODIUM 141 MMOL/L (135-145); TOTAL CARBON DIOXIDE 31.8 MMOL/L (24-32); eGFR > 90 ML/MIN
--- NOTE | 2022-10-03 06:47 | NUR ---
Patient in room CICU 2007. I have received report from Yandy STAUFFER and had the opportunity to ask questions and assume patient care.
[2022-10-03 07:07] LABS: TOTAL CELLS COUNTED 100
[2022-10-03 07:08] LABS: ANISOCYTOSIS 1+; PLATELET ESTIMATE NORMAL; POLYCHROMASIA 1+
[2022-10-03] MEDS: ERTUGLIFLOZIN PIDOLATE 15 MG PO SCH (08:00)
[2022-10-03] MEDS: LIRAGLUTIDE 0.6 MG/0.1 ML PEN.INJCTR SQ SCH (08:00)
[2022-10-03] MEDS: piperacillin/tazo 3.375gm/50ml 50 ML IV SCH ×2 (08:18→16:03)
[2022-10-03] MEDS: aspirin 81mg tab.chew OGT SCH (08:19)
[2022-10-03] MEDS: enoxaparin 40mg/0.4ml syringe SUBCUT SCH (08:19)
[2022-10-03] MEDS: ROFLUMILAST 500 MCG PO SCH (08:19)
[2022-10-03] MEDS: methylPREDNISolone sod succ 125mg/2ml vial IV SCH ×2 (08:20→20:11)
[2022-10-03] MEDS: furosemide 20 MG/2 ML vial IV SCH (08:21)
[2022-10-03] MEDS: cyclobenzaprine 10mg tablet PO SCH ×4 (08:21→20:11)
[2022-10-03] MEDS: allopurinol 100mg tablet OGT SCH (08:21)
[2022-10-03] MEDS: amiodarone 200mg tablet OGT SCH ×2 (08:22→20:14)
[2022-10-03] MEDS: topiramate 25mg tablet PO SCH ×2 (08:22→20:14)
[2022-10-03] MEDS: loratadine 10mg tablet PO SCH (08:22)
[2022-10-03] MEDS: POTASSIUM BICARB 20meq eff tab 20 MEQ TABLET.EFF OGT PRN ×3 (08:22→20:29)
[2022-10-03] MEDS: clopidogrel 75mg tablet OGT SCH (08:22)
[2022-10-03] MEDS: duloxetine 30mg CAPSULE.DR PO SCH ×2 (08:23→20:11)
[2022-10-03] MEDS: clotrimazole topical cream 15gm tube TP SCH ×2 (08:23→20:00)
[2022-10-03] MEDS: ondansetron/PF 4mg/2ml inj IV PRN ×2 (08:44→15:05)
[2022-10-03] MEDS: budesonide 0.5mg/2ml UD nebule IH SCH ×2 (08:57→19:53)
--- NOTE | 2022-10-03 09:31 | NUR ---
Patient in room CICU 2008. I have received report from EH Pate and had the opportunity to ask questions and assume patient care.
--- NOTE | 2022-10-03 09:31 | NUR ---
Patient report given to tele nurse Esau STAUFFER. Patient going to room 3021I.
--- NOTE | 2022-10-03 10:17 | NUR ---
Daughter Emili updated over the phone and informed that pt was transferred to room 3020O.
--- NOTE | 2022-10-03 10:22 | NUR ---
Patient transferred to room 3027B with all belongings. Nurse Esau RN at bedside to receive pt.
--- NOTE | 2022-10-03 12:20 | NUR ---
paged Dr. Quarles re: Pt is complaining of a lot of lower back pain. states she takes norco at home. only has tylenol ordered.
[2022-10-03] MEDS: gabapentin 400mg capsule PO SCH ×2 (12:33→20:14)
[2022-10-03] MEDS: HYDROcodone/acetaminophen 5mg/325mg tablet PO PRN (12:34)
[2022-10-03] MEDS: insulin Lispro (HumaLOG) vial - multi-dose SQ SCH ×2 (14:25→19:22)
[2022-10-03] MEDS: sennosides/docusate sodium tablet OGT SCH (20:10)
[2022-10-03] MEDS: primidone 50mg tablet PO SCH (20:12)
[2022-10-03] MEDS: metoprolol tartrate 50mg tablet PO SCH (20:13)
[2022-10-03] MEDS: polyethylene glycol 3350 17gm powd pack OGT PRN (20:30)
[2022-10-03] MEDS: insulin glargine (Lantus) pen - multi-dose SQ SCH (21:00)
--- NOTE | 2022-10-03 23:54 | NUR ---
Per Dr. Cavazos hold the night time insulin tonight and have the day doctor address the pt's need for insulin.
--- NOTE | 2022-10-04 01:21 | NUR ---
MD order hold lantus 12 units tonight related to pt refused dinner.
[2022-10-04] MEDS: piperacillin/tazo 3.375gm/50ml 50 ML IV SCH ×4 (01:52→23:30)
[2022-10-04 02:00] VITALS: BP 104/53
[2022-10-04] MEDS: ipratropium/albuterol 3ml nebule NEB SCH ×6 (02:29→23:23)
--- NOTE | 2022-10-04 05:19 | NUR ---
Pt refused to go to bed multiple times, said no multiple times even staff try to multiple times to put her to bed, still refused, stated in the recline chair more comfort and I don't want to go to bed. leave me alone.
--- NOTE | 2022-10-04 05:51 | NUR ---
Pt is on bowel care, drank 1/2 miralax with 240 ml water, refused the rest of it x 3
--- NOTE | 2022-10-04 05:57 | NUR ---
Pt refused to get up for weight x 3.
--- NOTE | 2022-10-04 06:50 | NUR ---
Patient in room PCU 3027. I have received report from FLOR STAUFFER and had the opportunity to ask questions and assume patient care. NOTIFIED PATIENT NOT GIVEN LANTUS ON NOC SHIFT BUT IS AWARE. PATIENT IS ON LEVEL SIX OF THE PROTOCOL.
[2022-10-04 07:00] VITALS: BP 131/79
[2022-10-04] MEDS: budesonide 0.5mg/2ml UD nebule IH SCH ×2 (07:18→20:04)
[2022-10-04 07:20] LABS: BASOPHILS % (AUTO) 0.4 % (0-1); EOSINOPHILS % (AUTO) 0 % (0-6); HEMATOCRIT 40.9 % (35.0-45.0); HEMOGLOBIN 12.9 g/dl (12.0-16.0); LYMPHOCYTES # (AUTO) 1.3 X10'3 (1.1-4.8); LYMPHOCYTES % (AUTO) 13.1 % (21-51); MEAN CORPUSCULAR HEMOGLOBIN 30.1 PG (27.0-31.0); MEAN CORPUSCULAR HGB CONC 31.6 g/dL (33.0-36.5); MEAN CORPUSCULAR VOLUME 95.5 FL (78-98); MEAN PLATELET VOLUME 7.6 FL (7.4-10.4); MONOCYTES # (AUTO) 0.6 X10'3 (0-0.9); MONOCYTES % (AUTO) 5.7 % (2-12); NEUTROPHILS # (AUTO) 8.2 X10'3 (1.8-7.7); NEUTROPHILS % (AUTO) 80.8 % (42-75); PLATELET COUNT 398 X10'3 (140-440); RED BLOOD COUNT 4.28 X10'6 (4.20-5.60); RED CELL DISTRIBUTION WIDTH 16.5 % (11.5-14.5); WHITE BLOOD COUNT 10.1 X10'3 (4.5-11.0)
[2022-10-04 07:37] LABS: ALBUMIN 2.2 G/DL (3.4-5.0); ANION GAP 7 (8-16); BLOOD UREA NITROGEN 40 MG/DL (7-18); BUN/CREATININE RATIO 48.8 (6.6-38.0); CALCIUM 8.8 MG/DL (8.5-10.1); CHLORIDE 98 MMOL/L (99-107); CREATININE 0.82 MG/DL (0.40-0.90); GLUCOSE 166 MG/DL (70-104); MAGNESIUM 2.7 MG/DL (1.5-2.4); PHOSPHORUS 3.9 MG/DL (2.3-4.5); POTASSIUM 3.6 MMOL/L (3.5-5.1); SODIUM 136 MMOL/L (135-145); TOTAL CARBON DIOXIDE 30.7 MMOL/L (24-32); eGFR 70 ML/MIN
[2022-10-04] MEDS: LIRAGLUTIDE 0.6 MG/0.1 ML PEN.INJCTR SQ SCH (08:00)
[2022-10-04] MEDS: enoxaparin 40mg/0.4ml syringe SUBCUT SCH (08:01)
[2022-10-04] MEDS: duloxetine 30mg CAPSULE.DR PO SCH ×2 (08:02→21:56)
[2022-10-04] MEDS: cyclobenzaprine 10mg tablet PO SCH ×3 (08:02→21:59)
[2022-10-04] MEDS: aspirin 81mg tab.chew OGT SCH (08:02)
[2022-10-04] MEDS: gabapentin 400mg capsule PO SCH ×3 (08:02→21:56)
[2022-10-04] MEDS: loratadine 10mg tablet PO SCH (08:03)
[2022-10-04] MEDS: allopurinol 100mg tablet OGT SCH (08:03)
[2022-10-04] MEDS: amiodarone 200mg tablet OGT SCH ×2 (08:03→20:00)
[2022-10-04] MEDS: metoprolol tartrate 50mg tablet PO SCH ×2 (08:04→22:00)
[2022-10-04] MEDS: topiramate 25mg tablet PO SCH ×2 (08:05→21:58)
[2022-10-04] MEDS: clopidogrel 75mg tablet OGT SCH (08:05)
[2022-10-04] MEDS: ROFLUMILAST 500 MCG PO SCH (08:06)
[2022-10-04] MEDS: ERTUGLIFLOZIN PIDOLATE 15 MG PO SCH (08:06)
[2022-10-04] MEDS: methylPREDNISolone sod succ 125mg/2ml vial IV SCH ×2 (08:07→21:57)
[2022-10-04] MEDS: clotrimazole topical cream 15gm tube TP SCH ×2 (08:07→21:58)
[2022-10-04] MEDS: ondansetron/PF 4mg/2ml inj IV PRN (10:28)
[2022-10-04] MEDS: HYDROcodone/acetaminophen 5mg/325mg tablet PO PRN ×2 (10:29→17:45)
--- NOTE | 2022-10-04 15:40 | NUR ---
SPOKE WITH VIVIEN, REGARD POST RAPID. PATIENT HR AND BP DECREASE SHE THINKS THE BP MEDICATIONS GIVEN EARLIER HAVE TO CLEAR HIS SYSTEM. Addendum: 10/04/22 at 1812 by Martha Howard RN WRONG PATIENT
[2022-10-04] MEDS ORDERED: ondansetron 4mg rapidly disintigrating tab PO PRN (16:55)
[2022-10-04 18:00] VITALS: BP 113/77
--- NOTE | 2022-10-04 18:11 | NUR ---
Problems reprioritized. Patient report given, questions answered & plan of care reviewed with FLOR STAUFFER.
[2022-10-04] MEDS: insulin Lispro (HumaLOG) vial - multi-dose SQ SCH (19:18)
[2022-10-04] MEDS: insulin glargine (Lantus) pen - multi-dose SQ SCH (21:00)
[2022-10-04] MEDS: primidone 50mg tablet PO SCH (21:57)
[2022-10-04] MEDS: sennosides/docusate sodium tablet OGT SCH (21:57)
[2022-10-04 22:00] VITALS: BP 111/74
--- NOTE | 2022-10-04 22:37 | NUR ---
Pt refused HS Lantus. Pt also did not eat 3 meal today, only drank milk 1 service box milk for each meal.
[2022-10-05 02:00] VITALS: BP 98/65
[2022-10-05] MEDS: ipratropium/albuterol 3ml nebule NEB SCH ×6 (03:26→22:55)
[2022-10-05] MEDS: magnesium hydroxide 30ml (MOM) UD suspension OGT PRN (04:45)
--- NOTE | 2022-10-05 05:08 | NUR ---
Pt is on bowel care, primary nurse asked her would you like to drink MOM, pt said yes, when this nurse handed it to her, patient did not take it until 15 minutes finally drank, said you can leave med at bedside table I will drink it late, this nurse told her it is hospital policy nurses cannot leave med at bedside table, then patient said shut up your mouth, Pt is 2 persons javier chemical processing supervisor, refused to use bed nails for number 2, meantime Pt stated she does not want to go to rehabilitation, continue to monitor if pt have number 2 or not.
[2022-10-05 05:58] LABS: BASOPHILS % (AUTO) 0.1 % (0-1); EOSINOPHILS % (AUTO) 0 % (0-6); HEMATOCRIT 37.7 % (35.0-45.0); HEMOGLOBIN 12.3 g/dl (12.0-16.0); LYMPHOCYTES # (AUTO) 1.2 X10'3 (1.1-4.8); LYMPHOCYTES % (AUTO) 13.1 % (21-51); MEAN CORPUSCULAR HEMOGLOBIN 30.8 PG (27.0-31.0); MEAN CORPUSCULAR HGB CONC 32.8 g/dL (33.0-36.5); MEAN PLATELET VOLUME 7.5 FL (7.4-10.4); MONOCYTES # (AUTO) 0.3 X10'3 (0-0.9); NEUTROPHILS # (AUTO) 7.8 X10'3 (1.8-7.7); NEUTROPHILS % (AUTO) 83.8 % (42-75); PLATELET COUNT 323 X10'3 (140-440); RED BLOOD COUNT 4.01 X10'6 (4.20-5.60); RED CELL DISTRIBUTION WIDTH 16.3 % (11.5-14.5); WHITE BLOOD COUNT 9.3 X10'3 (4.5-11.0)
[2022-10-05 06:00] VITALS: BP 99/76
[2022-10-05 06:15] LABS: ALBUMIN 2.2 G/DL (3.4-5.0); ANION GAP 5 (8-16); BLOOD UREA NITROGEN 38 MG/DL (7-18); BUN/CREATININE RATIO 45.8 (6.6-38.0); CALCIUM 8.9 MG/DL (8.5-10.1); CHLORIDE 100 MMOL/L (99-107); CREATININE 0.83 MG/DL (0.40-0.90); GLUCOSE 170 MG/DL (70-104); MAGNESIUM 2.7 MG/DL (1.5-2.4); POTASSIUM 4.6 MMOL/L (3.5-5.1); PREALBUMIN 23.5 MG/DL (19-36); SODIUM 138 MMOL/L (135-145); eGFR 69 ML/MIN
[2022-10-05] MEDS: budesonide 0.5mg/2ml UD nebule IH SCH ×2 (07:23→19:22)
[2022-10-05] MEDS: LIRAGLUTIDE 0.6 MG/0.1 ML PEN.INJCTR SQ SCH (08:00)
[2022-10-05] MEDS: piperacillin/tazo 3.375gm/50ml 50 ML IV SCH ×2 (09:27→20:54)
[2022-10-05] MEDS: methylPREDNISolone sod succ 125mg/2ml vial IV SCH ×2 (09:27→20:54)
[2022-10-05] MEDS: clotrimazole topical cream 15gm tube TP SCH ×2 (09:27→22:34)
[2022-10-05] MEDS: clopidogrel 75mg tablet OGT SCH (09:28)
[2022-10-05] MEDS: loratadine 10mg tablet PO SCH (09:29)
[2022-10-05] MEDS: cyclobenzaprine 10mg tablet PO SCH ×3 (09:29→20:56)
[2022-10-05] MEDS: gabapentin 400mg capsule PO SCH ×3 (09:34→21:10)
[2022-10-05] MEDS: aspirin 81mg tab.chew OGT SCH (09:35)
[2022-10-05] MEDS: duloxetine 30mg CAPSULE.DR PO SCH ×2 (09:35→20:57)
[2022-10-05] MEDS: topiramate 25mg tablet PO SCH ×2 (09:35→20:57)
[2022-10-05] MEDS: ROFLUMILAST 500 MCG PO SCH (09:36)
[2022-10-05] MEDS: allopurinol 100mg tablet OGT SCH (09:36)
[2022-10-05] MEDS: ERTUGLIFLOZIN PIDOLATE 15 MG PO SCH (09:36)
[2022-10-05] MEDS: enoxaparin 40mg/0.4ml syringe SUBCUT SCH (09:42)
[2022-10-05 09:43] VITALS: BP 104/77
--- NOTE | 2022-10-05 09:43 | NUR ---
blood pressure medications held, at this time. Addendum: 10/05/22 at 0944 by Martha Howard RN Amended: Links added.
[2022-10-05] MEDS: polyethylene glycol 3350 17gm powd pack OGT PRN (14:02)
[2022-10-05] MEDS: HYDROcodone/acetaminophen 5mg/325mg tablet PO PRN ×2 (14:05→20:57)
[2022-10-05] MEDS: metoprolol tartrate 50mg tablet PO SCH ×2 (14:09→20:00)
[2022-10-05] MEDS: amiodarone 200mg tablet OGT SCH ×2 (14:10→20:00)
[2022-10-05 18:00] VITALS: BP 94/57
--- NOTE | 2022-10-05 18:15 | NUR ---
Assumed care of pt at this time report from Martha sears
--- NOTE | 2022-10-05 19:57 | NUR ---
Dr. Quarles stated ok to restart pt on Level 2 blood sugar protocol.
--- NOTE | 2022-10-05 20:05 | NUR ---
226 blood sugar taken after pt ate shake.
[2022-10-05] MEDS: sennosides/docusate sodium tablet OGT SCH (20:57)
[2022-10-05] MEDS: primidone 50mg tablet PO SCH (21:10)
[2022-10-05 21:30] VITALS: BP 88/62
[2022-10-05] MEDS: insulin glargine (Lantus) pen - multi-dose SQ SCH (22:32)
[2022-10-06] MEDS: piperacillin/tazo 3.375gm/50ml 50 ML IV SCH ×3 (01:58→16:00)
[2022-10-06 02:15] VITALS: BP 89/61
[2022-10-06] MEDS: ipratropium/albuterol 3ml nebule NEB SCH ×6 (02:34→22:00)
[2022-10-06 06:02] LABS: BASOPHILS % (AUTO) 0.2 % (0-1); EOSINOPHILS % (AUTO) 0 % (0-6); HEMATOCRIT 36.1 % (35.0-45.0); HEMOGLOBIN 11.6 g/dl (12.0-16.0); LYMPHOCYTES % (AUTO) 13.9 % (21-51); MEAN CORPUSCULAR HEMOGLOBIN 30.4 PG (27.0-31.0); MEAN CORPUSCULAR HGB CONC 32.1 g/dL (33.0-36.5); MEAN CORPUSCULAR VOLUME 94.8 FL (78-98); MEAN PLATELET VOLUME 7.9 FL (7.4-10.4); MONOCYTES # (AUTO) 0.3 X10'3 (0-0.9); MONOCYTES % (AUTO) 4.6 % (2-12); NEUTROPHILS # (AUTO) 5.8 X10'3 (1.8-7.7); NEUTROPHILS % (AUTO) 81.3 % (42-75); PLATELET COUNT 286 X10'3 (140-440); RED BLOOD COUNT 3.81 X10'6 (4.20-5.60); RED CELL DISTRIBUTION WIDTH 16.2 % (11.5-14.5); WHITE BLOOD COUNT 7.1 X10'3 (4.5-11.0)
[2022-10-06 06:15] LABS: ALBUMIN 2.3 G/DL (3.4-5.0); ANION GAP 3 (8-16); BLOOD UREA NITROGEN 33 MG/DL (7-18); BUN/CREATININE RATIO 41.3 (6.6-38.0); CHLORIDE 101 MMOL/L (99-107); GLUCOSE 190 MG/DL (70-104); MAGNESIUM 2.7 MG/DL (1.5-2.4); PHOSPHORUS 3.9 MG/DL (2.3-4.5); POTASSIUM 4.9 MMOL/L (3.5-5.1); SODIUM 136 MMOL/L (135-145); TOTAL CARBON DIOXIDE 31.6 MMOL/L (24-32); eGFR 72 ML/MIN
--- NOTE | 2022-10-06 06:28 | NUR ---
Report given to Martha STAUFFER.
[2022-10-06 07:00] VITALS: BP 118/68
[2022-10-06] MEDS: budesonide 0.5mg/2ml UD nebule IH SCH ×2 (07:28→19:16)
[2022-10-06] MEDS: clotrimazole topical cream 15gm tube TP SCH ×2 (08:00→19:44)
[2022-10-06] MEDS: insulin Lispro (HumaLOG) vial - multi-dose SQ SCH ×2 (09:24→19:55)
[2022-10-06] MEDS: enoxaparin 40mg/0.4ml syringe SUBCUT SCH (09:27)
[2022-10-06] MEDS: metoprolol tartrate 50mg tablet PO SCH ×2 (09:28→19:43)
[2022-10-06] MEDS: gabapentin 400mg capsule PO SCH ×3 (09:28→21:23)
[2022-10-06] MEDS: clopidogrel 75mg tablet OGT SCH (09:29)
[2022-10-06] MEDS: amiodarone 200mg tablet OGT SCH ×2 (09:29→19:41)
[2022-10-06] MEDS: topiramate 25mg tablet PO SCH ×2 (09:29→19:44)
[2022-10-06] MEDS: cyclobenzaprine 10mg tablet PO SCH ×3 (09:29→21:24)
[2022-10-06] MEDS: methylPREDNISolone sod succ 125mg/2ml vial IV SCH ×2 (09:30→19:34)
[2022-10-06] MEDS: aspirin 81mg tab.chew OGT SCH (09:30)
[2022-10-06] MEDS: loratadine 10mg tablet PO SCH (09:30)
[2022-10-06] MEDS: allopurinol 100mg tablet OGT SCH (09:30)
[2022-10-06] MEDS: ROFLUMILAST 500 MCG PO SCH (09:31)
[2022-10-06] MEDS: ERTUGLIFLOZIN PIDOLATE 15 MG PO SCH (09:31)
[2022-10-06] MEDS: duloxetine 30mg CAPSULE.DR PO SCH ×2 (09:34→21:58)
[2022-10-06] MEDS: HYDROcodone/acetaminophen 5mg/325mg tablet PO PRN (09:34)
--- NOTE | 2022-10-06 13:42 | NUR ---
PAGER ID: [phone] MESSAGE: [id number] Milady Kapoor She is requesting to get her Norcos changed to 10's like she takes at home. She says the norco5 doesn't touch her. [email or web address] [id number]
--- NOTE | 2022-10-06 15:05 | NUR ---
CALLED ADMITTING REGARDING THE PATIENTS WALLET, THE PATIENT WOULD LIKE HER WALLET TO VERIFY A CARD IS IN HER WALLET. ADMITTING CALLED BACK SPOKE WITH Stephani SOTO, PER BRITTANY IN ADMITTING AND THERE PROTOCOL, THE BELONGING CANNOT BE GIVEN TO THE PATIENT UNTIL DISCHARGE AND THEY COME DOWN TO SIGN FOR THEM.
[2022-10-06] MEDS: HYDROcodone/acetaminophen 10/325mg tab PO PRN ×2 (15:31→19:58)
--- NOTE | 2022-10-06 16:25 | NUR ---
promotional table spacer PAGER ID: [phone] MESSAGE: [id number] Milady Kapoor No insulin given at lunch time, BS was 142. Martha [id number]
[2022-10-06 18:00] VITALS: BP 102/55
--- NOTE | 2022-10-06 18:41 | NUR ---
Problems reprioritized. Patient report given, questions answered & plan of care reviewed with Ezra STAUFFER.
[2022-10-06] MEDS: insulin glargine (Lantus) pen - multi-dose SQ SCH (21:00)
[2022-10-06] MEDS: sennosides/docusate sodium tablet OGT SCH (21:24)
[2022-10-06] MEDS: primidone 50mg tablet PO SCH (21:58)
[2022-10-06 22:00] VITALS: BP 107/77
[2022-10-07] MEDS: piperacillin/tazo 3.375gm/50ml 50 ML IV SCH ×3 (00:16→16:00)
[2022-10-07 02:00] VITALS: BP 117/77
[2022-10-07] MEDS: ipratropium/albuterol 3ml nebule NEB SCH ×6 (03:44→23:13)
[2022-10-07 06:21] LABS: BASOPHILS % (AUTO) 0 % (0-1); EOSINOPHILS % (AUTO) 0 % (0-6); HEMATOCRIT 34.1 % (35.0-45.0); HEMOGLOBIN 11.3 g/dl (12.0-16.0); LYMPHOCYTES # (AUTO) 1.2 X10'3 (1.1-4.8); LYMPHOCYTES % (AUTO) 17.6 % (21-51); MEAN CORPUSCULAR HEMOGLOBIN 31.2 PG (27.0-31.0); MEAN CORPUSCULAR HGB CONC 33.1 g/dL (33.0-36.5); MEAN CORPUSCULAR VOLUME 94.3 FL (78-98); MEAN PLATELET VOLUME 7.7 FL (7.4-10.4); MONOCYTES # (AUTO) 0.3 X10'3 (0-0.9); MONOCYTES % (AUTO) 4.8 % (2-12); NEUTROPHILS # (AUTO) 5.4 X10'3 (1.8-7.7); NEUTROPHILS % (AUTO) 77.6 % (42-75); PLATELET COUNT 279 X10'3 (140-440); RED BLOOD COUNT 3.62 X10'6 (4.20-5.60)
[2022-10-07 06:50] LABS: ALBUMIN 2.4 G/DL (3.4-5.0); ANION GAP 9 (8-16); BLOOD UREA NITROGEN 25 MG/DL (7-18); BUN/CREATININE RATIO 30.9 (6.6-38.0); CALCIUM 8.8 MG/DL (8.5-10.1); CHLORIDE 100 MMOL/L (99-107); CREATININE 0.81 MG/DL (0.40-0.90); GLUCOSE 180 MG/DL (70-104); MAGNESIUM 2.4 MG/DL (1.5-2.4); PHOSPHORUS 3.3 MG/DL (2.3-4.5); POTASSIUM 4.2 MMOL/L (3.5-5.1); SODIUM 137 MMOL/L (135-145); TOTAL CARBON DIOXIDE 28.4 MMOL/L (24-32); eGFR 71 ML/MIN
[2022-10-07 07:00] VITALS: BP 98/68
[2022-10-07] MEDS: budesonide 0.5mg/2ml UD nebule IH SCH ×2 (07:49→19:03)
[2022-10-07] MEDS: metoprolol tartrate 50mg tablet PO SCH ×2 (08:00→20:43)
[2022-10-07] MEDS: methylPREDNISolone sod succ 125mg/2ml vial IV SCH (08:37)
[2022-10-07] MEDS: allopurinol 100mg tablet OGT SCH (08:38)
[2022-10-07] MEDS: enoxaparin 40mg/0.4ml syringe SUBCUT SCH (08:38)
[2022-10-07] MEDS: amiodarone 200mg tablet OGT SCH ×2 (08:38→20:42)
[2022-10-07] MEDS: topiramate 25mg tablet PO SCH ×2 (08:39→20:42)
[2022-10-07] MEDS: loratadine 10mg tablet PO SCH (08:39)
[2022-10-07] MEDS: aspirin 81mg tab.chew OGT SCH (08:39)
[2022-10-07] MEDS: clopidogrel 75mg tablet OGT SCH (08:39)
[2022-10-07] MEDS: cyclobenzaprine 10mg tablet PO SCH ×3 (08:39→20:39)
[2022-10-07] MEDS: duloxetine 30mg CAPSULE.DR PO SCH ×2 (08:40→20:39)
[2022-10-07] MEDS: gabapentin 400mg capsule PO SCH ×3 (08:40→20:41)
[2022-10-07] MEDS: ROFLUMILAST 500 MCG PO SCH (08:41)
[2022-10-07] MEDS: ERTUGLIFLOZIN PIDOLATE 15 MG PO SCH (08:41)
[2022-10-07] MEDS: clotrimazole topical cream 15gm tube TP SCH ×2 (08:46→20:43)
[2022-10-07] MEDS: HYDROcodone/acetaminophen 10/325mg tab PO PRN ×3 (09:00→20:32)
--- NOTE | 2022-10-07 10:28 | NUR ---
am INSULIN NOT GIVEN: PT ONLY HAD MILK FOR BREAKFAST.
[2022-10-07 13:00] VITALS: BP 105/68
[2022-10-07 18:00] VITALS: BP 110/74
--- NOTE | 2022-10-07 18:00 | NUR ---
Patient in room PCU 3027. I have received report from Danuta STAUFFER and had the opportunity to ask questions and assume patient care.
--- NOTE | 2022-10-07 18:00 | NUR ---
Patient in room PCU 3027. I have received report from Danuta STAUFFER and had the opportunity to ask questions and assume patient care.
[2022-10-07] MEDS: insulin Lispro (HumaLOG) vial - multi-dose SQ SCH (20:37)
[2022-10-07] MEDS: primidone 50mg tablet PO SCH (20:40)
[2022-10-07] MEDS: sennosides/docusate sodium tablet OGT SCH (20:46)
[2022-10-07] MEDS: insulin glargine (Lantus) pen - multi-dose SQ SCH (21:52)
[2022-10-07 22:00] VITALS: BP 101/55
[2022-10-08 02:00] VITALS: BP 104/60
--- NOTE | 2022-10-08 03:03 | NUR ---
Patient in room U 3027. I have received report from ASIF STAUFFER and had the opportunity to ask questions and assume patient care.UNKNOWN SOURCE OF BLEED PER RN, O+/IRRADIATED. WILL CONTACT [facility] FOR FURTHER INSTRUCTIONS. Addendum: 10/08/22 at 0312 by Jessy Farias RN JANETTE PATIENT, AMEND. JAGUAR STAUFFER
[2022-10-08] MEDS: ipratropium/albuterol 3ml nebule NEB SCH ×6 (03:19→22:42)
[2022-10-08 06:00] VITALS: BP 108/46
[2022-10-08 06:33] LABS: BASOPHILS % (AUTO) 0.2 % (0-1); EOSINOPHILS % (AUTO) 0.3 % (0-6); HEMOGLOBIN 11.1 g/dl (12.0-16.0); LYMPHOCYTES # (AUTO) 1.7 X10'3 (1.1-4.8); LYMPHOCYTES % (AUTO) 19.3 % (21-51); MEAN CORPUSCULAR HEMOGLOBIN 30.7 PG (27.0-31.0); MEAN CORPUSCULAR HGB CONC 32.6 g/dL (33.0-36.5); MEAN CORPUSCULAR VOLUME 94.2 FL (78-98); MEAN PLATELET VOLUME 7.7 FL (7.4-10.4); MONOCYTES # (AUTO) 0.6 X10'3 (0-0.9); MONOCYTES % (AUTO) 7.2 % (2-12); NEUTROPHILS # (AUTO) 6.3 X10'3 (1.8-7.7); PLATELET COUNT 290 X10'3 (140-440); RED BLOOD COUNT 3.61 X10'6 (4.20-5.60); WHITE BLOOD COUNT 8.7 X10'3 (4.5-11.0)
[2022-10-08 06:39] LABS: ALBUMIN 2.3 G/DL (3.4-5.0); ANION GAP 5 (8-16); BLOOD UREA NITROGEN 18 MG/DL (7-18); BUN/CREATININE RATIO 25.4 (6.6-38.0); CALCIUM 9.1 MG/DL (8.5-10.1); CHLORIDE 102 MMOL/L (99-107); CREATININE 0.71 MG/DL (0.40-0.90); GLUCOSE 133 MG/DL (70-104); MAGNESIUM 2.3 MG/DL (1.5-2.4); PHOSPHORUS 3.2 MG/DL (2.3-4.5); POTASSIUM 3.8 MMOL/L (3.5-5.1); PREALBUMIN 25.7 MG/DL (19-36); SODIUM 135 MMOL/L (135-145); TOTAL CARBON DIOXIDE 27.8 MMOL/L (24-32); eGFR 82 ML/MIN
--- NOTE | 2022-10-08 06:46 | NUR ---
Patient in room PCU 3027. I have received report from EH Jiménez and had the opportunity to ask questions and assume patient care.
--- NOTE | 2022-10-08 06:47 | NUR ---
Problems reprioritized. Patient report given, questions answered & plan of care reviewed with BEAU STAUFFER.
[2022-10-08] MEDS: albuterol 2.5 MG/3 ML nebule NEB PRN (07:36)
[2022-10-08] MEDS: budesonide 0.5mg/2ml UD nebule IH SCH ×2 (07:36→20:54)
[2022-10-08] MEDS: topiramate 25mg tablet PO SCH ×2 (07:53→19:42)
[2022-10-08] MEDS: gabapentin 400mg capsule PO SCH ×3 (07:54→19:33)
[2022-10-08] MEDS: cyclobenzaprine 10mg tablet PO SCH ×3 (07:54→19:32)
[2022-10-08] MEDS: duloxetine 30mg CAPSULE.DR PO SCH ×2 (07:54→19:33)
[2022-10-08] MEDS: allopurinol 100mg tablet OGT SCH (07:54)
[2022-10-08] MEDS: loratadine 10mg tablet PO SCH (07:55)
[2022-10-08] MEDS: metoprolol tartrate 50mg tablet PO SCH ×2 (07:55→19:38)
[2022-10-08] MEDS: clopidogrel 75mg tablet OGT SCH (07:55)
[2022-10-08] MEDS: amiodarone 200mg tablet OGT SCH ×2 (07:56→19:41)
[2022-10-08] MEDS: ROFLUMILAST 500 MCG PO SCH (07:56)
[2022-10-08] MEDS: aspirin 81mg tab.chew OGT SCH (07:56)
[2022-10-08] MEDS: enoxaparin 40mg/0.4ml syringe SUBCUT SCH (07:57)
[2022-10-08] MEDS: ERTUGLIFLOZIN PIDOLATE 15 MG PO SCH (07:57)
[2022-10-08] MEDS: HYDROcodone/acetaminophen 10/325mg tab PO PRN ×3 (07:59→22:01)
[2022-10-08] MEDS: clotrimazole topical cream 15gm tube TP SCH ×2 (08:00→20:00)
[2022-10-08] MEDS ORDERED: prednisone 10mg tablet PO SCH (08:30)
[2022-10-08] MEDS: insulin Lispro (HumaLOG) vial - multi-dose SQ SCH ×3 (09:19→19:31)
--- NOTE | 2022-10-08 10:26 | NUR ---
F/u 10/08: Pt remains on pureed/thin diet per MANHOLE STRIPPER recs PO ~23% avg meals not meeting needs. Pt seen by FLORINDA at bedside; confirms that she does not like pureed foods but is drinking juices/milkshakes and all liquid oral intake. Pt is agreeable to Ensure Plus High Protein TIDWM. FLORINDA d/w DO who is agreeable to ONS; pending physician verification in EMR. Sepsis now resolved per DO note; updated estimated nutrient needs. LBM 10/07 now having BM's following initial 11 days constipation per EMR. Will monitor for ONS Acceptance and further nutrition intervention needs this admit. Recommendations: 1. continue pureed/thin diet; advance to regular per MANHOLE STRIPPER/MD recs given poor intake hx; encourage PO 2. milkshakes TIDWM since accepting of liquids intake 3. Ensure Plus High Protein TIDWM; pending physician verification in EMR 4. Routine bowel care 5. weekly wts Addendum: 10/08/22 at [address] Amended: Links added.
[2022-10-08 11:00] VITALS: BP 90/53
[2022-10-08] MEDS: LIDOcaine Viscous 15ml cup MM SCH ×4 (11:00→23:00)
[2022-10-08] MEDS: LACTOSE-REDUCED FOOD (ENSURE PLUS-HP) VANILLA 237 ML BOTTLE PO SCH ×2 (13:00→18:00)
[2022-10-08 15:00] VITALS: BP 95/52
[2022-10-08 18:00] VITALS: BP 97/49
--- NOTE | 2022-10-08 18:08 | NUR ---
Patient in room PCU 3027. I have received report from Danuta STAUFFER and had the opportunity to ask questions and assume patient care.
--- NOTE | 2022-10-08 18:19 | NUR ---
Problems reprioritized. Patient report given, questions answered & plan of care reviewed with EH Jiménez.
[2022-10-08] MEDS: primidone 50mg tablet PO SCH (19:34)
[2022-10-08] MEDS: valacyclovir 500mg tablet PO SCH (19:35)
[2022-10-08] MEDS: sennosides/docusate sodium tablet OGT SCH (21:00)
[2022-10-08 22:00] VITALS: BP 94/55
[2022-10-08] MEDS: insulin glargine (Lantus) pen - multi-dose SQ SCH (22:11)
[2022-10-09] VITALS (40 sets, daily range): BP systolic 50–166; BP diastolic 32–94
--- NOTE | 2022-10-09 00:29 | NUR ---
GOT PATIENT UP WITH SIT TO STAND-RETOOK VITAL SIGNS-O2 SATS DROPPED TO 60'S-PUT ON NON-REBREATHER, SUCTIONED, PAGED RT TO FURTHER ASSESS. ON 15L , PAGING MD FOR ONE TIME ORDER OF LASIX. WILL MONITOR FOR S/S OF HYPOXIA, RESPIRATORY DISTRESS. JAGUAR sears.
[2022-10-09] MEDS ORDERED: furosemide 40mg/4ml inj IV ONE ×2 (00:40→01:30)
--- NOTE | 2022-10-09 01:00 | NUR ---
RAPID RESPONSE CALLED
--- NOTE | 2022-10-09 01:03 | NUR ---
IV BAD, REORDERING LASIX ORAL. PT HARD STICK, NEEDS US
[2022-10-09] MEDS ORDERED: furosemide 40mg tablet PO ONE (01:05)
[2022-10-09 01:35] LABS: ABG BASE EXCESS 1.1 mmol/L (-2.0-2.0); ABG HCO3 26.2 mmol/L (22.0-26.0); ABG OXYGEN SATURATION 99.2 % (94-97); ABG PCO2 (T) 43.2 mmHg (32.0-45.0); ALLEN'S TEST POSITIVE; FCOHb 0.4 % (0.0-3.9); FLOW 15 L/min; FMetHb 0.6 % (0.0-1.5); FO2Hb 98.2 % (94-97); TOTAL HEMOGLOBIN 13.7 G/dl (12.0-16.0)
[2022-10-09] MEDS ORDERED: LIDOcaine 2% 10ml TOPICAL JELLY (Urojet) TP ONE (01:35)
--- NOTE | 2022-10-09 02:03 | NUR ---
Rapid Response: [id number] A rapid response was called on this patient. On arrival to bedside, the patient was having labored respirations, on a non rebreather, sats 100%, opening eyes weakly to painful stimuli. COLLECTION SYSTEMS FOREMAN at bedside attempting to place IV access. Interventions: Rapid response outcome: [Lasix given via IO. Patient maintaining sats at 96% on 6L, placed on CPAP. Rosales placed by Tele zinc furnace charger. Answering questions to voice. Dr. Solo updated on patient's status, no need to draw follow-up ABG unless patient's condition deteriorates per MD. Relayed to primary RN, Tele zinc furnace charger and RT. ]
[2022-10-09] MEDS: ipratropium/albuterol 3ml nebule NEB SCH ×6 (02:18→23:11)
[2022-10-09] MEDS ORDERED: diltiazem-NS 100mg/100ml 100 ML IV SCH (03:30)
--- NOTE | 2022-10-09 04:40 | NUR ---
Called back up to see patient by primary RN and Tele discharge rn. Patient hypotensive, HR not controlled by Cardizem, Afib w/RVR in the 140s to 160s, drip stopped. Dr. Solo notified, states that he will contact the supervisor garage to transfer patient to ICU. Nursing district supervisor notified. Preparing patient to transport on security monitor with RT.
--- NOTE | 2022-10-09 04:45 | NUR ---
STOPPED CARDIZEM GTT, NOT TOLERATING BP WOODS-CALLED ICU CHARGE DOTTIE. PATIENTS RR 35, HR AFIB 140'S-170'S, BP 88/35, 51/50/34. ORDERS TO TRANSFER TO ICU PER DR. YOUNGBLOOD. REPORT GIVEN TO RAJ TECHNICAL OPERATIONS SPECIALIST, PATIENT GOING TO 2007. JAGUAR STAUFFER
--- NOTE | 2022-10-09 04:51 | NUR ---
CALLED POA TO INFORM OF STATUS/ROOM CHANGE. JAGUAR STAUFFER
[2022-10-09] MEDS ORDERED: amiodarone 150mg/dext, iso-os 100 ML IV ONE (05:05)
[2022-10-09] MEDS: amiodarone/D5 360MG/200ML BAG 200 ML IV SCH ×2 (05:24→23:17)
[2022-10-09] MEDS: LIDOcaine Viscous 15ml cup MM SCH ×3 (07:00→15:00)
[2022-10-09] MEDS: budesonide 0.5mg/2ml UD nebule IH SCH ×2 (07:15→19:17)
--- NOTE | 2022-10-09 07:15 | NUR ---
Pt's albuterol svn tx held due to rapid afib. Pulmicort svn being held due to Dr stating pt has sores in her mouth in progress notes. Pt unable to rinse mouth out after steroid tx.
--- NOTE | 2022-10-09 07:49 | NUR ---
ATTEMPTS TO PHONE HALLIE MCKAY THIS AM FOR LINE PLACEMENT.X2
[2022-10-09] MEDS: loratadine 10mg tablet PO SCH (08:00)
[2022-10-09] MEDS: clotrimazole topical cream 15gm tube TP SCH ×2 (08:00→20:00)
[2022-10-09] MEDS: ROFLUMILAST 500 MCG PO SCH (08:00)
[2022-10-09] MEDS: LACTOSE-REDUCED FOOD (ENSURE PLUS-HP) VANILLA 237 ML BOTTLE PO SCH ×3 (08:00→18:00)
[2022-10-09] MEDS: clopidogrel 75mg tablet OGT SCH (08:00)
[2022-10-09] MEDS: ERTUGLIFLOZIN PIDOLATE 15 MG PO SCH (08:00)
[2022-10-09 08:17] LABS: BASOPHILS # (AUTO) 0.1 X10'3 (0-0.2); BASOPHILS % (AUTO) 0.3 % (0-1); EOSINOPHILS % (AUTO) 0 % (0-6); HEMATOCRIT 39.7 % (35.0-45.0); HEMOGLOBIN 12.8 g/dl (12.0-16.0); LYMPHOCYTES # (AUTO) 1.1 X10'3 (1.1-4.8); LYMPHOCYTES % (AUTO) 3.5 % (21-51); MEAN CORPUSCULAR HEMOGLOBIN 30.8 PG (27.0-31.0); MEAN CORPUSCULAR HGB CONC 32.3 g/dL (33.0-36.5); MEAN CORPUSCULAR VOLUME 95.4 FL (78-98); MEAN PLATELET VOLUME 7.9 FL (7.4-10.4); MONOCYTES # (AUTO) 0.9 X10'3 (0-0.9); MONOCYTES % (AUTO) 2.8 % (2-12); NEUTROPHILS # (AUTO) 29.4 X10'3 (1.8-7.7); NEUTROPHILS % (AUTO) 93.4 % (42-75); PLATELET COUNT 361 X10'3 (140-440); RED BLOOD COUNT 4.16 X10'6 (4.20-5.60); RED CELL DISTRIBUTION WIDTH 16.5 % (11.5-14.5)
[2022-10-09 08:19] LABS: WHITE BLOOD COUNT 31.5 X10'3 (4.5-11.0)
[2022-10-09] MEDS ORDERED: normal saline 1000ml 1,000 ML IVB ONE (08:55)
[2022-10-09] MEDS: normal saline 1000ml 1,000 ML IV SCH (09:00)
[2022-10-09 09:13] LABS: TOTAL CELLS COUNTED 100
[2022-10-09 09:14] LABS: ANISOCYTOSIS 1+; PLATELET ESTIMATE NORMAL
[2022-10-09] MEDS ORDERED: vancomycin 1,750 MG in NS 350ml IV soln IV ONE (09:45)
[2022-10-09 09:54] LABS: ALBUMIN 2.5 G/DL (3.4-5.0); ANION GAP 10 (8-16); BLOOD UREA NITROGEN 23 MG/DL (7-18); BUN/CREATININE RATIO 21.1 (6.6-38.0); CALCIUM 9.1 MG/DL (8.5-10.1); CHLORIDE 98 MMOL/L (99-107); CREATININE 1.09 MG/DL (0.40-0.90); GLUCOSE 142 MG/DL (70-104); PHOSPHORUS 3.3 MG/DL (2.3-4.5); POTASSIUM 3.9 MMOL/L (3.5-5.1); SODIUM 136 MMOL/L (135-145); TOTAL CARBON DIOXIDE 28.2 MMOL/L (24-32); eGFR 50 ML/MIN
[2022-10-09] MEDS: cefepime 2g/NS 100ml ADVANTAGE 100 ML IV SCH ×2 (10:08→18:30)
--- NOTE | 2022-10-09 11:00 | NUR ---
Pt on non-rebreather mask at 10 lpm, which is the minimum for this mask. vitals charting will not allow me to enter NBRM at 10 lpm Addendum: 10/09/22 at [address] Amended: Links added.
--- NOTE | 2022-10-09 11:02 | NUR ---
F/u 10/09: Pt s/p rapid response, transferred to critical care early this morning. Pt continues on a pureed diet with thin liquids per ST recs d/t pt being edentulous. Pt also continues with a CHO controlled restriction despite no PMH DM with A1c 5.6%. D/w recommendation for diet liberalization to MM5 with removal of CHO restriction as pt continually states she isn't eating the food d/t disliking the pureed texture and per ST note pt with difficulty chewing and no difficulty swallowing. MD agrees to diet liberalization. Physician has signed off on ONS, lunch today to be the first time pt receives it. Will continue to follow closely. Addendum: 10/09/22 at [address] Amended: Links added.
[2022-10-09] MEDS: cyclobenzaprine 10mg tablet PO SCH ×4 (11:26→22:30)
[2022-10-09] MEDS: duloxetine 30mg CAPSULE.DR PO SCH ×3 (11:26→22:19)
[2022-10-09] MEDS: metoprolol tartrate 50mg tablet PO SCH ×4 (11:27→22:31)
[2022-10-09] MEDS: topiramate 25mg tablet PO SCH ×3 (11:27→22:32)
[2022-10-09] MEDS: allopurinol 100mg tablet OGT SCH (11:28)
[2022-10-09] MEDS: amiodarone 200mg tablet OGT SCH (11:28)
[2022-10-09] MEDS: predniSONE 20 mg tablet PO SCH (11:28)
[2022-10-09] MEDS: aspirin 81mg tab.chew OGT SCH (11:29)
[2022-10-09] MEDS: valacyclovir 500mg tablet PO SCH ×3 (11:29→22:26)
[2022-10-09] MEDS: gabapentin 400mg capsule PO SCH ×4 (11:37→22:32)
[2022-10-09] MEDS: HYDROcodone/acetaminophen 10/325mg tab PO PRN ×2 (11:38→22:28)
[2022-10-09] MEDS: enoxaparin 40mg/0.4ml syringe SUBCUT SCH (11:39)
[2022-10-09] MEDS: famotidine/PF 10 mg/ml inj IV SCH ×2 (12:15→22:29)
[2022-10-09] MEDS ORDERED: NORepinephrine 8mg/ 250ml NS 250 ML IV ONE (14:33)
[2022-10-09 16:02] LABS: ABG BASE EXCESS -0.6 mmol/L (-2.0-2.0); ABG HCO3 25.5 mmol/L (22.0-26.0); ABG OXYGEN SATURATION 98.9 % (94-97); ABG PCO2 (T) 48.5 mmHg (32.0-45.0); ABG PO2 (T) 153.7 mmHg (75.0-100.0); FCOHb 0.3 % (0.0-3.9); FMetHb 0.5 % (0.0-1.5); FO2Hb 98.1 % (94-97); PATIENT TEMPERATURE 37.1; TOTAL HEMOGLOBIN 12.1 G/dl (12.0-16.0)
[2022-10-09] MEDS: NORepinephrine 8mg/ 250ml NS 250 ML IV SCH (17:50)
[2022-10-09] MEDS: primidone 50mg tablet PO SCH ×2 (20:18→22:34)
[2022-10-09] MEDS: sennosides/docusate sodium tablet OGT SCH (20:18)
[2022-10-09] MEDS: vancomycin/NS 1 GM ADD-VANTAGE 250 ML IV SCH (21:28)
[2022-10-09] MEDS: insulin glargine (Lantus) pen - multi-dose SQ SCH (21:31)
[2022-10-09] MEDS: insulin Lispro (HumaLOG) vial - multi-dose SQ SCH (21:33)
--- NOTE | 2022-10-09 23:19 | NUR ---
pt awake with moist cough producing small/moderate amount thick hameed sputum. placed on n/c at 3lpm to allow for efective sputum expectoration and will monitor. SVN given with BAN neb via mask
[2022-10-10] VITALS (43 sets, daily range): BP systolic 71–158; BP diastolic 37–92
[2022-10-10] MEDS: cefepime 2g/NS 100ml ADVANTAGE 100 ML IV SCH ×3 (00:26→20:00)
--- NOTE | 2022-10-10 01:32 | NUR ---
pt awake.alert and oriented x 3 on 3L O2 via nasal cannula. Pt refuses ng insertion at this time.
[2022-10-10] MEDS: amiodarone/D5 360MG/200ML BAG 200 ML IV SCH ×6 (01:57→23:33)
[2022-10-10 02:16] LABS: BASOPHILS # (AUTO) 0.1 X10'3 (0-0.2); BASOPHILS % (AUTO) 0.4 % (0-1); EOSINOPHILS % (AUTO) 0.1 % (0-6); HEMATOCRIT 32.1 % (35.0-45.0); HEMOGLOBIN 10.3 g/dl (12.0-16.0); LYMPHOCYTES % (AUTO) 4.3 % (21-51); MEAN CORPUSCULAR HEMOGLOBIN 30.5 PG (27.0-31.0); MEAN CORPUSCULAR HGB CONC 32.2 g/dL (33.0-36.5); MEAN CORPUSCULAR VOLUME 94.6 FL (78-98); MEAN PLATELET VOLUME 7.7 FL (7.4-10.4); MONOCYTES # (AUTO) 0.6 X10'3 (0-0.9); MONOCYTES % (AUTO) 2.5 % (2-12); NEUTROPHILS # (AUTO) 21.1 X10'3 (1.8-7.7); NEUTROPHILS % (AUTO) 92.7 % (42-75); PLATELET COUNT 320 X10'3 (140-440); RED BLOOD COUNT 3.39 X10'6 (4.20-5.60); RED CELL DISTRIBUTION WIDTH 16.7 % (11.5-14.5); WHITE BLOOD COUNT 22.8 X10'3 (4.5-11.0)
[2022-10-10 02:35] LABS: ALANINE AMINOTRANSFERASE 37 U/L (12-78); ALBUMIN 2.1 G/DL (3.4-5.0); ALBUMIN/GLOBULIN RATIO 0.6 (1.1-1.5); ALKALINE PHOSPHATASE 77 IU/L (46-116); ANION GAP 8 (8-16); ASPARTATE AMINO TRANSFERASE 13 U/L (10-37); BILIRUBIN,TOTAL 0.5 MG/DL (0.1-1.0); BLOOD UREA NITROGEN 23 MG/DL (7-18); BUN/CREATININE RATIO 31.1 (6.6-38.0); CALCIUM 8.4 MG/DL (8.5-10.1); CHLORIDE 103 MMOL/L (99-107); CREATININE 0.74 MG/DL (0.40-0.90); GLUCOSE 148 MG/DL (70-104); POTASSIUM 3.5 MMOL/L (3.5-5.1); SODIUM 136 MMOL/L (135-145); TOTAL CARBON DIOXIDE 25.3 MMOL/L (24-32); TOTAL PROTEIN 5.4 G/DL (6.4-8.2); eGFR 79 ML/MIN
[2022-10-10] MEDS: ipratropium/albuterol 3ml nebule NEB SCH ×6 (03:01→23:23)
[2022-10-10] MEDS: HYDROcodone/acetaminophen 10/325mg tab PO PRN ×4 (03:12→17:10)
[2022-10-10] MEDS: NORepinephrine 8mg/ 250ml NS 250 ML IV SCH ×2 (03:12→17:50)
[2022-10-10] MEDS: enoxaparin 40mg/0.4ml syringe SUBCUT SCH (07:28)
[2022-10-10] MEDS: gabapentin 400mg capsule PO SCH ×2 (07:31→20:42)
[2022-10-10] MEDS: allopurinol 100mg tablet OGT SCH (07:31)
[2022-10-10] MEDS: metoprolol tartrate 50mg tablet PO SCH ×3 (07:31→20:41)
[2022-10-10] MEDS: loratadine 10mg tablet PO SCH (07:31)
[2022-10-10] MEDS: valacyclovir 500mg tablet PO SCH ×2 (07:31→20:42)
[2022-10-10] MEDS: topiramate 25mg tablet PO SCH ×2 (07:32→20:43)
[2022-10-10] MEDS: duloxetine 30mg CAPSULE.DR PO SCH ×2 (07:32→20:43)
[2022-10-10] MEDS: cyclobenzaprine 10mg tablet PO SCH ×3 (07:32→20:42)
[2022-10-10] MEDS: famotidine/PF 10 mg/ml inj IV SCH ×2 (07:33→20:44)
[2022-10-10] MEDS: aspirin 81mg tab.chew OGT SCH (07:33)
[2022-10-10] MEDS: ROFLUMILAST 500 MCG PO SCH (08:00)
[2022-10-10] MEDS: clotrimazole topical cream 15gm tube TP SCH ×2 (08:00→20:00)
[2022-10-10] MEDS: ERTUGLIFLOZIN PIDOLATE 15 MG PO SCH (08:00)
[2022-10-10] MEDS: vancomycin/NS 1 GM ADD-VANTAGE 250 ML IV SCH ×2 (10:05→22:32)
[2022-10-10] MEDS: LACTOSE-REDUCED FOOD (ENSURE PLUS-HP) VANILLA 237 ML BOTTLE PO SCH ×2 (13:00→18:06)
[2022-10-10] MEDS: insulin Lispro (HumaLOG) vial - multi-dose SQ SCH ×2 (14:26→20:47)
[2022-10-10] MEDS ORDERED: albumin (human) 25% 100 ML IV solution IV ONE (14:45)
[2022-10-10] MEDS ORDERED: midodrine tablet 2.5 MG TABLET PO SCH (16:00)
[2022-10-10] MEDS ORDERED: midodrine 5mg tablet OGT SCH (16:42)
[2022-10-10] MEDS ORDERED: LIDOcaine Viscous 15ml cup MM SCH (18:45)
[2022-10-10] MEDS: budesonide 0.5mg/2ml UD nebule IH SCH (19:52)
[2022-10-10] MEDS: sennosides/docusate sodium tablet OGT SCH (20:42)
[2022-10-10] MEDS: primidone 50mg tablet PO SCH (20:43)
[2022-10-10] MEDS: insulin glargine (Lantus) pen - multi-dose SQ SCH (20:57)
[2022-10-10] MEDS ORDERED: VANCOMYCIN LEVEL IV ONE (21:30)
[2022-10-11] VITALS (24 sets, daily range): BP systolic 76–154; BP diastolic 51–91
[2022-10-11] MEDS: amiodarone/D5 360MG/200ML BAG 200 ML IV SCH ×6 (02:05→23:49)
[2022-10-11] MEDS: midodrine 5mg tablet OGT SCH ×3 (02:13→17:15)
[2022-10-11] MEDS: ipratropium/albuterol 3ml nebule NEB SCH ×7 (02:58→22:50)
[2022-10-11 02:59] LABS: BASOPHILS # (AUTO) 0.1 X10'3 (0-0.2); BASOPHILS % (AUTO) 0.4 % (0-1); EOSINOPHILS # (AUTO) 0.2 X10'3 (0-0.9); EOSINOPHILS % (AUTO) 1.3 % (0-6); HEMATOCRIT 28.1 % (35.0-45.0); LYMPHOCYTES # (AUTO) 1.2 X10'3 (1.1-4.8); LYMPHOCYTES % (AUTO) 8.7 % (21-51); MEAN CORPUSCULAR HEMOGLOBIN 30.7 PG (27.0-31.0); MEAN CORPUSCULAR VOLUME 96.1 FL (78-98); MEAN PLATELET VOLUME 8.1 FL (7.4-10.4); MONOCYTES # (AUTO) 0.6 X10'3 (0-0.9); MONOCYTES % (AUTO) 4.5 % (2-12); NEUTROPHILS # (AUTO) 11.7 X10'3 (1.8-7.7); NEUTROPHILS % (AUTO) 85.1 % (42-75); PLATELET COUNT 280 X10'3 (140-440); RED BLOOD COUNT 2.92 X10'6 (4.20-5.60); RED CELL DISTRIBUTION WIDTH 17.1 % (11.5-14.5); WHITE BLOOD COUNT 13.8 X10'3 (4.5-11.0)
[2022-10-11 03:10] LABS: ALANINE AMINOTRANSFERASE 29 U/L (12-78); ALBUMIN 2.2 G/DL (3.4-5.0); ALBUMIN/GLOBULIN RATIO 0.7 (1.1-1.5); ALKALINE PHOSPHATASE 80 IU/L (46-116); ANION GAP 9 (8-16); ASPARTATE AMINO TRANSFERASE 12 U/L (10-37); BILIRUBIN,TOTAL 0.5 MG/DL (0.1-1.0); BLOOD UREA NITROGEN 12 MG/DL (7-18); CALCIUM 8.8 MG/DL (8.5-10.1); CHLORIDE 103 MMOL/L (99-107); CREATININE 0.63 MG/DL (0.40-0.90); GLUCOSE 169 MG/DL (70-104); POTASSIUM 3.5 MMOL/L (3.5-5.1); SODIUM 138 MMOL/L (135-145); TOTAL CARBON DIOXIDE 26.5 MMOL/L (24-32); TOTAL PROTEIN 5.5 G/DL (6.4-8.2); eGFR > 90 ML/MIN
--- NOTE | 2022-10-11 06:30 | NUR ---
Patient in room CICU 2007. I have received report and had the opportunity to ask questions and assume patient care.
[2022-10-11] MEDS: budesonide 0.5mg/2ml UD nebule IH SCH ×2 (07:02→19:23)
[2022-10-11] MEDS: NORepinephrine 8mg/ 250ml NS 250 ML IV SCH ×2 (07:17→18:43)
[2022-10-11] MEDS: cefepime 2g/NS 100ml ADVANTAGE 100 ML IV SCH ×2 (07:30→19:18)
[2022-10-11] MEDS: duloxetine 30mg CAPSULE.DR PO SCH ×2 (07:33→20:18)
[2022-10-11] MEDS: gabapentin 400mg capsule PO SCH (07:33)
[2022-10-11] MEDS: metoprolol tartrate 50mg tablet PO SCH (07:33)
[2022-10-11] MEDS: valacyclovir 500mg tablet PO SCH ×2 (07:34→19:36)
[2022-10-11] MEDS: loratadine 10mg tablet PO SCH (07:34)
[2022-10-11] MEDS: topiramate 25mg tablet PO SCH ×2 (07:35→19:36)
[2022-10-11] MEDS: cyclobenzaprine 10mg tablet PO SCH ×3 (07:35→20:17)
[2022-10-11] MEDS: aspirin 81mg tab.chew OGT SCH (07:35)
[2022-10-11] MEDS: allopurinol 100mg tablet OGT SCH (07:36)
[2022-10-11] MEDS: famotidine/PF 10 mg/ml inj IV SCH ×2 (07:38→19:22)
[2022-10-11] MEDS: ERTUGLIFLOZIN PIDOLATE 15 MG PO SCH (08:00)
[2022-10-11] MEDS: ROFLUMILAST 500 MCG PO SCH (08:00)
[2022-10-11] MEDS: clotrimazole topical cream 15gm tube TP SCH ×2 (08:00→20:00)
[2022-10-11] MEDS: LACTOSE-REDUCED FOOD (ENSURE PLUS-HP) VANILLA 237 ML BOTTLE PO SCH ×3 (08:00→18:00)
[2022-10-11] MEDS: normal saline 1000ml 1,000 ML IV SCH (09:00)
[2022-10-11] MEDS: predniSONE 20 mg tablet PO SCH (09:12)
[2022-10-11] MEDS: insulin Lispro (HumaLOG) vial - multi-dose SQ SCH ×4 (09:18→21:05)
[2022-10-11] MEDS ORDERED: ringers solution, lacted 1,000 ML IV ONE (09:40)
--- NOTE | 2022-10-11 09:50 | NUR ---
Pt complaining of chest pain, 12 lead obtained, Dr Olsen to bedside to assess, Lasix and morphine IVP ordered.
[2022-10-11] MEDS: morphine 2 MG/ML inj. syringe IV PRN (10:05)
[2022-10-11] MEDS: furosemide 20 MG/2 ML vial IV SCH (10:05)
[2022-10-11] MEDS: vancomycin/NS 1 GM ADD-VANTAGE 250 ML IV SCH ×2 (12:53→22:54)
[2022-10-11] MEDS ORDERED: LORazepam 2 mg/ml vial IV ONE (13:25)
[2022-10-11] MEDS ORDERED: DEXMEDETOMIDINE IN 0.9 % NACL 50 ML IV SCH (13:25)
--- NOTE | 2022-10-11 13:30 | NUR ---
Pt placed on BiPAP
[2022-10-11 13:42] LABS: ABG BASE EXCESS 1.2 mmol/L (-2.0-2.0); ABG HCO3 24.8 mmol/L (22.0-26.0); ABG OXYGEN SATURATION 89.3 % (94-97); ABG PCO2 (T) 35.9 mmHg (32.0-45.0); FCOHb 0.3 % (0.0-3.9); FLOW 4 L/min; FMetHb 0.3 % (0.0-1.5); FO2Hb 88.8 % (94-97); PATIENT TEMPERATURE 37.3; TOTAL HEMOGLOBIN 10.6 G/dl (12.0-16.0)
[2022-10-11] MEDS: albuterol 2.5 MG/3 ML nebule NEB PRN (17:14)
[2022-10-11] MEDS: dexmedetomidine inj. 400 MCG in normal saline 100ml IV soln 96 ML IV SCH (18:16)
--- NOTE | 2022-10-11 18:30 | NUR ---
Problems reprioritized. Patient report given, questions answered & plan of care reviewed with EH Mccartney.
[2022-10-11] MEDS: apixaban 2.5mg tablet PO SCH (19:35)
[2022-10-11] MEDS: sennosides/docusate sodium tablet OGT SCH (21:00)
[2022-10-11] MEDS: insulin glargine (Lantus) pen - multi-dose SQ SCH (21:07)
[2022-10-11] MEDS: primidone 50mg tablet PO SCH (21:18)
[2022-10-12] VITALS (23 sets, daily range): BP systolic 88–160; BP diastolic 42–97
[2022-10-12] MEDS: midodrine 5mg tablet OGT SCH ×3 (00:11→17:37)
[2022-10-12] MEDS: dexmedetomidine inj. 400 MCG in normal saline 100ml IV soln 96 ML IV SCH ×2 (00:50→02:57)
[2022-10-12] MEDS: morphine 2 MG/ML inj. syringe IV PRN ×2 (01:18→18:53)
[2022-10-12] MEDS: ipratropium/albuterol 3ml nebule NEB SCH ×6 (03:07→23:10)
[2022-10-12] MEDS: NORepinephrine 8mg/ 250ml NS 250 ML IV SCH ×2 (03:18→18:54)
[2022-10-12 04:23] LABS: BASOPHILS # (AUTO) 0.1 X10'3 (0-0.2); BASOPHILS % (AUTO) 0.6 % (0-1); EOSINOPHILS % (AUTO) 0.2 % (0-6); HEMATOCRIT 26.9 % (35.0-45.0); HEMOGLOBIN 8.9 g/dl (12.0-16.0); MEAN CORPUSCULAR HEMOGLOBIN 31.3 PG (27.0-31.0); MEAN CORPUSCULAR HGB CONC 33.3 g/dL (33.0-36.5); MEAN CORPUSCULAR VOLUME 94.3 FL (78-98); MONOCYTES # (AUTO) 0.4 X10'3 (0-0.9); MONOCYTES % (AUTO) 5.2 % (2-12); NEUTROPHILS # (AUTO) 6.7 X10'3 (1.8-7.7); PLATELET COUNT 278 X10'3 (140-440); RED BLOOD COUNT 2.85 X10'6 (4.20-5.60); RED CELL DISTRIBUTION WIDTH 17.1 % (11.5-14.5); WHITE BLOOD COUNT 8.1 X10'3 (4.5-11.0)
[2022-10-12 04:30] LABS: ALANINE AMINOTRANSFERASE 25 U/L (12-78); ALBUMIN/GLOBULIN RATIO 0.5 (1.1-1.5); ALKALINE PHOSPHATASE 77 IU/L (46-116); ANION GAP 8 (8-16); BILIRUBIN,TOTAL 0.5 MG/DL (0.1-1.0); BLOOD UREA NITROGEN 15 MG/DL (7-18); BUN/CREATININE RATIO 31.9 (6.6-38.0); CALCIUM 8.9 MG/DL (8.5-10.1); CHLORIDE 105 MMOL/L (99-107); CREATININE 0.47 MG/DL (0.40-0.90); GLUCOSE 133 MG/DL (70-104); SODIUM 140 MMOL/L (135-145); TOTAL CARBON DIOXIDE 27.3 MMOL/L (24-32); TOTAL PROTEIN 5.7 G/DL (6.4-8.2); eGFR > 90 ML/MIN
[2022-10-12 04:32] LABS: ASPARTATE AMINO TRANSFERASE 19 U/L (10-37); POTASSIUM 3.7 MMOL/L (3.5-5.1)
--- NOTE | 2022-10-12 06:30 | NUR ---
Patient in room CICU 2008. I have received report from EH Pelletier and had the opportunity to ask questions and assume patient care.
[2022-10-12] MEDS: budesonide 0.5mg/2ml UD nebule IH SCH ×2 (07:08→19:20)
[2022-10-12 07:23] LABS: ABG BASE EXCESS 2.7 mmol/L (-2.0-2.0); ABG HCO3 26.5 mmol/L (22.0-26.0); ABG OXYGEN SATURATION 95.8 % (94-97); ABG PCO2 (T) 37.7 mmHg (32.0-45.0); FCOHb 0.4 % (0.0-3.9); FLOW 3 L/min; FMetHb 0.3 % (0.0-1.5); FO2Hb 95.1 % (94-97)
[2022-10-12] MEDS: cefepime 2g/NS 100ml ADVANTAGE 100 ML IV SCH ×2 (07:29→20:25)
[2022-10-12] MEDS: cyclobenzaprine 10mg tablet PO SCH ×3 (07:30→20:26)
[2022-10-12] MEDS: aspirin 81mg tab.chew OGT SCH (07:30)
[2022-10-12] MEDS: loratadine 10mg tablet PO SCH (07:30)
[2022-10-12] MEDS: duloxetine 30mg CAPSULE.DR PO SCH ×2 (07:30→20:27)
[2022-10-12] MEDS: topiramate 25mg tablet PO SCH ×2 (07:31→20:25)
[2022-10-12] MEDS: valacyclovir 500mg tablet PO SCH ×2 (07:31→20:26)
[2022-10-12] MEDS: apixaban 2.5mg tablet PO SCH ×2 (07:31→20:28)
[2022-10-12] MEDS: allopurinol 100mg tablet OGT SCH (07:31)
[2022-10-12] MEDS: furosemide 20 MG/2 ML vial IV SCH (07:32)
[2022-10-12] MEDS: famotidine/PF 10 mg/ml inj IV SCH ×2 (07:32→20:26)
[2022-10-12] MEDS: ERTUGLIFLOZIN PIDOLATE 15 MG PO SCH (07:32)
[2022-10-12] MEDS: ROFLUMILAST 500 MCG PO SCH (07:32)
[2022-10-12] MEDS: clotrimazole topical cream 15gm tube TP SCH ×2 (08:00→20:29)
[2022-10-12] MEDS: predniSONE 20 mg tablet PO SCH (08:53)
[2022-10-12] MEDS: LACTOSE-REDUCED FOOD (ENSURE PLUS-HP) VANILLA 237 ML BOTTLE PO SCH ×3 (08:54→18:34)
[2022-10-12] MEDS: insulin Lispro (HumaLOG) vial - multi-dose SQ SCH ×2 (08:58→15:01)
[2022-10-12] MEDS: vancomycin/NS 1 GM ADD-VANTAGE 250 ML IV SCH ×2 (10:01→22:40)
[2022-10-12] MEDS: HYDROcodone/acetaminophen 10/325mg tab PO PRN ×2 (11:23→17:37)
--- NOTE | 2022-10-12 11:45 | NUR ---
Dr Canales at bedside to discuss plan of care and code status with pt and her daughters and son-in-law. Pt wishes to remain a full code at this time despite likely need for tracheostomy if she requires intubation again.
--- NOTE | 2022-10-12 12:14 | NUR ---
F/u 10/12: Pt tolerating MM5/thin diet PO continues to fluctuate though ~50% recent documented meals w/ occasional 0% at nights. % ONS intake not documented; per RN this AM pt drank 100% ONS yesterday and today in addition to shakes TIDWM. Given these PO trends pt meeting estimated needs. LBM 10/08 w/ senna held last night for "not needed" in EMR; unsure accuracy but would benefit from utilization of PRN bowel care meds. Will monitor for further PO trends and nutrition intervention needst his admit. Recommendations: 1. continue MM5/thin diet; goal is regular texture, to liberalize per ST; encourage PO 2. milkshakes TIDWM since accepting of liquids intake 3. Ensure Plus High Protein TIDW 4. Routine bowel care; utilize bowel regimen w/ 4 days constipation 5. weekly wts Addendum: 10/12/22 at [address] Amended: Links added.
--- NOTE | 2022-10-12 12:30 | NUR ---
Left radial arterial line discontinued.
[2022-10-12] MEDS ORDERED: amiodarone 200mg tablet PO ONE (13:29)
--- NOTE | 2022-10-12 13:38 | NUR ---
Pt being prepped for PICC line insertion.
--- NOTE | 2022-10-12 14:31 | NUR ---
Pt pulled her arm back during PICC placement an PICC RN was unable to place PICC line. Pressure dressing was placed by PICC RN to right upper extremity. PICC RN stated that another attempt at PICC placement will be made tomorrow. Pt sat up for lunch.
--- NOTE | 2022-10-12 18:35 | NUR ---
Problems reprioritized. Patient report given, questions answered & plan of care reviewed with EH Velasco.
--- NOTE | 2022-10-12 18:35 | NUR ---
I have received report and assumed care on pt admitted to ICU 09/25 with acute hypoxemia respiratory failure, Pt is currently on 4 liters N/C noted relevant history includes CVA, Heart failure, COPD, asthma, DM2, smoking, chronic pain, GERD and psychiatric disorders. Pt is pleasantly confused, speaks in full sentences without difficulties. Generalized weeping skin noted. Levophed being titrated to keep map greater then 65 via CVL. Assessment complete.
[2022-10-12] MEDS: sennosides/docusate sodium tablet OGT SCH (20:27)
[2022-10-12] MEDS: amiodarone 200mg tablet PO SCH (20:27)
[2022-10-12] MEDS: primidone 50mg tablet PO SCH (20:28)
[2022-10-12] MEDS: insulin glargine (Lantus) pen - multi-dose SQ SCH (22:41)
[2022-10-13] VITALS (31 sets, daily range): BP systolic 90–149; BP diastolic 48–114
[2022-10-13] MEDS: midodrine 5mg tablet OGT SCH ×3 (01:01→16:09)
[2022-10-13 03:00] LABS: CHLORIDE 105 MMOL/L (99-107); GLUCOSE 126 MG/DL (70-104); POTASSIUM 3.3 MMOL/L (3.5-5.1); SODIUM 140 MMOL/L (135-145)
[2022-10-13 03:01] LABS: ALANINE AMINOTRANSFERASE 18 U/L (12-78); ALBUMIN/GLOBULIN RATIO 0.6 (1.1-1.5); ALKALINE PHOSPHATASE 74 IU/L (46-116); ANION GAP 7 (8-16); ASPARTATE AMINO TRANSFERASE 13 U/L (10-37); BILIRUBIN,TOTAL 0.4 MG/DL (0.1-1.0); BLOOD UREA NITROGEN 17 MG/DL (7-18); BUN/CREATININE RATIO 29.3 (6.6-38.0); CALCIUM 9.1 MG/DL (8.5-10.1); CREATININE 0.58 MG/DL (0.40-0.90); TOTAL PROTEIN 5.6 G/DL (6.4-8.2); eGFR > 90 ML/MIN
[2022-10-13 03:04] LABS: HEMATOCRIT 26.9 % (35.0-45.0); HEMOGLOBIN 8.6 g/dl (12.0-16.0); RED BLOOD COUNT 2.83 X10'6 (4.20-5.60); WHITE BLOOD COUNT 8.2 X10'3 (4.5-11.0)
[2022-10-13 03:05] LABS: LYMPHOCYTES % (AUTO) 18.1 % (21-51); MEAN CORPUSCULAR HEMOGLOBIN 30.4 PG (27.0-31.0); MEAN CORPUSCULAR VOLUME 94.9 FL (78-98); MEAN PLATELET VOLUME 7.5 FL (7.4-10.4); NEUTROPHILS % (AUTO) 72.8 % (42-75); PLATELET COUNT 274 X10'3 (140-440); RED CELL DISTRIBUTION WIDTH 17.3 % (11.5-14.5)
[2022-10-13 03:06] LABS: BASOPHILS % (AUTO) 0.3 % (0-1); EOSINOPHILS # (AUTO) 0.1 X10'3 (0-0.9); EOSINOPHILS % (AUTO) 0.8 % (0-6); LYMPHOCYTES # (AUTO) 1.5 X10'3 (1.1-4.8); MONOCYTES # (AUTO) 0.7 X10'3 (0-0.9)
[2022-10-13] MEDS: ipratropium/albuterol 3ml nebule NEB SCH ×6 (03:29→23:35)
[2022-10-13] MEDS: potassium Cl 20mEq/100mL bag 100 ML IV PRN ×2 (04:14→08:42)
[2022-10-13] MEDS: morphine 2 MG/ML inj. syringe IV PRN (04:14)
--- NOTE | 2022-10-13 06:08 | NUR ---
report given to receiving rn plan of care reviewed
[2022-10-13] MEDS: budesonide 0.5mg/2ml UD nebule IH SCH ×2 (07:07→19:18)
[2022-10-13 07:28] LABS: MAGNESIUM 2.1 MG/DL (1.5-2.4); PHOSPHORUS 2.4 MG/DL (2.3-4.5)
[2022-10-13] MEDS: apixaban 2.5mg tablet PO SCH ×2 (07:46→20:12)
[2022-10-13] MEDS: duloxetine 30mg CAPSULE.DR PO SCH ×2 (07:46→20:10)
[2022-10-13] MEDS: allopurinol 100mg tablet OGT SCH (07:46)
[2022-10-13] MEDS: valacyclovir 500mg tablet PO SCH ×2 (07:47→20:12)
[2022-10-13] MEDS: aspirin 81mg tab.chew OGT SCH (07:47)
[2022-10-13] MEDS: topiramate 25mg tablet PO SCH ×2 (07:47→20:12)
[2022-10-13] MEDS: loratadine 10mg tablet PO SCH (07:48)
[2022-10-13] MEDS: cyclobenzaprine 10mg tablet PO SCH ×3 (07:48→20:11)
[2022-10-13] MEDS: amiodarone 200mg tablet PO SCH ×2 (07:48→20:09)
[2022-10-13] MEDS: ERTUGLIFLOZIN PIDOLATE 15 MG PO SCH (07:48)
[2022-10-13] MEDS: ROFLUMILAST 500 MCG PO SCH (07:49)
[2022-10-13] MEDS: cefepime 2g/NS 100ml ADVANTAGE 100 ML IV SCH ×2 (07:49→20:30)
[2022-10-13] MEDS: famotidine/PF 10 mg/ml inj IV SCH ×2 (07:49→20:14)
[2022-10-13] MEDS ORDERED: etomidate 2mg/ml inj. ONE (08:00)
[2022-10-13] MEDS ORDERED: rocuronium 10mg/ml inj IV ONE ×2 (08:00→10:50)
[2022-10-13] MEDS: LACTOSE-REDUCED FOOD (ENSURE PLUS-HP) VANILLA 237 ML BOTTLE PO SCH ×3 (08:39→18:00)
[2022-10-13] MEDS: clotrimazole topical cream 15gm tube TP SCH ×2 (08:40→20:14)
[2022-10-13] MEDS: predniSONE 20 mg tablet PO SCH (08:41)
[2022-10-13] MEDS: normal saline 1000ml 1,000 ML IV SCH (09:00)
[2022-10-13] MEDS: NORepinephrine 8mg/ 250ml NS 250 ML IV SCH (09:32)
[2022-10-13] MEDS: vancomycin/NS 1 GM ADD-VANTAGE 250 ML IV SCH ×2 (10:04→22:07)
[2022-10-13] MEDS ORDERED: digoxin 250mcg/ml 2ml ampule IV ONE ×3 (10:50→23:00)
[2022-10-13] MEDS ORDERED: etomidate 2mg/ml inj. IV ONE (10:50)
[2022-10-13] MEDS ORDERED: FENTANYL-0.9 % NACL/PF 100 ML IV PRN (11:15)
--- NOTE | 2022-10-13 11:32 | NUR ---
Pt intubated with 7.[address] Canales. 23 cm at teeth.
[2022-10-13] MEDS: FENTANYL-0.9 % NACL/PF 100 ML IV PRN ×2 (11:37→22:45)
[2022-10-13] MEDS: propofol 1000mg/100ml bottle 100 ML IV SCH ×2 (11:39→19:54)
--- NOTE | 2022-10-13 12:03 | NUR ---
F/u 10/13: Pt intubated after rounds this AM likely to have trach/PEG placement tomorrow per synthetic department supervisor. TF to start following PEG placement per synthetic department supervisor; recs below. Propofol started at 2.676ml/hr providing 71 kcals/day; will need to monitor for TF rec adjustment needs w/ Propofol rates. Recommendations: 1. Once TF per MD; Vital HP at 65ml/hr goal would provide 1560ml volume/day, 1560 kcals, 1304ml water, and 136g protein 2. Once TF; additional water flush 100ml Q4H; monitor serum Na 3. Once TF; PALB Q /; daily scaled wts 4. Routine bowel care; utilize bowel regimen w/ 5 days constipation Addendum: 10/13/22 at [address] Amended: Links added.
[2022-10-13 13:44] LABS: ABG BASE EXCESS 0.6 mmol/L (-2.0-2.0); ABG HCO3 26.4 mmol/L (22.0-26.0); ABG OXYGEN SATURATION 98.6 % (94-97); ABG PO2 (T) 141.3 mmHg (75.0-100.0); ALLEN'S TEST POSITIVE; FCOHb 0.3 % (0.0-3.9); FMetHb 0.3 % (0.0-1.5); PEEP 5 cm H2O; RESPIRATORY RATE 16 b/min; TIDAL VOLUME 450 mL; TOTAL HEMOGLOBIN 10.2 G/dl (12.0-16.0)
[2022-10-13 14:59] LABS: TRIGLYCERIDES 139 MG/DL (20-135)
[2022-10-13] MEDS: insulin Lispro (HumaLOG) vial - multi-dose SQ SCH ×2 (15:29→20:23)
--- NOTE | 2022-10-13 15:30 | NUR ---
Right fem central line discontinued
--- NOTE | 2022-10-13 18:28 | NUR ---
Problems reprioritized. Patient report given, questions answered & plan of care reviewed with EH Kebede.
--- NOTE | 2022-10-13 18:30 | NUR ---
Patient in room CICU 2007. I have received report from Casey STAUFFER and had the opportunity to ask questions and assume patient care.
[2022-10-13] MEDS: sennosides/docusate sodium tablet OGT SCH (20:11)
[2022-10-13] MEDS: primidone 50mg tablet PO SCH (20:11)
[2022-10-13] MEDS: insulin glargine (Lantus) pen - multi-dose SQ SCH (20:22)
[2022-10-14] VITALS (36 sets, daily range): BP systolic 83–135; BP diastolic 46–87
[2022-10-14] MEDS: midodrine 5mg tablet OGT SCH ×3 (00:10→16:25)
[2022-10-14] MEDS: NORepinephrine 8mg/ 250ml NS 250 ML IV SCH ×2 (00:39→09:34)
[2022-10-14] MEDS: insulin Lispro (HumaLOG) vial - multi-dose SQ SCH ×3 (02:03→20:47)
[2022-10-14 02:28] LABS: BASOPHILS % (AUTO) 0.4 % (0-1); EOSINOPHILS % (AUTO) 0.4 % (0-6); HEMATOCRIT 26.5 % (35.0-45.0); HEMOGLOBIN 8.6 g/dl (12.0-16.0); LYMPHOCYTES # (AUTO) 0.6 X10'3 (1.1-4.8); LYMPHOCYTES % (AUTO) 9.7 % (21-51); MEAN CORPUSCULAR HGB CONC 32.3 g/dL (33.0-36.5); MEAN PLATELET VOLUME 7.9 FL (7.4-10.4); MONOCYTES # (AUTO) 0.5 X10'3 (0-0.9); MONOCYTES % (AUTO) 7.3 % (2-12); NEUTROPHILS # (AUTO) 5.3 X10'3 (1.8-7.7); NEUTROPHILS % (AUTO) 82.2 % (42-75); PLATELET COUNT 252 X10'3 (140-440); RED BLOOD COUNT 2.76 X10'6 (4.20-5.60); RED CELL DISTRIBUTION WIDTH 17.5 % (11.5-14.5); WHITE BLOOD COUNT 6.5 X10'3 (4.5-11.0)
[2022-10-14 02:40] LABS: ALANINE AMINOTRANSFERASE 21 U/L (12-78); ALBUMIN 1.9 G/DL (3.4-5.0); ALBUMIN/GLOBULIN RATIO 0.5 (1.1-1.5); ALKALINE PHOSPHATASE 128 IU/L (46-116); ANION GAP 5 (8-16); ASPARTATE AMINO TRANSFERASE 13 U/L (10-37); BILIRUBIN,TOTAL 0.5 MG/DL (0.1-1.0); BLOOD UREA NITROGEN 14 MG/DL (7-18); BUN/CREATININE RATIO 29.8 (6.6-38.0); CALCIUM 8.6 MG/DL (8.5-10.1); CHLORIDE 106 MMOL/L (99-107); CREATININE 0.47 MG/DL (0.40-0.90); GLUCOSE 141 MG/DL (70-104); MAGNESIUM 2.1 MG/DL (1.5-2.4); POTASSIUM 4.3 MMOL/L (3.5-5.1); SODIUM 139 MMOL/L (135-145); TOTAL CARBON DIOXIDE 27.7 MMOL/L (24-32); TOTAL PROTEIN 5.6 G/DL (6.4-8.2); TRIGLYCERIDES 293 MG/DL (20-135); eGFR > 90 ML/MIN
[2022-10-14 02:58] LABS: ANISOCYTOSIS 1+; PLATELET ESTIMATE NORMAL
[2022-10-14 02:59] LABS: POLYCHROMASIA FEW; TEAR DROP CELLS 1+
[2022-10-14] MEDS: ipratropium/albuterol 3ml nebule NEB SCH ×6 (03:15→23:35)
[2022-10-14] MEDS: FENTANYL-0.9 % NACL/PF 100 ML IV PRN ×2 (03:39→09:34)
[2022-10-14 03:49] LABS: ABG BASE EXCESS -0.6 mmol/L (-2.0-2.0); ABG OXYGEN SATURATION 98.3 % (94-97); ABG PCO2 (T) 37.4 mmHg (32.0-45.0); ABG PO2 (T) 118.9 mmHg (75.0-100.0); FCOHb 0.3 % (0.0-3.9); FMetHb 0.5 % (0.0-1.5); FO2Hb 97.5 % (94-97); PATIENT TEMPERATURE 36.1; PEEP 5 cm H2O; RESPIRATORY RATE 16 b/min; TIDAL VOLUME 450 mL; TOTAL HEMOGLOBIN 9.2 G/dl (12.0-16.0)
--- NOTE | 2022-10-14 06:30 | NUR ---
Patient in room CICU 2008. I have received report from Marlyn and had the opportunity to ask questions and assume patient care.
[2022-10-14] MEDS: budesonide 0.5mg/2ml UD nebule IH SCH ×2 (07:08→21:00)
--- NOTE | 2022-10-14 07:10 | NUR ---
0700 propofol pulled bottle dropped on floor and shattered, second bottle pulled
--- NOTE | 2022-10-14 07:19 | NUR ---
Upon initial ventilator check, documentation was incorrect for intubation date and time. Pt was intubated 10/13/22 at unknown time. No documentation found in chart by patients care team on the day patient was intubated. Addendum: 10/14/22 at 0723 by Brenda Lombardo RT Amended: Links added.
[2022-10-14] MEDS: LACTOSE-REDUCED FOOD (ENSURE PLUS-HP) VANILLA 237 ML BOTTLE PO SCH ×3 (08:00→17:30)
[2022-10-14] MEDS: clotrimazole topical cream 15gm tube TP SCH ×2 (08:00→20:43)
[2022-10-14] MEDS: famotidine/PF 10 mg/ml inj IV SCH ×2 (09:35→20:14)
[2022-10-14] MEDS: cefepime 2g/NS 100ml ADVANTAGE 100 ML IV SCH ×2 (09:35→22:12)
[2022-10-14] MEDS: amiodarone 200mg tablet PO SCH (09:36)
[2022-10-14] MEDS: loratadine 10mg tablet PO SCH (09:36)
[2022-10-14] MEDS: valacyclovir 500mg tablet PO SCH (09:36)
[2022-10-14] MEDS: topiramate 25mg tablet PO SCH (09:37)
[2022-10-14] MEDS: aspirin 81mg tab.chew OGT SCH (09:37)
[2022-10-14] MEDS: allopurinol 100mg tablet OGT SCH (09:37)
[2022-10-14] MEDS: cyclobenzaprine 10mg tablet PO SCH (09:37)
[2022-10-14] MEDS: predniSONE 20 mg tablet PO SCH (09:37)
[2022-10-14] MEDS: duloxetine 30mg CAPSULE.DR PO SCH (09:38)
[2022-10-14] MEDS: ERTUGLIFLOZIN PIDOLATE 15 MG PO SCH (09:38)
[2022-10-14] MEDS: ROFLUMILAST 500 MCG PO SCH (09:39)
[2022-10-14] MEDS: vancomycin/NS 1 GM ADD-VANTAGE 250 ML IV SCH ×2 (10:40→22:12)
[2022-10-14] MEDS ORDERED: DEXTROSE 15 GM of carb/4 tabs (each vial/BOTTLE has 4 tablets) OGT PRN (11:08)
[2022-10-14] MEDS ORDERED: ondansetron 4mg/5ml UD cup OGT PRN (11:12)
[2022-10-14] MEDS: fentaNYL/NS/PF 2,500 mcg/250mL 250 ML IV PRN (13:39)
[2022-10-14] MEDS: cyclobenzaprine 10mg tablet OGT SCH ×2 (13:40→20:12)
--- NOTE | 2022-10-14 18:18 | NUR ---
Problems reprioritized. Patient report given, questions answered & plan of care reviewed with Liudmila STAUFFER.
--- NOTE | 2022-10-14 18:20 | NUR ---
Patient in room CICU 2007. I have received report from Margoth STAUFFER and had the opportunity to ask questions and assume patient care.
[2022-10-14] MEDS: propofol 1000mg/100ml bottle 100 ML IV SCH (18:43)
[2022-10-14] MEDS: duloxetine 30mg CAPSULE.DR OGT SCH (20:11)
[2022-10-14] MEDS: amiodarone 200mg tablet OGT SCH (20:12)
[2022-10-14] MEDS: primidone 50mg tablet OGT SCH (20:12)
[2022-10-14] MEDS: valacyclovir 500mg tablet OGT SCH (20:13)
[2022-10-14] MEDS: sennosides/docusate sodium tablet OGT SCH (20:13)
[2022-10-14] MEDS: topiramate 25mg tablet OGT SCH (20:13)
[2022-10-14] MEDS: insulin glargine (Lantus) pen - multi-dose SQ SCH (20:53)
[2022-10-15] VITALS (33 sets, daily range): BP systolic 83–132; BP diastolic 41–77
[2022-10-15] MEDS: midodrine 5mg tablet OGT SCH ×3 (00:20→15:42)
[2022-10-15] MEDS: fentaNYL/NS/PF 2,500 mcg/250mL 250 ML IV PRN ×3 (01:57→14:04)
[2022-10-15 02:26] LABS: BASOPHILS % (AUTO) 0.4 % (0-1); EOSINOPHILS % (AUTO) 0.6 % (0-6); HEMATOCRIT 27.8 % (35.0-45.0); HEMOGLOBIN 8.8 g/dl (12.0-16.0); LYMPHOCYTES # (AUTO) 1.5 X10'3 (1.1-4.8); LYMPHOCYTES % (AUTO) 19.1 % (21-51); MEAN CORPUSCULAR HEMOGLOBIN 30.7 PG (27.0-31.0); MEAN CORPUSCULAR HGB CONC 31.6 g/dL (33.0-36.5); MEAN CORPUSCULAR VOLUME 97.3 FL (78-98); MEAN PLATELET VOLUME 8.1 FL (7.4-10.4); MONOCYTES # (AUTO) 0.6 X10'3 (0-0.9); MONOCYTES % (AUTO) 7.5 % (2-12); NEUTROPHILS # (AUTO) 5.6 X10'3 (1.8-7.7); NEUTROPHILS % (AUTO) 72.4 % (42-75); PLATELET COUNT 282 X10'3 (140-440); RED BLOOD COUNT 2.86 X10'6 (4.20-5.60); WHITE BLOOD COUNT 7.7 X10'3 (4.5-11.0)
[2022-10-15 02:31] LABS: ANION GAP 7 (8-16); BLOOD UREA NITROGEN 13 MG/DL (7-18); BUN/CREATININE RATIO 28.3 (6.6-38.0); CALCIUM 8.4 MG/DL (8.5-10.1); CHLORIDE 105 MMOL/L (99-107); CREATININE 0.46 MG/DL (0.40-0.90); GLUCOSE 110 MG/DL (70-104); MAGNESIUM 2.1 MG/DL (1.5-2.4); POTASSIUM 3.8 MMOL/L (3.5-5.1); SODIUM 140 MMOL/L (135-145); eGFR > 90 ML/MIN
[2022-10-15] MEDS: ipratropium/albuterol 3ml nebule NEB SCH ×6 (03:13→23:07)
[2022-10-15 03:32] LABS: NUCLEATED RED BLOOD CELLS 2 /100WBC (0-0); TOTAL CELLS COUNTED 100
[2022-10-15 03:33] LABS: ANISOCYTOSIS 1+; PLATELET ESTIMATE NORMAL; SMUDGE CELLS 2+
[2022-10-15 03:34] LABS: POIKILOCYTOSIS FEW; POLYCHROMASIA FEW; TEAR DROP CELLS FEW
[2022-10-15 03:37] LABS: ABG BASE EXCESS 2.1 mmol/L (-2.0-2.0); ABG HCO3 26.8 mmol/L (22.0-26.0); ABG OXYGEN SATURATION 91.9 % (94-97); ABG PCO2 (T) 41.2 mmHg (32.0-45.0); ABG PO2 (T) 62.6 mmHg (75.0-100.0); ALLEN'S TEST POSITIVE; FCOHb 0.5 % (0.0-3.9); FMetHb 0.4 % (0.0-1.5); FO2Hb 91.1 % (94-97); PATIENT TEMPERATURE 36.4; PEEP 5 cm H2O; RESPIRATORY RATE 16 b/min; TIDAL VOLUME 450 mL; TOTAL HEMOGLOBIN 10.4 G/dl (12.0-16.0)
[2022-10-15] MEDS: propofol 1000mg/100ml bottle 100 ML IV SCH (04:23)
[2022-10-15] MEDS: NORepinephrine 8mg/ 250ml NS 250 ML IV SCH (06:53)
[2022-10-15] MEDS: ERTUGLIFLOZIN PIDOLATE 15 MG OGT SCH (06:59)
[2022-10-15] MEDS: LACTOSE-REDUCED FOOD (ENSURE PLUS-HP) VANILLA 237 ML BOTTLE PO SCH ×3 (07:00→15:43)
[2022-10-15] MEDS: budesonide 0.5mg/2ml UD nebule IH SCH ×2 (07:14→19:52)
[2022-10-15] MEDS: cefepime 2g/NS 100ml ADVANTAGE 100 ML IV SCH ×2 (08:01→20:08)
[2022-10-15] MEDS: ROFLUMILAST 500 MCG OGT SCH (08:03)
[2022-10-15] MEDS: famotidine/PF 10 mg/ml inj IV SCH ×2 (08:03→20:08)
[2022-10-15] MEDS: loratadine 10mg tablet OGT SCH (08:04)
[2022-10-15] MEDS: aspirin 81mg tab.chew OGT SCH (08:04)
[2022-10-15] MEDS: topiramate 25mg tablet OGT SCH ×2 (08:04→19:58)
[2022-10-15] MEDS: duloxetine 30mg CAPSULE.DR OGT SCH ×2 (08:05→20:01)
[2022-10-15] MEDS: cyclobenzaprine 10mg tablet OGT SCH ×3 (08:05→20:01)
[2022-10-15] MEDS: valacyclovir 500mg tablet OGT SCH (08:06)
[2022-10-15] MEDS: allopurinol 100mg tablet OGT SCH (08:06)
[2022-10-15] MEDS: amiodarone 200mg tablet OGT SCH ×2 (08:06→19:58)
[2022-10-15] MEDS: predniSONE 20 mg tablet OGT SCH (08:06)
[2022-10-15] MEDS: clotrimazole topical cream 15gm tube TP SCH ×2 (08:07→20:09)
[2022-10-15] MEDS: normal saline 1000ml 1,000 ML IV SCH (08:07)
[2022-10-15] MEDS: dextrose 5%-normal saline 1,000 ML IV SCH ×2 (09:12→22:00)
[2022-10-15] MEDS: vancomycin/NS 1 GM ADD-VANTAGE 250 ML IV SCH ×2 (11:20→22:00)
--- NOTE | 2022-10-15 11:29 | NUR ---
Reassessment: Pt remains intubated, currently not receiving TF at this time pending to go to OR today for trach and G-tube placement. Pt started on D5NS at 75 mL/hr today which provides 306 kcal/day. Per RN Propofol running at 8 mcg/kg/min which provides 113 kcal/day. Per EMR no BM since 10/08 while receiving Senna-S HS, d/w multidisciplinary team at [facility]. Pt to receive PRN bowel care post-op per set up and charger. Will continue to follow closely. Recommendations: 1. Once TF per MD; continuous Vital HP via G-tube with 65 ml/hr goal to provide 1560 ml volume/day, 1560 kcal, 1304 ml water, and 136 g protein 2. Once TF; monitor Propofol rate and adjust TF recs as appropriate 3. Once TF; additional 100 mL water flush Q4H; monitor serum Na 4. Once TF; PALB q Wednesday/; daily scaled wts 5. Routine bowel care; utilize bowel regimen given constipation Addendum: 10/15/22 at [address] Amended: Links added.
[2022-10-15] MEDS ORDERED: MIDAZolam 1 MG/ML 5ML VIAL ONE (13:15)
[2022-10-15] MEDS ORDERED: sevoflurane 250ml liquid IH ONE (13:15)
[2022-10-15] MEDS ORDERED: fentaNYL /PF 50mcg/ml 5ml ampule ONE (13:15)
[2022-10-15] MEDS ORDERED: NORepinephrine 8 MG in NS 250 ML BAG (32 mcg/ml) IV ONE (13:15)
[2022-10-15] MEDS ORDERED: rocuronium 10mg/ml inj IV ONE (14:54)
[2022-10-15] MEDS: insulin regular, human U-100 3ml vial - multi-dose SQ SCH (15:52)
[2022-10-15 16:36] LABS: ABG BASE EXCESS 1.7 mmol/L (-2.0-2.0); ABG HCO3 26.5 mmol/L (22.0-26.0); ABG OXYGEN SATURATION 94.7 % (94-97); ABG PCO2 (T) 42.9 mmHg (32.0-45.0); ABG PO2 (T) 75.2 mmHg (75.0-100.0); ALLEN'S TEST POSITIVE; FCOHb 0.4 % (0.0-3.9); FMetHb 0.3 % (0.0-1.5); PEEP 5 cm H2O; RESPIRATORY RATE 16 b/min; TIDAL VOLUME 450 mL; TOTAL HEMOGLOBIN 9.9 G/dl (12.0-16.0)
--- NOTE | 2022-10-15 17:47 | NUR ---
Neuro:AAOx3. continues to wean sedation Cardiac:Narinder Rangel held for procedure today Resp:Trach performed in OR today. Vent settings 450/50/16/5 GI/:PEG performed today. Currently set to gravity drainage. To remain NPO till tomorrow per provider. Rosales intact with good UOP. No BM today. Bowel meds on DEC to be given tonight and tomorrow per provider. Skin:Trach incision clean. PEG incision covered in dressing. CDI.
[2022-10-15] MEDS: primidone 50mg tablet OGT SCH (20:01)
[2022-10-15] MEDS: sennosides/docusate sodium tablet OGT SCH (20:01)
[2022-10-15] MEDS: insulin glargine (Lantus) pen - multi-dose SQ SCH (21:00)
--- NOTE | 2022-10-15 22:05 | NUR ---
Spoke to Dr. Weir regarding pt's BG's. Pt on D5NS d/t hypoglycemia this morning. Orders to give 6units lantus per instead of ordered 12units.
[2022-10-16] VITALS (34 sets, daily range): BP systolic 79–119; BP diastolic 49–71
[2022-10-16] MEDS: ipratropium/albuterol 3ml nebule NEB SCH ×6 (02:35→23:04)
[2022-10-16 03:15] LABS: ABG BASE EXCESS 3.2 mmol/L (-2.0-2.0); ABG HCO3 26.9 mmol/L (22.0-26.0); ABG OXYGEN SATURATION 96.9 % (94-97); ABG PCO2 (T) 36.5 mmHg (32.0-45.0); ABG PO2 (T) 84.4 mmHg (75.0-100.0); ALLEN'S TEST POSITIVE; FCOHb 0.3 % (0.0-3.9); FMetHb 0.2 % (0.0-1.5); FO2Hb 96.4 % (94-97); PATIENT TEMPERATURE 36.3; PEEP 5 cm H2O; RESPIRATORY RATE 16 b/min; TIDAL VOLUME 450 mL; TOTAL HEMOGLOBIN 10.3 G/dl (12.0-16.0)
[2022-10-16 03:34] LABS: BASOPHILS % (AUTO) 0.3 % (0-1); EOSINOPHILS % (AUTO) 0.3 % (0-6); HEMATOCRIT 25.4 % (35.0-45.0); HEMOGLOBIN 8.2 g/dl (12.0-16.0); LYMPHOCYTES % (AUTO) 13.8 % (21-51); MEAN CORPUSCULAR HEMOGLOBIN 31.4 PG (27.0-31.0); MEAN CORPUSCULAR HGB CONC 32.2 g/dL (33.0-36.5); MEAN CORPUSCULAR VOLUME 97.6 FL (78-98); MEAN PLATELET VOLUME 7.6 FL (7.4-10.4); MONOCYTES # (AUTO) 0.5 X10'3 (0-0.9); MONOCYTES % (AUTO) 6.3 % (2-12); NEUTROPHILS # (AUTO) 5.9 X10'3 (1.8-7.7); NEUTROPHILS % (AUTO) 79.3 % (42-75); PLATELET COUNT 241 X10'3 (140-440); RED CELL DISTRIBUTION WIDTH 18.8 % (11.5-14.5); WHITE BLOOD COUNT 7.5 X10'3 (4.5-11.0)
[2022-10-16 03:49] LABS: ALBUMIN 1.8 G/DL (3.4-5.0); ANION GAP 6 (8-16); BLOOD UREA NITROGEN 11 MG/DL (7-18); BUN/CREATININE RATIO 26.2 (6.6-38.0); CALCIUM 7.5 MG/DL (8.5-10.1); CHLORIDE 110 MMOL/L (99-107); CREATININE 0.42 MG/DL (0.40-0.90); GLUCOSE 94 MG/DL (70-104); MAGNESIUM 2.1 MG/DL (1.5-2.4); POTASSIUM 3.2 MMOL/L (3.5-5.1); SODIUM 142 MMOL/L (135-145); TOTAL CARBON DIOXIDE 26.1 MMOL/L (24-32); eGFR > 90 ML/MIN
[2022-10-16] MEDS: dexmedetomidin/NS 400mcg/100ml 100 ML IV SCH ×2 (04:14→16:05)
[2022-10-16 04:24] LABS: TRIGLYCERIDES 217 MG/DL (20-135)
--- NOTE | 2022-10-16 04:34 | NUR ---
Spoke to Dr. Weir regarding pt's heart rate consistently afib in the 130s. Pt has not received po amiodarone dose d/t NPO statusx2 days. Order to give amio bolus at this time.
[2022-10-16] MEDS ORDERED: amiodarone 150mg/dext, iso-os 100 ML IV ONE (04:35)
[2022-10-16] MEDS: potassium Cl 20mEq/100mL bag 100 ML IV PRN (04:45)
[2022-10-16] MEDS: budesonide 0.5mg/2ml UD nebule IH SCH ×2 (07:15→19:11)
[2022-10-16] MEDS: famotidine/PF 10 mg/ml inj IV SCH ×2 (08:00→20:24)
[2022-10-16] MEDS: cyclobenzaprine 10mg tablet OGT SCH ×2 (08:00→20:28)
[2022-10-16] MEDS: loratadine 10mg tablet OGT SCH (08:00)
[2022-10-16] MEDS: apixaban 2.5mg tablet OGT SCH ×2 (08:00→20:26)
[2022-10-16] MEDS: cefepime 2g/NS 100ml ADVANTAGE 100 ML IV SCH ×2 (08:00→20:27)
[2022-10-16] MEDS: amiodarone 200mg tablet OGT SCH ×2 (08:00→20:24)
[2022-10-16] MEDS: midodrine 5mg tablet OGT SCH ×3 (08:00→23:39)
[2022-10-16] MEDS: topiramate 25mg tablet OGT SCH ×2 (08:00→20:24)
[2022-10-16] MEDS: clotrimazole topical cream 15gm tube TP SCH ×2 (08:00→20:27)
[2022-10-16] MEDS: allopurinol 100mg tablet OGT SCH (08:00)
[2022-10-16] MEDS: duloxetine 30mg CAPSULE.DR OGT SCH ×2 (08:00→20:26)
[2022-10-16] MEDS: ERTUGLIFLOZIN PIDOLATE 15 MG OGT SCH (08:00)
[2022-10-16] MEDS: aspirin 81mg tab.chew OGT SCH (08:00)
[2022-10-16] MEDS: ROFLUMILAST 500 MCG OGT SCH (08:00)
[2022-10-16] MEDS: predniSONE 20 mg tablet OGT SCH (08:30)
--- NOTE | 2022-10-16 09:00 | NUR ---
Patient in room CICU 2007. I have received report from Maryjane STAUFFER and had the opportunity to ask questions and assume patient care. Family to see pt during rounds. PT to see pt and sat pt on bedside.
[2022-10-16] MEDS ORDERED: risperiDONE 2mg tablet PO ONE (10:48)
[2022-10-16] MEDS: dextrose 5%-normal saline 1,000 ML IV SCH (11:20)
--- NOTE | 2022-10-16 11:22 | NUR ---
TF consult: Pt to begin TF via G-tube today per MD. Noted Propofol has been turned off and likely not to be resumed per bedside RN. D5NS to be discontinued with initiation of TF per MD. D/w clinical pharmacist recommendation to discontinue Ensure Plus HP TID as pt NPO and intubated. Pt still with no BM since 10/08 though bowel care unable to be administered 10/15 d/t NPO status. RN states will admin routine and PRN bowel care today. Will continue to follow closely. Recommendations: 1. Continuous Vital HP via G-tube with 65 ml/hr goal to provide 1560 ml volume/day, 1560 kcal, 1304 ml water, and 136 g protein 2. Additional 100 mL water flush Q4H; monitor serum Na 3. PALB q Wednesday/ 4. Daily scaled wts 5. Routine bowel care; utilize bowel regimen given constipation Addendum: 10/16/22 at [address] Amended: Links added.
[2022-10-16] MEDS: vancomycin/NS 1 GM ADD-VANTAGE 250 ML IV SCH ×2 (13:22→22:19)
[2022-10-16] MEDS: DOPamine 400mg/D5W 250ml 250 ML IV SCH ×2 (13:22→23:38)
[2022-10-16] MEDS: insulin regular, human U-100 3ml vial - multi-dose SQ SCH ×2 (14:21→20:33)
--- NOTE | 2022-10-16 15:00 | NUR ---
Behavior note Pt rests comfortably, wakes when care provided. At times shes appropriate and suddenly becomes agitated. Continues to try to pull line/tubes out. She grabbed the gravity drain bag, which I'd disconnected, and pulled it to the side of the bed... so she remains restrained.
--- NOTE | 2022-10-16 18:21 | NUR ---
Problems reprioritized. Patient report given, questions answered & plan of care reviewed with Maryjane STAUFFER.
[2022-10-16] MEDS: primidone 50mg tablet OGT SCH (20:25)
[2022-10-16] MEDS: risperiDONE 2mg tablet OGT SCH (20:25)
[2022-10-16] MEDS: sennosides/docusate sodium tablet OGT SCH (20:25)
[2022-10-16] MEDS: insulin glargine (Lantus) pen - multi-dose SQ SCH (20:35)
[2022-10-16] MEDS: fentaNYL/NS/PF 2,500 mcg/250mL 250 ML IV PRN (23:39)
[2022-10-17] VITALS (35 sets, daily range): BP systolic 86–118; BP diastolic 44–73
[2022-10-17] MEDS: dextrose 5%-normal saline 1,000 ML IV SCH (00:40)
[2022-10-17] MEDS ORDERED: FENTANYL 1000MCG/NS 100 ML BAG /PF IV PRN (02:15)
[2022-10-17] MEDS: insulin regular, human U-100 3ml vial - multi-dose SQ SCH ×4 (02:19→20:42)
[2022-10-17] MEDS: ipratropium/albuterol 3ml nebule NEB SCH ×6 (02:39→22:56)
[2022-10-17] MEDS: dexmedetomidin/NS 400mcg/100ml 100 ML IV SCH ×3 (02:41→20:32)
[2022-10-17 03:20] LABS: BASOPHILS % (AUTO) 0.4 % (0-1); EOSINOPHILS % (AUTO) 0.1 % (0-6); HEMATOCRIT 27.6 % (35.0-45.0); HEMOGLOBIN 8.8 g/dl (12.0-16.0); LYMPHOCYTES # (AUTO) 0.9 X10'3 (1.1-4.8); LYMPHOCYTES % (AUTO) 13.4 % (21-51); MEAN CORPUSCULAR HEMOGLOBIN 31.1 PG (27.0-31.0); MEAN CORPUSCULAR HGB CONC 31.8 g/dL (33.0-36.5); MEAN CORPUSCULAR VOLUME 97.7 FL (78-98); MEAN PLATELET VOLUME 7.4 FL (7.4-10.4); MONOCYTES # (AUTO) 0.3 X10'3 (0-0.9); MONOCYTES % (AUTO) 4.1 % (2-12); NEUTROPHILS # (AUTO) 5.6 X10'3 (1.8-7.7); PLATELET COUNT 250 X10'3 (140-440); RED BLOOD COUNT 2.83 X10'6 (4.20-5.60); RED CELL DISTRIBUTION WIDTH 18.6 % (11.5-14.5); WHITE BLOOD COUNT 6.8 X10'3 (4.5-11.0)
[2022-10-17 04:00] LABS: ALBUMIN 2.1 G/DL (3.4-5.0); ANION GAP 10 (8-16); BLOOD UREA NITROGEN 15 MG/DL (7-18); BUN/CREATININE RATIO 32.6 (6.6-38.0); CALCIUM 8.2 MG/DL (8.5-10.1); CHLORIDE 104 MMOL/L (99-107); CREATININE 0.46 MG/DL (0.40-0.90); GLUCOSE 195 MG/DL (70-104); MAGNESIUM 2.1 MG/DL (1.5-2.4); POTASSIUM 3.4 MMOL/L (3.5-5.1); SODIUM 138 MMOL/L (135-145); TOTAL CARBON DIOXIDE 24.4 MMOL/L (24-32); eGFR > 90 ML/MIN
[2022-10-17] MEDS: POTASSIUM BICARB 20meq eff tab 20 MEQ TABLET.EFF OGT PRN ×2 (05:59→12:38)
[2022-10-17] MEDS: budesonide 0.5mg/2ml UD nebule IH SCH ×2 (07:07→18:45)
[2022-10-17] MEDS: cefepime 2g/NS 100ml ADVANTAGE 100 ML IV SCH ×2 (07:40→20:30)
[2022-10-17] MEDS: aspirin 81mg tab.chew OGT SCH (07:46)
[2022-10-17] MEDS: amiodarone 200mg tablet OGT SCH ×2 (07:46→20:28)
[2022-10-17] MEDS: cyclobenzaprine 10mg tablet OGT SCH ×3 (07:46→20:29)
[2022-10-17] MEDS: risperiDONE 2mg tablet OGT SCH ×2 (07:46→20:29)
[2022-10-17] MEDS: predniSONE 20 mg tablet OGT SCH (07:47)
[2022-10-17] MEDS: midodrine 5mg tablet OGT SCH ×3 (07:47→23:20)
[2022-10-17] MEDS: loratadine 10mg tablet OGT SCH (07:47)
[2022-10-17] MEDS: allopurinol 100mg tablet OGT SCH (07:48)
[2022-10-17] MEDS: duloxetine 30mg CAPSULE.DR OGT SCH (07:48)
[2022-10-17] MEDS: topiramate 25mg tablet OGT SCH ×2 (07:48→20:29)
[2022-10-17] MEDS: apixaban 2.5mg tablet OGT SCH ×2 (07:48→20:28)
[2022-10-17] MEDS: famotidine/PF 10 mg/ml inj IV SCH ×2 (07:49→20:28)
[2022-10-17] MEDS: clotrimazole topical cream 15gm tube TP SCH ×2 (07:49→20:30)
[2022-10-17] MEDS: ERTUGLIFLOZIN PIDOLATE 15 MG OGT SCH (07:49)
[2022-10-17] MEDS: ROFLUMILAST 500 MCG OGT SCH (07:52)
[2022-10-17] MEDS: normal saline 1000ml 1,000 ML IV SCH (09:00)
[2022-10-17] MEDS: morphine 2 MG/ML inj. syringe IV PRN (09:27)
[2022-10-17] MEDS: DOPamine 400mg/D5W 250ml 250 ML IV SCH (09:27)
[2022-10-17] MEDS ORDERED: VANCOMYCIN LEVEL IV ONE (09:30)
[2022-10-17] MEDS: vancomycin/NS 1 GM ADD-VANTAGE 250 ML IV SCH ×2 (10:25→21:56)
[2022-10-17] MEDS: NORepinephrine 8mg/ 250ml NS 250 ML IV SCH (11:37)
--- NOTE | 2022-10-17 18:05 | NUR ---
Problems reprioritized. Patient report given, questions answered & plan of care reviewed with Maryjane STAUFFER.
[2022-10-17] MEDS: sennosides/docusate sodium tablet OGT SCH (20:28)
[2022-10-17] MEDS: primidone 50mg tablet OGT SCH (20:29)
[2022-10-17] MEDS: insulin glargine (Lantus) pen - multi-dose SQ SCH (20:43)
[2022-10-18] VITALS (34 sets, daily range): BP systolic 81–117; BP diastolic 47–77
[2022-10-18] MEDS: insulin regular, human U-100 3ml vial - multi-dose SQ SCH ×4 (02:11→21:35)
[2022-10-18] MEDS: ipratropium/albuterol 3ml nebule NEB SCH ×6 (02:37→22:59)
[2022-10-18 02:44] LABS: BASOPHILS % (AUTO) 0.3 % (0-1); EOSINOPHILS % (AUTO) 0.6 % (0-6); HEMATOCRIT 26.4 % (35.0-45.0); HEMOGLOBIN 8.2 g/dl (12.0-16.0); LYMPHOCYTES % (AUTO) 17.6 % (21-51); MEAN CORPUSCULAR HEMOGLOBIN 30.4 PG (27.0-31.0); MEAN CORPUSCULAR HGB CONC 31.1 g/dL (33.0-36.5); MEAN CORPUSCULAR VOLUME 97.7 FL (78-98); MEAN PLATELET VOLUME 7.5 FL (7.4-10.4); MONOCYTES # (AUTO) 0.2 X10'3 (0-0.9); MONOCYTES % (AUTO) 4.3 % (2-12); NEUTROPHILS # (AUTO) 4.4 X10'3 (1.8-7.7); NEUTROPHILS % (AUTO) 77.2 % (42-75); PLATELET COUNT 226 X10'3 (140-440); WHITE BLOOD COUNT 5.7 X10'3 (4.5-11.0)
[2022-10-18 03:09] LABS: GLUCOSE 141 MG/DL (70-104); POTASSIUM 3.8 MMOL/L (3.5-5.1); SODIUM 142 MMOL/L (135-145)
[2022-10-18 03:10] LABS: ALBUMIN 1.9 G/DL (3.4-5.0); ANION GAP 8 (8-16); BLOOD UREA NITROGEN 18 MG/DL (7-18); BUN/CREATININE RATIO 48.6 (6.6-38.0); CALCIUM 8.4 MG/DL (8.5-10.1); CHLORIDE 108 MMOL/L (99-107); CREATININE 0.37 MG/DL (0.40-0.90); MAGNESIUM 2.1 MG/DL (1.5-2.4); eGFR > 90 ML/MIN
[2022-10-18 04:02] LABS: ANISOCYTOSIS 2+; MICROCYTOSIS 1+; PLATELET ESTIMATE NORMAL
[2022-10-18 04:03] LABS: HYPOCHROMASIA 1+; STOMATOCYTES 1+
[2022-10-18] MEDS: morphine 2 MG/ML inj. syringe IV PRN ×2 (04:41→10:47)
--- NOTE | 2022-10-18 06:00 | NUR ---
Patient in room CICU 2007. I have received report from Maryjane STAUFFER and had the opportunity to ask questions and assume patient care.
[2022-10-18] MEDS: NORepinephrine 8mg/ 250ml NS 250 ML IV SCH ×2 (06:43→07:40)
[2022-10-18] MEDS: budesonide 0.5mg/2ml UD nebule IH SCH ×2 (06:54→18:46)
[2022-10-18] MEDS: ERTUGLIFLOZIN PIDOLATE 15 MG OGT SCH (07:21)
[2022-10-18] MEDS: cefepime 2g/NS 100ml ADVANTAGE 100 ML IV SCH ×2 (07:22→21:02)
[2022-10-18] MEDS: famotidine/PF 10 mg/ml inj IV SCH ×2 (07:23→21:02)
[2022-10-18] MEDS: allopurinol 100mg tablet OGT SCH (07:23)
[2022-10-18] MEDS: cyclobenzaprine 10mg tablet OGT SCH ×3 (07:23→21:03)
[2022-10-18] MEDS: topiramate 25mg tablet OGT SCH ×2 (07:23→21:04)
[2022-10-18] MEDS: loratadine 10mg tablet OGT SCH (07:24)
[2022-10-18] MEDS: risperiDONE 2mg tablet OGT SCH ×2 (07:24→21:03)
[2022-10-18] MEDS: apixaban 2.5mg tablet OGT SCH ×2 (07:24→21:04)
[2022-10-18] MEDS: amiodarone 200mg tablet OGT SCH ×2 (07:24→21:03)
[2022-10-18] MEDS: aspirin 81mg tab.chew OGT SCH (07:24)
[2022-10-18] MEDS: midodrine 5mg tablet OGT SCH ×2 (07:24→16:28)
[2022-10-18] MEDS: clotrimazole topical cream 15gm tube TP SCH ×2 (07:25→20:00)
[2022-10-18] MEDS: ROFLUMILAST 500 MCG OGT SCH (07:27)
[2022-10-18] MEDS: fluoxetine 20mg/5ml UD cup PO SCH (07:27)
[2022-10-18] MEDS: predniSONE 20 mg tablet OGT SCH (07:30)
[2022-10-18] MEDS: vancomycin/NS 1 GM ADD-VANTAGE 250 ML IV SCH (09:50)
[2022-10-18] MEDS: dexmedetomidine inj. 400 MCG in normal saline 100ml IV soln 96 ML IV SCH (10:41)
--- NOTE | 2022-10-18 18:32 | NUR ---
Problems reprioritized. Patient report given, questions answered & plan of care reviewed with Matteo STAUFFER.
--- NOTE | 2022-10-18 18:33 | NUR ---
Patient in room CICU 2008. I have received report from Herlinda STAUFFER and had the opportunity to ask questions and assume patient care.
[2022-10-18] MEDS: HYDROcodone/acetaminophen 10/325mg tab PO PRN (18:43)
[2022-10-18] MEDS: sennosides/docusate sodium tablet OGT SCH (21:03)
[2022-10-18] MEDS: primidone 50mg tablet OGT SCH (21:04)
[2022-10-18] MEDS: insulin glargine (Lantus) pen - multi-dose SQ SCH (21:36)
[2022-10-19] VITALS (33 sets, daily range): BP systolic 72–117; BP diastolic 42–67
[2022-10-19] MEDS: midodrine 5mg tablet OGT SCH ×3 (00:15→15:05)
[2022-10-19] MEDS: dexmedetomidine inj. 400 MCG in normal saline 100ml IV soln 96 ML IV SCH ×3 (01:09→16:50)
[2022-10-19] MEDS: ipratropium/albuterol 3ml nebule NEB SCH ×6 (02:38→23:08)
[2022-10-19 03:01] LABS: BASOPHILS % (AUTO) 0.2 % (0-1); EOSINOPHILS # (AUTO) 0.1 X10'3 (0-0.9); HEMATOCRIT 27.1 % (35.0-45.0); HEMOGLOBIN 8.5 g/dl (12.0-16.0); LYMPHOCYTES # (AUTO) 1.1 X10'3 (1.1-4.8); MEAN CORPUSCULAR HEMOGLOBIN 30.6 PG (27.0-31.0); MEAN CORPUSCULAR HGB CONC 31.3 g/dL (33.0-36.5); MEAN CORPUSCULAR VOLUME 97.9 FL (78-98); MEAN PLATELET VOLUME 7.6 FL (7.4-10.4); MONOCYTES # (AUTO) 0.3 X10'3 (0-0.9); MONOCYTES % (AUTO) 4.4 % (2-12); NEUTROPHILS # (AUTO) 5.3 X10'3 (1.8-7.7); NEUTROPHILS % (AUTO) 78.4 % (42-75); PLATELET COUNT 218 X10'3 (140-440); RED BLOOD COUNT 2.77 X10'6 (4.20-5.60); RED CELL DISTRIBUTION WIDTH 18.9 % (11.5-14.5); WHITE BLOOD COUNT 6.7 X10'3 (4.5-11.0)
[2022-10-19 03:19] LABS: ANION GAP 9 (8-16); BLOOD UREA NITROGEN 20 MG/DL (7-18); BUN/CREATININE RATIO 54.1 (6.6-38.0); CALCIUM 8.7 MG/DL (8.5-10.1); CHLORIDE 107 MMOL/L (99-107); CREATININE 0.37 MG/DL (0.40-0.90); GLUCOSE 91 MG/DL (70-104); POTASSIUM 3.4 MMOL/L (3.5-5.1); PREALBUMIN 13.9 MG/DL (19-36); SODIUM 141 MMOL/L (135-145); TOTAL CARBON DIOXIDE 25.4 MMOL/L (24-32); TRIGLYCERIDES 120 MG/DL (20-135); eGFR > 90 ML/MIN
--- NOTE | 2022-10-19 06:57 | NUR ---
Patient in room CICU 2008. I have received report from Liudmila STAUFFER and had the opportunity to ask questions and assume patient care.
[2022-10-19] MEDS: cefepime 2g/NS 100ml ADVANTAGE 100 ML IV SCH ×2 (07:11→20:47)
[2022-10-19] MEDS: ROFLUMILAST 500 MCG OGT SCH (07:12)
[2022-10-19] MEDS: clotrimazole topical cream 15gm tube TP SCH ×2 (07:13→20:34)
[2022-10-19] MEDS: famotidine/PF 10 mg/ml inj IV SCH ×2 (07:13→20:32)
[2022-10-19] MEDS: loratadine 10mg tablet OGT SCH (07:13)
[2022-10-19] MEDS: aspirin 81mg tab.chew OGT SCH (07:13)
[2022-10-19] MEDS: risperiDONE 2mg tablet OGT SCH ×2 (07:14→20:32)
[2022-10-19] MEDS: amiodarone 200mg tablet OGT SCH ×2 (07:14→20:34)
[2022-10-19] MEDS: apixaban 2.5mg tablet OGT SCH ×2 (07:14→20:33)
[2022-10-19] MEDS: allopurinol 100mg tablet OGT SCH (07:14)
[2022-10-19] MEDS: cyclobenzaprine 10mg tablet OGT SCH ×3 (07:14→20:32)
[2022-10-19] MEDS: topiramate 25mg tablet OGT SCH ×2 (07:15→20:33)
[2022-10-19] MEDS: ERTUGLIFLOZIN PIDOLATE 15 MG OGT SCH (07:17)
[2022-10-19] MEDS: fluoxetine 20mg/5ml UD cup PO SCH (07:18)
[2022-10-19] MEDS: predniSONE 20 mg tablet OGT SCH (07:30)
[2022-10-19] MEDS: budesonide 0.5mg/2ml UD nebule IH SCH ×2 (07:53→19:19)
[2022-10-19] MEDS: potassium Cl 20mEq/100mL bag 100 ML IV PRN ×2 (07:55→09:36)
[2022-10-19] MEDS: insulin regular, human U-100 3ml vial - multi-dose SQ SCH ×3 (08:21→20:53)
[2022-10-19] MEDS ORDERED: COSYNTROPIN IV ONE (08:30)
[2022-10-19] MEDS ORDERED: NORMAL SALINE IV ONE (08:30)
[2022-10-19] MEDS ORDERED: cosyntropin 250mcg inj IV ONE (08:35)
[2022-10-19] MEDS: NORepinephrine 8mg/ 250ml NS 250 ML IV SCH ×2 (08:41→23:48)
[2022-10-19] MEDS: normal saline 1000ml 1,000 ML IV SCH (09:00)
[2022-10-19] MEDS ORDERED: hydrocortisone sod succ/PF 100mg/2ml inj. IV ONE ×2 (11:26→16:00)
[2022-10-19] MEDS: fludrocortisone acetate 0.1mg tablet PO SCH (12:04)
--- NOTE | 2022-10-19 18:06 | NUR ---
Problems reprioritized. Patient report given, questions answered & plan of care reviewed with Liudmila STAUFFER.
[2022-10-19] MEDS: HYDROcodone/acetaminophen 10/325mg tab PO PRN (18:41)
[2022-10-19] MEDS: primidone 50mg tablet OGT SCH (20:33)
[2022-10-19] MEDS: sennosides/docusate sodium tablet OGT SCH (20:34)
[2022-10-19] MEDS: insulin glargine (Lantus) pen - multi-dose SQ SCH (20:54)
[2022-10-19] MEDS: hydrocortisone sod succ/PF 100mg/2ml inj. IV SCH (22:13)
[2022-10-20] VITALS (35 sets, daily range): BP systolic 79–117; BP diastolic 40–81
[2022-10-20] MEDS: midodrine 5mg tablet OGT SCH ×3 (01:03→16:01)
[2022-10-20] MEDS: hydrocortisone sod succ/PF 100mg/2ml inj. IV SCH ×3 (02:00→16:00)
[2022-10-20 02:51] LABS: BASOPHILS % (AUTO) 0.2 % (0-1); EOSINOPHILS % (AUTO) 0.1 % (0-6); HEMOGLOBIN 7.9 g/dl (12.0-16.0); LYMPHOCYTES # (AUTO) 0.7 X10'3 (1.1-4.8); LYMPHOCYTES % (AUTO) 11.5 % (21-51); MEAN CORPUSCULAR HEMOGLOBIN 30.6 PG (27.0-31.0); MEAN CORPUSCULAR HGB CONC 31.4 g/dL (33.0-36.5); MEAN CORPUSCULAR VOLUME 97.5 FL (78-98); MEAN PLATELET VOLUME 7.5 FL (7.4-10.4); MONOCYTES # (AUTO) 0.2 X10'3 (0-0.9); MONOCYTES % (AUTO) 3.6 % (2-12); NEUTROPHILS % (AUTO) 84.6 % (42-75); PLATELET COUNT 214 X10'3 (140-440); RED BLOOD COUNT 2.57 X10'6 (4.20-5.60); RED CELL DISTRIBUTION WIDTH 18.9 % (11.5-14.5); WHITE BLOOD COUNT 5.9 X10'3 (4.5-11.0)
[2022-10-20] MEDS: ipratropium/albuterol 3ml nebule NEB SCH ×6 (03:00→23:00)
[2022-10-20 03:09] LABS: ALBUMIN 1.9 G/DL (3.4-5.0); ANION GAP 7 (8-16); BLOOD UREA NITROGEN 22 MG/DL (7-18); BUN/CREATININE RATIO 57.9 (6.6-38.0); CALCIUM 8.5 MG/DL (8.5-10.1); CHLORIDE 107 MMOL/L (99-107); CREATININE 0.38 MG/DL (0.40-0.90); GLUCOSE 105 MG/DL (70-104); POTASSIUM 3.2 MMOL/L (3.5-5.1); SODIUM 138 MMOL/L (135-145); TOTAL CARBON DIOXIDE 23.8 MMOL/L (24-32); eGFR > 90 ML/MIN
[2022-10-20 03:35] LABS: ANISOCYTOSIS 2+; PLATELET ESTIMATE NORMAL
[2022-10-20 03:38] LABS: POLYCHROMASIA FEW
[2022-10-20 03:39] LABS: HYPOCHROMASIA 1+
[2022-10-20] MEDS: potassium Cl 20mEq/100mL bag 100 ML IV PRN ×2 (05:04→06:39)
[2022-10-20] MEDS: HYDROcodone/acetaminophen 10/325mg tab PO PRN ×3 (05:16→18:56)
--- NOTE | 2022-10-20 06:00 | NUR ---
Patient in room CICU 2008. I have received report from Liudmila STAUFFER and had the opportunity to ask questions and assume patient care.
[2022-10-20] MEDS: budesonide 0.5mg/2ml UD nebule IH SCH ×2 (07:39→19:08)
[2022-10-20] MEDS: fluoxetine 20mg/5ml UD cup PO SCH (08:00)
[2022-10-20] MEDS: cefepime 2g/NS 100ml ADVANTAGE 100 ML IV SCH (09:00)
[2022-10-20] MEDS: dexmedetomidine inj. 400 MCG in normal saline 100ml IV soln 96 ML IV SCH ×2 (09:01→18:40)
[2022-10-20] MEDS: risperiDONE 2mg tablet OGT SCH ×2 (09:02→20:24)
[2022-10-20] MEDS: aspirin 81mg tab.chew OGT SCH (09:02)
[2022-10-20] MEDS: famotidine/PF 10 mg/ml inj IV SCH ×2 (09:02→20:20)
[2022-10-20] MEDS: loratadine 10mg tablet OGT SCH (09:03)
[2022-10-20] MEDS: cyclobenzaprine 10mg tablet OGT SCH ×3 (09:03→20:23)
[2022-10-20] MEDS: amiodarone 200mg tablet OGT SCH ×2 (09:03→20:22)
[2022-10-20] MEDS: apixaban 2.5mg tablet OGT SCH ×2 (09:03→20:24)
[2022-10-20] MEDS: predniSONE 20 mg tablet OGT SCH (09:03)
[2022-10-20] MEDS: clotrimazole topical cream 15gm tube TP SCH ×2 (09:04→20:24)
[2022-10-20] MEDS: topiramate 25mg tablet OGT SCH ×2 (09:04→20:23)
[2022-10-20] MEDS: allopurinol 100mg tablet OGT SCH (09:04)
[2022-10-20] MEDS: ERTUGLIFLOZIN PIDOLATE 15 MG OGT SCH (09:12)
[2022-10-20] MEDS: ROFLUMILAST 500 MCG OGT SCH (09:12)
[2022-10-20] MEDS: fludrocortisone acetate 0.1mg tablet PO SCH (09:13)
[2022-10-20] MEDS ORDERED: fluoxetine 20mg/5ml UD cup PO SCH (09:45)
[2022-10-20] MEDS: insulin regular, human U-100 3ml vial - multi-dose SQ SCH ×3 (10:06→20:34)
--- NOTE | 2022-10-20 11:08 | NUR ---
Reassessment: Pt remains intubated and tolerating TF at goal rate with GRV WNL. Per EMR pt having BMs though they are yenifer/smears. D/w RN who reports likely documentation error as pt having good BMs with a moderate formed BM this morning. No changes to nutrition recommendations at this time. Will continue to follow. Recommendations: 1. Continuous Vital HP via G-tube at 65 ml/hr goal to provide 1560 ml volume/day, 1560 kcal, 1304 ml water, and 136 g protein 2. Additional 100 mL water flush Q4H; monitor serum Na 3. PALB q Wednesday/ 4. Daily scaled wts 5. Routine bowel care; additional bowel care PRN given prior constipation Addendum: 10/20/22 at [address] Amended: Links added.
[2022-10-20] MEDS ORDERED: cefepime 2g/NS 100ml ADVANTAGE 100 ML IV SCH (16:00)
--- NOTE | 2022-10-20 18:17 | NUR ---
Patient in room CICU 2008. I have received report from Herlinda STAUFFER and had the opportunity to ask questions and assume patient care.
--- NOTE | 2022-10-20 18:19 | NUR ---
Problems reprioritized. Patient report given, questions answered & plan of care reviewed with Effie STAUFFER.
[2022-10-20] MEDS: primidone 50mg tablet OGT SCH (20:23)
[2022-10-20] MEDS: sennosides/docusate sodium tablet OGT SCH (20:23)
[2022-10-20] MEDS: insulin glargine (Lantus) pen - multi-dose SQ SCH (20:35)
--- NOTE | 2022-10-20 23:08 | NUR ---
svn held at this time due to RVR into 140's
[2022-10-21] VITALS (24 sets, daily range): BP systolic 94–128; BP diastolic 52–83
[2022-10-21] MEDS: hydrocortisone sod succ/PF 100mg/2ml inj. IV SCH ×3 (00:53→15:26)
[2022-10-21] MEDS: midodrine 5mg tablet OGT SCH ×3 (00:53→15:25)
[2022-10-21] MEDS: insulin regular, human U-100 3ml vial - multi-dose SQ SCH ×2 (02:26→08:27)
[2022-10-21 02:40] LABS: BASOPHILS % (AUTO) 0.2 % (0-1); EOSINOPHILS % (AUTO) 0.5 % (0-6); HEMATOCRIT 27.9 % (35.0-45.0); HEMOGLOBIN 8.8 g/dl (12.0-16.0); LYMPHOCYTES # (AUTO) 1.1 X10'3 (1.1-4.8); LYMPHOCYTES % (AUTO) 17.2 % (21-51); MEAN CORPUSCULAR HEMOGLOBIN 31.2 PG (27.0-31.0); MEAN CORPUSCULAR HGB CONC 31.6 g/dL (33.0-36.5); MEAN CORPUSCULAR VOLUME 98.7 FL (78-98); MEAN PLATELET VOLUME 7.4 FL (7.4-10.4); MONOCYTES # (AUTO) 0.4 X10'3 (0-0.9); MONOCYTES % (AUTO) 5.6 % (2-12); NEUTROPHILS # (AUTO) 5.1 X10'3 (1.8-7.7); NEUTROPHILS % (AUTO) 76.5 % (42-75); PLATELET COUNT 248 X10'3 (140-440); RED BLOOD COUNT 2.82 X10'6 (4.20-5.60); RED CELL DISTRIBUTION WIDTH 19.3 % (11.5-14.5); WHITE BLOOD COUNT 6.7 X10'3 (4.5-11.0)
[2022-10-21 02:56] LABS: ALANINE AMINOTRANSFERASE 17 U/L (12-78); ALBUMIN 2.2 G/DL (3.4-5.0); ALBUMIN/GLOBULIN RATIO 0.7 (1.1-1.5); ALKALINE PHOSPHATASE 70 IU/L (46-116); ANION GAP 8 (8-16); ASPARTATE AMINO TRANSFERASE 16 U/L (10-37); BILIRUBIN,TOTAL 0.6 MG/DL (0.1-1.0); BLOOD UREA NITROGEN 23 MG/DL (7-18); BUN/CREATININE RATIO 54.8 (6.6-38.0); CALCIUM 8.9 MG/DL (8.5-10.1); CHLORIDE 105 MMOL/L (99-107); CREATININE 0.42 MG/DL (0.40-0.90); GLUCOSE 100 MG/DL (70-104); MAGNESIUM 2.1 MG/DL (1.5-2.4); PHOSPHORUS 3.3 MG/DL (2.3-4.5); POTASSIUM 3.4 MMOL/L (3.5-5.1); SODIUM 138 MMOL/L (135-145); TOTAL CARBON DIOXIDE 25.1 MMOL/L (24-32); TOTAL PROTEIN 5.4 G/DL (6.4-8.2); TRIGLYCERIDES 110 MG/DL (20-135); eGFR > 90 ML/MIN
[2022-10-21] MEDS: ipratropium/albuterol 3ml nebule NEB SCH ×4 (03:22→16:00)
[2022-10-21] MEDS: dexmedetomidine inj. 400 MCG in normal saline 100ml IV soln 96 ML IV SCH (05:58)
--- NOTE | 2022-10-21 06:09 | NUR ---
Problems reprioritized. Patient report given, questions answered & plan of care reviewed with Eli STAUFFER.
[2022-10-21] MEDS: budesonide 0.5mg/2ml UD nebule IH SCH (07:02)
[2022-10-21] MEDS: topiramate 25mg tablet OGT SCH (07:45)
[2022-10-21] MEDS: predniSONE 20 mg tablet OGT SCH (07:46)
[2022-10-21] MEDS: famotidine/PF 10 mg/ml inj IV SCH (07:46)
[2022-10-21] MEDS: loratadine 10mg tablet OGT SCH (07:47)
[2022-10-21] MEDS: fludrocortisone acetate 0.1mg tablet PO SCH (07:47)
[2022-10-21] MEDS: allopurinol 100mg tablet OGT SCH (07:47)
[2022-10-21] MEDS: aspirin 81mg tab.chew OGT SCH (07:47)
[2022-10-21] MEDS: POTASSIUM BICARB 20meq eff tab 20 MEQ TABLET.EFF OGT PRN (07:48)
[2022-10-21] MEDS: apixaban 2.5mg tablet OGT SCH (07:48)
[2022-10-21] MEDS: amiodarone 200mg tablet OGT SCH (07:49)
[2022-10-21] MEDS: risperiDONE 2mg tablet OGT SCH (07:49)
[2022-10-21] MEDS: clotrimazole topical cream 15gm tube TP SCH (07:49)
[2022-10-21] MEDS: ERTUGLIFLOZIN PIDOLATE 15 MG OGT SCH (07:50)
[2022-10-21] MEDS: ROFLUMILAST 500 MCG OGT SCH (07:51)
[2022-10-21] MEDS: cyclobenzaprine 10mg tablet OGT SCH ×2 (08:06→15:25)
[2022-10-21] MEDS: morphine 2 MG/ML inj. syringe IV PRN (08:23)
[2022-10-21] MEDS: normal saline 1000ml 1,000 ML IV SCH (09:00)
[2022-10-21] MEDS ORDERED: fluoxetine 20mg/5ml UD cup OGT SCH (09:23)
[2022-10-21] MEDS ORDERED: fludrocortisone acetate 0.1mg tablet OGT SCH ×2 (09:24→11:26)
[2022-10-21] MEDS ORDERED: normal saline 500ml IV soln 500 ML IV ONE (10:45)
--- NOTE | 2022-10-21 13:30 | NUR ---
[facility] called at 1200 w/ report. Covid and MRSA complete. Pt has no wounds. VSS. Provider aware of tachycardia. NS bolus given w no improvement. Pt baseline 1teens-120s afib. No additional orders [facility] Pt leaving w/ PICC line in place. NO wounds noted, complete skin check complete at 1330 prior to pt leaving. RN will continue to monitor pt status.
--- NOTE | 2022-10-21 14:00 | NUR ---
RN called admitting and pharmacy to obtain pt belongings and meds. Addendum: 10/21/22 at 1441 by Tank Boland RN Rn spoke to admitting at 1440. Pt Does not have any belongings in a safe, according to admitting, belongings were returned to pt on 10/08. Belongings sent w/ pt include glasses and medications.
[2022-10-21] MEDS: HYDROcodone/acetaminophen 10/325mg tab PO PRN (15:25)
--- NOTE | 2022-10-21 18:35 | NUR ---
Pt d/c at 1720 via ambulance to [facility]. Pt left w/ medication bag and glasses. Care relinquished.
== END 2022-10-21 18:13 | DRG 5 ==
LOC: ER 20:51 → ED HOLD 22:54 → CICU 2S 09-26 04:30 → PCU 3S 10-03 09:52 → CICU 2S 10-09 04:45
PROVIDERS: ADMIT Psychiatry & Neurology Neurocritical Care; ATTEND Psychiatry & Neurology Neurocritical Care
PROC: 5A1955Z Respiratory Ventilation, Greater than 96 Consecutive Hours (ICD-10-PCS; 2022-09-25)
PROC: 0BH17EZ Insertion of Endotracheal Airway into Trachea, Via Natural or Artificial Opening (ICD-10-PCS; 2022-09-25)
PROC: 02HV33Z Insertion of Infusion Device into Superior Vena Cava, Percutaneous Approach (ICD-10-PCS; 2022-09-25)
PROC: B32T1ZZ Computerized Tomography (CT Scan) of Left Pulmonary Artery using Low Osmolar Contrast (ICD-10-PCS; 2022-09-26)
PROC: B3201ZZ Computerized Tomography (CT Scan) of Thoracic Aorta using Low Osmolar Contrast (ICD-10-PCS; 2022-09-26)
PROC: B32S1ZZ Computerized Tomography (CT Scan) of Right Pulmonary Artery using Low Osmolar Contrast (ICD-10-PCS; 2022-09-26)
PROC: 5A09357 Assistance with Respiratory Ventilation, Less than 24 Consecutive Hours, Continuous Positive Airway Pressure (ICD-10-PCS; 2022-10-09)
PROC: 5A09357 Assistance with Respiratory Ventilation, Less than 24 Consecutive Hours, Continuous Positive Airway Pressure (ICD-10-PCS; 2022-10-10)
PROC: 5A09357 Assistance with Respiratory Ventilation, Less than 24 Consecutive Hours, Continuous Positive Airway Pressure (ICD-10-PCS; 2022-10-11)
PROC: 5A1955Z Respiratory Ventilation, Greater than 96 Consecutive Hours (ICD-10-PCS; 2022-10-13)
PROC: 0BH17EZ Insertion of Endotracheal Airway into Trachea, Via Natural or Artificial Opening (ICD-10-PCS; 2022-10-13)
PROC: 02HV33Z Insertion of Infusion Device into Superior Vena Cava, Percutaneous Approach (ICD-10-PCS; 2022-10-13)
PROC: B548ZZA Ultrasonography of Superior Vena Cava, Guidance (ICD-10-PCS; 2022-10-13)
PROC: 0DH64UZ Insertion of Feeding Device into Stomach, Percutaneous Endoscopic Approach (ICD-10-PCS; 2022-10-15)
PROC: 0B113F4 Bypass Trachea to Cutaneous with Tracheostomy Device, Percutaneous Approach (ICD-10-PCS; principal; 2022-10-15 13:30)
DX: A41.9 Sepsis, unspecified organism (principal); R65.21 Severe sepsis with septic shock; J15.211 Pneumonia due to Methicillin susceptible Staphylococcus aureus; J96.21 Acute and chronic respiratory failure with hypoxia; I11.0 Hypertensive heart disease with heart failure; E11.51 Type 2 diabetes mellitus with diabetic peripheral angiopathy without gangrene; I50.32 Chronic diastolic (congestive) heart failure; Z99.81 Dependence on supplemental oxygen; E27.40 Unspecified adrenocortical insufficiency; D64.9 Anemia, unspecified; I47.1 Supraventricular tachycardia; Z99.11 Dependence on respirator [ventilator] status; J44.0 Chronic obstructive pulmonary disease with (acute) lower respiratory infection; I48.91 Unspecified atrial fibrillation; E78.00 Pure hypercholesterolemia, unspecified; F17.200 Nicotine dependence, unspecified, uncomplicated; F32.A Depression, unspecified; G47.33 Obstructive sleep apnea (adult) (pediatric); G89.4 Chronic pain syndrome; I25.10 Atherosclerotic heart disease of native coronary artery without angina pectoris; I67.9 Cerebrovascular disease, unspecified; Z20.822 Contact with and (suspected) exposure to COVID-19; J44.1 Chronic obstructive pulmonary disease with (acute) exacerbation; J96.22 Acute and chronic respiratory failure with hypercapnia; J98.11 Atelectasis; M54.9 Dorsalgia, unspecified; F41.9 Anxiety disorder, unspecified; G43.909 Migraine, unspecified, not intractable, without status migrainosus; K21.9 Gastro-esophageal reflux disease without esophagitis; E87.6 Hypokalemia; B00.9 Herpesviral infection, unspecified; Y95 Nosocomial condition; I77.1 Stricture of artery; Z79.01 Long term (current) use of anticoagulants; I25.2 Old myocardial infarction; Z79.82 Long term (current) use of aspirin; Z79.899 Other long term (current) drug therapy; Z82.49 Family history of ischemic heart disease and other diseases of the circulatory system; Z82.5 Family history of asthma and other chronic lower respiratory diseases; Z83.3 Family history of diabetes mellitus; Z90.710 Acquired absence of both cervix and uterus; Z95.5 Presence of coronary angioplasty implant and graft; Z88.7 Allergy status to serum and vaccine; Z88.8 Allergy status to other drugs, medicaments and biological substances; Z79.02 Long term (current) use of antithrombotics/antiplatelets
CPT/HCPCS: 31500; 36415; 36556; 36569; 36600; 71045; 71275; 80048; 80053; 80202; 81001; 82803; 82810; 82948; 83036; 83605; 83735; 83880; 84100; 84134; 84145; 84478; 84484; 85007; 85008; 85018; 85025; 85379; 85610; 87040; 87070; 87077; 87081; 87186; 87635; 92508; 92616; 93005; 93308; 93922; 94002; 94003; 94640; 94660; 94664; 94668; 94760; 94799; 97110; 97161; 97530; 97535; 99291; A4215; A4333; A4615; A4618; A4623; A4624; A4628; A6196; A6209; A6212; A6213; A6253; A6258; A6402; A6446; A6449; A7000; A7015; A7520; A7521; A9900; B4087; C1751; G0378; J0282; J0330; J0692; J1160; J1265; J1650; J1720; J1815; J1940; J2060; J2250; J2270; J2405; J2543; J2704; J2930; J3010; J3370; J3480; J3490; J7030; J7040; J7042; J7050; J7060; J7120; J7512; P9047; Q9967

== ENCOUNTER 2022-11-16 21:21 | Inpatient (IN) | payer MEDICAID ==
[~2022-11-16] VITALS: Ht 152.4 cm; Wt 80.0 kg
[~2022-11-16 21:21] MED LIST changes: -ALBU18HF2 IH; +BUDE10.2 INH; -BUDE10.26 IH; +CYCL-1 PO; +DULO30CA52 PO; -HUM100IN SQ; -HYDR-3686 PO; -HYDR-3972 PO; +HYDR-3973 PO; -IPRA3AMP31; -PRED20TA PO; -TIOT4MIS2 INH; -etomidate 2mg/ml inj. ONE; -rocuronium 10mg/ml inj IV ONE
[2022-11-16] MEDS ORDERED: albuterol 2.5 MG/3 ML nebule CONTNEB PRN (21:50)
[2022-11-16] MEDS ORDERED: magnesium 2GM in 50ml NS 50 ML IV ONE (22:00)
[2022-11-16] MEDS ORDERED: methylPREDNISolone sod succ 125mg/2ml vial IV ONE (22:05)
[2022-11-16] MEDS ORDERED: vancomycin/NS 1 GM ADD-VANTAGE 250 ML IV ONE (22:05)
[2022-11-16] MEDS ORDERED: piperacillin/tazo 3.375gm/50ml 50 ML IV ONE (22:05)
[2022-11-16] MEDS ORDERED: furosemide 10 MG/1 ML 10ml inj IV ONE (22:25)
[2022-11-16 22:26] LABS: ABG BASE EXCESS 3.7 mmol/L (-2.0-2.0); ABG HCO3 28.2 mmol/L (22.0-26.0); ABG OXYGEN SATURATION 95.1 % (94-97); ABG PCO2 (T) 41.9 mmHg (32.0-45.0); ABG PO2 (T) 72.2 mmHg (75.0-100.0); ALLEN'S TEST POSITIVE; FCOHb 2.1 % (0.0-3.9); FLOW 8 L/min; FMetHb 0.2 % (0.0-1.5); FO2Hb 92.9 % (94-97); PATIENT TEMPERATURE 36.8; TOTAL HEMOGLOBIN 12.6 G/dl (12.0-16.0)
[2022-11-16 22:27] LABS: ALANINE AMINOTRANSFERASE 21 U/L (12-78); ALBUMIN 2.6 G/DL (3.4-5.0); ALBUMIN/GLOBULIN RATIO 0.7 (1.1-1.5); ALKALINE PHOSPHATASE 125 IU/L (46-116); ANION GAP 5 (8-16); ASPARTATE AMINO TRANSFERASE 21 U/L (10-37); BILIRUBIN,TOTAL 0.5 MG/DL (0.1-1.0); BLOOD UREA NITROGEN 14 MG/DL (7-18); CALCIUM 9.2 MG/DL (8.5-10.1); CHLORIDE 99 MMOL/L (99-107); CREATININE 0.61 MG/DL (0.40-0.90); GLUCOSE 145 MG/DL (70-104); POTASSIUM 4.1 MMOL/L (3.5-5.1); SODIUM 137 MMOL/L (135-145); TOTAL CARBON DIOXIDE 33.4 MMOL/L (24-32); TOTAL PROTEIN 6.5 G/DL (6.4-8.2); eGFR > 90 ML/MIN
[2022-11-16 22:35] LABS: HEMOGLOBIN 11.7 g/dl (12.0-16.0)
[2022-11-16 22:37] LABS: BASOPHILS % (AUTO) 0.4 % (0-1); EOSINOPHILS # (AUTO) 0.1 X10'3 (0-0.9); EOSINOPHILS % (AUTO) 1.3 % (0-6); HEMATOCRIT 37.6 % (35.0-45.0); LYMPHOCYTES # (AUTO) 2.7 X10'3 (1.1-4.8); LYMPHOCYTES % (AUTO) 25.9 % (21-51); MEAN CORPUSCULAR HEMOGLOBIN 29.9 PG (27.0-31.0); MEAN CORPUSCULAR HGB CONC 31.1 g/dL (33.0-36.5); MONOCYTES # (AUTO) 0.8 X10'3 (0-0.9); MONOCYTES % (AUTO) 7.3 % (2-12); NEUTROPHILS # (AUTO) 6.8 X10'3 (1.8-7.7); NEUTROPHILS % (AUTO) 65.1 % (42-75); PLATELET COUNT 304 X10'3 (140-440); RED BLOOD COUNT 3.91 X10'6 (4.20-5.60); RED CELL DISTRIBUTION WIDTH 17.4 % (11.5-14.5); WHITE BLOOD COUNT 10.4 X10'3 (4.5-11.0)
[2022-11-16 23:21] LABS: CLARITY,URINE CLOUDY (Clear); COLOR,URINE YELLOW (Yellow); GLUCOSE, URINE NEGATIVE (Neg); KETONES,URINE NEGATIVE (Neg); LEUKOCYTE ESTERASE ,URINE SMALL (Neg); NITRITES, URINE NEGATIVE (Neg); OCCULT BLOOD,URINE TRACE-INTACT (Neg); PH,URINE 6.5 (4.8-8.0); PROTEIN,URINE TRACE mg/dl (Neg); UROBILINOGEN,URINE 0.2 E.U/dL (0.2-1.0)
[2022-11-16 23:31] LABS: SQUAMOUS EPITHELIAL CELL,UR MANY /LPF (FEW)
[2022-11-16 23:33] LABS: WBC,URINE 20-30 /HPF (0-4)
[2022-11-16 23:34] LABS: TRANSITIONAL EPI CELLS,URINE MODERATE /HPF
[2022-11-16 23:37] LABS: YEAST MANY /HPF (NEGATIVE)
[2022-11-16 23:42] LABS: URIC ACID CRYSTALS 4+ /HPF (NEGATIVE)
[2022-11-16 23:44] LABS: BACTERIA,URINE 3+ /HPF (Neg); RBC,URINE 20-50 /HPF (0-2)
[2022-11-16] MEDS ORDERED: mag hydrox/Alum hydrox/simeth 30ml oral suspension PO PRN (23:45)
[2022-11-16] MEDS ORDERED: ondansetron/PF 4mg/2ml inj IV PRN (23:45)
[2022-11-16] MEDS ORDERED: magnesium 4gm in 100ml NS 100 ML IV PRN (23:45)
[2022-11-16] MEDS ORDERED: magnesium Cl slow-release 64mg tablet PO PRN (23:45)
[2022-11-16] MEDS ORDERED: potassium Cl 20 mEq SR tablet PO PRN ×2 (23:45)
[2022-11-16] MEDS ORDERED: acetaminophen 325mg tablet PO PRN (23:45)
[2022-11-16] MEDS ORDERED: magnesium hydroxide 30ml (MOM) UD suspension PO PRN (23:45)
[2022-11-16] MEDS ORDERED: potassium Cl 40MEQ/1/2NS 520ml 520 ML IV PRN (23:45)
[2022-11-16 23:47] LABS: UA COLLECTION TYPE FOLEY CATH
[2022-11-16] MEDS ORDERED: glucagon, human recombinant 1mg kit SUBCUT PRN (23:50)
[2022-11-16] MEDS ORDERED: DEXTROSE 15 GM of carb/4 tabs (each vial/BOTTLE has 4 tablets) PO PRN ×2 (23:50)
[2022-11-16] MEDS ORDERED: MESSAGE TO PHARMACY PO ONE (23:50)
[2022-11-16] MEDS ORDERED: dextrose 50%-water 50ml dispensing syringe IV PRN ×2 (23:50)
[2022-11-17 00:04] LABS: ANISOCYTOSIS 1+; PLATELET ESTIMATE NORMAL; TOTAL CELLS COUNTED 100
[2022-11-17 00:06] LABS: POLYCHROMASIA 1+; SMUDGE CELLS 2+; TEAR DROP CELLS FEW
[2022-11-17] MEDS ORDERED: metoprolol tartrate 1mg/ml inj IV ONE (01:30)
[2022-11-17] MEDS ORDERED: APIX2.5T PO (01:53)
[2022-11-17] MEDS ORDERED: FLUD0.1T PO (01:53)
[2022-11-17] MEDS ORDERED: FLUO40CA10 PO (01:53)
[2022-11-17] MEDS ORDERED: GUAI600T45 PO (01:53)
[2022-11-17] MEDS: clindamycin 300mg/D5W 50mL 50 ML IV SCH ×3 (02:05→15:53)
[2022-11-17] MEDS ORDERED: PRED5TAB49 PO (02:07)
[2022-11-17] MEDS ORDERED: AMIO200T27 PO (02:11)
[2022-11-17] MEDS ORDERED: CLON-528 PO (03:08)
[2022-11-17] MEDS ORDERED: INSU100V5 IJ ×2 (03:08→03:24)
[2022-11-17] MEDS ORDERED: CIPR-259 PO (03:08)
[2022-11-17] MEDS ORDERED: BALS60OI TOP (03:08)
[2022-11-17] MEDS ORDERED: HYDR-3972 PO (03:08)
[2022-11-17] MEDS ORDERED: MIDO5TAB4 PO (03:08)
[2022-11-17] MEDS ORDERED: nitroGLYCERIN 0.4mg SUBLingual tab SL PRN (03:35)
--- NOTE | 2022-11-17 06:38 | NUR ---
Patient received in a hospital bed asleep,respirations regular,arousable,on a face mask oxygen 3L sating 95%. We will monitor.
[2022-11-17] MEDS ORDERED: predniSONE 5mg tablet PO SCH (08:00)
[2022-11-17] MEDS: docusate sod 100mg capsule PO SCH ×2 (08:00→20:00)
[2022-11-17] MEDS ORDERED: albuterol 2.5 MG/3 ML nebule NEB SCH (08:00)
[2022-11-17] MEDS: piperacillin/tazo 3.375gm/50ml 50 ML IV SCH ×2 (08:00→16:00)
[2022-11-17] MEDS ORDERED: budesonide 0.5mg/2ml UD nebule IH SCH (08:00)
[2022-11-17] MEDS: K and/or MAG REPLACEMENT MC SCH ×2 (08:00→20:00)
[2022-11-17] MEDS: midodrine 5mg tablet PO SCH ×3 (08:56→23:50)
[2022-11-17] MEDS: duloxetine 30mg CAPSULE.DR PO SCH (08:56)
[2022-11-17] MEDS: FLUoxetine 20mg capsule PO SCH (08:57)
[2022-11-17] MEDS: guaiFENesin ER 600mg tablet PO SCH ×2 (08:57→20:30)
[2022-11-17] MEDS: aspirin 81mg, enteric-coated 1 TAB TABLET.DR PO SCH (08:58)
[2022-11-17] MEDS: amiodarone 200mg tablet PO SCH ×2 (08:58→20:30)
[2022-11-17] MEDS: fludrocortisone acetate 0.1mg tablet PO SCH (08:58)
[2022-11-17] MEDS: topiramate 25mg tablet PO SCH ×2 (08:59→20:30)
--- NOTE | 2022-11-17 09:07 | NUR ---
GAYLE NOT AVAILABLE, CALLED PHARMACY.
--- NOTE | 2022-11-17 09:40 | NUR ---
PICC RN at bedside.
[2022-11-17 09:55] LABS: BASOPHILS % (AUTO) 0.2 % (0-1); EOSINOPHILS % (AUTO) 0 % (0-6); HEMATOCRIT 34.4 % (35.0-45.0); HEMOGLOBIN 10.7 g/dl (12.0-16.0); LYMPHOCYTES # (AUTO) 1.1 X10'3 (1.1-4.8); LYMPHOCYTES % (AUTO) 15.3 % (21-51); MEAN CORPUSCULAR HEMOGLOBIN 29.3 PG (27.0-31.0); MEAN CORPUSCULAR HGB CONC 31.1 g/dL (33.0-36.5); MEAN CORPUSCULAR VOLUME 94.3 FL (78-98); MEAN PLATELET VOLUME 6.8 FL (7.4-10.4); MONOCYTES # (AUTO) 0.3 X10'3 (0-0.9); MONOCYTES % (AUTO) 3.9 % (2-12); NEUTROPHILS # (AUTO) 5.9 X10'3 (1.8-7.7); NEUTROPHILS % (AUTO) 80.6 % (42-75); PLATELET COUNT 317 X10'3 (140-440); RED BLOOD COUNT 3.65 X10'6 (4.20-5.60); RED CELL DISTRIBUTION WIDTH 17.1 % (11.5-14.5); WHITE BLOOD COUNT 7.3 X10'3 (4.5-11.0)
--- NOTE | 2022-11-17 10:00 | NUR ---
PICC to right upper arm difficult to flush and is not drawing,paged PICC RN to place extended, extended to left upper arm.
[2022-11-17 10:10] LABS: ALANINE AMINOTRANSFERASE 19 U/L (12-78); ALBUMIN 2.5 G/DL (3.4-5.0); ALBUMIN/GLOBULIN RATIO 0.7 (1.1-1.5); ALKALINE PHOSPHATASE 120 IU/L (46-116); ANION GAP 7 (8-16); ASPARTATE AMINO TRANSFERASE 18 U/L (10-37); BILIRUBIN,TOTAL 0.4 MG/DL (0.1-1.0); BLOOD UREA NITROGEN 16 MG/DL (7-18); BUN/CREATININE RATIO 21.9 (6.6-38.0); CALCIUM 8.5 MG/DL (8.5-10.1); CHLORIDE 100 MMOL/L (99-107); CREATININE 0.73 MG/DL (0.40-0.90); GLUCOSE 185 MG/DL (70-104); MAGNESIUM 2.3 MG/DL (1.5-2.4); POTASSIUM 4.5 MMOL/L (3.5-5.1); SODIUM 140 MMOL/L (135-145); TOTAL CARBON DIOXIDE 33.4 MMOL/L (24-32); TOTAL PROTEIN 6.3 G/DL (6.4-8.2); eGFR 80 ML/MIN
[2022-11-17] MEDS ORDERED: ipratropium/albuterol 3ml nebule NEB PRN (10:30)
[2022-11-17] MEDS: ipratropium/albuterol 3ml nebule NEB SCH ×4 (11:00→22:49)
[2022-11-17 11:10] VITALS: BP 97/65
[2022-11-17] MEDS ORDERED: iohexol 350MG/ML 100ml bottle IV ONE (11:10)
[2022-11-17] MEDS: apixaban 2.5mg tablet PO SCH ×2 (12:44→20:29)
--- NOTE | 2022-11-17 14:43 | NUR ---
Paged Dr. Quinn asking if the patient can eat? Message: [phone], Emelia Henning. Can the patient have a diet ordered? Jess [facility] [id number]
[2022-11-17] MEDS: methylPREDNISolone sod succ 125mg/2ml vial IV SCH ×2 (15:53→20:30)
[2022-11-17] MEDS ORDERED: duloxetine 30mg CAPSULE.DR PO SCH (18:00)
--- NOTE | 2022-11-17 18:49 | NUR ---
Problems reprioritized. Patient report given, questions answered & plan of care reviewed with Berna RN, patient stable at transfer of care.
[2022-11-17] MEDS: HYDROcodone/acetaminophen 10/325mg tab PO PRN (20:29)
[2022-11-17] MEDS: furosemide 10 MG/1 ML 10ml inj IV SCH (20:31)
[2022-11-17 22:00] VITALS: BP 82/58
[2022-11-17] MEDS ORDERED: vancomycin/NS 1 GM ADD-VANTAGE 250 ML IV SCH (22:00)
[2022-11-17 23:00] VITALS: BP 95/61
[2022-11-17] MEDS: insulin Lispro (HumaLOG) vial - multi-dose SQ SCH (23:50)
[2022-11-18] MEDS: piperacillin/tazo 3.375gm/50ml 50 ML IV SCH ×2 (01:34→09:48)
[2022-11-18] MEDS: methylPREDNISolone sod succ 125mg/2ml vial IV SCH ×3 (02:57→13:53)
[2022-11-18] MEDS: ipratropium/albuterol 3ml nebule NEB SCH ×4 (03:54→15:22)
--- NOTE | 2022-11-18 06:24 | NUR ---
Patient in room PCU 3023. I have received report from Abimbola STAUFFER and had the opportunity to ask questions and assume patient care.
[2022-11-18 06:48] LABS: ALANINE AMINOTRANSFERASE 18 U/L (12-78); ALBUMIN 2.5 G/DL (3.4-5.0); ALBUMIN/GLOBULIN RATIO 0.7 (1.1-1.5); ALKALINE PHOSPHATASE 113 IU/L (46-116); ANION GAP 8 (8-16); ASPARTATE AMINO TRANSFERASE 20 U/L (10-37); BILIRUBIN,TOTAL 0.4 MG/DL (0.1-1.0); BLOOD UREA NITROGEN 16 MG/DL (7-18); BUN/CREATININE RATIO 27.1 (6.6-38.0); CALCIUM 8.8 MG/DL (8.5-10.1); CHLORIDE 99 MMOL/L (99-107); CREATININE 0.59 MG/DL (0.40-0.90); GLUCOSE 166 MG/DL (70-104); MAGNESIUM 2.4 MG/DL (1.5-2.4); POTASSIUM 3.7 MMOL/L (3.5-5.1); SODIUM 136 MMOL/L (135-145); TOTAL PROTEIN 6.3 G/DL (6.4-8.2); eGFR > 90 ML/MIN
[2022-11-18 07:19] VITALS: BP 119/85
[2022-11-18] MEDS: docusate sod 100mg capsule PO SCH (08:00)
[2022-11-18] MEDS: K and/or MAG REPLACEMENT MC SCH (08:00)
[2022-11-18 08:01] LABS: BASOPHILS % (AUTO) 0.2 % (0-1); EOSINOPHILS % (AUTO) 0 % (0-6); HEMATOCRIT 35.4 % (35.0-45.0); HEMOGLOBIN 10.9 g/dl (12.0-16.0); LYMPHOCYTES # (AUTO) 0.6 X10'3 (1.1-4.8); LYMPHOCYTES % (AUTO) 10.1 % (21-51); MEAN CORPUSCULAR HEMOGLOBIN 29.2 PG (27.0-31.0); MEAN CORPUSCULAR HGB CONC 30.8 g/dL (33.0-36.5); MEAN CORPUSCULAR VOLUME 94.9 FL (78-98); MONOCYTES # (AUTO) 0.2 X10'3 (0-0.9); MONOCYTES % (AUTO) 3.4 % (2-12); NEUTROPHILS # (AUTO) 5.4 X10'3 (1.8-7.7); NEUTROPHILS % (AUTO) 86.3 % (42-75); PLATELET COUNT 298 X10'3 (140-440); RED BLOOD COUNT 3.73 X10'6 (4.20-5.60); RED CELL DISTRIBUTION WIDTH 16.9 % (11.5-14.5); WHITE BLOOD COUNT 6.3 X10'3 (4.5-11.0)
[2022-11-18] MEDS: guaiFENesin ER 600mg tablet PO SCH (09:12)
[2022-11-18] MEDS: furosemide 10 MG/1 ML 10ml inj IV SCH (09:12)
[2022-11-18] MEDS: FLUoxetine 20mg capsule PO SCH (09:12)
[2022-11-18] MEDS: aspirin 81mg, enteric-coated 1 TAB TABLET.DR PO SCH (09:13)
[2022-11-18] MEDS: duloxetine 30mg CAPSULE.DR PO SCH (09:14)
[2022-11-18] MEDS: HYDROcodone/acetaminophen 10/325mg tab PO PRN ×2 (09:27→13:53)
[2022-11-18] MEDS: apixaban 2.5mg tablet PO SCH (09:28)
[2022-11-18] MEDS: fludrocortisone acetate 0.1mg tablet PO SCH (09:28)
[2022-11-18] MEDS: midodrine 5mg tablet PO SCH (09:28)
[2022-11-18] MEDS: topiramate 25mg tablet PO SCH (09:29)
[2022-11-18] MEDS: insulin Lispro (HumaLOG) vial - multi-dose SQ SCH (10:04)
[2022-11-18] MEDS: amiodarone 200mg tablet PO SCH (10:37)
[2022-11-18] MEDS ORDERED: vancomycin/NS 1 GM ADD-VANTAGE 250 ML IV SCH (11:00)
[2022-11-18] MEDS ORDERED: ondansetron 4mg rapidly disintigrating tab PO PRN (16:26)
--- NOTE | 2022-11-18 17:44 | NUR ---
Patient stable for transfer per Dr. Quinn. Called and gave report to nurse at [facility]. Pt kept the extended PIV, they will have antibiotics given. Tele discontinued. All pt had no belongings. Family took them all home prior to her transfer.
[2022-11-18] MEDS ORDERED: VANCOMYCIN LEVEL IV ONE (22:30)
== END 2022-11-18 16:26 | DRG 139 ==
LOC: ER 21:22 → ED HOLD 23:47 → EDBEDREQ 11-17 09:05 → PCU 3S 11-17 10:26
PROVIDERS: ADMIT Internal Medicine; ATTEND Internal Medicine
PROC: BW241ZZ Computerized Tomography (CT Scan) of Chest and Abdomen using Low Osmolar Contrast (ICD-10-PCS; principal; 2022-11-17)
DX: J18.9 Pneumonia, unspecified organism (principal); J96.21 Acute and chronic respiratory failure with hypoxia; G93.41 Metabolic encephalopathy; J44.0 Chronic obstructive pulmonary disease with (acute) lower respiratory infection; I48.91 Unspecified atrial fibrillation; G43.909 Migraine, unspecified, not intractable, without status migrainosus; R62.7 Adult failure to thrive; J81.1 Chronic pulmonary edema; F03.90 Unspecified dementia, unspecified severity, without behavioral disturbance, psychotic disturbance, mood disturbance, and anxiety; I11.0 Hypertensive heart disease with heart failure; Z20.822 Contact with and (suspected) exposure to COVID-19; E78.00 Pure hypercholesterolemia, unspecified; F32.A Depression, unspecified; I25.10 Atherosclerotic heart disease of native coronary artery without angina pectoris; N39.0 Urinary tract infection, site not specified; Y95 Nosocomial condition; F41.9 Anxiety disorder, unspecified; G89.29 Other chronic pain; K21.9 Gastro-esophageal reflux disease without esophagitis; Z79.4 Long term (current) use of insulin; Z79.899 Other long term (current) drug therapy; I25.2 Old myocardial infarction; Z82.0 Family history of epilepsy and other diseases of the nervous system; Z82.3 Family history of stroke; Z82.49 Family history of ischemic heart disease and other diseases of the circulatory system; Z82.5 Family history of asthma and other chronic lower respiratory diseases; Z83.3 Family history of diabetes mellitus; Z86.73 Personal history of transient ischemic attack (TIA), and cerebral infarction without residual deficits; Z87.891 Personal history of nicotine dependence; Z90.710 Acquired absence of both cervix and uterus; Z95.1 Presence of aortocoronary bypass graft; Z95.5 Presence of coronary angioplasty implant and graft; Z88.7 Allergy status to serum and vaccine; Z88.8 Allergy status to other drugs, medicaments and biological substances; Z68.34 Body mass index [BMI] 34.0-34.9, adult
CPT/HCPCS: 36410; 36415; 36600; 71045; 71275; 76937; 80053; 81001; 82803; 82948; 83605; 83735; 83880; 84145; 84484; 85007; 85018; 85025; 85610; 87040; 87088; 87502; 87503; 87635; 93005; 94640; 94760; 99285; A4615; A4620; A7015; C1751; G0378; J1815; J1940; J2543; J2930; J3370; J3475; J3490; J7512; Q9967

== ENCOUNTER 2022-12-12 15:19 | Inpatient (IN) | payer MEDICAID ==
[~2022-12-12] VITALS: Ht 162.6 cm; Wt 74.5 kg
[~2022-12-12 15:19] MED LIST changes: +AMIO200T27 PO; +APIX2.5T PO; +BALS60OI TOP; +CIPR-259 PO; -CLON-369 PO; +CLON-528 PO; -CLOP75TA34 PO; -CLOT12CR TOP; -ERTU15TA PO; +FLUD0.1T PO; +FLUO40CA10 PO; +GUAI600T45 PO; +HYDR-3972 PO; -HYDR-3973 PO; +INSU100V5 IJ; -LIRA0.6P2 SUBCUT; -METO25TA6 PO; +MIDO5TAB4 PO; +PRED5TAB49 PO; -PRIM50TA27 PO; -ROFL500T7 PO
[2022-12-12 16:16] LABS: BASOPHILS # (AUTO) 0.1 X10'3 (0-0.2); BASOPHILS % (AUTO) 0.4 % (0-1); EOSINOPHILS # (AUTO) 0.1 X10'3 (0-0.9); EOSINOPHILS % (AUTO) 0.5 % (0-6); HEMOGLOBIN 12.4 g/dl (12.0-16.0); LYMPHOCYTES # (AUTO) 0.9 X10'3 (1.1-4.8); LYMPHOCYTES % (AUTO) 7.4 % (21-51); MEAN CORPUSCULAR HEMOGLOBIN 28.8 PG (27.0-31.0); MEAN CORPUSCULAR HGB CONC 31.7 g/dL (33.0-36.5); MEAN CORPUSCULAR VOLUME 90.8 FL (78-98); MONOCYTES # (AUTO) 0.3 X10'3 (0-0.9); MONOCYTES % (AUTO) 2.7 % (2-12); NEUTROPHILS # (AUTO) 11.4 X10'3 (1.8-7.7); PLATELET COUNT 389 X10'3 (140-440); WHITE BLOOD COUNT 12.8 X10'3 (4.5-11.0)
[2022-12-12 16:31] LABS: ALANINE AMINOTRANSFERASE 28 U/L (12-78); ALBUMIN 2.8 G/DL (3.4-5.0); ALBUMIN/GLOBULIN RATIO 0.7 (1.1-1.5); ALKALINE PHOSPHATASE 133 IU/L (46-116); ANION GAP 6 (8-16); ASPARTATE AMINO TRANSFERASE 21 U/L (10-37); BILIRUBIN,TOTAL 0.6 MG/DL (0.1-1.0); BLOOD UREA NITROGEN 14 MG/DL (7-18); CALCIUM 9.6 MG/DL (8.5-10.1); CHLORIDE 98 MMOL/L (99-107); GLUCOSE 200 MG/DL (70-104); POTASSIUM 4.4 MMOL/L (3.5-5.1); SODIUM 134 MMOL/L (135-145); TOTAL CARBON DIOXIDE 29.6 MMOL/L (24-32); TOTAL PROTEIN 6.9 G/DL (6.4-8.2); eGFR 84 ML/MIN
[2022-12-12] MEDS ORDERED: vancomycin/NS 1 GM ADD-VANTAGE 250 ML IV ONE (17:15)
[2022-12-12] MEDS ORDERED: CefTRIAXone 2gm/D5W 50ml BAG 50 ML IV ONE (17:15)
[2022-12-12] MEDS ORDERED: iohexol 300mg/ml 100ml inj. ONE (17:30)
--- NOTE | 2022-12-12 18:56 | NUR ---
Patient declines ability to provide urine, patient aware urine is needed, appears offended urine requested. Patient informed this is for usage in testing for further illness. Additionally, patient refuses straight cath.
[2022-12-12] MEDS ORDERED: normal saline 1000ML IV soln IV ONE (19:05)
--- NOTE | 2022-12-12 19:24 | NUR ---
Patient reports unable to lay flat, patient accomodated with recliner. Patient self transitioned to chair, reports feeling much better. Patient replaced on spo2 monitor, with this light activity patient spo2 dropped 86 percent, dyspnea with minimal exertion. Patient spo2 recovered to low 90s, placed on 2L, improved to 95 percent.
--- NOTE | 2022-12-12 19:37 | NUR ---
Patient reports having 9/10 back pain. Patient assisted higher in bed to assist back pain and breathing. Requested provider order pain medication.
[2022-12-12] MEDS ORDERED: ondansetron/PF 4mg/2ml inj IV ONE (19:40)
[2022-12-12] MEDS ORDERED: morphine 4 MG/ML inj SYRINge IV ONE (19:40)
[2022-12-12] MEDS ORDERED: magnesium 4gm in 100ml NS 100 ML IV PRN (20:20)
[2022-12-12] MEDS: normal saline 1000ml 1,000 ML IV SCH (20:20)
[2022-12-12] MEDS ORDERED: magnesium Cl slow-release 64mg tablet PO PRN (20:20)
[2022-12-12] MEDS ORDERED: acetaminophen 325mg tablet PO PRN ×2 (20:20)
[2022-12-12] MEDS ORDERED: potassium Cl 20 mEq SR tablet PO PRN ×2 (20:20)
[2022-12-12] MEDS ORDERED: morphine 2 MG/ML inj. syringe IV PRN (20:20)
[2022-12-12] MEDS ORDERED: potassium Cl 40MEQ/1/2NS 520ml 520 ML IV PRN (20:20)
[2022-12-12] MEDS ORDERED: ondansetron/PF 4mg/2ml inj IV PRN (20:20)
[2022-12-12] MEDS ORDERED: DEXTROSE 15 GM of carb/4 tabs (each vial/BOTTLE has 4 tablets) PO PRN ×2 (20:25)
[2022-12-12] MEDS ORDERED: diltiazem-NS 100mg/100ml 100 ML IV SCH (20:25)
[2022-12-12] MEDS ORDERED: albuterol 2.5 MG/3 ML nebule NEB PRN (20:25)
[2022-12-12] MEDS ORDERED: MESSAGE TO PHARMACY PO ONE (20:25)
[2022-12-12] MEDS ORDERED: glucagon, human recombinant 1mg kit SUBCUT PRN (20:25)
[2022-12-12] MEDS ORDERED: dextrose 50%-water 50ml dispensing syringe IV PRN ×2 (20:25)
[2022-12-12] MEDS ORDERED: insulin Lispro (HumaLOG) vial - multi-dose SQ SCH (20:25)
--- NOTE | 2022-12-12 20:56 | NUR ---
Patient requesting additional pain medication at this time. New order for cardizem noted. Patient remains on ER ordered NSS bolus, BP borderline as documented at this time. Provider paged to discuss Cardizem and pain medication. Provider advised order PO medications. Advised start Cardizem at 2.5.
[2022-12-12] MEDS ORDERED: temazepam 15mg capsule PO PRN (21:00)
[2022-12-12] MEDS: HYDROcodone/acetaminophen 10/325mg tab PO PRN (21:40)
[2022-12-12] MEDS: insulin glargine (Lantus) pen - multi-dose SQ SCH (21:47)
--- NOTE | 2022-12-12 22:25 | NUR ---
Patient abdominal pads are saturated. These were changed. Gown and blankets also changed. Patient reports pain is improved at this time.
--- NOTE | 2022-12-12 23:17 | NUR ---
Patient R AC IV site noted edematous, suspected infiltration. Site DC'd. New 20g placed to L Wrist.
[2022-12-12 23:54] LABS: CLARITY,URINE CLOUDY (Clear); COLOR,URINE YELLOW (Yellow); GLUCOSE, URINE >=1000 mg/dl (Neg); KETONES,URINE NEGATIVE (Neg); LEUKOCYTE ESTERASE ,URINE TRACE (Neg); NITRITES, URINE NEGATIVE (Neg); OCCULT BLOOD,URINE SMALL (Neg); PH,URINE 6.5 (4.8-8.0); PROTEIN,URINE NEGATIVE (Neg); UA COLLECTION TYPE NON-SPECIFIED; UROBILINOGEN,URINE 0.2 E.U/dL (0.2-1.0)
--- NOTE | 2022-12-12 23:59 | NUR ---
Patient IV site is infiltrated. Attempted restart to R wrist unsuccessful. Another RN attempted L EJ, this was unsuccessful. Another qualified RN attempted US IV start to L arm, patient has noted vein that is close to artery, did not feel comfortable starting.
[2022-12-13 00:02] LABS: BACTERIA,URINE 4+ /HPF (Neg); MUCUS STRANDS NONE SEEN /LPF (Neg); RBC,URINE 0-2 /HPF (0-2); SQUAMOUS EPITHELIAL CELL,UR FEW /LPF (FEW); WBC,URINE 50-100 /HPF (0-4)
--- NOTE | 2022-12-13 00:48 | NUR ---
Admitting provider notified of inability to obtain IV access via peripheral stick, ultrasound, or EJ. Advised to have ER physician place central line access. patient consented for procedure. Patient 3x lumen R IJ placed by Dr. Ryan using sterile technique. 3x lumen positive return. XR ordered to confirm placement.
[2022-12-13] MEDS ORDERED: CLOP75TA34 PO (02:38)
[2022-12-13] MEDS ORDERED: CLON0.5T4 PO (02:38)
[2022-12-13] MEDS ORDERED: ERTU15TA PO (02:38)
[2022-12-13] MEDS ORDERED: ALBU18HF2 INH (02:38)
[2022-12-13] MEDS ORDERED: IPRA3AMP31 NEB (02:38)
[2022-12-13] MEDS ORDERED: ROFL500T7 PO (02:38)
[2022-12-13] MEDS ORDERED: TIOT4MIS2 INH (02:38)
[2022-12-13] MEDS ORDERED: NITR0.4T SL (02:51)
[2022-12-13] MEDS ORDERED: DIPH-1055 PO (02:51)
[2022-12-13] MEDS ORDERED: METO25TA6 PO (02:51)
[2022-12-13 03:53] LABS: ALANINE AMINOTRANSFERASE 20 U/L (12-78); ALBUMIN 2.4 G/DL (3.4-5.0); ALBUMIN/GLOBULIN RATIO 0.7 (1.1-1.5); ALKALINE PHOSPHATASE 107 IU/L (46-116); ANION GAP 7 (8-16); ASPARTATE AMINO TRANSFERASE 13 U/L (10-37); BILIRUBIN,TOTAL 0.3 MG/DL (0.1-1.0); BLOOD UREA NITROGEN 11 MG/DL (7-18); BUN/CREATININE RATIO 22.4 (6.6-38.0); CALCIUM 8.9 MG/DL (8.5-10.1); CHLORIDE 106 MMOL/L (99-107); CREATININE 0.49 MG/DL (0.40-0.90); GLUCOSE 106 MG/DL (70-104); SODIUM 142 MMOL/L (135-145); TOTAL CARBON DIOXIDE 28.9 MMOL/L (24-32); TOTAL PROTEIN 5.8 G/DL (6.4-8.2); eGFR > 90 ML/MIN
[2022-12-13 04:19] LABS: MEAN CORPUSCULAR VOLUME 91.8 FL (78-98); MEAN PLATELET VOLUME 7.2 FL (7.4-10.4)
[2022-12-13 04:21] LABS: BASOPHILS % (AUTO) 0.4 % (0-1); EOSINOPHILS # (AUTO) 0.2 X10'3 (0-0.9); EOSINOPHILS % (AUTO) 1.5 % (0-6); HEMOGLOBIN 10.6 g/dl (12.0-16.0); LYMPHOCYTES # (AUTO) 1.5 X10'3 (1.1-4.8); LYMPHOCYTES % (AUTO) 13.6 % (21-51); MEAN CORPUSCULAR HEMOGLOBIN 28.7 PG (27.0-31.0); MEAN CORPUSCULAR HGB CONC 31.3 g/dL (33.0-36.5); MONOCYTES # (AUTO) 0.8 X10'3 (0-0.9); MONOCYTES % (AUTO) 7.7 % (2-12); NEUTROPHILS # (AUTO) 8.4 X10'3 (1.8-7.7); NEUTROPHILS % (AUTO) 76.8 % (42-75); PLATELET COUNT 368 X10'3 (140-440); RED CELL DISTRIBUTION WIDTH 17.2 % (11.5-14.5); WHITE BLOOD COUNT 10.9 X10'3 (4.5-11.0)
[2022-12-13] MEDS ORDERED: vancomycin inj 1,000 MG in normal saline 250ml IV soln 250 ML IV SCH (06:00)
[2022-12-13] MEDS ORDERED: vancomycin/NS 1 GM ADD-VANTAGE 250 ML IV SCH (06:09)
[2022-12-13] MEDS ORDERED: diatr meglu/diatrizoate 30ml oral sol.-(3 dose) bottle PO ONE (07:10)
[2022-12-13] MEDS: amiodarone 200mg tablet PO SCH ×2 (07:34→19:40)
[2022-12-13] MEDS: duloxetine 30mg CAPSULE.DR PO SCH (07:37)
[2022-12-13] MEDS: roflumilast 500mcg tablet PO SCH (07:38)
[2022-12-13] MEDS: metoprolol tartrate 25mg tablet PO SCH ×2 (07:38→19:42)
[2022-12-13] MEDS: aspirin 81mg, enteric-coated 1 TAB TABLET.DR PO SCH (07:38)
[2022-12-13] MEDS: clopidogrel 75mg tablet PO SCH (07:39)
[2022-12-13] MEDS: gabapentin 400mg capsule PO SCH ×3 (07:39→23:18)
[2022-12-13] MEDS: topiramate 25mg tablet PO SCH ×2 (07:39→19:40)
[2022-12-13] MEDS: allopurinol 100mg tablet PO SCH (07:40)
[2022-12-13] MEDS: guaiFENesin ER 600mg tablet PO SCH ×2 (08:43→19:39)
[2022-12-13] MEDS: ipratropium/albuterol 3ml nebule NEB SCH ×3 (09:07→19:53)
[2022-12-13] MEDS: budesonide 0.5mg/2ml UD nebule IH SCH ×2 (09:08→19:53)
--- NOTE | 2022-12-13 11:08 | NUR ---
RECEIVED REPORT FROM EH MOSES IN ED
[2022-12-13] MEDS: heparin, porcine 5000 units/ml vial SQ SCH ×2 (12:03→19:43)
[2022-12-13] MEDS: morphine 2 MG/ML inj. syringe IV PRN ×3 (12:09→21:31)
[2022-12-13] MEDS: normal saline 1000ml 1,000 ML IV SCH (12:15)
[2022-12-13 12:30] VITALS: BP 102/72
[2022-12-13] MEDS ORDERED: ondansetron 4mg rapidly disintigrating tab PO PRN (15:40)
[2022-12-13 18:00] VITALS: BP 109/73
--- NOTE | 2022-12-13 18:29 | NUR ---
gave report to renu berger
[2022-12-13] MEDS: vancomycin/NS 1 GM ADD-VANTAGE 250 ML IV SCH (19:45)
[2022-12-13] MEDS: insulin glargine (Lantus) pen - multi-dose SQ SCH (21:26)
[2022-12-13 23:00] VITALS: BP 93/70
[2022-12-14] MEDS: normal saline 1000ml 1,000 ML IV SCH ×2 (00:48→16:06)
[2022-12-14] MEDS: ipratropium/albuterol 3ml nebule NEB SCH ×3 (03:11→19:43)
[2022-12-14 03:13] VITALS: BP 96/59
[2022-12-14] MEDS: HYDROcodone/acetaminophen 10/325mg tab PO PRN ×3 (04:18→17:22)
[2022-12-14 06:00] VITALS: BP 106/75
--- NOTE | 2022-12-14 06:11 | NUR ---
Problems reprioritized. Patient report given, questions answered & plan of care reviewed with Hien STAUFFER.
[2022-12-14] MEDS ORDERED: VANCOMYCIN LEVEL IV ONE (06:30)
--- NOTE | 2022-12-14 06:30 | NUR ---
received report from ab rn
[2022-12-14] MEDS: topiramate 25mg tablet PO SCH ×2 (06:53→20:08)
[2022-12-14] MEDS: duloxetine 30mg CAPSULE.DR PO SCH (06:54)
[2022-12-14] MEDS: roflumilast 500mcg tablet PO SCH (06:54)
[2022-12-14] MEDS: amiodarone 200mg tablet PO SCH ×2 (06:55→20:11)
[2022-12-14] MEDS: metoprolol tartrate 25mg tablet PO SCH (06:55)
[2022-12-14] MEDS: aspirin 81mg, enteric-coated 1 TAB TABLET.DR PO SCH (06:55)
[2022-12-14] MEDS: allopurinol 100mg tablet PO SCH (06:56)
[2022-12-14] MEDS: gabapentin 400mg capsule PO SCH ×2 (06:56→16:04)
[2022-12-14] MEDS: guaiFENesin ER 600mg tablet PO SCH ×2 (06:56→20:05)
[2022-12-14] MEDS: clopidogrel 75mg tablet PO SCH (06:56)
[2022-12-14] MEDS: morphine 2 MG/ML inj. syringe IV PRN ×4 (06:57→20:13)
[2022-12-14 07:01] LABS: HEMOGLOBIN 10.2 g/dl (12.0-16.0)
[2022-12-14 07:02] LABS: BASOPHILS # (AUTO) 0.1 X10'3 (0-0.2); BASOPHILS % (AUTO) 0.8 % (0-1); EOSINOPHILS # (AUTO) 0.3 X10'3 (0-0.9); EOSINOPHILS % (AUTO) 3.4 % (0-6); HEMATOCRIT 32.2 % (35.0-45.0); LYMPHOCYTES # (AUTO) 1.3 X10'3 (1.1-4.8); LYMPHOCYTES % (AUTO) 14.6 % (21-51); MEAN CORPUSCULAR HEMOGLOBIN 29.1 PG (27.0-31.0); MEAN CORPUSCULAR HGB CONC 31.6 g/dL (33.0-36.5); MEAN CORPUSCULAR VOLUME 92.1 FL (78-98); MEAN PLATELET VOLUME 6.6 FL (7.4-10.4); MONOCYTES # (AUTO) 0.6 X10'3 (0-0.9); MONOCYTES % (AUTO) 6.9 % (2-12); NEUTROPHILS # (AUTO) 6.5 X10'3 (1.8-7.7); NEUTROPHILS % (AUTO) 74.3 % (42-75); PLATELET COUNT 366 X10'3 (140-440); RED BLOOD COUNT 3.49 X10'6 (4.20-5.60); WHITE BLOOD COUNT 8.7 X10'3 (4.5-11.0)
[2022-12-14] MEDS: heparin, porcine 5000 units/ml vial SQ SCH ×2 (07:03→20:09)
[2022-12-14] MEDS: vancomycin/NS 1 GM ADD-VANTAGE 250 ML IV SCH (07:05)
[2022-12-14 07:20] LABS: ALANINE AMINOTRANSFERASE 17 U/L (12-78); ALBUMIN/GLOBULIN RATIO 0.6 (1.1-1.5); ALKALINE PHOSPHATASE 94 IU/L (46-116); ANION GAP 7 (8-16); ASPARTATE AMINO TRANSFERASE 10 U/L (10-37); BILIRUBIN,TOTAL 0.4 MG/DL (0.1-1.0); BLOOD UREA NITROGEN 12 MG/DL (7-18); CALCIUM 8.1 MG/DL (8.5-10.1); CHLORIDE 107 MMOL/L (99-107); GLUCOSE 78 MG/DL (70-104); POTASSIUM 3.8 MMOL/L (3.5-5.1); SODIUM 140 MMOL/L (135-145); TOTAL CARBON DIOXIDE 26.4 MMOL/L (24-32); TOTAL PROTEIN 5.4 G/DL (6.4-8.2); VANCOMYCIN,TROUGH 11.4 UG/ML (6.0-14.0); eGFR > 90 ML/MIN
[2022-12-14] MEDS: budesonide 0.5mg/2ml UD nebule IH SCH ×2 (07:31→19:43)
--- NOTE | 2022-12-14 11:52 | NUR ---
Yordy Consult: Pt Yordy 10 w/ lathayx open area, large scab L foot, and R arm skin tears pending WOC assessment per EMR. Will monitor for WOC assessment and nutrition intervention needs. Noted pt on carb controlled/EC7 diet per DRUG ABUSE COUNSELOR/DO recs w/ last A1C 5.6% September 22. FLORINDA paged DO regarding cancelling carb controlled diet changing to heart healthy/EC7. DO TC; is agreeable to diet changes. Addendum: 12/14/22 at [address] Amended: Links added.
[2022-12-14] MEDS: clonazePAM 0.5mg tablet PO PRN (13:11)
[2022-12-14] MEDS: fluconazole-Diflucan 200mg/NS 100 ML IV SCH (13:12)
--- NOTE | 2022-12-14 13:27 | NUR ---
pt had accused me of not admin her iv morphine during wound care, and the morphine is not due until 1443, i told the patient that i did and that i have a witness woc nurse who was at the bedside that witnessed me admin her iv morphine due to the amount of pain that woc was causing the patient, continue to educate and monitor pt
[2022-12-14] MEDS ORDERED: metoprolol tartrate 1mg/ml inj IV SCH (13:35)
--- NOTE | 2022-12-14 13:58 | NUR ---
PAGER ID: [phone] MESSAGE: ZURDO ON TELE, PATIENT BP IN 3022 IS 90/60, DONT WANT TO BOTTOM OUT WITH LOPRESSOR MAKENZIE
--- NOTE | 2022-12-14 15:00 | NUR ---
PRESSURE ULCER EDUCATION: DEFINITION: A pressure ulcer is an area of skin that breaks down when you stay in one position too long. The constant pressure against the skin reduces the blood flow to that area and the affected tissue dies. CAUSES: "Being bedridden or in a wheelchair "Fragile skin "Having a chronic condition, such as diabetes or vascular disease "Inability to move certain parts of your body without assistance "Older age "Incontinence of urine or stool SYMPTOMS: "A reddened area that DOES NOT turn white when pressed on - this can be the beginning of a pressure ulcer "A blister, deep sore or a crater - these can be advanced pressure ulcers FIRST AID: "Relieve the pressure on this area "Keep the area clean and dry "Call your primary doctor if you see any of the above symptoms "DO NOT massage the area "DO NOT use a donut shaped or ring shaped pillow- these actually interfere with the blood flow and cause complications PREVENTION: "Check for pressure ulcers everyday "Change position at least every two hours to relieve pressure "Use items that help relieve pressure- pillows, sheepskin, foam padding, and powders. "Keep skin clean and dry "Eat healthy well balanced meals "Exercise daily IF YOU SEE ANY OF THESE SYMPTOMS WHILE IN THE HOSPITAL - TELL YOUR NURSE IMMEDIATELY. IF YOU SEE ANY OF THESE SYMPTOMS WHILE AT HOME OR HAVE ANY QUESTIONS OR CONCERNS ABOUT PRESSURE ULCERS - CALL YOUR PRIMARY DOCTOR IMMEDIATELY. Addendum: 12/14/22 at 1500 by Dary Livingston LVN Amended: Links added.
[2022-12-14] MEDS: piperacillin/tazo 4.5gm/100ml 100 ML IV SCH (16:05)
--- NOTE | 2022-12-14 16:31 | NUR ---
sent a page to hospitalist in regards to woc nurse suggestion of changing patient's diet to clear liquid because of her peg tube site leaking and that the leakage is from the site that is tunneled all the way to her stomach and that according to woc nurse all that patient eats will leak from stomach out of hole onto skin making her wound worse therefore, according to woc nurse clear liquid diet would less harsh on wound, no new orders at this time
--- NOTE | 2022-12-14 17:25 | NUR ---
pt again accused me of not admin her iv pain medications, and i reminded her that her visitor was a witness to me admin her pain medication and confirmed that i was admin pain medication due to the patient's elevated pain level, continue to remind patient about how her medication is prescribed
[2022-12-14 18:00] VITALS: BP 106/75
[2022-12-14] MEDS: lactose-reduced food (Ensure Enlive) - 237ml bottle PO SCH (18:00)
--- NOTE | 2022-12-14 18:19 | NUR ---
gave report to renu berger
[2022-12-14] MEDS: nystatin 15 GM powder TP SCH (20:01)
[2022-12-14] MEDS: VANCOmycin 1250MG/NS 250ml Bag 250 ML IV SCH (20:05)
[2022-12-14] MEDS: metoprolol tartrate 50mg tablet PO SCH (20:18)
[2022-12-14 23:00] VITALS: BP 100/68
[2022-12-15] VITALS (20 sets, daily range): BP systolic 99–137; BP diastolic 57–90
[2022-12-15] MEDS: gabapentin 400mg capsule PO SCH ×4 (00:40→23:52)
[2022-12-15] MEDS: piperacillin/tazo 4.5gm/100ml 100 ML IV SCH ×3 (00:40→16:00)
[2022-12-15] MEDS: morphine 2 MG/ML inj. syringe IV PRN ×5 (00:50→23:54)
[2022-12-15] MEDS: ipratropium/albuterol 3ml nebule NEB SCH ×4 (03:47→20:16)
[2022-12-15] MEDS: normal saline 1000ml 1,000 ML IV SCH ×2 (04:59→19:45)
--- NOTE | 2022-12-15 06:15 | NUR ---
Problems reprioritized. Patient report given, questions answered & plan of care reviewed with Maryjane STAUFFER.
[2022-12-15 06:23] LABS: HEMOGLOBIN 10.9 g/dl (12.0-16.0); MEAN CORPUSCULAR VOLUME 92.3 FL (78-98); NEUTROPHILS # (AUTO) 6.4 X10'3 (1.8-7.7); WHITE BLOOD COUNT 8.9 X10'3 (4.5-11.0)
[2022-12-15 06:24] LABS: BASOPHILS # (AUTO) 0.1 X10'3 (0-0.2); BASOPHILS % (AUTO) 0.8 % (0-1); EOSINOPHILS # (AUTO) 0.3 X10'3 (0-0.9); EOSINOPHILS % (AUTO) 3.2 % (0-6); HEMATOCRIT 35.4 % (35.0-45.0); LYMPHOCYTES # (AUTO) 1.4 X10'3 (1.1-4.8); LYMPHOCYTES % (AUTO) 15.6 % (21-51); MEAN CORPUSCULAR HEMOGLOBIN 28.4 PG (27.0-31.0); MEAN CORPUSCULAR HGB CONC 30.7 g/dL (33.0-36.5); MEAN PLATELET VOLUME 6.7 FL (7.4-10.4); MONOCYTES # (AUTO) 0.8 X10'3 (0-0.9); MONOCYTES % (AUTO) 8.8 % (2-12); NEUTROPHILS % (AUTO) 71.6 % (42-75); PLATELET COUNT 367 X10'3 (140-440); RED BLOOD COUNT 3.84 X10'6 (4.20-5.60); RED CELL DISTRIBUTION WIDTH 17.2 % (11.5-14.5)
--- NOTE | 2022-12-15 06:51 | NUR ---
Patient in room PCU 3022. I have received report from Cain and had the opportunity to ask questions and assume patient care.
[2022-12-15 06:54] LABS: ALANINE AMINOTRANSFERASE 13 U/L (12-78); ALBUMIN/GLOBULIN RATIO 0.6 (1.1-1.5); ALKALINE PHOSPHATASE 99 IU/L (46-116); ANION GAP 9 (8-16); ASPARTATE AMINO TRANSFERASE 11 U/L (10-37); BILIRUBIN,TOTAL 0.5 MG/DL (0.1-1.0); BLOOD UREA NITROGEN 11 MG/DL (7-18); BUN/CREATININE RATIO 16.4 (6.6-38.0); CALCIUM 8.6 MG/DL (8.5-10.1); CHLORIDE 107 MMOL/L (99-107); CREATININE 0.67 MG/DL (0.40-0.90); GLUCOSE 128 MG/DL (70-104); POTASSIUM 4.2 MMOL/L (3.5-5.1); SODIUM 141 MMOL/L (135-145); TOTAL CARBON DIOXIDE 25.5 MMOL/L (24-32); TOTAL PROTEIN 5.6 G/DL (6.4-8.2); eGFR 88 ML/MIN
[2022-12-15] MEDS: budesonide 0.5mg/2ml UD nebule IH SCH ×2 (07:50→20:16)
[2022-12-15] MEDS: heparin, porcine 5000 units/ml vial SQ SCH ×2 (08:00→19:34)
[2022-12-15] MEDS: clopidogrel 75mg tablet PO SCH (08:00)
[2022-12-15] MEDS: lactose-reduced food (Ensure Enlive) - 237ml bottle PO SCH ×3 (08:00→18:00)
[2022-12-15] MEDS: VANCOmycin 1250MG/NS 250ml Bag 250 ML IV SCH ×2 (08:27→19:45)
[2022-12-15] MEDS: amiodarone 200mg tablet PO SCH ×2 (08:30→19:35)
[2022-12-15] MEDS: roflumilast 500mcg tablet PO SCH (08:30)
[2022-12-15] MEDS: duloxetine 30mg CAPSULE.DR PO SCH (08:30)
[2022-12-15] MEDS: aspirin 81mg, enteric-coated 1 TAB TABLET.DR PO SCH (08:31)
[2022-12-15] MEDS: guaiFENesin ER 600mg tablet PO SCH ×2 (08:34→19:35)
[2022-12-15] MEDS: topiramate 25mg tablet PO SCH ×2 (08:34→19:36)
[2022-12-15] MEDS: allopurinol 100mg tablet PO SCH (08:34)
[2022-12-15] MEDS: nystatin 15 GM powder TP SCH ×2 (08:35→19:59)
[2022-12-15] MEDS: metoprolol tartrate 50mg tablet PO SCH ×2 (08:41→19:36)
[2022-12-15] MEDS: fluconazole-Diflucan 200mg/NS 100 ML IV SCH (12:23)
[2022-12-15] MEDS ORDERED: BUPIVAcaine 0.5% inj/PF 30 ML ONE (15:09)
[2022-12-15] MEDS ORDERED: dexamethasone sod phosphate 10mg/ml inj ONE (15:38)
[2022-12-15] MEDS ORDERED: neostigmine methylsulfate 1 MG/ML 10ml vial ONE (15:38)
[2022-12-15] MEDS ORDERED: ondansetron/PF 4mg/2ml inj ONE (15:38)
[2022-12-15] MEDS ORDERED: rocuronium 10mg/ml inj IV ONE ×2 (15:38→16:05)
[2022-12-15] MEDS ORDERED: glycopyrrolate 0.2mg/ml inj ONE (15:38)
[2022-12-15] MEDS ORDERED: propofol 10mg/ml 20ml vial IV ONE (15:38)
[2022-12-15] MEDS ORDERED: desflurane 240ml liquid inh. IH ONE (15:38)
[2022-12-15] MEDS ORDERED: fentaNYL /PF 50mcg/ml 5ml ampule ONE (15:51)
[2022-12-15] MEDS ORDERED: midazolam 1 mg/ML 2ml injection ONE (15:51)
[2022-12-15] MEDS ORDERED: LIDOcaine 1%/PF 5ML 10 MG/ML VIAL ONE (16:05)
[2022-12-15] MEDS ORDERED: ePHEDrine 50MG/ML INJ. ONE (16:24)
[2022-12-15] MEDS ORDERED: BUPIVAcaine 0.5% inj/PF 30 ml vial IJ ONE (16:29)
[2022-12-15] MEDS ORDERED: bacitracin 15gm ointment TP ONE (17:22)
[2022-12-15] MEDS ORDERED: sugammadex 200mg/2ml injection IV ONE (17:23)
[2022-12-15] MEDS ORDERED: naloxone 0.4 mg/ml inj IV PRN (17:35)
[2022-12-15] MEDS ORDERED: HYDROcodone/acetaminophen 5mg/325mg tablet PO PRN (17:35)
--- NOTE | 2022-12-15 17:38 | NUR ---
Received from OR via , accompanied by Anesthesiologist TRIP AND OR NURSE and report given by Anesthesiolgist. PT IS DROWSY YET ABLE TO RESPOND TO VERBAL STIMULI. 5 LAP SITES TO ABDOMEN; 4 BANDAIDS AND ONE WITH GAUZE AND TEGADERM. RADIAL PULSES WEAK; PEDIL PULSE ON RT FOOT FOUND WITH DOPPLER, LEFT UNABLE TO LOCATE. TRIPLE LUMEN RT IJ. VSS WITH ST Addendum: 12/15/22 at 1800 by Magdalene Stovall RN Amended: Links added.
[2022-12-15] MEDS ORDERED: ipratropium/albuterol 3ml nebule NEB ONE (17:40)
--- NOTE | 2022-12-15 18:08 | NUR ---
Problems reprioritized. Patient report given, questions answered & plan of care reviewed with Cain.
--- NOTE | 2022-12-15 18:38 | NUR ---
PATIENT TAKEN TO PCU FLOOR WITH TELE BOX ATTACHED ROOM WITH ALL BELONGINGS AND HOOKED UP TO ALL MONITORS IN ROOM AND REPORT GIVEN TO RN WHO HAS TAKEN OVER PATIENT CARE.
[2022-12-15] MEDS: HYDROcodone/acetaminophen 10/325mg tab PO PRN (22:11)
[2022-12-16] MEDS: piperacillin/tazo 4.5gm/100ml 100 ML IV SCH ×4 (00:02→23:50)
[2022-12-16] MEDS: ipratropium/albuterol 3ml nebule NEB SCH ×4 (02:14→20:47)
[2022-12-16 02:31] VITALS: BP 99/69
[2022-12-16] MEDS: HYDROcodone/acetaminophen 10/325mg tab PO PRN ×3 (03:52→21:39)
--- NOTE | 2022-12-16 06:00 | NUR ---
report received from Cain STAUFFER
[2022-12-16] MEDS ORDERED: VANCOMYCIN LEVEL IV ONE (06:30)
--- NOTE | 2022-12-16 06:37 | NUR ---
Problems reprioritized. Patient report given, questions answered & plan of care reviewed with Wendy STAUFFER.
[2022-12-16] MEDS: morphine 2 MG/ML inj. syringe IV PRN ×3 (06:39→16:39)
[2022-12-16 06:56] LABS: BASOPHILS % (AUTO) 0.2 % (0-1); EOSINOPHILS % (AUTO) 0 % (0-6); HEMATOCRIT 33.9 % (35.0-45.0); HEMOGLOBIN 10.3 g/dl (12.0-16.0); LYMPHOCYTES # (AUTO) 0.8 X10'3 (1.1-4.8); LYMPHOCYTES % (AUTO) 10.3 % (21-51); MEAN CORPUSCULAR HEMOGLOBIN 28.5 PG (27.0-31.0); MEAN CORPUSCULAR HGB CONC 30.5 g/dL (33.0-36.5); MEAN CORPUSCULAR VOLUME 93.4 FL (78-98); MEAN PLATELET VOLUME 6.7 FL (7.4-10.4); MONOCYTES # (AUTO) 0.3 X10'3 (0-0.9); MONOCYTES % (AUTO) 3.5 % (2-12); NEUTROPHILS # (AUTO) 6.3 X10'3 (1.8-7.7); PLATELET COUNT 367 X10'3 (140-440); RED BLOOD COUNT 3.63 X10'6 (4.20-5.60); RED CELL DISTRIBUTION WIDTH 17.2 % (11.5-14.5); WHITE BLOOD COUNT 7.4 X10'3 (4.5-11.0)
[2022-12-16 07:04] LABS: ALANINE AMINOTRANSFERASE 12 U/L (12-78); ALBUMIN 1.9 G/DL (3.4-5.0); ALBUMIN/GLOBULIN RATIO 0.5 (1.1-1.5); ALKALINE PHOSPHATASE 90 IU/L (46-116); ANION GAP 10 (8-16); ASPARTATE AMINO TRANSFERASE 8 U/L (10-37); BILIRUBIN,TOTAL 0.5 MG/DL (0.1-1.0); BLOOD UREA NITROGEN 13 MG/DL (7-18); CALCIUM 7.9 MG/DL (8.5-10.1); CHLORIDE 108 MMOL/L (99-107); CREATININE 0.65 MG/DL (0.40-0.90); GLUCOSE 141 MG/DL (70-104); POTASSIUM 4.6 MMOL/L (3.5-5.1); SODIUM 140 MMOL/L (135-145); TOTAL CARBON DIOXIDE 22.2 MMOL/L (24-32); TOTAL PROTEIN 5.5 G/DL (6.4-8.2); eGFR > 90 ML/MIN
[2022-12-16 07:09] LABS: VANCOMYCIN,TROUGH 27.7 UG/ML (6.0-14.0)
[2022-12-16] MEDS: lactose-reduced food (Ensure Enlive) - 237ml bottle PO SCH ×3 (08:00→18:00)
[2022-12-16] MEDS: budesonide 0.5mg/2ml UD nebule IH SCH ×2 (08:22→20:47)
[2022-12-16] MEDS: heparin, porcine 5000 units/ml vial SQ SCH ×2 (09:41→19:52)
[2022-12-16] MEDS: clopidogrel 75mg tablet PO SCH (09:42)
[2022-12-16] MEDS: guaiFENesin ER 600mg tablet PO SCH ×2 (09:42→19:52)
[2022-12-16] MEDS: aspirin 81mg, enteric-coated 1 TAB TABLET.DR PO SCH (09:42)
[2022-12-16] MEDS: duloxetine 30mg CAPSULE.DR PO SCH (09:42)
[2022-12-16] MEDS: roflumilast 500mcg tablet PO SCH (09:42)
[2022-12-16] MEDS: gabapentin 400mg capsule PO SCH ×3 (09:43→23:50)
[2022-12-16] MEDS: amiodarone 200mg tablet PO SCH ×2 (09:43→19:57)
[2022-12-16] MEDS: topiramate 25mg tablet PO SCH ×2 (09:43→19:53)
[2022-12-16] MEDS: allopurinol 100mg tablet PO SCH (09:43)
[2022-12-16] MEDS: metoprolol tartrate 50mg tablet PO SCH ×2 (09:46→19:56)
[2022-12-16] MEDS: nystatin 15 GM powder TP SCH ×2 (09:47→20:02)
[2022-12-16] MEDS: VANCOMYCIN 750MG IV in NS 250 ML IV SCH ×2 (09:47→21:00)
[2022-12-16 09:48] VITALS: BP 106/80
[2022-12-16] MEDS: normal saline 1000ml 1,000 ML IV SCH ×2 (10:08→23:52)
[2022-12-16] MEDS: clonazePAM 0.5mg tablet PO PRN (10:16)
[2022-12-16] MEDS: fluconazole-Diflucan 200mg/NS 100 ML IV SCH (12:25)
[2022-12-16] MEDS ORDERED: furosemide 20 MG/2 ML vial IV ONE (12:55)
--- NOTE | 2022-12-16 19:37 | NUR ---
Patient in bed with the head of the bed elevated to semi fowlers position. patient watching TV. Call light within reach and all personal belongings within reach
[2022-12-17] MEDS: HYDROcodone/acetaminophen 5mg/325mg tablet PO PRN (01:09)
[2022-12-17 03:00] VITALS: BP 110/65
[2022-12-17] MEDS: ipratropium/albuterol 3ml nebule NEB SCH ×4 (03:09→20:26)
--- NOTE | 2022-12-17 05:08 | NUR ---
Patient in bed with the head of the bed in a semi-auguste position. Patient is resting with her eyes closed. Patient has no signs or symptoms of distress. Call light within reach and all personal belongings within reach
[2022-12-17 06:00] VITALS: BP 108/65
--- NOTE | 2022-12-17 06:00 | NUR ---
report received from Mk STAUFFER
[2022-12-17 06:48] LABS: BASOPHILS % (AUTO) 0.5 % (0-1); EOSINOPHILS # (AUTO) 0.2 X10'3 (0-0.9); EOSINOPHILS % (AUTO) 2.6 % (0-6); LYMPHOCYTES # (AUTO) 1.8 X10'3 (1.1-4.8); LYMPHOCYTES % (AUTO) 19.9 % (21-51); MEAN PLATELET VOLUME 6.6 FL (7.4-10.4); MONOCYTES # (AUTO) 0.9 X10'3 (0-0.9); MONOCYTES % (AUTO) 9.5 % (2-12); NEUTROPHILS # (AUTO) 6.2 X10'3 (1.8-7.7); NEUTROPHILS % (AUTO) 67.5 % (42-75); PLATELET COUNT 377 X10'3 (140-440); WHITE BLOOD COUNT 9.1 X10'3 (4.5-11.0)
[2022-12-17 07:13] LABS: ALANINE AMINOTRANSFERASE 11 U/L (12-78); ALBUMIN/GLOBULIN RATIO 0.6 (1.1-1.5); ALKALINE PHOSPHATASE 84 IU/L (46-116); ANION GAP 6 (8-16); ASPARTATE AMINO TRANSFERASE 14 U/L (10-37); BILIRUBIN,TOTAL 0.3 MG/DL (0.1-1.0); BLOOD UREA NITROGEN 11 MG/DL (7-18); BUN/CREATININE RATIO 16.4 (6.6-38.0); CALCIUM 8.1 MG/DL (8.5-10.1); CHLORIDE 109 MMOL/L (99-107); CREATININE 0.67 MG/DL (0.40-0.90); GLUCOSE 114 MG/DL (70-104); POTASSIUM 4.1 MMOL/L (3.5-5.1); SODIUM 140 MMOL/L (135-145); TOTAL CARBON DIOXIDE 25.4 MMOL/L (24-32); TOTAL PROTEIN 5.4 G/DL (6.4-8.2); eGFR 88 ML/MIN
[2022-12-17 07:58] LABS: HEMATOCRIT 34.7 % (35.0-45.0); HEMOGLOBIN 10.8 g/dl (12.0-16.0); RED BLOOD COUNT 3.86 X10'6 (4.20-5.60)
[2022-12-17 07:59] LABS: MEAN CORPUSCULAR HGB CONC 31.1 g/dL (33.0-36.5); RED CELL DISTRIBUTION WIDTH 16.8 % (11.5-14.5)
[2022-12-17] MEDS: lactose-reduced food (Ensure Enlive) - 237ml bottle PO SCH ×3 (08:00→18:00)
[2022-12-17] MEDS: VANCOMYCIN 750MG IV in NS 250 ML IV SCH (08:17)
[2022-12-17] MEDS: gabapentin 400mg capsule PO SCH ×2 (08:17→16:42)
[2022-12-17] MEDS: piperacillin/tazo 4.5gm/100ml 100 ML IV SCH (08:17)
[2022-12-17] MEDS: clopidogrel 75mg tablet PO SCH (08:18)
[2022-12-17] MEDS: topiramate 25mg tablet PO SCH ×2 (08:18→19:29)
[2022-12-17] MEDS: guaiFENesin ER 600mg tablet PO SCH ×2 (08:18→19:28)
[2022-12-17] MEDS: roflumilast 500mcg tablet PO SCH (08:18)
[2022-12-17] MEDS: aspirin 81mg, enteric-coated 1 TAB TABLET.DR PO SCH (08:18)
[2022-12-17] MEDS: allopurinol 100mg tablet PO SCH (08:18)
[2022-12-17] MEDS: furosemide 20 MG/2 ML vial IV SCH (08:19)
[2022-12-17] MEDS: heparin, porcine 5000 units/ml vial SQ SCH (08:19)
[2022-12-17] MEDS: amiodarone 200mg tablet PO SCH ×2 (08:19→19:28)
[2022-12-17] MEDS: metoprolol tartrate 50mg tablet PO SCH ×2 (08:20→20:00)
[2022-12-17] MEDS: nystatin 15 GM powder TP SCH ×2 (08:21→20:00)
[2022-12-17] MEDS: morphine 2 MG/ML inj. syringe IV PRN ×2 (08:25→15:01)
[2022-12-17] MEDS: duloxetine 30mg CAPSULE.DR PO SCH (08:44)
[2022-12-17] MEDS: clonazePAM 0.5mg tablet PO PRN (08:44)
[2022-12-17] MEDS: budesonide 0.5mg/2ml UD nebule IH SCH ×2 (09:46→20:26)
--- NOTE | 2022-12-17 10:06 | NUR ---
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 Pt PO ~63% avg initial heart healthy/EC7 meals 12/14 meeting protein and ~88% kcal minimum estimated needs though now on clear liquids s/p OR 12/15 for lap closure of PEG site per EMR. PO 100% first clear liquids yesterday overall partially meeting estimated needs given NPO vs restrictive diets this admit. Noted Ensure Enlive ordered in EMR w/ documented intake 12/16 WB however error since ONS not sent by kitchen given clear liquids restriction. Per [facility] note, pt w/ unstageable PI to coccyx; limited interventions at this time. LBM 12/14 per EMR; would benefit from routine bowel regimen this admit. If initial PO trends persist w/ return to solids diet Ensure no longer indicated and Ganga smoothie BID would be more appropriate. Will continue to follow. Rec: 1. return to heart healthy/EC7 diet as medically indicated 2. Ensure Enlive TID per MD substituted w/ Ensure Plus High Protein TIDWM given Enlive shortage 3. IF initial PO trends persist once advanced to solids cancel Ensure Enlive and change to Ganga smoothie BIDBD to better meet needs 4. MVI supplementation per physician discretion 5. routine bowel care this admit 6. scaled wt this admit; subsequent weekly wts Addendum: 12/17/22 at [address] Amended: Links added.
[2022-12-17] MEDS: HYDROcodone/acetaminophen 10/325mg tab PO PRN (11:50)
[2022-12-17] MEDS: fluconazole-Diflucan 200mg/NS 100 ML IV SCH (11:57)
[2022-12-17 15:00] VITALS: BP 101/69
--- NOTE | 2022-12-17 18:25 | NUR ---
report given to Mk STAUFFER
--- NOTE | 2022-12-17 18:51 | NUR ---
Patient in bed with the head of the bed elevated to semi-fowlers position watching TV. Call light within reach and patient and all personal belongings
[2022-12-17] MEDS: apixaban 5mg tablet PO SCH (19:28)
[2022-12-17] MEDS ORDERED: VANCOMYCIN LEVEL IV ONE (20:30)
--- NOTE | 2022-12-17 23:58 | NUR ---
Pharmacy messaged that this patient vanco trough was 25.2
[2022-12-18] MEDS: HYDROcodone/acetaminophen 10/325mg tab PO PRN ×4 (02:17→16:32)
[2022-12-18] MEDS: ipratropium/albuterol 3ml nebule NEB SCH ×4 (02:53→22:13)
[2022-12-18 03:00] VITALS: BP 110/68
[2022-12-18 06:00] VITALS: BP 107/73
--- NOTE | 2022-12-18 06:12 | NUR ---
Patient in bed with the head of the bed in a semi-fowlers position resting with her eyes closed. Patient has no signs or symptoms of ditress, call light within reach of patient and all of her personal belongings
[2022-12-18] MEDS: budesonide 0.5mg/2ml UD nebule IH SCH ×2 (07:34→22:13)
[2022-12-18] MEDS: lactose-reduced food (Ensure Enlive) - 237ml bottle PO SCH ×3 (08:00→18:00)
[2022-12-18] MEDS: nystatin 15 GM powder TP SCH ×2 (08:03→20:00)
[2022-12-18] MEDS: gabapentin 400mg capsule PO SCH ×3 (08:04→15:47)
[2022-12-18] MEDS: roflumilast 500mcg tablet PO SCH (08:04)
[2022-12-18] MEDS: aspirin 81mg, enteric-coated 1 TAB TABLET.DR PO SCH (08:04)
[2022-12-18] MEDS: furosemide 20 MG/2 ML vial IV SCH (08:04)
[2022-12-18] MEDS: allopurinol 100mg tablet PO SCH (08:04)
[2022-12-18] MEDS: guaiFENesin ER 600mg tablet PO SCH ×2 (08:05→19:54)
[2022-12-18] MEDS: topiramate 25mg tablet PO SCH ×2 (08:05→19:54)
[2022-12-18] MEDS: clopidogrel 75mg tablet PO SCH (08:05)
[2022-12-18] MEDS: amiodarone 200mg tablet PO SCH ×2 (08:05→19:54)
[2022-12-18] MEDS: duloxetine 30mg CAPSULE.DR PO SCH (08:05)
[2022-12-18] MEDS: metoprolol tartrate 50mg tablet PO SCH ×2 (08:06→19:55)
[2022-12-18] MEDS: apixaban 5mg tablet PO SCH ×2 (08:06→19:54)
[2022-12-18] MEDS: morphine 2 MG/ML inj. syringe IV PRN ×2 (09:33→14:58)
[2022-12-18] MEDS: magnesium hydroxide 30ml (MOM) UD suspension PO SCH ×2 (09:50→19:54)
[2022-12-18] MEDS: docusate sod 100mg capsule PO SCH ×2 (09:50→19:54)
[2022-12-18] MEDS: VANCOMYCIN 750MG IV in NS 250 ML IV SCH (09:51)
[2022-12-18 10:00] VITALS: BP 102/72
[2022-12-18] MEDS ORDERED: HYDROcodone/acetaminophen 10/325mg tab PO ONE (12:30)
[2022-12-18 14:00] VITALS: BP 87/62
--- NOTE | 2022-12-18 15:01 | NUR ---
Called Dr. Solo about low systolic. He okayed morphine
--- NOTE | 2022-12-18 18:54 | NUR ---
Patient alert and oriented times 4. Patient denies pain. Call light within reach and all other personal belongings within reach
[2022-12-18] MEDS: HYDROcodone/acetaminophen 5mg/325mg tablet PO PRN (20:38)
[2022-12-19] MEDS: HYDROcodone/acetaminophen 10/325mg tab PO PRN ×3 (01:22→23:08)
[2022-12-19] MEDS: gabapentin 400mg capsule PO SCH ×3 (01:22→16:53)
[2022-12-19] MEDS: ipratropium/albuterol 3ml nebule NEB SCH ×4 (02:00→19:48)
[2022-12-19 03:00] VITALS: BP 96/60
[2022-12-19 06:00] VITALS: BP 102/62
--- NOTE | 2022-12-19 06:22 | NUR ---
end of shift report given to EH Osei endorsed to follow up with general surgeon, patient has not had a bowel movement
--- NOTE | 2022-12-19 06:51 | NUR ---
Patient in room PCU 3022. I have received report from Inna STAUFFER and had the opportunity to ask questions and assume patient care. Pt is sitting high fowlers in bed. Pt on 3L NC. No s/s of distress. Pt declines c/o pain at this time. BLL, call light within reach, frequwently used items in reach, frequent rounding, polymer scientist socks on. Will continue to monitor.
[2022-12-19] MEDS: morphine 2 MG/ML inj. syringe IV PRN ×3 (07:44→17:57)
[2022-12-19] MEDS: apixaban 5mg tablet PO SCH ×2 (07:45→18:57)
[2022-12-19] MEDS: guaiFENesin ER 600mg tablet PO SCH ×2 (07:45→18:56)
[2022-12-19] MEDS: aspirin 81mg, enteric-coated 1 TAB TABLET.DR PO SCH (07:45)
[2022-12-19] MEDS: magnesium hydroxide 30ml (MOM) UD suspension PO SCH ×2 (07:45→20:00)
[2022-12-19] MEDS: clopidogrel 75mg tablet PO SCH (07:45)
[2022-12-19] MEDS: roflumilast 500mcg tablet PO SCH (07:46)
[2022-12-19] MEDS: amiodarone 200mg tablet PO SCH ×2 (07:46→20:00)
[2022-12-19] MEDS: docusate sod 100mg capsule PO SCH ×2 (07:46→18:56)
[2022-12-19] MEDS: furosemide 20 MG/2 ML vial IV SCH ×2 (07:47→08:00)
[2022-12-19] MEDS: metoprolol tartrate 50mg tablet PO SCH ×2 (08:00→18:57)
[2022-12-19] MEDS: lactose-reduced food (Ensure Enlive) - 237ml bottle PO SCH ×5 (08:00→23:10)
[2022-12-19] MEDS: nystatin 15 GM powder TP SCH ×2 (08:00→20:00)
[2022-12-19] MEDS: allopurinol 100mg tablet PO SCH (08:05)
[2022-12-19] MEDS: topiramate 25mg tablet PO SCH ×2 (08:05→18:57)
[2022-12-19] MEDS: duloxetine 30mg CAPSULE.DR PO SCH (08:05)
[2022-12-19] MEDS: budesonide 0.5mg/2ml UD nebule IH SCH ×2 (08:13→19:48)
[2022-12-19] MEDS: VANCOMYCIN 750MG IV in NS 250 ML IV SCH (09:00)
[2022-12-19 11:00] VITALS: BP 94/64
[2022-12-19 14:42] VITALS: BP 115/69
[2022-12-19 18:00] VITALS: BP 106/66
--- NOTE | 2022-12-19 18:17 | NUR ---
Problems reprioritized. Patient report given, questions answered & plan of care reviewed with Inna RN.
--- NOTE | 2022-12-19 18:32 | NUR ---
Patient in bed with the head of the bed elevated to semi-fowlers position. Patient is alert and oriented times 4. call light within reach and all personal belongings within reach.
[2022-12-20 02:00] VITALS: BP 110/63
[2022-12-20] MEDS: ipratropium/albuterol 3ml nebule NEB SCH ×4 (02:59→19:14)
--- NOTE | 2022-12-20 05:59 | NUR ---
Patient in bed with the head of the bed elevated to semi-fowlers osition. Patient resting with no signs or sy,ptoms of distress Addendum: 12/20/22 at 0601 by Mk Lipscomb RN resting with no signs or symptoms of distress. call light within reach of patient and all personal belongings within reach
--- NOTE | 2022-12-20 06:36 | NUR ---
Patient in room PCU 3022. I have received report from Mk STAUFFER and had the opportunity to ask questions and assume patient care.Patient resting in bed in no acute distress.
[2022-12-20 07:00] VITALS: BP 132/74
[2022-12-20] MEDS: guaiFENesin ER 600mg tablet PO SCH ×2 (08:00→20:07)
[2022-12-20] MEDS: furosemide 20 MG/2 ML vial IV SCH ×2 (08:00→15:30)
[2022-12-20] MEDS: metoprolol tartrate 50mg tablet PO SCH ×2 (08:00→20:08)
[2022-12-20 08:02] LABS: ANION GAP 6 (8-16); BLOOD UREA NITROGEN 10 MG/DL (7-18); BUN/CREATININE RATIO 15.6 (6.6-38.0); CALCIUM 8.6 MG/DL (8.5-10.1); CHLORIDE 108 MMOL/L (99-107); CREATININE 0.64 MG/DL (0.40-0.90); GLUCOSE 129 MG/DL (70-104); POTASSIUM 3.7 MMOL/L (3.5-5.1); SODIUM 143 MMOL/L (135-145); TOTAL CARBON DIOXIDE 29.1 MMOL/L (24-32); eGFR > 90 ML/MIN
[2022-12-20 08:06] LABS: BASOPHILS # (AUTO) 0.1 X10'3 (0-0.2); BASOPHILS % (AUTO) 0.8 % (0-1); EOSINOPHILS # (AUTO) 0.3 X10'3 (0-0.9); EOSINOPHILS % (AUTO) 3.9 % (0-6); HEMATOCRIT 35.1 % (35.0-45.0); HEMOGLOBIN 10.9 g/dl (12.0-16.0); LYMPHOCYTES % (AUTO) 24.3 % (21-51); MEAN CORPUSCULAR HEMOGLOBIN 28.7 PG (27.0-31.0); MEAN CORPUSCULAR HGB CONC 31.1 g/dL (33.0-36.5); MEAN CORPUSCULAR VOLUME 92.4 FL (78-98); MEAN PLATELET VOLUME 6.7 FL (7.4-10.4); MONOCYTES # (AUTO) 0.8 X10'3 (0-0.9); MONOCYTES % (AUTO) 9.2 % (2-12); NEUTROPHILS % (AUTO) 61.8 % (42-75); PLATELET COUNT 336 X10'3 (140-440); RED BLOOD COUNT 3.79 X10'6 (4.20-5.60); RED CELL DISTRIBUTION WIDTH 17.5 % (11.5-14.5); WHITE BLOOD COUNT 8.1 X10'3 (4.5-11.0)
[2022-12-20] MEDS: budesonide 0.5mg/2ml UD nebule IH SCH ×2 (08:23→19:14)
[2022-12-20] MEDS: morphine 2 MG/ML inj. syringe IV PRN ×2 (09:10→14:14)
[2022-12-20 09:50] VITALS: BP 89/59
[2022-12-20] MEDS: duloxetine 30mg CAPSULE.DR PO SCH (10:05)
[2022-12-20] MEDS: docusate sod 100mg capsule PO SCH ×2 (10:05→20:08)
[2022-12-20] MEDS: magnesium hydroxide 30ml (MOM) UD suspension PO SCH ×2 (10:06→20:00)
[2022-12-20] MEDS: gabapentin 400mg capsule PO SCH ×3 (10:06→15:30)
[2022-12-20] MEDS: roflumilast 500mcg tablet PO SCH (10:06)
[2022-12-20] MEDS: allopurinol 100mg tablet PO SCH (10:06)
[2022-12-20] MEDS: apixaban 5mg tablet PO SCH ×2 (10:07→20:08)
[2022-12-20] MEDS: aspirin 81mg, enteric-coated 1 TAB TABLET.DR PO SCH (10:07)
[2022-12-20] MEDS: topiramate 25mg tablet PO SCH ×2 (10:07→20:08)
[2022-12-20] MEDS: amiodarone 200mg tablet PO SCH ×2 (10:07→20:00)
[2022-12-20] MEDS: nystatin 15 GM powder TP SCH ×2 (10:08→20:09)
[2022-12-20] MEDS: VANCOMYCIN 750MG IV in NS 250 ML IV SCH (10:12)
[2022-12-20] MEDS: clopidogrel 75mg tablet PO SCH (10:13)
[2022-12-20 11:00] VITALS: BP 100/71
[2022-12-20] MEDS: HYDROcodone/acetaminophen 10/325mg tab PO PRN ×2 (12:30→20:07)
--- NOTE | 2022-12-20 14:18 | NUR ---
hr 115 rr 16 bp 127/81 at time of morphine admin
[2022-12-20 15:00] VITALS: BP 106/79
[2022-12-20] MEDS: lactose-reduced food (Ensure Enlive) - 237ml bottle PO SCH (18:00)
--- NOTE | 2022-12-20 19:12 | NUR ---
Problems reprioritized. Patient report given, questions answered & plan of care reviewed with Mk STAUFFER.
[2022-12-21] MEDS: ipratropium/albuterol 3ml nebule NEB SCH ×4 (02:56→19:45)
[2022-12-21] MEDS: HYDROcodone/acetaminophen 10/325mg tab PO PRN ×4 (04:30→20:12)
--- NOTE | 2022-12-21 05:48 | NUR ---
patient in bed with the head of the bed in a high-fowlers position patient denies pain. Call light within reach and all personal belongings within reach
--- NOTE | 2022-12-21 06:25 | NUR ---
Patient in room PCU 3022. I have received report from Mk STAUFFER and had the opportunity to ask questions and assume patient care. Patient sleeping in bed in no acute distress.
[2022-12-21 07:00] VITALS: BP 114/65
[2022-12-21] MEDS: lactose-reduced food (Ensure Enlive) - 237ml bottle PO SCH ×4 (08:00→19:00)
[2022-12-21] MEDS: docusate sod 100mg capsule PO SCH ×2 (08:17→20:14)
[2022-12-21] MEDS: metoprolol tartrate 50mg tablet PO SCH ×2 (08:18→20:11)
[2022-12-21] MEDS: guaiFENesin ER 600mg tablet PO SCH ×2 (08:18→20:11)
[2022-12-21] MEDS: duloxetine 30mg CAPSULE.DR PO SCH (08:19)
[2022-12-21] MEDS: aspirin 81mg, enteric-coated 1 TAB TABLET.DR PO SCH (08:19)
[2022-12-21] MEDS: amiodarone 200mg tablet PO SCH ×2 (08:19→20:10)
[2022-12-21] MEDS: allopurinol 100mg tablet PO SCH (08:19)
[2022-12-21] MEDS: gabapentin 400mg capsule PO SCH ×3 (08:19→17:12)
[2022-12-21] MEDS: roflumilast 500mcg tablet PO SCH (08:19)
[2022-12-21] MEDS: clopidogrel 75mg tablet PO SCH (08:19)
[2022-12-21] MEDS: magnesium hydroxide 30ml (MOM) UD suspension PO SCH ×2 (08:20→20:10)
[2022-12-21] MEDS: topiramate 25mg tablet PO SCH ×2 (08:20→20:11)
[2022-12-21] MEDS: apixaban 5mg tablet PO SCH ×2 (08:20→20:11)
[2022-12-21] MEDS: furosemide 20 MG/2 ML vial IV SCH (08:20)
[2022-12-21] MEDS: nystatin 15 GM powder TP SCH ×2 (08:21→20:14)
[2022-12-21] MEDS ORDERED: VANCOMYCIN LEVEL IV ONE (08:30)
[2022-12-21] MEDS: VANCOMYCIN 750MG IV in NS 250 ML IV SCH (09:06)
[2022-12-21 09:16] LABS: BASOPHILS # (AUTO) 0.1 X10'3 (0-0.2); BASOPHILS % (AUTO) 0.7 % (0-1); EOSINOPHILS # (AUTO) 0.4 X10'3 (0-0.9); EOSINOPHILS % (AUTO) 3.7 % (0-6); HEMATOCRIT 37.7 % (35.0-45.0); HEMOGLOBIN 11.6 g/dl (12.0-16.0); LYMPHOCYTES % (AUTO) 18.5 % (21-51); MEAN CORPUSCULAR HEMOGLOBIN 28.8 PG (27.0-31.0); MEAN CORPUSCULAR HGB CONC 30.8 g/dL (33.0-36.5); MEAN CORPUSCULAR VOLUME 93.4 FL (78-98); MONOCYTES # (AUTO) 0.7 X10'3 (0-0.9); MONOCYTES % (AUTO) 6.7 % (2-12); NEUTROPHILS # (AUTO) 7.5 X10'3 (1.8-7.7); NEUTROPHILS % (AUTO) 70.4 % (42-75); PLATELET COUNT 342 X10'3 (140-440); RED BLOOD COUNT 4.03 X10'6 (4.20-5.60); WHITE BLOOD COUNT 10.7 X10'3 (4.5-11.0)
[2022-12-21] MEDS: budesonide 0.5mg/2ml UD nebule IH SCH ×2 (09:25→19:45)
[2022-12-21 09:35] LABS: ALANINE AMINOTRANSFERASE 14 U/L (12-78); ALBUMIN 1.9 G/DL (3.4-5.0); ALBUMIN/GLOBULIN RATIO 0.5 (1.1-1.5); ALKALINE PHOSPHATASE 119 IU/L (46-116); ANION GAP 5 (8-16); ASPARTATE AMINO TRANSFERASE 17 U/L (10-37); BILIRUBIN,TOTAL 0.3 MG/DL (0.1-1.0); BLOOD UREA NITROGEN 12 MG/DL (7-18); BUN/CREATININE RATIO 18.2 (6.6-38.0); CALCIUM 8.5 MG/DL (8.5-10.1); CHLORIDE 106 MMOL/L (99-107); CREATININE 0.66 MG/DL (0.40-0.90); GLUCOSE 155 MG/DL (70-104); POTASSIUM 3.9 MMOL/L (3.5-5.1); SODIUM 142 MMOL/L (135-145); TOTAL CARBON DIOXIDE 31.2 MMOL/L (24-32); TOTAL PROTEIN 5.8 G/DL (6.4-8.2); VANCOMYCIN,TROUGH 10.9 UG/ML (6.0-14.0); eGFR 90 ML/MIN
[2022-12-21 11:00] VITALS: BP 106/67
--- NOTE | 2022-12-21 11:24 | NUR ---
Reassessment: Patient's diet was advanced to regular at lunch 12/15 and pt with average 50% PO intake not fully meeting estimated nutrient needs. D/w dietary to send soft to chew foods per ST recs. Now that pt is on a regular diet pt can receive ONS TID per rx, though will send Ensure Plus HP as sub for Ensure Enlive d/t product shortage. Pt to receive first ONS and soft to chew food starting lunch today. Per MD note abdominal wound is healing well. LBM 12/19. Routine Colace BID and MoM BID added to med list 12/18. Will continue to follow and monitor need for additional nutrition intervention pending trends in PO intake with texture modification and ONS acceptance. Recommendations: 1. Continue regular diet; soft to chew per ST recs (added lunch 12/21) 2. Ensure Enlive TID per MD, substituted with Ensure Plus High Protein given Enlive shortage (ONS to be sent starting lunch 12/21) 3. Monitor need for ONS change to Ganga BIDBD 4. MVI supplementation per physician discretion 5. Routine bowel care 6. Scaled wt this admit; subsequent weekly scaled wts Addendum: 12/21/22 at [address] Amended: Links added.
[2022-12-21 15:00] VITALS: BP 96/68
--- NOTE | 2022-12-21 16:07 | NUR ---
per telephone order by Dr. Karan padilla to remove neena and replace with steri strips
--- NOTE | 2022-12-21 16:46 | NUR ---
neena removed , steri strips applied , no complications
--- NOTE | 2022-12-21 16:47 | NUR ---
patient has tegaderm over skin tears placed by [facility] last week. No orders for wound care .
[2022-12-21 18:00] VITALS: BP 105/74
--- NOTE | 2022-12-21 18:52 | NUR ---
Problems reprioritized. Patient report given, questions answered & plan of care reviewed with Mk STAUFFER.
--- NOTE | 2022-12-21 18:57 | NUR ---
Patient c/o being left on bed nails by aide after being giving gabapentin at 1700. I was un aware patient was on bedpan and not aware light was on. Patient backside inspected and no additional skin breakdown noted from time when i did wound care and took pics at 1616. Patient c/o pain and noc RN told patient she would be back with her nornv
[2022-12-22] MEDS: gabapentin 400mg capsule PO SCH ×3 (01:01→15:23)
[2022-12-22] MEDS: HYDROcodone/acetaminophen 5mg/325mg tablet PO PRN (01:01)
[2022-12-22 03:00] VITALS: BP 110/68
[2022-12-22] MEDS: ipratropium/albuterol 3ml nebule NEB SCH ×4 (03:45→20:38)
--- NOTE | 2022-12-22 06:11 | NUR ---
Patient in bed with the head of the bed in a high-fowlers position. Patient has no signs or symptoms of distress. Call light within reach and all personal belongings within reach
[2022-12-22] MEDS: HYDROcodone/acetaminophen 10/325mg tab PO PRN ×3 (06:59→19:37)
[2022-12-22] MEDS: magnesium hydroxide 30ml (MOM) UD suspension PO SCH ×2 (08:00→19:37)
[2022-12-22 08:24] LABS: BASOPHILS # (AUTO) 0.1 X10'3 (0-0.2); BASOPHILS % (AUTO) 0.6 % (0-1); EOSINOPHILS # (AUTO) 0.4 X10'3 (0-0.9); EOSINOPHILS % (AUTO) 3.6 % (0-6); LYMPHOCYTES # (AUTO) 2.1 X10'3 (1.1-4.8); LYMPHOCYTES % (AUTO) 19.2 % (21-51); MEAN PLATELET VOLUME 6.8 FL (7.4-10.4); MONOCYTES # (AUTO) 0.8 X10'3 (0-0.9); MONOCYTES % (AUTO) 7.4 % (2-12); NEUTROPHILS # (AUTO) 7.4 X10'3 (1.8-7.7); NEUTROPHILS % (AUTO) 69.2 % (42-75); PLATELET COUNT 347 X10'3 (140-440); WHITE BLOOD COUNT 10.7 X10'3 (4.5-11.0)
[2022-12-22 08:30] LABS: ALBUMIN 1.8 G/DL (3.4-5.0); ANION GAP 9 (8-16); BLOOD UREA NITROGEN 13 MG/DL (7-18); BUN/CREATININE RATIO 18.3 (6.6-38.0); CALCIUM 8.4 MG/DL (8.5-10.1); CHLORIDE 104 MMOL/L (99-107); CREATININE 0.71 MG/DL (0.40-0.90); GLUCOSE 122 MG/DL (70-104); POTASSIUM 3.9 MMOL/L (3.5-5.1); SODIUM 143 MMOL/L (135-145); TOTAL CARBON DIOXIDE 30.1 MMOL/L (24-32); eGFR 82 ML/MIN
[2022-12-22] MEDS: furosemide 20 MG/2 ML vial IV SCH (08:43)
[2022-12-22] MEDS: amiodarone 200mg tablet PO SCH ×2 (08:43→19:36)
[2022-12-22] MEDS: guaiFENesin ER 600mg tablet PO SCH ×2 (08:43→19:35)
[2022-12-22] MEDS: aspirin 81mg, enteric-coated 1 TAB TABLET.DR PO SCH (08:44)
[2022-12-22] MEDS: allopurinol 100mg tablet PO SCH (08:44)
[2022-12-22] MEDS: apixaban 5mg tablet PO SCH ×2 (08:44→19:35)
[2022-12-22] MEDS: roflumilast 500mcg tablet PO SCH (08:44)
[2022-12-22] MEDS: clopidogrel 75mg tablet PO SCH (08:44)
[2022-12-22] MEDS: duloxetine 30mg CAPSULE.DR PO SCH (08:44)
[2022-12-22] MEDS: topiramate 25mg tablet PO SCH ×2 (08:45→19:36)
[2022-12-22] MEDS: metoprolol tartrate 50mg tablet PO SCH ×2 (08:45→19:36)
[2022-12-22] MEDS: docusate sod 100mg capsule PO SCH ×2 (08:45→20:00)
[2022-12-22] MEDS: nystatin 15 GM powder TP SCH ×2 (08:46→20:00)
[2022-12-22] MEDS: vancomycin/NS 1 GM ADD-VANTAGE 250 ML IV SCH (08:46)
[2022-12-22 08:47] LABS: HEMATOCRIT 36.7 % (35.0-45.0); HEMOGLOBIN 11.8 g/dl (12.0-16.0); MEAN CORPUSCULAR HGB CONC 32.2 g/dL (33.0-36.5); MEAN CORPUSCULAR VOLUME 90.1 FL (78-98); RED BLOOD COUNT 4.07 X10'6 (4.20-5.60); RED CELL DISTRIBUTION WIDTH 17.3 % (11.5-14.5)
[2022-12-22] MEDS: budesonide 0.5mg/2ml UD nebule IH SCH ×2 (09:01→20:38)
[2022-12-22 11:00] VITALS: BP 105/71
[2022-12-22 15:00] VITALS: BP 88/62
[2022-12-22 18:00] VITALS: BP 137/79
--- NOTE | 2022-12-22 18:44 | NUR ---
Patient in bed with the head of the bed elevated to a semi-fowlers position. Patient has no signs or symptoms of distress. Call light within reach and all personal belongings within.
[2022-12-23] MEDS: ipratropium/albuterol 3ml nebule NEB SCH ×3 (02:20→14:00)
[2022-12-23] MEDS: HYDROcodone/acetaminophen 10/325mg tab PO PRN ×3 (02:34→14:35)
[2022-12-23 03:00] VITALS: BP 135/72
[2022-12-23 06:00] VITALS: BP 107/63
--- NOTE | 2022-12-23 06:11 | NUR ---
Patient in bed with the head of the bed in a high-fowlers position. Patient has no signs or symptoms of distress. call light within reach and all personal belongings within reach
[2022-12-23] MEDS: docusate sod 100mg capsule PO SCH (08:00)
[2022-12-23] MEDS: magnesium hydroxide 30ml (MOM) UD suspension PO SCH (08:00)
[2022-12-23] MEDS: vancomycin/NS 1 GM ADD-VANTAGE 250 ML IV SCH (08:23)
[2022-12-23] MEDS: budesonide 0.5mg/2ml UD nebule IH SCH (08:25)
[2022-12-23] MEDS: topiramate 25mg tablet PO SCH (08:28)
[2022-12-23] MEDS: furosemide 20 MG/2 ML vial IV SCH (08:28)
[2022-12-23] MEDS: allopurinol 100mg tablet PO SCH (08:29)
[2022-12-23] MEDS: roflumilast 500mcg tablet PO SCH (08:29)
[2022-12-23] MEDS: metoprolol tartrate 50mg tablet PO SCH (08:29)
[2022-12-23] MEDS: aspirin 81mg, enteric-coated 1 TAB TABLET.DR PO SCH (08:29)
[2022-12-23] MEDS: guaiFENesin ER 600mg tablet PO SCH (08:30)
[2022-12-23] MEDS: clopidogrel 75mg tablet PO SCH (08:30)
[2022-12-23] MEDS: duloxetine 30mg CAPSULE.DR PO SCH (08:30)
[2022-12-23] MEDS: apixaban 5mg tablet PO SCH (08:30)
[2022-12-23] MEDS: gabapentin 400mg capsule PO SCH ×2 (08:30)
[2022-12-23] MEDS: amiodarone 200mg tablet PO SCH (08:30)
[2022-12-23] MEDS: lactose-reduced food (Ensure Enlive) - 237ml bottle PO SCH ×2 (08:32→13:49)
[2022-12-23] MEDS: nystatin 15 GM powder TP SCH (08:32)
[2022-12-23 10:00] VITALS: BP 101/66
[2022-12-23 10:40] LABS: BASOPHILS # (AUTO) 0.1 X10'3 (0-0.2); BASOPHILS % (AUTO) 0.8 % (0-1); EOSINOPHILS # (AUTO) 0.3 X10'3 (0-0.9); EOSINOPHILS % (AUTO) 3.4 % (0-6); LYMPHOCYTES % (AUTO) 19.8 % (21-51); MEAN PLATELET VOLUME 7.2 FL (7.4-10.4); MONOCYTES # (AUTO) 0.6 X10'3 (0-0.9); MONOCYTES % (AUTO) 6.4 % (2-12); NEUTROPHILS # (AUTO) 6.9 X10'3 (1.8-7.7); NEUTROPHILS % (AUTO) 69.6 % (42-75)
[2022-12-23 10:47] LABS: ANION GAP 7 (8-16); BLOOD UREA NITROGEN 14 MG/DL (7-18); BUN/CREATININE RATIO 20.6 (6.6-38.0); CHLORIDE 102 MMOL/L (99-107); CREATININE 0.68 MG/DL (0.40-0.90); GLUCOSE 221 MG/DL (70-104); POTASSIUM 3.6 MMOL/L (3.5-5.1); SODIUM 137 MMOL/L (135-145); TOTAL CARBON DIOXIDE 27.8 MMOL/L (24-32); eGFR 87 ML/MIN
[2022-12-23 11:03] LABS: RED BLOOD COUNT 4.27 X10'6 (4.20-5.60); WHITE BLOOD COUNT 10.5 X10'3 (4.5-11.0)
[2022-12-23 11:04] LABS: HEMATOCRIT 38.9 % (35.0-45.0); HEMOGLOBIN 12.6 g/dl (12.0-16.0); MEAN CORPUSCULAR HEMOGLOBIN 29.4 PG (27.0-31.0); MEAN CORPUSCULAR HGB CONC 32.3 g/dL (33.0-36.5); PLATELET COUNT 357 X10'3 (140-440)
[2022-12-23] MEDS ORDERED: APIX5TAB3 PO (12:10)
[2022-12-23] MEDS ORDERED: GABA-534 PO (12:10)
[2022-12-23] MEDS ORDERED: FURO20TA4 PO (12:10)
[2022-12-25] MEDS ORDERED: VANCOMYCIN LEVEL IV ONE (08:30)
== END 2022-12-23 14:49 | disposition home health service (06) | DRG 710 ==
LOC: ER 15:20 → ED HOLD 20:23 → PCU 3S 12-13 11:23
PROVIDERS: ADMIT Internal Medicine; ATTEND Internal Medicine
PROC: BW211ZZ Computerized Tomography (CT Scan) of Abdomen and Pelvis using Low Osmolar Contrast (ICD-10-PCS; 2022-12-12)
PROC: 02HV33Z Insertion of Infusion Device into Superior Vena Cava, Percutaneous Approach (ICD-10-PCS; 2022-12-12)
PROC: B548ZZA Ultrasonography of Superior Vena Cava, Guidance (ICD-10-PCS; 2022-12-12)
PROC: 0WQF4ZZ Repair Abdominal Wall, Percutaneous Endoscopic Approach (ICD-10-PCS; 2022-12-15)
PROC: 8E0W4CZ Robotic Assisted Procedure of Trunk Region, Percutaneous Endoscopic Approach (ICD-10-PCS; 2022-12-15)
PROC: 0DNW4ZZ Release Peritoneum, Percutaneous Endoscopic Approach (ICD-10-PCS; principal; 2022-12-15 15:38)
DX: A41.9 Sepsis, unspecified organism (principal); K31.6 Fistula of stomach and duodenum; J96.10 Chronic respiratory failure, unspecified whether with hypoxia or hypercapnia; L02.211 Cutaneous abscess of abdominal wall; I50.9 Heart failure, unspecified; I11.0 Hypertensive heart disease with heart failure; I48.91 Unspecified atrial fibrillation; G43.909 Migraine, unspecified, not intractable, without status migrainosus; E11.9 Type 2 diabetes mellitus without complications; L03.311 Cellulitis of abdominal wall; E78.00 Pure hypercholesterolemia, unspecified; J44.9 Chronic obstructive pulmonary disease, unspecified; F32.A Depression, unspecified; K21.9 Gastro-esophageal reflux disease without esophagitis; M54.9 Dorsalgia, unspecified; K66.0 Peritoneal adhesions (postprocedural) (postinfection); G89.4 Chronic pain syndrome; I25.10 Atherosclerotic heart disease of native coronary artery without angina pectoris; I25.2 Old myocardial infarction; Z79.01 Long term (current) use of anticoagulants; Z79.51 Long term (current) use of inhaled steroids; Z79.899 Other long term (current) drug therapy; Z82.49 Family history of ischemic heart disease and other diseases of the circulatory system; Z82.5 Family history of asthma and other chronic lower respiratory diseases; Z87.891 Personal history of nicotine dependence; Z90.710 Acquired absence of both cervix and uterus; Z95.5 Presence of coronary angioplasty implant and graft; Z99.81 Dependence on supplemental oxygen; Z88.8 Allergy status to other drugs, medicaments and biological substances; Z93.0 Tracheostomy status
CPT/HCPCS: 36415; 71045; 74176; 74177; 80048; 80053; 80202; 81001; 82948; 83605; 83880; 84145; 85025; 87040; 87077; 87081; 87088; 87186; 92508; 92616; 93005; 94640; 94760; 97110; 97116; 97162; 97530; 97535; 99285; A4215; A4615; A4618; A4649; A6154; A6196; A6212; A6213; A6222; A6253; A6446; A6449; G0378; J0696; J1100; J1450; J1644; J1815; J1940; J2250; J2270; J2405; J2543; J2704; J2710; J3010; J3370; J3490; J7030; J7040; J7050; Q9963; Q9967; S0020

== ENCOUNTER 2022-12-25 20:27 | Emergency (ER) | payer MEDICAID ==
[~2022-12-25] VITALS: Ht 162.6 cm; Wt 74.5 kg
[~2022-12-25 20:27] MED LIST changes: +ALBU18HF2 INH; -APIX2.5T PO; +APIX5TAB3 PO; -ASPI-611 PO; -BALS60OI TOP; -BUDE10.7 IH; -CIPR-259 PO; -CLON-528 PO; +CLON0.5T4 PO; +CLOP75TA34 PO; -CYCL-1 PO; -DULO30CA52 PO; +ERTU15TA PO; -FLUD0.1T PO; -FLUO40CA10 PO; +FURO20TA4 PO; +GABA-534 PO; -GABA800T11 PO; -INSU100V5 IJ; +IPRA3AMP31 NEB; +METO25TA6 PO; -MIDO5TAB4 PO; -NITR0.4T48 SL; -PRED5TAB49 PO; +ROFL500T7 PO; +TIOT4MIS2 INH
[2022-12-26] MEDS ORDERED: morphine 4 MG/ML inj SYRINge IV ONE (00:35)
--- NOTE | 2022-12-26 01:03 | NUR ---
Roommate: Nano Pollackshaw [phone]
[2022-12-26] MEDS ORDERED: iohexol 300mg/ml 100ml inj. ONE (01:10)
[2022-12-26 02:48] LABS: ALANINE AMINOTRANSFERASE 12 U/L (12-78); ALBUMIN 2.2 G/DL (3.4-5.0); ALBUMIN/GLOBULIN RATIO 0.6 (1.1-1.5); ALKALINE PHOSPHATASE 112 IU/L (46-116); ANION GAP 6 (8-16); ASPARTATE AMINO TRANSFERASE 17 U/L (10-37); BILIRUBIN,TOTAL 0.3 MG/DL (0.1-1.0); BLOOD UREA NITROGEN 10 MG/DL (7-18); BUN/CREATININE RATIO 15.2 (6.6-38.0); CALCIUM 9.3 MG/DL (8.5-10.1); CHLORIDE 106 MMOL/L (99-107); CREATININE 0.66 MG/DL (0.40-0.90); GLUCOSE 91 MG/DL (70-104); POTASSIUM 3.1 MMOL/L (3.5-5.1); SODIUM 144 MMOL/L (135-145); TOTAL CARBON DIOXIDE 32.5 MMOL/L (24-32); TOTAL PROTEIN 6.1 G/DL (6.4-8.2); eGFR 90 ML/MIN
[2022-12-26 03:10] LABS: BASOPHILS # (AUTO) 0.1 X10'3 (0-0.2); EOSINOPHILS # (AUTO) 0.2 X10'3 (0-0.9); HEMATOCRIT 34.9 % (35.0-45.0); HEMOGLOBIN 10.8 g/dl (12.0-16.0); LYMPHOCYTES # (AUTO) 1.7 X10'3 (1.1-4.8); LYMPHOCYTES % (AUTO) 20.1 % (21-51); MEAN CORPUSCULAR HEMOGLOBIN 28.6 PG (27.0-31.0); MEAN CORPUSCULAR HGB CONC 31.1 g/dL (33.0-36.5); MEAN CORPUSCULAR VOLUME 91.9 FL (78-98); MEAN PLATELET VOLUME 6.9 FL (7.4-10.4); MONOCYTES # (AUTO) 0.9 X10'3 (0-0.9); MONOCYTES % (AUTO) 10.7 % (2-12); NEUTROPHILS # (AUTO) 5.4 X10'3 (1.8-7.7); NEUTROPHILS % (AUTO) 66.2 % (42-75); PLATELET COUNT 360 X10'3 (140-440); RED BLOOD COUNT 3.79 X10'6 (4.20-5.60); RED CELL DISTRIBUTION WIDTH 18.2 % (11.5-14.5); WHITE BLOOD COUNT 8.2 X10'3 (4.5-11.0)
[2022-12-26] MEDS ORDERED: POTASSIUM BICARB 20meq eff tab 20 MEQ TABLET.EFF PO ONE (03:15)
[2022-12-26] MEDS ORDERED: furosemide 20MG tablet PO ONE (03:15)
[2022-12-26 05:39] VITALS: BP 98/66
== END 2022-12-26 05:59 | disposition home or self-care (01) ==
LOC: ER 20:28
DX: R07.89 Other chest pain (principal); R10.9 Unspecified abdominal pain; M25.561 Pain in right knee; M25.562 Pain in left knee; W19.XXXA Unspecified fall, initial encounter; Y93.89 Activity, other specified; Y92.89 Other specified places as the place of occurrence of the external cause; Y99.8 Other external cause status
CPT/HCPCS: 36415; 71250; 73564; 74177; 80053; 83880; 85025; 96374; 99285; J2270; J3490; Q9967

== ENCOUNTER 2022-12-28 13:19 | Inpatient (IN) | payer MEDICAID ==
[~2022-12-28] VITALS: Ht 162.6 cm; Wt 70.5 kg
[2022-12-28] MEDS ORDERED: albuterol 2.5 MG/3 ML nebule CONTNEB PRN (13:45)
[2022-12-28 14:16] LABS: ABG BASE EXCESS 3.7 mmol/L (-2.0-2.0); ABG HCO3 28.5 mmol/L (22.0-26.0); ABG OXYGEN SATURATION 91.6 % (94-97); ALLEN'S TEST POSITIVE; FCOHb 0.9 % (0.0-3.9); FLOW 2 L/min; FMetHb 0.2 % (0.0-1.5); FO2Hb 90.6 % (94-97); TOTAL HEMOGLOBIN 12.1 G/dl (12.0-16.0)
[2022-12-28 14:16] LABS: BASOPHILS # (AUTO) 0.1 X10'3 (0-0.2); BASOPHILS % (AUTO) 0.5 % (0-1); EOSINOPHILS # (AUTO) 0.1 X10'3 (0-0.9); EOSINOPHILS % (AUTO) 0.5 % (0-6); LYMPHOCYTES % (AUTO) 7.1 % (21-51); MEAN PLATELET VOLUME 6.7 FL (7.4-10.4); MONOCYTES % (AUTO) 6.9 % (2-12); WHITE BLOOD COUNT 14.2 X10'3 (4.5-11.0)
[2022-12-28 14:31] LABS: ALANINE AMINOTRANSFERASE 10 U/L (12-78); ALBUMIN 2.4 G/DL (3.4-5.0); ALBUMIN/GLOBULIN RATIO 0.6 (1.1-1.5); ALKALINE PHOSPHATASE 120 IU/L (46-116); ANION GAP 4 (8-16); ASPARTATE AMINO TRANSFERASE 17 U/L (10-37); BILIRUBIN,TOTAL 0.3 MG/DL (0.1-1.0); BLOOD UREA NITROGEN 8 MG/DL (7-18); BUN/CREATININE RATIO 11.6 (6.6-38.0); CHLORIDE 105 MMOL/L (99-107); CREATININE 0.69 MG/DL (0.40-0.90); GLUCOSE 97 MG/DL (70-104); POTASSIUM 4.3 MMOL/L (3.5-5.1); SODIUM 139 MMOL/L (135-145); TOTAL CARBON DIOXIDE 30.5 MMOL/L (24-32); TOTAL PROTEIN 6.5 G/DL (6.4-8.2); eGFR 85 ML/MIN
[2022-12-28] MEDS ORDERED: furosemide 40mg/4ml inj IV ONE (14:45)
[2022-12-28 14:52] LABS: HEMATOCRIT 35.2 % (35.0-45.0); HEMOGLOBIN 10.7 g/dl (12.0-16.0); MEAN CORPUSCULAR HEMOGLOBIN 27.7 PG (27.0-31.0); MEAN CORPUSCULAR VOLUME 90.5 FL (78-98); RED BLOOD COUNT 3.89 X10'6 (4.20-5.60)
[2022-12-28 14:53] LABS: MEAN CORPUSCULAR HGB CONC 30.5 g/dL (33.0-36.5); PLATELET COUNT 424 X10'3 (140-440); RED CELL DISTRIBUTION WIDTH 17.5 % (11.5-14.5)
[2022-12-28] MEDS ORDERED: TOPI25TA49 PO (15:02)
[2022-12-28] MEDS ORDERED: APIX2.5T PO (15:02)
[2022-12-28] MEDS ORDERED: FLUO-167 PO (15:02)
[2022-12-28] MEDS ORDERED: ASPI-1397 PO (15:02)
[2022-12-28] MEDS ORDERED: LEVO100T PO (15:02)
[2022-12-28] MEDS ORDERED: DILT60TA9 PO (15:02)
[2022-12-28] MEDS ORDERED: PRIM50TA5 PO (15:02)
[2022-12-28] MEDS ORDERED: HUM100IN SQ (15:02)
[2022-12-28] MEDS ORDERED: LIRA0.6P2 SQ (15:02)
[2022-12-28] MEDS ORDERED: PRED20TA PO (15:02)
[2022-12-28] MEDS ORDERED: LANTUS SQ (15:02)
[2022-12-28] MEDS ORDERED: MIDO5TAB4 PO (15:02)
[2022-12-28] MEDS ORDERED: FURO-150 PO (15:02)
[2022-12-28] MEDS ORDERED: potassium Cl 20 mEq SR tablet PO PRN (15:15)
[2022-12-28] MEDS ORDERED: PERFLUTREN PROTEIN-A MICROSPHR (Optison) 0.22 MG/ML 3ML VIAL IV ONE (15:15)
[2022-12-28] MEDS ORDERED: ondansetron/PF 4mg/2ml inj IV PRN (15:15)
[2022-12-28] MEDS ORDERED: acetaminophen 325mg tablet PO PRN (15:15)
[2022-12-28] MEDS ORDERED: magnesium Cl slow-release 64mg tablet PO PRN (15:15)
[2022-12-28] MEDS ORDERED: potassium Cl 40MEQ/1/2NS 520ml 520 ML IV PRN (15:15)
[2022-12-28] MEDS ORDERED: magnesium 4gm in 100ml NS 100 ML IV PRN (15:15)
[2022-12-28] MEDS ORDERED: mag hydrox/Alum hydrox/simeth 30ml oral suspension PO PRN (15:15)
[2022-12-28] MEDS ORDERED: albuterol 2.5 MG/3 ML nebule NEB PRN (16:00)
[2022-12-28] MEDS ORDERED: ipratropium/albuterol 3ml nebule NEB SCH (17:00)
[2022-12-28] MEDS: insulin glargine (Lantus) pen - multi-dose SQ SCH (18:00)
--- NOTE | 2022-12-28 19:00 | NUR ---
Patient in room PCU 3022. I have received report from Crystal CEBALLOS RN and had the opportunity to ask questions and assume patient care.
--- NOTE | 2022-12-28 19:25 | NUR ---
pt arrived on the unit, tired and in pain, situated on the bed, placed on tele and vital are within normal limits
[2022-12-28 20:00] VITALS: BP 118/66
[2022-12-28] MEDS: INSULIN REGULAR SQ SCH (20:00)
[2022-12-28] MEDS: docusate sod 100mg capsule PO SCH (20:00)
[2022-12-28] MEDS: K and/or MAG REPLACEMENT MC SCH (20:00)
[2022-12-28] MEDS: INSULIN ISOPHANE SQ SCH (20:00)
[2022-12-28] MEDS: ipratropium/albuterol 3ml nebule NEB SCH (20:12)
[2022-12-28] MEDS: budesonide 0.5mg/2ml UD nebule IH SCH (20:12)
[2022-12-28] MEDS: guaiFENesin ER 600mg tablet PO SCH (21:16)
[2022-12-28] MEDS: metoprolol tartrate 25mg tablet PO SCH (21:17)
[2022-12-28] MEDS: clonazePAM 0.5mg tablet PO PRN (21:17)
[2022-12-28] MEDS: HYDROcodone/acetaminophen 10/325mg tab PO PRN (21:19)
[2022-12-28] MEDS: apixaban 2.5mg tablet PO SCH (21:20)
[2022-12-28] MEDS: primidone 50mg tablet PO SCH (21:20)
[2022-12-28] MEDS: diltiazem 30mg tablet PO SCH (21:20)
[2022-12-28] MEDS: furosemide 40mg/4ml inj IV SCH (21:21)
[2022-12-28] MEDS: topiramate 25mg tablet PO SCH (21:21)
[2022-12-29] VITALS (8 sets, daily range): BP systolic 80–104; BP diastolic 47–75
[2022-12-29] MEDS: diltiazem 30mg tablet PO SCH (01:25)
[2022-12-29] MEDS: HYDROcodone/acetaminophen 10/325mg tab PO PRN ×4 (01:25→19:32)
[2022-12-29 06:09] LABS: ALBUMIN 2.1 G/DL (3.4-5.0); ANION GAP 2 (8-16); BLOOD UREA NITROGEN 10 MG/DL (7-18); BUN/CREATININE RATIO 14.5 (6.6-38.0); CALCIUM 9.1 MG/DL (8.5-10.1); CHLORIDE 103 MMOL/L (99-107); CREATININE 0.69 MG/DL (0.40-0.90); GLUCOSE 84 MG/DL (70-104); MAGNESIUM 2.2 MG/DL (1.5-2.4); POTASSIUM 3.9 MMOL/L (3.5-5.1); SODIUM 139 MMOL/L (135-145); TOTAL CARBON DIOXIDE 33.8 MMOL/L (24-32); eGFR 85 ML/MIN
[2022-12-29 06:18] LABS: BASOPHILS # (AUTO) 0.1 X10'3 (0-0.2); BASOPHILS % (AUTO) 0.7 % (0-1); EOSINOPHILS # (AUTO) 0.1 X10'3 (0-0.9); EOSINOPHILS % (AUTO) 0.9 % (0-6); HEMATOCRIT 33.9 % (35.0-45.0); HEMOGLOBIN 10.4 g/dl (12.0-16.0); LYMPHOCYTES # (AUTO) 2.5 X10'3 (1.1-4.8); LYMPHOCYTES % (AUTO) 21.2 % (21-51); MEAN CORPUSCULAR HEMOGLOBIN 28.3 PG (27.0-31.0); MEAN CORPUSCULAR HGB CONC 30.8 g/dL (33.0-36.5); MEAN CORPUSCULAR VOLUME 91.9 FL (78-98); MEAN PLATELET VOLUME 6.8 FL (7.4-10.4); MONOCYTES # (AUTO) 1.2 X10'3 (0-0.9); NEUTROPHILS % (AUTO) 67.2 % (42-75); PLATELET COUNT 408 X10'3 (140-440); RED BLOOD COUNT 3.69 X10'6 (4.20-5.60); RED CELL DISTRIBUTION WIDTH 18.4 % (11.5-14.5)
--- NOTE | 2022-12-29 06:20 | NUR ---
Patient in room PCU 3022. I have received report from Hien STAUFFER and had the opportunity to ask questions and assume patient care.Bedside report completed.Pt BP 84/47. Pt asymptomatic. Will notify Dr Payne. Requesting Pain meds for ABD pain. Will medicate when SBP improves somewhat. Addendum: 12/29/22 at 0717 by Sheri Sanford RN Amended: Links added.
--- NOTE | 2022-12-29 06:34 | NUR ---
Problems reprioritized. Patient report given, questions answered & plan of care reviewed with Sheri STAUFFER.
[2022-12-29] MEDS: ipratropium/albuterol 3ml nebule NEB SCH ×4 (06:59→19:57)
[2022-12-29] MEDS: budesonide 0.5mg/2ml UD nebule IH SCH ×2 (06:59→19:57)
--- NOTE | 2022-12-29 07:11 | NUR ---
RT paged and now at bedside.
--- NOTE | 2022-12-29 07:11 | NUR ---
PAGER ID: [phone] MESSAGE: [id number] Emelia SBP 85-89/ 47 Pt received Cardizem 90mg @ 0130. Her home dose is 60mg Q6H. Pt not symptomatic. Sheri WHITLEY
[2022-12-29] MEDS: INSULIN ISOPHANE SQ SCH ×2 (08:00→20:00)
[2022-12-29] MEDS ORDERED: ipratropium 0.5 MG/2.5ML nebule IH SCH (08:00)
[2022-12-29] MEDS ORDERED: LIRAGLUTIDE 0.6 MG/0.1 ML PEN.INJCTR SQ SCH (08:00)
[2022-12-29] MEDS: K and/or MAG REPLACEMENT MC SCH ×2 (08:00→20:00)
[2022-12-29] MEDS: INSULIN REGULAR SQ SCH ×2 (08:00→20:00)
[2022-12-29] MEDS: ERTUGLIFLOZIN PIDOLATE PO SCH (08:00)
[2022-12-29] MEDS ORDERED: ROFLUMILAST PO SCH (08:00)
[2022-12-29] MEDS ORDERED: LIDOcaine 1% 30ml preserv. free vial ONE (08:03)
[2022-12-29] MEDS: FLUoxetine 20mg capsule PO SCH (08:04)
[2022-12-29] MEDS: levoTHYROXINE 100mcg tablet PO SCH (08:05)
[2022-12-29] MEDS: predniSONE 20 mg tablet PO SCH (08:05)
[2022-12-29] MEDS: loratadine 10mg tablet PO SCH (08:05)
[2022-12-29] MEDS: topiramate 25mg tablet PO SCH ×2 (08:05→21:33)
[2022-12-29] MEDS: duloxetine 30mg CAPSULE.DR PO SCH (08:06)
[2022-12-29] MEDS: docusate sod 100mg capsule PO SCH ×2 (08:06→21:34)
[2022-12-29] MEDS: guaiFENesin ER 600mg tablet PO SCH ×2 (08:06→21:34)
[2022-12-29] MEDS: allopurinol 100mg tablet PO SCH (08:06)
--- NOTE | 2022-12-29 08:08 | NUR ---
Angio at bedside to eval for thora
[2022-12-29] MEDS: aspirin 81mg, enteric-coated 1 TAB TABLET.DR PO SCH (09:57)
[2022-12-29] MEDS: apixaban 2.5mg tablet PO SCH ×2 (09:58→21:34)
[2022-12-29] MEDS: metoprolol tartrate 25mg tablet PO SCH ×2 (09:58→21:34)
[2022-12-29] MEDS: clopidogrel 75mg tablet PO SCH (09:58)
[2022-12-29] MEDS: furosemide 40mg/4ml inj IV SCH ×2 (09:59→21:35)
[2022-12-29] MEDS: levoFLOXACIN-Levaquin 500mg/D5 100 ML IV SCH (10:00)
[2022-12-29] MEDS ORDERED: roflumilast 500mcg tablet PO SCH (14:29)
[2022-12-29] MEDS: insulin glargine (Lantus) pen - multi-dose SQ SCH (18:00)
--- NOTE | 2022-12-29 18:00 | NUR ---
Patient in room PCU 3022. I have received report from Sheri STAUFFER and had the opportunity to ask questions and assume patient care.
--- NOTE | 2022-12-29 18:22 | NUR ---
Problems reprioritized. Patient report given, questions answered & plan of care reviewed with Hien STAUFFER. Bedside report completed.Pt watching TV.eating dinner. Addendum: 12/29/22 at 1823 by Sheri Sanford RN Amended: Links added.
[2022-12-29] MEDS: primidone 50mg tablet PO SCH (21:32)
--- NOTE | 2022-12-29 22:59 | NUR ---
PAGED DR. BARNES FOR ROOM 3022 TRINITY HODGES PT C/O SEVERE PAIN AND NORCO ALONE IS NOT HELPING HER. MAY WE PLEASE HAVE SOME MORPHINE?
[2022-12-30] MEDS ORDERED: morphine 2 MG/ML inj. syringe IV PRN (01:25)
[2022-12-30 02:00] VITALS: BP 115/69
[2022-12-30 06:00] VITALS: BP 104/67
--- NOTE | 2022-12-30 06:10 | NUR ---
Patient in room U 3022. I have received report from Selam STAUFFER and had the opportunity to ask questions and assume patient care.Pt having CP. Pain radiating to bilat jaw, back, Left arm, Pt coughing and SOB. Nitro SQ given. Ekg taken and shown to Dr Quarles. New orders taken. SBP 198 hydralazine 5mg iv given. Pain relieved with 2 ntg, SBP 135. Pt resting. States that was the worst episode she has had thus far. Addendum: 12/30/22 at 0712 by Sheri Sanford RN Amended: Links added. Addendum: 12/30/22 at 0714 by Sheri Sanford RN wrong PT
--- NOTE | 2022-12-30 06:10 | NUR ---
Patient in room PCU 3022. I have received report from Hien STAUFFER and had the opportunity to ask questions and assume patient care.Bedside report completed. Pt sleeping, Call light in reach. Addendum: 12/30/22 at 0654 by Sheri Sanford RN Amended: Links added.
[2022-12-30 06:21] LABS: BASOPHILS # (AUTO) 0.1 X10'3 (0-0.2); BASOPHILS % (AUTO) 0.5 % (0-1); EOSINOPHILS # (AUTO) 0.1 X10'3 (0-0.9); EOSINOPHILS % (AUTO) 0.7 % (0-6); HEMATOCRIT 35.5 % (35.0-45.0); HEMOGLOBIN 11.1 g/dl (12.0-16.0); LYMPHOCYTES # (AUTO) 2.1 X10'3 (1.1-4.8); LYMPHOCYTES % (AUTO) 21.5 % (21-51); MEAN CORPUSCULAR HEMOGLOBIN 28.7 PG (27.0-31.0); MEAN CORPUSCULAR HGB CONC 31.3 g/dL (33.0-36.5); MEAN CORPUSCULAR VOLUME 91.6 FL (78-98); MEAN PLATELET VOLUME 6.9 FL (7.4-10.4); MONOCYTES # (AUTO) 0.9 X10'3 (0-0.9); MONOCYTES % (AUTO) 9.3 % (2-12); NEUTROPHILS # (AUTO) 6.8 X10'3 (1.8-7.7); PLATELET COUNT 411 X10'3 (140-440); RED BLOOD COUNT 3.88 X10'6 (4.20-5.60); RED CELL DISTRIBUTION WIDTH 18.3 % (11.5-14.5)
[2022-12-30 06:22] LABS: ALBUMIN 2.3 G/DL (3.4-5.0); ANION GAP 3 (8-16); BLOOD UREA NITROGEN 13 MG/DL (7-18); BUN/CREATININE RATIO 17.6 (6.6-38.0); CHLORIDE 99 MMOL/L (99-107); CREATININE 0.74 MG/DL (0.40-0.90); GLUCOSE 101 MG/DL (70-104); POTASSIUM 3.3 MMOL/L (3.5-5.1); SODIUM 136 MMOL/L (135-145); TOTAL CARBON DIOXIDE 34.5 MMOL/L (24-32); eGFR 79 ML/MIN
--- NOTE | 2022-12-30 06:24 | NUR ---
Problems reprioritized. Patient report given, questions answered & plan of care reviewed with Sheri STAUFFER.
[2022-12-30] MEDS: ipratropium/albuterol 3ml nebule NEB SCH ×4 (07:16→19:01)
[2022-12-30] MEDS: budesonide 0.5mg/2ml UD nebule IH SCH ×2 (07:16→19:01)
[2022-12-30] MEDS: ERTUGLIFLOZIN PIDOLATE PO SCH (08:00)
[2022-12-30] MEDS: K and/or MAG REPLACEMENT MC SCH ×2 (08:00→23:38)
[2022-12-30] MEDS: levoFLOXACIN-Levaquin 500mg/D5 100 ML IV SCH (08:11)
[2022-12-30] MEDS: furosemide 40mg/4ml inj IV SCH (08:12)
[2022-12-30] MEDS: FLUoxetine 20mg capsule PO SCH (08:12)
[2022-12-30] MEDS: guaiFENesin ER 600mg tablet PO SCH ×2 (08:13→21:23)
[2022-12-30] MEDS: loratadine 10mg tablet PO SCH (08:13)
[2022-12-30] MEDS: duloxetine 30mg CAPSULE.DR PO SCH (08:13)
[2022-12-30] MEDS: predniSONE 20 mg tablet PO SCH (08:13)
[2022-12-30] MEDS: clopidogrel 75mg tablet PO SCH (08:14)
[2022-12-30] MEDS: topiramate 25mg tablet PO SCH ×2 (08:14→21:25)
[2022-12-30] MEDS: docusate sod 100mg capsule PO SCH ×2 (08:14→21:22)
[2022-12-30] MEDS: allopurinol 100mg tablet PO SCH (08:15)
[2022-12-30] MEDS: apixaban 2.5mg tablet PO SCH ×2 (08:15→21:25)
[2022-12-30] MEDS: aspirin 81mg, enteric-coated 1 TAB TABLET.DR PO SCH (08:16)
[2022-12-30] MEDS: HYDROcodone/acetaminophen 10/325mg tab PO PRN ×3 (08:16→17:54)
[2022-12-30] MEDS: metoprolol tartrate 25mg tablet PO SCH ×2 (08:17→21:25)
[2022-12-30] MEDS: levoTHYROXINE 100mcg tablet PO SCH (08:23)
[2022-12-30 11:30] VITALS: BP 115/85
[2022-12-30] MEDS: potassium Cl 20 mEq SR tablet PO PRN ×3 (12:47→23:59)
[2022-12-30] MEDS ORDERED: lactose-reduced food (Ensure High Protein) 237ml bottle PO SCH (13:00)
[2022-12-30 15:00] VITALS: BP 95/47
[2022-12-30] MEDS: insulin glargine (Lantus) pen - multi-dose SQ SCH (17:49)
[2022-12-30 18:00] VITALS: BP 100/70
--- NOTE | 2022-12-30 18:00 | NUR ---
Patient in room PCU 3022. I have received report from Sheri STAUFFER and had the opportunity to ask questions and assume patient care.
--- NOTE | 2022-12-30 18:09 | NUR ---
Problems reprioritized. Patient report given, questions answered & plan of care reviewed with Hien STAUFFER. Bedside report completed. Pt room mate at bedside. Addendum: 12/30/22 at 1810 by Sheri Sanford RN Amended: Links added.
[2022-12-30] MEDS: clonazePAM 0.5mg tablet PO PRN (18:59)
[2022-12-30] MEDS: primidone 50mg tablet PO SCH (21:23)
[2022-12-30 22:00] VITALS: BP 105/74
--- NOTE | 2022-12-30 23:53 | NUR ---
PAGED DR. BARNES FOR ROOM 3022, TRINITY HODGES--C/O OF PAIN AND SAYS GABRIEL IS NOT HELPING AND CRYING. TO RENEW THE MORPHINE ORDER
[2022-12-31] MEDS ORDERED: morphine 2 MG/ML inj. syringe IV PRN (00:05)
[2022-12-31 02:00] VITALS: BP 105/78
--- NOTE | 2022-12-31 04:00 | NUR ---
PT WAS VERY AGITATED, CRYING, AND WANTED A PAIN SHOT INSTEAD OF A PILL, SPOKE WITH DR. BARNES AND SHE ORDERED ONE TIME DOSE OF MORPHINE 2 MG. ADMINISTERED THE PAIN MED AND NOW PT RESTING
[2022-12-31 06:07] LABS: BASOPHILS # (AUTO) 0.1 X10'3 (0-0.2); BASOPHILS % (AUTO) 0.8 % (0-1); EOSINOPHILS # (AUTO) 0.1 X10'3 (0-0.9); EOSINOPHILS % (AUTO) 0.6 % (0-6); HEMATOCRIT 34.9 % (35.0-45.0); HEMOGLOBIN 11.1 g/dl (12.0-16.0); LYMPHOCYTES # (AUTO) 1.6 X10'3 (1.1-4.8); LYMPHOCYTES % (AUTO) 17.6 % (21-51); MEAN CORPUSCULAR HEMOGLOBIN 28.8 PG (27.0-31.0); MEAN CORPUSCULAR HGB CONC 31.7 g/dL (33.0-36.5); MEAN CORPUSCULAR VOLUME 90.9 FL (78-98); MEAN PLATELET VOLUME 6.7 FL (7.4-10.4); MONOCYTES # (AUTO) 0.8 X10'3 (0-0.9); MONOCYTES % (AUTO) 9.3 % (2-12); NEUTROPHILS # (AUTO) 6.5 X10'3 (1.8-7.7); NEUTROPHILS % (AUTO) 71.7 % (42-75); PLATELET COUNT 424 X10'3 (140-440); RED BLOOD COUNT 3.84 X10'6 (4.20-5.60); RED CELL DISTRIBUTION WIDTH 17.8 % (11.5-14.5); WHITE BLOOD COUNT 9.1 X10'3 (4.5-11.0)
[2022-12-31 06:10] LABS: ALBUMIN 2.3 G/DL (3.4-5.0); ANION GAP 6 (8-16); BLOOD UREA NITROGEN 14 MG/DL (7-18); BUN/CREATININE RATIO 21.5 (6.6-38.0); CALCIUM 9.1 MG/DL (8.5-10.1); CHLORIDE 102 MMOL/L (99-107); CREATININE 0.65 MG/DL (0.40-0.90); GLUCOSE 115 MG/DL (70-104); POTASSIUM 3.8 MMOL/L (3.5-5.1); SODIUM 139 MMOL/L (135-145); TOTAL CARBON DIOXIDE 31.1 MMOL/L (24-32); eGFR > 90 ML/MIN
--- NOTE | 2022-12-31 06:24 | NUR ---
Problems reprioritized. Patient report given, questions answered & plan of care reviewed with Maximiliano STAUFFER.
[2022-12-31 07:00] VITALS: BP 107/75
[2022-12-31] MEDS: budesonide 0.5mg/2ml UD nebule IH SCH ×2 (07:25→20:18)
[2022-12-31] MEDS: ipratropium/albuterol 3ml nebule NEB SCH ×4 (07:25→20:18)
[2022-12-31] MEDS: levoFLOXACIN-Levaquin 500mg/D5 100 ML IV SCH (07:44)
[2022-12-31] MEDS: predniSONE 20 mg tablet PO SCH (07:45)
[2022-12-31] MEDS: topiramate 25mg tablet PO SCH ×2 (07:45→20:01)
[2022-12-31] MEDS: furosemide 40mg/4ml inj IV SCH (07:45)
[2022-12-31] MEDS: loratadine 10mg tablet PO SCH (07:46)
[2022-12-31] MEDS: duloxetine 30mg CAPSULE.DR PO SCH (07:48)
[2022-12-31] MEDS: guaiFENesin ER 600mg tablet PO SCH ×2 (07:48→20:01)
[2022-12-31] MEDS: FLUoxetine 20mg capsule PO SCH (07:48)
[2022-12-31] MEDS: apixaban 2.5mg tablet PO SCH ×2 (07:49→20:01)
[2022-12-31] MEDS: allopurinol 100mg tablet PO SCH (07:49)
[2022-12-31] MEDS: metoprolol tartrate 25mg tablet PO SCH ×2 (07:51→20:00)
[2022-12-31] MEDS: HYDROcodone/acetaminophen 10/325mg tab PO PRN ×2 (07:51→15:23)
[2022-12-31] MEDS: aspirin 81mg, enteric-coated 1 TAB TABLET.DR PO SCH (07:51)
[2022-12-31] MEDS: levoTHYROXINE 100mcg tablet PO SCH (07:51)
[2022-12-31] MEDS: docusate sod 100mg capsule PO SCH ×2 (07:59→20:01)
[2022-12-31] MEDS: clopidogrel 75mg tablet PO SCH (07:59)
[2022-12-31] MEDS: K and/or MAG REPLACEMENT MC SCH ×2 (08:00→19:51)
[2022-12-31] MEDS: ERTUGLIFLOZIN PIDOLATE PO SCH (08:00)
[2022-12-31 11:00] VITALS: BP 102/77
[2022-12-31 15:00] VITALS: BP 99/72
[2022-12-31] MEDS: insulin glargine (Lantus) pen - multi-dose SQ SCH (17:27)
[2022-12-31 18:00] VITALS: BP 111/71
[2022-12-31] MEDS: primidone 50mg tablet PO SCH (20:01)
[2022-12-31] MEDS: magnesium hydroxide 30ml (MOM) UD suspension PO PRN (20:11)
[2022-12-31 22:00] VITALS: BP 114/79
[2023-01-01 02:00] VITALS: BP 118/77
[2023-01-01] MEDS: HYDROcodone/acetaminophen 10/325mg tab PO PRN ×3 (03:55→22:14)
[2023-01-01 07:00] VITALS: BP 123/82
[2023-01-01] MEDS: levoTHYROXINE 100mcg tablet PO SCH (07:00)
[2023-01-01] MEDS: ipratropium/albuterol 3ml nebule NEB SCH ×4 (07:26→19:56)
[2023-01-01] MEDS: budesonide 0.5mg/2ml UD nebule IH SCH ×2 (07:26→19:56)
[2023-01-01] MEDS: K and/or MAG REPLACEMENT MC SCH ×2 (08:00→19:13)
[2023-01-01] MEDS: ERTUGLIFLOZIN PIDOLATE PO SCH (08:00)
[2023-01-01] MEDS: furosemide 40mg/4ml inj IV SCH (08:45)
[2023-01-01] MEDS: apixaban 2.5mg tablet PO SCH ×2 (08:45→19:23)
[2023-01-01] MEDS: FLUoxetine 20mg capsule PO SCH (08:45)
[2023-01-01] MEDS: clopidogrel 75mg tablet PO SCH (08:46)
[2023-01-01] MEDS: topiramate 25mg tablet PO SCH ×2 (08:46→19:24)
[2023-01-01] MEDS: duloxetine 30mg CAPSULE.DR PO SCH (08:46)
[2023-01-01] MEDS: guaiFENesin ER 600mg tablet PO SCH ×2 (08:46→19:23)
[2023-01-01] MEDS: aspirin 81mg, enteric-coated 1 TAB TABLET.DR PO SCH (08:46)
[2023-01-01] MEDS: loratadine 10mg tablet PO SCH (08:46)
[2023-01-01] MEDS: docusate sod 100mg capsule PO SCH ×2 (08:47→19:23)
[2023-01-01] MEDS: metoprolol tartrate 25mg tablet PO SCH ×2 (08:48→19:25)
[2023-01-01] MEDS: allopurinol 100mg tablet PO SCH (08:49)
[2023-01-01] MEDS: predniSONE 20 mg tablet PO SCH (08:49)
[2023-01-01 11:00] VITALS: BP 133/81
[2023-01-01] MEDS ORDERED: morphine 2 MG/ML inj. syringe IV ONE (11:40)
[2023-01-01 12:58] LABS: BASOPHILS # (AUTO) 0.1 X10'3 (0-0.2); BASOPHILS % (AUTO) 1.3 % (0-1); EOSINOPHILS % (AUTO) 0.6 % (0-6); HEMATOCRIT 35.7 % (35.0-45.0); LYMPHOCYTES # (AUTO) 1.8 X10'3 (1.1-4.8); LYMPHOCYTES % (AUTO) 23.2 % (21-51); MEAN CORPUSCULAR HEMOGLOBIN 28.2 PG (27.0-31.0); MEAN CORPUSCULAR HGB CONC 30.9 g/dL (33.0-36.5); MEAN CORPUSCULAR VOLUME 91.4 FL (78-98); MONOCYTES # (AUTO) 0.7 X10'3 (0-0.9); MONOCYTES % (AUTO) 9.1 % (2-12); NEUTROPHILS % (AUTO) 65.8 % (42-75); PLATELET COUNT 431 X10'3 (140-440); WHITE BLOOD COUNT 7.6 X10'3 (4.5-11.0)
[2023-01-01 13:08] LABS: ALBUMIN 2.4 G/DL (3.4-5.0); ANION GAP 5 (8-16); BLOOD UREA NITROGEN 13 MG/DL (7-18); BUN/CREATININE RATIO 20.3 (6.6-38.0); CALCIUM 8.8 MG/DL (8.5-10.1); CHLORIDE 102 MMOL/L (99-107); CREATININE 0.64 MG/DL (0.40-0.90); GLUCOSE 85 MG/DL (70-104); MAGNESIUM 2.4 MG/DL (1.5-2.4); POTASSIUM 3.8 MMOL/L (3.5-5.1); SODIUM 138 MMOL/L (135-145); TOTAL CARBON DIOXIDE 30.6 MMOL/L (24-32); eGFR > 90 ML/MIN
--- NOTE | 2023-01-01 13:50 | NUR ---
PRESSURE ULCER EDUCATION: DEFINITION: A pressure ulcer is an area of skin that breaks down when you stay in one position too long. The constant pressure against the skin reduces the blood flow to that area and the affected tissue dies. CAUSES: "Being bedridden or in a wheelchair "Fragile skin "Having a chronic condition, such as diabetes or vascular disease "Inability to move certain parts of your body without assistance "Older age "Incontinence of urine or stool SYMPTOMS: "A reddened area that DOES NOT turn white when pressed on - this can be the beginning of a pressure ulcer "A blister, deep sore or a crater - these can be advanced pressure ulcers FIRST AID: "Relieve the pressure on this area "Keep the area clean and dry "Call your primary doctor if you see any of the above symptoms "DO NOT massage the area "DO NOT use a donut shaped or ring shaped pillow- these actually interfere with the blood flow and cause complications PREVENTION: "Check for pressure ulcers everyday "Change position at least every two hours to relieve pressure "Use items that help relieve pressure- pillows, sheepskin, foam padding, and powders. "Keep skin clean and dry "Eat healthy well balanced meals "Exercise daily IF YOU SEE ANY OF THESE SYMPTOMS WHILE IN THE HOSPITAL - TELL YOUR NURSE IMMEDIATELY. IF YOU SEE ANY OF THESE SYMPTOMS WHILE AT HOME OR HAVE ANY QUESTIONS OR CONCERNS ABOUT PRESSURE ULCERS - CALL YOUR PRIMARY DOCTOR IMMEDIATELY. Addendum: 01/01/23 at 1350 by Ayala Marroquin RN Amended: Links added.
[2023-01-01] MEDS: levoFLOXACIN 500mg tablet PO SCH (14:06)
[2023-01-01 15:00] VITALS: BP 113/77
[2023-01-01 18:00] VITALS: BP 102/62
[2023-01-01] MEDS: insulin glargine (Lantus) pen - multi-dose SQ SCH (18:00)
[2023-01-01] MEDS: magnesium hydroxide 30ml (MOM) UD suspension PO PRN (19:23)
[2023-01-01] MEDS: primidone 50mg tablet PO SCH (19:24)
[2023-01-01 22:00] VITALS: BP 106/76
[2023-01-02 02:00] VITALS: BP 112/72
[2023-01-02] MEDS: HYDROcodone/acetaminophen 10/325mg tab PO PRN ×3 (02:28→13:05)
[2023-01-02 07:00] VITALS: BP 113/74
[2023-01-02] MEDS: ipratropium/albuterol 3ml nebule NEB SCH ×2 (07:22→11:13)
[2023-01-02] MEDS: budesonide 0.5mg/2ml UD nebule IH SCH (07:22)
[2023-01-02 07:27] LABS: BASOPHILS % (AUTO) 0.7 % (0-1); EOSINOPHILS # (AUTO) 0.1 X10'3 (0-0.9); EOSINOPHILS % (AUTO) 1.1 % (0-6); HEMATOCRIT 36.5 % (35.0-45.0); HEMOGLOBIN 11.5 g/dl (12.0-16.0); LYMPHOCYTES # (AUTO) 2.2 X10'3 (1.1-4.8); LYMPHOCYTES % (AUTO) 34.2 % (21-51); MEAN CORPUSCULAR HEMOGLOBIN 28.3 PG (27.0-31.0); MEAN CORPUSCULAR HGB CONC 31.6 g/dL (33.0-36.5); MEAN CORPUSCULAR VOLUME 89.6 FL (78-98); MEAN PLATELET VOLUME 6.5 FL (7.4-10.4); MONOCYTES # (AUTO) 0.6 X10'3 (0-0.9); MONOCYTES % (AUTO) 9.6 % (2-12); NEUTROPHILS # (AUTO) 3.5 X10'3 (1.8-7.7); NEUTROPHILS % (AUTO) 54.4 % (42-75); PLATELET COUNT 451 X10'3 (140-440); RED BLOOD COUNT 4.07 X10'6 (4.20-5.60); RED CELL DISTRIBUTION WIDTH 17.5 % (11.5-14.5); WHITE BLOOD COUNT 6.4 X10'3 (4.5-11.0)
[2023-01-02 07:46] LABS: ALBUMIN 2.5 G/DL (3.4-5.0); ANION GAP 4 (8-16); BLOOD UREA NITROGEN 14 MG/DL (7-18); BUN/CREATININE RATIO 20.6 (6.6-38.0); CALCIUM 8.9 MG/DL (8.5-10.1); CHLORIDE 103 MMOL/L (99-107); CREATININE 0.68 MG/DL (0.40-0.90); GLUCOSE 107 MG/DL (70-104); POTASSIUM 3.8 MMOL/L (3.5-5.1); SODIUM 136 MMOL/L (135-145); TOTAL CARBON DIOXIDE 29.5 MMOL/L (24-32); eGFR 87 ML/MIN
[2023-01-02] MEDS: K and/or MAG REPLACEMENT MC SCH (08:00)
[2023-01-02] MEDS: ERTUGLIFLOZIN PIDOLATE PO SCH (08:00)
[2023-01-02] MEDS: loratadine 10mg tablet PO SCH (08:52)
[2023-01-02] MEDS: apixaban 2.5mg tablet PO SCH (08:53)
[2023-01-02] MEDS: guaiFENesin ER 600mg tablet PO SCH (08:53)
[2023-01-02] MEDS: topiramate 25mg tablet PO SCH (08:53)
[2023-01-02] MEDS: duloxetine 30mg CAPSULE.DR PO SCH (08:53)
[2023-01-02] MEDS: allopurinol 100mg tablet PO SCH (08:53)
[2023-01-02] MEDS: docusate sod 100mg capsule PO SCH (08:54)
[2023-01-02] MEDS: predniSONE 20 mg tablet PO SCH (08:54)
[2023-01-02] MEDS: metoprolol tartrate 25mg tablet PO SCH (08:54)
[2023-01-02] MEDS: FLUoxetine 20mg capsule PO SCH (08:54)
[2023-01-02] MEDS: aspirin 81mg, enteric-coated 1 TAB TABLET.DR PO SCH (08:54)
[2023-01-02] MEDS: clopidogrel 75mg tablet PO SCH (08:55)
[2023-01-02] MEDS: furosemide 40mg/4ml inj IV SCH (08:55)
[2023-01-02] MEDS: levoTHYROXINE 100mcg tablet PO SCH (08:56)
[2023-01-02 11:00] VITALS: BP 121/79
[2023-01-02] MEDS: levoFLOXACIN 500mg tablet PO SCH (11:00)
[2023-01-02] MEDS ORDERED: LEVO-65 PO (12:10)
== END 2023-01-02 13:30 | disposition home health service (06) | DRG 139 ==
LOC: ER 13:20 → ED HOLD 15:15 → PCU 3S 19:25
PROVIDERS: ADMIT Family Medicine; ATTEND Family Medicine
DX: J18.9 Pneumonia, unspecified organism (principal); J96.21 Acute and chronic respiratory failure with hypoxia; I50.33 Acute on chronic diastolic (congestive) heart failure; I48.91 Unspecified atrial fibrillation; G40.909 Epilepsy, unspecified, not intractable, without status epilepticus; J44.0 Chronic obstructive pulmonary disease with (acute) lower respiratory infection; E03.9 Hypothyroidism, unspecified; I11.0 Hypertensive heart disease with heart failure; Z99.81 Dependence on supplemental oxygen; J44.1 Chronic obstructive pulmonary disease with (acute) exacerbation; Z66 Do not resuscitate; Z20.822 Contact with and (suspected) exposure to COVID-19; E78.00 Pure hypercholesterolemia, unspecified; F32.A Depression, unspecified; F41.9 Anxiety disorder, unspecified; E11.9 Type 2 diabetes mellitus without complications; G43.909 Migraine, unspecified, not intractable, without status migrainosus; G47.30 Sleep apnea, unspecified; K21.9 Gastro-esophageal reflux disease without esophagitis; M10.9 Gout, unspecified; G89.4 Chronic pain syndrome; M54.9 Dorsalgia, unspecified; I25.10 Atherosclerotic heart disease of native coronary artery without angina pectoris; I25.2 Old myocardial infarction; Z79.899 Other long term (current) drug therapy; Z82.49 Family history of ischemic heart disease and other diseases of the circulatory system; Z82.5 Family history of asthma and other chronic lower respiratory diseases; Z83.3 Family history of diabetes mellitus; Z87.891 Personal history of nicotine dependence; Z90.710 Acquired absence of both cervix and uterus; Z95.5 Presence of coronary angioplasty implant and graft; Z79.82 Long term (current) use of aspirin; Z79.4 Long term (current) use of insulin
CPT/HCPCS: 36415; 36600; 71045; 76705; 80048; 80053; 82803; 82948; 83735; 83880; 84484; 85018; 85025; 87081; 87811; 93306; 94640; 94760; 97110; 97116; 97161; 97530; 99285; A6212; A6250; A6258; A6449; A7015; G0378; J1815; J1940; J1956; J2270; J3490; J7040; J7512

== ENCOUNTER 2023-01-06 20:30 | Emergency (ER) | payer MEDICAID ==
[~2023-01-06] VITALS: Ht 162.6 cm; Wt 74.5 kg
[~2023-01-06 20:30] MED LIST changes: -AMIO200T27 PO; +APIX2.5T PO; -APIX5TAB3 PO; +ASPI-1397 PO; +FLUO-167 PO; +FURO-150 PO; -FURO20TA4 PO; -GABA-534 PO; +HUM100IN SQ; +LANTUS SQ; +LEVO-65 PO; +LEVO100T PO; +LIRA0.6P2 SQ; +PRED20TA PO; +PRIM50TA5 PO; +TOPI-253 PO; -TOPI50TA24 PO
[2023-01-06 20:51] VITALS: BP 106/81
== END 2023-01-07 02:04 | disposition home or self-care (01) ==
LOC: ER 20:31
DX: S41.111A Laceration without foreign body of right upper arm, initial encounter (principal); G43.909 Migraine, unspecified, not intractable, without status migrainosus; I11.0 Hypertensive heart disease with heart failure; I50.9 Heart failure, unspecified; E78.00 Pure hypercholesterolemia, unspecified; J44.9 Chronic obstructive pulmonary disease, unspecified; K21.9 Gastro-esophageal reflux disease without esophagitis; E11.9 Type 2 diabetes mellitus without complications; M19.90 Unspecified osteoarthritis, unspecified site; W19.XXXA Unspecified fall, initial encounter; Y93.89 Activity, other specified; Y92.89 Other specified places as the place of occurrence of the external cause; Y99.8 Other external cause status
CPT/HCPCS: 12002; 99283; A4338; A6258; A6446; A6449

== ENCOUNTER 2023-01-09 13:59 | Inpatient (IN) | payer MEDICAID ==
[~2023-01-09] VITALS: Ht 162.6 cm; Wt 73.7 kg
--- NOTE | 2023-01-09 15:22 | NUR ---
Dr. Estrada at bedside. x ray at bedside
[2023-01-09] MEDS ORDERED: diltiazem 5mg/ml 5ml inj. IV ONE ×2 (15:30→19:00)
[2023-01-09 15:35] LABS: BASOPHILS # (AUTO) 0.1 X10'3 (0-0.2); BASOPHILS % (AUTO) 0.6 % (0-1); EOSINOPHILS # (AUTO) 0.1 X10'3 (0-0.9); EOSINOPHILS % (AUTO) 0.4 % (0-6); HEMATOCRIT 26.7 % (35.0-45.0); HEMOGLOBIN 7.9 g/dl (12.0-16.0); LYMPHOCYTES # (AUTO) 1.1 X10'3 (1.1-4.8); MEAN CORPUSCULAR HEMOGLOBIN 27.2 PG (27.0-31.0); MEAN CORPUSCULAR HGB CONC 29.7 g/dL (33.0-36.5); MEAN CORPUSCULAR VOLUME 91.5 FL (78-98); MEAN PLATELET VOLUME 6.9 FL (7.4-10.4); MONOCYTES # (AUTO) 0.6 X10'3 (0-0.9); MONOCYTES % (AUTO) 4.1 % (2-12); NEUTROPHILS # (AUTO) 13.4 X10'3 (1.8-7.7); NEUTROPHILS % (AUTO) 87.9 % (42-75); PLATELET COUNT 469 X10'3 (140-440); RED BLOOD COUNT 2.92 X10'6 (4.20-5.60); RED CELL DISTRIBUTION WIDTH 17.1 % (11.5-14.5); WHITE BLOOD COUNT 15.2 X10'3 (4.5-11.0)
[2023-01-09 15:41] LABS: APTT 26 SECONDS (22-32)
[2023-01-09 15:50] LABS: ALANINE AMINOTRANSFERASE 14 U/L (12-78); ALBUMIN 2.7 G/DL (3.4-5.0); ALBUMIN/GLOBULIN RATIO 0.8 (1.1-1.5); ALKALINE PHOSPHATASE 234 IU/L (46-116); ANION GAP 11 (8-16); ASPARTATE AMINO TRANSFERASE 15 U/L (10-37); BILIRUBIN,TOTAL 0.4 MG/DL (0.1-1.0); BLOOD UREA NITROGEN 9 MG/DL (7-18); BUN/CREATININE RATIO 11.1 (6.6-38.0); CALCIUM 8.2 MG/DL (8.5-10.1); CHLORIDE 99 MMOL/L (99-107); CREATININE 0.81 MG/DL (0.40-0.90); GLUCOSE 187 MG/DL (70-104); POTASSIUM 3.8 MMOL/L (3.5-5.1); SODIUM 137 MMOL/L (135-145); TOTAL CARBON DIOXIDE 27.5 MMOL/L (24-32); TOTAL PROTEIN 6.1 G/DL (6.4-8.2); eGFR 71 ML/MIN
[2023-01-09] MEDS ORDERED: iohexol 300mg/ml 100ml inj. ONE ×2 (15:52→17:27)
[2023-01-09] MEDS: morphine 2 MG/ML inj. syringe IV PRN ×3 (17:19→23:19)
--- NOTE | 2023-01-09 17:28 | NUR ---
PT B/P DROPPED MD FRANCIS NOTIFIED, 500L NS BOLUS HUNG AT THIS TIME.
[2023-01-09] MEDS ORDERED: AMOX-117 PO (19:05)
[2023-01-09] MEDS ORDERED: amox tr/potassium clavulanate 875/125mg TAB PO ONE (19:05)
--- NOTE | 2023-01-09 20:49 | NUR ---
Amina stephens in ED - 01/09/23 at 2050 by JANNET Patients dressing changed on her left face. Patient was compliant with nearly all night medications.
[2023-01-09] MEDS: normal saline 1000ml 1,000 ML IV SCH (21:20)
[2023-01-09] MEDS ORDERED: potassium Cl 40MEQ/1/2NS 520ml 520 ML IV PRN (21:20)
[2023-01-09] MEDS ORDERED: HYDROcodone/acetaminophen 5mg/325mg tablet PO PRN (21:20)
[2023-01-09] MEDS ORDERED: ipratropium/albuterol 3ml nebule NEB PRN ×2 (21:20)
[2023-01-09] MEDS ORDERED: magnesium 4gm in 100ml NS 100 ML IV PRN (21:20)
[2023-01-09] MEDS ORDERED: ondansetron/PF 4mg/2ml inj IV PRN (21:20)
[2023-01-09] MEDS ORDERED: magnesium 2GM in 50ml NS 50 ML IV PRN (21:20)
[2023-01-09] MEDS ORDERED: magnesium Cl slow-release 64mg tablet PO PRN ×2 (21:20)
[2023-01-09] MEDS ORDERED: potassium Cl 20 mEq SR tablet PO PRN (21:20)
[2023-01-09] MEDS ORDERED: acetaminophen 325mg tablet PO PRN (21:20)
[2023-01-09] MEDS: CefTRIAXone/D5W-Rocephin 1gm 50 ML IV SCH (23:04)
[2023-01-09] MEDS: azithromycin/NS 500mg/250ml 250 ML IV SCH (23:11)
[2023-01-10] VITALS (7 sets, daily range): BP systolic 94–116; BP diastolic 50–73
[2023-01-10] MEDS: morphine 2 MG/ML inj. syringe IV PRN ×5 (01:56→17:31)
--- NOTE | 2023-01-10 05:07 | NUR ---
PAGER ID: [phone] MESSAGE: Milady Kapoor in ER room 1 in A-FIB, HR rate between 130-160. BP 104/79 . New orders? Teresita STAUFFER [id number]
--- NOTE | 2023-01-10 06:04 | NUR ---
Patient friend and roommate Clarice Penn [phone]
--- NOTE | 2023-01-10 06:39 | NUR ---
Dr. Quarles came by to the ER. I asked her if she wants me to start patient on PO Cardizem and that I got a report that patient's SBP dropped to 70's after patient received an IV Cardizem. Per Dr. Quarles, I can hold the order for PO Cardizem. She initially said to give Digoxin instead but told me that she would want to review the patient's chart first and she will write the order instead. Dr. Quarles aware of the HR 130's to 140's.
[2023-01-10 07:20] LABS: BASOPHILS # (AUTO) 0.2 X10'3 (0-0.2); BASOPHILS % (AUTO) 1.4 % (0-1); EOSINOPHILS # (AUTO) 0.1 X10'3 (0-0.9); EOSINOPHILS % (AUTO) 0.8 % (0-6); HEMATOCRIT 23.4 % (35.0-45.0); HEMOGLOBIN 7.2 g/dl (12.0-16.0); LYMPHOCYTES # (AUTO) 3.2 X10'3 (1.1-4.8); MEAN CORPUSCULAR HGB CONC 30.7 g/dL (33.0-36.5); MEAN CORPUSCULAR VOLUME 91.3 FL (78-98); MEAN PLATELET VOLUME 6.7 FL (7.4-10.4); MONOCYTES # (AUTO) 1.2 X10'3 (0-0.9); MONOCYTES % (AUTO) 7.3 % (2-12); NEUTROPHILS # (AUTO) 11.2 X10'3 (1.8-7.7); NEUTROPHILS % (AUTO) 70.5 % (42-75); PLATELET COUNT 446 X10'3 (140-440); RED BLOOD COUNT 2.56 X10'6 (4.20-5.60); RED CELL DISTRIBUTION WIDTH 17.4 % (11.5-14.5); WHITE BLOOD COUNT 15.9 X10'3 (4.5-11.0)
[2023-01-10 07:48] LABS: ALBUMIN 2.7 G/DL (3.4-5.0); ANION GAP 9 (8-16); BLOOD UREA NITROGEN 13 MG/DL (7-18); BUN/CREATININE RATIO 17.6 (6.6-38.0); CALCIUM 8.4 MG/DL (8.5-10.1); CHLORIDE 100 MMOL/L (99-107); CREATININE 0.74 MG/DL (0.40-0.90); GLUCOSE 148 MG/DL (70-104); MAGNESIUM 2.1 MG/DL (1.5-2.4); POTASSIUM 4.1 MMOL/L (3.5-5.1); SODIUM 137 MMOL/L (135-145); TOTAL CARBON DIOXIDE 27.8 MMOL/L (24-32); eGFR 79 ML/MIN
[2023-01-10] MEDS: K and/or MAG REPLACEMENT MC SCH ×2 (08:00→20:00)
[2023-01-10] MEDS ORDERED: diltiazem CD 120mg capsule (once-daily) PO SCH (08:00)
[2023-01-10] MEDS ORDERED: metoprolol tartrate 50mg tablet PO ONE (08:10)
[2023-01-10] MEDS ORDERED: clonazePAM 0.5mg tablet PO PRN (08:15)
[2023-01-10] MEDS: HYDROcodone/acetaminophen 10/325mg tab PO PRN ×3 (09:11→22:58)
[2023-01-10] MEDS: FLUoxetine 20mg capsule PO SCH (09:11)
[2023-01-10] MEDS: allopurinol 100mg tablet PO SCH (09:12)
[2023-01-10] MEDS: furosemide 20MG tablet PO SCH (09:12)
--- NOTE | 2023-01-10 10:00 | NUR ---
Pt's thiamine not yet available. Awaiting from pharmacy.
[2023-01-10] MEDS: topiramate 25mg tablet PO SCH ×2 (10:21→20:23)
[2023-01-10] MEDS: ipratropium/albuterol 3ml nebule NEB SCH ×2 (13:00→19:41)
[2023-01-10 14:59] LABS: HEMOGLOBIN 7.1 g/dl (12.0-16.0); MEAN CORPUSCULAR HGB CONC 29.5 g/dL (33.0-36.5); MEAN CORPUSCULAR VOLUME 91.6 FL (78-98); MEAN PLATELET VOLUME 6.8 FL (7.4-10.4); PLATELET COUNT 444 X10'3 (140-440); RED BLOOD COUNT 2.62 X10'6 (4.20-5.60); RED CELL DISTRIBUTION WIDTH 17.4 % (11.5-14.5); WHITE BLOOD COUNT 12.3 X10'3 (4.5-11.0)
[2023-01-10 15:13] LABS: % IRON SATURATION 8 % (11-46); IRON 20 UG/DL (49-151); TOTAL IRON BINDING CAPACITY 238 UG/DL (259-388)
[2023-01-10] MEDS ORDERED: iron sucrose complex injection 500 MG in normal saline 250ml IV soln 250 ML IV ONE (15:50)
[2023-01-10] MEDS ORDERED: albuterol 2.5 MG/3 ML nebule NEB PRN (16:00)
[2023-01-10 17:15] LABS: HEMOGLOBIN A1C 5.9 % (4.5-6.2)
[2023-01-10] MEDS: pantoprazole 40MG/NS 100ML BAG 100 ML IV SCH (17:30)
--- NOTE | 2023-01-10 18:32 | NUR ---
Problems reprioritized. Patient report given, questions answered & plan of care reviewed with Abimbola STAUFFER. Patient resting in bed in no acute distress.
[2023-01-10] MEDS: budesonide 0.5mg/2ml UD nebule IH SCH (19:41)
[2023-01-10] MEDS ORDERED: metoprolol tartrate 25mg tablet PO SCH (20:00)
[2023-01-10] MEDS: primidone 50mg tablet PO SCH (20:22)
[2023-01-10] MEDS: guaiFENesin ER 600mg tablet PO SCH (20:22)
[2023-01-10] MEDS: metoprolol tartrate 25mg tablet PO SCH (20:23)
[2023-01-11] MEDS: pantoprazole 40MG/NS 100ML BAG 100 ML IV SCH ×6 (01:00→21:13)
[2023-01-11] MEDS: CefTRIAXone/D5W-Rocephin 1gm 50 ML IV SCH ×2 (02:44→23:35)
[2023-01-11] MEDS: morphine 2 MG/ML inj. syringe IV PRN ×3 (02:45→16:32)
[2023-01-11] MEDS: azithromycin/NS 500mg/250ml 250 ML IV SCH (03:16)
[2023-01-11 06:38] LABS: BASOPHILS # (AUTO) 0.1 X10'3 (0-0.2); BASOPHILS % (AUTO) 0.8 % (0-1); EOSINOPHILS # (AUTO) 0.2 X10'3 (0-0.9); HEMATOCRIT 25.6 % (35.0-45.0); HEMOGLOBIN 7.8 g/dl (12.0-16.0); LYMPHOCYTES # (AUTO) 1.6 X10'3 (1.1-4.8); LYMPHOCYTES % (AUTO) 16.4 % (21-51); MEAN CORPUSCULAR HEMOGLOBIN 27.7 PG (27.0-31.0); MEAN CORPUSCULAR HGB CONC 30.6 g/dL (33.0-36.5); MEAN CORPUSCULAR VOLUME 90.8 FL (78-98); MEAN PLATELET VOLUME 6.7 FL (7.4-10.4); MONOCYTES # (AUTO) 0.8 X10'3 (0-0.9); MONOCYTES % (AUTO) 8.4 % (2-12); NEUTROPHILS % (AUTO) 72.4 % (42-75); PLATELET COUNT 339 X10'3 (140-440); RED BLOOD COUNT 2.82 X10'6 (4.20-5.60); RED CELL DISTRIBUTION WIDTH 16.5 % (11.5-14.5); WHITE BLOOD COUNT 9.6 X10'3 (4.5-11.0)
[2023-01-11 06:44] LABS: ALBUMIN 2.2 G/DL (3.4-5.0); ANION GAP 5 (8-16); BLOOD UREA NITROGEN 13 MG/DL (7-18); BUN/CREATININE RATIO 21.3 (6.6-38.0); CHLORIDE 104 MMOL/L (99-107); CREATININE 0.61 MG/DL (0.40-0.90); GLUCOSE 114 MG/DL (70-104); MAGNESIUM 2.1 MG/DL (1.5-2.4); POTASSIUM 3.3 MMOL/L (3.5-5.1); SODIUM 138 MMOL/L (135-145); TOTAL CARBON DIOXIDE 29.1 MMOL/L (24-32); eGFR > 90 ML/MIN
[2023-01-11] MEDS: budesonide 0.5mg/2ml UD nebule IH SCH ×2 (07:00→19:51)
--- NOTE | 2023-01-11 07:47 | NUR ---
Patient in room PCU 3022B. I have received report from Abimbola STAUFFER and had the opportunity to ask questions and assume patient care.
[2023-01-11] MEDS ORDERED: ERTUGLIFLOZIN PIDOLATE 15 MG PO SCH (08:00)
[2023-01-11] MEDS ORDERED: non-formulary drug (Tiotropium Bromide (Spiriva Respimat) 2 PUFFS) INH SCH (08:00)
[2023-01-11] MEDS: ipratropium/albuterol 3ml nebule NEB SCH ×4 (08:15→19:51)
[2023-01-11] MEDS: loratadine 10mg tablet PO SCH (09:35)
[2023-01-11] MEDS: levoTHYROXINE 100mcg tablet PO SCH (09:36)
[2023-01-11] MEDS: roflumilast 500mcg tablet PO SCH (09:36)
[2023-01-11] MEDS: allopurinol 100mg tablet PO SCH (09:37)
[2023-01-11] MEDS: duloxetine 30mg CAPSULE.DR PO SCH (09:37)
[2023-01-11] MEDS: furosemide 20MG tablet PO SCH (09:37)
[2023-01-11] MEDS: FLUoxetine 20mg capsule PO SCH (09:38)
[2023-01-11] MEDS: topiramate 25mg tablet PO SCH ×2 (09:38→20:35)
[2023-01-11] MEDS: guaiFENesin ER 600mg tablet PO SCH ×2 (09:40→20:34)
[2023-01-11] MEDS: predniSONE 20 mg tablet PO SCH (09:40)
--- NOTE | 2023-01-11 10:03 | NUR ---
ORDERS FOR OCCULT STOOL PUT IN PER DR. SHRESTHA.
[2023-01-11] MEDS: metoprolol tartrate 25mg tablet PO SCH ×2 (11:04→20:00)
[2023-01-11 11:05] VITALS: BP 98/62
[2023-01-11] MEDS: K and/or MAG REPLACEMENT MC SCH ×2 (11:05→19:00)
--- NOTE | 2023-01-11 13:12 | NUR ---
PRESSURE ULCER EDUCATION: DEFINITION: A pressure ulcer is an area of skin that breaks down when you stay in one position too long. The constant pressure against the skin reduces the blood flow to that area and the affected tissue dies. CAUSES: "Being bedridden or in a wheelchair "Fragile skin "Having a chronic condition, such as diabetes or vascular disease "Inability to move certain parts of your body without assistance "Older age "Incontinence of urine or stool SYMPTOMS: "A reddened area that DOES NOT turn white when pressed on - this can be the beginning of a pressure ulcer "A blister, deep sore or a crater - these can be advanced pressure ulcers FIRST AID: "Relieve the pressure on this area "Keep the area clean and dry "Call your primary doctor if you see any of the above symptoms "DO NOT massage the area "DO NOT use a donut shaped or ring shaped pillow- these actually interfere with the blood flow and cause complications PREVENTION: "Check for pressure ulcers everyday "Change position at least every two hours to relieve pressure "Use items that help relieve pressure- pillows, sheepskin, foam padding, and powders. "Keep skin clean and dry "Eat healthy well balanced meals "Exercise daily IF YOU SEE ANY OF THESE SYMPTOMS WHILE IN THE HOSPITAL - TELL YOUR NURSE IMMEDIATELY. IF YOU SEE ANY OF THESE SYMPTOMS WHILE AT HOME OR HAVE ANY QUESTIONS OR CONCERNS ABOUT PRESSURE ULCERS - CALL YOUR PRIMARY DOCTOR IMMEDIATELY. Addendum: 01/11/23 at 1313 by Dary Livingston LVN Amended: Links added.
--- NOTE | 2023-01-11 14:06 | NUR ---
1100 SVN triaged. Therapist not available
[2023-01-11 14:07] VITALS: BP 81/52
--- NOTE | 2023-01-11 14:31 | NUR ---
patient stated she is in pain and would like her morphine. after checking blood pressure, one reading was 84/97. another bp reading was 80/79 tried both arms. per md obtain a manual bp. I did a manual bp which was 107/87. per md hold lasix but give metropolol and okay to give morphine dose. patient was transferred upstairs gave report to aurelio
--- NOTE | 2023-01-11 15:12 | NUR ---
Yordy/Wound consult: Pt admit DX anemia, iron deficiency, afib RVR, chronic COPD and respiratory failure, and depression per EMR. Hx T2DM though A1C consistently in 5's on Humilin BID, Lantus daily, and Victoza daily at home per EMR. Yordy 12 w/ unstageable coccyx wound cluster per WOC note. PO 25% first heart healthy meal last night pending PO intake documentation today. Noted LBM 3/9 w/ no bowel care in EMR; RD paged DO regarding routine bowel regimen if agreeable given constipation. Noted colace BID to start tonight now in EMR. Recommend Ganga smoothie BIDBD for wound healing as minimum coverage until further PO trends can be assessed; DO notified. Will continue to follow. Rec: 1. continue heart healthy diet; encourage PO 2. Ganga smoothie BIDBD for wound healing; pending physician verification in EMR 3. monitor further PO trends for ONS needs 4. routine MVI supplementation for wound healing 5. routine bowel care; 4 days constipation 6. scaled wt this admit; subsequent weekly wts Addendum: 01/11/23 at [address] Amended: Links added.
[2023-01-11 15:37] LABS: OCCULT BLOOD STOOL NEGATIVE (Neg)
--- NOTE | 2023-01-11 16:13 | NUR ---
pt. refused 1600 SVN. no resp. distress observed
--- NOTE | 2023-01-11 17:10 | NUR ---
pt has been very uncooperative with her care and unable to replace her k, continue to educate and to monitor
[2023-01-11] MEDS: JUVEN Smoothie Arginine/Glut./Ca2+Bmb (Juven 19.3pkt) 240ml cup PO SCH (17:30)
[2023-01-11 18:00] VITALS: BP 95/53
--- NOTE | 2023-01-11 18:18 | NUR ---
gave report to renu monroe
[2023-01-11] MEDS: docusate sod 100mg capsule PO SCH (19:05)
[2023-01-11] MEDS: potassium Cl 20 mEq SR tablet PO PRN ×2 (19:05→23:03)
[2023-01-11] MEDS: HYDROcodone/acetaminophen 10/325mg tab PO PRN ×2 (19:07→23:04)
[2023-01-11] MEDS: primidone 50mg tablet PO SCH (20:35)
[2023-01-11 20:37] VITALS: BP 90/54
[2023-01-11] MEDS: normal saline 1000ml 1,000 ML IV SCH (23:46)
[2023-01-12] MEDS: pantoprazole 40MG/NS 100ML BAG 100 ML IV SCH ×3 (01:57→11:00)
[2023-01-12] MEDS: HYDROcodone/acetaminophen 10/325mg tab PO PRN (05:01)
[2023-01-12 05:53] LABS: BASOPHILS # (AUTO) 0.1 X10'3 (0-0.2); BASOPHILS % (AUTO) 0.7 % (0-1); EOSINOPHILS # (AUTO) 0.2 X10'3 (0-0.9); EOSINOPHILS % (AUTO) 1.8 % (0-6); HEMATOCRIT 25.3 % (35.0-45.0); HEMOGLOBIN 7.9 g/dl (12.0-16.0); LYMPHOCYTES # (AUTO) 2.7 X10'3 (1.1-4.8); LYMPHOCYTES % (AUTO) 24.1 % (21-51); MEAN CORPUSCULAR HEMOGLOBIN 28.5 PG (27.0-31.0); MEAN CORPUSCULAR HGB CONC 31.3 g/dL (33.0-36.5); MEAN CORPUSCULAR VOLUME 91.1 FL (78-98); MEAN PLATELET VOLUME 6.7 FL (7.4-10.4); MONOCYTES # (AUTO) 0.8 X10'3 (0-0.9); MONOCYTES % (AUTO) 7.6 % (2-12); NEUTROPHILS # (AUTO) 7.2 X10'3 (1.8-7.7); NEUTROPHILS % (AUTO) 65.8 % (42-75); PLATELET COUNT 353 X10'3 (140-440); RED BLOOD COUNT 2.78 X10'6 (4.20-5.60); RED CELL DISTRIBUTION WIDTH 16.9 % (11.5-14.5)
[2023-01-12 06:00] VITALS: BP 90/60
[2023-01-12 06:19] LABS: ALBUMIN 2.3 G/DL (3.4-5.0); ANION GAP 5 (8-16); BLOOD UREA NITROGEN 8 MG/DL (7-18); BUN/CREATININE RATIO 12.3 (6.6-38.0); CALCIUM 8.3 MG/DL (8.5-10.1); CHLORIDE 105 MMOL/L (99-107); CREATININE 0.65 MG/DL (0.40-0.90); GLUCOSE 95 MG/DL (70-104); MAGNESIUM 2.1 MG/DL (1.5-2.4); POTASSIUM 4.4 MMOL/L (3.5-5.1); SODIUM 139 MMOL/L (135-145); TOTAL CARBON DIOXIDE 29.3 MMOL/L (24-32); eGFR > 90 ML/MIN
[2023-01-12] MEDS: JUVEN Smoothie Arginine/Glut./Ca2+Bmb (Juven 19.3pkt) 240ml cup PO SCH (07:30)
--- NOTE | 2023-01-12 07:46 | NUR ---
PAGER ID: [phone] MESSAGE: Pt Milady Kapoor RM [id number] pt bp is 90/60 manual, want me to admin metroprolol and lasix? please advise tayler [phone]
--- NOTE | 2023-01-12 07:47 | NUR ---
aware of pt low BP, instructed to hold AM Metroprolol and Lasix
[2023-01-12] MEDS: budesonide 0.5mg/2ml UD nebule IH SCH (07:52)
[2023-01-12] MEDS: ipratropium/albuterol 3ml nebule NEB SCH ×2 (07:53→11:19)
[2023-01-12] MEDS ORDERED: azithromycin 250mg tablet PO SCH (08:00)
[2023-01-12] MEDS: furosemide 20MG tablet PO SCH (08:00)
[2023-01-12] MEDS: metoprolol tartrate 25mg tablet PO SCH (08:00)
[2023-01-12] MEDS: K and/or MAG REPLACEMENT MC SCH (08:00)
[2023-01-12] MEDS: predniSONE 20 mg tablet PO SCH (08:09)
[2023-01-12] MEDS: FLUoxetine 20mg capsule PO SCH (08:10)
[2023-01-12] MEDS: duloxetine 30mg CAPSULE.DR PO SCH (08:10)
[2023-01-12] MEDS: docusate sod 100mg capsule PO SCH (08:10)
[2023-01-12] MEDS: allopurinol 100mg tablet PO SCH (08:11)
[2023-01-12] MEDS: guaiFENesin ER 600mg tablet PO SCH (08:11)
[2023-01-12] MEDS: loratadine 10mg tablet PO SCH (08:11)
[2023-01-12] MEDS: levoTHYROXINE 100mcg tablet PO SCH (08:11)
[2023-01-12] MEDS: topiramate 25mg tablet PO SCH (08:14)
[2023-01-12] MEDS: roflumilast 500mcg tablet PO SCH (08:15)
[2023-01-12] MEDS ORDERED: ascorbic acid 500mg tablet PO SCH (08:30)
[2023-01-12] MEDS: morphine 2 MG/ML inj. syringe IV PRN (09:51)
[2023-01-12] MEDS ORDERED: ferrous sulfate ER tablet PO (10:40)
--- NOTE | 2023-01-12 12:00 | NUR ---
Pt dc home, escorted to private vehicle by staff, pt assisted into vehicle. PIV dc with no complaints noted, no s/s of infection noted. Pt VSS, alert and appropriate for discharge. Pt educated and informed of all discharge instructions and she and friend verbally expressed understanding of all instructions. Pt informed staff she has a live in healthcare market consultant that will assist her with wound care, and all personal care once at home also. Pt had no questions or concerns at time of DC.
[2023-01-12 12:35] VITALS: BP 102/64
[2023-01-12] MEDS ORDERED: ferrous sulfate ER tablet 140 MG TABLET.ER PO SCH (20:00)
[2023-01-12] MEDS ORDERED: apixaban 2.5mg tablet PO SCH (20:00)
[2023-01-13] MEDS ORDERED: aspirin 81mg, enteric-coated 1 TAB TABLET.DR PO SCH (08:00)
== END 2023-01-12 12:00 | disposition home health service (06) | DRG 135 ==
LOC: ER 13:59 → UNDOADMIN 20:05 → ED HOLD 20:05 → PCU 3S 01-10 15:18 → ORTHO 4S 01-11 11:08
PROVIDERS: ADMIT Internal Medicine; ATTEND Family Medicine
PROC: 30233N1 Transfusion of Nonautologous Red Blood Cells into Peripheral Vein, Percutaneous Approach (ICD-10-PCS; principal; 2023-01-10)
DX: S22.42XA Multiple fractures of ribs, left side, initial encounter for closed fracture (principal); J18.9 Pneumonia, unspecified organism; J96.10 Chronic respiratory failure, unspecified whether with hypoxia or hypercapnia; I95.89 Other hypotension; I11.0 Hypertensive heart disease with heart failure; J44.0 Chronic obstructive pulmonary disease with (acute) lower respiratory infection; I50.9 Heart failure, unspecified; D62 Acute posthemorrhagic anemia; F32.A Depression, unspecified; Z66 Do not resuscitate; D50.9 Iron deficiency anemia, unspecified; E11.9 Type 2 diabetes mellitus without complications; G40.909 Epilepsy, unspecified, not intractable, without status epilepticus; I48.91 Unspecified atrial fibrillation; E03.9 Hypothyroidism, unspecified; E78.00 Pure hypercholesterolemia, unspecified; I25.10 Atherosclerotic heart disease of native coronary artery without angina pectoris; R29.6 Repeated falls; G47.30 Sleep apnea, unspecified; G89.29 Other chronic pain; K21.9 Gastro-esophageal reflux disease without esophagitis; M10.9 Gout, unspecified; M54.9 Dorsalgia, unspecified; W01.0XXA Fall on same level from slipping, tripping and stumbling without subsequent striking against object, initial encounter; G43.909 Migraine, unspecified, not intractable, without status migrainosus; Z79.01 Long term (current) use of anticoagulants; Z79.4 Long term (current) use of insulin; Z79.51 Long term (current) use of inhaled steroids; Z79.82 Long term (current) use of aspirin; Z79.899 Other long term (current) drug therapy; I25.2 Old myocardial infarction; Z82.49 Family history of ischemic heart disease and other diseases of the circulatory system; Z82.5 Family history of asthma and other chronic lower respiratory diseases; Z83.3 Family history of diabetes mellitus; Z90.710 Acquired absence of both cervix and uterus; Z95.5 Presence of coronary angioplasty implant and graft; Y93.89 Activity, other specified; Y92.89 Other specified places as the place of occurrence of the external cause; Y99.8 Other external cause status
CPT/HCPCS: 36415; 36430; 71045; 71260; 74177; 80048; 80053; 82272; 83036; 83540; 83550; 83735; 83880; 84484; 85025; 85027; 85610; 85730; 86885; 86900; 86901; 86920; 87081; 93005; 94640; 94760; 96361; 96374; 97161; 97530; 99285; A6213; A6223; A6258; A6446; A6449; C9113; G0378; J0456; J0696; J1756; J2270; J3490; J7030; J7040; J7050; J7512; P9016; Q9967

== ENCOUNTER 2023-02-01 21:59 | Emergency (ER) | payer MEDICAID ==
[~2023-02-01] VITALS: Ht 162.6 cm; Wt 68.2 kg
[~2023-02-01 21:59] MED LIST changes: -CLOP75TA34 PO; -FURO-150 PO; -LEVO-65 PO; +ferrous sulfate ER tablet PO
[2023-02-01 22:38] VITALS: BP 100/69
[2023-02-02] MEDS ORDERED: APIX5TAB3 PO (18:22)
[2023-02-02] MEDS ORDERED: GABA800T11 PO (18:26)
[2023-02-02] MEDS ORDERED: NITR0.4T48 SL (18:26)
[2023-02-02] MEDS ORDERED: FURO20TA4 PO (18:26)
[2023-02-02] MEDS ORDERED: POTA-207 PO (18:26)
[2023-02-02] MEDS ORDERED: DILT60TA9 PO (18:27)
[2023-02-02] MEDS ORDERED: ASCO-100 PO (18:28)
== END 2023-02-02 03:39 | disposition left against medical advice (07) ==
LOC: ER 22:00
DX: M79.604 Pain in right leg (principal); M79.605 Pain in left leg; Z53.21 Procedure and treatment not carried out due to patient leaving prior to being seen by health care provider
CPT/HCPCS: 99281; A4615

== ENCOUNTER 2023-02-02 13:14 | Inpatient (IN) | payer MEDICAID ==
[~2023-02-02] VITALS: Ht 162.6 cm; Wt 78.3 kg
[2023-02-02] MEDS ORDERED: diltiazem-NS 100mg/100ml 100 ML IV ONE (14:25)
[2023-02-02] MEDS ORDERED: diltiazem 5mg/ml 5ml inj. IV ONE ×3 (14:25→16:25)
--- NOTE | 2023-02-02 14:31 | NUR ---
DR ARSHAD AT BEDSIDE.
--- NOTE | 2023-02-02 14:45 | NUR ---
rn trying for iv so cardizem drip can be started.
[2023-02-02 15:01] LABS: BASOPHILS % (AUTO) 0.5 % (0-1); EOSINOPHILS % (AUTO) 0.5 % (0-6); LYMPHOCYTES # (AUTO) 1.3 X10'3 (1.1-4.8); LYMPHOCYTES % (AUTO) 18.2 % (21-51); MEAN PLATELET VOLUME 6.5 FL (7.4-10.4); MONOCYTES # (AUTO) 0.7 X10'3 (0-0.9); NEUTROPHILS # (AUTO) 5.2 X10'3 (1.8-7.7); NEUTROPHILS % (AUTO) 71.8 % (42-75); WHITE BLOOD COUNT 7.3 X10'3 (4.5-11.0)
--- NOTE | 2023-02-02 15:01 | NUR ---
RN PAGED PICC RN TO OBTAIN LINE AND THEY ARE NOT WORKING. EH LEMUS WILL ATTEMPT TO GET LINE USING US. DR ARSHAD NOTIFIED.
--- NOTE | 2023-02-02 15:01 | NUR ---
PT REFUSED STRAIGHT CATH. URINE WILL BE COLLECTED CLEAN CATCH.
[2023-02-02 15:23] LABS: ALANINE AMINOTRANSFERASE 11 U/L (12-78); ALBUMIN 2.4 G/DL (3.4-5.0); ALBUMIN/GLOBULIN RATIO 0.6 (1.1-1.5); ALKALINE PHOSPHATASE 133 IU/L (46-116); ANION GAP 8 (8-16); ASPARTATE AMINO TRANSFERASE 14 U/L (10-37); BILIRUBIN,TOTAL 0.4 MG/DL (0.1-1.0); BLOOD UREA NITROGEN 13 MG/DL (7-18); BUN/CREATININE RATIO 19.4 (10.0-20.0); CALCIUM 9.1 MG/DL (8.5-10.1); CHLORIDE 103 MMOL/L (99-107); CREATININE 0.67 MG/DL (0.40-0.90); GLUCOSE 104 MG/DL (70-104); POTASSIUM 3.6 MMOL/L (3.5-5.1); SODIUM 139 MMOL/L (135-145); TOTAL CARBON DIOXIDE 28.4 MMOL/L (24-32); TOTAL PROTEIN 6.1 G/DL (6.4-8.2); eGFR 88 ML/MIN
--- NOTE | 2023-02-02 15:23 | NUR ---
RN WAS UNABLE TO OBTAIN IV USING US. DR ARSHAD NOTIFIED AND IS AT BEDSIDE TRYING TO OBTAIN IV.
[2023-02-02 15:29] LABS: HEMATOCRIT 36.5 % (35.0-45.0); HEMOGLOBIN 11.4 g/dl (12.0-16.0); MEAN CORPUSCULAR HGB CONC 31.3 g/dL (33.0-36.5); MEAN CORPUSCULAR VOLUME 92.6 FL (78-98); PLATELET COUNT 277 X10'3 (140-440); RED BLOOD COUNT 3.94 X10'6 (4.20-5.60)
[2023-02-02 15:34] LABS: CLARITY,URINE CLOUDY (Clear); COLOR,URINE YELLOW (Yellow); GLUCOSE, URINE 100 mg/dl (Neg); KETONES,URINE NEGATIVE (Neg); LEUKOCYTE ESTERASE ,URINE MODERATE (Neg); NITRITES, URINE NEGATIVE (Neg); OCCULT BLOOD,URINE SMALL (Neg); PROTEIN,URINE TRACE mg/dl (Neg); UROBILINOGEN,URINE 0.2 E.U/dL (0.2-1.0)
[2023-02-02 15:38] LABS: UA COLLECTION TYPE CLN CATCH MIDSTREAM
[2023-02-02] MEDS ORDERED: morphine 4 MG/ML inj SYRINge IV PRN (15:45)
[2023-02-02] MEDS ORDERED: ondansetron/PF 4mg/2ml inj IV ONE (15:45)
--- NOTE | 2023-02-02 15:53 | NUR ---
updated pt contact marichuy talbot on pt status by phone.
--- NOTE | 2023-02-02 15:58 | NUR ---
RN CONFIRMED WITH DR ARSHAD TO GIVE 2ND BOLUS OF CARDIZEM 10MG.
[2023-02-02 15:59] LABS: WBC,URINE TNTC /HPF (0-4)
[2023-02-02 16:00] LABS: BACTERIA,URINE 1+ /HPF (Neg); SQUAMOUS EPITHELIAL CELL,UR FEW /LPF (FEW); YEAST MANY /HPF (NEGATIVE)
[2023-02-02] MEDS ORDERED: furosemide 10 MG/1 ML 10ml inj IV ONE (16:25)
--- NOTE | 2023-02-02 16:25 | NUR ---
RN NOTIFIED DR ARSHAD THAT HR FLUCTUATING BETWEEN 111- 133 AND BP 105/70. PER DR ARSHAD INCREASE CARDIZEM DRIP TO 10 MG HR AND HE WILL ORDER A 3RD BOLUS OF 10 MG.
[2023-02-02] MEDS ORDERED: potassium Cl 40MEQ/1/2NS 520ml 520 ML IV PRN (16:35)
[2023-02-02] MEDS ORDERED: mag hydrox/Alum hydrox/simeth 30ml oral suspension PO PRN (16:35)
[2023-02-02] MEDS ORDERED: magnesium hydroxide 30ml (MOM) UD suspension PO PRN (16:35)
[2023-02-02] MEDS ORDERED: magnesium 4gm in 100ml NS 100 ML IV PRN (16:35)
[2023-02-02] MEDS ORDERED: potassium Cl 20 mEq SR tablet PO PRN ×2 (16:35)
[2023-02-02] MEDS ORDERED: acetaminophen 325mg tablet PO PRN (16:35)
[2023-02-02] MEDS ORDERED: magnesium Cl slow-release 64mg tablet PO PRN (16:35)
--- NOTE | 2023-02-02 16:35 | NUR ---
rn will reassess bp after bolus of cardizem before increasing cardizem drip to 10mg/hr d/t pt got morphine and bp 105/70
[2023-02-02] MEDS ORDERED: glucagon, human recombinant 1mg kit SUBCUT PRN (16:40)
[2023-02-02] MEDS ORDERED: DEXTROSE 15 GM of carb/4 tabs (each vial/BOTTLE has 4 tablets) PO PRN ×2 (16:40)
[2023-02-02] MEDS ORDERED: MESSAGE TO PHARMACY PO ONE (16:40)
[2023-02-02] MEDS ORDERED: dextrose 50%-water 50ml dispensing syringe IV PRN ×2 (16:40)
--- NOTE | 2023-02-02 17:31 | NUR ---
Patient eating dinner.Call light within reach.
--- NOTE | 2023-02-02 18:05 | NUR ---
RN NOTIFIED DR ARSHAD THAT PT BP 97/70 AND HR 123 CARDIZEM DRIP RUNNING AT 10MG/HR. PER DR ARSHAD DECREASE DRIP TO 7MG/HR
--- NOTE | 2023-02-02 18:11 | NUR ---
PT URINE LEAKED OUT OF BEDPAN. RN UNABLE TO CHG HER AT THIS TIME PHARMACIST IS AT BEDSIDE. PT AGREED TO PUREWICK. RN WILL HANDOFF TO ONCOMING RN THAT BED NEEDS TO BE CHG AND PUREWICK APPLIED.
--- NOTE | 2023-02-02 18:21 | NUR ---
EH ACUNAG BED AND VAUGHN FlightCaster.
[2023-02-02] MEDS ORDERED: APIX5TAB3 PO (18:22)
[2023-02-02] MEDS ORDERED: FURO20TA4 PO (18:26)
[2023-02-02] MEDS ORDERED: POTA-207 PO (18:26)
[2023-02-02] MEDS ORDERED: GABA800T11 PO (18:26)
[2023-02-02] MEDS ORDERED: NITR0.4T48 SL (18:26)
[2023-02-02] MEDS ORDERED: DILT60TA9 PO (18:27)
[2023-02-02] MEDS ORDERED: ASCO-100 PO (18:28)
[2023-02-02] MEDS: K and/or MAG REPLACEMENT MC SCH (20:00)
[2023-02-02] MEDS ORDERED: morphine 4 MG/ML inj SYRINge IV ONE (20:30)
[2023-02-02] MEDS: docusate sod 100mg capsule PO SCH (20:48)
[2023-02-02] MEDS: insulin glargine (Lantus) pen - multi-dose SQ SCH (21:00)
[2023-02-02] MEDS ORDERED: VANCOmycin 1250MG/NS 250ml Bag 250 ML IV ONE (22:25)
--- NOTE | 2023-02-03 00:19 | NUR ---
ASSUMED CARE OF PT @ 0000 AFTER RECIEVING REPORT FROM TONI STAUFFER.
[2023-02-03] MEDS: piperacillin/tazo 3.375gm/50ml 50 ML IV SCH ×2 (00:30→16:57)
[2023-02-03] MEDS: morphine 2 MG/ML inj. syringe IV PRN ×5 (00:31→21:22)
[2023-02-03] MEDS: ondansetron/PF 4mg/2ml inj IV PRN ×2 (03:20→21:28)
[2023-02-03 03:23] LABS: BASOPHILS % (AUTO) 0.4 % (0-1); EOSINOPHILS # (AUTO) 0.1 X10'3 (0-0.9); EOSINOPHILS % (AUTO) 0.7 % (0-6); HEMATOCRIT 34.5 % (35.0-45.0); HEMOGLOBIN 10.8 g/dl (12.0-16.0); LYMPHOCYTES # (AUTO) 1.9 X10'3 (1.1-4.8); MEAN CORPUSCULAR HEMOGLOBIN 29.6 PG (27.0-31.0); MEAN CORPUSCULAR HGB CONC 31.2 g/dL (33.0-36.5); MEAN CORPUSCULAR VOLUME 94.8 FL (78-98); MEAN PLATELET VOLUME 6.8 FL (7.4-10.4); MONOCYTES # (AUTO) 0.9 X10'3 (0-0.9); MONOCYTES % (AUTO) 12.4 % (2-12); NEUTROPHILS # (AUTO) 4.4 X10'3 (1.8-7.7); NEUTROPHILS % (AUTO) 60.5 % (42-75); PLATELET COUNT 241 X10'3 (140-440); RED BLOOD COUNT 3.64 X10'6 (4.20-5.60); RED CELL DISTRIBUTION WIDTH 19.6 % (11.5-14.5); WHITE BLOOD COUNT 7.2 X10'3 (4.5-11.0)
[2023-02-03 03:37] LABS: ALANINE AMINOTRANSFERASE 14 U/L (12-78); ALBUMIN 2.2 G/DL (3.4-5.0); ALBUMIN/GLOBULIN RATIO 0.7 (1.1-1.5); ALKALINE PHOSPHATASE 126 IU/L (46-116); ANION GAP 2 (8-16); ASPARTATE AMINO TRANSFERASE 12 U/L (10-37); BILIRUBIN,TOTAL 0.6 MG/DL (0.1-1.0); CALCIUM 9.1 MG/DL (8.5-10.1); CHLORIDE 103 MMOL/L (99-107); CHOLESTEROL 186 MG/DL (0-200); CREATININE 0.72 MG/DL (0.40-0.90); GLUCOSE 129 MG/DL (70-104); LDL CHOLESTEROL 123 MG/DL (50-100); MAGNESIUM 1.9 MG/DL (1.5-2.4); POTASSIUM 3.7 MMOL/L (3.5-5.1); SODIUM 140 MMOL/L (135-145); TOTAL CARBON DIOXIDE 35.1 MMOL/L (24-32); TOTAL PROTEIN 5.5 G/DL (6.4-8.2); TRIGLYCERIDES 119 MG/DL (20-135); eGFR 81 ML/MIN
[2023-02-03 03:39] LABS: BLOOD UREA NITROGEN 15 MG/DL (7-18); BUN/CREATININE RATIO 20.8 (10.0-20.0); CHOL/HDL RATIO 5.5 (0.00-4.99); HDL CHOLESTEROL 34 MG/DL (35-60)
[2023-02-03 04:03] LABS: ANISOCYTOSIS 2+; PLATELET ESTIMATE NORMAL
[2023-02-03 04:04] LABS: POIKILOCYTOSIS FEW; STOMATOCYTES 2+
--- NOTE | 2023-02-03 04:34 | NUR ---
PT. PLACE ON HOSPITAL BED FOR COMFORT WHILE WAITING FOR INPATIENT ROOM.
[2023-02-03] MEDS: K and/or MAG REPLACEMENT MC SCH ×2 (08:00→20:00)
[2023-02-03] MEDS ORDERED: non-formulary drug (Albuterol Sulfate (Ventolin Hfa) 2 PUFFS) INH SCH (09:05)
[2023-02-03] MEDS ORDERED: nitroGLYCERIN 0.4mg SUBLingual tab SL PRN (09:05)
[2023-02-03] MEDS ORDERED: HYDROcodone/acetaminophen 10/325mg tab PO PRN (09:05)
[2023-02-03] MEDS ORDERED: LIRAGLUTIDE 0.6 MG/0.1 ML PEN.INJCTR SQ SCH (09:05)
[2023-02-03] MEDS: docusate sod 100mg capsule PO SCH ×2 (09:44→20:39)
[2023-02-03] MEDS: aspirin 81mg, enteric-coated 1 TAB TABLET.DR PO SCH (09:44)
[2023-02-03] MEDS: levoTHYROXINE 100mcg tablet PO SCH (09:44)
--- NOTE | 2023-02-03 09:55 | NUR ---
rn collected blood for vanc trough and sent to lab.
[2023-02-03] MEDS: potassium Cl 20 mEq SR tablet PO SCH (10:03)
[2023-02-03] MEDS: predniSONE 20 mg tablet PO SCH (10:03)
[2023-02-03] MEDS: furosemide 20MG tablet PO SCH (10:03)
--- NOTE | 2023-02-03 10:46 | NUR ---
RN PAGED DR FRANKS TO INQUIRE ABOUT CONT CARDIZEM DRIP VS PO CARDIZEM AND TO INFORM MD PT IS A HARD STICK/UNABLE TO OBTAIN IV/PICC TEAM NOT AT HOSPITAL AND PT HAS ANTIBIOTICS THAT CAN NOT BE RAN TOGETHER.
--- NOTE | 2023-02-03 11:26 | NUR ---
HOSPITALIST CALLED BACK. SHE IS AWARE THE CARDIZEM DRIP HAS TIMED OUT AND WILL ARE GOOD TO GIVE CARDIZEM PO ORDERED.
--- NOTE | 2023-02-03 12:25 | NUR ---
RN UPDATED BATSHEVA JENNINGS PT CONTACT ABOUT PT STATUS.
[2023-02-03] MEDS: vancomycin/NS 1 GM ADD-VANTAGE 250 ML IV SCH ×2 (12:32→21:24)
[2023-02-03] MEDS: apixaban 5mg tablet PO SCH ×2 (12:33→20:54)
[2023-02-03] MEDS: loratadine 10mg tablet PO SCH (12:34)
[2023-02-03] MEDS: diltiazem 30mg tablet PO SCH ×2 (12:34→20:39)
[2023-02-03] MEDS: HYDROcodone/acetaminophen 5mg/325mg tablet PO PRN (12:46)
[2023-02-03] MEDS ORDERED: non-formulary drug (Gabapentin 1 TAB) PO SCH (13:00)
[2023-02-03] MEDS ORDERED: ipratropium/albuterol 3ml nebule NEB SCH (13:00)
--- NOTE | 2023-02-03 13:59 | NUR ---
RN ATTEMPTED TO CALL REPORT FOR PT TO GO TO RM [id number] AND RN TOOK PT DOWN FOR DISCHARGE AND WILL CALL BACK.
--- NOTE | 2023-02-03 14:27 | NUR ---
RN ATTEMPTED TO CALL REPORT TO RN FOR PT TO TRANSFER TO RM [id number] AND RN IS ON BREAK AND WILL CALL BACK.
[2023-02-03] MEDS ORDERED: albuterol 2.5 MG/3 ML nebule NEB SCH (17:15)
[2023-02-03] MEDS: albuterol 2.5 MG/3 ML nebule NEB PRN (19:33)
[2023-02-03] MEDS: budesonide 0.5mg/2ml UD nebule IH SCH (19:34)
[2023-02-03] MEDS ORDERED: INSULIN REGULAR SQ SCH (20:00)
[2023-02-03] MEDS ORDERED: INSULIN ISOPHANE SQ SCH (20:00)
[2023-02-03] MEDS: FERROUS SULFATE 142 MG TABLET.ER (45mg elemental) PO SCH (20:40)
[2023-02-03] MEDS: ascorbic acid 500mg tablet PO SCH (20:41)
[2023-02-03] MEDS: metoprolol tartrate 25mg tablet PO SCH (20:54)
[2023-02-03] MEDS: gabapentin 400mg capsule PO SCH (20:55)
[2023-02-03] MEDS: primidone 50mg tablet PO SCH (20:58)
[2023-02-03] MEDS: insulin glargine (Lantus) pen - multi-dose SQ SCH (21:00)
[2023-02-03 21:44] VITALS: BP 108/78
[2023-02-03 22:00] VITALS: BP 112/69
--- NOTE | 2023-02-04 | NUR ---
Pt. is awake alert oriented x4 speech whispered. C/o leg and feet pain and generalized discomfort requesting pain relief with Morphine; tolerated well effective relief. Pt. has a peripheral IV at . pt. has a purewick with mod amt yellow hazy appearing urine pt. is on antibiotics. Pt. is passing flatus no stool. Bilateral legs wrapped in Kerlix. toes are bright pink color. Plan Wound care as ordered.
[2023-02-04] MEDS: morphine 2 MG/ML inj. syringe IV PRN ×5 (01:20→23:35)
[2023-02-04] MEDS: piperacillin/tazo 3.375gm/50ml 50 ML IV SCH ×4 (01:49→23:35)
[2023-02-04] MEDS: diltiazem 30mg tablet PO SCH ×4 (01:53→19:35)
[2023-02-04 02:30] VITALS: BP 113/68
[2023-02-04 07:30] VITALS: BP 93/58
[2023-02-04] MEDS ORDERED: VANCOMYCIN LEVEL IV ONE (07:30)
[2023-02-04] MEDS: K and/or MAG REPLACEMENT MC SCH ×2 (08:00→19:45)
[2023-02-04] MEDS: LIRAGLUTIDE 0.6 MG/0.1 ML PEN.INJCTR SQ SCH (08:00)
[2023-02-04] MEDS ORDERED: non-formulary drug (Tiotropium Bromide (Spiriva Respimat) 2 PUFFS) INH SCH (08:00)
[2023-02-04] MEDS: aspirin 81mg, enteric-coated 1 TAB TABLET.DR PO SCH (08:24)
[2023-02-04 08:25] LABS: BASOPHILS % (AUTO) 0.5 % (0-1); EOSINOPHILS % (AUTO) 0.9 % (0-6); HEMATOCRIT 34.3 % (35.0-45.0); HEMOGLOBIN 10.5 g/dl (12.0-16.0); LYMPHOCYTES # (AUTO) 1.6 X10'3 (1.1-4.8); LYMPHOCYTES % (AUTO) 29.1 % (21-51); MEAN CORPUSCULAR HEMOGLOBIN 29.4 PG (27.0-31.0); MEAN CORPUSCULAR HGB CONC 30.5 g/dL (33.0-36.5); MEAN CORPUSCULAR VOLUME 96.4 FL (78-98); MEAN PLATELET VOLUME 6.6 FL (7.4-10.4); MONOCYTES # (AUTO) 0.6 X10'3 (0-0.9); MONOCYTES % (AUTO) 10.9 % (2-12); NEUTROPHILS # (AUTO) 3.1 X10'3 (1.8-7.7); NEUTROPHILS % (AUTO) 58.6 % (42-75); PLATELET COUNT 220 X10'3 (140-440); RED BLOOD COUNT 3.56 X10'6 (4.20-5.60); RED CELL DISTRIBUTION WIDTH 19.7 % (11.5-14.5); WHITE BLOOD COUNT 5.4 X10'3 (4.5-11.0)
[2023-02-04] MEDS: docusate sod 100mg capsule PO SCH ×2 (08:26→19:35)
[2023-02-04] MEDS: predniSONE 20 mg tablet PO SCH (08:26)
[2023-02-04] MEDS: roflumilast 500mcg tablet PO SCH (08:26)
[2023-02-04] MEDS: ascorbic acid 500mg tablet PO SCH ×2 (08:26→19:36)
[2023-02-04] MEDS: budesonide 0.5mg/2ml UD nebule IH SCH ×2 (08:27→20:37)
[2023-02-04] MEDS: albuterol 2.5 MG/3 ML nebule NEB PRN ×2 (08:27→20:36)
[2023-02-04] MEDS: levoTHYROXINE 100mcg tablet PO SCH (08:27)
[2023-02-04] MEDS: apixaban 5mg tablet PO SCH ×2 (08:27→19:35)
[2023-02-04] MEDS: loratadine 10mg tablet PO SCH (08:27)
[2023-02-04] MEDS: potassium Cl 20 mEq SR tablet PO SCH (08:27)
[2023-02-04] MEDS: furosemide 20MG tablet PO SCH (08:27)
[2023-02-04] MEDS: FERROUS SULFATE 142 MG TABLET.ER (45mg elemental) PO SCH ×2 (08:28→19:34)
[2023-02-04] MEDS: allopurinol 100mg tablet PO SCH (08:28)
[2023-02-04] MEDS: gabapentin 400mg capsule PO SCH ×3 (08:29→19:41)
[2023-02-04] MEDS: ERTUGLIFLOZIN PIDOLATE 15 MG PO SCH (08:30)
[2023-02-04] MEDS: duloxetine 30mg CAPSULE.DR PO SCH (08:35)
[2023-02-04] MEDS: metoprolol tartrate 25mg tablet PO SCH (08:35)
[2023-02-04] MEDS: vancomycin/NS 1 GM ADD-VANTAGE 250 ML IV SCH ×2 (08:35→19:32)
[2023-02-04 08:40] LABS: ALANINE AMINOTRANSFERASE 12 U/L (12-78); ALBUMIN/GLOBULIN RATIO 0.6 (1.1-1.5); ALKALINE PHOSPHATASE 104 IU/L (46-116); ANION GAP 4 (8-16); ASPARTATE AMINO TRANSFERASE 15 U/L (10-37); BILIRUBIN,TOTAL 0.5 MG/DL (0.1-1.0); BLOOD UREA NITROGEN 11 MG/DL (7-18); BUN/CREATININE RATIO 15.5 (10.0-20.0); CALCIUM 8.4 MG/DL (8.5-10.1); CHLORIDE 103 MMOL/L (99-107); CREATININE 0.71 MG/DL (0.40-0.90); GLUCOSE 132 MG/DL (70-104); POTASSIUM 3.7 MMOL/L (3.5-5.1); SODIUM 139 MMOL/L (135-145); TOTAL CARBON DIOXIDE 32.2 MMOL/L (24-32); TOTAL PROTEIN 5.3 G/DL (6.4-8.2); eGFR 82 ML/MIN
[2023-02-04 08:47] LABS: VANCOMYCIN,TROUGH 14.9 UG/ML (6.0-14.0)
[2023-02-04] MEDS: HYDROcodone/acetaminophen 5mg/325mg tablet PO PRN ×2 (10:20→15:24)
[2023-02-04 11:22] VITALS: BP 104/68
--- NOTE | 2023-02-04 13:28 | NUR ---
DM Consult: Pt hx DM though last A1C 5.9% 01/10/23 on regular/fluid restricted diet this admit per EMR. A1C appropriate recommend continuing regular diet. Addendum: 02/04/23 at [address] Amended: Links added.
[2023-02-04 15:00] VITALS: BP 111/64
[2023-02-04 18:00] VITALS: BP 98/59
[2023-02-04] MEDS: furosemide 40mg/4ml inj IV SCH (19:30)
[2023-02-04] MEDS: HYDROcodone/acetaminophen 10/325mg tab PO PRN (19:40)
[2023-02-04] MEDS: primidone 50mg tablet PO SCH (19:41)
[2023-02-04] MEDS: insulin glargine (Lantus) pen - multi-dose SQ SCH (21:57)
[2023-02-04 22:30] VITALS: BP 113/78
--- NOTE | 2023-02-05 01:28 | NUR ---
Pt. is awake alert oriented in good spirits on 02 2L NC. Skin is ecchymotic and Arm and shoulder blisters noted tegaderm dressing to open areas. IV /SL in left arm intact antibiotic infusing well. pt. has Pure wick with large amt of yellow hazy urine. Bilateral leg wound dressings intact, small amt yellow drainage. C/o generalized pain and leg pain medicated x2 as needed. Tolerated well. Plan for pt/wc eval. Will also need palliative pain eval. Pt. [facility] dietary services director has Vaccine card.
[2023-02-05 02:56] VITALS: BP 114/76
[2023-02-05] MEDS: diltiazem 30mg tablet PO SCH ×4 (02:59→20:08)
[2023-02-05] MEDS: HYDROcodone/acetaminophen 10/325mg tab PO PRN ×4 (03:00→21:57)
[2023-02-05] MEDS: ipratropium/albuterol 3ml nebule NEB PRN ×2 (04:35→07:06)
[2023-02-05 07:00] VITALS: BP 119/82
[2023-02-05] MEDS: budesonide 0.5mg/2ml UD nebule IH SCH ×2 (07:06→20:33)
[2023-02-05] MEDS: piperacillin/tazo 3.375gm/50ml 50 ML IV SCH ×2 (08:00→16:00)
[2023-02-05] MEDS: K and/or MAG REPLACEMENT MC SCH ×3 (08:00→20:24)
[2023-02-05] MEDS: LIRAGLUTIDE 0.6 MG/0.1 ML PEN.INJCTR SQ SCH (08:00)
[2023-02-05] MEDS: allopurinol 100mg tablet PO SCH (08:09)
[2023-02-05] MEDS: aspirin 81mg, enteric-coated 1 TAB TABLET.DR PO SCH (08:09)
[2023-02-05] MEDS: apixaban 5mg tablet PO SCH ×2 (08:09→20:09)
[2023-02-05] MEDS: loratadine 10mg tablet PO SCH (08:10)
[2023-02-05] MEDS: predniSONE 20 mg tablet PO SCH (08:10)
[2023-02-05] MEDS: duloxetine 30mg CAPSULE.DR PO SCH (08:10)
[2023-02-05] MEDS: potassium Cl 20 mEq SR tablet PO SCH ×2 (08:10→21:46)
[2023-02-05] MEDS: ascorbic acid 500mg tablet PO SCH ×2 (08:11→20:10)
[2023-02-05] MEDS: docusate sod 100mg capsule PO SCH ×2 (08:11→20:08)
[2023-02-05] MEDS: gabapentin 400mg capsule PO SCH ×3 (08:12→20:09)
[2023-02-05] MEDS: furosemide 40mg/4ml inj IV SCH ×2 (08:12→20:09)
[2023-02-05] MEDS: roflumilast 500mcg tablet PO SCH (08:12)
[2023-02-05] MEDS: levoTHYROXINE 100mcg tablet PO SCH (08:12)
[2023-02-05] MEDS: FERROUS SULFATE 142 MG TABLET.ER (45mg elemental) PO SCH ×2 (08:12→20:08)
[2023-02-05] MEDS: vancomycin/NS 1 GM ADD-VANTAGE 250 ML IV SCH ×2 (08:23→20:07)
[2023-02-05] MEDS: ERTUGLIFLOZIN PIDOLATE 15 MG PO SCH (08:28)
[2023-02-05 08:52] LABS: BASOPHILS % (AUTO) 0.5 % (0-1); EOSINOPHILS % (AUTO) 0.7 % (0-6); HEMATOCRIT 38.6 % (35.0-45.0); HEMOGLOBIN 11.7 g/dl (12.0-16.0); LYMPHOCYTES # (AUTO) 1.8 X10'3 (1.1-4.8); LYMPHOCYTES % (AUTO) 27.9 % (21-51); MEAN CORPUSCULAR HEMOGLOBIN 29.5 PG (27.0-31.0); MEAN CORPUSCULAR HGB CONC 30.3 g/dL (33.0-36.5); MEAN CORPUSCULAR VOLUME 97.3 FL (78-98); MEAN PLATELET VOLUME 6.4 FL (7.4-10.4); MONOCYTES # (AUTO) 0.7 X10'3 (0-0.9); MONOCYTES % (AUTO) 10.3 % (2-12); NEUTROPHILS % (AUTO) 60.6 % (42-75); PLATELET COUNT 247 X10'3 (140-440); RED BLOOD COUNT 3.97 X10'6 (4.20-5.60); RED CELL DISTRIBUTION WIDTH 20.2 % (11.5-14.5); WHITE BLOOD COUNT 6.5 X10'3 (4.5-11.0)
[2023-02-05 09:31] LABS: % IRON SATURATION 21 % (11-46); IRON 44 UG/DL (49-151); TOTAL IRON BINDING CAPACITY 206 UG/DL (259-388)
[2023-02-05 09:43] LABS: ALANINE AMINOTRANSFERASE 14 U/L (12-78); ALBUMIN 2.5 G/DL (3.4-5.0); ALBUMIN/GLOBULIN RATIO 0.6 (1.1-1.5); ALKALINE PHOSPHATASE 110 IU/L (46-116); ANION GAP 8 (8-16); ASPARTATE AMINO TRANSFERASE 15 U/L (10-37); BILIRUBIN,TOTAL 0.3 MG/DL (0.1-1.0); BLOOD UREA NITROGEN 13 MG/DL (7-18); BUN/CREATININE RATIO 14.6 (10.0-20.0); CALCIUM 8.9 MG/DL (8.5-10.1); CHLORIDE 103 MMOL/L (99-107); CREATININE 0.89 MG/DL (0.40-0.90); FERRITIN 259 NG/ML (8-252); GLUCOSE 162 MG/DL (70-104); MAGNESIUM 2.2 MG/DL (1.5-2.4); POTASSIUM 3.4 MMOL/L (3.5-5.1); SODIUM 142 MMOL/L (135-145); TOTAL CARBON DIOXIDE 31.1 MMOL/L (24-32); TOTAL PROTEIN 6.4 G/DL (6.4-8.2); eGFR 63 ML/MIN
[2023-02-05] MEDS: insulin Lispro (HumaLOG) vial - multi-dose SQ SCH ×3 (09:54→13:59)
[2023-02-05 11:00] VITALS: BP 94/55
[2023-02-05] MEDS: morphine 2 MG/ML inj. syringe IV PRN ×2 (11:09→17:52)
--- NOTE | 2023-02-05 15:11 | NUR ---
PRESSURE ULCER EDUCATION: DEFINITION: A pressure ulcer is an area of skin that breaks down when you stay in one position too long. The constant pressure against the skin reduces the blood flow to that area and the affected tissue dies. CAUSES: "Being bedridden or in a wheelchair "Fragile skin "Having a chronic condition, such as diabetes or vascular disease "Inability to move certain parts of your body without assistance "Older age "Incontinence of urine or stool SYMPTOMS: "A reddened area that DOES NOT turn white when pressed on - this can be the beginning of a pressure ulcer "A blister, deep sore or a crater - these can be advanced pressure ulcers FIRST AID: "Relieve the pressure on this area "Keep the area clean and dry "Call your primary doctor if you see any of the above symptoms "DO NOT massage the area "DO NOT use a donut shaped or ring shaped pillow- these actually interfere with the blood flow and cause complications PREVENTION: "Check for pressure ulcers everyday "Change position at least every two hours to relieve pressure "Use items that help relieve pressure- pillows, sheepskin, foam padding, and powders. "Keep skin clean and dry "Eat healthy well balanced meals "Exercise daily IF YOU SEE ANY OF THESE SYMPTOMS WHILE IN THE HOSPITAL - TELL YOUR NURSE IMMEDIATELY. IF YOU SEE ANY OF THESE SYMPTOMS WHILE AT HOME OR HAVE ANY QUESTIONS OR CONCERNS ABOUT PRESSURE ULCERS - CALL YOUR PRIMARY DOCTOR IMMEDIATELY. Addendum: 02/05/23 at 1511 by Dary Livingston LVN Amended: Links added.
[2023-02-05 15:40] VITALS: BP 101/53
[2023-02-05] MEDS ORDERED: potassium Cl 20 mEq SR tablet PO PRN ×2 (17:25)
[2023-02-05] MEDS ORDERED: potassium Cl 40MEQ/1/2NS 520ml 520 ML IV PRN (17:25)
[2023-02-05] MEDS ORDERED: magnesium 4gm in 100ml NS 100 ML IV PRN (17:25)
[2023-02-05 18:00] VITALS: BP 100/79
[2023-02-05] MEDS: primidone 50mg tablet PO SCH (19:57)
[2023-02-05] MEDS: albuterol 2.5 MG/3 ML nebule NEB PRN (20:33)
[2023-02-05 22:00] VITALS: BP 100/59
[2023-02-05] MEDS: insulin glargine (Lantus) pen - multi-dose SQ SCH (22:12)
[2023-02-06] VITALS (7 sets, daily range): BP systolic 101–130; BP diastolic 65–82
[2023-02-06] MEDS: morphine 2 MG/ML inj. syringe IV PRN ×4 (00:20→21:16)
[2023-02-06] MEDS: piperacillin/tazo 3.375gm/50ml 50 ML IV SCH ×4 (00:23→23:50)
--- NOTE | 2023-02-06 02:00 | NUR ---
Pt. is awake alert oriented and in good spirits. Peripheral IV intact antibiotics infusing. Pt. c/o bilateral lower leg pain medicated x 2 over night as needed. Pt. able to self suction with Yankauer mod amt thick beige secretions. Pt. has a Purewick with large amt of yellow slightly cloudy urine. Bilateral leg dressings intact. Pt. states would like to have Purewick for home use, also states would like to leave for home by February 08 to take care of personal matters.
[2023-02-06] MEDS: diltiazem 30mg tablet PO SCH (03:55)
--- NOTE | 2023-02-06 06:56 | NUR ---
Patient in room U 3021. I have received report from Lyn STAUFFER and had the opportunity to ask questions and assume patient care. Pt lying supine, no distress noted, Contact precautions observed. Addendum: 02/06/23 at 0656 by Clayton Sanchez LVN Amended: Links added.
[2023-02-06] MEDS: K and/or MAG REPLACEMENT MC SCH ×4 (08:00→19:46)
[2023-02-06] MEDS: LIRAGLUTIDE 0.6 MG/0.1 ML PEN.INJCTR SQ SCH (08:00)
[2023-02-06] MEDS: vancomycin/NS 1 GM ADD-VANTAGE 250 ML IV SCH ×2 (08:11→19:44)
[2023-02-06] MEDS: furosemide 40mg/4ml inj IV SCH ×2 (08:13→19:59)
[2023-02-06] MEDS: ipratropium/albuterol 3ml nebule NEB PRN (08:22)
[2023-02-06] MEDS: budesonide 0.5mg/2ml UD nebule IH SCH ×2 (08:22→20:17)
[2023-02-06] MEDS: ascorbic acid 500mg tablet PO SCH ×2 (08:38→20:00)
[2023-02-06] MEDS: duloxetine 30mg CAPSULE.DR PO SCH (08:38)
[2023-02-06] MEDS: diltiazem CD 180mg cap (once-daily) PO SCH (08:39)
[2023-02-06] MEDS: roflumilast 500mcg tablet PO SCH (08:39)
[2023-02-06] MEDS: apixaban 5mg tablet PO SCH ×2 (08:40→19:59)
[2023-02-06] MEDS: predniSONE 20 mg tablet PO SCH (08:41)
[2023-02-06] MEDS: aspirin 81mg, enteric-coated 1 TAB TABLET.DR PO SCH (08:41)
[2023-02-06] MEDS: levoTHYROXINE 100mcg tablet PO SCH (08:41)
[2023-02-06] MEDS: allopurinol 100mg tablet PO SCH (08:41)
[2023-02-06] MEDS: docusate sod 100mg capsule PO SCH ×2 (08:41→20:00)
[2023-02-06] MEDS: loratadine 10mg tablet PO SCH (08:42)
[2023-02-06] MEDS: ERTUGLIFLOZIN PIDOLATE 15 MG PO SCH (08:42)
[2023-02-06] MEDS: gabapentin 400mg capsule PO SCH ×3 (08:47→20:45)
[2023-02-06] MEDS: FERROUS SULFATE 142 MG TABLET.ER (45mg elemental) PO SCH (08:50)
[2023-02-06 08:51] LABS: BASOPHILS % (AUTO) 0.4 % (0-1); EOSINOPHILS # (AUTO) 0.1 X10'3 (0-0.9); EOSINOPHILS % (AUTO) 1.2 % (0-6); HEMATOCRIT 37.3 % (35.0-45.0); HEMOGLOBIN 11.4 g/dl (12.0-16.0); LYMPHOCYTES # (AUTO) 1.9 X10'3 (1.1-4.8); LYMPHOCYTES % (AUTO) 25.3 % (21-51); MEAN CORPUSCULAR HEMOGLOBIN 29.5 PG (27.0-31.0); MEAN CORPUSCULAR HGB CONC 30.7 g/dL (33.0-36.5); MEAN PLATELET VOLUME 6.3 FL (7.4-10.4); MONOCYTES # (AUTO) 0.7 X10'3 (0-0.9); NEUTROPHILS # (AUTO) 4.6 X10'3 (1.8-7.7); NEUTROPHILS % (AUTO) 63.1 % (42-75); PLATELET COUNT 285 X10'3 (140-440); RED BLOOD COUNT 3.88 X10'6 (4.20-5.60); RED CELL DISTRIBUTION WIDTH 19.7 % (11.5-14.5); WHITE BLOOD COUNT 7.3 X10'3 (4.5-11.0)
[2023-02-06 09:14] LABS: ALANINE AMINOTRANSFERASE 13 U/L (12-78); ALBUMIN 2.3 G/DL (3.4-5.0); ALBUMIN/GLOBULIN RATIO 0.6 (1.1-1.5); ALKALINE PHOSPHATASE 90 IU/L (46-116); ANION GAP 3 (8-16); ASPARTATE AMINO TRANSFERASE 14 U/L (10-37); BILIRUBIN,TOTAL 0.3 MG/DL (0.1-1.0); BLOOD UREA NITROGEN 10 MG/DL (7-18); BUN/CREATININE RATIO 13.7 (10.0-20.0); CALCIUM 8.9 MG/DL (8.5-10.1); CHLORIDE 104 MMOL/L (99-107); CREATININE 0.73 MG/DL (0.40-0.90); GLUCOSE 71 MG/DL (70-104); MAGNESIUM 2.3 MG/DL (1.5-2.4); SODIUM 143 MMOL/L (135-145); TOTAL CARBON DIOXIDE 36.3 MMOL/L (24-32); TOTAL PROTEIN 5.9 G/DL (6.4-8.2); eGFR 80 ML/MIN
[2023-02-06] MEDS ORDERED: metoprolol tartrate 50mg tablet PO ONE (10:35)
--- NOTE | 2023-02-06 11:00 | NUR ---
Late entry: Pt HR 130-150, asymptomatic, Dr. Macias ordered Metoprolol 50mg Give once. Stringed Instrument Assembler will follow up with results.
--- NOTE | 2023-02-06 11:00 | NUR ---
PT LIRAGLUTIDE NOT IN PT SPECIFIC, PT STATED SHE WILL BE CALLING HER DAUGHTER TO BRING MEDICATION
[2023-02-06] MEDS: HYDROcodone/acetaminophen 10/325mg tab PO PRN ×2 (12:44→19:59)
--- NOTE | 2023-02-06 13:00 | NUR ---
paged PAGER ID: [phone] MESSAGE: [phone] Milady Kapoor. pt HR 109-112 over last 30 min. Jessi PATHAK
--- NOTE | 2023-02-06 17:52 | NUR ---
I AGREE WITH JAMIA PASSENGER COACH DRIVER ASSESSMENT.
--- NOTE | 2023-02-06 18:34 | NUR ---
Problems reprioritized. Patient report given, questions answered & plan of care reviewed with Lyn RN.
[2023-02-06] MEDS ORDERED: VANCOMYCIN LEVEL IV ONE (19:30)
--- NOTE | 2023-02-06 19:40 | NUR ---
Dr. Cavazos: This is U reporting a Critical Vanco trough 23.4 for Carter Kapoor Room 3021. Will hold pm dose and notify Pharmacy.
[2023-02-06] MEDS: ondansetron/PF 4mg/2ml inj IV PRN (19:59)
[2023-02-06] MEDS: metoprolol tartrate 25mg tablet PO SCH (20:01)
[2023-02-06] MEDS: VANCOMYCIN 750MG IV in NS 250 ML IV SCH (20:30)
[2023-02-06] MEDS: primidone 50mg tablet PO SCH (20:45)
[2023-02-06] MEDS: insulin glargine (Lantus) pen - multi-dose SQ SCH (21:00)
--- NOTE | 2023-02-06 23:59 | NUR ---
Pt. is awake alert oriented in good spirits still c/o pain in lower legs medicated with oral med before IV med.Pt. states IV med is more effective. Pt. has a peripheral IV antibiotics infusing. Purewick with large amt yellow slightly cloudy urine. no bm but passing flatus. Bilateral legs wrapped in Kerlix peripheral pulses palpable. Notified MD of Vanco trough level will hold pm dose for now. Pharmacist JAN notified: new decreased Vanco dose to begin tomorrow. Plan Pt. making preparations for homebound on Wednesday, states uses wheelchair at home, would like home Purewick use.
[2023-02-07 02:00] VITALS: BP 113/76
[2023-02-07 06:00] VITALS: BP 125/83
--- NOTE | 2023-02-07 06:30 | NUR ---
Patient in room PCU 3021. I have received report from Lesli STAUFFER and had the opportunity to ask questions and assume patient care.
[2023-02-07] MEDS: VANCOMYCIN 750MG IV in NS 250 ML IV SCH ×2 (07:46→21:11)
[2023-02-07] MEDS: morphine 2 MG/ML inj. syringe IV PRN ×3 (07:47→21:24)
[2023-02-07] MEDS: furosemide 40mg/4ml inj IV SCH ×2 (07:56→21:17)
[2023-02-07] MEDS: K and/or MAG REPLACEMENT MC SCH ×4 (08:00→20:00)
[2023-02-07] MEDS: LIRAGLUTIDE 0.6 MG/0.1 ML PEN.INJCTR SQ SCH (08:00)
[2023-02-07 08:04] LABS: BASOPHILS % (AUTO) 0.4 % (0-1); EOSINOPHILS # (AUTO) 0.1 X10'3 (0-0.9); EOSINOPHILS % (AUTO) 1.3 % (0-6); HEMATOCRIT 40.2 % (35.0-45.0); HEMOGLOBIN 12.5 g/dl (12.0-16.0); LYMPHOCYTES # (AUTO) 2.1 X10'3 (1.1-4.8); LYMPHOCYTES % (AUTO) 30.1 % (21-51); MEAN CORPUSCULAR HEMOGLOBIN 29.6 PG (27.0-31.0); MEAN CORPUSCULAR VOLUME 95.6 FL (78-98); MEAN PLATELET VOLUME 6.1 FL (7.4-10.4); MONOCYTES # (AUTO) 0.6 X10'3 (0-0.9); NEUTROPHILS # (AUTO) 4.2 X10'3 (1.8-7.7); NEUTROPHILS % (AUTO) 59.2 % (42-75); PLATELET COUNT 338 X10'3 (140-440); RED BLOOD COUNT 4.21 X10'6 (4.20-5.60); RED CELL DISTRIBUTION WIDTH 19.6 % (11.5-14.5); WHITE BLOOD COUNT 7.1 X10'3 (4.5-11.0)
[2023-02-07] MEDS: gabapentin 400mg capsule PO SCH ×3 (08:06→21:13)
[2023-02-07] MEDS: FERROUS SULFATE 142 MG TABLET.ER (45mg elemental) PO SCH ×2 (08:07→21:13)
[2023-02-07] MEDS: levoTHYROXINE 100mcg tablet PO SCH (08:07)
[2023-02-07] MEDS: roflumilast 500mcg tablet PO SCH (08:07)
[2023-02-07] MEDS: diltiazem CD 180mg cap (once-daily) PO SCH (08:07)
[2023-02-07] MEDS: duloxetine 30mg CAPSULE.DR PO SCH (08:07)
[2023-02-07] MEDS: loratadine 10mg tablet PO SCH (08:08)
[2023-02-07] MEDS: docusate sod 100mg capsule PO SCH ×2 (08:08→20:00)
[2023-02-07] MEDS: apixaban 5mg tablet PO SCH ×2 (08:08→21:14)
[2023-02-07] MEDS: potassium Cl 20 mEq SR tablet PO SCH (08:08)
[2023-02-07] MEDS: predniSONE 20 mg tablet PO SCH (08:08)
[2023-02-07] MEDS: ascorbic acid 500mg tablet PO SCH ×2 (08:09→21:14)
[2023-02-07] MEDS: ERTUGLIFLOZIN PIDOLATE 15 MG PO SCH (08:09)
[2023-02-07] MEDS: aspirin 81mg, enteric-coated 1 TAB TABLET.DR PO SCH (08:09)
[2023-02-07] MEDS: allopurinol 100mg tablet PO SCH (08:09)
[2023-02-07] MEDS: metoprolol tartrate 25mg tablet PO SCH ×2 (08:09→21:16)
[2023-02-07 08:37] LABS: ALANINE AMINOTRANSFERASE 16 U/L (12-78); ALBUMIN 2.5 G/DL (3.4-5.0); ALBUMIN/GLOBULIN RATIO 0.7 (1.1-1.5); ALKALINE PHOSPHATASE 97 IU/L (46-116); ANION GAP 3 (8-16); ASPARTATE AMINO TRANSFERASE 14 U/L (10-37); BILIRUBIN,TOTAL 0.5 MG/DL (0.1-1.0); BLOOD UREA NITROGEN 16 MG/DL (7-18); BUN/CREATININE RATIO 19.8 (10.0-20.0); CALCIUM 9.2 MG/DL (8.5-10.1); CHLORIDE 102 MMOL/L (99-107); CREATININE 0.81 MG/DL (0.40-0.90); GLUCOSE 103 MG/DL (70-104); POTASSIUM 3.4 MMOL/L (3.5-5.1); SODIUM 141 MMOL/L (135-145); TOTAL CARBON DIOXIDE 35.6 MMOL/L (24-32); TOTAL PROTEIN 6.3 G/DL (6.4-8.2); eGFR 71 ML/MIN
[2023-02-07] MEDS: budesonide 0.5mg/2ml UD nebule IH SCH ×2 (08:41→19:36)
[2023-02-07] MEDS: albuterol 2.5 MG/3 ML nebule NEB PRN ×2 (08:41→19:36)
[2023-02-07 10:00] VITALS: BP 105/65
[2023-02-07] MEDS: piperacillin/tazo 3.375gm/50ml 50 ML IV SCH ×3 (10:44→23:29)
--- NOTE | 2023-02-07 11:24 | NUR ---
Initial: Pt admit DX afib w/ RVR, CAD, heart failure w/ preserved EF, COPD, HTN, BLE cellulitis, chronic respiratory failure, hypokalemia, and DM per EMR. Noted pt w/ improving unstageable PI to coccyx halved in size from 02/03 to 02/05 per WOC note. A1C 5.9% 01/10/23 no on carb controlled diet from initial regular/fluid restricted; RD paged DO regarding change to heart healthy diet if agreeable given this. Pt overall ~74% avg meals up to ~94% past 4 meals partially meeting estimated needs though would meet needs if changed to heart healthy diet. LBM this AM per RN via TC today receiving routine colace. Will continue to follow. Rec: 1. change to heart healthy diet; carb controlled not warranted w/ last A1C 5.9% 01/10/23. Will meet needs w/ current PO trends if changed to heart healthy 2. routine bowel care; utilize PRN bowel regimen given prior 5 days constipation receiving PO iron 3. daily wt Addendum: 02/07/23 at [address] Amended: Links added.
[2023-02-07] MEDS: HYDROcodone/acetaminophen 10/325mg tab PO PRN (12:19)
--- NOTE | 2023-02-07 12:30 | NUR ---
AGREE WITH MYSQL DEVELOPER AM ASSESSMENT.
[2023-02-07 14:00] VITALS: BP 106/69
[2023-02-07 18:00] VITALS: BP 118/80
--- NOTE | 2023-02-07 18:27 | NUR ---
Problems reprioritized. Patient report given, questions answered & plan of care reviewed with Cain STAUFFER.
[2023-02-07] MEDS: primidone 50mg tablet PO SCH (21:16)
[2023-02-07] MEDS: insulin glargine (Lantus) pen - multi-dose SQ SCH (21:32)
[2023-02-07 23:00] VITALS: BP 120/75
[2023-02-08] MEDS: HYDROcodone/acetaminophen 10/325mg tab PO PRN ×2 (00:13→06:04)
[2023-02-08] MEDS: morphine 2 MG/ML inj. syringe IV PRN (02:18)
--- NOTE | 2023-02-08 06:35 | NUR ---
Patient in room PCU 3021. I have received report from Cain STAUFFER and had the opportunity to ask questions and assume patient care.
--- NOTE | 2023-02-08 06:38 | NUR ---
Problems reprioritized. Patient report given, questions answered & plan of care reviewed with GREG MARSH.
[2023-02-08 07:00] VITALS: BP 110/73
[2023-02-08] MEDS: furosemide 40mg/4ml inj IV SCH (07:22)
[2023-02-08] MEDS: VANCOMYCIN 750MG IV in NS 250 ML IV SCH (07:24)
[2023-02-08] MEDS: LIRAGLUTIDE 0.6 MG/0.1 ML PEN.INJCTR SQ SCH (08:00)
[2023-02-08] MEDS: gabapentin 400mg capsule PO SCH (08:00)
[2023-02-08] MEDS: K and/or MAG REPLACEMENT MC SCH ×2 (08:00)
[2023-02-08 08:05] LABS: BASOPHILS % (AUTO) 0.4 % (0-1); EOSINOPHILS % (AUTO) 0.5 % (0-6); HEMATOCRIT 38.8 % (35.0-45.0); HEMOGLOBIN 12.2 g/dl (12.0-16.0); LYMPHOCYTES # (AUTO) 1.7 X10'3 (1.1-4.8); LYMPHOCYTES % (AUTO) 18.3 % (21-51); MEAN CORPUSCULAR HEMOGLOBIN 30.1 PG (27.0-31.0); MEAN CORPUSCULAR HGB CONC 31.6 g/dL (33.0-36.5); MEAN CORPUSCULAR VOLUME 95.4 FL (78-98); MEAN PLATELET VOLUME 6.4 FL (7.4-10.4); MONOCYTES # (AUTO) 0.8 X10'3 (0-0.9); MONOCYTES % (AUTO) 9.2 % (2-12); NEUTROPHILS # (AUTO) 6.6 X10'3 (1.8-7.7); NEUTROPHILS % (AUTO) 71.6 % (42-75); PLATELET COUNT 323 X10'3 (140-440); RED BLOOD COUNT 4.06 X10'6 (4.20-5.60); RED CELL DISTRIBUTION WIDTH 19.7 % (11.5-14.5); WHITE BLOOD COUNT 9.2 X10'3 (4.5-11.0)
[2023-02-08 08:29] LABS: ALANINE AMINOTRANSFERASE 19 U/L (12-78); ALBUMIN 2.6 G/DL (3.4-5.0); ALBUMIN/GLOBULIN RATIO 0.7 (1.1-1.5); ALKALINE PHOSPHATASE 88 IU/L (46-116); ANION GAP 4 (8-16); ASPARTATE AMINO TRANSFERASE 15 U/L (10-37); BILIRUBIN,TOTAL 0.4 MG/DL (0.1-1.0); BLOOD UREA NITROGEN 17 MG/DL (7-18); BUN/CREATININE RATIO 17.2 (10.0-20.0); CALCIUM 8.5 MG/DL (8.5-10.1); CHLORIDE 101 MMOL/L (99-107); CREATININE 0.99 MG/DL (0.40-0.90); GLUCOSE 173 MG/DL (70-104); POTASSIUM 3.2 MMOL/L (3.5-5.1); SODIUM 142 MMOL/L (135-145); TOTAL CARBON DIOXIDE 36.9 MMOL/L (24-32); TOTAL PROTEIN 6.1 G/DL (6.4-8.2); eGFR 56 ML/MIN
[2023-02-08] MEDS: budesonide 0.5mg/2ml UD nebule IH SCH (08:57)
[2023-02-08] MEDS: albuterol 2.5 MG/3 ML nebule NEB PRN (08:57)
[2023-02-08] MEDS: roflumilast 500mcg tablet PO SCH (09:22)
[2023-02-08] MEDS: ERTUGLIFLOZIN PIDOLATE 15 MG PO SCH (09:22)
[2023-02-08] MEDS: ascorbic acid 500mg tablet PO SCH (09:22)
[2023-02-08] MEDS: diltiazem CD 180mg cap (once-daily) PO SCH (09:23)
[2023-02-08] MEDS: levoTHYROXINE 100mcg tablet PO SCH (09:23)
[2023-02-08] MEDS: potassium Cl 20 mEq SR tablet PO SCH (09:23)
[2023-02-08] MEDS: apixaban 5mg tablet PO SCH (09:24)
[2023-02-08] MEDS: docusate sod 100mg capsule PO SCH (09:24)
[2023-02-08] MEDS: metoprolol tartrate 25mg tablet PO SCH (09:24)
[2023-02-08] MEDS: aspirin 81mg, enteric-coated 1 TAB TABLET.DR PO SCH (09:24)
[2023-02-08] MEDS: predniSONE 20 mg tablet PO SCH (09:24)
[2023-02-08] MEDS: loratadine 10mg tablet PO SCH (09:25)
[2023-02-08] MEDS: FERROUS SULFATE 142 MG TABLET.ER (45mg elemental) PO SCH (09:25)
[2023-02-08] MEDS: duloxetine 30mg CAPSULE.DR PO SCH (09:25)
[2023-02-08] MEDS: allopurinol 100mg tablet PO SCH (09:26)
[2023-02-08] MEDS ORDERED: AMOX-580 PO (09:50)
[2023-02-08] MEDS ORDERED: DILT180C66 PO (09:50)
[2023-02-08] MEDS ORDERED: FURO40TA4 PO (09:50)
--- NOTE | 2023-02-08 11:11 | NUR ---
AGREE WITH RECORDAK OPERATOR AM ASSESSMENT.
[2023-02-08 11:20] VITALS: BP 109/76
--- NOTE | 2023-02-08 11:20 | NUR ---
Patient discharged home. All belongings and discharge instructions sent home with patient. IV removed and bed side monitor removed. Dressing changes to legs done before discharge. Escorted out via wheelchair accompanied by nurse and left via cab.
[2023-02-08] MEDS ORDERED: VANCOMYCIN LEVEL IV ONE (19:30)
== END 2023-02-08 11:17 | disposition home health service (06) | DRG 201 ==
LOC: ER 13:15 → ED HOLD 16:40 → PCU 3S 02-03 15:04
PROVIDERS: ADMIT Internal Medicine; ATTEND Internal Medicine
DX: I48.91 Unspecified atrial fibrillation (principal); E10.51 Type 1 diabetes mellitus with diabetic peripheral angiopathy without gangrene; J96.11 Chronic respiratory failure with hypoxia; I50.9 Heart failure, unspecified; I11.0 Hypertensive heart disease with heart failure; I25.2 Old myocardial infarction; J44.9 Chronic obstructive pulmonary disease, unspecified; E78.00 Pure hypercholesterolemia, unspecified; G47.30 Sleep apnea, unspecified; I25.10 Atherosclerotic heart disease of native coronary artery without angina pectoris; L03.116 Cellulitis of left lower limb; L03.115 Cellulitis of right lower limb; E87.6 Hypokalemia; M1A.9XX0 Chronic gout, unspecified, without tophus (tophi); Z79.01 Long term (current) use of anticoagulants; Z79.4 Long term (current) use of insulin; Z79.51 Long term (current) use of inhaled steroids; Z79.899 Other long term (current) drug therapy; Z82.0 Family history of epilepsy and other diseases of the nervous system; Z82.3 Family history of stroke; Z82.49 Family history of ischemic heart disease and other diseases of the circulatory system; Z82.5 Family history of asthma and other chronic lower respiratory diseases; Z83.3 Family history of diabetes mellitus; Z86.73 Personal history of transient ischemic attack (TIA), and cerebral infarction without residual deficits; Z87.01 Personal history of pneumonia (recurrent); Z87.891 Personal history of nicotine dependence; Z90.710 Acquired absence of both cervix and uterus; Z95.1 Presence of aortocoronary bypass graft; Z95.5 Presence of coronary angioplasty implant and graft; Z99.81 Dependence on supplemental oxygen
CPT/HCPCS: 36415; 71045; 80053; 80061; 80202; 81001; 82607; 82728; 82948; 83540; 83550; 83605; 83735; 83880; 84145; 84443; 85008; 85025; 87040; 87088; 93005; 93306; 93308; 94640; 94760; 97110; 97116; 97162; 97530; 99285; A4353; A6154; A6213; A6223; A6250; A6258; A6260; A6446; A6449; G0378; J1815; J1940; J2270; J2405; J2543; J3370; J3490; J7050; J7512

== ENCOUNTER 2023-03-01 14:17 | Inpatient (IN) | payer MEDICAID ==
[~2023-03-01] VITALS: Ht 165.1 cm; Wt 72.7 kg
[~2023-03-01 14:17] MED LIST changes: +AMOX-580 PO; -APIX2.5T PO; +APIX5TAB3 PO; +ASCO-100 PO; -CLON0.5T4 PO; +DILT180C66 PO; -FLUO-167 PO; +FURO40TA4 PO; +GABA800T11 PO; -GUAI600T45 PO; -LANTUS SQ; +NITR0.4T48 SL; +POTA-207 PO; -TOPI-253 PO
[2023-03-01] MEDS ORDERED: methylPREDNISolone sod succ 125mg/2ml vial IV ONE (14:50)
[2023-03-01] MEDS ORDERED: CefTRIAXone/D5W-Rocephin 1gm 50 ML IV ONE (14:50)
[2023-03-01] MEDS ORDERED: albuterol 2.5 MG/3 ML nebule CONTNEB PRN (14:50)
[2023-03-01] MEDS ORDERED: ipratropium 0.5 MG/2.5ML nebule IH ONE (14:50)
[2023-03-01] MEDS ORDERED: azithromycin/NS 500mg/250ml 250 ML IV ONE (14:50)
[2023-03-01 15:14] LABS: BASOPHILS # (AUTO) 0.1 X10'3 (0-0.2); BASOPHILS % (AUTO) 0.2 % (0-1); EOSINOPHILS % (AUTO) 0.1 % (0-6); HEMATOCRIT 40.8 % (35.0-45.0); LYMPHOCYTES # (AUTO) 1.2 X10'3 (1.1-4.8); LYMPHOCYTES % (AUTO) 4.4 % (21-51); MEAN CORPUSCULAR HEMOGLOBIN 29.4 PG (27.0-31.0); MEAN CORPUSCULAR HGB CONC 31.7 g/dL (33.0-36.5); MEAN CORPUSCULAR VOLUME 92.5 FL (78-98); MEAN PLATELET VOLUME 6.7 FL (7.4-10.4); MONOCYTES # (AUTO) 0.5 X10'3 (0-0.9); MONOCYTES % (AUTO) 1.9 % (2-12); NEUTROPHILS # (AUTO) 25.1 X10'3 (1.8-7.7); NEUTROPHILS % (AUTO) 93.4 % (42-75); PLATELET COUNT 351 X10'3 (140-440); RED BLOOD COUNT 4.41 X10'6 (4.20-5.60); RED CELL DISTRIBUTION WIDTH 17.8 % (11.5-14.5)
[2023-03-01 15:19] LABS: WHITE BLOOD COUNT 26.8 X10'3 (4.5-11.0)
[2023-03-01 15:29] LABS: D-DIMER 1.16 MG/L FEU (0-0.50)
[2023-03-01 15:35] LABS: TOTAL CELLS COUNTED 100
[2023-03-01 15:36] LABS: ANISOCYTOSIS 1+; PLATELET ESTIMATE NORMAL
[2023-03-01 15:44] LABS: ALANINE AMINOTRANSFERASE 10 U/L (12-78); ALBUMIN 1.8 G/DL (3.4-5.0); ALBUMIN/GLOBULIN RATIO 0.5 (1.1-1.5); ALKALINE PHOSPHATASE 141 IU/L (46-116); ANION GAP 11 (8-16); ASPARTATE AMINO TRANSFERASE 28 U/L (10-37); BILIRUBIN,TOTAL 0.3 MG/DL (0.1-1.0); BLOOD UREA NITROGEN 23 MG/DL (7-18); BUN/CREATININE RATIO 18.7 (10.0-20.0); CALCIUM 8.7 MG/DL (8.5-10.1); CHLORIDE 100 MMOL/L (99-107); CREATININE 1.23 MG/DL (0.40-0.90); GLUCOSE 184 MG/DL (70-104); SODIUM 140 MMOL/L (135-145); TOTAL CARBON DIOXIDE 28.9 MMOL/L (24-32); TOTAL PROTEIN 5.7 G/DL (6.4-8.2); eGFR 44 ML/MIN
[2023-03-01 15:52] LABS: POTASSIUM 2.6 MMOL/L (3.5-5.1)
--- NOTE | 2023-03-01 16:25 | NUR ---
RN NOTIFIED DR PEREZ THAT PT HR IN 160'S PER DR PEREZ HE WILL ORD DILTIZEM IVP.
[2023-03-01] MEDS ORDERED: diltiazem 5mg/ml 5ml inj. IV ONE (16:55)
--- NOTE | 2023-03-01 16:55 | NUR ---
PER DR PEREZ ADMIN 10 MG OF CARDIZEM IVP FOR HR 176
[2023-03-01] MEDS ORDERED: potassium Cl 20 mEq SR tablet PO STA (16:56)
--- NOTE | 2023-03-01 17:19 | NUR ---
PT C/O BURNING WITH CARDIZEM IVP. RN ATTEMPTED IV AND COULD NOT OBTAIN ONE. TRISTA STAUFFER IS AT BEDSIDE NOW ATTEMPTING TO GET IV.
[2023-03-01] MEDS ORDERED: metoprolol tartrate 1mg/ml inj IV ONE (17:35)
[2023-03-01] MEDS ORDERED: glucagon, human recombinant 1mg kit SUBCUT PRN (17:45)
[2023-03-01] MEDS ORDERED: MESSAGE TO PHARMACY PO ONE (17:45)
[2023-03-01] MEDS ORDERED: acetaminophen 325mg tablet PO PRN (17:45)
[2023-03-01] MEDS ORDERED: dextrose 50%-water 50ml dispensing syringe IV PRN ×2 (17:45)
[2023-03-01] MEDS ORDERED: magnesium 4gm in 100ml NS 100 ML IV PRN (17:45)
[2023-03-01] MEDS ORDERED: potassium Cl 40MEQ/1/2NS 520ml 520 ML IV PRN (17:45)
[2023-03-01] MEDS ORDERED: DEXTROSE 15 GM of carb/4 tabs (each vial/BOTTLE has 4 tablets) PO PRN ×2 (17:45)
[2023-03-01] MEDS ORDERED: mag hydrox/Alum hydrox/simeth 30ml oral suspension PO PRN (17:45)
[2023-03-01] MEDS ORDERED: magnesium 2GM in 50ml NS 50 ML IV PRN (17:45)
[2023-03-01] MEDS ORDERED: bisacodyl 10mg suppository rectal RC PRN (17:45)
[2023-03-01] MEDS ORDERED: potassium Cl 20 mEq SR tablet PO PRN (17:45)
[2023-03-01] MEDS ORDERED: CLOP75TA34 PO (17:52)
[2023-03-01] MEDS ORDERED: CYCL-1 PO (17:53)
[2023-03-01] MEDS ORDERED: FURO40TA4 PO (17:54)
[2023-03-01] MEDS ORDERED: CLON0.5T4 PO (17:55)
[2023-03-01] MEDS ORDERED: DILT-36 PO (17:55)
[2023-03-01] MEDS ORDERED: amiodarone inj. 450 MG in dextrose 5%-water 241 ML IV SCH (18:10)
[2023-03-01] MEDS ORDERED: amiodarone 50MG/ML inj IV ONE (18:10)
--- NOTE | 2023-03-01 18:21 | NUR ---
BUBBA RN IS TRYING FOR IV. 2 RNS HAVE MADE MULTIPLE ATTEMPTS
[2023-03-01] MEDS ORDERED: amiodarone 150mg/dext, iso-os 100 ML IV ONE (18:25)
[2023-03-01] MEDS ORDERED: nitroGLYCERIN 0.4mg SUBLingual tab SL PRN (18:35)
[2023-03-01] MEDS ORDERED: cyclobenzaprine 10mg tablet PO PRN (18:35)
[2023-03-01] MEDS ORDERED: HYDROcodone/acetaminophen 10/325mg tab PO PRN (18:35)
--- NOTE | 2023-03-01 18:44 | NUR ---
IV WAS OBTAINED BY BUBBA STAUFFER. RN OR ONCOMING RN WILL START MEDS.
[2023-03-01] MEDS: amiodarone/D5 360MG/200ML BAG 200 ML IV SCH ×2 (18:52→20:24)
[2023-03-01] MEDS: docusate sod 100mg capsule PO SCH (19:35)
--- NOTE | 2023-03-01 19:44 | NUR ---
cinetechnician to pt bedside at this time for lab draw
[2023-03-01] MEDS: K and/or MAG REPLACEMENT MC SCH (20:00)
[2023-03-01] MEDS ORDERED: enoxaparin 40mg/0.4ml syringe SQ SCH (20:00)
--- NOTE | 2023-03-01 20:08 | NUR ---
Attempting to administer Amiodorone drip; Pt taking cardiac leads off, stating she is going to go home; When asked why she wants to leave, pt states she "has a doctor's appointment in the morning." Pt educated on need for admission to hospital and that her doctor will be notified and updated on plan of care; Pt verbalizes understanding, but states she still does not want to stay in hospital; Pt A&O x 4; GCS 15; Dr. Cavazos paged
--- NOTE | 2023-03-01 20:10 | NUR ---
Dr. Cavazos notified of pt desire to leave AMA; Awaiting further orders
--- NOTE | 2023-03-01 20:19 | NUR ---
Dr. Cavazos to pt bedside at this time discussing treatment plan; Pt now agreeing to hospital admission
--- NOTE | 2023-03-01 20:24 | NUR ---
Pt now agreeing to administration of amiodorone drip; Drip started to left EJ IV at ordered rate of 1 mg/min; HR 142; BP 106/82; O2 sat 83 3L NC
[2023-03-01] MEDS: ipratropium/albuterol 3ml nebule NEB PRN (20:41)
--- NOTE | 2023-03-01 22:00 | NUR ---
Attempts made to establish additional IV access by multiple ED nursing staff without success; Pt refusing further attempts at this time; Pt educated on need for additional access due to current infusing IV medication; Pt verbalizes understanding; Pt A&O x 4 and understands education provided; Still refusing further IV attempts
[2023-03-02] VITALS (13 sets, daily range): BP systolic 91–128; BP diastolic 55–87
[2023-03-02] MEDS: apixaban 5mg tablet PO SCH ×3 (00:41→19:02)
--- NOTE | 2023-03-02 00:46 | NUR ---
Further attempts made to encourage pt to accept additional IV access at this time; Pt states "okay," but will not allow tourniquet to be applied to arm; Keeps pulling arm away and tells RN to "stop it."
[2023-03-02] MEDS: amiodarone/D5 360MG/200ML BAG 200 ML IV SCH ×2 (01:48→08:18)
--- NOTE | 2023-03-02 01:53 | NUR ---
Report given to EH Henning
[2023-03-02] MEDS: insulin glargine (Lantus) pen - multi-dose SQ SCH ×2 (03:22→21:42)
[2023-03-02] MEDS: methylPREDNISolone sod succ/PF 40mg inj. IV SCH ×4 (03:37→21:25)
--- NOTE | 2023-03-02 03:54 | NUR ---
assumed care at 0200 from EH Villeda. 1450 AND 2100 medications given past due around 0330 after central line placed & confirmed by . pt on hospital bed.
[2023-03-02 04:19] LABS: GLUCOSE 288 MG/DL (70-104); SODIUM 139 MMOL/L (135-145)
[2023-03-02 04:20] LABS: ALANINE AMINOTRANSFERASE 7 U/L (12-78); ALBUMIN 1.6 G/DL (3.4-5.0); ALBUMIN/GLOBULIN RATIO 0.4 (1.1-1.5); ALKALINE PHOSPHATASE 133 IU/L (46-116); ANION GAP 13 (8-16); ASPARTATE AMINO TRANSFERASE 23 U/L (10-37); BILIRUBIN,TOTAL 0.3 MG/DL (0.1-1.0); BLOOD UREA NITROGEN 28 MG/DL (7-18); BUN/CREATININE RATIO 22.4 (10.0-20.0); CALCIUM 8.3 MG/DL (8.5-10.1); CHLORIDE 99 MMOL/L (99-107); CREATININE 1.25 MG/DL (0.40-0.90); MAGNESIUM 1.9 MG/DL (1.5-2.4); POTASSIUM 3.1 MMOL/L (3.5-5.1); TOTAL CARBON DIOXIDE 27.3 MMOL/L (24-32); TOTAL PROTEIN 5.4 G/DL (6.4-8.2); eGFR 43 ML/MIN
--- NOTE | 2023-03-02 06:22 | NUR ---
MESSAGE TO MD; pt in rm 3020 Emelia Henning has positive gram ,neg silvia in her blood culture. Liyah pcu [id number].Order to continue pt's current antibiotics.
[2023-03-02 06:31] LABS: BASOPHILS % (AUTO) 0.2 % (0-1); EOSINOPHILS % (AUTO) 0 % (0-6); HEMATOCRIT 38.5 % (35.0-45.0); HEMOGLOBIN 12.4 g/dl (12.0-16.0); LYMPHOCYTES # (AUTO) 0.9 X10'3 (1.1-4.8); LYMPHOCYTES % (AUTO) 4.8 % (21-51); MEAN CORPUSCULAR HEMOGLOBIN 29.7 PG (27.0-31.0); MEAN CORPUSCULAR HGB CONC 32.3 g/dL (33.0-36.5); MEAN CORPUSCULAR VOLUME 91.7 FL (78-98); MEAN PLATELET VOLUME 7.2 FL (7.4-10.4); MONOCYTES # (AUTO) 0.9 X10'3 (0-0.9); NEUTROPHILS # (AUTO) 16.9 X10'3 (1.8-7.7); PLATELET COUNT 395 X10'3 (140-440); RED CELL DISTRIBUTION WIDTH 18.1 % (11.5-14.5); WHITE BLOOD COUNT 18.7 X10'3 (4.5-11.0)
--- NOTE | 2023-03-02 06:43 | NUR ---
report was given to Jaclyn STAUFFER
--- NOTE | 2023-03-02 07:41 | NUR ---
Page Sent promotional table spacer PAGER ID: [phone] MESSAGE: [phone] Emelia. Patient HR continues to trend 130s-140s on amio gtt @0.5 mg/min . She has cardizem po 360mg sr ordered to start this morning. please clarify. Sabrina @[phone] (167 character message out of a maximum of 240)
[2023-03-02] MEDS ORDERED: aspirin 81mg, enteric-coated 1 TAB TABLET.DR PO SCH (08:00)
[2023-03-02] MEDS: K and/or MAG REPLACEMENT MC SCH ×2 (08:00→19:08)
[2023-03-02] MEDS ORDERED: diltiazem CD 180mg cap (once-daily) PO SCH (08:00)
[2023-03-02] MEDS: CefTRIAXone/D5W-Rocephin 1gm 50 ML IV SCH (08:18)
[2023-03-02] MEDS: docusate sod 100mg capsule PO SCH ×2 (08:25→19:01)
[2023-03-02] MEDS: duloxetine 30mg CAPSULE.DR PO SCH (08:25)
[2023-03-02] MEDS: clopidogrel 75mg tablet PO SCH (08:26)
[2023-03-02] MEDS: azithromycin 250mg tablet PO SCH (08:27)
[2023-03-02] MEDS: potassium Cl 20 mEq SR tablet PO PRN ×2 (08:27→18:59)
[2023-03-02] MEDS: roflumilast 500mcg tablet PO SCH (09:11)
[2023-03-02] MEDS: insulin Lispro (HumaLOG) vial - multi-dose SQ SCH ×3 (09:13→19:26)
[2023-03-02] MEDS: ipratropium/albuterol 3ml nebule NEB PRN ×2 (09:29→19:50)
[2023-03-02] MEDS ORDERED: normal saline 1000ml 1,000 ML IV SCH (10:30)
[2023-03-02] MEDS ORDERED: metoprolol tartrate 1mg/ml inj IV STA (10:31)
[2023-03-02] MEDS ORDERED: HYDROmorphone 1 mg/ml syringe IV ONE (11:00)
[2023-03-02] MEDS: diatr meglu/diatrizoate 30ml oral sol.-(3 dose) bottle PO SCH ×3 (11:47→17:33)
[2023-03-02] MEDS: normal saline 1000ml 1,000 ML IV SCH (14:00)
[2023-03-02] MEDS ORDERED: diltiazem-NS 100mg/100ml 125 ML IV SCH (17:20)
--- NOTE | 2023-03-02 18:24 | NUR ---
Problems reprioritized. Patient report given, questions answered & plan of care reviewed with Sherrill Rn. Patient resting comfortably no acute distress.
[2023-03-02] MEDS: diltiazem-NS 100mg/100ml 100 ML IV SCH (18:50)
[2023-03-02] MEDS: HYDROmorphone 1 mg/ml syringe IV PRN (18:51)
[2023-03-02] MEDS: gabapentin 300mg capsule PO SCH (19:01)
[2023-03-03] VITALS (16 sets, daily range): BP systolic 97–130; BP diastolic 71–84
[2023-03-03] MEDS: normal saline 1000ml 1,000 ML IV SCH ×3 (00:30→22:45)
[2023-03-03] MEDS: HYDROmorphone 1 mg/ml syringe IV PRN ×4 (04:38→21:21)
[2023-03-03] MEDS: potassium Cl 20 mEq SR tablet PO PRN (05:11)
--- NOTE | 2023-03-03 06:47 | NUR ---
Problems reprioritized. Patient report given, questions answered & plan of care reviewed with Keisha STAUFFER.
--- NOTE | 2023-03-03 06:53 | NUR ---
Patient in room PCU 3020. I have received report from Sherrill STAUFFER and had the opportunity to ask questions and assume patient care.
[2023-03-03 07:07] LABS: BASOPHILS % (AUTO) 0 % (0-1); EOSINOPHILS % (AUTO) 0 % (0-6); HEMATOCRIT 34.6 % (35.0-45.0); LYMPHOCYTES # (AUTO) 0.8 X10'3 (1.1-4.8); LYMPHOCYTES % (AUTO) 4.9 % (21-51); MEAN CORPUSCULAR HEMOGLOBIN 29.5 PG (27.0-31.0); MEAN CORPUSCULAR HGB CONC 31.8 g/dL (33.0-36.5); MEAN CORPUSCULAR VOLUME 92.6 FL (78-98); MEAN PLATELET VOLUME 7.1 FL (7.4-10.4); MONOCYTES # (AUTO) 0.7 X10'3 (0-0.9); MONOCYTES % (AUTO) 4.2 % (2-12); NEUTROPHILS # (AUTO) 15.7 X10'3 (1.8-7.7); NEUTROPHILS % (AUTO) 90.9 % (42-75); PLATELET COUNT 347 X10'3 (140-440); RED BLOOD COUNT 3.74 X10'6 (4.20-5.60); RED CELL DISTRIBUTION WIDTH 18.5 % (11.5-14.5); WHITE BLOOD COUNT 17.3 X10'3 (4.5-11.0)
--- NOTE | 2023-03-03 07:37 | NUR ---
Patient in room PCU 3020. I have received report from EH HENNING, and had the opportunity to ask questions and assume patient care.
[2023-03-03 07:42] LABS: ALANINE AMINOTRANSFERASE 10 U/L (12-78); ALBUMIN 1.5 G/DL (3.4-5.0); ALBUMIN/GLOBULIN RATIO 0.4 (1.1-1.5); ALKALINE PHOSPHATASE 116 IU/L (46-116); ANION GAP 10 (8-16); ASPARTATE AMINO TRANSFERASE 23 U/L (10-37); BILIRUBIN,TOTAL 0.3 MG/DL (0.1-1.0); BLOOD UREA NITROGEN 35 MG/DL (7-18); CALCIUM 8.8 MG/DL (8.5-10.1); CHLORIDE 99 MMOL/L (99-107); CREATININE 1.13 MG/DL (0.40-0.90); GLUCOSE 170 MG/DL (70-104); MAGNESIUM 2.3 MG/DL (1.5-2.4); POTASSIUM 3.7 MMOL/L (3.5-5.1); SODIUM 139 MMOL/L (135-145); TOTAL CARBON DIOXIDE 29.8 MMOL/L (24-32); TOTAL PROTEIN 5.3 G/DL (6.4-8.2); eGFR 48 ML/MIN
[2023-03-03] MEDS: K and/or MAG REPLACEMENT MC SCH ×2 (08:00→20:00)
[2023-03-03] MEDS: methylPREDNISolone sod succ/PF 40mg inj. IV SCH ×3 (08:31→21:16)
[2023-03-03] MEDS: CefTRIAXone/D5W-Rocephin 1gm 50 ML IV SCH (08:32)
[2023-03-03] MEDS: duloxetine 30mg CAPSULE.DR PO SCH (08:36)
[2023-03-03] MEDS: gabapentin 300mg capsule PO SCH ×2 (08:37→21:15)
[2023-03-03] MEDS: clopidogrel 75mg tablet PO SCH (08:37)
[2023-03-03] MEDS: roflumilast 500mcg tablet PO SCH (08:37)
[2023-03-03] MEDS: apixaban 5mg tablet PO SCH ×2 (08:37→21:15)
[2023-03-03] MEDS: azithromycin 250mg tablet PO SCH (08:38)
[2023-03-03] MEDS: docusate sod 100mg capsule PO SCH ×2 (08:38→21:16)
[2023-03-03] MEDS: insulin Lispro (HumaLOG) vial - multi-dose SQ SCH (09:00)
[2023-03-03] MEDS: HYDROcodone/acetaminophen 10/325mg tab PO PRN (10:56)
--- NOTE | 2023-03-03 14:00 | NUR ---
Initial: Pt admit for sepsis possibly secondary to PNA, A.fib with RVR, and COPD exacerbation. Noted pt with a low Yordy of 11 with multiple wounds per EMR. Wound care has been consulted, pending assessment at this time. Pt currently on a heart healthy CHO controlled diet and eating poorly, documented with 0% PO intake of first three meals though with 50 g CHO intake at breakfast this morning. Attempted to d/w RN for clarification of meal intake however unable to reach at this time. Recommend discontinuing CHO controlled diet restriction as T2DM is well controlled with A1c hx 5.7% 08/18/22, 5.6% 09/26/22, and 5.9% 01/10/23. No documented BM since admit and conflicting documentation in EMR stating reported LBM 02/28 with normally having a BM QD though also documented that LBM was 4-5 days ago. Pt receiving routine bowel care and has additional PRN bowel care available. Will continue to follow closely and make recommendations as appropriate pending wound care assessment and further trends in PO intake. Recommendations: 1) Continue heart healthy diet; discontinue CHO controlled restriction given T2DM well controlled with A1c 5.9% 2) Monitor need for ONS/additional protein; WOC assessment pending 3) Routine bowel care; utilize PRN bowel care if pt truly has not had a BM in 4-5 days 4) Scaled weight this admit; subsequent weekly scaled weights Addendum: 03/03/23 at [address] Amended: Links added.
--- NOTE | 2023-03-03 14:08 | NUR ---
PRESSURE ULCER EDUCATION: DEFINITION: A pressure ulcer is an area of skin that breaks down when you stay in one position too long. The constant pressure against the skin reduces the blood flow to that area and the affected tissue dies. CAUSES: "Being bedridden or in a wheelchair "Fragile skin "Having a chronic condition, such as diabetes or vascular disease "Inability to move certain parts of your body without assistance "Older age "Incontinence of urine or stool SYMPTOMS: "A reddened area that DOES NOT turn white when pressed on - this can be the beginning of a pressure ulcer "A blister, deep sore or a crater - these can be advanced pressure ulcers FIRST AID: "Relieve the pressure on this area "Keep the area clean and dry "Call your primary doctor if you see any of the above symptoms "DO NOT massage the area "DO NOT use a donut shaped or ring shaped pillow- these actually interfere with the blood flow and cause complications PREVENTION: "Check for pressure ulcers everyday "Change position at least every two hours to relieve pressure "Use items that help relieve pressure- pillows, sheepskin, foam padding, and powders. "Keep skin clean and dry "Eat healthy well balanced meals "Exercise daily IF YOU SEE ANY OF THESE SYMPTOMS WHILE IN THE HOSPITAL - TELL YOUR NURSE IMMEDIATELY. IF YOU SEE ANY OF THESE SYMPTOMS WHILE AT HOME OR HAVE ANY QUESTIONS OR CONCERNS ABOUT PRESSURE ULCERS - CALL YOUR PRIMARY DOCTOR IMMEDIATELY. Addendum: 03/03/23 at 1409 by Ayala Marroquin RN Amended: Links added.
[2023-03-03] MEDS: diltiazem-NS 100mg/100ml 100 ML IV SCH (14:58)
--- NOTE | 2023-03-03 18:45 | NUR ---
ORIENTEE documentation: I have reviewed and agree with all interventions, assessments performed and documented by EH BATES .ORIENTEE Medication Administration: For this medication-pass time frame, all medication were reviewed, dispensed, administered and documented per hospital policy by EH BATES. Problems reprioritized. Patient report given, questions answered & plan of care reviewed with EH LYNN.
[2023-03-03] MEDS: ipratropium/albuterol 3ml nebule NEB PRN (20:07)
--- NOTE | 2023-03-03 20:22 | NUR ---
Pt. strongly advised to wear Bipap Pt. refusing. Pt. stated that they will wear [facility]NC Addendum: 03/03/23 at 2022 by Chris Malone RT Amended: Links added.
[2023-03-03] MEDS: insulin glargine (Lantus) pen - multi-dose SQ SCH (21:28)
[2023-03-04] VITALS (8 sets, daily range): BP systolic 108–121; BP diastolic 70–85
--- NOTE | 2023-03-04 01:56 | NUR ---
Around 2034 pt was on nasal cannula with O2 sat between 86-89,every advice and attempt made to put her on bipap was to no avail as pt refused. MD was notified of pts low O2 and refusal to use bipap.According to MD ,there is nothing to be done as pt purposefully refused the bipap. Pt later agreed to use the high flow which increased her O2 to 90-91,but went back to the 80s with sob after about 2hr of using the high flow.Around 2230 pts sat was in the 70s - 80s with increased sob and heart rate in the 130s-140s.RT was notified but he said there was nothing he can do since pt refused to pt on her bipap.It took two nurses to persuade the pt to accept the bipap. was notified of the situation,and He orderer increase of cardizem rate from 5mL to 10mL/hr and bipap use from every night to PRN as
[2023-03-04] MEDS: diltiazem-NS 100mg/100ml 100 ML IV SCH ×2 (03:37→13:27)
--- NOTE | 2023-03-04 06:30 | NUR ---
Patient in room PCU 3020. I have received report from Liyah STAUFFER and had the opportunity to ask questions and assume patient care. Addendum: 03/04/23 at 0709 by Sheri Sanford RN Amended: Links added.
--- NOTE | 2023-03-04 06:49 | NUR ---
Problems reprioritized. Patient report given, questions answered & plan of care reviewed with EMMANUEL STAUFFER.
[2023-03-04] MEDS: ipratropium/albuterol 3ml nebule NEB PRN ×2 (07:16→14:49)
[2023-03-04] MEDS: K and/or MAG REPLACEMENT MC SCH ×2 (08:00→19:35)
[2023-03-04] MEDS: HYDROmorphone 1 mg/ml syringe IV PRN (08:21)
[2023-03-04] MEDS: methylPREDNISolone sod succ/PF 40mg inj. IV SCH ×3 (08:21→20:04)
[2023-03-04] MEDS: duloxetine 30mg CAPSULE.DR PO SCH (08:23)
[2023-03-04] MEDS: apixaban 5mg tablet PO SCH ×2 (08:24→20:03)
[2023-03-04] MEDS: gabapentin 300mg capsule PO SCH ×2 (08:24→20:04)
[2023-03-04] MEDS: azithromycin 250mg tablet PO SCH (08:24)
[2023-03-04] MEDS: docusate sod 100mg capsule PO SCH ×2 (08:24→20:04)
[2023-03-04] MEDS: roflumilast 500mcg tablet PO SCH (08:25)
[2023-03-04] MEDS: clopidogrel 75mg tablet PO SCH (08:25)
[2023-03-04] MEDS: CefTRIAXone/D5W-Rocephin 1gm 50 ML IV SCH (08:29)
[2023-03-04] MEDS: magnesium hydroxide 30ml (MOM) UD suspension PO PRN (09:14)
[2023-03-04] MEDS: insulin Lispro (HumaLOG) vial - multi-dose SQ SCH ×3 (09:16→20:06)
--- NOTE | 2023-03-04 09:19 | NUR ---
F/u: Pt seen by wound care, per note pt with a stage I to sacrococcygeal and right heel that are intact, venous stasis ulceration to LLE, and an abrasion to right great toe. Noted pt continues eating poorly, documented with mostly 0-25% PO intake of meals. Recommend Ensure Enlive TID to optimize nutrition status, to be sent pending physician approval in EMR. Will continue to follow closely and monitor need for further nutrition intervention. Addendum: 03/04/23 at [address] Amended: Links added.
[2023-03-04] MEDS: albuterol 2.5 MG/3 ML nebule NEB PRN (11:23)
--- NOTE | 2023-03-04 11:58 | NUR ---
I informed PT that Dr Macias has changed his mind. Stating that Pt could have 0.05mg of IV Dilaudid with or without BIPAP compliance. She stated "Well he is a lyer too!"
[2023-03-04] MEDS: HYDROmorphone inj. 0.5 MG/0.5 ML DISP.SYRIN IV PRN ×2 (12:46→17:19)
[2023-03-04] MEDS: normal saline 1000ml 1,000 ML IV SCH (12:47)
[2023-03-04] MEDS: lactose-reduced food (Ensure Enlive) - 237ml bottle PO SCH ×2 (12:56→18:01)
--- NOTE | 2023-03-04 13:55 | NUR ---
Adult protective services at bedside.
--- NOTE | 2023-03-04 18:26 | NUR ---
Problems reprioritized. Patient report given, questions answered & plan of care reviewed with Gómez STAUFFER. Pt eating dinner. Watching TV. Addendum: 03/04/23 at 1827 by Sheri Sanford RN Amended: Links added.
[2023-03-04] MEDS: insulin glargine (Lantus) pen - multi-dose SQ SCH (21:28)
[2023-03-05] VITALS (10 sets, daily range): BP systolic 110–130; BP diastolic 71–92
[2023-03-05] MEDS: albuterol 2.5 MG/3 ML nebule NEB PRN (00:45)
[2023-03-05] MEDS: diltiazem-NS 100mg/100ml 100 ML IV SCH ×4 (00:59→19:27)
--- NOTE | 2023-03-05 01:15 | NUR ---
I went in to talk to patient to try to convince her to wear the bipap for her respiratory issues, educated her on risk of not wearing the bipap. She adamantly declined to wear the mask/machine.
[2023-03-05] MEDS: HYDROmorphone inj. 0.5 MG/0.5 ML DISP.SYRIN IV PRN ×2 (03:23→14:39)
[2023-03-05 03:29] LABS: ABG BASE EXCESS 6.2 mmol/L (-2.0-2.0); ABG HCO3 30.9 mmol/L (22.0-26.0); ABG OXYGEN SATURATION 78.9 % (94-97); ABG PCO2 (T) 44.7 mmHg (32.0-45.0); ABG PO2 (T) 42.3 mmHg (75.0-100.0); ALLEN'S TEST POSITIVE; FCOHb 0.3 % (0.0-3.9); FMetHb 0.2 % (0.0-1.5); FO2Hb 78.5 % (94-97); PATIENT TEMPERATURE 36.9; TOTAL HEMOGLOBIN 11.9 G/dl (12.0-16.0)
[2023-03-05] MEDS: ondansetron/PF 4mg/2ml inj IV PRN ×2 (03:35→16:26)
[2023-03-05 04:40] LABS: BASOPHILS % (AUTO) 0 % (0-1); EOSINOPHILS % (AUTO) 0 % (0-6); HEMATOCRIT 34.3 % (35.0-45.0); HEMOGLOBIN 10.5 g/dl (12.0-16.0); LYMPHOCYTES # (AUTO) 0.6 X10'3 (1.1-4.8); LYMPHOCYTES % (AUTO) 4.8 % (21-51); MEAN CORPUSCULAR HEMOGLOBIN 28.3 PG (27.0-31.0); MEAN CORPUSCULAR HGB CONC 30.7 g/dL (33.0-36.5); MEAN CORPUSCULAR VOLUME 92.3 FL (78-98); MEAN PLATELET VOLUME 7.1 FL (7.4-10.4); MONOCYTES # (AUTO) 0.9 X10'3 (0-0.9); MONOCYTES % (AUTO) 6.9 % (2-12); NEUTROPHILS # (AUTO) 11.9 X10'3 (1.8-7.7); NEUTROPHILS % (AUTO) 88.3 % (42-75); PLATELET COUNT 323 X10'3 (140-440); RED BLOOD COUNT 3.72 X10'6 (4.20-5.60); RED CELL DISTRIBUTION WIDTH 18.3 % (11.5-14.5); WHITE BLOOD COUNT 13.5 X10'3 (4.5-11.0)
[2023-03-05 04:52] LABS: ALANINE AMINOTRANSFERASE 28 U/L (12-78); ALBUMIN 1.8 G/DL (3.4-5.0); ALBUMIN/GLOBULIN RATIO 0.5 (1.1-1.5); ALKALINE PHOSPHATASE 197 IU/L (46-116); ANION GAP 2 (8-16); ASPARTATE AMINO TRANSFERASE 44 U/L (10-37); BILIRUBIN,TOTAL 0.2 MG/DL (0.1-1.0); BLOOD UREA NITROGEN 33 MG/DL (7-18); BUN/CREATININE RATIO 37.1 (10.0-20.0); CALCIUM 8.9 MG/DL (8.5-10.1); CHLORIDE 102 MMOL/L (99-107); CREATININE 0.89 MG/DL (0.40-0.90); GLUCOSE 130 MG/DL (70-104); MAGNESIUM 2.8 MG/DL (1.5-2.4); POTASSIUM 4.3 MMOL/L (3.5-5.1); SODIUM 135 MMOL/L (135-145); TOTAL CARBON DIOXIDE 31.3 MMOL/L (24-32); TOTAL PROTEIN 5.7 G/DL (6.4-8.2); eGFR 63 ML/MIN
--- NOTE | 2023-03-05 06:41 | NUR ---
Patient in room PCU 3020. I have received report from Gómez STAUFFER and had the opportunity to ask questions and assume patient care. Pt is laying high fowlers in bed and is resting comfortably. Pt on 12L high flow, no s/s of distress, no s/s of pain at this time. BLL, call ligth within reach, frequently used items in reach, frequent rounding, electrician apprentice powerhouse socks on. Will conrinue to monitor.
--- NOTE | 2023-03-05 06:42 | NUR ---
Patient in room PCU 3020. I have received report from Gómez STAUFFER and had the opportunity to ask questions and assume patient care.
[2023-03-05] MEDS: lactose-reduced food (Ensure Enlive) - 237ml bottle PO SCH ×3 (08:00→18:00)
[2023-03-05] MEDS: K and/or MAG REPLACEMENT MC SCH ×2 (08:00→20:00)
[2023-03-05] MEDS: ipratropium/albuterol 3ml nebule NEB PRN (08:31)
[2023-03-05] MEDS: insulin Lispro (HumaLOG) vial - multi-dose SQ SCH (08:45)
[2023-03-05] MEDS: CefTRIAXone/D5W-Rocephin 1gm 50 ML IV SCH (08:53)
[2023-03-05] MEDS: apixaban 5mg tablet PO SCH ×2 (08:58→19:28)
[2023-03-05] MEDS: methylPREDNISolone sod succ/PF 40mg inj. IV SCH ×3 (08:58→20:19)
[2023-03-05] MEDS: gabapentin 300mg capsule PO SCH ×2 (08:59→19:28)
[2023-03-05] MEDS: clopidogrel 75mg tablet PO SCH (08:59)
[2023-03-05] MEDS: docusate sod 100mg capsule PO SCH ×2 (09:00→19:29)
[2023-03-05] MEDS: roflumilast 500mcg tablet PO SCH (09:00)
[2023-03-05] MEDS: azithromycin 250mg tablet PO SCH (09:00)
[2023-03-05] MEDS: duloxetine 30mg CAPSULE.DR PO SCH (09:02)
--- NOTE | 2023-03-05 09:15 | NUR ---
PAGER ID: [phone] MESSAGE: Milady Kapoor [phone]- May this Pt have an order for IV Lasix? RT suggestion d/t wet lung sounds & increased O2 demand. -Farnaz EXT [id number] Addendum: 03/05/23 at 1141 by Farnaz Masterson RN New orders given please see interventions.
[2023-03-05] MEDS: magnesium hydroxide 30ml (MOM) UD suspension PO PRN (09:41)
[2023-03-05] MEDS: fluticasone nasal spray 16GM bottle NS SCH (09:43)
[2023-03-05] MEDS: salt irrigation nasal spray 45 ML SPRAY NS SCH (09:43)
--- NOTE | 2023-03-05 10:00 | NUR ---
Spoke with [employer] Herlinda Huynh about course and wet lungs. Order rec for Lasix IV 40mg now.
[2023-03-05] MEDS ORDERED: furosemide 40mg/4ml inj IV ONE (10:10)
--- NOTE | 2023-03-05 11:40 | NUR ---
RT in room with RN and patient. Pt SOB, sats at 74%. RT placed pt on 50L heated high flow and sats at 83%. discussed with patient if she is still open to use of a ventilator PRN. Pt strongly expressed not wanting to be put on vent. Discussed code status options and pt requested to speak with Dr Macias about allowing compressions and meds, but not using a vent. Page sent to .
--- NOTE | 2023-03-05 11:40 | NUR ---
Milady Kapoor- New order for midline placement.-Farnaz EXT [id number] Page to PICC nurse Group
--- NOTE | 2023-03-05 12:04 | NUR ---
Page Sent to Dr Macias promotional table spacer PAGER ID: [phone] MESSAGE: Mavis STAUFFER [id number]. [id number] Emelia. Pt stating she does not want to be placed on vent if needed. Currently full code. Pt would like to discuss code status. Timmy RT placed pt on 50L heated high flow, sats @ 83%. Thanks
--- NOTE | 2023-03-05 18:23 | NUR ---
Problems reprioritized. Patient report given, questions answered & plan of care reviewed with Uriel STAUFFER.
[2023-03-05] MEDS: furosemide 40mg/4ml inj IV SCH (19:28)
[2023-03-05] MEDS: acetaminophen 325mg tablet PO PRN (19:29)
[2023-03-05] MEDS: insulin glargine (Lantus) pen - multi-dose SQ SCH (21:34)
[2023-03-06] VITALS (14 sets, daily range): BP systolic 85–151; BP diastolic 56–95
[2023-03-06] MEDS ORDERED: diltiazem-NS 100mg/100ml 100 ML IV SCH (00:20)
[2023-03-06] MEDS: acetaminophen 325mg tablet PO PRN (03:28)
[2023-03-06] MEDS: diltiazem-NS 100mg/100ml 100 ML IV SCH ×4 (04:24→23:30)
[2023-03-06 06:16] LABS: ALANINE AMINOTRANSFERASE 24 U/L (12-78); ALBUMIN 1.9 G/DL (3.4-5.0); ALBUMIN/GLOBULIN RATIO 0.5 (1.1-1.5); ALKALINE PHOSPHATASE 175 IU/L (46-116); ANION GAP 4 (8-16); ASPARTATE AMINO TRANSFERASE 23 U/L (10-37); BILIRUBIN,TOTAL 0.3 MG/DL (0.1-1.0); BLOOD UREA NITROGEN 31 MG/DL (7-18); BUN/CREATININE RATIO 34.4 (10.0-20.0); CALCIUM 8.8 MG/DL (8.5-10.1); CHLORIDE 100 MMOL/L (99-107); GLUCOSE 131 MG/DL (70-104); POTASSIUM 4.5 MMOL/L (3.5-5.1); SODIUM 137 MMOL/L (135-145); TOTAL CARBON DIOXIDE 33.1 MMOL/L (24-32); TOTAL PROTEIN 5.7 G/DL (6.4-8.2); eGFR 63 ML/MIN
[2023-03-06 06:20] LABS: BASOPHILS % (AUTO) 0 % (0-1); EOSINOPHILS % (AUTO) 0 % (0-6); HEMATOCRIT 32.9 % (35.0-45.0); HEMOGLOBIN 10.3 g/dl (12.0-16.0); LYMPHOCYTES # (AUTO) 0.7 X10'3 (1.1-4.8); LYMPHOCYTES % (AUTO) 5.6 % (21-51); MEAN CORPUSCULAR HEMOGLOBIN 29.3 PG (27.0-31.0); MEAN CORPUSCULAR HGB CONC 31.4 g/dL (33.0-36.5); MEAN CORPUSCULAR VOLUME 93.1 FL (78-98); MEAN PLATELET VOLUME 6.9 FL (7.4-10.4); MONOCYTES # (AUTO) 0.5 X10'3 (0-0.9); MONOCYTES % (AUTO) 4.7 % (2-12); NEUTROPHILS # (AUTO) 10.4 X10'3 (1.8-7.7); NEUTROPHILS % (AUTO) 89.7 % (42-75); PLATELET COUNT 283 X10'3 (140-440); RED BLOOD COUNT 3.54 X10'6 (4.20-5.60); RED CELL DISTRIBUTION WIDTH 17.5 % (11.5-14.5); WHITE BLOOD COUNT 11.6 X10'3 (4.5-11.0)
--- NOTE | 2023-03-06 06:25 | NUR ---
Patient in room PCU 3020. I have received report from Uriel and had the opportunity to ask questions and assume patient care.
[2023-03-06] MEDS: ipratropium/albuterol 3ml nebule NEB PRN ×2 (07:04→22:58)
[2023-03-06] MEDS: HYDROmorphone inj. 0.5 MG/0.5 ML DISP.SYRIN IV PRN ×3 (07:18→19:43)
[2023-03-06] MEDS: CefTRIAXone/D5W-Rocephin 1gm 50 ML IV SCH (07:22)
[2023-03-06] MEDS: K and/or MAG REPLACEMENT MC SCH ×2 (08:00→18:55)
[2023-03-06] MEDS: lactose-reduced food (Ensure Enlive) - 237ml bottle PO SCH ×3 (08:00→18:00)
[2023-03-06] MEDS: methylPREDNISolone sod succ/PF 40mg inj. IV SCH ×3 (08:02→20:03)
[2023-03-06] MEDS: furosemide 40mg/4ml inj IV SCH ×2 (08:03→19:43)
[2023-03-06] MEDS: duloxetine 30mg CAPSULE.DR PO SCH (09:43)
[2023-03-06] MEDS: gabapentin 300mg capsule PO SCH ×2 (09:43→19:42)
[2023-03-06] MEDS: roflumilast 500mcg tablet PO SCH (09:43)
[2023-03-06] MEDS: apixaban 5mg tablet PO SCH ×2 (09:43→19:42)
[2023-03-06] MEDS: clopidogrel 75mg tablet PO SCH (09:44)
[2023-03-06] MEDS: docusate sod 100mg capsule PO SCH ×2 (09:44→19:42)
[2023-03-06] MEDS: albuterol 2.5 MG/3 ML nebule NEB PRN (10:35)
--- NOTE | 2023-03-06 13:08 | NUR ---
Reassessment: Overall pt eating poorly, documented with average 31% PO intake of meals since 03/04 and only 50% PO intake of two ONS with refusal of three. Pt seen at bedside, states she always has a low appetite. Pt states she is drinking the Ensure reporting 100% PO intake of ONS this morning. RD encouraged PO intake of meals and ONS to optimize nutrition status, pt verbalized understanding. Food preferences were obtained and d/w dietary, see below. Pt denies food allergies or difficulty chewing/swallowing. Still no BM since admit. Per EMR pt receiving routine Colace BID and received PRN Dulcolax suppository today with PRN MoM 03/04 and 03/05. Hopeful that pt will have a BM soon as constipation can impact appetite and subsequently PO intake. Will continue to follow closely. Recommendations: 1) Continue heart healthy diet; discontinue CHO controlled restriction given T2DM well controlled with A1c 5.9%; liberalize to regular diet if PO intake does not improve 2) [place] Ensure Enlive TID 3) [place] food preferences: ice with ONS TID, diet lemon rincon soda BIDLD 4) Routine bowel care; utilize PRN bowel care; no documented BM since admit 5) Scaled weight this admit; subsequent weekly scaled weights Addendum: 03/06/23 at [address] Amended: Links added.
--- NOTE | 2023-03-06 13:55 | NUR ---
Notification: to Dr. Quinn Message: [phone] Carter Kapoor Afib. HR is 160-180. Asymptomatic PCU Richie STAUFFER [phone] Please call us.
[2023-03-06] MEDS: insulin Lispro (HumaLOG) vial - multi-dose SQ SCH ×2 (14:27→19:46)
[2023-03-06] MEDS: salt irrigation nasal spray 45 ML SPRAY NS SCH (15:28)
[2023-03-06] MEDS: fluticasone nasal spray 16GM bottle NS SCH (15:29)
[2023-03-06] MEDS: magnesium hydroxide 30ml (MOM) UD suspension PO PRN (19:42)
[2023-03-06] MEDS: ondansetron/PF 4mg/2ml inj IV PRN (20:03)
--- NOTE | 2023-03-06 21:18 | NUR ---
8. doctor monzon was paged regarding elevated heartrate and stable bloodpressure, in attempt to titrate up on cardizem drip. Addendum: 03/07/23 at 0523 by Uriel Boland RN new orders eventually received. patient stable tolerating medication.
[2023-03-06] MEDS: insulin glargine (Lantus) pen - multi-dose SQ SCH (22:11)
[2023-03-07] VITALS (11 sets, daily range): BP systolic 103–126; BP diastolic 59–88
[2023-03-07] MEDS: HYDROmorphone inj. 0.5 MG/0.5 ML DISP.SYRIN IV PRN ×4 (03:56→21:49)
[2023-03-07] MEDS: diltiazem-NS 100mg/100ml 100 ML IV SCH ×4 (05:33→19:37)
[2023-03-07] MEDS: CefTRIAXone/D5W-Rocephin 1gm 50 ML IV SCH (08:00)
[2023-03-07] MEDS: K and/or MAG REPLACEMENT MC SCH ×2 (08:00→20:00)
[2023-03-07] MEDS: fluticasone nasal spray 16GM bottle NS SCH (08:00)
[2023-03-07] MEDS: clopidogrel 75mg tablet PO SCH (08:00)
[2023-03-07] MEDS: salt irrigation nasal spray 45 ML SPRAY NS SCH (08:00)
[2023-03-07] MEDS: lactose-reduced food (Ensure Enlive) - 237ml bottle PO SCH ×3 (08:00→17:52)
[2023-03-07] MEDS: furosemide 40mg/4ml inj IV SCH ×2 (09:27→19:45)
[2023-03-07] MEDS: methylPREDNISolone sod succ/PF 40mg inj. IV SCH ×3 (09:27→19:43)
[2023-03-07] MEDS: roflumilast 500mcg tablet PO SCH (09:28)
[2023-03-07] MEDS: duloxetine 30mg CAPSULE.DR PO SCH (09:28)
[2023-03-07] MEDS: gabapentin 300mg capsule PO SCH ×2 (09:28→19:41)
[2023-03-07] MEDS: apixaban 5mg tablet PO SCH ×2 (09:29→19:40)
[2023-03-07] MEDS: docusate sod 100mg capsule PO SCH ×2 (09:29→20:00)
[2023-03-07] MEDS: HYDROcodone/acetaminophen 10/325mg tab PO PRN ×3 (09:30→19:40)
[2023-03-07 11:25] LABS: BASOPHILS % (AUTO) 0.2 % (0-1); EOSINOPHILS % (AUTO) 0 % (0-6); HEMATOCRIT 34.3 % (35.0-45.0); HEMOGLOBIN 10.6 g/dl (12.0-16.0); LYMPHOCYTES # (AUTO) 0.7 X10'3 (1.1-4.8); LYMPHOCYTES % (AUTO) 3.7 % (21-51); MEAN CORPUSCULAR HEMOGLOBIN 29.1 PG (27.0-31.0); MEAN CORPUSCULAR HGB CONC 30.8 g/dL (33.0-36.5); MEAN CORPUSCULAR VOLUME 94.4 FL (78-98); MEAN PLATELET VOLUME 7.1 FL (7.4-10.4); MONOCYTES # (AUTO) 1.3 X10'3 (0-0.9); MONOCYTES % (AUTO) 6.6 % (2-12); NEUTROPHILS # (AUTO) 17.1 X10'3 (1.8-7.7); NEUTROPHILS % (AUTO) 89.5 % (42-75); PLATELET COUNT 380 X10'3 (140-440); RED BLOOD COUNT 3.63 X10'6 (4.20-5.60); RED CELL DISTRIBUTION WIDTH 17.5 % (11.5-14.5); WHITE BLOOD COUNT 19.1 X10'3 (4.5-11.0)
[2023-03-07 11:32] LABS: ANION GAP 4 (8-16); BLOOD UREA NITROGEN 29 MG/DL (7-18); BUN/CREATININE RATIO 44.6 (10.0-20.0); CHLORIDE 98 MMOL/L (99-107); CREATININE 0.65 MG/DL (0.40-0.90); GLUCOSE 244 MG/DL (70-104); POTASSIUM 4.4 MMOL/L (3.5-5.1); SODIUM 138 MMOL/L (135-145); TOTAL CARBON DIOXIDE 35.8 MMOL/L (24-32); eGFR > 90 ML/MIN
[2023-03-07] MEDS: ipratropium/albuterol 3ml nebule NEB PRN (12:20)
[2023-03-07] MEDS: albuterol 2.5 MG/3 ML nebule NEB PRN (15:05)
--- NOTE | 2023-03-07 16:12 | NUR ---
UNABLE TO TAKE WOUND CARE PICS DUE TO LOW PATIENT STAFFING AND MY WORKLOAD PREVENTED Addendum: 03/07/23 at 1613 by Ela Loera RN Amended: Links added.
[2023-03-07] MEDS: magnesium hydroxide 30ml (MOM) UD suspension PO PRN (16:21)
[2023-03-07] MEDS: clonazePAM 0.5mg tablet PO PRN (19:38)
[2023-03-07] MEDS: insulin glargine (Lantus) pen - multi-dose SQ SCH (21:46)
[2023-03-07] MEDS: ondansetron/PF 4mg/2ml inj IV PRN (21:48)
[2023-03-08] VITALS (19 sets, daily range): BP systolic 95–126; BP diastolic 67–87
[2023-03-08] MEDS: diltiazem-NS 100mg/100ml 100 ML IV SCH ×4 (02:22→22:30)
[2023-03-08] MEDS: HYDROmorphone inj. 0.5 MG/0.5 ML DISP.SYRIN IV PRN ×5 (03:38→20:42)
[2023-03-08] MEDS: albuterol 2.5 MG/3 ML nebule NEB PRN ×2 (04:13→23:06)
[2023-03-08 06:22] LABS: BASOPHILS % (AUTO) 0.1 % (0-1); EOSINOPHILS % (AUTO) 0 % (0-6); HEMATOCRIT 30.9 % (35.0-45.0); HEMOGLOBIN 9.3 g/dl (12.0-16.0); LYMPHOCYTES # (AUTO) 0.6 X10'3 (1.1-4.8); LYMPHOCYTES % (AUTO) 3.5 % (21-51); MEAN CORPUSCULAR HEMOGLOBIN 28.4 PG (27.0-31.0); MEAN CORPUSCULAR HGB CONC 30.3 g/dL (33.0-36.5); MEAN CORPUSCULAR VOLUME 93.9 FL (78-98); MEAN PLATELET VOLUME 7.4 FL (7.4-10.4); MONOCYTES # (AUTO) 0.9 X10'3 (0-0.9); MONOCYTES % (AUTO) 5.1 % (2-12); NEUTROPHILS # (AUTO) 16.3 X10'3 (1.8-7.7); NEUTROPHILS % (AUTO) 91.3 % (42-75); PLATELET COUNT 394 X10'3 (140-440); RED BLOOD COUNT 3.28 X10'6 (4.20-5.60); RED CELL DISTRIBUTION WIDTH 17.2 % (11.5-14.5); WHITE BLOOD COUNT 17.8 X10'3 (4.5-11.0)
[2023-03-08 06:34] LABS: ALANINE AMINOTRANSFERASE 35 U/L (12-78); ALBUMIN/GLOBULIN RATIO 0.6 (1.1-1.5); ALKALINE PHOSPHATASE 209 IU/L (46-116); ANION GAP 1 (8-16); ASPARTATE AMINO TRANSFERASE 32 U/L (10-37); BILIRUBIN,TOTAL 0.4 MG/DL (0.1-1.0); BLOOD UREA NITROGEN 28 MG/DL (7-18); BUN/CREATININE RATIO 40.6 (10.0-20.0); CALCIUM 9.3 MG/DL (8.5-10.1); CHLORIDE 98 MMOL/L (99-107); CREATININE 0.69 MG/DL (0.40-0.90); GLUCOSE 200 MG/DL (70-104); MAGNESIUM 3.1 MG/DL (1.5-2.4); PHOSPHORUS 3.5 MG/DL (2.3-4.5); POTASSIUM 4.6 MMOL/L (3.5-5.1); SODIUM 138 MMOL/L (135-145); TOTAL CARBON DIOXIDE 38.6 MMOL/L (24-32); TOTAL PROTEIN 5.4 G/DL (6.4-8.2); eGFR 85 ML/MIN
[2023-03-08] MEDS: CefTRIAXone/D5W-Rocephin 1gm 50 ML IV SCH (07:53)
[2023-03-08] MEDS: HYDROcodone/acetaminophen 10/325mg tab PO PRN ×2 (07:55→16:26)
[2023-03-08] MEDS: docusate sod 100mg capsule PO SCH ×2 (07:56→20:40)
[2023-03-08] MEDS: duloxetine 30mg CAPSULE.DR PO SCH (07:56)
[2023-03-08] MEDS: gabapentin 300mg capsule PO SCH ×2 (07:56→20:39)
[2023-03-08] MEDS: roflumilast 500mcg tablet PO SCH (07:56)
[2023-03-08] MEDS: furosemide 40mg/4ml inj IV SCH ×2 (07:57→20:44)
[2023-03-08] MEDS: apixaban 5mg tablet PO SCH ×2 (07:57→20:40)
[2023-03-08] MEDS: methylPREDNISolone sod succ/PF 40mg inj. IV SCH ×2 (07:57→20:42)
[2023-03-08] MEDS: K and/or MAG REPLACEMENT MC SCH ×2 (08:00→20:00)
[2023-03-08] MEDS: clopidogrel 75mg tablet PO SCH (08:00)
[2023-03-08] MEDS: lactose-reduced food (Ensure Enlive) - 237ml bottle PO SCH ×3 (08:06→18:00)
[2023-03-08] MEDS: salt irrigation nasal spray 45 ML SPRAY NS SCH (08:07)
[2023-03-08] MEDS: fluticasone nasal spray 16GM bottle NS SCH (08:08)
[2023-03-08] MEDS: ipratropium/albuterol 3ml nebule NEB PRN ×2 (08:44→15:14)
--- NOTE | 2023-03-08 17:05 | NUR ---
Che WILKINS and myself set patient up on Non rebreather at 15L for transport per RT and Karon RN recommendation. Patient agreed to transport to CT at 1630. Patients IV medication were maintained throughout transport, no changes were made to flow rate. Patients tele monitor was in place during transport, no significant changes to rhythm or rate. Patient tolerated transport well, no complications en route. Patient back in room with bed in low position, bed rails up, High flow NC placed back on patient, call light within reach as well as telephone, bed side table also within arms reach. No other needs upon leaving patients room.
[2023-03-08] MEDS: amiodarone/D5 360MG/200ML BAG 200 ML IV SCH ×2 (18:55→20:44)
[2023-03-08] MEDS: insulin Lispro (HumaLOG) vial - multi-dose SQ SCH (19:23)
[2023-03-08] MEDS: ondansetron/PF 4mg/2ml inj IV PRN (20:50)
[2023-03-08] MEDS: clonazePAM 0.5mg tablet PO PRN (22:24)
[2023-03-08] MEDS: insulin glargine (Lantus) pen - multi-dose SQ SCH (22:24)
[2023-03-09] VITALS (24 sets, daily range): BP systolic 98–138; BP diastolic 47–90
[2023-03-09] MEDS: amiodarone/D5 360MG/200ML BAG 200 ML IV SCH ×4 (00:26→21:00)
[2023-03-09] MEDS: HYDROmorphone inj. 0.5 MG/0.5 ML DISP.SYRIN IV PRN ×5 (00:54→20:51)
[2023-03-09] MEDS: ipratropium/albuterol 3ml nebule NEB PRN ×3 (02:55→20:02)
[2023-03-09] MEDS: diltiazem-NS 100mg/100ml 100 ML IV SCH ×3 (04:35→19:46)
--- NOTE | 2023-03-09 06:45 | NUR ---
Problems reprioritized. Patient report given, questions answered & plan of care reviewed with Karon RN.
[2023-03-09 06:59] LABS: BASOPHILS % (AUTO) 0.3 % (0-1); EOSINOPHILS % (AUTO) 0 % (0-6); HEMATOCRIT 28.5 % (35.0-45.0); HEMOGLOBIN 8.7 g/dl (12.0-16.0); LYMPHOCYTES # (AUTO) 0.7 X10'3 (1.1-4.8); LYMPHOCYTES % (AUTO) 4.2 % (21-51); MEAN CORPUSCULAR HGB CONC 30.5 g/dL (33.0-36.5); MEAN CORPUSCULAR VOLUME 95.2 FL (78-98); MEAN PLATELET VOLUME 7.5 FL (7.4-10.4); MONOCYTES # (AUTO) 0.7 X10'3 (0-0.9); MONOCYTES % (AUTO) 4.2 % (2-12); NEUTROPHILS # (AUTO) 14.6 X10'3 (1.8-7.7); NEUTROPHILS % (AUTO) 91.3 % (42-75); PLATELET COUNT 388 X10'3 (140-440); RED BLOOD COUNT 2.99 X10'6 (4.20-5.60); RED CELL DISTRIBUTION WIDTH 17.6 % (11.5-14.5)
[2023-03-09 07:27] LABS: ALANINE AMINOTRANSFERASE 24 U/L (12-78); ALBUMIN/GLOBULIN RATIO 0.6 (1.1-1.5); ALKALINE PHOSPHATASE 147 IU/L (46-116); ANION GAP 4 (8-16); ASPARTATE AMINO TRANSFERASE 29 U/L (10-37); BILIRUBIN,TOTAL 0.2 MG/DL (0.1-1.0); BLOOD UREA NITROGEN 25 MG/DL (7-18); BUN/CREATININE RATIO 43.9 (10.0-20.0); CALCIUM 9.6 MG/DL (8.5-10.1); CHLORIDE 95 MMOL/L (99-107); CREATININE 0.57 MG/DL (0.40-0.90); GLUCOSE 188 MG/DL (70-104); MAGNESIUM 2.6 MG/DL (1.5-2.4); PHOSPHORUS 2.8 MG/DL (2.3-4.5); SODIUM 139 MMOL/L (135-145); TOTAL CARBON DIOXIDE 39.8 MMOL/L (24-32); TOTAL PROTEIN 5.4 G/DL (6.4-8.2); eGFR > 90 ML/MIN
[2023-03-09 07:28] LABS: POTASSIUM 5.1 MMOL/L (3.5-5.1)
[2023-03-09] MEDS: K and/or MAG REPLACEMENT MC SCH ×2 (08:00→20:00)
[2023-03-09] MEDS: apixaban 5mg tablet PO SCH ×2 (08:20→20:50)
[2023-03-09] MEDS: roflumilast 500mcg tablet PO SCH (08:20)
[2023-03-09] MEDS: duloxetine 30mg CAPSULE.DR PO SCH (08:20)
[2023-03-09] MEDS: docusate sod 100mg capsule PO SCH ×2 (08:20→20:50)
[2023-03-09] MEDS: furosemide 40mg/4ml inj IV SCH (08:21)
[2023-03-09] MEDS: gabapentin 300mg capsule PO SCH ×2 (08:21→20:50)
[2023-03-09] MEDS: HYDROcodone/acetaminophen 10/325mg tab PO PRN ×4 (08:21→23:57)
[2023-03-09] MEDS: methylPREDNISolone sod succ/PF 40mg inj. IV SCH ×2 (08:21→20:51)
[2023-03-09] MEDS: CefTRIAXone/D5W-Rocephin 1gm 50 ML IV SCH (08:29)
[2023-03-09] MEDS: salt irrigation nasal spray 45 ML SPRAY NS SCH (08:39)
[2023-03-09] MEDS: fluticasone nasal spray 16GM bottle NS SCH (08:39)
[2023-03-09] MEDS: lactose-reduced food (Ensure Enlive) - 237ml bottle PO SCH ×3 (08:39→18:00)
--- NOTE | 2023-03-09 12:04 | NUR ---
Reassessment: Pt s/p BSS 03/[address] recommending MM5 food with thin liquids which was liberalized to EC7 today after f/u BSS with ST. PO intake of meals remains low, documented with average 29% PO intake of meals since 03/07, however pt appears to have great acceptance to Ensure Enlive with average 75% PO intake of 9 ONS with refusal x 1. Combined PO intake of meals and ONS is meeting 90% estimated energy needs and 81% estimated protein needs. Physician paged with recommendation to liberalize to regular diet given poor meal intake and BG levels likely increased r/t steroid use as A1c 5.9%. At the very least recommend discontinuing CHO controlled diet as it is more restrictive in kcal and protein. LBM 03/08 per I&O. Will continue to follow and make recommendations as appropriate. Recommendations: 1) Liberalize to regular diet given poor meal intake and T2DM well controlled with A1c 5.9%; physician paged 03/09; texture modification per ST 2) [place] Ensure Enlive TID 3) [place] food preferences: ice with ONS TID, diet lemon campo soda BIDLD 4) Routine bowel care; utilize PRN bowel care given previous constipation 5) Scaled weight this admit; subsequent weekly scaled weights Addendum: 03/09/23 at [address] Amended: Links added.
[2023-03-09] MEDS: insulin Lispro (HumaLOG) vial - multi-dose SQ SCH (13:43)
[2023-03-09] MEDS: clonazePAM 0.5mg tablet PO PRN (14:26)
[2023-03-09] MEDS: ondansetron/PF 4mg/2ml inj IV PRN (20:52)
[2023-03-09] MEDS: insulin glargine (Lantus) pen - multi-dose SQ SCH (21:21)
[2023-03-10] VITALS (12 sets, daily range): BP systolic 98–127; BP diastolic 59–81
[2023-03-10] MEDS: amiodarone/D5 360MG/200ML BAG 200 ML IV SCH ×2 (01:34→09:40)
[2023-03-10] MEDS: HYDROmorphone inj. 0.5 MG/0.5 ML DISP.SYRIN IV PRN ×4 (01:35→19:57)
[2023-03-10] MEDS: diltiazem-NS 100mg/100ml 100 ML IV SCH ×2 (02:03→07:30)
[2023-03-10] MEDS: ipratropium/albuterol 3ml nebule NEB PRN ×3 (02:18→15:50)
--- NOTE | 2023-03-10 06:49 | NUR ---
Problems reprioritized. Patient report given, questions answered & plan of care reviewed with Maximiliano STAUFFER.
[2023-03-10] MEDS: gabapentin 300mg capsule PO SCH ×2 (07:32→19:56)
[2023-03-10] MEDS: CefTRIAXone 2gm/D5W 50ml BAG 50 ML IV SCH (07:32)
[2023-03-10] MEDS: furosemide 40mg/4ml inj IV SCH (07:33)
[2023-03-10] MEDS: docusate sod 100mg capsule PO SCH ×2 (07:34→19:56)
[2023-03-10] MEDS: roflumilast 500mcg tablet PO SCH (07:34)
[2023-03-10] MEDS: apixaban 5mg tablet PO SCH ×2 (07:34→19:57)
[2023-03-10] MEDS: methylPREDNISolone sod succ/PF 40mg inj. IV SCH ×2 (07:34→19:57)
[2023-03-10] MEDS: duloxetine 30mg CAPSULE.DR PO SCH (07:35)
[2023-03-10] MEDS: fluticasone nasal spray 16GM bottle NS SCH (07:35)
[2023-03-10] MEDS: salt irrigation nasal spray 45 ML SPRAY NS SCH (07:36)
[2023-03-10 07:42] LABS: BASOPHILS % (AUTO) 0 % (0-1); EOSINOPHILS % (AUTO) 0 % (0-6); HEMATOCRIT 25.8 % (35.0-45.0); HEMOGLOBIN 7.9 g/dl (12.0-16.0); LYMPHOCYTES # (AUTO) 0.5 X10'3 (1.1-4.8); LYMPHOCYTES % (AUTO) 3.7 % (21-51); MEAN CORPUSCULAR HEMOGLOBIN 29.4 PG (27.0-31.0); MEAN CORPUSCULAR HGB CONC 30.5 g/dL (33.0-36.5); MEAN CORPUSCULAR VOLUME 96.3 FL (78-98); MEAN PLATELET VOLUME 7.5 FL (7.4-10.4); MONOCYTES # (AUTO) 0.6 X10'3 (0-0.9); NEUTROPHILS # (AUTO) 12.7 X10'3 (1.8-7.7); NEUTROPHILS % (AUTO) 92.3 % (42-75); PLATELET COUNT 398 X10'3 (140-440); RED BLOOD COUNT 2.68 X10'6 (4.20-5.60); RED CELL DISTRIBUTION WIDTH 17.8 % (11.5-14.5); WHITE BLOOD COUNT 13.8 X10'3 (4.5-11.0)
[2023-03-10 07:58] LABS: ALANINE AMINOTRANSFERASE 17 U/L (12-78); ALBUMIN 1.9 G/DL (3.4-5.0); ALBUMIN/GLOBULIN RATIO 0.6 (1.1-1.5); ALKALINE PHOSPHATASE 121 IU/L (46-116); ANION GAP 0 (8-16); ASPARTATE AMINO TRANSFERASE 13 U/L (10-37); BILIRUBIN,TOTAL 0.2 MG/DL (0.1-1.0); BLOOD UREA NITROGEN 24 MG/DL (7-18); BUN/CREATININE RATIO 41.4 (10.0-20.0); CALCIUM 9.3 MG/DL (8.5-10.1); CHLORIDE 97 MMOL/L (99-107); CREATININE 0.58 MG/DL (0.40-0.90); GLUCOSE 210 MG/DL (70-104); MAGNESIUM 2.2 MG/DL (1.5-2.4); POTASSIUM 5.1 MMOL/L (3.5-5.1); SODIUM 139 MMOL/L (135-145); eGFR > 90 ML/MIN
[2023-03-10] MEDS: K and/or MAG REPLACEMENT MC SCH ×2 (08:00→20:01)
[2023-03-10] MEDS: lactose-reduced food (Ensure Enlive) - 237ml bottle PO SCH ×3 (08:00→16:02)
--- NOTE | 2023-03-10 08:11 | NUR ---
REPORTED CRITICAL VALUE TO PRIMARY RN
[2023-03-10] MEDS: insulin Lispro (HumaLOG) vial - multi-dose SQ SCH ×3 (09:43→19:59)
[2023-03-10] MEDS: HYDROcodone/acetaminophen 10/325mg tab PO PRN ×3 (09:58→21:54)
[2023-03-10] MEDS: amiodarone 200mg tablet PO SCH (10:20)
[2023-03-10] MEDS: diltiazem 30mg tablet PO SCH ×3 (10:20→19:56)
[2023-03-10] MEDS: magnesium hydroxide 30ml (MOM) UD suspension PO PRN (14:30)
[2023-03-10] MEDS ORDERED: ondansetron 4mg rapidly disintigrating tab PO PRN (15:55)
[2023-03-10] MEDS: albuterol 2.5 MG/3 ML nebule NEB PRN (19:28)
[2023-03-10] MEDS: insulin glargine (Lantus) pen - multi-dose SQ SCH (21:56)
[2023-03-11] VITALS (12 sets, daily range): BP systolic 101–142; BP diastolic 58–100
[2023-03-11] MEDS: diltiazem 30mg tablet PO SCH ×4 (01:44→19:25)
[2023-03-11] MEDS: HYDROmorphone inj. 0.5 MG/0.5 ML DISP.SYRIN IV PRN ×5 (05:05→23:52)
[2023-03-11 06:09] LABS: BASOPHILS % (AUTO) 0.1 % (0-1); EOSINOPHILS % (AUTO) 0 % (0-6); HEMATOCRIT 27.4 % (35.0-45.0); HEMOGLOBIN 8.3 g/dl (12.0-16.0); LYMPHOCYTES # (AUTO) 0.7 X10'3 (1.1-4.8); LYMPHOCYTES % (AUTO) 3.5 % (21-51); MEAN CORPUSCULAR HEMOGLOBIN 29.1 PG (27.0-31.0); MEAN CORPUSCULAR HGB CONC 30.4 g/dL (33.0-36.5); MEAN CORPUSCULAR VOLUME 95.8 FL (78-98); MEAN PLATELET VOLUME 7.4 FL (7.4-10.4); MONOCYTES # (AUTO) 0.7 X10'3 (0-0.9); MONOCYTES % (AUTO) 3.6 % (2-12); NEUTROPHILS # (AUTO) 17.5 X10'3 (1.8-7.7); NEUTROPHILS % (AUTO) 92.8 % (42-75); PLATELET COUNT 453 X10'3 (140-440); RED BLOOD COUNT 2.86 X10'6 (4.20-5.60); RED CELL DISTRIBUTION WIDTH 17.9 % (11.5-14.5); WHITE BLOOD COUNT 18.8 X10'3 (4.5-11.0)
[2023-03-11 06:12] LABS: ALANINE AMINOTRANSFERASE 21 U/L (12-78); ALBUMIN/GLOBULIN RATIO 0.6 (1.1-1.5); ALKALINE PHOSPHATASE 112 IU/L (46-116); ANION GAP -2 (8-16); ASPARTATE AMINO TRANSFERASE 20 U/L (10-37); BILIRUBIN,TOTAL 0.2 MG/DL (0.1-1.0); BLOOD UREA NITROGEN 22 MG/DL (7-18); CALCIUM 9.4 MG/DL (8.5-10.1); CHLORIDE 97 MMOL/L (99-107); CREATININE 0.44 MG/DL (0.40-0.90); GLUCOSE 105 MG/DL (70-104); MAGNESIUM 2.4 MG/DL (1.5-2.4); PHOSPHORUS 3.2 MG/DL (2.3-4.5); SODIUM 138 MMOL/L (135-145); TOTAL PROTEIN 5.2 G/DL (6.4-8.2); eGFR > 90 ML/MIN
[2023-03-11 06:17] LABS: TOTAL CARBON DIOXIDE 43.1 MMOL/L (24-32)
--- NOTE | 2023-03-11 06:26 | NUR ---
pt refusing to place bipap at this time. educated pt on elevated c02, she continues to refuse.
--- NOTE | 2023-03-11 06:49 | NUR ---
Patient in room PCU 3020. I have received report from celso sears and had the opportunity to ask questions and assume patient care.
[2023-03-11] MEDS: K and/or MAG REPLACEMENT MC SCH ×2 (07:39→19:28)
[2023-03-11] MEDS: ipratropium/albuterol 3ml nebule NEB PRN ×2 (07:44→15:44)
[2023-03-11] MEDS: apixaban 5mg tablet PO SCH ×2 (08:18→19:26)
[2023-03-11] MEDS: amiodarone 200mg tablet PO SCH (08:18)
[2023-03-11] MEDS: docusate sod 100mg capsule PO SCH ×2 (08:19→19:26)
[2023-03-11] MEDS: gabapentin 300mg capsule PO SCH ×2 (08:19→19:25)
[2023-03-11] MEDS: HYDROcodone/acetaminophen 10/325mg tab PO PRN ×2 (08:20→13:52)
[2023-03-11] MEDS: duloxetine 30mg CAPSULE.DR PO SCH (08:20)
[2023-03-11] MEDS: furosemide 40mg/4ml inj IV SCH (08:22)
[2023-03-11] MEDS: roflumilast 500mcg tablet PO SCH (08:22)
[2023-03-11] MEDS: methylPREDNISolone sod succ/PF 40mg inj. IV SCH ×2 (08:22→19:26)
[2023-03-11] MEDS: lactose-reduced food (Ensure Enlive) - 237ml bottle PO SCH ×3 (08:23→18:03)
[2023-03-11] MEDS: CefTRIAXone 2gm/D5W 50ml BAG 50 ML IV SCH (08:23)
[2023-03-11] MEDS: fluticasone nasal spray 16GM bottle NS SCH (08:40)
[2023-03-11] MEDS: salt irrigation nasal spray 45 ML SPRAY NS SCH (08:40)
[2023-03-11 10:43] LABS: LACTATE DEHYDROGENASE 366 U/L (81-234)
[2023-03-11] MEDS: albuterol 2.5 MG/3 ML nebule NEB PRN (11:49)
--- NOTE | 2023-03-11 12:03 | NUR ---
Pt up in recliner sp02 85-88% on 80% fio2 increased fio2 to 100% on Heated High flow RN notified, discussed in detail with patient option of bipap pt adamantly refusing bipap, suggested pallative care pt does not want to discuss other options at this time, RN aware. Addendum: 03/11/23 at 1205 by Fátima Shelton RT Amended: Links added.
[2023-03-11] MEDS: insulin Lispro (HumaLOG) vial - multi-dose SQ SCH ×2 (14:06→19:27)
--- NOTE | 2023-03-11 14:44 | NUR ---
Víctora complete, 1000ml removed, sample taken to lab. Pt placed back in bed without incident.
[2023-03-11 15:37] LABS: GLUCOSE,BODY FLUID 189 MG/DL; LDH,BODY FLUID 126 U/L
[2023-03-11 16:46] LABS: BFAPPEAR HAZY
[2023-03-11 16:49] LABS: BF RBC COUNT 1755 /CU MM; BF WBC COUNT 99 /CU MM (0-1000); BFCOLOR YELLOW; BFVOLUME 55 ML; LYMPHOCYTES,BODY FLUID 22 %; MONOCYTES,BODY FLUID 12 %; NEUTROPHILS,BODY FLUID 66 %
[2023-03-11 16:50] LABS: BF MESOTHELIAL CELLS FEW
--- NOTE | 2023-03-11 18:39 | NUR ---
Problems reprioritized. Patient report given, questions answered & plan of care reviewed with ANDRÉS STAUFFER.
[2023-03-11] MEDS: insulin glargine (Lantus) pen - multi-dose SQ SCH (21:13)
[2023-03-12] MEDS: diltiazem 30mg tablet PO SCH ×4 (01:33→19:55)
[2023-03-12 01:37] VITALS: BP 126/78
[2023-03-12] MEDS: HYDROmorphone inj. 0.5 MG/0.5 ML DISP.SYRIN IV PRN ×5 (03:56→20:58)
[2023-03-12 06:00] LABS: BASOPHILS % (AUTO) 0.2 % (0-1); EOSINOPHILS % (AUTO) 0 % (0-6); HEMATOCRIT 26.2 % (35.0-45.0); HEMOGLOBIN 8.1 g/dl (12.0-16.0); LYMPHOCYTES # (AUTO) 0.7 X10'3 (1.1-4.8); LYMPHOCYTES % (AUTO) 4.1 % (21-51); MEAN CORPUSCULAR HEMOGLOBIN 29.5 PG (27.0-31.0); MEAN CORPUSCULAR HGB CONC 30.8 g/dL (33.0-36.5); MEAN CORPUSCULAR VOLUME 95.7 FL (78-98); MEAN PLATELET VOLUME 7.2 FL (7.4-10.4); MONOCYTES # (AUTO) 0.8 X10'3 (0-0.9); NEUTROPHILS # (AUTO) 15.1 X10'3 (1.8-7.7); NEUTROPHILS % (AUTO) 90.7 % (42-75); PLATELET COUNT 449 X10'3 (140-440); RED BLOOD COUNT 2.74 X10'6 (4.20-5.60); RED CELL DISTRIBUTION WIDTH 18.5 % (11.5-14.5); WHITE BLOOD COUNT 16.7 X10'3 (4.5-11.0)
[2023-03-12 06:11] LABS: ALANINE AMINOTRANSFERASE 17 U/L (12-78); ALBUMIN 1.9 G/DL (3.4-5.0); ALBUMIN/GLOBULIN RATIO 0.6 (1.1-1.5); ALKALINE PHOSPHATASE 103 IU/L (46-116); ASPARTATE AMINO TRANSFERASE 19 U/L (10-37); BILIRUBIN,TOTAL 0.2 MG/DL (0.1-1.0); BLOOD UREA NITROGEN 26 MG/DL (7-18); BUN/CREATININE RATIO 47.3 (10.0-20.0); CALCIUM 9.1 MG/DL (8.5-10.1); CHLORIDE 94 MMOL/L (99-107); CREATININE 0.55 MG/DL (0.40-0.90); GLUCOSE 139 MG/DL (70-104); MAGNESIUM 2.3 MG/DL (1.5-2.4); PHOSPHORUS 3.6 MG/DL (2.3-4.5); POTASSIUM 4.6 MMOL/L (3.5-5.1); SODIUM 136 MMOL/L (135-145); TOTAL PROTEIN 4.9 G/DL (6.4-8.2); eGFR > 90 ML/MIN
[2023-03-12 06:27] LABS: ANION GAP -6 (8-16)
[2023-03-12 06:29] LABS: TOTAL CARBON DIOXIDE 47.6 MMOL/L (24-32)
[2023-03-12] MEDS: K and/or MAG REPLACEMENT MC SCH ×2 (06:36→19:29)
--- NOTE | 2023-03-12 06:37 | NUR ---
Patient in room PCU 3020. I have received report from celso sears and had the opportunity to ask questions and assume patient care.
[2023-03-12 06:56] VITALS: BP 122/81
--- NOTE | 2023-03-12 07:06 | NUR ---
PAGED DR CARRILLO RE: Message: TRINITY HODGES. CO2 47.6 , STILL REFUSING BIPAP. MELIDA [phone] TELE
--- NOTE | 2023-03-12 07:07 | NUR ---
PT REFUSING BIPAP. REEDUCATED PT ON ELEVATED CO2, CONT TO REFUSING. NOTIFIED
[2023-03-12] MEDS: ipratropium/albuterol 3ml nebule NEB PRN ×2 (07:32→15:18)
[2023-03-12 07:37] LABS: NUCLEATED RED BLOOD CELLS 1 /100WBC (0-0); TOTAL CELLS COUNTED 100
[2023-03-12 07:38] LABS: ANISOCYTOSIS 2+; PLATELET ESTIMATE INCREASED
[2023-03-12 07:39] LABS: POLYCHROMASIA 2+; STOMATOCYTES 2+
[2023-03-12] MEDS: CefTRIAXone 2gm/D5W 50ml BAG 50 ML IV SCH (08:16)
[2023-03-12] MEDS: apixaban 5mg tablet PO SCH ×2 (08:17→19:53)
[2023-03-12] MEDS: duloxetine 30mg CAPSULE.DR PO SCH (08:17)
[2023-03-12] MEDS: gabapentin 300mg capsule PO SCH ×2 (08:17→19:56)
[2023-03-12] MEDS: roflumilast 500mcg tablet PO SCH (08:17)
[2023-03-12] MEDS: amiodarone 200mg tablet PO SCH (08:18)
[2023-03-12] MEDS: furosemide 40mg/4ml inj IV SCH (08:18)
[2023-03-12] MEDS: methylPREDNISolone sod succ/PF 40mg inj. IV SCH ×2 (08:18→19:56)
[2023-03-12] MEDS: docusate sod 100mg capsule PO SCH ×2 (08:18→19:52)
[2023-03-12] MEDS: insulin Lispro (HumaLOG) vial - multi-dose SQ SCH ×3 (08:37→19:50)
[2023-03-12] MEDS: lactose-reduced food (Ensure Enlive) - 237ml bottle PO SCH ×3 (08:38→18:06)
[2023-03-12] MEDS: salt irrigation nasal spray 45 ML SPRAY NS SCH (08:39)
[2023-03-12] MEDS: fluticasone nasal spray 16GM bottle NS SCH (08:39)
[2023-03-12 11:02] VITALS: BP 122/81
[2023-03-12] MEDS: albuterol 2.5 MG/3 ML nebule NEB PRN ×2 (11:39→19:15)
[2023-03-12 14:19] LABS: ATYPICAL PANCA <1:20 titer (Neg:<1:20); CYTOPLASMIC (C-ANCA) <1:20 titer (Neg:<1:20); PERINUCLEAR (P-ANCA) <1:20 titer (Neg:<1:20)
[2023-03-12] MEDS: magnesium hydroxide 30ml (MOM) UD suspension PO PRN (15:24)
[2023-03-12 15:50] VITALS: BP 110/69
[2023-03-12 18:00] VITALS: BP 115/89
--- NOTE | 2023-03-12 18:00 | NUR ---
Patient in room PCU 3020. I have received report from MELIDA STAUFFER and had the opportunity to ask questions and assume patient care.
--- NOTE | 2023-03-12 18:39 | NUR ---
Problems reprioritized. Patient report given, questions answered & plan of care reviewed with GREGOR RN.
[2023-03-12] MEDS: HYDROcodone/acetaminophen 10/325mg tab PO PRN (19:53)
[2023-03-12] MEDS: insulin glargine (Lantus) pen - multi-dose SQ SCH (21:06)
[2023-03-12 22:00] VITALS: BP 116/85
--- NOTE | 2023-03-12 22:51 | NUR ---
Pt. Spo2 was 85 walking in the room, but resting comfortably and in no distress. Pt. coarse upon auscultation .I gave her 100% 02 for 2 minutes as she began PEP therapy/ secretion clearance. Pt placed back on 45% and 50L stating 87-89% and doping Addendum: 03/12/23 at 2256 by ANALY SHOOK RT Pt. Spo2 was 85 walking in the room, but resting comfortably and in no distress. Pt. coarse upon auscultation .I gave her 100% 02 for 2 minutes as she began PEP therapy/ secretion clearance. Pt placed back on 45% and 50L stating 87-89% and doing well.
[2023-03-13] MEDS: HYDROcodone/acetaminophen 10/325mg tab PO PRN ×3 (01:09→12:54)
[2023-03-13] MEDS: HYDROmorphone inj. 0.5 MG/0.5 ML DISP.SYRIN IV PRN ×3 (01:10→09:53)
[2023-03-13] MEDS: diltiazem 30mg tablet PO SCH ×2 (01:11→08:15)
[2023-03-13 02:00] VITALS: BP 130/76
[2023-03-13] MEDS: albuterol 2.5 MG/3 ML nebule NEB PRN (03:22)
--- NOTE | 2023-03-13 06:33 | NUR ---
Problems reprioritized. Patient report given, questions answered & plan of care reviewed with DEVEN STAUFFER.
[2023-03-13 06:45] LABS: BASOPHILS % (AUTO) 0.1 % (0-1); EOSINOPHILS % (AUTO) 0 % (0-6); HEMATOCRIT 28.7 % (35.0-45.0); HEMOGLOBIN 8.7 g/dl (12.0-16.0); LYMPHOCYTES # (AUTO) 0.7 X10'3 (1.1-4.8); LYMPHOCYTES % (AUTO) 3.9 % (21-51); MEAN CORPUSCULAR HEMOGLOBIN 29.4 PG (27.0-31.0); MEAN CORPUSCULAR HGB CONC 30.5 g/dL (33.0-36.5); MEAN CORPUSCULAR VOLUME 96.3 FL (78-98); MEAN PLATELET VOLUME 7.8 FL (7.4-10.4); MONOCYTES % (AUTO) 5.6 % (2-12); NEUTROPHILS # (AUTO) 15.7 X10'3 (1.8-7.7); NEUTROPHILS % (AUTO) 90.4 % (42-75); PLATELET COUNT 512 X10'3 (140-440); RED BLOOD COUNT 2.98 X10'6 (4.20-5.60); RED CELL DISTRIBUTION WIDTH 18.6 % (11.5-14.5); WHITE BLOOD COUNT 17.4 X10'3 (4.5-11.0)
[2023-03-13 06:52] LABS: ALBUMIN 2.1 G/DL (3.4-5.0); ANION GAP -4 (8-16); BLOOD UREA NITROGEN 27 MG/DL (7-18); BUN/CREATININE RATIO 49.1 (10.0-20.0); CALCIUM 9.3 MG/DL (8.5-10.1); CHLORIDE 96 MMOL/L (99-107); CREATININE 0.55 MG/DL (0.40-0.90); GLUCOSE 181 MG/DL (70-104); POTASSIUM 4.2 MMOL/L (3.5-5.1); SODIUM 137 MMOL/L (135-145); eGFR > 90 ML/MIN
[2023-03-13 06:56] LABS: TOTAL CARBON DIOXIDE 44.6 MMOL/L (24-32)
--- NOTE | 2023-03-13 07:04 | NUR ---
Charge aware RN does not feel trained or competent in regards to discharging/transferring a pt. of this high of acuity. States CM has most likely worked out any issues.
[2023-03-13 07:15] VITALS: BP 112/70
--- NOTE | 2023-03-13 07:27 | NUR ---
Message: Milady Kapoor [facility] CO2 44.6 Tonya [phone]
[2023-03-13 07:29] LABS: ANISOCYTOSIS 2+; PLATELET ESTIMATE INCREASED; POLYCHROMASIA 1+; STOMATOCYTES 2+
[2023-03-13] MEDS: K and/or MAG REPLACEMENT MC SCH (08:00)
[2023-03-13] MEDS: furosemide 40mg/4ml inj IV SCH (08:00)
[2023-03-13] MEDS: CefTRIAXone 2gm/D5W 50ml BAG 50 ML IV SCH (08:14)
[2023-03-13] MEDS: gabapentin 300mg capsule PO SCH (08:15)
[2023-03-13] MEDS: duloxetine 30mg CAPSULE.DR PO SCH (08:16)
[2023-03-13] MEDS: clonazePAM 0.5mg tablet PO PRN (08:16)
[2023-03-13] MEDS: roflumilast 500mcg tablet PO SCH (08:16)
[2023-03-13] MEDS: docusate sod 100mg capsule PO SCH (08:16)
[2023-03-13] MEDS: amiodarone 200mg tablet PO SCH (08:17)
[2023-03-13] MEDS: fluticasone nasal spray 16GM bottle NS SCH (08:17)
[2023-03-13] MEDS: methylPREDNISolone sod succ/PF 40mg inj. IV SCH (08:17)
[2023-03-13] MEDS: salt irrigation nasal spray 45 ML SPRAY NS SCH (08:17)
[2023-03-13] MEDS: lactose-reduced food (Ensure Enlive) - 237ml bottle PO SCH ×2 (08:18→13:00)
[2023-03-13] MEDS: apixaban 5mg tablet PO SCH (08:18)
[2023-03-13] MEDS: insulin Lispro (HumaLOG) vial - multi-dose SQ SCH (08:55)
[2023-03-13 09:23] VITALS: BP 113/86
--- NOTE | 2023-03-13 11:00 | NUR ---
Pt. refused wound care pictures on discharge.
--- NOTE | 2023-03-13 11:55 | NUR ---
Message: Milady Kapoor [phone] Pt. does not want to be full code. Asking to be limited code. Tonya [phone]
[2023-03-13 12:31] VITALS: BP 113/84
--- NOTE | 2023-03-13 13:15 | NUR ---
DISCHARGE NOTE: Report called to [facility] Critical care. RN had opportunities to ask questions. Pt. sent with all catheters and IVs per CM and zinc furnace charger. Belongings gathered up and left with pt. No home medication stored here. Reach transport here to take pt. Face sheets and transfer paperwork provided. Pt. given pain medication before transport.
== END 2023-03-13 13:15 | DRG 720 ==
LOC: ER 14:18 → ED HOLD 18:08 → PCU 3S 03-02 05:45
PROVIDERS: ADMIT Family Medicine; ATTEND Family Medicine
PROC: 02HV33Z Insertion of Infusion Device into Superior Vena Cava, Percutaneous Approach (ICD-10-PCS; 2023-03-01)
PROC: 5A09357 Assistance with Respiratory Ventilation, Less than 24 Consecutive Hours, Continuous Positive Airway Pressure (ICD-10-PCS; 2023-03-02)
PROC: 5A0935A Assistance with Respiratory Ventilation, Less than 24 Consecutive Hours, High Flow/Velocity Cannula (ICD-10-PCS; 2023-03-03)
PROC: 5A09357 Assistance with Respiratory Ventilation, Less than 24 Consecutive Hours, Continuous Positive Airway Pressure (ICD-10-PCS; 2023-03-03)
PROC: 5A09357 Assistance with Respiratory Ventilation, Less than 24 Consecutive Hours, Continuous Positive Airway Pressure (ICD-10-PCS; 2023-03-04)
PROC: 5A0935A Assistance with Respiratory Ventilation, Less than 24 Consecutive Hours, High Flow/Velocity Cannula (ICD-10-PCS; 2023-03-05)
PROC: 05HB33Z Insertion of Infusion Device into Right Basilic Vein, Percutaneous Approach (ICD-10-PCS; 2023-03-05)
PROC: B54MZZA Ultrasonography of Right Upper Extremity Veins, Guidance (ICD-10-PCS; 2023-03-05)
PROC: 5A0935A Assistance with Respiratory Ventilation, Less than 24 Consecutive Hours, High Flow/Velocity Cannula (ICD-10-PCS; 2023-03-06)
PROC: 5A0935A Assistance with Respiratory Ventilation, Less than 24 Consecutive Hours, High Flow/Velocity Cannula (ICD-10-PCS; 2023-03-07)
PROC: 5A09357 Assistance with Respiratory Ventilation, Less than 24 Consecutive Hours, Continuous Positive Airway Pressure (ICD-10-PCS; 2023-03-07)
PROC: 5A0935A Assistance with Respiratory Ventilation, Less than 24 Consecutive Hours, High Flow/Velocity Cannula (ICD-10-PCS; 2023-03-08)
PROC: 5A09357 Assistance with Respiratory Ventilation, Less than 24 Consecutive Hours, Continuous Positive Airway Pressure (ICD-10-PCS; 2023-03-08)
PROC: 5A0935A Assistance with Respiratory Ventilation, Less than 24 Consecutive Hours, High Flow/Velocity Cannula (ICD-10-PCS; 2023-03-09)
PROC: 5A09357 Assistance with Respiratory Ventilation, Less than 24 Consecutive Hours, Continuous Positive Airway Pressure (ICD-10-PCS; 2023-03-09)
PROC: 05HA33Z Insertion of Infusion Device into Left Brachial Vein, Percutaneous Approach (ICD-10-PCS; 2023-03-09)
PROC: B54NZZA Ultrasonography of Left Upper Extremity Veins, Guidance (ICD-10-PCS; 2023-03-09)
PROC: 5A0935A Assistance with Respiratory Ventilation, Less than 24 Consecutive Hours, High Flow/Velocity Cannula (ICD-10-PCS; 2023-03-10)
PROC: 5A09357 Assistance with Respiratory Ventilation, Less than 24 Consecutive Hours, Continuous Positive Airway Pressure (ICD-10-PCS; 2023-03-10)
PROC: 0W993ZX Drainage of Right Pleural Cavity, Percutaneous Approach, Diagnostic (ICD-10-PCS; principal; 2023-03-11)
PROC: 5A0935A Assistance with Respiratory Ventilation, Less than 24 Consecutive Hours, High Flow/Velocity Cannula (ICD-10-PCS; 2023-03-11)
PROC: 5A09357 Assistance with Respiratory Ventilation, Less than 24 Consecutive Hours, Continuous Positive Airway Pressure (ICD-10-PCS; 2023-03-11)
PROC: 5A0935A Assistance with Respiratory Ventilation, Less than 24 Consecutive Hours, High Flow/Velocity Cannula (ICD-10-PCS; 2023-03-12)
PROC: 5A0935A Assistance with Respiratory Ventilation, Less than 24 Consecutive Hours, High Flow/Velocity Cannula (ICD-10-PCS; 2023-03-13)
DX: A41.89 Other specified sepsis (principal); J96.21 Acute and chronic respiratory failure with hypoxia; I50.33 Acute on chronic diastolic (congestive) heart failure; E87.3 Alkalosis; J18.9 Pneumonia, unspecified organism; N17.9 Acute kidney failure, unspecified; I48.19 Other persistent atrial fibrillation; J44.0 Chronic obstructive pulmonary disease with (acute) lower respiratory infection; J91.8 Pleural effusion in other conditions classified elsewhere; Z20.822 Contact with and (suspected) exposure to COVID-19; I11.0 Hypertensive heart disease with heart failure; R65.20 Severe sepsis without septic shock; Z99.81 Dependence on supplemental oxygen; D64.9 Anemia, unspecified; E78.00 Pure hypercholesterolemia, unspecified; E87.6 Hypokalemia; F32.A Depression, unspecified; J44.1 Chronic obstructive pulmonary disease with (acute) exacerbation; F41.1 Generalized anxiety disorder; I25.10 Atherosclerotic heart disease of native coronary artery without angina pectoris; G43.909 Migraine, unspecified, not intractable, without status migrainosus; G47.33 Obstructive sleep apnea (adult) (pediatric); G89.29 Other chronic pain; K21.9 Gastro-esophageal reflux disease without esophagitis; M10.9 Gout, unspecified; B96.1 Klebsiella pneumoniae [K. pneumoniae] as the cause of diseases classified elsewhere; S20.219A Contusion of unspecified front wall of thorax, initial encounter; M54.9 Dorsalgia, unspecified; X58.XXXA Exposure to other specified factors, initial encounter; N30.80 Other cystitis without hematuria; R58 Hemorrhage, not elsewhere classified; Z53.20 Procedure and treatment not carried out because of patient's decision for unspecified reasons; I25.2 Old myocardial infarction; Z79.01 Long term (current) use of anticoagulants; Z79.02 Long term (current) use of antithrombotics/antiplatelets; Z82.49 Family history of ischemic heart disease and other diseases of the circulatory system; Z82.5 Family history of asthma and other chronic lower respiratory diseases; Z83.3 Family history of diabetes mellitus; Z90.710 Acquired absence of both cervix and uterus; Z95.5 Presence of coronary angioplasty implant and graft; Z88.7 Allergy status to serum and vaccine; Z79.899 Other long term (current) drug therapy; Z79.82 Long term (current) use of aspirin; Z87.891 Personal history of nicotine dependence; Y93.89 Activity, other specified; Y92.89 Other specified places as the place of occurrence of the external cause; Y99.8 Other external cause status
CPT/HCPCS: 32555; 36410; 36415; 36600; 71045; 71250; 74176; 76937; 76942; 80048; 80053; 82803; 82945; 82948; 83605; 83615; 83735; 83880; 84100; 84484; 85007; 85008; 85018; 85025; 85379; 86038; 86256; 87040; 87070; 87075; 87077; 87081; 87186; 87502; 87503; 87811; 89051; 92508; 92616; 93005; 93308; 94640; 94660; 94664; 94760; 97110; 97116; 97161; 97530; 97535; 99285; A4333; A4615; A4649; A5200; A6212; A6213; A6222; A6223; A6250; A6260; A6402; A6446; A6449; A6455; A7015; C1751; G0378; J0282; J0456; J0696; J1170; J1815; J1940; J2405; J2920; J2930; J3490; J7030; J7040; Q9963